=== PATIENT | female | born 1945 | race Caucasian/White ===

== ENCOUNTER 2018-07-10 12:25 | Inpatient (IN) | payer MEDICARE ==
[~2018-07-10] VITALS: Ht 154.9 cm; Wt 54.9 kg
--- NOTE | 2018-07-10 13:00 | EKG ---
[facility] [address] [place] [address] Test Date: 2018-07-10 Test Time: 12:28:48 Pat Name: EDGAR ARANDA Department: Room: Gender: F Irs Agent: : 1945 Requested By: TIMOTHY CERVANTES Order Number: [id number] Reading MD: Thuan Lantigua MD Measurements Intervals [place] Rate: 61 P: 69 [place]: 168 QRS: 56 QRSD: 82 T: 78 QT: 474 QTc: 484 Interpretive Statements SINUS RHYTHM Electronically Signed On 07-14-2018 13:18:08 CDT by Thuan Lantigua MD
--- NOTE | 2018-07-10 13:20 | RAD ---
CHEST AP ONLY Clinical indications: cough and short of air COMPARISON: None available. Findings: Mild bilateral peribronchial thickening is seen. No acute lung infiltrate or pleural effusion or pulmonary edema or lung mass or pneumothorax is seen. The heart size is accentuated due to AP magnification and rotation towards the left side. The pulmonary vasculature, mediastinum and both damian are unremarkable. Impression: Mild bilateral bronchitis which may be acute or chronic in nature. No consolidative pneumonia is seen. Hyperinflation is seen consistent with COPD. Electronically signed by: Franco Wynne MD (07/10/2018 1:17 PM) [place] [id number]
[2018-07-10 13:31] LABS: BASE EXCESS ABG 2 mmol/L (-3-3); HCO3 ABG 22 mmol/L (21-28); PCO2 ABG 24 mmHg (35-46); PO2 ABG 90 mmHg (65-108); SAT O2 ABG 97 % (92-99)
[2018-07-10 13:31] LABS: BASO # 0.1 x10^3/uL (0.0-0.2); BASO % 1 % (0-3); EOS # 0.4 x10^3/uL (0.0-0.7); EOS % 6 % (0-3); HEMATOCRIT 32.8 % (36.0-47.0); HEMOGLOBIN 10.9 g/dL (12.0-15.5); LYMPH # 2.1 x10^3/uL (1.0-4.8); LYMPH % 30 % (24-48); MEAN CORPUSCULAR HEMOGLOBIN 31 pg (25-35); MEAN CORPUSCULAR HGB CONC 33 g/dL (31-37); MEAN CORPUSCULAR VOLUME 94 fL (79-100); MONO # 0.5 x10^3/uL (0.0-1.1); MONO % 7 % (0-9); NEUT # 3.9 x10^3uL (1.8-7.7); NEUT % 56 % (31-73); PLATELET COUNT 286 x10^3/uL (140-400); WHITE BLOOD COUNT 7.1 x10^3/uL (4.0-11.0)
[2018-07-10 13:39] LABS: FIO2 ABG 28
[2018-07-10 13:45] LABS: CALCIUM 8.6 mg/dL (8.5-10.1); CREATININE 0.8 mg/dL (0.6-1.0); GFR 70.3; POTASSIUM 3.5 mmol/L (3.5-5.1)
[2018-07-10 13:46] LABS: PROTHROMBIN TIME PATIENT 15.8 SEC (11.7-14.0)
--- NOTE | 2018-07-10 13:49 | RAD ---
CT HEAD WO CONTRAST Clinical indications: Altered mental status, Comparison: None available. Technique: Noncontrast axial cross sectional scanning of the head was performed. PQRS compliance Statement One or more of the following individualized dose reduction techniques were utilized for this study: 1. Automated exposure control 2. Adjustment of the mA and/or kV according to patient size 3. Use of iterative reconstruction technique Findings: No acute intracranial hemorrhage or midline shift or mass-effect or hydrocephalus or extra-axial fluid collection is seen. There is a small ill-defined area of hypodensity involving the right centrum semiovale. No skull fracture or pneumocephalus is seen. Multiple small round radiolucencies less than 1 cm in size are seen within the calvarium. No opacification of the mastoid sinuses or the paranasal sinuses is seen. The maxillary sinuses are not completely seen in this study. Impression: No acute intracranial hemorrhage is seen. Small ill-defined focus of hypodensity involving the right centrum semiovale. This may represent ischemia and is of indeterminate age. Correlation with clinical history and findings is needed. Small round lucencies of the calvarium are seen measuring less than 1 cm in size. This may be secondary to senile osteoporosis although could also be seen with multiple myeloma if there is a history of such. Electronically signed by: Franco Wynne MD (07/10/2018 1:46 PM) [facility]
[2018-07-10 13:50] LABS: ALBUMIN 3.4 g/dL (3.4-5.0); ALBUMIN/GLOBULIN RATIO 1.3 (1.0-1.7); TOTAL BILIRUBIN 0.5 mg/dL (0.2-1.0); TOTAL PROTEIN 6.1 g/dL (6.4-8.2)
[2018-07-10 14:17] LABS: BILIRUBIN,URINE NEGATIVE (NEG); CLARITY,URINE CLEAR; COLOR,URINE YELLOW; NITRITE,URINE NEGATIVE (NEG); PH,URINE 8.5; PROTEIN,URINE NEGATIVE (NEG-TRACE); UROBILINOGEN,URINE 0.2 mg/dL (0.2 mg/dL)
[2018-07-10 14:27] LABS: HYALINE CASTS, URINE OCCASIONAL /HPF; SQUAMOUS EPITHELIAL CELL,UR FEW /LPF
[2018-07-10 14:28] LABS: BACTERIA,URINE 0 /HPF (0-FEW); RBC,URINE 0 /HPF (0-2); WBC,URINE 0 /HPF (0-4)
[2018-07-10 14:29] LABS: AMORPHOUS SEDIMENT,UR PRESENT /HPF
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
[2018-07-10] MEDS ORDERED: ASPIRIN CHEWABLE 81 MG TABLET. PO ONE (15:45)
[2018-07-10 17:12] VITALS: BP 187/80
[2018-07-10] MEDS ORDERED: CALC600T23 PO (17:58)
[2018-07-10] MEDS ORDERED: ASPI-630 PO (17:58)
[2018-07-10] MEDS ORDERED: ALPR0.5T PO (17:58)
[2018-07-10] MEDS ORDERED: ATOR40TA PO (17:58)
[2018-07-10] MEDS ORDERED: ALEN70TA3 PO (17:58)
[2018-07-10] MEDS ORDERED: ALBU2.5V8 INH ×2 (17:58→18:03)
[2018-07-10] MEDS ORDERED: MEMA10TA PO (17:59)
[2018-07-10] MEDS ORDERED: CHOL2000 PO (17:59)
[2018-07-10] MEDS ORDERED: NITR0.4T22 SL (17:59)
[2018-07-10] MEDS ORDERED: MULT1TAB52 PO (17:59)
[2018-07-10] MEDS ORDERED: ISOS30TA4 PO (17:59)
[2018-07-10] MEDS ORDERED: OMEG100021 PO (17:59)
[2018-07-10] MEDS ORDERED: GUAI400T63 PO (17:59)
[2018-07-10] MEDS ORDERED: UBID10CA7 PO (17:59)
[2018-07-10] MEDS ORDERED: DILT180C2 PO (17:59)
[2018-07-10] MEDS ORDERED: APIX5TAB PO (17:59)
[2018-07-10] MEDS ORDERED: FURO-69 PO (17:59)
[2018-07-10] MEDS ORDERED: LISI10TA2 PO (17:59)
[2018-07-10] MEDS ORDERED: METO-239 PO (17:59)
[2018-07-10] MEDS ORDERED: PYRI200T3 PO (18:03)
[2018-07-10] MEDS ORDERED: LEVO75TA PO (18:03)
[2018-07-10] MEDS ORDERED: UMEC1DIS IH (18:03)
[2018-07-10] MEDS ORDERED: POTA20TA82 PO (18:03)
[2018-07-10] MEDS ORDERED: PANT20TA2 PO (18:03)
[2018-07-10] MEDS ORDERED: TRIA15OI TP (18:03)
[2018-07-10] MEDS ORDERED: NITROGLYCERIN SUBLINGUAL 0.4 MG BOTTLE OF 25. SL PRN (19:00)
[2018-07-10] MEDS ORDERED: TRIAMCINOLONE ACETONIDE 0.1% TOPICAL OINTMENT 15GM TUBE. TP PRN (19:00)
[2018-07-10 19:15] VITALS: BP 158/59
[2018-07-10] MEDS ORDERED: guaiFENesin ORAL 200 MG/10 ML LIQUID. PO PRN (19:15)
[2018-07-10] MEDS: ANORO ELLIPTA INHALATION INH SCH (20:22)
[2018-07-10] MEDS: APIXABAN 5 MG TABLET. PO SCH (20:23)
[2018-07-10] MEDS: ATORVASTATIN CALCIUM 40 MG TABLET. PO SCH (20:23)
--- NOTE | 2018-07-10 21:58 | HP ---
ADMIT DATE: 07/10/2018 CHIEF COMPLAINT: Speech difficulty. HISTORY OF PRESENT ILLNESS: The patient is a pleasant 73-year-old female who normally goes to [facility], but refused to go there. She is somewhat of a poor historian. She is slow to get her words out; I am not sure if this is her baseline or not. Apparently, the ambulance company that transported her here is very familiar with her. She does have a history of COPD as well. Basically, she has been having neuro symptoms rated at 7/10. She states her memory is a little weak at times, she cannot really remember who her doctor is. Symptoms are worse with trying to talk, better with being quiet, describes it as agonizing. I discussed the case with the ER physician. We are going to admit the patient and consult Neurology. PAST MEDICAL HISTORY: COPD and hernia repair. I suspect she may have some underlying dementia. ALLERGIES: None. FAMILY HISTORY: Coronary artery disease. SOCIAL HISTORY: She quit smoking 6 years ago. No drinking or drugs. MEDICATIONS: Reviewed, please refer to the MRAD. REVIEW OF SYSTEMS: Unable to obtain. The patient is borderline poor historian and really cannot seem to get her words out. PHYSICAL EXAMINATION: VITAL SIGNS: Temperature afebrile, pulse 98, respirations 18, blood pressure 132/91. GENERAL: She is awake, alert, talking. We have a 1:1 observer. HEART: Normal S1, S2. LUNGS: Diminished, but clear. ABDOMEN: Soft. EXTREMITIES: Trace edema. SKIN: No rash. ENDOCRINE: No thyromegaly. LYMPHATICS: No cervical nodes. HEMATOLOGIC: No bruising. PSYCHIATRIC: She is anxious. NEUROLOGICAL: She is moving all extremities, but her speech is very slow. She is having a hard time finding her words. LABORATORY DATA: White count 7, hemoglobin 10.9, platelets 286. Electrolytes are normal. ASSESSMENT AND PLAN: Stroke symptoms. The patient is being admitted. We will consult Neurology, suspect she may need an MRI. PT, OT, Speech Therapy. Home meds, frequent labs. DVT prophylaxis. SNU evaluation. PROGNOSIS: Long-term guarded. Suspect she might need nursing home care. LIZ CASTILLO DO DR: RAIZA/yossi JOB#: [id number] / [id number]
[2018-07-10 23:11] VITALS: BP 122/50
[2018-07-11 03:11] VITALS: BP 150/68
[2018-07-11] MEDS: LEVOTHYROXINE 75 MCG TABLET PO SCH (06:36)
[2018-07-11 07:05] VITALS: BP 147/68
[2018-07-11] MEDS ORDERED: ACETAMINOPHEN 650 MG SUPP.RECT. PR PRN (08:45)
[2018-07-11] MEDS ORDERED: ACETAMINOPHEN 325 MG TABLET. PO PRN (08:45)
[2018-07-11] MEDS ORDERED: POTASSIUM CHLORIDE 99 MG PO SCH (09:00)
[2018-07-11] MEDS: MEMANTINE 10 MG TABLET. PO SCH ×3 (09:00→20:48)
[2018-07-11] MEDS ORDERED: UBIDECARENONE 10 MG PO SCH (09:00)
--- NOTE | 2018-07-11 09:13 | PDOC2 ---
NEUROLOGY CONSULT Date of Admission Date of Admission DATE: 07/11/18 TIME: 09:05 Reason for Consult Reason for Consult: Altered mental status Referring Physician Referring Physician: Dr. Gao Source Source: Chart review, Patient History of Present Illness History of Present Illness The patient is a 73-year-old right-handed female who called ambulance [place] because she was not feeling right. Today she's tiny she called because she thinks she has a hernia. Emergency room and history of physical from last night stay for the patient was having trouble getting her words out. She is a very poor historian and has no insight into how long she may have been having any problem. She denies a history of stroke, seizure, or head injury. She usually gets her care at [facility]. Past Medical History Cardiovascular: HTN Pulmonary: COPD CENTRAL NERVOUS SYSTEM: Dementia (listed in nursing history) GI: GERD Psych: Anxiety, Other (paranoid disorder) Endocrine: Osteoporosis Past Surgical History Past Surgical History: No pertinent history Family History Family History: Cancer Social History Social History twice, lives alone, says that she is estranged from her daughter, no tobacco or alcohol Current Medications Current Medications Current Medications Aspirin (Children'S Aspirin) 324 mg 1X ONCE PO Last administered on 07/10/18at 16:36; Start 07/10/18 at 15:45; Stop 07/10/18 at 16:30; Status DC Albuterol Sulfate (Ventolin Neb Soln) 2.5 mg PRN Q6HRS PRN INH SHORTNESS OF BREATH; Start 07/10/18 at 19:00 Alprazolam (Xanax) 0.75 mg PRN DAILY PRN PO ANXIETY / AGITATION; Start 07/10/18 at 19:00 Apixaban (Eliquis) 5 mg BID PO Last administered on 07/10/18at 20:23; Start at 21:00 Aspirin (Children'S Aspirin) 81 mg DAILY PO ; Start 07/11/18 at 09:00 Atorvastatin Calcium (Lipitor) 40 mg QHS PO Last administered on 07/10/18at 20:23 ; Start 07/10/18 at 21:00 Furosemide (Lasix) 10 mg DAILY PO ; Start 07/11/18 at 09:00 Isosorbide Mononitrate (Imdur) 30 mg DAILY PO ; Start 07/11/18 at 09:00 Levothyroxine Sodium (Synthroid) 75 mcg DAILY07 PO Last administered on at 06:36; Start 07/11/18 at 07:00 Lisinopril (Prinivil) 10 mg DAILY PO ; Start 07/11/18 at 09:00 Metoprolol Succinate (Toprol Xl) 25 mg DAILY PO ; Start 07/11/18 at 09:00 Nitroglycerin (Nitrostat) 0.4 mg PRN Q5MIN PRN SL CHEST PAIN; Start 07/10/18 at 19:00 Triamcinolone Acetonide (Kenalog) 1 mayank PRN BID PRN TP RASH; Start 07/10/18 at 19:00 Non-Formulary Medication (Alendronate Sodium (Fosamax)) 1 tab WEEKLY PO ; Start 07/17/18 at 09:00; Status UNV Calcium Carbonate/ Glycine (Oscal) 1,000 mg TIDAFTMEAL PO ; Start 07/11/18 at 09: 00 Vitamin D (Vitamin D3) 2,000 unit DAILY PO ; Start 07/11/18 at 09:00 Diltiazem HCl (Cardizem 24hr Cd) 120 mg DAILY PO ; Start 07/11/18 at 09:00 Guaifenesin (Robitussin) 400 mg PRN BID PRN PO COUGH; Start 07/10/18 at 19:15 Memantine (Namenda) 10 mg DAILY PO ; Start 07/11/18 at 09:00 Multivitamins (Thera M Plus) 1 tab DAILY PO ; Start 07/11/18 at 09:00 Fish Oil (Fish Oil) 1,000 mg DAILY PO ; Start 07/11/18 at 09:00 Pantoprazole Sodium (Protonix) 40 mg DAILYAC PO ; Start 07/11/18 at 07:30 Non-Formulary Medication (Potassium Chloride ) 99 mg DAILY PO ; Start 07/11/18 at 09:00; Status UNV Pyridoxine HCl (Vitamin B-6) 200 mg DAILY PO ; Start 07/11/18 at 09:00 Non-Formulary Medication (Ubidecarenone (Coenzyme Q10)) 10 mg DAILY PO ; Start 07/11/18 at 09:00; Status UNV Non-Formulary Medication 1 ea DAILY INH Last administered on 07/10/18at 20:22; Start 07/11/18 at 09:00 Info (Anti-Coagulation Monitoring By Pharmacy) 1 each PRN DAILY PRN MC SEE COMMENTS; Start 07/11/18 at 07:45 Acetaminophen (Tylenol) 650 mg PRN Q6HRS PRN PO TEMP > 100.4F; Start 07/11/18 at 08:45 Acetaminophen (Tylenol Supp) 650 mg PRN Q4HRS PRN LA TEMP > 100.4F; Start at 08:45 Active Scripts Active Reported Anoro Ellipta 62.5-25 Mcg Inh (Umeclidinium Brm/Vilanterol Tr) 1 Each Disk.w.dev 1 Each IH DAILY Triamcinolone Acetonide 0.1% Oint (Triamcinolone Acetonide) 15 Gm Oint...g. 1 Mayank TP PRN BID MIX WITH EUCERIN DIRECTED BY PHYSICIAN Synthroid (Levothyroxine Sodium) 75 Mcg Tablet 1 Tab PO DAILY B-6 (Pyridoxine HCl (Vitamin B6)) 200 Mg Tablet.er 200 Mg PO DAILY Proair Hfa Inhaler (Albuterol Sulfate) 8.5 Gm Hfa.aer.ad 2 Puff INH PRN Q6HRS PRN Potassium Chloride 20 Meq Tablet.er 99 Mg PO DAILY Protonix (Pantoprazole Sodium) 20 Mg Tablet.dr 40 Mg PO DAILY Fish Oil 1,000 mg Softgel ([place]-3/Dha/Epa/Fish Oil) 1,000 Mg Capsule 1,000 Mg PO DAILY NITROGLYCERIN SubLingual (Nitroglycerin) 0.4 Mg Tab.subl 0.4 Mg SL PRN Q5MIN PRN Multivitamins (Multivitamin) 1 Each Tablet 1 Tab PO DAILY Metoprolol Succinate ( Xl ) (Metoprolol Succinate) 25 Mg Tab.er.24h 25 Mg PO DAILY Namenda (Memantine Hcl) 10 Mg Tablet 10 Mg PO DAILY Lisinopril 10 Mg Tablet 10 Mg PO DAILY Isosorbide Mononitrate Er (Isosorbide Mononitrate) 30 Mg Tab.er.24h 30 Mg PO DAILY Guaifenesin 400 Mg Tablet 400 Mg PO PRN BID Lasix (Furosemide) 20 Mg Tablet 10 Mg PO DAILY Eliquis (Apixaban) 5 Mg Tablet 5 Mg PO BID Cardizem Cd (Diltiazem Hcl) 180 Mg Cap.er.24h 120 Mg PO DAILY Coenzyme Q10 (Ubidecarenone) 10 Mg Capsule 10 Mg PO DAILY Vitamin D (Cholecalciferol (Vitamin D3)) 2,000 Unit Capsule 1 Cap PO DAILY Calcium Carbonate 600 Mg Tablet 1,200 Mg PO TID Lipitor (Atorvastatin Calcium) 40 Mg Tablet 1 Tab PO QHS Aspirin 81 Mg Tab.chew 1 Tab PO DAILY Xanax (Alprazolam) 0.5 Mg Tablet 0.75 Mg PO PRN DAILY PRN Fosamax (Alendronate Sodium) 70 Mg Tablet 1 Tab PO WEEKLY Proair Hfa Inhaler (Albuterol Sulfate) 8.5 Gm Hfa.aer.ad 1 Puff INH PRN Q6HRS PRN Allergies Allergies: Coded Allergies: NSAIDS (Non-Steroidal Anti-Inflamma (Verified Allergy, Unknown, 07/10/18) atropine (Verified Allergy, Unknown, 07/10/18) bacitracin (Verified Allergy, Unknown, 07/10/18) belladonna alkaloids (Verified Allergy, Unknown, 07/10/18) diphenhydramine (Verified Allergy, Unknown, 07/10/18) gramicidin D (Verified Allergy, Unknown, 07/10/18) hyoscyamine (Verified Allergy, Unknown, 07/10/18) ketorolac (Verified Allergy, Unknown, 07/10/18) morphine (Verified Allergy, Unknown, 07/10/18) neomycin (Verified Allergy, Unknown, 07/10/18) penicillin G (Verified Allergy, Unknown, 07/10/18) penicillin V (Verified Allergy, Unknown, 07/10/18) phenobarbital (Verified Allergy, Unknown, 07/10/18) polymyxin B (Verified Allergy, Unknown, 07/10/18) scopolamine (Verified Allergy, Unknown, 07/10/18) ROS Review of System Negative for fever, chills, weight loss, shortness of breath, chest pain, indigestion, hematochezia, melena, and dysuria. Full 14-point review of systems is negative. Physical Exam Physical Examination General: Well-developed, well-nourished white female in no acute distress HEENT: Normocephalic andatraumatic. Temporal arteriespulsatile and nontender. Neck: Supple without bruit, no meningismus Musculoskeletal: Stability:see neurologic. Gait exam:see neurologic. Tone:see neurologic. Strength:see neurologic. Neurological: Mental Status:orientation, memory, attention span/concentration, language, fund of knowledge: she does not know the name of the hospital, she does know the date in the name of the president. Speech is fluent but she hesitates getting her thoughts together. She names, repeats, and comprehends well.. Cranial Nerves:Pupils equal and reactive to light, extraocular movements are intact, visual wright are full to confrontation. Decreased visual acuity right ey (old according to patient). Facial sensation is normal. There is no facial asymmetry. Vestibulo-ocular reflex is intact. Palate elevates and tongue protrudes in midline. All other cranial related problems are negative except as mentioned before.Reflexes:2+ and symmetric with flexor plantar responses. Motor:5/5 strength with normal tone and bulk. Coordination:Finger-nose finger and [id number] testing are normal. Rapid alternating movements and fine finger movements are intact. Gait:Normal, including tandem. Sensory:Normal pinprick, vibration, light touch, proprioception. Vitals VITALS Vital Signs Date Time Temp Pulse Resp B/P (MAP) Pulse Ox O2 Delivery O2 Flow Rate FiO2 07/11/18 08:03 98 Nasal Cannula 2.0 07/11/18 07:05 98.0 51 14 147/68 (94) 98.0 Labs Labs Laboratory Tests Test 07/10/18 12:29 07/10/18 13:20 07/10/18 13:25 07/10/18 14:06 Glucose (Fingerstick) 77 mg/dL (70-99) White Blood Count 7.1 x10^3/uL (4.0-11.0) Red Blood Count 3.50 x10^6/uL (3.50-5.40) Hemoglobin 10.9 g/dL (12.0-15.5) Hematocrit 32.8 % (36.0-47.0) Mean Corpuscular Volume 94 fL (79-100) Mean Corpuscular Hemoglobin 31 pg (25-35) Mean Corpuscular Hemoglobin Concent 33 g/dL (31-37) Red Cell Distribution Width 15.0 % (11.5-14.5) Platelet Count 286 x10^3/uL (140-400) Neutrophils (%) (Auto) 56 % (31-73) Lymphocytes (%) (Auto) 30 % (24-48) Monocytes (%) (Auto) 7 % (0-9) Eosinophils (%) (Auto) 6 % (0-3) Basophils (%) (Auto) 1 % (0-3) Neutrophils # (Auto) 3.9 x10^3uL (1.8-7.7) Lymphocytes # (Auto) 2.1 x10^3/uL (1.0-4.8) Monocytes # (Auto) 0.5 x10^3/uL (0.0-1.1) Eosinophils # (Auto) 0.4 x10^3/uL (0.0-0.7) Basophils # (Auto) 0.1 x10^3/uL (0.0-0.2) Prothrombin Time 15.8 SEC (11.7-14.0) Prothromb Time International Ratio 1.3 (0.8-1.1) Activated Partial Thromboplast Time 44 SEC (24-38) Sodium Level 146 mmol/L (136-145) Potassium Level 3.5 mmol/L (3.5-5.1) Chloride Level 106 mmol/L (98-107) Carbon Dioxide Level 28 mmol/L (21-32) Anion Gap 12 (6-14) Blood Urea Nitrogen 12 mg/dL (7-20) Creatinine 0.8 mg/dL (0.6-1.0) Estimated GFR (Cockcroft-Gault) 70.3 BUN/Creatinine Ratio 15 (6-20) Glucose Level 92 mg/dL (70-99) Calcium Level 8.6 mg/dL (8.5-10.1) Total Bilirubin 0.5 mg/dL (0.2-1.0) Aspartate Amino Transf (AST/SGOT) 27 U/L (15-37) Alanine Aminotransferase (ALT/SGPT) 23 U/L (14-59) Alkaline Phosphatase 81 U/L (46-116) Troponin I Quantitative 0.021 ng/mL (0.000-0.055) DH-Ncc-N-Type Natriuretic Peptide 631 pg/mL (0-124) Total Protein 6.1 g/dL (6.4-8.2) Albumin 3.4 g/dL (3.4-5.0) Albumin/Globulin Ratio 1.3 (1.0-1.7) Lipase 105 U/L (73-393) O2 Saturation 97 % (92-99) Arterial Blood pH 7.59 (7.35-7.45) Arterial Blood pCO2 at Patient Temp 24 mmHg (35-46) Arterial Blood pO2 at Patient Temp 90 mmHg (65-108) Arterial Blood HCO3 22 mmol/L (21-28) Arterial Blood Base Excess 2 mmol/L (-3-3) FiO2 28 Urine Collection Type U cath Urine Color Yellow Urine Clarity Clear Urine pH 8.5 Urine Specific [place] 1.010 Urine Protein Negative mg/dL (NEG-TRACE) Urine Glucose (UA) Negative mg/dL (NEG) Urine Ketones (Stick) Negative mg/dL (NEG) Urine Blood Negative (NEG) Urine Nitrite Negative (NEG) Urine Bilirubin Negative (NEG) Urine Urobilinogen Dipstick 0.2 mg/dL (0.2 mg/dL) Urine Leukocyte Esterase Negative (NEG) Urine RBC 0 /HPF (0-2) Urine WBC 0 /HPF (0-4) Urine Squamous Epithelial Cells Few /LPF Urine Amorphous Sediment Present /HPF Urine Bacteria 0 /HPF (0-FEW) Urine Hyaline Casts Occasional /HPF Urine Mucus Slight /LPF Laboratory Tests Test 07/10/18 12:29 07/10/18 13:20 07/10/18 13:25 07/10/18 14:06 Glucose (Fingerstick) 77 mg/dL (70-99) White Blood Count 7.1 x10^3/uL (4.0-11.0) Red Blood Count 3.50 x10^6/uL (3.50-5.40) Hemoglobin 10.9 g/dL (12.0-15.5) Hematocrit 32.8 % (36.0-47.0) Mean Corpuscular Volume 94 fL (79-100) Mean Corpuscular Hemoglobin 31 pg (25-35) Mean Corpuscular Hemoglobin Concent 33 g/dL (31-37) Red Cell Distribution Width 15.0 % (11.5-14.5) Platelet Count 286 x10^3/uL (140-400) Neutrophils (%) (Auto) 56 % (31-73) Lymphocytes (%) (Auto) 30 % (24-48) Monocytes (%) (Auto) 7 % (0-9) Eosinophils (%) (Auto) 6 % (0-3) Basophils (%) (Auto) 1 % (0-3) Neutrophils # (Auto) 3.9 x10^3uL (1.8-7.7) Lymphocytes # (Auto) 2.1 x10^3/uL (1.0-4.8) Monocytes # (Auto) 0.5 x10^3/uL (0.0-1.1) Eosinophils # (Auto) 0.4 x10^3/uL (0.0-0.7) Basophils # (Auto) 0.1 x10^3/uL (0.0-0.2) Prothrombin Time 15.8 SEC (11.7-14.0) Prothromb Time International Ratio 1.3 (0.8-1.1) Activated Partial Thromboplast Time 44 SEC (24-38) Sodium Level 146 mmol/L (136-145) Potassium Level 3.5 mmol/L (3.5-5.1) Chloride Level 106 mmol/L (98-107) Carbon Dioxide Level 28 mmol/L (21-32) Anion Gap 12 (6-14) Blood Urea Nitrogen 12 mg/dL (7-20) Creatinine 0.8 mg/dL (0.6-1.0) Estimated GFR (Cockcroft-Gault) 70.3 BUN/Creatinine Ratio 15 (6-20) Glucose Level 92 mg/dL (70-99) Calcium Level 8.6 mg/dL (8.5-10.1) Total Bilirubin 0.5 mg/dL (0.2-1.0) Aspartate Amino Transf (AST/SGOT) 27 U/L (15-37) Alanine Aminotransferase (ALT/SGPT) 23 U/L (14-59) Alkaline Phosphatase 81 U/L (46-116) Troponin I Quantitative 0.021 ng/mL (0.000-0.055) GY-Xya-S-Type Natriuretic Peptide 631 pg/mL (0-124) Total Protein 6.1 g/dL (6.4-8.2) Albumin 3.4 g/dL (3.4-5.0) Albumin/Globulin Ratio 1.3 (1.0-1.7) Lipase 105 U/L (73-393) O2 Saturation 97 % (92-99) Arterial Blood pH 7.59 (7.35-7.45) Arterial Blood pCO2 at Patient Temp 24 mmHg (35-46) Arterial Blood pO2 at Patient Temp 90 mmHg (65-108) Arterial Blood HCO3 22 mmol/L (21-28) Arterial Blood Base Excess 2 mmol/L (-3-3) FiO2 28 Urine Collection Type U cath Urine Color Yellow Urine Clarity Clear Urine pH 8.5 Urine Specific [place] 1.010 Urine Protein Negative mg/dL (NEG-TRACE) Urine Glucose (UA) Negative mg/dL (NEG) Urine Ketones (Stick) Negative mg/dL (NEG) Urine Blood Negative (NEG) Urine Nitrite Negative (NEG) Urine Bilirubin Negative (NEG) Urine Urobilinogen Dipstick 0.2 mg/dL (0.2 mg/dL) Urine Leukocyte Esterase Negative (NEG) Urine RBC 0 /HPF (0-2) Urine WBC 0 /HPF (0-4) Urine Squamous Epithelial Cells Few /LPF Urine Amorphous Sediment Present /HPF Urine Bacteria 0 /HPF (0-FEW) Urine Hyaline Casts Occasional /HPF Urine Mucus Slight /LPF Images Images CT head: No acute intracranial hemorrhage or midline shift or mass-effect or hydrocephalus or extra-axial fluid collection is seen. There is a small ill-defined area of hypodensity involving the right centrum semiovale. No skull fracture or pneumocephalus is seen. Multiple small round radiolucencies less than 1 cm in size are seen within the calvarium. No opacification of the mastoid sinuses or the paranasal sinuses is seen. The maxillary sinuses are not completely seen in this study. Impression: No acute intracranial hemorrhage is seen. Small ill-defined focus of hypodensity involving the right centrum semiovale. This may represent ischemia and is of indeterminate age. Correlation with clinical history and findings is needed. Small round lucencies of the calvarium are seen measuring less than 1 cm in size. This may be secondary to senile osteoporosis although could also be seen with multiple myeloma if there is a history of such. Assessment/Plan Assessment/Plan Impression: I really get a flavor of chronic dementia which is also in the nursing history but we don't have any clear-cut past history. I find no focal abnormalities. I was jd Grace had a small left hemispheric stroke affecting language. There may be metabolic abnormalities we have not uncovered. Even ictal dementia is possible. Recommendations: MRI of the brain Echocardiogram Carotid Doppler studies Laboratory studies Rehabilitation modalities. Most likely she needs placement. No family members are listed to talk to and she does not know of anyone I should talk to about her case. Thank you for letting me help of the patient's care. ZENY SZYMANSKI MD Jul 11, 2018 09:13
[2018-07-11] MEDS: OMEGA-3 FATTY ACIDS/FISH OIL 1,000 MG CAPSULE. PO SCH (09:15)
[2018-07-11] MEDS: MULTIVITAMIN with MINERAL TABLET. PO SCH (09:16)
[2018-07-11] MEDS: PANTOPRAZOLE 40 MG TABLET.DR. PO SCH (09:16)
[2018-07-11] MEDS: CALCIUM CARBONATE 500 MG TABLET PO SCH ×3 (09:16→18:10)
[2018-07-11] MEDS: FUROSEMIDE 20 MG TABLET PO SCH (09:16)
[2018-07-11] MEDS: METOPROLOL SUCC 24HR ER 25 MG TAB.ER.24H. PO SCH (09:17)
[2018-07-11] MEDS: ASPIRIN CHEWABLE 81 MG TABLET. PO SCH (09:17)
[2018-07-11] MEDS: CHOLECALCIFEROL (VITAMIN D3) 1,000 UNIT TABLET PO SCH (09:17)
[2018-07-11] MEDS: ISOSORBIDE MONONITRATE ER 30 MG TAB.ER.24H PO SCH (09:17)
[2018-07-11] MEDS: APIXABAN 5 MG TABLET. PO SCH ×2 (09:17→20:48)
[2018-07-11] MEDS: PYRIDOXINE 50 MG TABLET. PO SCH (09:18)
[2018-07-11] MEDS: LISINOPRIL 10 MG TABLET PO SCH (09:18)
[2018-07-11] MEDS: ANTI-COAG MONITOR BY PHARMACY. MC PRN (10:48)
[2018-07-11 11:00] VITALS: BP 141/60
--- NOTE | 2018-07-11 11:29 | PDOC ---
PROGRESS NOTES Chief Complaint Chief Complaint Speech Difficulty Confusion CVA? Memory loss- Dementia? COPD FH of CAD Former smoker History of Present Illness History of Present Illness Ms Jimenez is a 73 yo F who was admitted for confusion/difficulty speaking, PMH COPD and former smoker She was seen and examined in her room this morning, NAD She was resting comfortably, sitting on the side of her bed with 1:1 at bedside She reported feeling confused and spoke at some length about chronic neck pain she experiences Discussed with RN Vitals Vitals Vital Signs Date Time Temp Pulse Resp B/P (MAP) Pulse Ox O2 Delivery O2 Flow Rate FiO2 07/11/18 09:18 51 147/68 07/11/18 08:03 98 Nasal Cannula 2.0 07/11/18 07:05 98.0 14 98.0 Physical Exam General: Alert, Cooperative, No acute distress Heart: No murmurs, Other (bradycardic- 50's) Lungs: Clear Abdomen: Normal bowel sounds, Soft Extremities: No clubbing, No edema Skin: No rashes, No breakdown, No significant lesion Labs LABS Laboratory Tests Test 07/10/18 12:29 07/10/18 13:20 07/10/18 13:25 07/10/18 14:06 Glucose (Fingerstick) 77 mg/dL (70-99) White Blood Count 7.1 x10^3/uL (4.0-11.0) Red Blood Count 3.50 x10^6/uL (3.50-5.40) Hemoglobin 10.9 g/dL (12.0-15.5) Hematocrit 32.8 % (36.0-47.0) Mean Corpuscular Volume 94 fL (79-100) Mean Corpuscular Hemoglobin 31 pg (25-35) Mean Corpuscular Hemoglobin Concent 33 g/dL (31-37) Red Cell Distribution Width 15.0 % (11.5-14.5) Platelet Count 286 x10^3/uL (140-400) Neutrophils (%) (Auto) 56 % (31-73) Lymphocytes (%) (Auto) 30 % (24-48) Monocytes (%) (Auto) 7 % (0-9) Eosinophils (%) (Auto) 6 % (0-3) Basophils (%) (Auto) 1 % (0-3) Neutrophils # (Auto) 3.9 x10^3uL (1.8-7.7) Lymphocytes # (Auto) 2.1 x10^3/uL (1.0-4.8) Monocytes # (Auto) 0.5 x10^3/uL (0.0-1.1) Eosinophils # (Auto) 0.4 x10^3/uL (0.0-0.7) Basophils # (Auto) 0.1 x10^3/uL (0.0-0.2) Prothrombin Time 15.8 SEC (11.7-14.0) Prothromb Time International Ratio 1.3 (0.8-1.1) Activated Partial Thromboplast Time 44 SEC (24-38) Sodium Level 146 mmol/L (136-145) Potassium Level 3.5 mmol/L (3.5-5.1) Chloride Level 106 mmol/L (98-107) Carbon Dioxide Level 28 mmol/L (21-32) Anion Gap 12 (6-14) Blood Urea Nitrogen 12 mg/dL (7-20) Creatinine 0.8 mg/dL (0.6-1.0) Estimated GFR (Cockcroft-Gault) 70.3 BUN/Creatinine Ratio 15 (6-20) Glucose Level 92 mg/dL (70-99) Calcium Level 8.6 mg/dL (8.5-10.1) Total Bilirubin 0.5 mg/dL (0.2-1.0) Aspartate Amino Transf (AST/SGOT) 27 U/L (15-37) Alanine Aminotransferase (ALT/SGPT) 23 U/L (14-59) Alkaline Phosphatase 81 U/L (46-116) Troponin I Quantitative 0.021 ng/mL (0.000-0.055) BK-Gco-E-Type Natriuretic Peptide 631 pg/mL (0-124) Total Protein 6.1 g/dL (6.4-8.2) Albumin 3.4 g/dL (3.4-5.0) Albumin/Globulin Ratio 1.3 (1.0-1.7) Lipase 105 U/L (73-393) O2 Saturation 97 % (92-99) Arterial Blood pH 7.59 (7.35-7.45) Arterial Blood pCO2 at Patient Temp 24 mmHg (35-46) Arterial Blood pO2 at Patient Temp 90 mmHg (65-108) Arterial Blood HCO3 22 mmol/L (21-28) Arterial Blood Base Excess 2 mmol/L (-3-3) FiO2 28 Urine Collection Type U cath Urine Color Yellow Urine Clarity Clear Urine pH 8.5 Urine Specific [place] 1.010 Urine Protein Negative mg/dL (NEG-TRACE) Urine Glucose (UA) Negative mg/dL (NEG) Urine Ketones (Stick) Negative mg/dL (NEG) Urine Blood Negative (NEG) Urine Nitrite Negative (NEG) Urine Bilirubin Negative (NEG) Urine Urobilinogen Dipstick 0.2 mg/dL (0.2 mg/dL) Urine Leukocyte Esterase Negative (NEG) Urine RBC 0 /HPF (0-2) Urine WBC 0 /HPF (0-4) Urine Squamous Epithelial Cells Few /LPF Urine Amorphous Sediment Present /HPF Urine Bacteria 0 /HPF (0-FEW) Urine Hyaline Casts Occasional /HPF Urine Mucus Slight /LPF Review of Systems Review of Systems Pt reports mild generalized weakness, confusion, and neck pain Pt denies CO, SOB, n/v Assessment and Plan Assessmemt and Plan Speech Difficulty Confusion CVA? Memory loss- Dementia? COPD FH of CAD Former smoker Plan Neurology saw her today- recommend MRI, Echocardiogram, Carotid Doppler studies SNU evaluation PT/OT speech therapy home meds routine labs DVT prophylaxis D/C dispo pending- likely SNU will be needed Comment Review of Relevant I have reviewed the following items vidal (where applicable) has been applied. Labs Laboratory Tests Test 07/10/18 12:29 07/10/18 13:20 07/10/18 13:25 07/10/18 14:06 Glucose (Fingerstick) 77 mg/dL (70-99) White Blood Count 7.1 x10^3/uL (4.0-11.0) Red Blood Count 3.50 x10^6/uL (3.50-5.40) Hemoglobin 10.9 g/dL (12.0-15.5) Hematocrit 32.8 % (36.0-47.0) Mean Corpuscular Volume 94 fL (79-100) Mean Corpuscular Hemoglobin 31 pg (25-35) Mean Corpuscular Hemoglobin Concent 33 g/dL (31-37) Red Cell Distribution Width 15.0 % (11.5-14.5) Platelet Count 286 x10^3/uL (140-400) Neutrophils (%) (Auto) 56 % (31-73) Lymphocytes (%) (Auto) 30 % (24-48) Monocytes (%) (Auto) 7 % (0-9) Eosinophils (%) (Auto) 6 % (0-3) Basophils (%) (Auto) 1 % (0-3) Neutrophils # (Auto) 3.9 x10^3uL (1.8-7.7) Lymphocytes # (Auto) 2.1 x10^3/uL (1.0-4.8) Monocytes # (Auto) 0.5 x10^3/uL (0.0-1.1) Eosinophils # (Auto) 0.4 x10^3/uL (0.0-0.7) Basophils # (Auto) 0.1 x10^3/uL (0.0-0.2) Prothrombin Time 15.8 SEC (11.7-14.0) Prothromb Time International Ratio 1.3 (0.8-1.1) Activated Partial Thromboplast Time 44 SEC (24-38) Sodium Level 146 mmol/L (136-145) Potassium Level 3.5 mmol/L (3.5-5.1) Chloride Level 106 mmol/L (98-107) Carbon Dioxide Level 28 mmol/L (21-32) Anion Gap 12 (6-14) Blood Urea Nitrogen 12 mg/dL (7-20) Creatinine 0.8 mg/dL (0.6-1.0) Estimated GFR (Cockcroft-Gault) 70.3 BUN/Creatinine Ratio 15 (6-20) Glucose Level 92 mg/dL (70-99) Calcium Level 8.6 mg/dL (8.5-10.1) Total Bilirubin 0.5 mg/dL (0.2-1.0) Aspartate Amino Transf (AST/SGOT) 27 U/L (15-37) Alanine Aminotransferase (ALT/SGPT) 23 U/L (14-59) Alkaline Phosphatase 81 U/L (46-116) Troponin I Quantitative 0.021 ng/mL (0.000-0.055) OX-Whi-W-Type Natriuretic Peptide 631 pg/mL (0-124) Total Protein 6.1 g/dL (6.4-8.2) Albumin 3.4 g/dL (3.4-5.0) Albumin/Globulin Ratio 1.3 (1.0-1.7) Lipase 105 U/L (73-393) O2 Saturation 97 % (92-99) Arterial Blood pH 7.59 (7.35-7.45) Arterial Blood pCO2 at Patient Temp 24 mmHg (35-46) Arterial Blood pO2 at Patient Temp 90 mmHg (65-108) Arterial Blood HCO3 22 mmol/L (21-28) Arterial Blood Base Excess 2 mmol/L (-3-3) FiO2 28 Urine Collection Type U cath Urine Color Yellow Urine Clarity Clear Urine pH 8.5 Urine Specific [place] 1.010 Urine Protein Negative mg/dL (NEG-TRACE) Urine Glucose (UA) Negative mg/dL (NEG) Urine Ketones (Stick) Negative mg/dL (NEG) Urine Blood Negative (NEG) Urine Nitrite Negative (NEG) Urine Bilirubin Negative (NEG) Urine Urobilinogen Dipstick 0.2 mg/dL (0.2 mg/dL) Urine Leukocyte Esterase Negative (NEG) Urine RBC 0 /HPF (0-2) Urine WBC 0 /HPF (0-4) Urine Squamous Epithelial Cells Few /LPF Urine Amorphous Sediment Present /HPF Urine Bacteria 0 /HPF (0-FEW) Urine Hyaline Casts Occasional /HPF Urine Mucus Slight /LPF Laboratory Tests Test 07/10/18 12:29 07/10/18 13:20 07/10/18 13:25 07/10/18 14:06 Glucose (Fingerstick) 77 mg/dL (70-99) White Blood Count 7.1 x10^3/uL (4.0-11.0) Red Blood Count 3.50 x10^6/uL (3.50-5.40) Hemoglobin 10.9 g/dL (12.0-15.5) Hematocrit 32.8 % (36.0-47.0) Mean Corpuscular Volume 94 fL (79-100) Mean Corpuscular Hemoglobin 31 pg (25-35) Mean Corpuscular Hemoglobin Concent 33 g/dL (31-37) Red Cell Distribution Width 15.0 % (11.5-14.5) Platelet Count 286 x10^3/uL (140-400) Neutrophils (%) (Auto) 56 % (31-73) Lymphocytes (%) (Auto) 30 % (24-48) Monocytes (%) (Auto) 7 % (0-9) Eosinophils (%) (Auto) 6 % (0-3) Basophils (%) (Auto) 1 % (0-3) Neutrophils # (Auto) 3.9 x10^3uL (1.8-7.7) Lymphocytes # (Auto) 2.1 x10^3/uL (1.0-4.8) Monocytes # (Auto) 0.5 x10^3/uL (0.0-1.1) Eosinophils # (Auto) 0.4 x10^3/uL (0.0-0.7) Basophils # (Auto) 0.1 x10^3/uL (0.0-0.2) Prothrombin Time 15.8 SEC (11.7-14.0) Prothromb Time International Ratio 1.3 (0.8-1.1) Activated Partial Thromboplast Time 44 SEC (24-38) Sodium Level 146 mmol/L (136-145) Potassium Level 3.5 mmol/L (3.5-5.1) Chloride Level 106 mmol/L (98-107) Carbon Dioxide Level 28 mmol/L (21-32) Anion Gap 12 (6-14) Blood Urea Nitrogen 12 mg/dL (7-20) Creatinine 0.8 mg/dL (0.6-1.0) Estimated GFR (Cockcroft-Gault) 70.3 BUN/Creatinine Ratio 15 (6-20) Glucose Level 92 mg/dL (70-99) Calcium Level 8.6 mg/dL (8.5-10.1) Total Bilirubin 0.5 mg/dL (0.2-1.0) Aspartate Amino Transf (AST/SGOT) 27 U/L (15-37) Alanine Aminotransferase (ALT/SGPT) 23 U/L (14-59) Alkaline Phosphatase 81 U/L (46-116) Troponin I Quantitative 0.021 ng/mL (0.000-0.055) SW-Lkm-C-Type Natriuretic Peptide 631 pg/mL (0-124) Total Protein 6.1 g/dL (6.4-8.2) Albumin 3.4 g/dL (3.4-5.0) Albumin/Globulin Ratio 1.3 (1.0-1.7) Lipase 105 U/L (73-393) O2 Saturation 97 % (92-99) Arterial Blood pH 7.59 (7.35-7.45) Arterial Blood pCO2 at Patient Temp 24 mmHg (35-46) Arterial Blood pO2 at Patient Temp 90 mmHg (65-108) Arterial Blood HCO3 22 mmol/L (21-28) Arterial Blood Base Excess 2 mmol/L (-3-3) FiO2 28 Urine Collection Type U cath Urine Color Yellow Urine Clarity Clear Urine pH 8.5 Urine Specific [place] 1.010 Urine Protein Negative mg/dL (NEG-TRACE) Urine Glucose (UA) Negative mg/dL (NEG) Urine Ketones (Stick) Negative mg/dL (NEG) Urine Blood Negative (NEG) Urine Nitrite Negative (NEG) Urine Bilirubin Negative (NEG) Urine Urobilinogen Dipstick 0.2 mg/dL (0.2 mg/dL) Urine Leukocyte Esterase Negative (NEG) Urine RBC 0 /HPF (0-2) Urine WBC 0 /HPF (0-4) Urine Squamous Epithelial Cells Few /LPF Urine Amorphous Sediment Present /HPF Urine Bacteria 0 /HPF (0-FEW) Urine Hyaline Casts Occasional /HPF Urine Mucus Slight /LPF Medications Current Medications Aspirin (Children'S Aspirin) 324 mg 1X ONCE PO Last administered on 07/10/18at 16:36; Start 07/10/18 at 15:45; Stop 07/10/18 at 16:30; Status DC Albuterol Sulfate (Ventolin Neb Soln) 2.5 mg PRN Q6HRS PRN INH SHORTNESS OF BREATH; Start 07/10/18 at 19:00 Alprazolam (Xanax) 0.75 mg PRN DAILY PRN PO ANXIETY / AGITATION; Start 07/10/18 at 19:00 Apixaban (Eliquis) 5 mg BID PO Last administered on 07/11/18at 09:17; Start at 21:00 Aspirin (Children'S Aspirin) 81 mg DAILY PO Last administered on 07/11/18at 09:17 ; Start 07/11/18 at 09:00 Atorvastatin Calcium (Lipitor) 40 mg QHS PO Last administered on 07/10/18at 20:23 ; Start 07/10/18 at 21:00 Furosemide (Lasix) 10 mg DAILY PO Last administered on 07/11/18at 09:16; Start at 09:00 Isosorbide Mononitrate (Imdur) 30 mg DAILY PO Last administered on 07/11/18 09: 17; Start 07/11/18 at 09:00 Levothyroxine Sodium (Synthroid) 75 mcg DAILY07 PO Last administered on 06:36; Start 07/11/18 at 07:00 Lisinopril (Prinivil) 10 mg DAILY PO Last administered on 07/11/18 09:18; Start 07/11/18 at 09:00 Metoprolol Succinate (Toprol Xl) 25 mg DAILY PO Last administered on 07/11/18 09:17; Start 07/11/18 at 09:00 Nitroglycerin (Nitrostat) 0.4 mg PRN Q5MIN PRN SL CHEST PAIN; Start 07/10/18 at 19:00 Triamcinolone Acetonide (Kenalog) 1 mayank PRN BID PRN TP RASH; Start 07/10/18 at 19:00 Non-Formulary Medication (Alendronate Sodium (Fosamax)) 1 tab WEEKLY PO ; Start 07/17/18 at 09:00; Status UNV Calcium Carbonate/ Glycine (Oscal) 1,000 mg TIDAFTMEAL PO Last administered on 07/11/18 09:16; Start 07/11/18 at 09:00 Vitamin D (Vitamin D3) 2,000 unit DAILY PO Last administered on 07/11/18 09:17 ; Start 07/11/18 at 09:00 Diltiazem HCl (Cardizem 24hr Cd) 120 mg DAILY PO Last administered on 07/11/18 09:16; Start 07/11/18 at 09:00 Guaifenesin (Robitussin) 400 mg PRN BID PRN PO COUGH; Start 07/10/18 at 19:15 Memantine (Namenda) 10 mg DAILY PO Last administered on 07/11/18 09:16; Start 07/11/18 at 09:00 Multivitamins (Thera M Plus) 1 tab DAILY PO Last administered on 07/11/18 09:16 ; Start 07/11/18 at 09:00 Fish Oil (Fish Oil) 1,000 mg DAILY PO Last administered on 07/11/18 09:15; Start 07/11/18 at 09:00 Pantoprazole Sodium (Protonix) 40 mg DAILYAC PO Last administered on 07/11/18at 09:16; Start 07/11/18 at 07:30 Non-Formulary Medication (Potassium Chloride ) 99 mg DAILY PO ; Start 07/11/18 at 09:00; Status UNV Pyridoxine HCl (Vitamin B-6) 200 mg DAILY PO Last administered on 07/11/18at 09: 18; Start 07/11/18 at 09:00 Non-Formulary Medication (Ubidecarenone (Coenzyme Q10)) 10 mg DAILY PO ; Start 07/11/18 at 09:00; Status UNV Non-Formulary Medication 1 ea DAILY INH Last administered on 07/10/18at 20:22; Start 07/11/18 at 09:00 Info (Anti-Coagulation Monitoring By Pharmacy) 1 each PRN DAILY PRN MC SEE COMMENTS Last administered on 07/11/18at 10:48; Start 07/11/18 at 07:45 Acetaminophen (Tylenol) 650 mg PRN Q6HRS PRN PO TEMP > 100.4F; Start 07/11/18 at 08:45 Acetaminophen (Tylenol Supp) 650 mg PRN Q4HRS PRN OK TEMP > 100.4F; Start at 08:45 Active Scripts Active Reported Anoro Ellipta 62.5-25 Mcg Inh (Umeclidinium Brm/Vilanterol Tr) 1 Each Disk.w.dev 1 Each IH DAILY Triamcinolone Acetonide 0.1% Oint (Triamcinolone Acetonide) 15 Gm Oint...g. 1 Mayank TP PRN BID MIX WITH EUCERIN DIRECTED BY PHYSICIAN Synthroid (Levothyroxine Sodium) 75 Mcg Tablet 1 Tab PO DAILY B-6 (Pyridoxine HCl (Vitamin B6)) 200 Mg Tablet.er 200 Mg PO DAILY Proair Hfa Inhaler (Albuterol Sulfate) 8.5 Gm Hfa.aer.ad 2 Puff INH PRN Q6HRS PRN Potassium Chloride 20 Meq Tablet.er 99 Mg PO DAILY Protonix (Pantoprazole Sodium) 20 Mg Tablet.dr 40 Mg PO DAILY Fish Oil 1,000 mg Softgel ([place]-3/Dha/Epa/Fish Oil) 1,000 Mg Capsule 1,000 Mg PO DAILY NITROGLYCERIN SubLingual (Nitroglycerin) 0.4 Mg Tab.subl 0.4 Mg SL PRN Q5MIN PRN Multivitamins (Multivitamin) 1 Each Tablet 1 Tab PO DAILY Metoprolol Succinate ( Xl ) (Metoprolol Succinate) 25 Mg Tab.er.24h 25 Mg PO DAILY Namenda (Memantine Hcl) 10 Mg Tablet 10 Mg PO DAILY Lisinopril 10 Mg Tablet 10 Mg PO DAILY Isosorbide Mononitrate Er (Isosorbide Mononitrate) 30 Mg Tab.er.24h 30 Mg PO DAILY Guaifenesin 400 Mg Tablet 400 Mg PO PRN BID Lasix (Furosemide) 20 Mg Tablet 10 Mg PO DAILY Eliquis (Apixaban) 5 Mg Tablet 5 Mg PO BID Cardizem Cd (Diltiazem Hcl) 180 Mg Cap.er.24h 120 Mg PO DAILY Coenzyme Q10 (Ubidecarenone) 10 Mg Capsule 10 Mg PO DAILY Vitamin D (Cholecalciferol (Vitamin D3)) 2,000 Unit Capsule 1 Cap PO DAILY Calcium Carbonate 600 Mg Tablet 1,200 Mg PO TID Lipitor (Atorvastatin Calcium) 40 Mg Tablet 1 Tab PO QHS Aspirin 81 Mg Tab.chew 1 Tab PO DAILY Xanax (Alprazolam) 0.5 Mg Tablet 0.75 Mg PO PRN DAILY PRN Fosamax (Alendronate Sodium) 70 Mg Tablet 1 Tab PO WEEKLY Proair Hfa Inhaler (Albuterol Sulfate) 8.5 Gm Hfa.aer.ad 1 Puff INH PRN Q6HRS PRN Vitals/I & O Vital Sign - Last 24 Hours 07/10/18 07/10/18 07/10/18 07/10/18 12:35 12:45 13:00 13:15 Temp 98.9 98.9 Pulse 60 63 58 60 Resp 26 26 26 24 B/P (MAP) 170/70 (103) Pulse Ox 100 98 98 98 O2 Delivery Nasal Cannula O2 Flow Rate 2.0 07/10/18 07/10/18 07/10/18 07/10/18 13:33 13:39 13:59 14:19 Pulse 61 60 60 Resp 22 20 20 Pulse Ox 100 98 100 O2 Delivery Nasal Cannula O2 Flow Rate 2.0 07/10/18 07/10/18 07/10/18 07/10/18 14:34 14:39 14:59 15:19 Pulse 64 60 60 60 Resp 20 20 20 24 Pulse Ox 100 100 100 100 07/10/18 07/10/18 07/10/18 07/10/18 15:39 15:59 16:19 16:39 Pulse 66 56 60 58 Resp 30 32 37 32 Pulse Ox 100 100 100 100 07/10/18 07/10/18 07/10/18 07/10/18 17:12 19:15 20:00 23:11 Temp 98.2 98.0 98.1 98.2 98.0 98.1 Pulse 60 81 63 Resp 16 20 18 B/P (MAP) 187/80 (115) 158/59 (92) 122/50 (74) Pulse Ox 97 97 O2 Delivery Nasal Cannula Nasal Cannula Nasal Cannula Nasal Cannula O2 Flow Rate 2.0 2.0 2.0 2.0 07/11/18 07/11/18 07/11/18 07/11/18 03:11 07:05 08:03 09:16 Temp 97.9 98.0 97.9 98.0 Pulse 60 51 51 Resp 20 14 B/P (MAP) 150/68 (95) 147/68 (94) 147/68 Pulse Ox 93 96 98 O2 Delivery Room Air Nasal Cannula Nasal Cannula O2 Flow Rate 2.0 2.0 07/11/18 07/11/18 07/11/18 09:17 09:17 09:18 Pulse 51 51 51 B/P (MAP) 147/68 147/68 147/68 Intake and Output 07/10/18 07/10/18 07/11/18 14:59 22:59 06:59 Intake Total 480 ml Balance 480 ml LIZ CASTILLO III DO Jul 11, 2018 11:29
--- NOTE | 2018-07-11 12:30 | CARD ---
MR#: [id number] Date of Study: 07/11/2018 Ordering Physician: ZENY SZYMANSKI, Referring Physician: Ольга MATHUR: Daija Chongmichael APPROVED REPORT EXAM: Two-dimensional and M-mode echocardiogram with Doppler and color Doppler. Other Information Quality : GoodHR: 55bpm Rhythm : NSR INDICATION CVA/TIA RISK FACTORS Hypertension Previous smoker 2D DIMENSIONS Left Atrium(2D)4.2 (1.6-4.0cm)IVSd1.2 (0.7-1.1cm) Aortic Root(2D)3.0 (2.0-3.7cm)LVDd6.1 (3.9-5.9cm) LVOT Diameter2.2 (1.8-2.4cm)PWd1.1 (0.7-1.1cm) LVDs4.7 (2.5-4.0cm)FS (%) 22.3 % SV82.3 mlLVEF(%)44.1 (>50%) Aortic Valve AoV Peak Gunner.117.9cm/sAoV VTI28.4cm AO Peak GR.5.6mmHgLVOT Peak Gunner.93.7cm/s LVOT VTI 22.45cmAO Mean GR.3mmHg JACOBO (VMAX)2.22mn8HIZ (VTI)3.06cm2 Mitral Valve MV E Lunvyhrx96.4cm/sMV E Peak Gr.80mmHg MV DECEL NVBY321plSH A Mwpelcni06.8cm/s MV GAU83nlN/A Ratio1.7 MVA (PHT)3.76cm2 TDI E/Lateral E'13.6E/Medial E'12.2 Pulmonary Valve PV Peak Ukbhgmzu696.9cm/sPV Peak Grad.4mmHg Tricuspid Valve TR P. Lmnpfezq740mm/sRAP [id number] TR Peak Gr.91khJsBKGE77elVw Pulmonary Vein S1 Duyijobv67.1cm/sD2 Txqdprxw16.1cm/s PVa fhdyxufc276trmb LEFT VENTRICLE The Left Ventricle is mildly dilated. There is mild concentric left ventricular hypertrophy. The left ventricular systolic function is normal and the ejection fraction is within normal range. The Ejecti on Fraction is 50-55%. There is normal LV segmental wall motion. Transmitral Doppler flow pattern is Grade II-pseudonormal filling dynamics. RIGHT VENTRICLE The right ventricle is normal size. There is normal right ventricular wall thickness. The right ventr icular systolic function is normal. ATRIA The left atrium is mildly dilated. The right atrium size is normal. The interatrial septum is intact with no evidence for an atrial septal defect or patent foramen ovale as noted on 2-D or Doppler imagi ng. AORTIC VALVE The aortic valve is normal in structure and function. Doppler and Color Flow revealed trace aortic re gurgitation. There is no significant aortic valvular stenosis. MITRAL VALVE The mitral valve is thickened but opens well. There is no evidence of mitral valve prolapse. There is no mitral valve stenosis. Doppler and Color Flow revealed no mitral valve regurgitation noted. TRICUSPID VALVE The tricuspid valve is normal in structure and function. Doppler and Color Flow revealed trace tricus pid regurgitation with an estimated PAP of 41 mmHg. There is mild pulmonary hypertension. There is no tricuspid valve stenosis. PULMONIC VALVE The pulmonic valve is not well visualized. Doppler and Color Flow revealed mild pulmonic valvular reg urgitation. GREAT VESSELS The aortic root is normal in size. The IVC is dilated and collapses >50% with inspiration. PERICARDIAL EFFUSION There is no evidence of significant pericardial effusion. Critical Notification Critical Value: No <Conclusion> The left ventricular systolic function is normal and the ejection fraction is within normal range. Th e Ejection Fraction is 50-55%. There is normal LV segmental wall motion. Doppler and Color Flow revealed trace tricuspid regurgitation with an estimated PAP of 41 mmHg. There is mild pulmonary hypertension. Doppler and Color Flow revealed mild pulmonic valvular regurgitation. Signed by : Thuan Lantigua, Electronically Approved : 07/11/2018 12:29:46
--- NOTE | 2018-07-11 13:01 | EEG ---
DATE OF SERVICE: 07/11/2018 ATTENDING PHYSICIAN: Dr. Ary Gao. DESCRIPTION: This is a digital study. Electrodes are placed according to the international 10-20 system. Bipolar and referential montages are available. Activation procedures typically include hyperventilation and intermittent photic stimulation. INTERPRETATION: The waking background consists of 9-10 Hz, 50-100 microvolt activity, symmetrically distributed over parietooccipital regions and reactive to eye opening. Stage 1 sleep is achieved with normal electroencephalogram patterns. Hyperventilation and intermittent photic stimulation are noncontributory. Computer -- identified abnormalities are reviewed and none are clinically relevant. IMPRESSION: This electroencephalogram with the patient awake and asleep is within normal limits. There is no focal, paroxysmal, or epileptiform activity. Thank you for letting us help with the patient's care. ZENY SZYMANSKI MD DR: MICKIE/yossi JOB#: [id number] / [id number]
--- NOTE | 2018-07-11 15:31 | RAD ---
MRI of the brain without contrast 07/11/2018 Clinical History: Confusion. Aphasia. Technique: Unenhanced T1-weighted sagittal and axial, T2-weighted axial and coronal and FLAIR, gradient echo and diffusion-weighted axial images of the brain were obtained. Findings: Comparison is made to patient's CT scan of the head dated 07/10/2018. There is generalized parenchymal atrophy. Patchy, confluent and multiple small focal areas of increased signal intensity are seen within the periventricular and subcortical white matter of both cerebral hemispheres on the FLAIR and T2-weighted images consistent with areas of small vessel ischemic disease. No acute parenchymal abnormality is seen. No extra-axial fluid collection is seen. There is no MRI evidence of acute ischemia/infarction. Mild mucosal thickening in seen scattered throughout the paranasal sinuses. There is a minimal right mastoid effusion. A small left mastoid effusion is seen. 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 Impression: No acute parenchymal abnormality is seen. Electronically signed by: Charanjit Walsh MD (07/11/2018 3:28 PM) [id number]
--- NOTE | 2018-07-11 17:45 | RAD ---
Carotid ultrasound, 07/11/2018: HISTORY: Aphasia, confusion Duplex evaluation of the carotid arteries and neck was performed including grayscale, color-flow and spectral Doppler analysis. There is extensive calcific plaquing in the common carotid arteries and at both carotid bifurcations. The underlying lumen at both carotid bifurcations is poorly defined. On the left, the peak systolic velocity in the internal carotid artery is 270 with an end diastolic velocity of 91 cm/s. The peak systolic velocity measurements suggests greater than 70 percent diameter narrowing at the origin of the internal carotid artery, however, the internal carotid to common carotid artery ratio 1.3 suggests a lesser degree of narrowing. On the right, there is an abnormal weak Doppler waveform arising from the common carotid artery with a peak systolic velocity of 18 cm/s. The bifurcation lumen cannot be visualized. A vessel thought to be the right internal carotid artery demonstrated a peak systolic velocity of 32 cm/s. Antegrade flow is present in both vertebral arteries in the neck. IMPRESSION: 1. Extensive calcific plaquing at the carotid bifurcations obscuring the underlying lumen on both sides. 2. There is a suggestion of moderate to severe stenosis at the origin of the left internal carotid artery. 3. Abnormal low velocities in the right common carotid artery raising the possibility of proximal stenotic disease. 4. Inadequate evaluation of the right carotid bifurcation. 5. CT angiography is suggested for further evaluation, if clinically indicated. PQRS Compliance Statement: One or more of the following individualized dose reduction techniques were utilized for this examination: 1. Automated exposure control 2. Adjustment of the mA and/or kV according to patient size 3. Use of iterative reconstruction technique Electronically signed by: Sachin Bautista MD (07/11/2018 5:42 PM) [facility]
[2018-07-11 19:00] VITALS: BP 137/53
--- NOTE | 2018-07-11 19:25 | NUR ---
Pt in bed assessment completed vss poc explained pt denies pain at this time. Pt call light in reach pt reminded to call for assistance will resume care and continue to monitor pt.
[2018-07-11] MEDS: ATORVASTATIN CALCIUM 40 MG TABLET. PO SCH (20:48)
[2018-07-11 23:01] VITALS: BP 127/54
[2018-07-11] MEDS: ALPRAZolam 0.5 MG TABLET PO PRN (23:05)
[2018-07-11] MEDS: ALBUTEROL SULFATE 2.5 MG/3 ML NEBU. INH PRN (23:12)
[2018-07-12 03:15] VITALS: BP 127/39
[2018-07-12 05:23] LABS: CHOLESTEROL/HDL RATIO 1.9
[2018-07-12] MEDS: LEVOTHYROXINE 75 MCG TABLET PO SCH (06:15)
[2018-07-12] MEDS: PANTOPRAZOLE 40 MG TABLET.DR. PO SCH (06:15)
[2018-07-12 07:20] VITALS: BP 137/60
[2018-07-12] MEDS: ALBUTEROL SULFATE 2.5 MG/3 ML NEBU. INH PRN ×2 (08:04→13:21)
[2018-07-12] MEDS: CHOLECALCIFEROL (VITAMIN D3) 1,000 UNIT TABLET PO SCH (10:09)
[2018-07-12] MEDS: PYRIDOXINE 50 MG TABLET. PO SCH (10:12)
[2018-07-12] MEDS: APIXABAN 5 MG TABLET. PO SCH ×2 (10:12→21:22)
[2018-07-12] MEDS: MULTIVITAMIN with MINERAL TABLET. PO SCH (10:13)
[2018-07-12] MEDS: ISOSORBIDE MONONITRATE ER 30 MG TAB.ER.24H PO SCH (10:13)
[2018-07-12] MEDS: CALCIUM CARBONATE 500 MG TABLET PO SCH ×3 (10:13→18:10)
[2018-07-12] MEDS: ASPIRIN CHEWABLE 81 MG TABLET. PO SCH (10:14)
[2018-07-12] MEDS: OMEGA-3 FATTY ACIDS/FISH OIL 1,000 MG CAPSULE. PO SCH (10:14)
[2018-07-12] MEDS: FUROSEMIDE 20 MG TABLET PO SCH (10:14)
[2018-07-12] MEDS: METOPROLOL SUCC 24HR ER 25 MG TAB.ER.24H. PO SCH (10:15)
[2018-07-12] MEDS: LISINOPRIL 10 MG TABLET PO SCH (10:15)
[2018-07-12] MEDS: ANORO ELLIPTA INHALATION INH SCH (10:18)
[2018-07-12 10:28] VITALS: BP 142/56
--- NOTE | 2018-07-12 11:34 | PDOC ---
PROGRESS NOTES Chief Complaint Chief Complaint Speech Difficulty Confusion CVA? Memory loss- Dementia? COPD FH of CAD Former smoker History of Present Illness History of Present Illness Ms Jimenez is a 73 yo F who was admitted for confusion/difficulty speaking, PMH COPD and former smoker She was seen and examined in her room this morning, NAD She was resting comfortably, sitting on chair at bedside She reported feeling frustration about not being able to form her words well Discussed MRI, echo, carotid doppler and EEG results with pt Discussed with RN Vitals Vitals Vital Signs Date Time Temp Pulse Resp B/P (MAP) Pulse Ox O2 Delivery O2 Flow Rate FiO2 07/12/18 10:28 97.5 61 20 142/56 (84) 97 Nasal Cannula 2.0 97.5 Physical Exam General: Alert, Cooperative, No acute distress Heart: No murmurs, Other (prominent L sided carotid bruit) Lungs: Clear Abdomen: Normal bowel sounds, Soft Extremities: No clubbing, No edema Skin: No rashes, No breakdown, No significant lesion Labs LABS Laboratory Tests Test 07/12/18 03:00 Erythrocyte Sedimentation Rate 12 (0-25) Triglycerides Level 63 mg/dL (0-150) Cholesterol Level 130 mg/dL (0-200) LDL Cholesterol, Calculated 47 mg/dL (0-100) VLDL Cholesterol, Calculated 13 mg/dL (0-40) Non-HDL Cholesterol Calculated 60 mg/dL (0-129) HDL Cholesterol 70 mg/dL (40-60) Cholesterol/HDL Ratio 1.9 Thyroid Stimulating Hormone (TSH) 6.417 uIU/mL (0.358-3.74) Review of Systems Review of Systems Pt reports confusion, aphasia, mild weakness Denies CP, SOB, n/v/d Assessment and Plan Assessmemt and Plan Assessmemt and Plan Speech Difficulty Confusion Evidence of carotid stenosis B/L CVA? Memory loss- Dementia? COPD FH of CAD Former smoker Plan Carotid doppler- moderate-severe Left ICA stenosis, and low velocity in R common carotid (proximal obstruction?) Recommend CTA to further evaluate carotid doppler findings Vascular surgery consulted Appreciate further subspecialty recs MRI, EEG and echo grossly normal PT/OT speech therapy home meds routine labs DVT prophylaxis SNU evaluation D/C dispo pending- likely SNU will be needed Comment Review of Relevant I have reviewed the following items vidal (where applicable) has been applied. Labs Laboratory Tests Test 07/10/18 12:29 07/10/18 13:20 07/10/18 13:25 07/10/18 14:06 Glucose (Fingerstick) 77 mg/dL (70-99) White Blood Count 7.1 x10^3/uL (4.0-11.0) Red Blood Count 3.50 x10^6/uL (3.50-5.40) Hemoglobin 10.9 g/dL (12.0-15.5) Hematocrit 32.8 % (36.0-47.0) Mean Corpuscular Volume 94 fL (79-100) Mean Corpuscular Hemoglobin 31 pg (25-35) Mean Corpuscular Hemoglobin Concent 33 g/dL (31-37) Red Cell Distribution Width 15.0 % (11.5-14.5) Platelet Count 286 x10^3/uL (140-400) Neutrophils (%) (Auto) 56 % (31-73) Lymphocytes (%) (Auto) 30 % (24-48) Monocytes (%) (Auto) 7 % (0-9) Eosinophils (%) (Auto) 6 % (0-3) Basophils (%) (Auto) 1 % (0-3) Neutrophils # (Auto) 3.9 x10^3uL (1.8-7.7) Lymphocytes # (Auto) 2.1 x10^3/uL (1.0-4.8) Monocytes # (Auto) 0.5 x10^3/uL (0.0-1.1) Eosinophils # (Auto) 0.4 x10^3/uL (0.0-0.7) Basophils # (Auto) 0.1 x10^3/uL (0.0-0.2) Prothrombin Time 15.8 SEC (11.7-14.0) Prothromb Time International Ratio 1.3 (0.8-1.1) Activated Partial Thromboplast Time 44 SEC (24-38) Sodium Level 146 mmol/L (136-145) Potassium Level 3.5 mmol/L (3.5-5.1) Chloride Level 106 mmol/L (98-107) Carbon Dioxide Level 28 mmol/L (21-32) Anion Gap 12 (6-14) Blood Urea Nitrogen 12 mg/dL (7-20) Creatinine 0.8 mg/dL (0.6-1.0) Estimated GFR (Cockcroft-Gault) 70.3 BUN/Creatinine Ratio 15 (6-20) Glucose Level 92 mg/dL (70-99) Calcium Level 8.6 mg/dL (8.5-10.1) Total Bilirubin 0.5 mg/dL (0.2-1.0) Aspartate Amino Transf (AST/SGOT) 27 U/L (15-37) Alanine Aminotransferase (ALT/SGPT) 23 U/L (14-59) Alkaline Phosphatase 81 U/L (46-116) Troponin I Quantitative 0.021 ng/mL (0.000-0.055) UJ-Pdl-I-Type Natriuretic Peptide 631 pg/mL (0-124) Total Protein 6.1 g/dL (6.4-8.2) Albumin 3.4 g/dL (3.4-5.0) Albumin/Globulin Ratio 1.3 (1.0-1.7) Lipase 105 U/L (73-393) O2 Saturation 97 % (92-99) Arterial Blood pH 7.59 (7.35-7.45) Arterial Blood pCO2 at Patient Temp 24 mmHg (35-46) Arterial Blood pO2 at Patient Temp 90 mmHg (65-108) Arterial Blood HCO3 22 mmol/L (21-28) Arterial Blood Base Excess 2 mmol/L (-3-3) FiO2 28 Urine Collection Type U cath Urine Color Yellow Urine Clarity Clear Urine pH 8.5 Urine Specific [place] 1.010 Urine Protein Negative mg/dL (NEG-TRACE) Urine Glucose (UA) Negative mg/dL (NEG) Urine Ketones (Stick) Negative mg/dL (NEG) Urine Blood Negative (NEG) Urine Nitrite Negative (NEG) Urine Bilirubin Negative (NEG) Urine Urobilinogen Dipstick 0.2 mg/dL (0.2 mg/dL) Urine Leukocyte Esterase Negative (NEG) Urine RBC 0 /HPF (0-2) Urine WBC 0 /HPF (0-4) Urine Squamous Epithelial Cells Few /LPF Urine Amorphous Sediment Present /HPF Urine Bacteria 0 /HPF (0-FEW) Urine Hyaline Casts Occasional /HPF Urine Mucus Slight /LPF Test 07/10/18 17:13 07/12/18 03:00 Nasal Screen MRSA (PCR) Negative (Negative) Erythrocyte Sedimentation Rate 12 (0-25) Triglycerides Level 63 mg/dL (0-150) Cholesterol Level 130 mg/dL (0-200) LDL Cholesterol, Calculated 47 mg/dL (0-100) VLDL Cholesterol, Calculated 13 mg/dL (0-40) Non-HDL Cholesterol Calculated 60 mg/dL (0-129) HDL Cholesterol 70 mg/dL (40-60) Cholesterol/HDL Ratio 1.9 Thyroid Stimulating Hormone (TSH) 6.417 uIU/mL (0.358-3.74) Laboratory Tests Test 07/12/18 03:00 Erythrocyte Sedimentation Rate 12 (0-25) Triglycerides Level 63 mg/dL (0-150) Cholesterol Level 130 mg/dL (0-200) LDL Cholesterol, Calculated 47 mg/dL (0-100) VLDL Cholesterol, Calculated 13 mg/dL (0-40) Non-HDL Cholesterol Calculated 60 mg/dL (0-129) HDL Cholesterol 70 mg/dL (40-60) Cholesterol/HDL Ratio 1.9 Thyroid Stimulating Hormone (TSH) 6.417 uIU/mL (0.358-3.74) Medications Current Medications Aspirin (Children'S Aspirin) 324 mg 1X ONCE PO Last administered on 07/10/18 16:36; Start 07/10/18 at 15:45; Stop 07/10/18 at 16:30; Status DC Albuterol Sulfate (Ventolin Neb Soln) 2.5 mg PRN Q6HRS PRN INH SHORTNESS OF BREATH Last administered on 07/12/18 08:04; Start 07/10/18 at 19:00 Alprazolam (Xanax) 0.75 mg PRN DAILY PRN PO ANXIETY / AGITATION Last administered on 07/11/18 23:05; Start 07/10/18 at 19:00 Apixaban (Eliquis) 5 mg BID PO Last administered on 07/12/18 10:12; Start at 21:00 Aspirin (Children'S Aspirin) 81 mg DAILY PO Last administered on 07/12/18 10:14 ; Start 07/11/18 at 09:00 Atorvastatin Calcium (Lipitor) 40 mg QHS PO Last administered on 07/11/18 20:48 ; Start 07/10/18 at 21:00 Furosemide (Lasix) 10 mg DAILY PO Last administered on 07/12/18 10:14; Start at 09:00 Isosorbide Mononitrate (Imdur) 30 mg DAILY PO Last administered on 07/12/18 10: 13; Start 07/11/18 at 09:00 Levothyroxine Sodium (Synthroid) 75 mcg DAILY07 PO Last administered on 06:15; Start 07/11/18 at 07:00 Lisinopril (Prinivil) 10 mg DAILY PO Last administered on 07/12/18 10:15; Start 07/11/18 at 09:00 Metoprolol Succinate (Toprol Xl) 25 mg DAILY PO Last administered on 07/12/18 10:15; Start 07/11/18 at 09:00 Nitroglycerin (Nitrostat) 0.4 mg PRN Q5MIN PRN SL CHEST PAIN; Start 07/10/18 at 19:00 Triamcinolone Acetonide (Kenalog) 1 mayank PRN BID PRN TP RASH; Start 07/10/18 at 19:00 Non-Formulary Medication (Alendronate Sodium (Fosamax)) 1 tab WEEKLY PO ; Start 07/17/18 at 09:00; Status UNV Calcium Carbonate/ Glycine (Oscal) 1,000 mg TIDAFTMEAL PO Last administered on 07/12/18 10:13; Start 07/11/18 at 09:00 Vitamin D (Vitamin D3) 2,000 unit DAILY PO Last administered on 07/12/18 10:09 ; Start 07/11/18 at 09:00 Diltiazem HCl (Cardizem 24hr Cd) 120 mg DAILY PO Last administered on 07/12/18 10:14; Start 07/11/18 at 09:00 Guaifenesin (Robitussin) 400 mg PRN BID PRN PO COUGH; Start 07/10/18 at 19:15 Memantine (Namenda) 10 mg DAILY PO ; Start 07/11/18 at 09:00; Stop 07/11/18 at 12: 59; Status DC Multivitamins (Thera M Plus) 1 tab DAILY PO Last administered on 07/12/18 10:13 ; Start 07/11/18 at 09:00 Fish Oil (Fish Oil) 1,000 mg DAILY PO Last administered on 07/12/18 10:14; Start 07/11/18 at 09:00 Pantoprazole Sodium (Protonix) 40 mg DAILYAC PO Last administered on 07/12/18at 06:15; Start 07/11/18 at 07:30 Non-Formulary Medication (Potassium Chloride ) 99 mg DAILY PO ; Start 07/11/18 at 09:00; Status UNV Pyridoxine HCl (Vitamin B-6) 200 mg DAILY PO Last administered on 07/12/18at 10: 12; Start 07/11/18 at 09:00 Non-Formulary Medication (Ubidecarenone (Coenzyme Q10)) 10 mg DAILY PO ; Start 07/11/18 at 09:00; Status UNV Non-Formulary Medication 1 ea DAILY INH Last administered on 07/12/18at 10:18; Start 07/11/18 at 09:00 Info (Anti-Coagulation Monitoring By Pharmacy) 1 each PRN DAILY PRN MC SEE COMMENTS Last administered on 07/11/18at 10:48; Start 07/11/18 at 07:45 Acetaminophen (Tylenol) 650 mg PRN Q6HRS PRN PO TEMP > 100.4F; Start 07/11/18 at 08:45 Acetaminophen (Tylenol Supp) 650 mg PRN Q4HRS PRN WA TEMP > 100.4F; Start at 08:45 Memantine (Namenda) 10 mg QHS PO Last administered on 07/11/18at 20:48; Start 07/11/18 at 21:00 Active Scripts Active Reported Anoro Ellipta 62.5-25 Mcg Inh (Umeclidinium Brm/Vilanterol Tr) 1 Each Disk.w.dev 1 Each IH DAILY Triamcinolone Acetonide 0.1% Oint (Triamcinolone Acetonide) 15 Gm Oint...g. 1 Mayank TP PRN BID MIX WITH EUCERIN DIRECTED BY PHYSICIAN Synthroid (Levothyroxine Sodium) 75 Mcg Tablet 1 Tab PO DAILY B-6 (Pyridoxine HCl (Vitamin B6)) 200 Mg Tablet.er 200 Mg PO DAILY Proair Hfa Inhaler (Albuterol Sulfate) 8.5 Gm Hfa.aer.ad 2 Puff INH PRN Q6HRS PRN Potassium Chloride 20 Meq Tablet.er 99 Mg PO DAILY Protonix (Pantoprazole Sodium) 20 Mg Tablet.dr 40 Mg PO DAILY Fish Oil 1,000 mg Softgel ([place]-3/Dha/Epa/Fish Oil) 1,000 Mg Capsule 1,000 Mg PO DAILY NITROGLYCERIN SubLingual (Nitroglycerin) 0.4 Mg Tab.subl 0.4 Mg SL PRN Q5MIN PRN Multivitamins (Multivitamin) 1 Each Tablet 1 Tab PO DAILY Metoprolol Succinate ( Xl ) (Metoprolol Succinate) 25 Mg Tab.er.24h 25 Mg PO DAILY Namenda (Memantine Hcl) 10 Mg Tablet 10 Mg PO DAILY Lisinopril 10 Mg Tablet 10 Mg PO DAILY Isosorbide Mononitrate Er (Isosorbide Mononitrate) 30 Mg Tab.er.24h 30 Mg PO DAILY Guaifenesin 400 Mg Tablet 400 Mg PO PRN BID Lasix (Furosemide) 20 Mg Tablet 10 Mg PO DAILY Eliquis (Apixaban) 5 Mg Tablet 5 Mg PO BID Cardizem Cd (Diltiazem Hcl) 180 Mg Cap.er.24h 120 Mg PO DAILY Coenzyme Q10 (Ubidecarenone) 10 Mg Capsule 10 Mg PO DAILY Vitamin D (Cholecalciferol (Vitamin D3)) 2,000 Unit Capsule 1 Cap PO DAILY Calcium Carbonate 600 Mg Tablet 1,200 Mg PO TID Lipitor (Atorvastatin Calcium) 40 Mg Tablet 1 Tab PO QHS Aspirin 81 Mg Tab.chew 1 Tab PO DAILY Xanax (Alprazolam) 0.5 Mg Tablet 0.75 Mg PO PRN DAILY PRN Fosamax (Alendronate Sodium) 70 Mg Tablet 1 Tab PO WEEKLY Proair Hfa Inhaler (Albuterol Sulfate) 8.5 Gm Hfa.aer.ad 1 Puff INH PRN Q6HRS PRN Vitals/I & O Vital Sign - Last 24 Hours 07/11/18 07/11/18 07/11/18 07/11/18 19:00 19:25 23:01 23:16 Temp 98.1 97.8 98.1 97.8 Pulse 70 54 Resp 18 16 B/P (MAP) 137/53 (81) 127/54 (78) Pulse Ox 96 97 O2 Delivery Room Air Room Air Nasal Cannula Nasal Cannula O2 Flow Rate 2.0 2.0 07/12/18 07/12/18 07/12/18 07/12/18 03:15 07:20 08:00 08:05 Temp 98.0 97.6 98.0 97.6 Pulse 57 56 Resp 16 20 B/P (MAP) 127/39 (68) 137/60 (85) Pulse Ox 100 99 98 O2 Delivery Nasal Cannula Nasal Cannula Nasal Cannula Room Air O2 Flow Rate 2.0 2.0 2.0 07/12/18 07/12/18 07/12/18 07/12/18 10:13 10:14 10:15 10:15 Pulse 56 56 56 56 B/P (MAP) 137/60 137/60 137/60 137/60 07/12/18 10:28 Temp 97.5 97.5 Pulse 61 Resp 20 B/P (MAP) 142/56 (84) Pulse Ox 97 O2 Delivery Nasal Cannula O2 Flow Rate 2.0 Intake and Output 07/11/18 07/11/18 07/12/18 15:00 23:00 07:00 Intake Total 420 ml 340 ml 435 ml Balance 420 ml 340 ml 435 ml Nutrition Consultation Dietary Evaluation: Recommendations by RD: Protein supplementation Comments: Continue w/regular diet as ordered to promote continued good PO intake Will add Ensure BID (strawberry) Expected Outcomes/Goals: PO intake to meet >75% est needs Malnutrition Findings: Body Fat Depletion (Non Severe: Mild Depletion Weight Status: Appropriate LIZ CASTILLO III DO Jul 12, 2018 11:34
[2018-07-12 15:15] VITALS: BP 104/39
[2018-07-12] MEDS: MAGNESIUM HYDROXIDE 2,400 MG/30 ML ORAL.SUSP. PO PRN (15:31)
--- NOTE | 2018-07-12 17:20 | PDOC ---
PROGRESS NOTES Assessment Chronic dementia, most likely a frontotemporal type given the language difficulties. Note elevated TSH Carotid artery stenosis, bilaterally Pulmonary hypertension and pulmonic valve regurgitation. She is on Eliquis and aspirin already Plan CT angiogram, discussed risks Increase Synthroid dose Cardiac consultation regarding the pulmonary hypertension and pulmonic valve regurgitation She needs placement. Vascular surgery is consulted I doubt that she is a good candidate for surgery given her dementia but it is important to make an informed decision and that is why I ordered a CT angiogram. I reviewed the medicine list from Dr. Gonsalez Subjective No complaints Objective Vital Signs Date Time Temp Pulse Resp B/P (MAP) Pulse Ox O2 Delivery O2 Flow Rate FiO2 07/12/18 15:15 97.8 69 20 104/39 (60) 98 Nasal Cannula 2.0 97.8 Intake and Output 07/12/18 07:00 Intake Total 1195 ml Balance 1195 ml Intake Oral 1195 ml # Voids 5 PHYSICAL EXAM Alert. Speech is very tangential, really not a lot of meaning to her speech, but she names and repeats and she knows that she is in the hospital. PERRL. EOMI. CN: Eyes blind, otherwise no acute focal findings. Muscle tone: normal. Muscle strength: 5/5 DTR: 2+ Plantar reflex: Flexor Gait: not examined in bed. Sensory exam: no abnormal findings. No cerebellar signs elicited. Review of Relevant I have reviewed the following items vidal (where applicable) has been applied. Labs Laboratory Tests Test 07/10/18 17:13 07/12/18 03:00 Nasal Screen MRSA (PCR) Negative (Negative) Erythrocyte Sedimentation Rate 12 (0-25) Triglycerides Level 63 mg/dL (0-150) Cholesterol Level 130 mg/dL (0-200) LDL Cholesterol, Calculated 47 mg/dL (0-100) VLDL Cholesterol, Calculated 13 mg/dL (0-40) Non-HDL Cholesterol Calculated 60 mg/dL (0-129) HDL Cholesterol 70 mg/dL (40-60) Cholesterol/HDL Ratio 1.9 Thyroid Stimulating Hormone (TSH) 6.417 uIU/mL (0.358-3.74) Laboratory Tests Test 07/12/18 03:00 Erythrocyte Sedimentation Rate 12 (0-25) Triglycerides Level 63 mg/dL (0-150) Cholesterol Level 130 mg/dL (0-200) LDL Cholesterol, Calculated 47 mg/dL (0-100) VLDL Cholesterol, Calculated 13 mg/dL (0-40) Non-HDL Cholesterol Calculated 60 mg/dL (0-129) HDL Cholesterol 70 mg/dL (40-60) Cholesterol/HDL Ratio 1.9 Thyroid Stimulating Hormone (TSH) 6.417 uIU/mL (0.358-3.74) Medications Current Medications Aspirin (Children'S Aspirin) 324 mg 1X ONCE PO Last administered on 07/10/18 16:36; Start 07/10/18 at 15:45; Stop 07/10/18 at 16:30; Status DC Albuterol Sulfate (Ventolin Neb Soln) 2.5 mg PRN Q6HRS PRN INH SHORTNESS OF BREATH Last administered on 07/12/18 13:21; Start 07/10/18 at 19:00 Alprazolam (Xanax) 0.75 mg PRN DAILY PRN PO ANXIETY / AGITATION Last administered on 07/11/18 23:05; Start 07/10/18 at 19:00 Apixaban (Eliquis) 5 mg BID PO Last administered on 07/12/18 10:12; Start at 21:00 Aspirin (Children'S Aspirin) 81 mg DAILY PO Last administered on 07/12/18 10:14 ; Start 07/11/18 at 09:00 Atorvastatin Calcium (Lipitor) 40 mg QHS PO Last administered on 07/11/18 20:48 ; Start 07/10/18 at 21:00 Furosemide (Lasix) 10 mg DAILY PO Last administered on 07/12/18 10:14; Start at 09:00 Isosorbide Mononitrate (Imdur) 30 mg DAILY PO Last administered on 07/12/18 10: 13; Start 07/11/18 at 09:00 Levothyroxine Sodium (Synthroid) 75 mcg DAILY07 PO Last administered on 06:15; Start 07/11/18 at 07:00 Lisinopril (Prinivil) 10 mg DAILY PO Last administered on 07/12/18 10:15; Start 07/11/18 at 09:00 Metoprolol Succinate (Toprol Xl) 25 mg DAILY PO Last administered on 07/12/18 10:15; Start 07/11/18 at 09:00 Nitroglycerin (Nitrostat) 0.4 mg PRN Q5MIN PRN SL CHEST PAIN; Start 07/10/18 at 19:00 Triamcinolone Acetonide (Kenalog) 1 mayank PRN BID PRN TP RASH; Start 07/10/18 at 19:00 Non-Formulary Medication (Alendronate Sodium (Fosamax)) 1 tab WEEKLY PO ; Start 07/17/18 at 09:00; Status UNV Calcium Carbonate/ Glycine (Oscal) 1,000 mg TIDAFTMEAL PO Last administered on 07/12/18 14:11; Start 07/11/18 at 09:00 Vitamin D (Vitamin D3) 2,000 unit DAILY PO Last administered on 07/12/18 10:09 ; Start 07/11/18 at 09:00 Diltiazem HCl (Cardizem 24hr Cd) 120 mg DAILY PO Last administered on 07/12/18at 10:14; Start 07/11/18 at 09:00 Guaifenesin (Robitussin) 400 mg PRN BID PRN PO COUGH; Start 07/10/18 at 19:15 Memantine (Namenda) 10 mg DAILY PO ; Start 07/11/18 at 09:00; Stop 07/11/18 at 12: 59; Status DC Multivitamins (Thera M Plus) 1 tab DAILY PO Last administered on 07/12/18at 10:13 ; Start 07/11/18 at 09:00 Fish Oil (Fish Oil) 1,000 mg DAILY PO Last administered on 07/12/18at 10:14; Start 07/11/18 at 09:00 Pantoprazole Sodium (Protonix) 40 mg DAILYAC PO Last administered on 07/12/18at 06:15; Start 07/11/18 at 07:30 Non-Formulary Medication (Potassium Chloride ) 99 mg DAILY PO ; Start 07/11/18 at 09:00; Status UNV Pyridoxine HCl (Vitamin B-6) 200 mg DAILY PO Last administered on 07/12/18at 10: 12; Start 07/11/18 at 09:00 Non-Formulary Medication (Ubidecarenone (Coenzyme Q10)) 10 mg DAILY PO ; Start 07/11/18 at 09:00; Status UNV Non-Formulary Medication 1 ea DAILY INH Last administered on 07/12/18 10:18; Start 07/11/18 at 09:00 Info (Anti-Coagulation Monitoring By Pharmacy) 1 each PRN DAILY PRN MC SEE COMMENTS Last administered on 07/11/18at 10:48; Start 07/11/18 at 07:45 Acetaminophen (Tylenol) 650 mg PRN Q6HRS PRN PO TEMP > 100.4F; Start 07/11/18 at 08:45 Acetaminophen (Tylenol Supp) 650 mg PRN Q4HRS PRN WA TEMP > 100.4F; Start at 08:45 Memantine (Namenda) 10 mg QHS PO Last administered on 07/11/18 20:48; Start 07/11/18 at 21:00 Magnesium Hydroxide (Milk Of Magnesia) 2,400 mg PRN DAILY PRN PO CONSTIPATION Last administered on 07/12/18 15:31; Start 07/12/18 at 14:15 Albuterol Sulfate (Ventolin Neb Soln) 2.5 mg RTQID NEB ; Start 07/12/18 at 20:00 Active Scripts Active Reported Anoro Ellipta 62.5-25 Mcg Inh (Umeclidinium Brm/Vilanterol Tr) 1 Each Disk.w.dev 1 Each IH DAILY Triamcinolone Acetonide 0.1% Oint (Triamcinolone Acetonide) 15 Gm Oint...g. 1 Mayank TP PRN BID MIX WITH EUCERIN DIRECTED BY PHYSICIAN Synthroid (Levothyroxine Sodium) 75 Mcg Tablet 1 Tab PO DAILY B-6 (Pyridoxine HCl (Vitamin B6)) 200 Mg Tablet.er 200 Mg PO DAILY Proair Hfa Inhaler (Albuterol Sulfate) 8.5 Gm Hfa.aer.ad 2 Puff INH PRN Q6HRS PRN Potassium Chloride 20 Meq Tablet.er 99 Mg PO DAILY Protonix (Pantoprazole Sodium) 20 Mg Tablet.dr 40 Mg PO DAILY Fish Oil 1,000 mg Softgel ([place]-3/Dha/Epa/Fish Oil) 1,000 Mg Capsule 1,000 Mg PO DAILY NITROGLYCERIN SubLingual (Nitroglycerin) 0.4 Mg Tab.subl 0.4 Mg SL PRN Q5MIN PRN Multivitamins (Multivitamin) 1 Each Tablet 1 Tab PO DAILY Metoprolol Succinate ( Xl ) (Metoprolol Succinate) 25 Mg Tab.er.24h 25 Mg PO DAILY Namenda (Memantine Hcl) 10 Mg Tablet 10 Mg PO DAILY Lisinopril 10 Mg Tablet 10 Mg PO DAILY Isosorbide Mononitrate Er (Isosorbide Mononitrate) 30 Mg Tab.er.24h 30 Mg PO DAILY Guaifenesin 400 Mg Tablet 400 Mg PO PRN BID Lasix (Furosemide) 20 Mg Tablet 10 Mg PO DAILY Eliquis (Apixaban) 5 Mg Tablet 5 Mg PO BID Cardizem Cd (Diltiazem Hcl) 180 Mg Cap.er.24h 120 Mg PO DAILY Coenzyme Q10 (Ubidecarenone) 10 Mg Capsule 10 Mg PO DAILY Vitamin D (Cholecalciferol (Vitamin D3)) 2,000 Unit Capsule 1 Cap PO DAILY Calcium Carbonate 600 Mg Tablet 1,200 Mg PO TID Lipitor (Atorvastatin Calcium) 40 Mg Tablet 1 Tab PO QHS Aspirin 81 Mg Tab.chew 1 Tab PO DAILY Xanax (Alprazolam) 0.5 Mg Tablet 0.75 Mg PO PRN DAILY PRN Fosamax (Alendronate Sodium) 70 Mg Tablet 1 Tab PO WEEKLY Proair Hfa Inhaler (Albuterol Sulfate) 8.5 Gm Hfa.aer.ad 1 Puff INH PRN Q6HRS PRN Vitals/I & O Vital Sign - Last 24 Hours 07/11/18 07/11/18 07/11/18 07/11/18 19:00 19:25 23:01 23:16 Temp 98.1 97.8 98.1 97.8 Pulse 70 54 Resp 18 16 B/P (MAP) 137/53 (81) 127/54 (78) Pulse Ox 96 97 O2 Delivery Room Air Room Air Nasal Cannula Nasal Cannula O2 Flow Rate 2.0 2.0 07/12/18 07/12/18 07/12/18 07/12/18 03:15 07:20 08:00 08:05 Temp 98.0 97.6 98.0 97.6 Pulse 57 56 Resp 16 20 B/P (MAP) 127/39 (68) 137/60 (85) Pulse Ox 100 99 98 O2 Delivery Nasal Cannula Nasal Cannula Nasal Cannula Room Air O2 Flow Rate 2.0 2.0 2.0 07/12/18 07/12/18 07/12/18 07/12/18 10:13 10:14 10:15 10:15 Pulse 56 56 56 56 B/P (MAP) 137/60 137/60 137/60 137/60 07/12/18 07/12/18 07/12/18 10:28 13:23 15:15 Temp 97.5 97.8 97.5 97.8 Pulse 61 69 Resp 20 20 B/P (MAP) 142/56 (84) 104/39 (60) Pulse Ox 97 98 O2 Delivery Nasal Cannula Room Air Nasal Cannula O2 Flow Rate 2.0 2.0 2.0 Intake and Output 07/11/18 07/11/18 07/12/18 15:00 23:00 07:00 Intake Total 420 ml 340 ml 435 ml Balance 420 ml 340 ml 435 ml Images EEG was normal MRI of the brain without contrast 07/11/2018 There is generalized parenchymal atrophy. Patchy, confluent and multiple small focal areas of increased signal intensity are seen within the periventricular and subcortical white matter of both cerebral hemispheres on the FLAIR and T2-weighted images consistent with areas of small vessel ischemic disease. No acute parenchymal abnormality is seen. No extra-axial fluid collection is seen. There is no MRI evidence of acute ischemia/infarction. Mild mucosal thickening in seen scattered throughout the paranasal sinuses. There is a minimal right mastoid effusion. A small left mastoid effusion is seen. 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 Impression: No acute parenchymal abnormality is seen. Carotids: Duplex evaluation of the carotid arteries and neck was performed including grayscale, color-flow and spectral Doppler analysis. There is extensive calcific plaquing in the common carotid arteries and at both carotid bifurcations. The underlying lumen at both carotid bifurcations is poorly defined. On the left, the peak systolic velocity in the internal carotid artery is 270 with an end diastolic velocity of 91 cm/s. The peak systolic velocity measurements suggests greater than 70 percent diameter narrowing at the origin of the internal carotid artery, however, the internal carotid to common carotid artery ratio 1.3 suggests a lesser degree of narrowing. On the right, there is an abnormal weak Doppler waveform arising from the common carotid artery with a peak systolic velocity of 18 cm/s. The bifurcation lumen cannot be visualized. A vessel thought to be the right internal carotid artery demonstrated a peak systolic velocity of 32 cm/s. Antegrade flow is present in both vertebral arteries in the neck. IMPRESSION: 1. Extensive calcific plaquing at the carotid bifurcations obscuring the underlying lumen on both sides. 2. There is a suggestion of moderate to severe stenosis at the origin of the left internal carotid artery. 3. Abnormal low velocities in the right common carotid artery raising the possibility of proximal stenotic disease. 4. Inadequate evaluation of the right carotid bifurcation. 5. CT angiography is suggested for further evaluation, if clinically indicated. Echocardiogram: LEFT VENTRICLE The Left Ventricle is mildly dilated. There is mild concentric left ventricular hypertrophy. The left ventricular systolic function is normal and the ejection fraction is within normal range. The Ejection Fraction is 50-55%. There is normal LV segmental wall motion. Transmitral Doppler flow pattern is Grade II- pseudonormal filling dynamics. RIGHT VENTRICLE The right ventricle is normal size. There is normal right ventricular wall thickness. The right ventricular systolic function is normal. ATRIA The left atrium is mildly dilated. The right atrium size is normal. The interatrial septum is intact with no evidence for an atrial septal defect or patent foramen ovale as noted on 2-D or Doppler imaging. AORTIC VALVE The aortic valve is normal in structure and function. Doppler and Color Flow revealed trace aortic regurgitation. There is no significant aortic valvular stenosis. MITRAL VALVE The mitral valve is thickened but opens well. There is no evidence of mitral valve prolapse. There is no mitral valve stenosis. Doppler and Color Flow revealed no mitral valve regurgitation noted. TRICUSPID VALVE The tricuspid valve is normal in structure and function. Doppler and Color Flow revealed trace tricuspid regurgitation with an estimated PAP of 41 mmHg. There is mild pulmonary hypertension. There is no tricuspid valve stenosis. PULMONIC VALVE The pulmonic valve is not well visualized. Doppler and Color Flow revealed mild pulmonic valvular regurgitation. GREAT VESSELS The aortic root is normal in size. The IVC is dilated and collapses >50% with inspiration. PERICARDIAL EFFUSION There is no evidence of significant pericardial effusion. Critical Notification Critical Value: No <Conclusion> The left ventricular systolic function is normal and the ejection fraction is within normal range. The Ejection Fraction is 50-55%. There is normal LV segmental wall motion. Doppler and Color Flow revealed trace tricuspid regurgitation with an estimated PAP of 41 mmHg. There is mild pulmonary hypertension. Doppler and Color Flow revealed mild pulmonic valvular regurgitation. ZENY SZYMANSKI MD Jul 12, 2018 17:20
--- NOTE | 2018-07-12 17:45 | PDOC ---
Provider Note Provider Note Vascular consult dictated no clear cut cerebrovascular symptoms Carotid Duplex exam is abnormal, suggesting both proximal right TOBY and disease at the left carotid bifurcation I do not recommend any intervention based on the current studies CTA arch and carotids would be helpful to better delineate vascular anatomy JUMA ASHLEY MD Jul 12, 2018 17:45
[2018-07-12 19:30] VITALS: BP 142/46
[2018-07-12] MEDS: ALBUTEROL SULFATE 2.5 MG/3 ML NEBU. NEB SCH (19:49)
[2018-07-12] MEDS: ALPRAZolam 0.5 MG TABLET PO PRN (21:22)
[2018-07-12] MEDS: MEMANTINE 10 MG TABLET. PO SCH (21:23)
[2018-07-12] MEDS: ATORVASTATIN CALCIUM 40 MG TABLET. PO SCH (21:23)
[2018-07-12 22:59] VITALS: BP 135/51
[2018-07-13] VITALS (8 sets, daily range): BP systolic 122–179; BP diastolic 58–86
[2018-07-13 04:39] LABS: BASO # 0.1 x10^3/uL (0.0-0.2); BASO % 1 % (0-3); EOS # 0.6 x10^3/uL (0.0-0.7); EOS % 10 % (0-3); HEMOGLOBIN 10.3 g/dL (12.0-15.5); LYMPH # 1.8 x10^3/uL (1.0-4.8); LYMPH % 28 % (24-48); MEAN CORPUSCULAR HEMOGLOBIN 30 pg (25-35); MEAN CORPUSCULAR HGB CONC 32 g/dL (31-37); MEAN CORPUSCULAR VOLUME 94 fL (79-100); MONO # 0.6 x10^3/uL (0.0-1.1); MONO % 9 % (0-9); NEUT # 3.3 x10^3uL (1.8-7.7); NEUT % 53 % (31-73); PLATELET COUNT 261 x10^3/uL (140-400); RED CELL DISTRIBUTION WIDTH 14.7 % (11.5-14.5); WHITE BLOOD COUNT 6.4 x10^3/uL (4.0-11.0)
[2018-07-13 05:43] LABS: ALBUMIN 2.9 g/dL (3.4-5.0); ALBUMIN/GLOBULIN RATIO 0.9 (1.0-1.7); CALCIUM 8.6 mg/dL (8.5-10.1); CREATININE 0.8 mg/dL (0.6-1.0); GFR 70.3; TOTAL BILIRUBIN 0.3 mg/dL (0.2-1.0); TOTAL PROTEIN 6.1 g/dL (6.4-8.2)
[2018-07-13 05:50] LABS: POTASSIUM 4.4 mmol/L (3.5-5.1)
[2018-07-13] MEDS: PANTOPRAZOLE 40 MG TABLET.DR. PO SCH (06:23)
[2018-07-13] MEDS: LEVOTHYROXINE 100 MCG TABLET PO SCH (06:23)
[2018-07-13] MEDS ORDERED: CONTRAST GIVEN. MC PRN (07:15)
[2018-07-13] MEDS ORDERED: IOHEXOL 350 MG/ML 100 ML VIAL. IV ONE (07:15)
[2018-07-13] MEDS: ANORO ELLIPTA INHALATION INH SCH (08:33)
[2018-07-13] MEDS: OMEGA-3 FATTY ACIDS/FISH OIL 1,000 MG CAPSULE. PO SCH (08:34)
[2018-07-13] MEDS: APIXABAN 5 MG TABLET. PO SCH ×2 (08:34→21:43)
[2018-07-13] MEDS: ASPIRIN CHEWABLE 81 MG TABLET. PO SCH (08:34)
[2018-07-13] MEDS: MULTIVITAMIN with MINERAL TABLET. PO SCH (08:37)
[2018-07-13] MEDS: LISINOPRIL 10 MG TABLET PO SCH (08:37)
[2018-07-13] MEDS: ISOSORBIDE MONONITRATE ER 30 MG TAB.ER.24H PO SCH (08:37)
[2018-07-13] MEDS: FUROSEMIDE 20 MG TABLET PO SCH (08:37)
[2018-07-13] MEDS: CALCIUM CARBONATE 500 MG TABLET PO SCH ×3 (08:37→17:29)
[2018-07-13] MEDS: METOPROLOL SUCC 24HR ER 25 MG TAB.ER.24H. PO SCH (08:38)
[2018-07-13] MEDS: PYRIDOXINE 50 MG TABLET. PO SCH (08:38)
[2018-07-13] MEDS: CHOLECALCIFEROL (VITAMIN D3) 1,000 UNIT TABLET PO SCH (08:38)
--- NOTE | 2018-07-13 08:41 | RAD ---
CT arteriogram of the carotid arteries, CT arteriogram of the brain. HISTORY: Carotid stenosis on Doppler CT arteriogram the carotid arteries CT arteriogram was done to evaluate the carotid arteries using 75 mL Isovue-370 contrast. Sagittal and coronal MIP images were reconstructed, three-dimensional images were reconstructed. There are emphysematous changes in the upper lobes of the lungs. There is linear atelectasis or infiltrate in the anterior left upper lobe. There is focal infiltrate or 8mm nodule on image #3 CT of the chest could be of benefit for complete evaluation. There is atherosclerotic change at the aortic arch. There is plaque in the innominate artery without severe stenosis. There is hypodense plaque in the right common carotid artery without severe stenosis. There is echogenic plaque in the more distal right common carotid artery with mild narrowing. There is extensive calcified plaque at the carotid bifurcation on the right side. There is occlusion or 99 percent stenosis of the right internal carotid artery with a very small vessel distal to the bifurcation on the right side. Vessels best seen on the MIP reconstructions. There are 2 normal vertebral arteries both of which supply flow to the basilar artery. There is calcified plaque in the left common carotid artery with mild narrowing. There is moderate narrowing of the distal left common carotid artery. There is extensive calcified plaque at the left carotid bifurcation. There is severe stenosis greater than 70 percent at the left internal carotid artery origin. There is degenerative disc disease and facet arthritis in the cervical spine. IMPRESSION: 1. Normal size vertebral arteries. 2. Occlusion or severe 99 percent stenosis of the right internal carotid artery with slow flow. 3. Severe greater than 70 percent stenosis at the left carotid bifurcation. 4. Left upper lobe pulmonary nodule CT chest recommended. PQRS Compliance Statement - Stenosis calculations for CT, MR and conventional angiography are based upon measurement of the distal ICA diameter in accordance with the NASCET methodology. End impression CT arteriogram of the brain CT arteriogram of the brain was done following the CT arteriogram the carotid arteries using the same contrast. Sagittal and coronal MIP images were reconstructed. Three-dimensional images were reconstructed. There are normal distal vertebral arteries supply flow to the basilar artery. Basilar artery has a normal appearance. There are small posterior communicating arteries on each side. Posterior cerebral arteries are supplied by the basilar artery. There is a normal sized left internal carotid artery with mild plaque at the carotid siphon without severe stenosis. Left middle cerebral vessels appear normal. There is a normal left anterior cerebral artery. The internal carotid artery at the carotid siphon is a small vessel with decreased contrast enhancement. There is no major vessel occlusion of the right middle cerebral vessels. Major CVA is not identified. Intracranial veins are patent. IMPRESSION: 1. Normal vertebral and basilar arteries. 2. Mild plaque the carotid siphon on the left. 3. No major vessel occlusion noted intracranially. 4. The right internal carotid artery is a small vessel with decreased contrast enhancement from proximal severe stenosis or occlusion and reconstitution. Electronically signed by: Gerardo Dangelo MD (07/13/2018 8:38 AM) [facility]
[2018-07-13] MEDS: ALBUTEROL SULFATE 2.5 MG/3 ML NEBU. NEB SCH ×4 (09:03→20:50)
[2018-07-13] MEDS ORDERED: MAGNESIUM HYDROXIDE 2,400 MG/30 ML ORAL.SUSP. PO ONE (11:00)
--- NOTE | 2018-07-13 11:12 | PDOC ---
PROGRESS NOTES Chief Complaint Chief Complaint Speech Difficulty Confusion CVA? Memory loss- Dementia? COPD FH of CAD Former smoker History of Present Illness History of Present Illness Ms Jimenez is a 73 yo F who was admitted for confusion/difficulty speaking, PMH COPD and former smoker She was seen and examined in her room this morning, NAD She was resting comfortably, stood up during exam and spoke to us at length Her speech was much improved, with less expressive aphasia, completed thoughts better but still not completely She states that when her anxiety increases, her ability to express her thoughts decreases Discussed her medications, treatments, and her concerns at length She was very concerned about a ventral hernia, we reassured her at length Discussed with RN Vitals Vitals Vital Signs Date Time Temp Pulse Resp B/P (MAP) Pulse Ox O2 Delivery O2 Flow Rate FiO2 07/13/18 09:05 100 Nasal Cannula 2.0 07/13/18 08:38 63 156/61 07/13/18 08:15 97.6 16 97.6 Physical Exam General: Alert, Cooperative, No acute distress Heart: No murmurs, Other (prominent L sided carotid bruit) Lungs: Clear Abdomen: Normal bowel sounds, Soft, Other (supraumbilical ventral hernia) Extremities: No clubbing, No edema Skin: No rashes, No breakdown, No significant lesion Labs LABS Laboratory Tests Test 07/13/18 03:30 White Blood Count 6.4 x10^3/uL (4.0-11.0) Red Blood Count 3.40 x10^6/uL (3.50-5.40) Hemoglobin 10.3 g/dL (12.0-15.5) Hematocrit 32.0 % (36.0-47.0) Mean Corpuscular Volume 94 fL (79-100) Mean Corpuscular Hemoglobin 30 pg (25-35) Mean Corpuscular Hemoglobin Concent 32 g/dL (31-37) Red Cell Distribution Width 14.7 % (11.5-14.5) Platelet Count 261 x10^3/uL (140-400) Neutrophils (%) (Auto) 53 % (31-73) Lymphocytes (%) (Auto) 28 % (24-48) Monocytes (%) (Auto) 9 % (0-9) Eosinophils (%) (Auto) 10 % (0-3) Basophils (%) (Auto) 1 % (0-3) Neutrophils # (Auto) 3.3 x10^3uL (1.8-7.7) Lymphocytes # (Auto) 1.8 x10^3/uL (1.0-4.8) Monocytes # (Auto) 0.6 x10^3/uL (0.0-1.1) Eosinophils # (Auto) 0.6 x10^3/uL (0.0-0.7) Basophils # (Auto) 0.1 x10^3/uL (0.0-0.2) Sodium Level 148 mmol/L (136-145) Potassium Level 4.4 mmol/L (3.5-5.1) Chloride Level 109 mmol/L (98-107) Carbon Dioxide Level 30 mmol/L (21-32) Anion Gap 9 (6-14) Blood Urea Nitrogen 25 mg/dL (7-20) Creatinine 0.8 mg/dL (0.6-1.0) Estimated GFR (Cockcroft-Gault) 70.3 BUN/Creatinine Ratio 31 (6-20) Glucose Level 109 mg/dL (70-99) Calcium Level 8.6 mg/dL (8.5-10.1) Total Bilirubin 0.3 mg/dL (0.2-1.0) Aspartate Amino Transf (AST/SGOT) 39 U/L (15-37) Alanine Aminotransferase (ALT/SGPT) 26 U/L (14-59) Alkaline Phosphatase 67 U/L (46-116) Total Protein 6.1 g/dL (6.4-8.2) Albumin 2.9 g/dL (3.4-5.0) Albumin/Globulin Ratio 0.9 (1.0-1.7) Review of Systems Review of Systems Pt complains of expressive aphasia, mild confusion, ventral hernia, occasional anxiety Pt denies CP, SOB, weakness Assessment and Plan Assessmemt and Plan Assessment Aphasia Confusion Evidence of carotid stenosis B/L CVA? Memory loss- Dementia? COPD FH of CAD Former smoker Plan CTA neck per vascular surgery to better view carotid stenosis B/L carotid stenosis- not a surgical candidate Appreciate further subspecialty recs Hope to discharge to SNU tomorrow if stable and if subspecialists agree MRI, EEG and echo grossly normal Synthroid increased to 100mcg- hypothyroid PT/OT speech therapy home meds routine labs DVT prophylaxis SNU will be needed on discharge Comment Review of Relevant I have reviewed the following items vidal (where applicable) has been applied. Labs Laboratory Tests Test 07/12/18 03:00 07/13/18 03:30 Erythrocyte Sedimentation Rate 12 (0-25) Triglycerides Level 63 mg/dL (0-150) Cholesterol Level 130 mg/dL (0-200) LDL Cholesterol, Calculated 47 mg/dL (0-100) VLDL Cholesterol, Calculated 13 mg/dL (0-40) Non-HDL Cholesterol Calculated 60 mg/dL (0-129) HDL Cholesterol 70 mg/dL (40-60) Cholesterol/HDL Ratio 1.9 Thyroid Stimulating Hormone (TSH) 6.417 uIU/mL (0.358-3.74) White Blood Count 6.4 x10^3/uL (4.0-11.0) Red Blood Count 3.40 x10^6/uL (3.50-5.40) Hemoglobin 10.3 g/dL (12.0-15.5) Hematocrit 32.0 % (36.0-47.0) Mean Corpuscular Volume 94 fL (79-100) Mean Corpuscular Hemoglobin 30 pg (25-35) Mean Corpuscular Hemoglobin Concent 32 g/dL (31-37) Red Cell Distribution Width 14.7 % (11.5-14.5) Platelet Count 261 x10^3/uL (140-400) Neutrophils (%) (Auto) 53 % (31-73) Lymphocytes (%) (Auto) 28 % (24-48) Monocytes (%) (Auto) 9 % (0-9) Eosinophils (%) (Auto) 10 % (0-3) Basophils (%) (Auto) 1 % (0-3) Neutrophils # (Auto) 3.3 x10^3uL (1.8-7.7) Lymphocytes # (Auto) 1.8 x10^3/uL (1.0-4.8) Monocytes # (Auto) 0.6 x10^3/uL (0.0-1.1) Eosinophils # (Auto) 0.6 x10^3/uL (0.0-0.7) Basophils # (Auto) 0.1 x10^3/uL (0.0-0.2) Sodium Level 148 mmol/L (136-145) Potassium Level 4.4 mmol/L (3.5-5.1) Chloride Level 109 mmol/L (98-107) Carbon Dioxide Level 30 mmol/L (21-32) Anion Gap 9 (6-14) Blood Urea Nitrogen 25 mg/dL (7-20) Creatinine 0.8 mg/dL (0.6-1.0) Estimated GFR (Cockcroft-Gault) 70.3 BUN/Creatinine Ratio 31 (6-20) Glucose Level 109 mg/dL (70-99) Calcium Level 8.6 mg/dL (8.5-10.1) Total Bilirubin 0.3 mg/dL (0.2-1.0) Aspartate Amino Transf (AST/SGOT) 39 U/L (15-37) Alanine Aminotransferase (ALT/SGPT) 26 U/L (14-59) Alkaline Phosphatase 67 U/L (46-116) Total Protein 6.1 g/dL (6.4-8.2) Albumin 2.9 g/dL (3.4-5.0) Albumin/Globulin Ratio 0.9 (1.0-1.7) Laboratory Tests Test 07/13/18 03:30 White Blood Count 6.4 x10^3/uL (4.0-11.0) Red Blood Count 3.40 x10^6/uL (3.50-5.40) Hemoglobin 10.3 g/dL (12.0-15.5) Hematocrit 32.0 % (36.0-47.0) Mean Corpuscular Volume 94 fL (79-100) Mean Corpuscular Hemoglobin 30 pg (25-35) Mean Corpuscular Hemoglobin Concent 32 g/dL (31-37) Red Cell Distribution Width 14.7 % (11.5-14.5) Platelet Count 261 x10^3/uL (140-400) Neutrophils (%) (Auto) 53 % (31-73) Lymphocytes (%) (Auto) 28 % (24-48) Monocytes (%) (Auto) 9 % (0-9) Eosinophils (%) (Auto) 10 % (0-3) Basophils (%) (Auto) 1 % (0-3) Neutrophils # (Auto) 3.3 x10^3uL (1.8-7.7) Lymphocytes # (Auto) 1.8 x10^3/uL (1.0-4.8) Monocytes # (Auto) 0.6 x10^3/uL (0.0-1.1) Eosinophils # (Auto) 0.6 x10^3/uL (0.0-0.7) Basophils # (Auto) 0.1 x10^3/uL (0.0-0.2) Sodium Level 148 mmol/L (136-145) Potassium Level 4.4 mmol/L (3.5-5.1) Chloride Level 109 mmol/L (98-107) Carbon Dioxide Level 30 mmol/L (21-32) Anion Gap 9 (6-14) Blood Urea Nitrogen 25 mg/dL (7-20) Creatinine 0.8 mg/dL (0.6-1.0) Estimated GFR (Cockcroft-Gault) 70.3 BUN/Creatinine Ratio 31 (6-20) Glucose Level 109 mg/dL (70-99) Calcium Level 8.6 mg/dL (8.5-10.1) Total Bilirubin 0.3 mg/dL (0.2-1.0) Aspartate Amino Transf (AST/SGOT) 39 U/L (15-37) Alanine Aminotransferase (ALT/SGPT) 26 U/L (14-59) Alkaline Phosphatase 67 U/L (46-116) Total Protein 6.1 g/dL (6.4-8.2) Albumin 2.9 g/dL (3.4-5.0) Albumin/Globulin Ratio 0.9 (1.0-1.7) Medications Current Medications Aspirin (Children'S Aspirin) 324 mg 1X ONCE PO Last administered on 07/10/18at 16:36; Start 07/10/18 at 15:45; Stop 07/10/18 at 16:30; Status DC Albuterol Sulfate (Ventolin Neb Soln) 2.5 mg PRN Q6HRS PRN INH SHORTNESS OF BREATH Last administered on 07/12/18at 13:21; Start 07/10/18 at 19:00 Alprazolam (Xanax) 0.75 mg PRN DAILY PRN PO ANXIETY / AGITATION Last administered on 07/12/18at 21:22; Start 07/10/18 at 19:00 Apixaban (Eliquis) 5 mg BID PO Last administered on 07/13/18 08:34; Start 07/10 at 21:00 Aspirin (Children'S Aspirin) 81 mg DAILY PO Last administered on 07/13/18 08: 34; Start 07/11/18 at 09:00 Atorvastatin Calcium (Lipitor) 40 mg QHS PO Last administered on 07/12/18 21:23 ; Start 07/10/18 at 21:00 Furosemide (Lasix) 10 mg DAILY PO Last administered on 07/13/18 08:37; Start 07/11/18 at 09:00 Isosorbide Mononitrate (Imdur) 30 mg DAILY PO Last administered on 07/13/18 08 :37; Start 07/11/18 at 09:00 Levothyroxine Sodium (Synthroid) 75 mcg DAILY07 PO Last administered on 06:15; Start 07/11/18 at 07:00; Stop 07/12/18 at 17:17; Status DC Lisinopril (Prinivil) 10 mg DAILY PO Last administered on 07/13/18 08:37; Start 07/11/18 at 09:00 Metoprolol Succinate (Toprol Xl) 25 mg DAILY PO Last administered on 07/13/18 08:38; Start 07/11/18 at 09:00 Nitroglycerin (Nitrostat) 0.4 mg PRN Q5MIN PRN SL CHEST PAIN; Start 07/10/18 at 19:00 Triamcinolone Acetonide (Kenalog) 1 mayank PRN BID PRN TP RASH; Start 07/10/18 at 19:00 Non-Formulary Medication (Alendronate Sodium (Fosamax)) 1 tab WEEKLY PO ; Start 07/17/18 at 09:00; Status UNV Calcium Carbonate/ Glycine (Oscal) 1,000 mg TIDAFTMEAL PO Last administered on 07/13/18 08:37; Start 07/11/18 at 09:00 Vitamin D (Vitamin D3) 2,000 unit DAILY PO Last administered on 07/13/18 08:38 ; Start 07/11/18 at 09:00 Diltiazem HCl (Cardizem 24hr Cd) 120 mg DAILY PO Last administered on 08:34; Start 07/11/18 at 09:00 Guaifenesin (Robitussin) 400 mg PRN BID PRN PO COUGH; Start 07/10/18 at 19:15 Memantine (Namenda) 10 mg DAILY PO ; Start 07/11/18 at 09:00; Stop 07/11/18 at 12: 59; Status DC Multivitamins (Thera M Plus) 1 tab DAILY PO Last administered on 07/13/18 08: 37; Start 07/11/18 at 09:00 Fish Oil (Fish Oil) 1,000 mg DAILY PO Last administered on 07/13/18 08:34; Start 07/11/18 at 09:00 Pantoprazole Sodium (Protonix) 40 mg DAILYAC PO Last administered on 07/13/18 06:23; Start 07/11/18 at 07:30 Non-Formulary Medication (Potassium Chloride ) 99 mg DAILY PO ; Start 07/11/18 at 09:00; Status UNV Pyridoxine HCl (Vitamin B-6) 200 mg DAILY PO Last administered on 07/13/18 08: 38; Start 07/11/18 at 09:00 Non-Formulary Medication (Ubidecarenone (Coenzyme Q10)) 10 mg DAILY PO ; Start 07/11/18 at 09:00; Status UNV Non-Formulary Medication 1 ea DAILY INH Last administered on 07/13/18 08:33; Start 07/11/18 at 09:00 Info (Anti-Coagulation Monitoring By Pharmacy) 1 each PRN DAILY PRN MC SEE COMMENTS Last administered on 07/11/18at 10:48; Start 07/11/18 at 07:45 Acetaminophen (Tylenol) 650 mg PRN Q6HRS PRN PO TEMP > 100.4F; Start 07/11/18 at 08:45 Acetaminophen (Tylenol Supp) 650 mg PRN Q4HRS PRN SD TEMP > 100.4F; Start at 08:45 Memantine (Namenda) 10 mg QHS PO Last administered on 07/12/18 21:23; Start 07/11/18 at 21:00 Magnesium Hydroxide (Milk Of Magnesia) 2,400 mg PRN DAILY PRN PO CONSTIPATION Last administered on 07/12/18 15:31; Start 07/12/18 at 14:15 Albuterol Sulfate (Ventolin Neb Soln) 2.5 mg RTQID NEB Last administered on 02/21at 09:03; Start 07/12/18 at 20:00 Levothyroxine Sodium (Synthroid) 100 mcg DAILY07 PO Last administered on at 06:23; Start 07/13/18 at 07:00 Iohexol (Omnipaque 350 Mg/ml) 75 ml 1X ONCE IV Last administered on 07/13/18at 07:39; Start 07/13/18 at 07:15; Stop 07/13/18 at 07:16; Status DC Info (CONTRAST GIVEN -- Rx MONITORING) 1 each PRN DAILY PRN MC SEE COMMENTS; Start 07/13/18 at 07:15; Stop 07/15/18 at 07:14 Magnesium Hydroxide (Milk Of Magnesia) 2,400 mg 1X ONCE PO ; Start 07/13/18 at 11:00; Stop 07/13/18 at 11:01; Status DC Active Scripts Active Reported Anoro Ellipta 62.5-25 Mcg Inh (Umeclidinium Brm/Vilanterol Tr) 1 Each Disk.w.dev 1 Each IH DAILY Triamcinolone Acetonide 0.1% Oint (Triamcinolone Acetonide) 15 Gm Oint...g. 1 Mayank TP PRN BID MIX WITH EUCERIN DIRECTED BY PHYSICIAN Synthroid (Levothyroxine Sodium) 75 Mcg Tablet 1 Tab PO DAILY B-6 (Pyridoxine HCl (Vitamin B6)) 200 Mg Tablet.er 200 Mg PO DAILY Proair Hfa Inhaler (Albuterol Sulfate) 8.5 Gm Hfa.aer.ad 2 Puff INH PRN Q6HRS PRN Potassium Chloride 20 Meq Tablet.er 99 Mg PO DAILY Protonix (Pantoprazole Sodium) 20 Mg Tablet.dr 40 Mg PO DAILY Fish Oil 1,000 mg Softgel ([place]-3/Dha/Epa/Fish Oil) 1,000 Mg Capsule 1,000 Mg PO DAILY NITROGLYCERIN SubLingual (Nitroglycerin) 0.4 Mg Tab.subl 0.4 Mg SL PRN Q5MIN PRN Multivitamins (Multivitamin) 1 Each Tablet 1 Tab PO DAILY Metoprolol Succinate ( Xl ) (Metoprolol Succinate) 25 Mg Tab.er.24h 25 Mg PO DAILY Namenda (Memantine Hcl) 10 Mg Tablet 10 Mg PO DAILY Lisinopril 10 Mg Tablet 10 Mg PO DAILY Isosorbide Mononitrate Er (Isosorbide Mononitrate) 30 Mg Tab.er.24h 30 Mg PO DAILY Guaifenesin 400 Mg Tablet 400 Mg PO PRN BID Lasix (Furosemide) 20 Mg Tablet 10 Mg PO DAILY Eliquis (Apixaban) 5 Mg Tablet 5 Mg PO BID Cardizem Cd (Diltiazem Hcl) 180 Mg Cap.er.24h 120 Mg PO DAILY Coenzyme Q10 (Ubidecarenone) 10 Mg Capsule 10 Mg PO DAILY Vitamin D (Cholecalciferol (Vitamin D3)) 2,000 Unit Capsule 1 Cap PO DAILY Calcium Carbonate 600 Mg Tablet 1,200 Mg PO TID Lipitor (Atorvastatin Calcium) 40 Mg Tablet 1 Tab PO QHS Aspirin 81 Mg Tab.chew 1 Tab PO DAILY Xanax (Alprazolam) 0.5 Mg Tablet 0.75 Mg PO PRN DAILY PRN Fosamax (Alendronate Sodium) 70 Mg Tablet 1 Tab PO WEEKLY Proair Hfa Inhaler (Albuterol Sulfate) 8.5 Gm Hfa.aer.ad 1 Puff INH PRN Q6HRS PRN Vitals/I & O Vital Sign - Last 24 Hours 07/12/18 07/12/18 07/12/18 07/12/18 13:23 15:15 19:30 19:30 Temp 97.8 97.6 97.8 97.6 Pulse 69 71 Resp 20 18 B/P (MAP) 104/39 (60) 142/46 (78) Pulse Ox 98 98 O2 Delivery Room Air Nasal Cannula Room Air Room Air O2 Flow Rate 2.0 2.0 07/12/18 07/12/18 07/13/18 07/13/18 19:50 22:59 03:00 07:00 Temp 98.7 98.0 98.7 98.0 Pulse 70 65 Resp 16 16 B/P (MAP) 135/51 (79) 148/62 (90) Pulse Ox 97 99 98 O2 Delivery Nasal Cannula Nasal Cannula Nasal Cannula Nasal Cannula O2 Flow Rate 2.0 2.0 2.0 2.0 07/13/18 07/13/18 07/13/18 07/13/18 08:00 08:15 08:34 08:37 Temp 97.6 97.6 Pulse 63 63 63 Resp 16 B/P (MAP) 156/61 (92) 156/61 156/61 Pulse Ox 98 O2 Delivery Nasal Cannula Nasal Cannula O2 Flow Rate 2.0 2.0 07/13/18 07/13/18 07/13/18 08:37 08:38 09:05 Pulse 63 63 B/P (MAP) 156/61 156/61 Pulse Ox 100 O2 Delivery Nasal Cannula O2 Flow Rate 2.0 Intake and Output 07/12/18 07/12/18 07/13/18 14:59 22:59 06:59 Intake Total 1300 ml 0 ml Balance 1300 ml 0 ml Nutrition Consultation Dietary Evaluation: Recommendations by RD: Protein supplementation Comments: Continue w/regular diet as ordered to promote continued good PO intake Will add Ensure BID (strawberry) Expected Outcomes/Goals: PO intake to meet >75% est needs Malnutrition Findings: Body Fat Depletion (Non Severe: Mild Depletion Weight Status: Appropriate CASTLEAVIL K III DO Jul 13, 2018 11:12
[2018-07-13] MEDS: ANTI-COAG MONITOR BY PHARMACY. MC PRN (12:38)
--- NOTE | 2018-07-13 12:49 | PDOC ---
Provider Note Provider Note Vascular surgery follow-up consult note CTA is reviewed. I believe the internal carotid artery is occluded. There is some contrast in the distal internal carotid artery and the siphon, it is difficult to tell where this blood flow came from. In addition there is severe calcific stenosis at the carotid bifurcation on the left and this appears to be associated with a significant left internal carotid artery stenosis. The distal left internal carotid artery is widely patent and the right hemisphere spelled by intercerebral collaterals and posterior circulatory collaterals. Discussed this with the patient. She still exhibits minimal understanding of the above problems. She is unable to consent for consideration of left carotid endarterectomy. I believe her left internal carotid artery stenosis is asymptomatic. Given a right internal carotid artery occlusion and a severe to critical stenosis of the left internal carotid artery, the patient remains at significant risk for stroke. Left carotid endarterectomy could reduce his risk of stroke. My recommendation would be for additional discussion with family members to assist in making this decision isn't believe the patient is incompetent to do so. Would consider left carotid endarterectomy if family members and/or DPOAE consents to this surgery JUMA ASHLEY MD Jul 13, 2018 12:49
--- NOTE | 2018-07-13 13:42 | PDOC2 ---
CARDIOLOGY CONSULT NOTE CHEIF COMPLAINT: Speech difficulty and pulmonary valvular disease HPI: Pleasant 73-year-old woman who has been admitted to the hospital in the setting of speech difficulty. She is currently being evaluated by neurology and vascular surgery in the setting of critical carotid disease. Cardiology was asked to comment on her pulmonary regurgitation and pulmonary hypertension noted on a routine echocardiogram. She does have a long-standing history of paroxysmal atrial fibrillation and prior history of CVA as well as hypertension. She currently denies any chest pain. No palpitations. No dyspnea. Due to her expressive aphasia it was difficult to have a conversation with her but grossly she appears to deny any specific cardiac problems at this time. PMHX: CVA Dementia Peripheral arterial disease Proximal atrial fibrillation Diastolic dysfunction. SOCHX: As noted and other consultants evaluation she has limited social support. Her daughter she verbalized to me wasn't aware situation and she was due to chronic comorbidities. FAMHX: Noncontributory CURRENT MEDS: Current Medications Medications (Trade) Dose Ordered Sig/Denise Start Time Stop Time Status Last Admin Dose Admin Acetaminophen (Tylenol Supp) 650 mg PRN Q4HRS PRN 07/11/18 08:45 Acetaminophen (Tylenol) 650 mg PRN Q6HRS PRN 07/11/18 08:45 Albuterol Sulfate (Ventolin Neb Soln) 2.5 mg RTQID 07/12/18 20:00 07/13/18 12:32 2.5 MG Alprazolam (Xanax) 0.75 mg PRN DAILY PRN 07/10/18 19:00 07/12/18 21:22 0.5 MG Apixaban (Eliquis) 5 mg BID 07/10/18 21:00 07/13/18 08:34 5 MG Aspirin (Children'S Aspirin) 81 mg DAILY 07/11/18 09:00 07/13/18 08:34 81 MG Atorvastatin Calcium (Lipitor) 40 mg QHS 07/10/18 21:00 07/12/18 21:23 40 MG Calcium Carbonate/ Glycine (Oscal) 1,000 mg TIDAFTMEAL 07/11/18 09:00 07/13/18 12:36 1,000 MG Diltiazem HCl (Cardizem 24hr Cd) 120 mg DAILY 07/11/18 09:00 07/13/18 08:34 120 MG Fish Oil (Fish Oil) 1,000 mg DAILY 07/11/18 09:00 07/13/18 08:34 1,000 MG Furosemide (Lasix) 10 mg DAILY 07/11/18 09:00 07/13/18 08:37 10 MG Guaifenesin (Robitussin) 400 mg PRN BID PRN 07/10/18 19:15 Info (Anti-Coagulation Monitoring By Pharmacy) 1 each PRN DAILY PRN 07/11/18 07:45 07/13/18 12:38 1 EACH Info (CONTRAST GIVEN -- Rx MONITORING) 1 each PRN DAILY PRN 07/13/18 07:15 07/15/18 07:14 Iohexol (Omnipaque 350 Mg/ml) 75 ml 1X ONCE 07/13/18 07:15 07/13/18 07:16 DC 07/13/18 07:39 75 ML Isosorbide Mononitrate (Imdur) 30 mg DAILY 07/11/18 09:00 07/13/18 08:37 30 MG Levothyroxine Sodium (Synthroid) 100 mcg DAILY07 07/13/18 07:00 07/13/18 06:23 100 MCG Lisinopril (Prinivil) 10 mg DAILY 07/11/18 09:00 07/13/18 08:37 10 MG Magnesium Hydroxide (Milk Of Magnesia) 2,400 mg 1X ONCE 07/13/18 11:00 07/13/18 11:01 DC 07/13/18 12:36 2,400 MG Memantine (Namenda) 10 mg QHS 07/11/18 21:00 07/12/18 21:23 10 MG Metoprolol Succinate (Toprol Xl) 25 mg DAILY 07/11/18 09:00 07/13/18 08:38 25 MG Multivitamins (Thera M Plus) 1 tab DAILY 07/11/18 09:00 07/13/18 08:37 1 TAB Nitroglycerin (Nitrostat) 0.4 mg PRN Q5MIN PRN 07/10/18 19:00 Non-Formulary Medication 1 ea DAILY 07/11/18 09:00 07/13/18 08:33 1 EA Non-Formulary Medication (Alendronate Sodium (Fosamax)) 1 tab WEEKLY 07/17/18 09:00 UNV Non-Formulary Medication (Potassium Chloride ) 99 mg DAILY 07/11/18 09:00 UNV Non-Formulary Medication (Ubidecarenone (Coenzyme Q10)) 10 mg DAILY 07/11/18 09:00 UNV Pantoprazole Sodium (Protonix) 40 mg DAILYAC 07/11/18 07:30 07/13/18 06:23 40 MG Pyridoxine HCl (Vitamin B-6) 200 mg DAILY 07/11/18 09:00 07/13/18 08:38 200 MG Triamcinolone Acetonide (Kenalog) 1 jesu PRN BID PRN 07/10/18 19:00 Vitamin D (Vitamin D3) 2,000 unit DAILY 07/11/18 09:00 07/13/18 08:38 2,000 UNIT ALLERGIES: Allergies Coded Allergies Type Severity Reaction Last Updated Verified NSAIDS (Non-Steroidal Anti-Inflamma Allergy Unknown 07/10/18 Yes atropine Allergy Unknown 07/10/18 Yes bacitracin Allergy Unknown 07/10/18 Yes belladonna alkaloids Allergy Unknown 07/10/18 Yes diphenhydramine Allergy Unknown 07/10/18 Yes gramicidin D Allergy Unknown 07/10/18 Yes hyoscyamine Allergy Unknown 07/10/18 Yes ketorolac Allergy Unknown 07/10/18 Yes morphine Allergy Unknown 07/10/18 Yes neomycin Allergy Unknown 07/10/18 Yes penicillin G Allergy Unknown 07/10/18 Yes penicillin V Allergy Unknown 07/10/18 Yes phenobarbital Allergy Unknown 07/10/18 Yes polymyxin B Allergy Unknown 07/10/18 Yes scopolamine Allergy Unknown 07/10/18 Yes ROS: Unable to be fully performed due to the patient's mental status PHYSICAL EXAM: Vital Signs: Vital Signs Date Time Temp Pulse Resp B/P (MAP) Pulse Ox O2 Delivery O2 Flow Rate FiO2 07/13/18 12:33 97 Nasal Cannula 2.0 07/13/18 12:20 179/74 (109) 07/13/18 11:25 97.4 52 20 97.4 I & O Intake and Output 07/13/18 07:00 Intake Total 1300 ml Balance 1300 ml Intake Oral 1300 ml # Voids 5 # Bowel Movements 1 Physical Exam: On exam she is a frail elderly woman in no acute distress Cardiac exam reveals normal rhythm Lungs are clear to auscultation anteriorly Abdomen is soft nontender extremities do not have any significant edema Diminished pedal and radial pulses Deferred neuro exam. DIAGNOSTIC TESTING: Echocardiogram reveals minimal pulmonary insufficiency with mild pulmonary hypertension which is not unexpected given her other multiple comorbidities Laboratory testing is otherwise unremarkable MRI and CT angiography of the neck and other laboratory evaluation reviewed. ASSESSMENT: 1. PAD 2. CVA and dementia 3. PAF 4. HTN PLAN: 1. Echo reviewed - This is a benign finding at this time. Would not treat any further 2. Continue titration of medical therapy to optimize risks. 3. No clear cardiac reason that would prohibit carotid surgery. Thanks for consultation. Pls call with questions. JONATHON TARIQ MD Jul 13, 2018 13:42
--- NOTE | 2018-07-13 15:03 | PDOC ---
PROGRESS NOTES Assessment Chronic dementia, most likely a frontotemporal type given the language difficulties. Note elevated TSH Carotid artery stenosis, bilaterally, CTA reviewed Pulmonary hypertension and pulmonic valve regurgitation. She is on Eliquis and aspirin already Plan On increased Synthroid dose Cardiac and vascular consultations appreciated She needs placement. This is a tough situation. I actually believe she has the competence to make this limited medical decision regarding the need for carotid endarterectomies. She has been living on her own. As I documented in detail below, she was able to hold an intelligent conversation regarding this possible surgery. She says that her youngest daughter , oldest daughter is apparently debilitated due to cardiac disease, she does not have any friends that she can call, she basically says there is no one to call to help with this decision. 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 Radiologist recommends CT chest based on CTA abnormality Subjective no complaints Objective Vital Signs Date Time Temp Pulse Resp B/P (MAP) Pulse Ox O2 Delivery O2 Flow Rate FiO2 07/13/18 13:40 140/58 (85) 07/13/18 12:33 97 Nasal Cannula 2.0 07/13/18 11:25 97.4 52 20 97.4 Intake and Output 07/13/18 07:00 Intake Total 1300 ml Balance 1300 ml Intake Oral 1300 ml # Voids 5 # Bowel Movements 1 PHYSICAL EXAM Alert. Speech is very tangential, really not a lot of meaning to her speech, but she names and repeats and she knows that she is in the hospital. She is able to discuss possible vascular surgery. She is hoping that we'll save the eyesight in her left eye. She understands there is a risk of stroke and . PERRL. EOMI. CN: Eyes blind, otherwise no acute focal findings. Muscle tone: normal. Muscle strength: 5/5 DTR: 2+ Plantar reflex: Flexor Gait: not examined in bed. Sensory exam: no abnormal findings. No cerebellar signs elicited. Review of Relevant I have reviewed the following items vidal (where applicable) has been applied. Labs Laboratory Tests Test 07/12/18 03:00 07/13/18 03:30 Erythrocyte Sedimentation Rate 12 (0-25) Triglycerides Level 63 mg/dL (0-150) Cholesterol Level 130 mg/dL (0-200) LDL Cholesterol, Calculated 47 mg/dL (0-100) VLDL Cholesterol, Calculated 13 mg/dL (0-40) Non-HDL Cholesterol Calculated 60 mg/dL (0-129) HDL Cholesterol 70 mg/dL (40-60) Cholesterol/HDL Ratio 1.9 Thyroid Stimulating Hormone (TSH) 6.417 uIU/mL (0.358-3.74) White Blood Count 6.4 x10^3/uL (4.0-11.0) Red Blood Count 3.40 x10^6/uL (3.50-5.40) Hemoglobin 10.3 g/dL (12.0-15.5) Hematocrit 32.0 % (36.0-47.0) Mean Corpuscular Volume 94 fL (79-100) Mean Corpuscular Hemoglobin 30 pg (25-35) Mean Corpuscular Hemoglobin Concent 32 g/dL (31-37) Red Cell Distribution Width 14.7 % (11.5-14.5) Platelet Count 261 x10^3/uL (140-400) Neutrophils (%) (Auto) 53 % (31-73) Lymphocytes (%) (Auto) 28 % (24-48) Monocytes (%) (Auto) 9 % (0-9) Eosinophils (%) (Auto) 10 % (0-3) Basophils (%) (Auto) 1 % (0-3) Neutrophils # (Auto) 3.3 x10^3uL (1.8-7.7) Lymphocytes # (Auto) 1.8 x10^3/uL (1.0-4.8) Monocytes # (Auto) 0.6 x10^3/uL (0.0-1.1) Eosinophils # (Auto) 0.6 x10^3/uL (0.0-0.7) Basophils # (Auto) 0.1 x10^3/uL (0.0-0.2) Sodium Level 148 mmol/L (136-145) Potassium Level 4.4 mmol/L (3.5-5.1) Chloride Level 109 mmol/L (98-107) Carbon Dioxide Level 30 mmol/L (21-32) Anion Gap 9 (6-14) Blood Urea Nitrogen 25 mg/dL (7-20) Creatinine 0.8 mg/dL (0.6-1.0) Estimated GFR (Cockcroft-Gault) 70.3 BUN/Creatinine Ratio 31 (6-20) Glucose Level 109 mg/dL (70-99) Calcium Level 8.6 mg/dL (8.5-10.1) Total Bilirubin 0.3 mg/dL (0.2-1.0) Aspartate Amino Transf (AST/SGOT) 39 U/L (15-37) Alanine Aminotransferase (ALT/SGPT) 26 U/L (14-59) Alkaline Phosphatase 67 U/L (46-116) Total Protein 6.1 g/dL (6.4-8.2) Albumin 2.9 g/dL (3.4-5.0) Albumin/Globulin Ratio 0.9 (1.0-1.7) Laboratory Tests Test 07/13/18 03:30 White Blood Count 6.4 x10^3/uL (4.0-11.0) Red Blood Count 3.40 x10^6/uL (3.50-5.40) Hemoglobin 10.3 g/dL (12.0-15.5) Hematocrit 32.0 % (36.0-47.0) Mean Corpuscular Volume 94 fL (79-100) Mean Corpuscular Hemoglobin 30 pg (25-35) Mean Corpuscular Hemoglobin Concent 32 g/dL (31-37) Red Cell Distribution Width 14.7 % (11.5-14.5) Platelet Count 261 x10^3/uL (140-400) Neutrophils (%) (Auto) 53 % (31-73) Lymphocytes (%) (Auto) 28 % (24-48) Monocytes (%) (Auto) 9 % (0-9) Eosinophils (%) (Auto) 10 % (0-3) Basophils (%) (Auto) 1 % (0-3) Neutrophils # (Auto) 3.3 x10^3uL (1.8-7.7) Lymphocytes # (Auto) 1.8 x10^3/uL (1.0-4.8) Monocytes # (Auto) 0.6 x10^3/uL (0.0-1.1) Eosinophils # (Auto) 0.6 x10^3/uL (0.0-0.7) Basophils # (Auto) 0.1 x10^3/uL (0.0-0.2) Sodium Level 148 mmol/L (136-145) Potassium Level 4.4 mmol/L (3.5-5.1) Chloride Level 109 mmol/L (98-107) Carbon Dioxide Level 30 mmol/L (21-32) Anion Gap 9 (6-14) Blood Urea Nitrogen 25 mg/dL (7-20) Creatinine 0.8 mg/dL (0.6-1.0) Estimated GFR (Cockcroft-Gault) 70.3 BUN/Creatinine Ratio 31 (6-20) Glucose Level 109 mg/dL (70-99) Calcium Level 8.6 mg/dL (8.5-10.1) Total Bilirubin 0.3 mg/dL (0.2-1.0) Aspartate Amino Transf (AST/SGOT) 39 U/L (15-37) Alanine Aminotransferase (ALT/SGPT) 26 U/L (14-59) Alkaline Phosphatase 67 U/L (46-116) Total Protein 6.1 g/dL (6.4-8.2) Albumin 2.9 g/dL (3.4-5.0) Albumin/Globulin Ratio 0.9 (1.0-1.7) Medications Current Medications Aspirin (Children'S Aspirin) 324 mg 1X ONCE PO Last administered on 07/10/18 16:36; Start 07/10/18 at 15:45; Stop 07/10/18 at 16:30; Status DC Albuterol Sulfate (Ventolin Neb Soln) 2.5 mg PRN Q6HRS PRN INH SHORTNESS OF BREATH Last administered on 07/12/18 13:21; Start 07/10/18 at 19:00 Alprazolam (Xanax) 0.75 mg PRN DAILY PRN PO ANXIETY / AGITATION Last administered on 07/12/18 21:22; Start 07/10/18 at 19:00 Apixaban (Eliquis) 5 mg BID PO Last administered on 07/13/18 08:34; Start 07/10 at 21:00 Aspirin (Children'S Aspirin) 81 mg DAILY PO Last administered on 07/13/18 08: 34; Start 07/11/18 at 09:00 Atorvastatin Calcium (Lipitor) 40 mg QHS PO Last administered on 07/12/18 21:23 ; Start 07/10/18 at 21:00 Furosemide (Lasix) 10 mg DAILY PO Last administered on 07/13/18 08:37; Start 07/11/18 at 09:00 Isosorbide Mononitrate (Imdur) 30 mg DAILY PO Last administered on 07/13/18 08 :37; Start 07/11/18 at 09:00 Levothyroxine Sodium (Synthroid) 75 mcg DAILY07 PO Last administered on 06:15; Start 07/11/18 at 07:00; Stop 07/12/18 at 17:17; Status DC Lisinopril (Prinivil) 10 mg DAILY PO Last administered on 07/13/18 08:37; Start 07/11/18 at 09:00 Metoprolol Succinate (Toprol Xl) 25 mg DAILY PO Last administered on 07/13/18 08:38; Start 07/11/18 at 09:00 Nitroglycerin (Nitrostat) 0.4 mg PRN Q5MIN PRN SL CHEST PAIN; Start 07/10/18 at 19:00 Triamcinolone Acetonide (Kenalog) 1 mayank PRN BID PRN TP RASH; Start 07/10/18 at 19:00 Non-Formulary Medication (Alendronate Sodium (Fosamax)) 1 tab WEEKLY PO ; Start 07/17/18 at 09:00; Status UNV Calcium Carbonate/ Glycine (Oscal) 1,000 mg TIDAFTMEAL PO Last administered on 07/13/18at 12:36; Start 07/11/18 at 09:00 Vitamin D (Vitamin D3) 2,000 unit DAILY PO Last administered on 07/13/18 08:38 ; Start 07/11/18 at 09:00 Diltiazem HCl (Cardizem 24hr Cd) 120 mg DAILY PO Last administered on 08:34; Start 07/11/18 at 09:00 Guaifenesin (Robitussin) 400 mg PRN BID PRN PO COUGH; Start 07/10/18 at 19:15 Memantine (Namenda) 10 mg DAILY PO ; Start 07/11/18 at 09:00; Stop 07/11/18 at 12: 59; Status DC Multivitamins (Thera M Plus) 1 tab DAILY PO Last administered on 07/13/18 08: 37; Start 07/11/18 at 09:00 Fish Oil (Fish Oil) 1,000 mg DAILY PO Last administered on 07/13/18 08:34; Start 07/11/18 at 09:00 Pantoprazole Sodium (Protonix) 40 mg DAILYAC PO Last administered on 07/13/18 06:23; Start 07/11/18 at 07:30 Non-Formulary Medication (Potassium Chloride ) 99 mg DAILY PO ; Start 07/11/18 at 09:00; Status UNV Pyridoxine HCl (Vitamin B-6) 200 mg DAILY PO Last administered on 07/13/18 08: 38; Start 07/11/18 at 09:00 Non-Formulary Medication (Ubidecarenone (Coenzyme Q10)) 10 mg DAILY PO ; Start 07/11/18 at 09:00; Status UNV Non-Formulary Medication 1 ea DAILY INH Last administered on 07/13/18 08:33; Start 07/11/18 at 09:00 Info (Anti-Coagulation Monitoring By Pharmacy) 1 each PRN DAILY PRN MC SEE COMMENTS Last administered on 07/13/18 12:38; Start 07/11/18 at 07:45 Acetaminophen (Tylenol) 650 mg PRN Q6HRS PRN PO TEMP > 100.4F; Start 07/11/18 at 08:45 Acetaminophen (Tylenol Supp) 650 mg PRN Q4HRS PRN OR TEMP > 100.4F; Start at 08:45 Memantine (Namenda) 10 mg QHS PO Last administered on 07/12/18 21:23; Start 07/11/18 at 21:00 Magnesium Hydroxide (Milk Of Magnesia) 2,400 mg PRN DAILY PRN PO CONSTIPATION Last administered on 07/12/18 15:31; Start 07/12/18 at 14:15 Albuterol Sulfate (Ventolin Neb Soln) 2.5 mg RTQID NEB Last administered on 12:32; Start 07/12/18 at 20:00 Levothyroxine Sodium (Synthroid) 100 mcg DAILY07 PO Last administered on 06:23; Start 07/13/18 at 07:00 Iohexol (Omnipaque 350 Mg/ml) 75 ml 1X ONCE IV Last administered on 07/13/18 07:39; Start 07/13/18 at 07:15; Stop 07/13/18 at 07:16; Status DC Info (CONTRAST GIVEN -- Rx MONITORING) 1 each PRN DAILY PRN MC SEE COMMENTS; Start 07/13/18 at 07:15; Stop 07/15/18 at 07:14 Magnesium Hydroxide (Milk Of Magnesia) 2,400 mg 1X ONCE PO Last administered on 07/13/18at 12:36; Start 07/13/18 at 11:00; Stop 07/13/18 at 11:01; Status DC Active Scripts Active Reported Anoro Ellipta 62.5-25 Mcg Inh (Umeclidinium Brm/Vilanterol Tr) 1 Each Disk.w.dev 1 Each IH DAILY Triamcinolone Acetonide 0.1% Oint (Triamcinolone Acetonide) 15 Gm Oint...g. 1 Mayank TP PRN BID MIX WITH EUCERIN DIRECTED BY PHYSICIAN Synthroid (Levothyroxine Sodium) 75 Mcg Tablet 1 Tab PO DAILY B-6 (Pyridoxine HCl (Vitamin B6)) 200 Mg Tablet.er 200 Mg PO DAILY Proair Hfa Inhaler (Albuterol Sulfate) 8.5 Gm Hfa.aer.ad 2 Puff INH PRN Q6HRS PRN Potassium Chloride 20 Meq Tablet.er 99 Mg PO DAILY Protonix (Pantoprazole Sodium) 20 Mg Tablet.dr 40 Mg PO DAILY Fish Oil 1,000 mg Softgel ([place]-3/Dha/Epa/Fish Oil) 1,000 Mg Capsule 1,000 Mg PO DAILY NITROGLYCERIN SubLingual (Nitroglycerin) 0.4 Mg Tab.subl 0.4 Mg SL PRN Q5MIN PRN Multivitamins (Multivitamin) 1 Each Tablet 1 Tab PO DAILY Metoprolol Succinate ( Xl ) (Metoprolol Succinate) 25 Mg Tab.er.24h 25 Mg PO DAILY Namenda (Memantine Hcl) 10 Mg Tablet 10 Mg PO DAILY Lisinopril 10 Mg Tablet 10 Mg PO DAILY Isosorbide Mononitrate Er (Isosorbide Mononitrate) 30 Mg Tab.er.24h 30 Mg PO DAILY Guaifenesin 400 Mg Tablet 400 Mg PO PRN BID Lasix (Furosemide) 20 Mg Tablet 10 Mg PO DAILY Eliquis (Apixaban) 5 Mg Tablet 5 Mg PO BID Cardizem Cd (Diltiazem Hcl) 180 Mg Cap.er.24h 120 Mg PO DAILY Coenzyme Q10 (Ubidecarenone) 10 Mg Capsule 10 Mg PO DAILY Vitamin D (Cholecalciferol (Vitamin D3)) 2,000 Unit Capsule 1 Cap PO DAILY Calcium Carbonate 600 Mg Tablet 1,200 Mg PO TID Lipitor (Atorvastatin Calcium) 40 Mg Tablet 1 Tab PO QHS Aspirin 81 Mg Tab.chew 1 Tab PO DAILY Xanax (Alprazolam) 0.5 Mg Tablet 0.75 Mg PO PRN DAILY PRN Fosamax (Alendronate Sodium) 70 Mg Tablet 1 Tab PO WEEKLY Proair Hfa Inhaler (Albuterol Sulfate) 8.5 Gm Hfa.aer.ad 1 Puff INH PRN Q6HRS PRN Vitals/I & O Vital Sign - Last 24 Hours 07/12/18 07/12/18 07/12/18 07/12/18 15:15 19:30 19:30 19:50 Temp 97.8 97.6 97.8 97.6 Pulse 69 71 Resp 20 18 B/P (MAP) 104/39 (60) 142/46 (78) Pulse Ox 98 98 97 O2 Delivery Nasal Cannula Room Air Room Air Nasal Cannula O2 Flow Rate 2.0 2.0 07/12/18 07/13/18 07/13/18 07/13/18 22:59 03:00 07:00 08:00 Temp 98.7 98.0 98.7 98.0 Pulse 70 65 Resp 16 16 B/P (MAP) 135/51 (79) 148/62 (90) Pulse Ox 99 98 O2 Delivery Nasal Cannula Nasal Cannula Nasal Cannula Nasal Cannula O2 Flow Rate 2.0 2.0 2.0 2.0 07/13/18 07/13/18 07/13/18 07/13/18 08:15 08:34 08:37 08:37 Temp 97.6 97.6 Pulse 63 63 63 63 Resp 16 B/P (MAP) 156/61 (92) 156/61 156/61 156/61 Pulse Ox 98 O2 Delivery Nasal Cannula O2 Flow Rate 2.0 07/13/18 07/13/18 07/13/18 07/13/18 08:38 09:05 11:25 12:20 Temp 97.4 97.4 Pulse 63 52 Resp 20 B/P (MAP) 156/61 169/86 (113) 179/74 (109) Pulse Ox 100 98 O2 Delivery Nasal Cannula Nasal Cannula O2 Flow Rate 2.0 2.0 07/13/18 07/13/18 12:33 13:40 B/P (MAP) 140/58 (85) Pulse Ox 97 O2 Delivery Nasal Cannula O2 Flow Rate 2.0 Intake and Output 07/12/18 07/12/18 07/13/18 15:00 23:00 07:00 Intake Total 1300 ml 0 ml Balance 1300 ml 0 ml ZENY SZYMANSKI MD Jul 13, 2018 15:03
--- NOTE | 2018-07-13 17:16 | CONS ---
DATE OF CONSULTATION: 07/12/2018 REASON FOR CONSULTATION: Carotid artery stenosis. HISTORY OF PRESENT ILLNESS: This is a 73-year-old female with some underlying memory deficit issues, who is admitted to the hospital because of some concern regarding an abdominal hernia (the patient history). She is little difficult to get history from, is talking about her eyes and then, her hernia and then, the hospital in [place]. She denies any history of unilateral weakness, numbness or speech difficulty. She does state that she has had some vision loss in her right eye, but it is unclear whether that was transient or related to primary eye pathology. She has had multiple previous hernia repairs and she says she has a recurrence of her hernia, which is causing her some abdominal discomfort at times. She has chronic obstructive lung disease. No underlying drug allergies. Remote history of tobacco use, currently not smoking. She thinks she might have an allergy to IODINE, but she is not sure and she referred me to her medical records to clarify that. She does have multiple allergies listed. PHYSICAL EXAMINATION: GENERAL: She is cooperative. She knows where she is. HEAD AND NECK: Unremarkable. Normal carotid upstroke on the left, I think normal carotid upstroke on the right. She does have a soft carotid bruit. No cervical lymphadenopathy. CHEST: Breath sounds are distant. CARDIAC: Regular rhythm. ABDOMEN: Soft, without organomegaly or masses. No palpable aneurysm. EXTREMITIES: Shows palpable radial, femoral and popliteal pulses bilaterally. ADMISSION LABORATORY DATA: White blood cell count 7000, hemoglobin 10.9, platelets 286,000. Electrolytes are unremarkable. She has had imaging studies performed. She has no acute intracranial injury. Ultrasound examination of the carotid arteries are abnormal. On the left side, the carotid peak systolic velocity of 270 cm/sec, end diastolic velocity of 91 cm/sec. Ratios are normal. On the right side, there is flow velocity in the proximal common carotid artery suggesting proximal inflow disease. There is calcification of the carotid bifurcation, which makes additional visualization of the carotid lumen difficult. IMPRESSION: I do not think the patient has had any recent cerebrovascular events. I am not sure whether or not she has had some visual impairment right eye, which may or may not be related to vascular supply. She has an abnormal carotid duplex examination with flow acceleration carotid bifurcation on the left estimated to be nearly 70%. In addition, there may also be some disease at the origin of the common carotid artery or the brachiocephalic artery with a slow flow in the common carotid artery on the right. Based upon the information that we have at this point in time, I do not recommend any surgical intervention. I think better clarification of her vascular disease could be achieved with a CT angiogram looking at her carotid arteries and arch vessels. I tried to describe this to the patient and discussed it with her, I am not sure that she understood. For now, recommendation is for CT scan arch and carotid arteries with contrast to more clearly delineate several vascular anatomy. Additional recommendations would be based upon the results of that study. Thank you for this consult. JUMA ASHLEY MD DR: RONAN/yossi JOB#: [id number] / [id number]
[2018-07-13] MEDS: ATORVASTATIN CALCIUM 40 MG TABLET. PO SCH (21:43)
[2018-07-13] MEDS: MEMANTINE 10 MG TABLET. PO SCH (21:44)
[2018-07-13] MEDS: ALPRAZolam 0.5 MG TABLET PO PRN (21:44)
[2018-07-14 03:27] VITALS: BP 132/51
[2018-07-14 04:16] LABS: BASO # 0.1 x10^3/uL (0.0-0.2); BASO % 1 % (0-3); EOS # 0.6 x10^3/uL (0.0-0.7); EOS % 11 % (0-3); HEMATOCRIT 29.2 % (36.0-47.0); HEMOGLOBIN 9.5 g/dL (12.0-15.5); LYMPH # 1.7 x10^3/uL (1.0-4.8); LYMPH % 31 % (24-48); MEAN CORPUSCULAR HEMOGLOBIN 31 pg (25-35); MEAN CORPUSCULAR HGB CONC 33 g/dL (31-37); MEAN CORPUSCULAR VOLUME 94 fL (79-100); MONO # 0.6 x10^3/uL (0.0-1.1); MONO % 11 % (0-9); NEUT # 2.5 x10^3uL (1.8-7.7); NEUT % 46 % (31-73); PLATELET COUNT 224 x10^3/uL (140-400); RED CELL DISTRIBUTION WIDTH 14.5 % (11.5-14.5); WHITE BLOOD COUNT 5.5 x10^3/uL (4.0-11.0)
[2018-07-14 04:54] LABS: ALBUMIN 2.9 g/dL (3.4-5.0); CALCIUM 8.5 mg/dL (8.5-10.1); CREATININE 0.7 mg/dL (0.6-1.0); POTASSIUM 3.6 mmol/L (3.5-5.1); TOTAL BILIRUBIN 0.2 mg/dL (0.2-1.0); TOTAL PROTEIN 5.8 g/dL (6.4-8.2)
[2018-07-14] MEDS: LEVOTHYROXINE 100 MCG TABLET PO SCH (06:02)
[2018-07-14] MEDS: PANTOPRAZOLE 40 MG TABLET.DR. PO SCH (06:02)
[2018-07-14] MEDS: ALBUTEROL SULFATE 2.5 MG/3 ML NEBU. NEB SCH ×4 (06:28→19:47)
[2018-07-14 07:00] VITALS: BP 126/45
--- NOTE | 2018-07-14 09:09 | RAD ---
CT chest without contrast dated 07/14/2018. Comparison made to CTA dated 07/13/2018. CLINICAL INDICATION: Follow-up pulmonary nodule. TECHNIQUE: Contiguous axial imaging of the chest performed without the administration of intravenous contrast. One or more of the following individualized dose reduction techniques were utilized for this examination: 1. Automated exposure control 2. Adjustment of the mA and/or kV according to patient size 3. Use of iterative reconstruction technique FINDINGS: Central airways are patent. Mild diffuse bronchial wall thickening. Areas of mucous plugging at both lung bases with some patchy and linear opacity in the lower lobes along the bronchovascular bundles. Moderate emphysema. Noncalcified pulmonary nodule in the left upper lobe centrally on image 34 measures 8 mm show somewhat lobular margins. There is also a noncalcified pulmonary nodule medially in the left upper lobe abutting the pleural margin, measuring 6 mm (image 31). There is some patchy groundglass opacity in the left upper lobe anteriorly. Heart size mildly enlarged. No pericardial effusion. Coronary artery calcifications. Borderline enlarged subcarinal lymph node measures 9 mm short axis. Borderline enlarged right paratracheal lymph node measures 7 mm short axis. No apparent hilar or axillary lymphadenopathy. Limited images of the upper abdomen unremarkable. Gallbladder surgically absent. Evidence of prior ventral hernia repair. Bone windows show no acute findings. Mild multilevel spondylosis. IMPRESSION: 1. There are 2 noncalcified pulmonary nodules in the left upper lobe that are indeterminate, largest of which measures 8 mm maximum dimension. Suggest follow-up imaging in 3 months to ensure stability. Alternatively, a PET scan may provide additional information. 2. Emphysema. 3. Diffuse bronchial wall thickening and mucous plugging with patchy and linear opacities along the bronchovascular bundles of the lower lobes. This is nonspecific and could be related to acute or chronic bronchial inflammatory process or chronic aspiration. 4. Coronary artery calcifications. 5. Borderline enlarged mediastinal lymph nodes, nonspecific. Electronically signed by: Jacob Jacobson MD (07/14/2018 9:06 AM) [id number]
[2018-07-14] MEDS: ANORO ELLIPTA INHALATION INH SCH (09:33)
[2018-07-14] MEDS: MAGNESIUM HYDROXIDE 2,400 MG/30 ML ORAL.SUSP. PO PRN (09:33)
[2018-07-14] MEDS: ISOSORBIDE MONONITRATE ER 30 MG TAB.ER.24H PO SCH (09:34)
[2018-07-14] MEDS: MULTIVITAMIN with MINERAL TABLET. PO SCH (09:34)
[2018-07-14] MEDS: FUROSEMIDE 20 MG TABLET PO SCH (09:34)
[2018-07-14] MEDS: CALCIUM CARBONATE 500 MG TABLET PO SCH ×3 (09:34→17:26)
[2018-07-14] MEDS: CHOLECALCIFEROL (VITAMIN D3) 1,000 UNIT TABLET PO SCH (09:34)
[2018-07-14] MEDS: PYRIDOXINE 50 MG TABLET. PO SCH (09:35)
[2018-07-14] MEDS: OMEGA-3 FATTY ACIDS/FISH OIL 1,000 MG CAPSULE. PO SCH (09:35)
[2018-07-14] MEDS: APIXABAN 5 MG TABLET. PO SCH ×2 (09:35→21:00)
[2018-07-14] MEDS: LISINOPRIL 10 MG TABLET PO SCH (09:35)
[2018-07-14] MEDS: METOPROLOL SUCC 24HR ER 25 MG TAB.ER.24H. PO SCH (09:35)
[2018-07-14] MEDS: ASPIRIN CHEWABLE 81 MG TABLET. PO SCH (09:36)
--- NOTE | 2018-07-14 11:02 | PDOC ---
PROGRESS NOTES Chief Complaint Chief Complaint Speech Difficulty Confusion CVA? Memory loss- Dementia? 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 History of Present Illness History of Present Illness Ms Jimenez is a 73 yo F who was admitted for confusion/difficulty speaking, PMH COPD and former smoker She was seen and examined in her room this morning, NAD less expressive aphasia, completed thoughts , not completely She states that when her anxiety increases, her ability to express her thoughts decreases Discussed her medications, treatments, and her concerns at length Discussed with RN 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 This is nonspecific and could be related to acute or chronic bronchial inflammatory process or chronic aspiration. CTA neck was reviewed with , occlusion vs a string sign -- Dx angiogram / if right CEA needed. UNDERSTANDS RISK OF CVA OR WITH HIGH RISK SURGERY complex decision making involved Vitals Vitals Vital Signs Date Time Temp Pulse Resp B/P (MAP) Pulse Ox O2 Delivery O2 Flow Rate FiO2 07/14/18 09:36 89 126/45 07/14/18 07:30 Nasal Cannula 2.0 07/14/18 07:00 98.5 18 99 98.5 Physical Exam General: Alert, Cooperative, No acute distress Heart: No murmurs, Other (prominent L sided carotid bruit) Lungs: Clear Abdomen: Normal bowel sounds, Soft, Other (supraumbilical ventral hernia) Extremities: No clubbing, No edema Skin: No rashes, No breakdown, No significant lesion Labs LABS CT chest without contrast dated 07/14/2018. Comparison made to CTA dated 07/13/2018. CLINICAL INDICATION: Follow-up pulmonary nodule. TECHNIQUE: Contiguous axial imaging of the chest performed without the administration of intravenous contrast. One or more of the following individualized dose reduction techniques were utilized for this examination: 1. Automated exposure control 2. Adjustment of the mA and/or kV according to patient size 3. Use of iterative reconstruction technique FINDINGS: Central airways are patent. Mild diffuse bronchial wall thickening. Areas of mucous plugging at both lung bases with some patchy and linear opacity in the lower lobes along the bronchovascular bundles. Moderate emphysema. Noncalcified pulmonary nodule in the left upper lobe centrally on image 34 measures 8 mm show somewhat lobular margins. There is also a noncalcified pulmonary nodule medially in the left upper lobe abutting the pleural margin, measuring 6 mm (image 31). There is some patchy groundglass opacity in the left upper lobe anteriorly. Heart size mildly enlarged. No pericardial effusion. Coronary artery calcifications. Borderline enlarged subcarinal lymph node measures 9 mm short axis. Borderline enlarged right paratracheal lymph node measures 7 mm short axis. No apparent hilar or axillary lymphadenopathy. Limited images of the upper abdomen unremarkable. Gallbladder surgically absent. Evidence of prior ventral hernia repair. Bone windows show no acute findings. Mild multilevel spondylosis. IMPRESSION: 1. There are 2 noncalcified pulmonary nodules in the left upper lobe that are indeterminate, largest of which measures 8 mm maximum dimension. Suggest follow-up imaging in 3 months to ensure stability. Alternatively, a PET scan may provide additional information. 2. Emphysema. 3. Diffuse bronchial wall thickening and mucous plugging with patchy and linear opacities along the bronchovascular bundles of the lower lobes. This is nonspecific and could be related to acute or chronic bronchial inflammatory process or chronic aspiration. 4. Coronary artery calcifications. 5. Borderline enlarged mediastinal lymph nodes, nonspecific. Electronically signed by: Jacob Jacobson MD (07/14/2018 9:06 AM) DICTATED AND SIGNED BY: PAKO GOOD MD DATE: 07/13/18 1104 CC: ZENY SZYMANSKI MD; LIZ CASTILLO III, DO; MARYANN MUNGUIA MD; DONTAE SÁNCHEZ MD; UNKNOWN PCP NAME ~ CT arteriogram of the carotid arteries, CT arteriogram of the brain. HISTORY: Carotid stenosis on Doppler CT arteriogram the carotid arteries CT arteriogram was done to evaluate the carotid arteries using 75 mL Isovue-370 contrast. Sagittal and coronal MIP images were reconstructed, three-dimensional images were reconstructed. There are emphysematous changes in the upper lobes of the lungs. There is linear atelectasis or infiltrate in the anterior left upper lobe. There is focal infiltrate or 8mm nodule on image #3 CT of the chest could be of benefit for complete evaluation. There is atherosclerotic change at the aortic arch. There is plaque in the innominate artery without severe stenosis. There is hypodense plaque in the right common carotid artery without severe stenosis. There is echogenic plaque in the more distal right common carotid artery with mild narrowing. There is extensive calcified plaque at the carotid bifurcation on the right side. There is occlusion or 99 percent stenosis of the right internal carotid artery with a very small vessel distal to the bifurcation on the right side. Vessels best seen on the MIP reconstructions. There are 2 normal vertebral arteries both of which supply flow to the basilar artery. There is calcified plaque in the left common carotid artery with mild narrowing. There is moderate narrowing of the distal left common carotid artery. There is extensive calcified plaque at the left carotid bifurcation. There is severe stenosis greater than 70 percent at the left internal carotid artery origin. There is degenerative disc disease and facet arthritis in the cervical spine. IMPRESSION: 1. Normal size vertebral arteries. 2. Occlusion or severe 99 percent stenosis of the right internal carotid artery with slow flow. 3. Severe greater than 70 percent stenosis at the left carotid bifurcation. 4. Left upper lobe pulmonary nodule CT chest recommended. Laboratory Tests Test 07/14/18 03:40 White Blood Count 5.5 x10^3/uL (4.0-11.0) Red Blood Count 3.10 x10^6/uL (3.50-5.40) Hemoglobin 9.5 g/dL (12.0-15.5) Hematocrit 29.2 % (36.0-47.0) Mean Corpuscular Volume 94 fL (79-100) Mean Corpuscular Hemoglobin 31 pg (25-35) Mean Corpuscular Hemoglobin Concent 33 g/dL (31-37) Red Cell Distribution Width 14.5 % (11.5-14.5) Platelet Count 224 x10^3/uL (140-400) Neutrophils (%) (Auto) 46 % (31-73) Lymphocytes (%) (Auto) 31 % (24-48) Monocytes (%) (Auto) 11 % (0-9) Eosinophils (%) (Auto) 11 % (0-3) Basophils (%) (Auto) 1 % (0-3) Neutrophils # (Auto) 2.5 x10^3uL (1.8-7.7) Lymphocytes # (Auto) 1.7 x10^3/uL (1.0-4.8) Monocytes # (Auto) 0.6 x10^3/uL (0.0-1.1) Eosinophils # (Auto) 0.6 x10^3/uL (0.0-0.7) Basophils # (Auto) 0.1 x10^3/uL (0.0-0.2) Sodium Level 144 mmol/L (136-145) Potassium Level 3.6 mmol/L (3.5-5.1) Chloride Level 106 mmol/L (98-107) Carbon Dioxide Level 31 mmol/L (21-32) Anion Gap 7 (6-14) Blood Urea Nitrogen 24 mg/dL (7-20) Creatinine 0.7 mg/dL (0.6-1.0) Estimated GFR (Cockcroft-Gault) 82.0 BUN/Creatinine Ratio 34 (6-20) Glucose Level 102 mg/dL (70-99) Calcium Level 8.5 mg/dL (8.5-10.1) Total Bilirubin 0.2 mg/dL (0.2-1.0) Aspartate Amino Transf (AST/SGOT) 23 U/L (15-37) Alanine Aminotransferase (ALT/SGPT) 21 U/L (14-59) Alkaline Phosphatase 65 U/L (46-116) Total Protein 5.8 g/dL (6.4-8.2) Albumin 2.9 g/dL (3.4-5.0) Albumin/Globulin Ratio 1.0 (1.0-1.7) Comment Review of Relevant I have reviewed the following items vidal (where applicable) has been applied. Labs Laboratory Tests Test 07/13/18 03:30 07/14/18 03:40 White Blood Count 6.4 x10^3/uL (4.0-11.0) 5.5 x10^3/uL (4.0-11.0) Red Blood Count 3.40 x10^6/uL (3.50-5.40) 3.10 x10^6/uL (3.50-5.40) Hemoglobin 10.3 g/dL (12.0-15.5) 9.5 g/dL (12.0-15.5) Hematocrit 32.0 % (36.0-47.0) 29.2 % (36.0-47.0) Mean Corpuscular Volume 94 fL (79-100) 94 fL (79-100) Mean Corpuscular Hemoglobin 30 pg (25-35) 31 pg (25-35) Mean Corpuscular Hemoglobin Concent 32 g/dL (31-37) 33 g/dL (31-37) Red Cell Distribution Width 14.7 % (11.5-14.5) 14.5 % (11.5-14.5) Platelet Count 261 x10^3/uL (140-400) 224 x10^3/uL (140-400) Neutrophils (%) (Auto) 53 % (31-73) 46 % (31-73) Lymphocytes (%) (Auto) 28 % (24-48) 31 % (24-48) Monocytes (%) (Auto) 9 % (0-9) 11 % (0-9) Eosinophils (%) (Auto) 10 % (0-3) 11 % (0-3) Basophils (%) (Auto) 1 % (0-3) 1 % (0-3) Neutrophils # (Auto) 3.3 x10^3uL (1.8-7.7) 2.5 x10^3uL (1.8-7.7) Lymphocytes # (Auto) 1.8 x10^3/uL (1.0-4.8) 1.7 x10^3/uL (1.0-4.8) Monocytes # (Auto) 0.6 x10^3/uL (0.0-1.1) 0.6 x10^3/uL (0.0-1.1) Eosinophils # (Auto) 0.6 x10^3/uL (0.0-0.7) 0.6 x10^3/uL (0.0-0.7) Basophils # (Auto) 0.1 x10^3/uL (0.0-0.2) 0.1 x10^3/uL (0.0-0.2) Sodium Level 148 mmol/L (136-145) 144 mmol/L (136-145) Potassium Level 4.4 mmol/L (3.5-5.1) 3.6 mmol/L (3.5-5.1) Chloride Level 109 mmol/L (98-107) 106 mmol/L (98-107) Carbon Dioxide Level 30 mmol/L (21-32) 31 mmol/L (21-32) Anion Gap 9 (6-14) 7 (6-14) Blood Urea Nitrogen 25 mg/dL (7-20) 24 mg/dL (7-20) Creatinine 0.8 mg/dL (0.6-1.0) 0.7 mg/dL (0.6-1.0) Estimated GFR (Cockcroft-Gault) 70.3 82.0 BUN/Creatinine Ratio 31 (6-20) 34 (6-20) Glucose Level 109 mg/dL (70-99) 102 mg/dL (70-99) Calcium Level 8.6 mg/dL (8.5-10.1) 8.5 mg/dL (8.5-10.1) Total Bilirubin 0.3 mg/dL (0.2-1.0) 0.2 mg/dL (0.2-1.0) Aspartate Amino Transf (AST/SGOT) 39 U/L (15-37) 23 U/L (15-37) Alanine Aminotransferase (ALT/SGPT) 26 U/L (14-59) 21 U/L (14-59) Alkaline Phosphatase 67 U/L (46-116) 65 U/L (46-116) Total Protein 6.1 g/dL (6.4-8.2) 5.8 g/dL (6.4-8.2) Albumin 2.9 g/dL (3.4-5.0) 2.9 g/dL (3.4-5.0) Albumin/Globulin Ratio 0.9 (1.0-1.7) 1.0 (1.0-1.7) Laboratory Tests Test 07/14/18 03:40 White Blood Count 5.5 x10^3/uL (4.0-11.0) Red Blood Count 3.10 x10^6/uL (3.50-5.40) Hemoglobin 9.5 g/dL (12.0-15.5) Hematocrit 29.2 % (36.0-47.0) Mean Corpuscular Volume 94 fL (79-100) Mean Corpuscular Hemoglobin 31 pg (25-35) Mean Corpuscular Hemoglobin Concent 33 g/dL (31-37) Red Cell Distribution Width 14.5 % (11.5-14.5) Platelet Count 224 x10^3/uL (140-400) Neutrophils (%) (Auto) 46 % (31-73) Lymphocytes (%) (Auto) 31 % (24-48) Monocytes (%) (Auto) 11 % (0-9) Eosinophils (%) (Auto) 11 % (0-3) Basophils (%) (Auto) 1 % (0-3) Neutrophils # (Auto) 2.5 x10^3uL (1.8-7.7) Lymphocytes # (Auto) 1.7 x10^3/uL (1.0-4.8) Monocytes # (Auto) 0.6 x10^3/uL (0.0-1.1) Eosinophils # (Auto) 0.6 x10^3/uL (0.0-0.7) Basophils # (Auto) 0.1 x10^3/uL (0.0-0.2) Sodium Level 144 mmol/L (136-145) Potassium Level 3.6 mmol/L (3.5-5.1) Chloride Level 106 mmol/L (98-107) Carbon Dioxide Level 31 mmol/L (21-32) Anion Gap 7 (6-14) Blood Urea Nitrogen 24 mg/dL (7-20) Creatinine 0.7 mg/dL (0.6-1.0) Estimated GFR (Cockcroft-Gault) 82.0 BUN/Creatinine Ratio 34 (6-20) Glucose Level 102 mg/dL (70-99) Calcium Level 8.5 mg/dL (8.5-10.1) Total Bilirubin 0.2 mg/dL (0.2-1.0) Aspartate Amino Transf (AST/SGOT) 23 U/L (15-37) Alanine Aminotransferase (ALT/SGPT) 21 U/L (14-59) Alkaline Phosphatase 65 U/L (46-116) Total Protein 5.8 g/dL (6.4-8.2) Albumin 2.9 g/dL (3.4-5.0) Albumin/Globulin Ratio 1.0 (1.0-1.7) Medications Current Medications Aspirin (Children'S Aspirin) 324 mg 1X ONCE PO Last administered on 07/10/18at 16:36; Start 07/10/18 at 15:45; Stop 07/10/18 at 16:30; Status DC Albuterol Sulfate (Ventolin Neb Soln) 2.5 mg PRN Q6HRS PRN INH SHORTNESS OF BREATH Last administered on 07/12/18at 13:21; Start 07/10/18 at 19:00 Alprazolam (Xanax) 0.75 mg PRN DAILY PRN PO ANXIETY / AGITATION Last administered on 07/13/18 21:44; Start 07/10/18 at 19:00 Apixaban (Eliquis) 5 mg BID PO Last administered on 07/14/18 09:35; Start 07/10 at 21:00 Aspirin (Children'S Aspirin) 81 mg DAILY PO Last administered on 07/14/18 09: 36; Start 07/11/18 at 09:00 Atorvastatin Calcium (Lipitor) 40 mg QHS PO Last administered on 07/13/18 21: 43; Start 07/10/18 at 21:00 Furosemide (Lasix) 10 mg DAILY PO Last administered on 07/14/18 09:34; Start 07/11/18 at 09:00 Isosorbide Mononitrate (Imdur) 30 mg DAILY PO Last administered on 07/14/18 09 :34; Start 07/11/18 at 09:00 Levothyroxine Sodium (Synthroid) 75 mcg DAILY07 PO Last administered on 06:15; Start 07/11/18 at 07:00; Stop 07/12/18 at 17:17; Status DC Lisinopril (Prinivil) 10 mg DAILY PO Last administered on 07/14/18 09:35; Start 07/11/18 at 09:00 Metoprolol Succinate (Toprol Xl) 25 mg DAILY PO Last administered on 07/14/18 09:35; Start 07/11/18 at 09:00 Nitroglycerin (Nitrostat) 0.4 mg PRN Q5MIN PRN SL CHEST PAIN; Start 07/10/18 at 19:00 Triamcinolone Acetonide (Kenalog) 1 jesu PRN BID PRN TP RASH; Start 07/10/18 at 19:00 Non-Formulary Medication (Alendronate Sodium (Fosamax)) 1 tab WEEKLY PO ; Start 07/17/18 at 09:00; Status UNV Calcium Carbonate/ Glycine (Oscal) 1,000 mg TIDAFTMEAL PO Last administered on 07/14/18 09:34; Start 07/11/18 at 09:00 Vitamin D (Vitamin D3) 2,000 unit DAILY PO Last administered on 07/14/18 09:34 ; Start 07/11/18 at 09:00 Diltiazem HCl (Cardizem 24hr Cd) 120 mg DAILY PO Last administered on 09:36; Start 07/11/18 at 09:00 Guaifenesin (Robitussin) 400 mg PRN BID PRN PO COUGH; Start 07/10/18 at 19:15 Memantine (Namenda) 10 mg DAILY PO ; Start 07/11/18 at 09:00; Stop 07/11/18 at 12: 59; Status DC Multivitamins (Thera M Plus) 1 tab DAILY PO Last administered on 07/14/18 09: 34; Start 07/11/18 at 09:00 Fish Oil (Fish Oil) 1,000 mg DAILY PO Last administered on 07/14/18 09:35; Start 07/11/18 at 09:00 Pantoprazole Sodium (Protonix) 40 mg DAILYAC PO Last administered on 07/14/18 06:02; Start 07/11/18 at 07:30 Non-Formulary Medication (Potassium Chloride ) 99 mg DAILY PO ; Start 07/11/18 at 09:00; Status UNV Pyridoxine HCl (Vitamin B-6) 200 mg DAILY PO Last administered on 07/14/18 09: 35; Start 07/11/18 at 09:00 Non-Formulary Medication (Ubidecarenone (Coenzyme Q10)) 10 mg DAILY PO ; Start 07/11/18 at 09:00; Status UNV Non-Formulary Medication 1 ea DAILY INH Last administered on 07/14/18 09:33; Start 07/11/18 at 09:00 Info (Anti-Coagulation Monitoring By Pharmacy) 1 each PRN DAILY PRN MC SEE COMMENTS Last administered on 07/13/18 12:38; Start 07/11/18 at 07:45 Acetaminophen (Tylenol) 650 mg PRN Q6HRS PRN PO TEMP > 100.4F; Start 07/11/18 at 08:45 Acetaminophen (Tylenol Supp) 650 mg PRN Q4HRS PRN CA TEMP > 100.4F; Start at 08:45 Memantine (Namenda) 10 mg QHS PO Last administered on 07/13/18 21:44; Start at 21:00 Magnesium Hydroxide (Milk Of Magnesia) 2,400 mg PRN DAILY PRN PO CONSTIPATION Last administered on 07/14/18at 09:33; Start 07/12/18 at 14:15 Albuterol Sulfate (Ventolin Neb Soln) 2.5 mg RTQID NEB Last administered on 03/24at 06:28; Start 07/12/18 at 20:00 Levothyroxine Sodium (Synthroid) 100 mcg DAILY07 PO Last administered on at 06:02; Start 07/13/18 at 07:00 Iohexol (Omnipaque 350 Mg/ml) 75 ml 1X ONCE IV Last administered on 07/13/18at 07:39; Start 07/13/18 at 07:15; Stop 07/13/18 at 07:16; Status DC Info (CONTRAST GIVEN -- Rx MONITORING) 1 each PRN DAILY PRN MC SEE COMMENTS; Start 07/13/18 at 07:15; Stop 07/15/18 at 07:14 Magnesium Hydroxide (Milk Of Magnesia) 2,400 mg 1X ONCE PO Last administered on 07/13/18at 12:36; Start 07/13/18 at 11:00; Stop 07/13/18 at 11:01; Status DC Active Scripts Active Reported Anoro Ellipta 62.5-25 Mcg Inh (Umeclidinium Brm/Vilanterol Tr) 1 Each Disk.w.dev 1 Each IH DAILY Triamcinolone Acetonide 0.1% Oint (Triamcinolone Acetonide) 15 Gm Oint...g. 1 Jesu TP PRN BID MIX WITH EUCERIN DIRECTED BY PHYSICIAN Synthroid (Levothyroxine Sodium) 75 Mcg Tablet 1 Tab PO DAILY B-6 (Pyridoxine HCl (Vitamin B6)) 200 Mg Tablet.er 200 Mg PO DAILY Proair Hfa Inhaler (Albuterol Sulfate) 8.5 Gm Hfa.aer.ad 2 Puff INH PRN Q6HRS PRN Potassium Chloride 20 Meq Tablet.er 99 Mg PO DAILY Protonix (Pantoprazole Sodium) 20 Mg Tablet.dr 40 Mg PO DAILY Fish Oil 1,000 mg Softgel (Spurger-3/Dha/Epa/Fish Oil) 1,000 Mg Capsule 1,000 Mg PO DAILY NITROGLYCERIN SubLingual (Nitroglycerin) 0.4 Mg Tab.subl 0.4 Mg SL PRN Q5MIN PRN Multivitamins (Multivitamin) 1 Each Tablet 1 Tab PO DAILY Metoprolol Succinate ( Xl ) (Metoprolol Succinate) 25 Mg Tab.er.24h 25 Mg PO DAILY Namenda (Memantine Hcl) 10 Mg Tablet 10 Mg PO DAILY Lisinopril 10 Mg Tablet 10 Mg PO DAILY Isosorbide Mononitrate Er (Isosorbide Mononitrate) 30 Mg Tab.er.24h 30 Mg PO DAILY Guaifenesin 400 Mg Tablet 400 Mg PO PRN BID Lasix (Furosemide) 20 Mg Tablet 10 Mg PO DAILY Eliquis (Apixaban) 5 Mg Tablet 5 Mg PO BID Cardizem Cd (Diltiazem Hcl) 180 Mg Cap.er.24h 120 Mg PO DAILY Coenzyme Q10 (Ubidecarenone) 10 Mg Capsule 10 Mg PO DAILY Vitamin D (Cholecalciferol (Vitamin D3)) 2,000 Unit Capsule 1 Cap PO DAILY Calcium Carbonate 600 Mg Tablet 1,200 Mg PO TID Lipitor (Atorvastatin Calcium) 40 Mg Tablet 1 Tab PO QHS Aspirin 81 Mg Tab.chew 1 Tab PO DAILY Xanax (Alprazolam) 0.5 Mg Tablet 0.75 Mg PO PRN DAILY PRN Fosamax (Alendronate Sodium) 70 Mg Tablet 1 Tab PO WEEKLY Proair Hfa Inhaler (Albuterol Sulfate) 8.5 Gm Hfa.aer.ad 1 Puff INH PRN Q6HRS PRN Vitals/I & O Vital Sign - Last 24 Hours 07/13/18 07/13/18 07/13/18 07/13/18 11:25 12:20 12:33 13:40 Temp 97.4 97.4 Pulse 52 Resp 20 B/P (MAP) 169/86 (113) 179/74 (109) 140/58 (85) Pulse Ox 98 97 O2 Delivery Nasal Cannula Nasal Cannula O2 Flow Rate 2.0 2.0 07/13/18 07/13/18 07/13/18 07/13/18 15:00 15:32 19:00 19:50 Temp 97.6 97.6 97.6 97.6 Pulse 58 61 Resp 20 18 B/P (MAP) 134/60 (84) 132/66 (88) Pulse Ox 95 98 98 O2 Delivery Room Air Room Air Nasal Cannula Nasal Cannula O2 Flow Rate 2.0 2.0 07/13/18 07/13/18 07/14/18 07/14/18 20:51 23:06 03:27 06:28 Temp 98.3 98.1 98.3 98.1 Pulse 60 67 Resp 16 16 B/P (MAP) 122/59 (80) 132/51 (78) Pulse Ox 99 98 100 99 O2 Delivery Nasal Cannula Nasal Cannula Nasal Cannula Nasal Cannula O2 Flow Rate 2.0 2.0 2.0 2.0 07/14/18 07/14/18 07/14/18 07/14/18 07:00 07:30 09:34 09:35 Temp 98.5 98.5 Pulse 89 89 89 Resp 18 B/P (MAP) 126/45 (72) 126/45 126/45 Pulse Ox 99 O2 Delivery Nasal Cannula Nasal Cannula O2 Flow Rate 2.0 2.0 07/14/18 07/14/18 09:35 09:36 Pulse 89 89 B/P (MAP) 126/45 126/45 Intake and Output 07/13/18 07/13/18 07/14/18 14:59 22:59 06:59 Intake Total 1360 ml 0 ml Balance 1360 ml 0 ml Nutrition Consultation Dietary Evaluation: Recommendations by RD: Protein supplementation Comments: Continue w/regular diet as ordered to promote continued good PO intake Will add Ensure BID (strawberry) Expected Outcomes/Goals: PO intake to meet >75% est needs Malnutrition Findings: Body Fat Depletion (Non Severe: Mild Depletion Weight Status: Appropriate RUBEN GARCIA MD Jul 14, 2018 11:02
[2018-07-14 11:12] VITALS: BP 157/55
--- NOTE | 2018-07-14 11:35 | PDOC ---
PROGRESS NOTES Subjective Subjective Pt seen and examined today we discussed her carotid stenosis and recent history She apparently had sudden complete vision loss right eye in April (less than 3 months ago) CTA neck was reviewed with IR today --> ? if this is an occlusion vs a string sign -- will need Dx angiogram to figure out if right CEA needed. IR will perform this tomorrow Objective Objective Vital Signs Date Time Temp Pulse Resp B/P (MAP) Pulse Ox O2 Delivery O2 Flow Rate FiO2 07/14/18 11:12 98.4 70 18 157/55 (89) 95 Nasal Cannula 2.0 98.4 Intake and Output 07/14/18 07:00 Intake Total 1360 ml Balance 1360 ml Intake Oral 1360 ml # Voids 4 Comment Review of Relevant I have reviewed the following items vidal (where applicable) has been applied. Labs Laboratory Tests Test 07/13/18 03:30 07/14/18 03:40 White Blood Count 6.4 x10^3/uL (4.0-11.0) 5.5 x10^3/uL (4.0-11.0) Red Blood Count 3.40 x10^6/uL (3.50-5.40) 3.10 x10^6/uL (3.50-5.40) Hemoglobin 10.3 g/dL (12.0-15.5) 9.5 g/dL (12.0-15.5) Hematocrit 32.0 % (36.0-47.0) 29.2 % (36.0-47.0) Mean Corpuscular Volume 94 fL (79-100) 94 fL (79-100) Mean Corpuscular Hemoglobin 30 pg (25-35) 31 pg (25-35) Mean Corpuscular Hemoglobin Concent 32 g/dL (31-37) 33 g/dL (31-37) Red Cell Distribution Width 14.7 % (11.5-14.5) 14.5 % (11.5-14.5) Platelet Count 261 x10^3/uL (140-400) 224 x10^3/uL (140-400) Neutrophils (%) (Auto) 53 % (31-73) 46 % (31-73) Lymphocytes (%) (Auto) 28 % (24-48) 31 % (24-48) Monocytes (%) (Auto) 9 % (0-9) 11 % (0-9) Eosinophils (%) (Auto) 10 % (0-3) 11 % (0-3) Basophils (%) (Auto) 1 % (0-3) 1 % (0-3) Neutrophils # (Auto) 3.3 x10^3uL (1.8-7.7) 2.5 x10^3uL (1.8-7.7) Lymphocytes # (Auto) 1.8 x10^3/uL (1.0-4.8) 1.7 x10^3/uL (1.0-4.8) Monocytes # (Auto) 0.6 x10^3/uL (0.0-1.1) 0.6 x10^3/uL (0.0-1.1) Eosinophils # (Auto) 0.6 x10^3/uL (0.0-0.7) 0.6 x10^3/uL (0.0-0.7) Basophils # (Auto) 0.1 x10^3/uL (0.0-0.2) 0.1 x10^3/uL (0.0-0.2) Sodium Level 148 mmol/L (136-145) 144 mmol/L (136-145) Potassium Level 4.4 mmol/L (3.5-5.1) 3.6 mmol/L (3.5-5.1) Chloride Level 109 mmol/L (98-107) 106 mmol/L (98-107) Carbon Dioxide Level 30 mmol/L (21-32) 31 mmol/L (21-32) Anion Gap 9 (6-14) 7 (6-14) Blood Urea Nitrogen 25 mg/dL (7-20) 24 mg/dL (7-20) Creatinine 0.8 mg/dL (0.6-1.0) 0.7 mg/dL (0.6-1.0) Estimated GFR (Cockcroft-Gault) 70.3 82.0 BUN/Creatinine Ratio 31 (6-20) 34 (6-20) Glucose Level 109 mg/dL (70-99) 102 mg/dL (70-99) Calcium Level 8.6 mg/dL (8.5-10.1) 8.5 mg/dL (8.5-10.1) Total Bilirubin 0.3 mg/dL (0.2-1.0) 0.2 mg/dL (0.2-1.0) Aspartate Amino Transf (AST/SGOT) 39 U/L (15-37) 23 U/L (15-37) Alanine Aminotransferase (ALT/SGPT) 26 U/L (14-59) 21 U/L (14-59) Alkaline Phosphatase 67 U/L (46-116) 65 U/L (46-116) Total Protein 6.1 g/dL (6.4-8.2) 5.8 g/dL (6.4-8.2) Albumin 2.9 g/dL (3.4-5.0) 2.9 g/dL (3.4-5.0) Albumin/Globulin Ratio 0.9 (1.0-1.7) 1.0 (1.0-1.7) Laboratory Tests Test 07/14/18 03:40 White Blood Count 5.5 x10^3/uL (4.0-11.0) Red Blood Count 3.10 x10^6/uL (3.50-5.40) Hemoglobin 9.5 g/dL (12.0-15.5) Hematocrit 29.2 % (36.0-47.0) Mean Corpuscular Volume 94 fL (79-100) Mean Corpuscular Hemoglobin 31 pg (25-35) Mean Corpuscular Hemoglobin Concent 33 g/dL (31-37) Red Cell Distribution Width 14.5 % (11.5-14.5) Platelet Count 224 x10^3/uL (140-400) Neutrophils (%) (Auto) 46 % (31-73) Lymphocytes (%) (Auto) 31 % (24-48) Monocytes (%) (Auto) 11 % (0-9) Eosinophils (%) (Auto) 11 % (0-3) Basophils (%) (Auto) 1 % (0-3) Neutrophils # (Auto) 2.5 x10^3uL (1.8-7.7) Lymphocytes # (Auto) 1.7 x10^3/uL (1.0-4.8) Monocytes # (Auto) 0.6 x10^3/uL (0.0-1.1) Eosinophils # (Auto) 0.6 x10^3/uL (0.0-0.7) Basophils # (Auto) 0.1 x10^3/uL (0.0-0.2) Sodium Level 144 mmol/L (136-145) Potassium Level 3.6 mmol/L (3.5-5.1) Chloride Level 106 mmol/L (98-107) Carbon Dioxide Level 31 mmol/L (21-32) Anion Gap 7 (6-14) Blood Urea Nitrogen 24 mg/dL (7-20) Creatinine 0.7 mg/dL (0.6-1.0) Estimated GFR (Cockcroft-Gault) 82.0 BUN/Creatinine Ratio 34 (6-20) Glucose Level 102 mg/dL (70-99) Calcium Level 8.5 mg/dL (8.5-10.1) Total Bilirubin 0.2 mg/dL (0.2-1.0) Aspartate Amino Transf (AST/SGOT) 23 U/L (15-37) Alanine Aminotransferase (ALT/SGPT) 21 U/L (14-59) Alkaline Phosphatase 65 U/L (46-116) Total Protein 5.8 g/dL (6.4-8.2) Albumin 2.9 g/dL (3.4-5.0) Albumin/Globulin Ratio 1.0 (1.0-1.7) Medications Current Medications Aspirin (Children'S Aspirin) 324 mg 1X ONCE PO Last administered on 07/10/18 16:36; Start 07/10/18 at 15:45; Stop 07/10/18 at 16:30; Status DC Albuterol Sulfate (Ventolin Neb Soln) 2.5 mg PRN Q6HRS PRN INH SHORTNESS OF BREATH Last administered on 07/12/18 13:21; Start 07/10/18 at 19:00 Alprazolam (Xanax) 0.75 mg PRN DAILY PRN PO ANXIETY / AGITATION Last administered on 07/13/18 21:44; Start 07/10/18 at 19:00 Apixaban (Eliquis) 5 mg BID PO Last administered on 07/14/18 09:35; Start 07/10 at 21:00 Aspirin (Children'S Aspirin) 81 mg DAILY PO Last administered on 07/14/18 09: 36; Start 07/11/18 at 09:00 Atorvastatin Calcium (Lipitor) 40 mg QHS PO Last administered on 07/13/18 21: 43; Start 07/10/18 at 21:00 Furosemide (Lasix) 10 mg DAILY PO Last administered on 07/14/18 09:34; Start 07/11/18 at 09:00 Isosorbide Mononitrate (Imdur) 30 mg DAILY PO Last administered on 07/14/18 09 :34; Start 07/11/18 at 09:00 Levothyroxine Sodium (Synthroid) 75 mcg DAILY07 PO Last administered on 06:15; Start 07/11/18 at 07:00; Stop 07/12/18 at 17:17; Status DC Lisinopril (Prinivil) 10 mg DAILY PO Last administered on 07/14/18 09:35; Start 07/11/18 at 09:00 Metoprolol Succinate (Toprol Xl) 25 mg DAILY PO Last administered on 07/14/18 09:35; Start 07/11/18 at 09:00 Nitroglycerin (Nitrostat) 0.4 mg PRN Q5MIN PRN SL CHEST PAIN; Start 07/10/18 at 19:00 Triamcinolone Acetonide (Kenalog) 1 mayank PRN BID PRN TP RASH; Start 07/10/18 at 19:00 Non-Formulary Medication (Alendronate Sodium (Fosamax)) 1 tab WEEKLY PO ; Start 07/17/18 at 09:00; Status UNV Calcium Carbonate/ Glycine (Oscal) 1,000 mg TIDAFTMEAL PO Last administered on 07/14/18 09:34; Start 07/11/18 at 09:00 Vitamin D (Vitamin D3) 2,000 unit DAILY PO Last administered on 07/14/18 09:34 ; Start 07/11/18 at 09:00 Diltiazem HCl (Cardizem 24hr Cd) 120 mg DAILY PO Last administered on 09:36; Start 07/11/18 at 09:00 Guaifenesin (Robitussin) 400 mg PRN BID PRN PO COUGH; Start 07/10/18 at 19:15 Memantine (Namenda) 10 mg DAILY PO ; Start 07/11/18 at 09:00; Stop 07/11/18 at 12: 59; Status DC Multivitamins (Thera M Plus) 1 tab DAILY PO Last administered on 07/14/18 09: 34; Start 07/11/18 at 09:00 Fish Oil (Fish Oil) 1,000 mg DAILY PO Last administered on 07/14/18 09:35; Start 07/11/18 at 09:00 Pantoprazole Sodium (Protonix) 40 mg DAILYAC PO Last administered on 07/14/18 06:02; Start 07/11/18 at 07:30 Non-Formulary Medication (Potassium Chloride ) 99 mg DAILY PO ; Start 07/11/18 at 09:00; Status UNV Pyridoxine HCl (Vitamin B-6) 200 mg DAILY PO Last administered on 07/14/18 09: 35; Start 07/11/18 at 09:00 Non-Formulary Medication (Ubidecarenone (Coenzyme Q10)) 10 mg DAILY PO ; Start 07/11/18 at 09:00; Status UNV Non-Formulary Medication 1 ea DAILY INH Last administered on 07/14/18 09:33; Start 07/11/18 at 09:00 Info (Anti-Coagulation Monitoring By Pharmacy) 1 each PRN DAILY PRN MC SEE COMMENTS Last administered on 07/13/18 12:38; Start 07/11/18 at 07:45 Acetaminophen (Tylenol) 650 mg PRN Q6HRS PRN PO TEMP > 100.4F; Start 07/11/18 at 08:45 Acetaminophen (Tylenol Supp) 650 mg PRN Q4HRS PRN CT TEMP > 100.4F; Start at 08:45 Memantine (Namenda) 10 mg QHS PO Last administered on 07/13/18 21:44; Start at 21:00 Magnesium Hydroxide (Milk Of Magnesia) 2,400 mg PRN DAILY PRN PO CONSTIPATION Last administered on 07/14/18 09:33; Start 07/12/18 at 14:15 Albuterol Sulfate (Ventolin Neb Soln) 2.5 mg RTQID NEB Last administered on 06:28; Start 07/12/18 at 20:00 Levothyroxine Sodium (Synthroid) 100 mcg DAILY07 PO Last administered on 3/11/ 19at 06:02; Start 07/13/18 at 07:00 Iohexol (Omnipaque 350 Mg/ml) 75 ml 1X ONCE IV Last administered on 07/13/18at 07:39; Start 07/13/18 at 07:15; Stop 07/13/18 at 07:16; Status DC Info (CONTRAST GIVEN -- Rx MONITORING) 1 each PRN DAILY PRN MC SEE COMMENTS; Start 07/13/18 at 07:15; Stop 07/15/18 at 07:14 Magnesium Hydroxide (Milk Of Magnesia) 2,400 mg 1X ONCE PO Last administered on 07/13/18at 12:36; Start 07/13/18 at 11:00; Stop 07/13/18 at 11:01; Status DC Active Scripts Active Reported Anoro Ellipta 62.5-25 Mcg Inh (Umeclidinium Brm/Vilanterol Tr) 1 Each Disk.w.dev 1 Each IH DAILY Triamcinolone Acetonide 0.1% Oint (Triamcinolone Acetonide) 15 Gm Oint...g. 1 Mayank TP PRN BID MIX WITH EUCERIN DIRECTED BY PHYSICIAN Synthroid (Levothyroxine Sodium) 75 Mcg Tablet 1 Tab PO DAILY B-6 (Pyridoxine HCl (Vitamin B6)) 200 Mg Tablet.er 200 Mg PO DAILY Proair Hfa Inhaler (Albuterol Sulfate) 8.5 Gm Hfa.aer.ad 2 Puff INH PRN Q6HRS PRN Potassium Chloride 20 Meq Tablet.er 99 Mg PO DAILY Protonix (Pantoprazole Sodium) 20 Mg Tablet.dr 40 Mg PO DAILY Fish Oil 1,000 mg Softgel (Gum Spring-3/Dha/Epa/Fish Oil) 1,000 Mg Capsule 1,000 Mg PO DAILY NITROGLYCERIN SubLingual (Nitroglycerin) 0.4 Mg Tab.subl 0.4 Mg SL PRN Q5MIN PRN Multivitamins (Multivitamin) 1 Each Tablet 1 Tab PO DAILY Metoprolol Succinate ( Xl ) (Metoprolol Succinate) 25 Mg Tab.er.24h 25 Mg PO DAILY Namenda (Memantine Hcl) 10 Mg Tablet 10 Mg PO DAILY Lisinopril 10 Mg Tablet 10 Mg PO DAILY Isosorbide Mononitrate Er (Isosorbide Mononitrate) 30 Mg Tab.er.24h 30 Mg PO DAILY Guaifenesin 400 Mg Tablet 400 Mg PO PRN BID Lasix (Furosemide) 20 Mg Tablet 10 Mg PO DAILY Eliquis (Apixaban) 5 Mg Tablet 5 Mg PO BID Cardizem Cd (Diltiazem Hcl) 180 Mg Cap.er.24h 120 Mg PO DAILY Coenzyme Q10 (Ubidecarenone) 10 Mg Capsule 10 Mg PO DAILY Vitamin D (Cholecalciferol (Vitamin D3)) 2,000 Unit Capsule 1 Cap PO DAILY Calcium Carbonate 600 Mg Tablet 1,200 Mg PO TID Lipitor (Atorvastatin Calcium) 40 Mg Tablet 1 Tab PO QHS Aspirin 81 Mg Tab.chew 1 Tab PO DAILY Xanax (Alprazolam) 0.5 Mg Tablet 0.75 Mg PO PRN DAILY PRN Fosamax (Alendronate Sodium) 70 Mg Tablet 1 Tab PO WEEKLY Proair Hfa Inhaler (Albuterol Sulfate) 8.5 Gm Hfa.aer.ad 1 Puff INH PRN Q6HRS PRN Vitals/I & O Vital Sign - Last 24 Hours 07/13/18 07/13/18 07/13/18 07/13/18 12:20 12:33 13:40 15:00 Temp 97.6 97.6 Pulse 58 Resp 20 B/P (MAP) 179/74 (109) 140/58 (85) 134/60 (84) Pulse Ox 97 95 O2 Delivery Nasal Cannula Room Air O2 Flow Rate 2.0 07/13/18 07/13/18 07/13/18 07/13/18 15:32 19:00 19:50 20:51 Temp 97.6 97.6 Pulse 61 Resp 18 B/P (MAP) 132/66 (88) Pulse Ox 98 98 99 O2 Delivery Room Air Nasal Cannula Nasal Cannula Nasal Cannula O2 Flow Rate 2.0 2.0 2.0 07/13/18 07/14/18 07/14/18 07/14/18 23:06 03:27 06:28 07:00 Temp 98.3 98.1 98.5 98.3 98.1 98.5 Pulse 60 67 89 Resp 16 16 18 B/P (MAP) 122/59 (80) 132/51 (78) 126/45 (72) Pulse Ox 98 100 99 99 O2 Delivery Nasal Cannula Nasal Cannula Nasal Cannula Nasal Cannula O2 Flow Rate 2.0 2.0 2.0 2.0 07/14/18 07/14/18 07/14/18 07/14/18 07:30 09:34 09:35 09:35 Pulse 89 89 89 B/P (MAP) 126/45 126/45 126/45 O2 Delivery Nasal Cannula O2 Flow Rate 2.0 07/14/18 07/14/18 09:36 11:12 Temp 98.4 98.4 Pulse 89 70 Resp 18 B/P (MAP) 126/45 157/55 (89) Pulse Ox 95 O2 Delivery Nasal Cannula O2 Flow Rate 2.0 Intake and Output 07/13/18 07/13/18 07/14/18 15:00 23:00 07:00 Intake Total 1360 ml 0 ml Balance 1360 ml 0 ml DANY NEGRON MD Jul 14, 2018 11:35
--- NOTE | 2018-07-14 12:16 | CONS ---
DATE OF CONSULTATION: ATTENDING PHYSICIAN: Dr. Gao. REASON FOR CONSULTATION: Abnormal CT chest with lung nodule. HISTORY OF PRESENT ILLNESS: The patient is a 73-year-old who has history of chronic dementia, history of bilateral carotid artery stenosis, history of secondary pulmonary hypertension. The patient was hospitalized for symptoms suggesting possible TIA. However, the workup revealed a CTA neck, which showed a possible nodule in the left lung. As a result, noncontrast CT chest was performed, which was reviewed by me. The patient has evidence of parenchymal scarring in the left upper lobe. There is an 8 mm somewhat irregular nodule in the left upper lobe and another 6 mm nodule in the same lobe. There is evidence of COPD. There is some mild mucus plug in the left lower lobe. As a result, I have been asked to see her for further evaluation. The patient states she has no chronic shortness of breath. Denies any cough, fever, chills, no chest pains. She has some subjective weight loss. She is not eating well; however, now, she is on Meals on Wheels and states helping her appetite. She has no hemoptysis, no chest pains. No focal edema. PAST MEDICAL HISTORY: Significant for history of dementia, history of COPD, smoked since age 13 and quit 6 years ago. PAST SURGICAL HISTORY: No recent surgeries. FAMILY HISTORY: Coronary artery disease. ALLERGIES: None. SOCIAL HISTORY: Smoked since age 13 until 6 years ago. REVIEW OF SYSTEMS: A 10-point system obtained. She is not the best historian. Pertinent positives discussed in my history of present illness. MEDICATIONS: All reviewed as listed in the MRAD. PHYSICAL EXAMINATION: VITAL SIGNS: Reviewed. Pulse ox 95% on 2 liters. NECK: Supple. LUNGS: Clear. CARDIOVASCULAR: Regular rate and rhythm. ABDOMEN: Soft, nontender. EXTREMITIES: No pitting edema. LABORATORY DATA: Reviewed. White cell count 5.5, hemoglobin 9.5 and platelets are 224. ABGs with a pH of 7.59, pCO2 of 24 and pO2 of 90. IMPRESSION: 1. Abnormal CT chest with two tiny nodules, 8 mm and 6 mm in the left upper lobe along with parenchymal scarring and less likely nonmalignant. We will need to follow another scan in 4 months due to long history of tobacco use. 2. Oxygen dependent chronic respiratory failure secondary to chronic obstructive pulmonary disease. 3. Secondary pulmonary hypertension. RECOMMENDATIONS: 1. From a pulmonary standpoint, she is okay to discharge on oxygen. 2. Repeat CT chest in 4 months. I have discussed with RN to keep a followup with me in the office. 3. Discussed with RN. AYESHA BURT MD DR: OSCAR/yossi JOB#: [id number] / [id number]
--- NOTE | 2018-07-14 12:26 | NUR ---
SS following for discharge planning. SS met with pt in room to discuss discharge planning. As observed, pt was alert and oriented times four. Pt is from home alone and currently on room air. Pt reported that she has several friends that come aid her daily. She reported that she also has Meals on Wheels at home. Pt reported that she does not want to go to a facility. SS discussed home healthcare with pt. Pt reported having home healthcare in the past and reported that she does not want home healthcare. She reported that she will not abide by the homebound status and reported that she "does not want to be tied down." Pt reported that her friends drive her everywhere and she is very proactive with her [employer] study. Pt reported needing no services at this time.
[2018-07-14 14:22] VITALS: BP 123/54
[2018-07-14] MEDS: ANTI-COAG MONITOR BY PHARMACY. MC PRN (15:29)
[2018-07-14] MEDS ORDERED: ALPR0.5T6 PO (15:55)
[2018-07-14] MEDS: ALPRAZolam 0.25 MG TABLET PO PRN (17:26)
--- NOTE | 2018-07-14 17:59 | PDOC2 ---
NEUROLOGY CONSULT Date of Admission Date of Admission DATE: 07/14/18 TIME: 17:43 Reason for Consult Reason for Consult: IMPRESSION: Chronic dementia, most likely a frontotemporal type given the language difficulties. Elevated TSH Carotid artery stenosis, bilaterally. Right eye vision loss x 3 months. Pulmonary hypertension and pulmonic valve regurgitation. COPD. Pulmonary nodules. Former smoker x 53 years. RECOMMENDATIONS/PLAN: On increased Synthroid dose Cardiac and vascular consultations appreciated She is on Eliquis and aspirin already Consulted Vascular Surgery. Placement. Patient stated wanted to protect her left eye by surgery since already loss vision in right eye. PAST MEDICAL AND SURGICAL HISTORY: COPD and hernia repair, dementia. ALLERGIES: NKDA. FAMILY HISTORY: Coronary artery disease. SOCIAL HISTORY: She stated she lived at home alone for about 23 years. She smoked 1 pack a day from age 14 to 67. She quit smoking 6 years ago. No drinking or drugs. MEDICATIONS: See MAR. MEDICATIONS: Refer to [facility] REVIEW OF SYSTEMS: Constitutional: No malnutrition, weight loss, cachexia. Head: No traumatic brain or head injury. Skin: No edema, or rash. Ear: No infection. Eyes: Right eye vision loss. Nose: No bleeding or purulent discharges. Hearing: Hearing loss. Neck: No injury. Breast: No history of cancer, masses, or discharges. Cardiac: HTN. CAD. Pulmonary: COPD. GI: No GI Ulcer, GI bleeding Urinary/genital: UTI. Endocrine: No cousin face, craniofacial dysmorphism, polydactyly. Skeletomuscular: No muscular atrophy, deformity. Neurological: see HP. Psychiatric: Denies drug use/abuse. Otherwise, not [id number] review of systems. PHYSICAL EXAMINATION: General appearance in subacute distress. HEENT: Normocephalic and nontraumatic. Eyes, nose, ears, and throat are unremarkable. Hearing decrease. Neck is supple. No lymphadenopathy. Bruits are heard over the carotid artery. No Crepitus. Cardiovascular: S1, S2, regular rate and rhythm. Pulmonary: Clear to auscultation bilaterally. Abdomen: Bowel sounds are positive. Abdomen is soft, nontender, and nondistended. Extremities: No rash, lesions, or edema. No restriction of range of motion NEUROLOGICAL EXAMINATION: Awake. Oriented partially to time, place but knew person. PERRL. EOMI. CN: no focal findings. Muscle tone: within normal. Muscle strength: 4+ DTR: 2 Plantar reflex: Neutral response bilaterally Gait: not examined in bed. Sensory exam: no abnormal findings. No cerebellar signs elicited. F-T-N test fine. Current Medications Current Medications Current Medications Aspirin (Children'S Aspirin) 324 mg 1X ONCE PO Last administered on 07/10/18 16:36; Start 07/10/18 at 15:45; Stop 07/10/18 at 16:30; Status DC Albuterol Sulfate (Ventolin Neb Soln) 2.5 mg PRN Q6HRS PRN INH SHORTNESS OF BREATH Last administered on 07/12/18 13:21; Start 07/10/18 at 19:00 Alprazolam (Xanax) 0.75 mg PRN DAILY PRN PO ANXIETY / AGITATION Last administered on 07/13/18 21:44; Start 07/10/18 at 19:00 Apixaban (Eliquis) 5 mg BID PO Last administered on 07/14/18 09:35; Start 07/10 at 21:00 Aspirin (Children'S Aspirin) 81 mg DAILY PO Last administered on 07/14/18 09: 36; Start 07/11/18 at 09:00 Atorvastatin Calcium (Lipitor) 40 mg QHS PO Last administered on 07/13/18 21: 43; Start 07/10/18 at 21:00 Furosemide (Lasix) 10 mg DAILY PO Last administered on 07/14/18 09:34; Start 07/11/18 at 09:00 Isosorbide Mononitrate (Imdur) 30 mg DAILY PO Last administered on 07/14/18 09 :34; Start 07/11/18 at 09:00 Levothyroxine Sodium (Synthroid) 75 mcg DAILY07 PO Last administered on 06:15; Start 07/11/18 at 07:00; Stop 07/12/18 at 17:17; Status DC Lisinopril (Prinivil) 10 mg DAILY PO Last administered on 07/14/18 09:35; Start 07/11/18 at 09:00 Metoprolol Succinate (Toprol Xl) 25 mg DAILY PO Last administered on 07/14/18 09:35; Start 07/11/18 at 09:00 Nitroglycerin (Nitrostat) 0.4 mg PRN Q5MIN PRN SL CHEST PAIN; Start 07/10/18 at 19:00 Triamcinolone Acetonide (Kenalog) 1 mayank PRN BID PRN TP RASH; Start 07/10/18 at 19:00 Non-Formulary Medication (Alendronate Sodium (Fosamax)) 1 tab WEEKLY PO ; Start 07/17/18 at 09:00; Status UNV Calcium Carbonate/ Glycine (Oscal) 1,000 mg TIDAFTMEAL PO Last administered on 07/14/18 17:26; Start 07/11/18 at 09:00 Vitamin D (Vitamin D3) 2,000 unit DAILY PO Last administered on 07/14/18 09:34 ; Start 07/11/18 at 09:00 Diltiazem HCl (Cardizem 24hr Cd) 120 mg DAILY PO Last administered on 09:36; Start 07/11/18 at 09:00 Guaifenesin (Robitussin) 400 mg PRN BID PRN PO COUGH; Start 07/10/18 at 19:15 Memantine (Namenda) 10 mg DAILY PO ; Start 07/11/18 at 09:00; Stop 07/11/18 at 12: 59; Status DC Multivitamins (Thera M Plus) 1 tab DAILY PO Last administered on 07/14/18 09: 34; Start 07/11/18 at 09:00 Fish Oil (Fish Oil) 1,000 mg DAILY PO Last administered on 07/14/18 09:35; Start 07/11/18 at 09:00 Pantoprazole Sodium (Protonix) 40 mg DAILYAC PO Last administered on 07/14/18at 06:02; Start 07/11/18 at 07:30 Non-Formulary Medication (Potassium Chloride ) 99 mg DAILY PO ; Start 07/11/18 at 09:00; Status UNV Pyridoxine HCl (Vitamin B-6) 200 mg DAILY PO Last administered on 07/14/18 09: 35; Start 07/11/18 at 09:00 Non-Formulary Medication (Ubidecarenone (Coenzyme Q10)) 10 mg DAILY PO ; Start 07/11/18 at 09:00; Status UNV Non-Formulary Medication 1 ea DAILY INH Last administered on 07/14/18at 09:33; Start 07/11/18 at 09:00 Info (Anti-Coagulation Monitoring By Pharmacy) 1 each PRN DAILY PRN MC SEE COMMENTS Last administered on 07/14/18at 15:29; Start 07/11/18 at 07:45 Acetaminophen (Tylenol) 650 mg PRN Q6HRS PRN PO TEMP > 100.4F; Start 07/11/18 at 08:45 Acetaminophen (Tylenol Supp) 650 mg PRN Q4HRS PRN VT TEMP > 100.4F; Start at 08:45 Memantine (Namenda) 10 mg QHS PO Last administered on 07/13/18 21:44; Start at 21:00 Magnesium Hydroxide (Milk Of Magnesia) 2,400 mg PRN DAILY PRN PO CONSTIPATION Last administered on 07/14/18at 09:33; Start 07/12/18 at 14:15 Albuterol Sulfate (Ventolin Neb Soln) 2.5 mg RTQID NEB Last administered on 03/24at 17:01; Start 07/12/18 at 20:00 Levothyroxine Sodium (Synthroid) 100 mcg DAILY07 PO Last administered on at 06:02; Start 07/13/18 at 07:00 Iohexol (Omnipaque 350 Mg/ml) 75 ml 1X ONCE IV Last administered on 07/13/18at 07:39; Start 07/13/18 at 07:15; Stop 07/13/18 at 07:16; Status DC Info (CONTRAST GIVEN -- Rx MONITORING) 1 each PRN DAILY PRN MC SEE COMMENTS; Start 07/13/18 at 07:15; Stop 07/15/18 at 07:14 Magnesium Hydroxide (Milk Of Magnesia) 2,400 mg 1X ONCE PO Last administered on 07/13/18at 12:36; Start 07/13/18 at 11:00; Stop 07/13/18 at 11:01; Status DC Alprazolam (Xanax) 0.25 mg PRN Q8HRS PRN PO ANXIETY / AGITATION Last administered on 07/14/18at 17:26; Start 07/14/18 at 17:15 Active Scripts Active Reported Alprazolam 0.5 Mg Tablet 0.5 Mg PO PRN DAILY PRN Anoro Ellipta 62.5-25 Mcg Inh (Umeclidinium Brm/Vilanterol Tr) 1 Each Disk.w.dev 1 Each IH DAILY Triamcinolone Acetonide 0.1% Oint (Triamcinolone Acetonide) 15 Gm Oint...g. 1 Mayank TP PRN BID MIX WITH EUCERIN DIRECTED BY PHYSICIAN Synthroid (Levothyroxine Sodium) 75 Mcg Tablet 1 Tab PO DAILY B-6 (Pyridoxine HCl (Vitamin B6)) 200 Mg Tablet.er 200 Mg PO DAILY Proair Hfa Inhaler (Albuterol Sulfate) 8.5 Gm Hfa.aer.ad 2 Puff INH PRN Q6HRS PRN Potassium Chloride 20 Meq Tablet.er 99 Mg PO DAILY Protonix (Pantoprazole Sodium) 20 Mg Tablet.dr 40 Mg PO DAILY Fish Oil 1,000 mg Softgel ([place]-3/Dha/Epa/Fish Oil) 1,000 Mg Capsule 1,000 Mg PO DAILY NITROGLYCERIN SubLingual (Nitroglycerin) 0.4 Mg Tab.subl 0.4 Mg SL PRN Q5MIN PRN Multivitamins (Multivitamin) 1 Each Tablet 1 Tab PO DAILY Metoprolol Succinate ( Xl ) (Metoprolol Succinate) 25 Mg Tab.er.24h 25 Mg PO DAILY Namenda (Memantine Hcl) 10 Mg Tablet 10 Mg PO DAILY Lisinopril 10 Mg Tablet 10 Mg PO DAILY Isosorbide Mononitrate Er (Isosorbide Mononitrate) 30 Mg Tab.er.24h 30 Mg PO DAILY Guaifenesin 400 Mg Tablet 400 Mg PO PRN BID Lasix (Furosemide) 20 Mg Tablet 10 Mg PO DAILY Eliquis (Apixaban) 5 Mg Tablet 5 Mg PO BID Cardizem Cd (Diltiazem Hcl) 180 Mg Cap.er.24h 120 Mg PO DAILY Coenzyme Q10 (Ubidecarenone) 10 Mg Capsule 10 Mg PO DAILY Vitamin D (Cholecalciferol (Vitamin D3)) 2,000 Unit Capsule 1 Cap PO DAILY Calcium Carbonate 600 Mg Tablet 1,200 Mg PO TID Lipitor (Atorvastatin Calcium) 40 Mg Tablet 1 Tab PO QHS Aspirin 81 Mg Tab.chew 1 Tab PO DAILY Xanax (Alprazolam) 0.5 Mg Tablet 0.75 Mg PO PRN DAILY PRN Fosamax (Alendronate Sodium) 70 Mg Tablet 1 Tab PO WEEKLY Proair Hfa Inhaler (Albuterol Sulfate) 8.5 Gm Hfa.aer.ad 1 Puff INH PRN Q6HRS PRN Allergies Allergies: Allergies Coded Allergies Type Severity Reaction Last Updated Verified NSAIDS (Non-Steroidal Anti-Inflamma Allergy Unknown 07/10/18 Yes atropine Allergy Unknown 07/10/18 Yes bacitracin Allergy Unknown 07/10/18 Yes belladonna alkaloids Allergy Unknown 07/10/18 Yes diphenhydramine Allergy Unknown 07/10/18 Yes gramicidin D Allergy Unknown 07/10/18 Yes hyoscyamine Allergy Unknown 07/10/18 Yes ketorolac Allergy Unknown 07/10/18 Yes morphine Allergy Unknown 07/10/18 Yes neomycin Allergy Unknown 07/10/18 Yes penicillin G Allergy Unknown 07/10/18 Yes penicillin V Allergy Unknown 07/10/18 Yes phenobarbital Allergy Unknown 07/10/18 Yes polymyxin B Allergy Unknown 07/10/18 Yes scopolamine Allergy Unknown 07/10/18 Yes ROS Review of System The patient denies any associated fevers, chills, headache, ear pain, rhinorrhea , sore throat, stiff neck, productive cough, chest pain, shortness of breath, back or flank pain, abdominal pain, nausea, vomiting, diarrhea, constipation, dysuria, rash, numbness, weakness, tingling, incontinence, difficulty ambulating, or diaphoresis. Physical Exam Physical Exam General: Well developed, well nourished, no acute distress, well appearing HEENT: Pupils equally round and reactive to light, EOMI, no discharge, normal conjunctiva Neck: Supple, no nuchal rigidity, no JVD, trachea midline, no tenderness Cardiac: RRR, no murmurs, no gallops, no rubs Chest/Lungs: CTAB, no wheeze, no rhonchi, no crackles Abdomen: soft, non-distended, no guarding, no peritoneal signs, non-tender Back: No tenderness Extremities: no edema, pulses intact, non-tender,capillary refill <3 sec bilateral upper and lower extremities, Neuro: Alert and oriented x 4, no focal deficits, normal speech Vitals Vitals: Vital Signs Date Time Temp Pulse Resp B/P (MAP) Pulse Ox O2 Delivery O2 Flow Rate FiO2 07/14/18 14:22 97.8 75 18 123/54 (77) 97 Nasal Cannula 2.0 97.8 Labs Labs Laboratory Tests Test 07/13/18 03:30 07/14/18 03:40 White Blood Count 6.4 x10^3/uL (4.0-11.0) 5.5 x10^3/uL (4.0-11.0) Red Blood Count 3.40 x10^6/uL (3.50-5.40) 3.10 x10^6/uL (3.50-5.40) Hemoglobin 10.3 g/dL (12.0-15.5) 9.5 g/dL (12.0-15.5) Hematocrit 32.0 % (36.0-47.0) 29.2 % (36.0-47.0) Mean Corpuscular Volume 94 fL (79-100) 94 fL (79-100) Mean Corpuscular Hemoglobin 30 pg (25-35) 31 pg (25-35) Mean Corpuscular Hemoglobin Concent 32 g/dL (31-37) 33 g/dL (31-37) Red Cell Distribution Width 14.7 % (11.5-14.5) 14.5 % (11.5-14.5) Platelet Count 261 x10^3/uL (140-400) 224 x10^3/uL (140-400) Neutrophils (%) (Auto) 53 % (31-73) 46 % (31-73) Lymphocytes (%) (Auto) 28 % (24-48) 31 % (24-48) Monocytes (%) (Auto) 9 % (0-9) 11 % (0-9) Eosinophils (%) (Auto) 10 % (0-3) 11 % (0-3) Basophils (%) (Auto) 1 % (0-3) 1 % (0-3) Neutrophils # (Auto) 3.3 x10^3uL (1.8-7.7) 2.5 x10^3uL (1.8-7.7) Lymphocytes # (Auto) 1.8 x10^3/uL (1.0-4.8) 1.7 x10^3/uL (1.0-4.8) Monocytes # (Auto) 0.6 x10^3/uL (0.0-1.1) 0.6 x10^3/uL (0.0-1.1) Eosinophils # (Auto) 0.6 x10^3/uL (0.0-0.7) 0.6 x10^3/uL (0.0-0.7) Basophils # (Auto) 0.1 x10^3/uL (0.0-0.2) 0.1 x10^3/uL (0.0-0.2) Sodium Level 148 mmol/L (136-145) 144 mmol/L (136-145) Potassium Level 4.4 mmol/L (3.5-5.1) 3.6 mmol/L (3.5-5.1) Chloride Level 109 mmol/L (98-107) 106 mmol/L (98-107) Carbon Dioxide Level 30 mmol/L (21-32) 31 mmol/L (21-32) Anion Gap 9 (6-14) 7 (6-14) Blood Urea Nitrogen 25 mg/dL (7-20) 24 mg/dL (7-20) Creatinine 0.8 mg/dL (0.6-1.0) 0.7 mg/dL (0.6-1.0) Estimated GFR (Cockcroft-Gault) 70.3 82.0 BUN/Creatinine Ratio 31 (6-20) 34 (6-20) Glucose Level 109 mg/dL (70-99) 102 mg/dL (70-99) Calcium Level 8.6 mg/dL (8.5-10.1) 8.5 mg/dL (8.5-10.1) Total Bilirubin 0.3 mg/dL (0.2-1.0) 0.2 mg/dL (0.2-1.0) Aspartate Amino Transf (AST/SGOT) 39 U/L (15-37) 23 U/L (15-37) Alanine Aminotransferase (ALT/SGPT) 26 U/L (14-59) 21 U/L (14-59) Alkaline Phosphatase 67 U/L (46-116) 65 U/L (46-116) Total Protein 6.1 g/dL (6.4-8.2) 5.8 g/dL (6.4-8.2) Albumin 2.9 g/dL (3.4-5.0) 2.9 g/dL (3.4-5.0) Albumin/Globulin Ratio 0.9 (1.0-1.7) 1.0 (1.0-1.7) Laboratory Tests Test 07/14/18 03:40 White Blood Count 5.5 x10^3/uL (4.0-11.0) Red Blood Count 3.10 x10^6/uL (3.50-5.40) Hemoglobin 9.5 g/dL (12.0-15.5) Hematocrit 29.2 % (36.0-47.0) Mean Corpuscular Volume 94 fL (79-100) Mean Corpuscular Hemoglobin 31 pg (25-35) Mean Corpuscular Hemoglobin Concent 33 g/dL (31-37) Red Cell Distribution Width 14.5 % (11.5-14.5) Platelet Count 224 x10^3/uL (140-400) Neutrophils (%) (Auto) 46 % (31-73) Lymphocytes (%) (Auto) 31 % (24-48) Monocytes (%) (Auto) 11 % (0-9) Eosinophils (%) (Auto) 11 % (0-3) Basophils (%) (Auto) 1 % (0-3) Neutrophils # (Auto) 2.5 x10^3uL (1.8-7.7) Lymphocytes # (Auto) 1.7 x10^3/uL (1.0-4.8) Monocytes # (Auto) 0.6 x10^3/uL (0.0-1.1) Eosinophils # (Auto) 0.6 x10^3/uL (0.0-0.7) Basophils # (Auto) 0.1 x10^3/uL (0.0-0.2) Sodium Level 144 mmol/L (136-145) Potassium Level 3.6 mmol/L (3.5-5.1) Chloride Level 106 mmol/L (98-107) Carbon Dioxide Level 31 mmol/L (21-32) Anion Gap 7 (6-14) Blood Urea Nitrogen 24 mg/dL (7-20) Creatinine 0.7 mg/dL (0.6-1.0) Estimated GFR (Cockcroft-Gault) 82.0 BUN/Creatinine Ratio 34 (6-20) Glucose Level 102 mg/dL (70-99) Calcium Level 8.5 mg/dL (8.5-10.1) Total Bilirubin 0.2 mg/dL (0.2-1.0) Aspartate Amino Transf (AST/SGOT) 23 U/L (15-37) Alanine Aminotransferase (ALT/SGPT) 21 U/L (14-59) Alkaline Phosphatase 65 U/L (46-116) Total Protein 5.8 g/dL (6.4-8.2) Albumin 2.9 g/dL (3.4-5.0) Albumin/Globulin Ratio 1.0 (1.0-1.7) JOHN JJ MD Jul 14, 2018 17:59
[2018-07-14 19:00] VITALS: BP 173/68
[2018-07-14] MEDS: ATORVASTATIN CALCIUM 40 MG TABLET. PO SCH (21:37)
[2018-07-14] MEDS: MEMANTINE 10 MG TABLET. PO SCH (21:38)
[2018-07-14 23:00] VITALS: BP 134/47
[2018-07-15 03:25] VITALS: BP 124/44
[2018-07-15 04:22] LABS: BASO # 0.1 x10^3/uL (0.0-0.2); BASO % 1 % (0-3); EOS # 0.6 x10^3/uL (0.0-0.7); EOS % 11 % (0-3); HEMOGLOBIN 9.5 g/dL (12.0-15.5); LYMPH # 1.7 x10^3/uL (1.0-4.8); LYMPH % 32 % (24-48); MEAN CORPUSCULAR HEMOGLOBIN 32 pg (25-35); MEAN CORPUSCULAR HGB CONC 34 g/dL (31-37); MEAN CORPUSCULAR VOLUME 94 fL (79-100); MONO # 0.6 x10^3/uL (0.0-1.1); MONO % 11 % (0-9); NEUT # 2.5 x10^3uL (1.8-7.7); NEUT % 46 % (31-73); PLATELET COUNT 243 x10^3/uL (140-400); RED BLOOD COUNT 2.98 x10^6/uL (3.50-5.40); RED CELL DISTRIBUTION WIDTH 14.6 % (11.5-14.5); WHITE BLOOD COUNT 5.4 x10^3/uL (4.0-11.0)
[2018-07-15 04:43] LABS: ALBUMIN/GLOBULIN RATIO 1.1 (1.0-1.7); CALCIUM 8.5 mg/dL (8.5-10.1); CREATININE 0.8 mg/dL (0.6-1.0); GFR 70.3; POTASSIUM 3.7 mmol/L (3.5-5.1); TOTAL BILIRUBIN 0.2 mg/dL (0.2-1.0); TOTAL PROTEIN 5.7 g/dL (6.4-8.2)
[2018-07-15 07:00] VITALS: BP 125/55
--- NOTE | 2018-07-15 07:21 | NUR ---
Held [address] dose of [address] per Dr. Tam.
[2018-07-15] MEDS: ALBUTEROL SULFATE 2.5 MG/3 ML NEBU. NEB SCH ×4 (07:49→19:51)
[2018-07-15] MEDS: CHOLECALCIFEROL (VITAMIN D3) 1,000 UNIT TABLET PO SCH (08:52)
[2018-07-15] MEDS: ASPIRIN CHEWABLE 81 MG TABLET. PO SCH (08:54)
[2018-07-15] MEDS: METOPROLOL SUCC 24HR ER 25 MG TAB.ER.24H. PO SCH (08:54)
[2018-07-15] MEDS: OMEGA-3 FATTY ACIDS/FISH OIL 1,000 MG CAPSULE. PO SCH (08:54)
[2018-07-15] MEDS: CALCIUM CARBONATE 500 MG TABLET PO SCH ×3 (08:54→17:38)
[2018-07-15] MEDS: ISOSORBIDE MONONITRATE ER 30 MG TAB.ER.24H PO SCH (08:54)
[2018-07-15] MEDS: LISINOPRIL 10 MG TABLET PO SCH (08:54)
[2018-07-15] MEDS: FUROSEMIDE 20 MG TABLET PO SCH (08:54)
[2018-07-15] MEDS: LEVOTHYROXINE 100 MCG TABLET PO SCH (08:55)
[2018-07-15] MEDS: MULTIVITAMIN with MINERAL TABLET. PO SCH (08:55)
[2018-07-15] MEDS: PANTOPRAZOLE 40 MG TABLET.DR. PO SCH (08:55)
[2018-07-15] MEDS: PYRIDOXINE 50 MG TABLET. PO SCH (08:55)
[2018-07-15] MEDS: ANORO ELLIPTA INHALATION INH SCH (08:56)
[2018-07-15] MEDS: MAGNESIUM HYDROXIDE 2,400 MG/30 ML ORAL.SUSP. PO PRN (08:56)
--- NOTE | 2018-07-15 10:41 | PDOC ---
PULMONARY PROGRESS NOTES Subjective no soa Vitals Vital Signs Date Time Temp Pulse Resp B/P (MAP) Pulse Ox O2 Delivery O2 Flow Rate FiO2 07/15/18 08:55 65 125/55 07/15/18 07:50 99 Nasal Cannula 2.0 07/15/18 07:00 98.0 18 98.0 General: Alert, No acute distress Lungs: Clear Cardiovascular: S1 Abdomen: Soft Neuro Exam: Alert Extremities: No Edema Labs Laboratory Tests Test 07/14/18 03:40 07/15/18 03:20 White Blood Count 5.5 x10^3/uL (4.0-11.0) 5.4 x10^3/uL (4.0-11.0) Red Blood Count 3.10 x10^6/uL (3.50-5.40) 2.98 x10^6/uL (3.50-5.40) Hemoglobin 9.5 g/dL (12.0-15.5) 9.5 g/dL (12.0-15.5) Hematocrit 29.2 % (36.0-47.0) 28.0 % (36.0-47.0) Mean Corpuscular Volume 94 fL (79-100) 94 fL (79-100) Mean Corpuscular Hemoglobin 31 pg (25-35) 32 pg (25-35) Mean Corpuscular Hemoglobin Concent 33 g/dL (31-37) 34 g/dL (31-37) Red Cell Distribution Width 14.5 % (11.5-14.5) 14.6 % (11.5-14.5) Platelet Count 224 x10^3/uL (140-400) 243 x10^3/uL (140-400) Neutrophils (%) (Auto) 46 % (31-73) 46 % (31-73) Lymphocytes (%) (Auto) 31 % (24-48) 32 % (24-48) Monocytes (%) (Auto) 11 % (0-9) 11 % (0-9) Eosinophils (%) (Auto) 11 % (0-3) 11 % (0-3) Basophils (%) (Auto) 1 % (0-3) 1 % (0-3) Neutrophils # (Auto) 2.5 x10^3uL (1.8-7.7) 2.5 x10^3uL (1.8-7.7) Lymphocytes # (Auto) 1.7 x10^3/uL (1.0-4.8) 1.7 x10^3/uL (1.0-4.8) Monocytes # (Auto) 0.6 x10^3/uL (0.0-1.1) 0.6 x10^3/uL (0.0-1.1) Eosinophils # (Auto) 0.6 x10^3/uL (0.0-0.7) 0.6 x10^3/uL (0.0-0.7) Basophils # (Auto) 0.1 x10^3/uL (0.0-0.2) 0.1 x10^3/uL (0.0-0.2) Sodium Level 144 mmol/L (136-145) 145 mmol/L (136-145) Potassium Level 3.6 mmol/L (3.5-5.1) 3.7 mmol/L (3.5-5.1) Chloride Level 106 mmol/L (98-107) 105 mmol/L (98-107) Carbon Dioxide Level 31 mmol/L (21-32) 31 mmol/L (21-32) Anion Gap 7 (6-14) 9 (6-14) Blood Urea Nitrogen 24 mg/dL (7-20) 26 mg/dL (7-20) Creatinine 0.7 mg/dL (0.6-1.0) 0.8 mg/dL (0.6-1.0) Estimated GFR (Cockcroft-Gault) 82.0 70.3 BUN/Creatinine Ratio 34 (6-20) 33 (6-20) Glucose Level 102 mg/dL (70-99) 103 mg/dL (70-99) Calcium Level 8.5 mg/dL (8.5-10.1) 8.5 mg/dL (8.5-10.1) Total Bilirubin 0.2 mg/dL (0.2-1.0) 0.2 mg/dL (0.2-1.0) Aspartate Amino Transf (AST/SGOT) 23 U/L (15-37) 23 U/L (15-37) Alanine Aminotransferase (ALT/SGPT) 21 U/L (14-59) 24 U/L (14-59) Alkaline Phosphatase 65 U/L (46-116) 66 U/L (46-116) Total Protein 5.8 g/dL (6.4-8.2) 5.7 g/dL (6.4-8.2) Albumin 2.9 g/dL (3.4-5.0) 3.0 g/dL (3.4-5.0) Albumin/Globulin Ratio 1.0 (1.0-1.7) 1.1 (1.0-1.7) Laboratory Tests Test 07/15/18 03:20 White Blood Count 5.4 x10^3/uL (4.0-11.0) Red Blood Count 2.98 x10^6/uL (3.50-5.40) Hemoglobin 9.5 g/dL (12.0-15.5) Hematocrit 28.0 % (36.0-47.0) Mean Corpuscular Volume 94 fL (79-100) Mean Corpuscular Hemoglobin 32 pg (25-35) Mean Corpuscular Hemoglobin Concent 34 g/dL (31-37) Red Cell Distribution Width 14.6 % (11.5-14.5) Platelet Count 243 x10^3/uL (140-400) Neutrophils (%) (Auto) 46 % (31-73) Lymphocytes (%) (Auto) 32 % (24-48) Monocytes (%) (Auto) 11 % (0-9) Eosinophils (%) (Auto) 11 % (0-3) Basophils (%) (Auto) 1 % (0-3) Neutrophils # (Auto) 2.5 x10^3uL (1.8-7.7) Lymphocytes # (Auto) 1.7 x10^3/uL (1.0-4.8) Monocytes # (Auto) 0.6 x10^3/uL (0.0-1.1) Eosinophils # (Auto) 0.6 x10^3/uL (0.0-0.7) Basophils # (Auto) 0.1 x10^3/uL (0.0-0.2) Sodium Level 145 mmol/L (136-145) Potassium Level 3.7 mmol/L (3.5-5.1) Chloride Level 105 mmol/L (98-107) Carbon Dioxide Level 31 mmol/L (21-32) Anion Gap 9 (6-14) Blood Urea Nitrogen 26 mg/dL (7-20) Creatinine 0.8 mg/dL (0.6-1.0) Estimated GFR (Cockcroft-Gault) 70.3 BUN/Creatinine Ratio 33 (6-20) Glucose Level 103 mg/dL (70-99) Calcium Level 8.5 mg/dL (8.5-10.1) Total Bilirubin 0.2 mg/dL (0.2-1.0) Aspartate Amino Transf (AST/SGOT) 23 U/L (15-37) Alanine Aminotransferase (ALT/SGPT) 24 U/L (14-59) Alkaline Phosphatase 66 U/L (46-116) Total Protein 5.7 g/dL (6.4-8.2) Albumin 3.0 g/dL (3.4-5.0) Albumin/Globulin Ratio 1.1 (1.0-1.7) Medications Active Scripts Medications Dose Route/Sig Max Daily Dose Days Date Category Dose Instructions Alprazolam 0.5 Mg Tablet 0.5 Mg PO PRN DAILY PRN 07/14/18 Reported Anoro Ellipta 62.5-25 Mcg Inh (Umeclidinium Brm/Vilanterol Tr) 1 Each Disk.w.dev 1 Each IH DAILY 07/10/18 Reported Triamcinolone Acetonide 0.1% Oint (Triamcinolone Acetonide) 15 Gm Oint...g. 1 Mayank TP PRN BID 07/10/18 Reported MIX WITH EUCERIN DIRECTED BY PHYSICIAN Synthroid (Levothyroxine Sodium) 75 Mcg Tablet 1 Tab PO DAILY 07/10/18 Reported B-6 (Pyridoxine HCl (Vitamin B6)) 200 Mg Tablet.er 200 Mg PO DAILY 07/10/18 Reported Proair Hfa Inhaler (Albuterol Sulfate) 8.5 Gm Hfa.aer.ad 2 Puff INH PRN Q6HRS PRN 07/10/18 Reported Potassium Chloride 20 Meq Tablet.er 99 Mg PO DAILY 07/10/18 Reported Protonix (Pantoprazole Sodium) 20 Mg Tablet.dr 40 Mg PO DAILY 07/10/18 Reported Fish Oil 1,000 mg Softgel ([place]-3/Dha/Epa/Fish Oil) 1,000 Mg Capsule 1,000 Mg PO DAILY 07/10/18 Reported NITROGLYCERIN SubLingual (Nitroglycerin) 0.4 Mg Tab.subl 0.4 Mg SL PRN Q5MIN PRN 07/10/18 Reported Multivitamins (Multivitamin) 1 Each Tablet 1 Tab PO DAILY 07/10/18 Reported Metoprolol Succinate ( Xl ) (Metoprolol Succinate) 25 Mg Tab.er.24h 25 Mg PO DAILY 07/10/18 Reported Namenda (Memantine Hcl) 10 Mg Tablet 10 Mg PO DAILY 07/10/18 Reported Lisinopril 10 Mg Tablet 10 Mg PO DAILY 07/10/18 Reported Isosorbide Mononitrate Er (Isosorbide Mononitrate) 30 Mg Tab.er.24h 30 Mg PO DAILY 07/10/18 Reported Guaifenesin 400 Mg Tablet 400 Mg PO PRN BID 07/10/18 Reported Lasix (Furosemide) 20 Mg Tablet 10 Mg PO DAILY 07/10/18 Reported Eliquis (Apixaban) 5 Mg Tablet 5 Mg PO BID 07/10/18 Reported Cardizem Cd (Diltiazem Hcl) 180 Mg Cap.er.24h 120 Mg PO DAILY 07/10/18 Reported Coenzyme Q10 (Ubidecarenone) 10 Mg Capsule 10 Mg PO DAILY 07/10/18 Reported Vitamin D (Cholecalciferol (Vitamin D3)) 2,000 Unit Capsule 1 Cap PO DAILY 07/10/18 Reported Calcium Carbonate 600 Mg Tablet 1,200 Mg PO TID 07/10/18 Reported Lipitor (Atorvastatin Calcium) 40 Mg Tablet 1 Tab PO QHS 07/10/18 Reported Aspirin 81 Mg Tab.chew 1 Tab PO DAILY 07/10/18 Reported Xanax (Alprazolam) 0.5 Mg Tablet 0.75 Mg PO PRN DAILY PRN 07/10/18 Reported Fosamax (Alendronate Sodium) 70 Mg Tablet 1 Tab PO WEEKLY 07/10/18 Reported Proair Hfa Inhaler (Albuterol Sulfate) 8.5 Gm Hfa.aer.ad 1 Puff INH PRN Q6HRS PRN 07/10/18 Reported Impression . 1. Abnormal CT chest with two tiny nodules, 8 mm and 6 mm in the left upper lobe along with parenchymal scarring and less likely nonmalignant. We will need to follow another scan in 4 months due to long history of tobacco use. 2. Oxygen dependent chronic respiratory failure secondary to chronic obstructive pulmonary disease. 3. Secondary pulmonary hypertension. Plan . 1. From a pulmonary standpoint, she is okay to discharge on oxygen. 2. Repeat CT chest in 4 months. I have discussed with RN to keep a followup with me in the office. 3. Discussed with RN. AYESHA BURT MD Jul 15, 2018 10:41
[2018-07-15 11:00] VITALS: BP 129/76
--- NOTE | 2018-07-15 11:18 | PDOC ---
PROGRESS NOTES Chief Complaint Chief Complaint Speech Difficulty Confusion CVA? Memory loss- Dementia? 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 07/[address] ANGIOGRAM TODAY, PT WANTS TO GO HOME ALONE, HIGH RISK D/C LIVES ALONE WILL CONSULT PAT History of Present Illness History of Present Illness Ms Jimenez is a 73 yo F who was admitted for confusion/difficulty speaking, PMH COPD and former smoker She was seen and examined in her room this morning, NAD less expressive aphasia, completed thoughts , not completely She states that when her anxiety increases, her ability to express her thoughts decreases Discussed her medications, treatments, and her concerns at length Discussed with RN 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 This is nonspecific and could be related to acute or chronic bronchial inflammatory process or chronic aspiration. CTA neck was reviewed with , occlusion vs a string sign -- Dx angiogram / if right CEA needed. UNDERSTANDS RISK OF CVA OR WITH HIGH RISK SURGERY complex decision making involved Vitals Vitals Vital Signs Date Time Temp Pulse Resp B/P (MAP) Pulse Ox O2 Delivery O2 Flow Rate FiO2 07/15/18 11:00 97.9 69 18 129/76 (93) 99 Nasal Cannula 2.0 97.9 Physical Exam Physical Exam DELAYED,// INCOMPLETE RESPONSE TO QUESTIONS General: Alert, Oriented X3, Cooperative, No acute distress Heart: Regular rate, No murmurs, Other (prominent L sided carotid bruit) Lungs: Clear Abdomen: Normal bowel sounds, Soft, Other (supraumbilical ventral hernia) Extremities: No clubbing, No edema Skin: No rashes, No breakdown, No significant lesion Labs LABS Laboratory Tests Test 07/15/18 03:20 White Blood Count 5.4 x10^3/uL (4.0-11.0) Red Blood Count 2.98 x10^6/uL (3.50-5.40) Hemoglobin 9.5 g/dL (12.0-15.5) Hematocrit 28.0 % (36.0-47.0) Mean Corpuscular Volume 94 fL (79-100) Mean Corpuscular Hemoglobin 32 pg (25-35) Mean Corpuscular Hemoglobin Concent 34 g/dL (31-37) Red Cell Distribution Width 14.6 % (11.5-14.5) Platelet Count 243 x10^3/uL (140-400) Neutrophils (%) (Auto) 46 % (31-73) Lymphocytes (%) (Auto) 32 % (24-48) Monocytes (%) (Auto) 11 % (0-9) Eosinophils (%) (Auto) 11 % (0-3) Basophils (%) (Auto) 1 % (0-3) Neutrophils # (Auto) 2.5 x10^3uL (1.8-7.7) Lymphocytes # (Auto) 1.7 x10^3/uL (1.0-4.8) Monocytes # (Auto) 0.6 x10^3/uL (0.0-1.1) Eosinophils # (Auto) 0.6 x10^3/uL (0.0-0.7) Basophils # (Auto) 0.1 x10^3/uL (0.0-0.2) Sodium Level 145 mmol/L (136-145) Potassium Level 3.7 mmol/L (3.5-5.1) Chloride Level 105 mmol/L (98-107) Carbon Dioxide Level 31 mmol/L (21-32) Anion Gap 9 (6-14) Blood Urea Nitrogen 26 mg/dL (7-20) Creatinine 0.8 mg/dL (0.6-1.0) Estimated GFR (Cockcroft-Gault) 70.3 BUN/Creatinine Ratio 33 (6-20) Glucose Level 103 mg/dL (70-99) Calcium Level 8.5 mg/dL (8.5-10.1) Total Bilirubin 0.2 mg/dL (0.2-1.0) Aspartate Amino Transf (AST/SGOT) 23 U/L (15-37) Alanine Aminotransferase (ALT/SGPT) 24 U/L (14-59) Alkaline Phosphatase 66 U/L (46-116) Total Protein 5.7 g/dL (6.4-8.2) Albumin 3.0 g/dL (3.4-5.0) Albumin/Globulin Ratio 1.1 (1.0-1.7) Review of Systems Review of Systems Goal 3 Assessment * Discontinue Frequency of Treatment Expected * 6 visits/week No Further Skilled P.T. Intervention Required * Instruction Completed Discharge Recommendations * Home independent * Home with Home Health Discharge Recommendation Comments * Home with HH; consider AL in future * * PT REFUSING HOME HEALTH AMA, HIGH RISK DISCHARGE Comment Review of Relevant I have reviewed the following items vidal (where applicable) has been applied. Labs Laboratory Tests Test 07/14/18 03:40 07/15/18 03:20 White Blood Count 5.5 x10^3/uL (4.0-11.0) 5.4 x10^3/uL (4.0-11.0) Red Blood Count 3.10 x10^6/uL (3.50-5.40) 2.98 x10^6/uL (3.50-5.40) Hemoglobin 9.5 g/dL (12.0-15.5) 9.5 g/dL (12.0-15.5) Hematocrit 29.2 % (36.0-47.0) 28.0 % (36.0-47.0) Mean Corpuscular Volume 94 fL (79-100) 94 fL (79-100) Mean Corpuscular Hemoglobin 31 pg (25-35) 32 pg (25-35) Mean Corpuscular Hemoglobin Concent 33 g/dL (31-37) 34 g/dL (31-37) Red Cell Distribution Width 14.5 % (11.5-14.5) 14.6 % (11.5-14.5) Platelet Count 224 x10^3/uL (140-400) 243 x10^3/uL (140-400) Neutrophils (%) (Auto) 46 % (31-73) 46 % (31-73) Lymphocytes (%) (Auto) 31 % (24-48) 32 % (24-48) Monocytes (%) (Auto) 11 % (0-9) 11 % (0-9) Eosinophils (%) (Auto) 11 % (0-3) 11 % (0-3) Basophils (%) (Auto) 1 % (0-3) 1 % (0-3) Neutrophils # (Auto) 2.5 x10^3uL (1.8-7.7) 2.5 x10^3uL (1.8-7.7) Lymphocytes # (Auto) 1.7 x10^3/uL (1.0-4.8) 1.7 x10^3/uL (1.0-4.8) Monocytes # (Auto) 0.6 x10^3/uL (0.0-1.1) 0.6 x10^3/uL (0.0-1.1) Eosinophils # (Auto) 0.6 x10^3/uL (0.0-0.7) 0.6 x10^3/uL (0.0-0.7) Basophils # (Auto) 0.1 x10^3/uL (0.0-0.2) 0.1 x10^3/uL (0.0-0.2) Sodium Level 144 mmol/L (136-145) 145 mmol/L (136-145) Potassium Level 3.6 mmol/L (3.5-5.1) 3.7 mmol/L (3.5-5.1) Chloride Level 106 mmol/L (98-107) 105 mmol/L (98-107) Carbon Dioxide Level 31 mmol/L (21-32) 31 mmol/L (21-32) Anion Gap 7 (6-14) 9 (6-14) Blood Urea Nitrogen 24 mg/dL (7-20) 26 mg/dL (7-20) Creatinine 0.7 mg/dL (0.6-1.0) 0.8 mg/dL (0.6-1.0) Estimated GFR (Cockcroft-Gault) 82.0 70.3 BUN/Creatinine Ratio 34 (6-20) 33 (6-20) Glucose Level 102 mg/dL (70-99) 103 mg/dL (70-99) Calcium Level 8.5 mg/dL (8.5-10.1) 8.5 mg/dL (8.5-10.1) Total Bilirubin 0.2 mg/dL (0.2-1.0) 0.2 mg/dL (0.2-1.0) Aspartate Amino Transf (AST/SGOT) 23 U/L (15-37) 23 U/L (15-37) Alanine Aminotransferase (ALT/SGPT) 21 U/L (14-59) 24 U/L (14-59) Alkaline Phosphatase 65 U/L (46-116) 66 U/L (46-116) Total Protein 5.8 g/dL (6.4-8.2) 5.7 g/dL (6.4-8.2) Albumin 2.9 g/dL (3.4-5.0) 3.0 g/dL (3.4-5.0) Albumin/Globulin Ratio 1.0 (1.0-1.7) 1.1 (1.0-1.7) Laboratory Tests Test 07/15/18 03:20 White Blood Count 5.4 x10^3/uL (4.0-11.0) Red Blood Count 2.98 x10^6/uL (3.50-5.40) Hemoglobin 9.5 g/dL (12.0-15.5) Hematocrit 28.0 % (36.0-47.0) Mean Corpuscular Volume 94 fL (79-100) Mean Corpuscular Hemoglobin 32 pg (25-35) Mean Corpuscular Hemoglobin Concent 34 g/dL (31-37) Red Cell Distribution Width 14.6 % (11.5-14.5) Platelet Count 243 x10^3/uL (140-400) Neutrophils (%) (Auto) 46 % (31-73) Lymphocytes (%) (Auto) 32 % (24-48) Monocytes (%) (Auto) 11 % (0-9) Eosinophils (%) (Auto) 11 % (0-3) Basophils (%) (Auto) 1 % (0-3) Neutrophils # (Auto) 2.5 x10^3uL (1.8-7.7) Lymphocytes # (Auto) 1.7 x10^3/uL (1.0-4.8) Monocytes # (Auto) 0.6 x10^3/uL (0.0-1.1) Eosinophils # (Auto) 0.6 x10^3/uL (0.0-0.7) Basophils # (Auto) 0.1 x10^3/uL (0.0-0.2) Sodium Level 145 mmol/L (136-145) Potassium Level 3.7 mmol/L (3.5-5.1) Chloride Level 105 mmol/L (98-107) Carbon Dioxide Level 31 mmol/L (21-32) Anion Gap 9 (6-14) Blood Urea Nitrogen 26 mg/dL (7-20) Creatinine 0.8 mg/dL (0.6-1.0) Estimated GFR (Cockcroft-Gault) 70.3 BUN/Creatinine Ratio 33 (6-20) Glucose Level 103 mg/dL (70-99) Calcium Level 8.5 mg/dL (8.5-10.1) Total Bilirubin 0.2 mg/dL (0.2-1.0) Aspartate Amino Transf (AST/SGOT) 23 U/L (15-37) Alanine Aminotransferase (ALT/SGPT) 24 U/L (14-59) Alkaline Phosphatase 66 U/L (46-116) Total Protein 5.7 g/dL (6.4-8.2) Albumin 3.0 g/dL (3.4-5.0) Albumin/Globulin Ratio 1.1 (1.0-1.7) Medications Current Medications Aspirin (Children'S Aspirin) 324 mg 1X ONCE PO Last administered on 07/10/18 16:36; Start 07/10/18 at 15:45; Stop 07/10/18 at 16:30; Status DC Albuterol Sulfate (Ventolin Neb Soln) 2.5 mg PRN Q6HRS PRN INH SHORTNESS OF BREATH Last administered on 07/12/18 13:21; Start 07/10/18 at 19:00 Alprazolam (Xanax) 0.75 mg PRN DAILY PRN PO ANXIETY / AGITATION Last administered on 07/13/18 21:44; Start 07/10/18 at 19:00 Apixaban (Eliquis) 5 mg BID PO Last administered on 07/14/18 09:35; Start 07/10 at 21:00 Aspirin (Children'S Aspirin) 81 mg DAILY PO Last administered on 07/15/18 08: 54; Start 07/11/18 at 09:00 Atorvastatin Calcium (Lipitor) 40 mg QHS PO Last administered on 07/14/18 21: 37; Start 07/10/18 at 21:00 Furosemide (Lasix) 10 mg DAILY PO Last administered on 07/15/18 08:54; Start 07/11/18 at 09:00 Isosorbide Mononitrate (Imdur) 30 mg DAILY PO Last administered on 07/15/18 08 :54; Start 07/11/18 at 09:00 Levothyroxine Sodium (Synthroid) 75 mcg DAILY07 PO Last administered on 06:15; Start 07/11/18 at 07:00; Stop 07/12/18 at 17:17; Status DC Lisinopril (Prinivil) 10 mg DAILY PO Last administered on 07/15/18 08:54; Start 07/11/18 at 09:00 Metoprolol Succinate (Toprol Xl) 25 mg DAILY PO Last administered on 07/15/18 08:54; Start 07/11/18 at 09:00 Nitroglycerin (Nitrostat) 0.4 mg PRN Q5MIN PRN SL CHEST PAIN; Start 07/10/18 at 19:00 Triamcinolone Acetonide (Kenalog) 1 mayank PRN BID PRN TP RASH; Start 07/10/18 at 19:00 Non-Formulary Medication (Alendronate Sodium (Fosamax)) 1 tab WEEKLY PO ; Start 07/17/18 at 09:00; Status UNV Calcium Carbonate/ Glycine (Oscal) 1,000 mg TIDAFTMEAL PO Last administered on 07/15/18 08:54; Start 07/11/18 at 09:00 Vitamin D (Vitamin D3) 2,000 unit DAILY PO Last administered on 07/15/18 08:52 ; Start 07/11/18 at 09:00 Diltiazem HCl (Cardizem 24hr Cd) 120 mg DAILY PO Last administered on 08:55; Start 07/11/18 at 09:00 Guaifenesin (Robitussin) 400 mg PRN BID PRN PO COUGH; Start 07/10/18 at 19:15 Memantine (Namenda) 10 mg DAILY PO ; Start 07/11/18 at 09:00; Stop 07/11/18 at 12: 59; Status DC Multivitamins (Thera M Plus) 1 tab DAILY PO Last administered on 07/15/18 08: 55; Start 07/11/18 at 09:00 Fish Oil (Fish Oil) 1,000 mg DAILY PO Last administered on 07/15/18 08:54; Start 07/11/18 at 09:00 Pantoprazole Sodium (Protonix) 40 mg DAILYAC PO Last administered on 07/15/18 08:55; Start 07/11/18 at 07:30 Non-Formulary Medication (Potassium Chloride ) 99 mg DAILY PO ; Start 07/11/18 at 09:00; Status UNV Pyridoxine HCl (Vitamin B-6) 200 mg DAILY PO Last administered on 07/15/18 08: 55; Start 07/11/18 at 09:00 Non-Formulary Medication (Ubidecarenone (Coenzyme Q10)) 10 mg DAILY PO ; Start 07/11/18 at 09:00; Status UNV Non-Formulary Medication 1 ea DAILY INH Last administered on 07/15/18 08:56; Start 07/11/18 at 09:00 Info (Anti-Coagulation Monitoring By Pharmacy) 1 each PRN DAILY PRN MC SEE COMMENTS Last administered on 07/14/18 15:29; Start 07/11/18 at 07:45 Acetaminophen (Tylenol) 650 mg PRN Q6HRS PRN PO TEMP > 100.4F; Start 07/11/18 at 08:45 Acetaminophen (Tylenol Supp) 650 mg PRN Q4HRS PRN OK TEMP > 100.4F; Start at 08:45 Memantine (Namenda) 10 mg QHS PO Last administered on 07/14/18 21:38; Start at 21:00 Magnesium Hydroxide (Milk Of Magnesia) 2,400 mg PRN DAILY PRN PO CONSTIPATION Last administered on 07/15/18 08:56; Start 07/12/18 at 14:15 Albuterol Sulfate (Ventolin Neb Soln) 2.5 mg RTQID NEB Last administered on 07:49; Start 07/12/18 at 20:00 Levothyroxine Sodium (Synthroid) 100 mcg DAILY07 PO Last administered on 08:55; Start 07/13/18 at 07:00 Iohexol (Omnipaque 350 Mg/ml) 75 ml 1X ONCE IV Last administered on 07/13/18 07:39; Start 07/13/18 at 07:15; Stop 07/13/18 at 07:16; Status DC Info (CONTRAST GIVEN -- Rx MONITORING) 1 each PRN DAILY PRN MC SEE COMMENTS; Start 07/13/18 at 07:15; Stop 07/15/18 at 07:14; Status DC Magnesium Hydroxide (Milk Of Magnesia) 2,400 mg 1X ONCE PO Last administered on 07/13/18at 12:36; Start 07/13/18 at 11:00; Stop 07/13/18 at 11:01; Status DC Alprazolam (Xanax) 0.25 mg PRN Q8HRS PRN PO ANXIETY / AGITATION Last administered on 07/14/18at 17:26; Start 07/14/18 at 17:15 Active Scripts Active Reported Alprazolam 0.5 Mg Tablet 0.5 Mg PO PRN DAILY PRN Anoro Ellipta 62.5-25 Mcg Inh (Umeclidinium Brm/Vilanterol Tr) 1 Each Disk.w.dev 1 Each IH DAILY Triamcinolone Acetonide 0.1% Oint (Triamcinolone Acetonide) 15 Gm Oint...g. 1 Mayank TP PRN BID MIX WITH EUCERIN DIRECTED BY PHYSICIAN Synthroid (Levothyroxine Sodium) 75 Mcg Tablet 1 Tab PO DAILY B-6 (Pyridoxine HCl (Vitamin B6)) 200 Mg Tablet.er 200 Mg PO DAILY Proair Hfa Inhaler (Albuterol Sulfate) 8.5 Gm Hfa.aer.ad 2 Puff INH PRN Q6HRS PRN Potassium Chloride 20 Meq Tablet.er 99 Mg PO DAILY Protonix (Pantoprazole Sodium) 20 Mg Tablet.dr 40 Mg PO DAILY Fish Oil 1,000 mg Softgel ([place]-3/Dha/Epa/Fish Oil) 1,000 Mg Capsule 1,000 Mg PO DAILY NITROGLYCERIN SubLingual (Nitroglycerin) 0.4 Mg Tab.subl 0.4 Mg SL PRN Q5MIN PRN Multivitamins (Multivitamin) 1 Each Tablet 1 Tab PO DAILY Metoprolol Succinate ( Xl ) (Metoprolol Succinate) 25 Mg Tab.er.24h 25 Mg PO DAILY Namenda (Memantine Hcl) 10 Mg Tablet 10 Mg PO DAILY Lisinopril 10 Mg Tablet 10 Mg PO DAILY Isosorbide Mononitrate Er (Isosorbide Mononitrate) 30 Mg Tab.er.24h 30 Mg PO DAILY Guaifenesin 400 Mg Tablet 400 Mg PO PRN BID Lasix (Furosemide) 20 Mg Tablet 10 Mg PO DAILY Eliquis (Apixaban) 5 Mg Tablet 5 Mg PO BID Cardizem Cd (Diltiazem Hcl) 180 Mg Cap.er.24h 120 Mg PO DAILY Coenzyme Q10 (Ubidecarenone) 10 Mg Capsule 10 Mg PO DAILY Vitamin D (Cholecalciferol (Vitamin D3)) 2,000 Unit Capsule 1 Cap PO DAILY Calcium Carbonate 600 Mg Tablet 1,200 Mg PO TID Lipitor (Atorvastatin Calcium) 40 Mg Tablet 1 Tab PO QHS Aspirin 81 Mg Tab.chew 1 Tab PO DAILY Xanax (Alprazolam) 0.5 Mg Tablet 0.75 Mg PO PRN DAILY PRN Fosamax (Alendronate Sodium) 70 Mg Tablet 1 Tab PO WEEKLY Proair Hfa Inhaler (Albuterol Sulfate) 8.5 Gm Hfa.aer.ad 1 Puff INH PRN Q6HRS PRN Vitals/I & O Vital Sign - Last 24 Hours 07/14/18 07/14/18 07/14/18 07/14/18 14:22 19:00 19:47 20:00 Temp 97.8 98.0 97.8 98.0 Pulse 75 64 Resp 18 18 B/P (MAP) 123/54 (77) 173/68 (103) Pulse Ox 97 98 99 O2 Delivery Nasal Cannula Room Air Nasal Cannula Nasal Cannula O2 Flow Rate 2.0 2.0 2.0 07/14/18 07/15/18 07/15/18 07/15/18 23:00 03:25 07:00 07:30 Temp 97.7 97.9 98.0 97.7 97.9 98.0 Pulse 63 65 65 Resp 18 18 18 B/P (MAP) 134/47 (76) 124/44 (70) 125/55 (78) Pulse Ox 98 96 99 O2 Delivery Room Air Nasal Cannula Nasal Cannula Nasal Cannula O2 Flow Rate 2.0 2.0 2.0 07/15/18 07/15/18 07/15/18 07/15/18 07:50 08:54 08:54 08:54 Pulse 65 65 65 B/P (MAP) 125/55 125/55 125/55 Pulse Ox 99 O2 Delivery Nasal Cannula O2 Flow Rate 2.0 07/15/18 07/15/18 08:55 11:00 Temp 97.9 97.9 Pulse 65 69 Resp 18 B/P (MAP) 125/55 129/76 (93) Pulse Ox 99 O2 Delivery Nasal Cannula O2 Flow Rate 2.0 Intake and Output 3/11/19 3/11/19 3/12/19 14:59 22:59 06:59 Intake Total 60 ml 300 ml 240 ml Balance 60 ml 300 ml 240 ml Nutrition Consultation Dietary Evaluation: Recommendations by RD: Protein supplementation Comments: Continue w/regular diet as ordered to promote continued good PO intake Will add Ensure BID (strawberry) Expected Outcomes/Goals: PO intake to meet >75% est needs Malnutrition Findings: Body Fat Depletion (Non Severe: Mild Depletion Weight Status: Appropriate RUBEN GARCIA MD Jul 15, 2018 11:18
[2018-07-15] MEDS: APIXABAN 5 MG TABLET. PO SCH ×2 (12:46→20:49)
[2018-07-15] MEDS ORDERED: IOHEXOL 300 MG/ML 100ML VIAL. ONE (13:13)
[2018-07-15] MEDS ORDERED: LIDOCAINE WITH 8.4% SOD BICARB 3 ML DISP.SYRIN. ONE (13:13)
--- NOTE | 2018-07-15 13:40 | PDOC ---
PROGRESS NOTES Assessment Assessment Chronic dementia, most likely a frontotemporal type given the language difficulties. Elevated TSH Carotid artery stenosis, bilaterally. Right eye vision loss x 3 months. Pulmonary hypertension and pulmonic valve regurgitation. COPD. Pulmonary nodules. Former smoker x 53 years. RECOMMENDATIONS/PLAN: On increased Synthroid dose Cardiac and vascular consultations appreciated She is on Eliquis and aspirin already Consulted Vascular Surgery. Placement. Patient stated wanted to protect her left eye by surgery since already loss vision in right eye. PAST MEDICAL AND SURGICAL HISTORY: COPD and hernia repair, dementia. ALLERGIES: NKDA. FAMILY HISTORY: Coronary artery disease. SOCIAL HISTORY: She stated she lived at home alone for about 23 years. She smoked 1 pack a day from age 14 to 67. She quit smoking 6 years ago. No drinking or drugs. MEDICATIONS: See MAR. MEDICATIONS: Refer to MAR REVIEW OF SYSTEMS: Constitutional: No malnutrition, weight loss, cachexia. Head: No traumatic brain or head injury. Skin: No edema, or rash. Ear: No infection. Eyes: Right eye vision loss. Nose: No bleeding or purulent discharges. Hearing: Hearing loss. Neck: No injury. Breast: No history of cancer, masses, or discharges. Cardiac: HTN. CAD. Pulmonary: COPD. GI: No GI Ulcer, GI bleeding Urinary/genital: UTI. Endocrine: No cousin face, craniofacial dysmorphism, polydactyly. Skeletomuscular: No muscular atrophy, deformity. Neurological: see HP. Psychiatric: Denies drug use/abuse. Otherwise, not [id number] review of systems. PHYSICAL EXAMINATION: General appearance in subacute distress. HEENT: Normocephalic and nontraumatic. Eyes, nose, ears, and throat are unremarkable. Hearing decrease. Neck is supple. No lymphadenopathy. Bruits are heard over the carotid artery. No Crepitus. Cardiovascular: S1, S2, regular rate and rhythm. Pulmonary: Clear to auscultation bilaterally. Abdomen: Bowel sounds are positive. Abdomen is soft, nontender, and nondistended. Extremities: No rash, lesions, or edema. No restriction of range of motion NEUROLOGICAL EXAMINATION: Awake. Oriented partially to time, place but knew person. PERRL. EOMI. CN: no focal findings. Muscle tone: within normal. Muscle strength: 4+ DTR: 2 Plantar reflex: Neutral response bilaterally Gait: able to walk from bed to chair. Sensory exam: no abnormal findings. No cerebellar signs elicited. F-T-N test fine. Objective Objective Vital Signs Date Time Temp Pulse Resp B/P (MAP) Pulse Ox O2 Delivery O2 Flow Rate FiO2 07/15/18 11:40 Nasal Cannula 2.0 07/15/18 11:00 97.9 69 18 129/76 (93) 99 97.9 Intake and Output 07/15/18 07:00 Intake Total 600 ml Balance 600 ml Intake Oral 600 ml # Voids 5 Vitals Signs Vitals VS - Last 72 Hours, by Label Date Time Temp Pulse Resp B/P (MAP) Pulse Ox O2 Delivery O2 Flow Rate FiO2 07/15/18 11:40 Nasal Cannula 2.0 07/15/18 11:00 97.9 69 18 129/76 (93) 99 Nasal Cannula 2.0 97.9 07/15/18 08:55 65 125/55 07/15/18 08:54 65 125/55 07/15/18 08:54 65 125/55 07/15/18 08:54 65 125/55 07/15/18 07:50 99 Nasal Cannula 2.0 07/15/18 07:30 Nasal Cannula 2.0 07/15/18 07:00 98.0 65 18 125/55 (78) 99 Nasal Cannula 2.0 98.0 07/15/18 03:25 97.9 65 18 124/44 (70) 96 Nasal Cannula 2.0 97.9 07/14/18 23:00 97.7 63 18 134/47 (76) 98 Room Air 97.7 07/14/18 20:00 Nasal Cannula 2.0 07/14/18 19:47 99 Nasal Cannula 2.0 07/14/18 19:00 98.0 64 18 173/68 (103) 98 Room Air 98.0 07/14/18 14:22 97.8 75 18 123/54 (77) 97 Nasal Cannula 2.0 97.8 07/14/18 11:12 98.4 70 18 157/55 (89) 95 Nasal Cannula 2.0 98.4 07/14/18 09:36 89 126/45 07/14/18 09:35 89 126/45 07/14/18 09:35 89 126/45 07/14/18 09:34 89 126/45 07/14/18 07:30 Nasal Cannula 2.0 07/14/18 07:00 98.5 89 18 126/45 (72) 99 Nasal Cannula 2.0 98.5 Laboratory Laboratory Laboratory Tests Test 07/15/18 03:20 White Blood Count 5.4 x10^3/uL (4.0-11.0) Red Blood Count 2.98 x10^6/uL (3.50-5.40) Hemoglobin 9.5 g/dL (12.0-15.5) Hematocrit 28.0 % (36.0-47.0) Mean Corpuscular Volume 94 fL (79-100) Mean Corpuscular Hemoglobin 32 pg (25-35) Mean Corpuscular Hemoglobin Concent 34 g/dL (31-37) Red Cell Distribution Width 14.6 % (11.5-14.5) Platelet Count 243 x10^3/uL (140-400) Neutrophils (%) (Auto) 46 % (31-73) Lymphocytes (%) (Auto) 32 % (24-48) Monocytes (%) (Auto) 11 % (0-9) Eosinophils (%) (Auto) 11 % (0-3) Basophils (%) (Auto) 1 % (0-3) Neutrophils # (Auto) 2.5 x10^3uL (1.8-7.7) Lymphocytes # (Auto) 1.7 x10^3/uL (1.0-4.8) Monocytes # (Auto) 0.6 x10^3/uL (0.0-1.1) Eosinophils # (Auto) 0.6 x10^3/uL (0.0-0.7) Basophils # (Auto) 0.1 x10^3/uL (0.0-0.2) Sodium Level 145 mmol/L (136-145) Potassium Level 3.7 mmol/L (3.5-5.1) Chloride Level 105 mmol/L (98-107) Carbon Dioxide Level 31 mmol/L (21-32) Anion Gap 9 (6-14) Blood Urea Nitrogen 26 mg/dL (7-20) Creatinine 0.8 mg/dL (0.6-1.0) Estimated GFR (Cockcroft-Gault) 70.3 BUN/Creatinine Ratio 33 (6-20) Glucose Level 103 mg/dL (70-99) Calcium Level 8.5 mg/dL (8.5-10.1) Total Bilirubin 0.2 mg/dL (0.2-1.0) Aspartate Amino Transf (AST/SGOT) 23 U/L (15-37) Alanine Aminotransferase (ALT/SGPT) 24 U/L (14-59) Alkaline Phosphatase 66 U/L (46-116) Total Protein 5.7 g/dL (6.4-8.2) Albumin 3.0 g/dL (3.4-5.0) Albumin/Globulin Ratio 1.1 (1.0-1.7) Medication Medications Current Medications Alprazolam (Xanax) 0.25 mg PRN Q8HRS PRN PO ANXIETY / AGITATION Last administered on 07/14/18at 17:26; Start 07/14/18 at 17:15 Heparin Sodium/ Sodium Chloride 1,000 ml @ As Directed STK-MED ONCE .ROUTE ; Start 07/15/18 at 13:14; Stop 07/15/18 at 13:15; Status DC Iohexol (Omnipaque 300 Mg/ml) 100 ml STK-MED ONCE .ROUTE ; Start 07/15/18 at 13: 13; Stop 07/15/18 at 13:14; Status DC Lidocaine/Sodium Bicarbonate (Buffered Lidocaine 1%) 3 ml STK-MED ONCE .ROUTE ; Start 07/15/18 at 13:13; Stop 07/15/18 at 13:14; Status DC Non-Formulary Medication (Alendronate Sodium (Fosamax)) 1 tab WEEKLY PO ; Start 07/17/18 at 09:00; Status UNV Comment Review of Relevant I have reviewed the following items vidal (where applicable) has been applied. JOHN JJ MD Jul 15, 2018 13:40
[2018-07-15] MEDS: ANTI-COAG MONITOR BY PHARMACY. MC PRN (13:48)
[2018-07-15 15:00] VITALS: BP 116/68
[2018-07-15] MEDS: ALPRAZolam 0.25 MG TABLET PO PRN (15:33)
--- NOTE | 2018-07-15 15:45 | PDOC ---
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 I arranged for her to have a diagnostic cervical angiogram by interventional radiology but today she refused. Today I sat down with her and spent quite some time discussing again the reason risks the indications the benefits and why would like this diagnostic angiogram. After a long discussion she expressed understanding and wishes to proceed We'll hold Pritesh today, plan on diagnostic carotid angiograms by interventional radiology tomorrow. I spent over 30 minutes today again discussing all of this with the patient exclusive of any proceduresthis time was spent on counseling and coordination of care. Objective Objective Vital Signs Date Time Temp Pulse Resp B/P (MAP) Pulse Ox O2 Delivery O2 Flow Rate FiO2 07/15/18 11:40 Nasal Cannula 2.0 07/15/18 11:00 97.9 69 18 129/76 (93) 99 97.9 Intake and Output 07/15/18 07:00 Intake Total 600 ml Balance 600 ml Intake Oral 600 ml # Voids 5 Comment Review of Relevant I have reviewed the following items vidal (where applicable) has been applied. Labs Laboratory Tests Test 07/14/18 03:40 07/15/18 03:20 White Blood Count 5.5 x10^3/uL (4.0-11.0) 5.4 x10^3/uL (4.0-11.0) Red Blood Count 3.10 x10^6/uL (3.50-5.40) 2.98 x10^6/uL (3.50-5.40) Hemoglobin 9.5 g/dL (12.0-15.5) 9.5 g/dL (12.0-15.5) Hematocrit 29.2 % (36.0-47.0) 28.0 % (36.0-47.0) Mean Corpuscular Volume 94 fL (79-100) 94 fL (79-100) Mean Corpuscular Hemoglobin 31 pg (25-35) 32 pg (25-35) Mean Corpuscular Hemoglobin Concent 33 g/dL (31-37) 34 g/dL (31-37) Red Cell Distribution Width 14.5 % (11.5-14.5) 14.6 % (11.5-14.5) Platelet Count 224 x10^3/uL (140-400) 243 x10^3/uL (140-400) Neutrophils (%) (Auto) 46 % (31-73) 46 % (31-73) Lymphocytes (%) (Auto) 31 % (24-48) 32 % (24-48) Monocytes (%) (Auto) 11 % (0-9) 11 % (0-9) Eosinophils (%) (Auto) 11 % (0-3) 11 % (0-3) Basophils (%) (Auto) 1 % (0-3) 1 % (0-3) Neutrophils # (Auto) 2.5 x10^3uL (1.8-7.7) 2.5 x10^3uL (1.8-7.7) Lymphocytes # (Auto) 1.7 x10^3/uL (1.0-4.8) 1.7 x10^3/uL (1.0-4.8) Monocytes # (Auto) 0.6 x10^3/uL (0.0-1.1) 0.6 x10^3/uL (0.0-1.1) Eosinophils # (Auto) 0.6 x10^3/uL (0.0-0.7) 0.6 x10^3/uL (0.0-0.7) Basophils # (Auto) 0.1 x10^3/uL (0.0-0.2) 0.1 x10^3/uL (0.0-0.2) Sodium Level 144 mmol/L (136-145) 145 mmol/L (136-145) Potassium Level 3.6 mmol/L (3.5-5.1) 3.7 mmol/L (3.5-5.1) Chloride Level 106 mmol/L (98-107) 105 mmol/L (98-107) Carbon Dioxide Level 31 mmol/L (21-32) 31 mmol/L (21-32) Anion Gap 7 (6-14) 9 (6-14) Blood Urea Nitrogen 24 mg/dL (7-20) 26 mg/dL (7-20) Creatinine 0.7 mg/dL (0.6-1.0) 0.8 mg/dL (0.6-1.0) Estimated GFR (Cockcroft-Gault) 82.0 70.3 BUN/Creatinine Ratio 34 (6-20) 33 (6-20) Glucose Level 102 mg/dL (70-99) 103 mg/dL (70-99) Calcium Level 8.5 mg/dL (8.5-10.1) 8.5 mg/dL (8.5-10.1) Total Bilirubin 0.2 mg/dL (0.2-1.0) 0.2 mg/dL (0.2-1.0) Aspartate Amino Transf (AST/SGOT) 23 U/L (15-37) 23 U/L (15-37) Alanine Aminotransferase (ALT/SGPT) 21 U/L (14-59) 24 U/L (14-59) Alkaline Phosphatase 65 U/L (46-116) 66 U/L (46-116) Total Protein 5.8 g/dL (6.4-8.2) 5.7 g/dL (6.4-8.2) Albumin 2.9 g/dL (3.4-5.0) 3.0 g/dL (3.4-5.0) Albumin/Globulin Ratio 1.0 (1.0-1.7) 1.1 (1.0-1.7) Laboratory Tests Test 07/15/18 03:20 White Blood Count 5.4 x10^3/uL (4.0-11.0) Red Blood Count 2.98 x10^6/uL (3.50-5.40) Hemoglobin 9.5 g/dL (12.0-15.5) Hematocrit 28.0 % (36.0-47.0) Mean Corpuscular Volume 94 fL (79-100) Mean Corpuscular Hemoglobin 32 pg (25-35) Mean Corpuscular Hemoglobin Concent 34 g/dL (31-37) Red Cell Distribution Width 14.6 % (11.5-14.5) Platelet Count 243 x10^3/uL (140-400) Neutrophils (%) (Auto) 46 % (31-73) Lymphocytes (%) (Auto) 32 % (24-48) Monocytes (%) (Auto) 11 % (0-9) Eosinophils (%) (Auto) 11 % (0-3) Basophils (%) (Auto) 1 % (0-3) Neutrophils # (Auto) 2.5 x10^3uL (1.8-7.7) Lymphocytes # (Auto) 1.7 x10^3/uL (1.0-4.8) Monocytes # (Auto) 0.6 x10^3/uL (0.0-1.1) Eosinophils # (Auto) 0.6 x10^3/uL (0.0-0.7) Basophils # (Auto) 0.1 x10^3/uL (0.0-0.2) Sodium Level 145 mmol/L (136-145) Potassium Level 3.7 mmol/L (3.5-5.1) Chloride Level 105 mmol/L (98-107) Carbon Dioxide Level 31 mmol/L (21-32) Anion Gap 9 (6-14) Blood Urea Nitrogen 26 mg/dL (7-20) Creatinine 0.8 mg/dL (0.6-1.0) Estimated GFR (Cockcroft-Gault) 70.3 BUN/Creatinine Ratio 33 (6-20) Glucose Level 103 mg/dL (70-99) Calcium Level 8.5 mg/dL (8.5-10.1) Total Bilirubin 0.2 mg/dL (0.2-1.0) Aspartate Amino Transf (AST/SGOT) 23 U/L (15-37) Alanine Aminotransferase (ALT/SGPT) 24 U/L (14-59) Alkaline Phosphatase 66 U/L (46-116) Total Protein 5.7 g/dL (6.4-8.2) Albumin 3.0 g/dL (3.4-5.0) Albumin/Globulin Ratio 1.1 (1.0-1.7) Medications Current Medications Aspirin (Children'S Aspirin) 324 mg 1X ONCE PO Last administered on 07/10/18at 16:36; Start 07/10/18 at 15:45; Stop 07/10/18 at 16:30; Status DC Albuterol Sulfate (Ventolin Neb Soln) 2.5 mg PRN Q6HRS PRN INH SHORTNESS OF BREATH Last administered on 07/12/18at 13:21; Start 07/10/18 at 19:00 Alprazolam (Xanax) 0.75 mg PRN DAILY PRN PO ANXIETY / AGITATION Last administered on 07/13/18 21:44; Start 07/10/18 at 19:00 Apixaban (Eliquis) 5 mg BID PO Last administered on 07/15/18 12:46; Start 07/10 at 21:00 Aspirin (Children'S Aspirin) 81 mg DAILY PO Last administered on 07/15/18 08: 54; Start 07/11/18 at 09:00 Atorvastatin Calcium (Lipitor) 40 mg QHS PO Last administered on 07/14/18 21: 37; Start 07/10/18 at 21:00 Furosemide (Lasix) 10 mg DAILY PO Last administered on 07/15/18 08:54; Start 07/11/18 at 09:00 Isosorbide Mononitrate (Imdur) 30 mg DAILY PO Last administered on 07/15/18 08 :54; Start 07/11/18 at 09:00 Levothyroxine Sodium (Synthroid) 75 mcg DAILY07 PO Last administered on 06:15; Start 07/11/18 at 07:00; Stop 07/12/18 at 17:17; Status DC Lisinopril (Prinivil) 10 mg DAILY PO Last administered on 07/15/18 08:54; Start 07/11/18 at 09:00 Metoprolol Succinate (Toprol Xl) 25 mg DAILY PO Last administered on 07/15/18 08:54; Start 07/11/18 at 09:00 Nitroglycerin (Nitrostat) 0.4 mg PRN Q5MIN PRN SL CHEST PAIN; Start 07/10/18 at 19:00 Triamcinolone Acetonide (Kenalog) 1 mayank PRN BID PRN TP RASH; Start 07/10/18 at 19:00 Non-Formulary Medication (Alendronate Sodium (Fosamax)) 1 tab WEEKLY PO ; Start 07/17/18 at 09:00; Status UNV Calcium Carbonate/ Glycine (Oscal) 1,000 mg TIDAFTMEAL PO Last administered on 07/15/18 12:46; Start 07/11/18 at 09:00 Vitamin D (Vitamin D3) 2,000 unit DAILY PO Last administered on 07/15/18 08:52 ; Start 07/11/18 at 09:00 Diltiazem HCl (Cardizem 24hr Cd) 120 mg DAILY PO Last administered on 08:55; Start 07/11/18 at 09:00 Guaifenesin (Robitussin) 400 mg PRN BID PRN PO COUGH; Start 07/10/18 at 19:15 Memantine (Namenda) 10 mg DAILY PO ; Start 07/11/18 at 09:00; Stop 07/11/18 at 12: 59; Status DC Multivitamins (Thera M Plus) 1 tab DAILY PO Last administered on 07/15/18 08: 55; Start 07/11/18 at 09:00 Fish Oil (Fish Oil) 1,000 mg DAILY PO Last administered on 07/15/18 08:54; Start 07/11/18 at 09:00 Pantoprazole Sodium (Protonix) 40 mg DAILYAC PO Last administered on 07/15/18 08:55; Start 07/11/18 at 07:30 Non-Formulary Medication (Potassium Chloride ) 99 mg DAILY PO ; Start 07/11/18 at 09:00; Status UNV Pyridoxine HCl (Vitamin B-6) 200 mg DAILY PO Last administered on 07/15/18 08: 55; Start 07/11/18 at 09:00 Non-Formulary Medication (Ubidecarenone (Coenzyme Q10)) 10 mg DAILY PO ; Start 07/11/18 at 09:00; Status UNV Non-Formulary Medication 1 ea DAILY INH Last administered on 07/15/18 08:56; Start 07/11/18 at 09:00 Info (Anti-Coagulation Monitoring By Pharmacy) 1 each PRN DAILY PRN MC SEE COMMENTS Last administered on 07/15/18 13:48; Start 07/11/18 at 07:45 Acetaminophen (Tylenol) 650 mg PRN Q6HRS PRN PO TEMP > 100.4F; Start 07/11/18 at 08:45 Acetaminophen (Tylenol Supp) 650 mg PRN Q4HRS PRN GA TEMP > 100.4F; Start at 08:45 Memantine (Namenda) 10 mg QHS PO Last administered on 07/14/18 21:38; Start at 21:00 Magnesium Hydroxide (Milk Of Magnesia) 2,400 mg PRN DAILY PRN PO CONSTIPATION Last administered on 07/15/18at 08:56; Start 07/12/18 at 14:15 Albuterol Sulfate (Ventolin Neb Soln) 2.5 mg RTQID NEB Last administered on 04/23at 11:39; Start 07/12/18 at 20:00 Levothyroxine Sodium (Synthroid) 100 mcg DAILY07 PO Last administered on at 08:55; Start 07/13/18 at 07:00 Iohexol (Omnipaque 350 Mg/ml) 75 ml 1X ONCE IV Last administered on 07/13/18at 07:39; Start 07/13/18 at 07:15; Stop 07/13/18 at 07:16; Status DC Info (CONTRAST GIVEN -- Rx MONITORING) 1 each PRN DAILY PRN MC SEE COMMENTS; Start 07/13/18 at 07:15; Stop 07/15/18 at 07:14; Status DC Magnesium Hydroxide (Milk Of Magnesia) 2,400 mg 1X ONCE PO Last administered on 07/13/18at 12:36; Start 07/13/18 at 11:00; Stop 07/13/18 at 11:01; Status DC Alprazolam (Xanax) 0.25 mg PRN Q8HRS PRN PO ANXIETY / AGITATION Last administered on 07/15/18at 15:33; Start 07/14/18 at 17:15 Lidocaine/Sodium Bicarbonate (Buffered Lidocaine 1%) 3 ml STK-MED ONCE .ROUTE ; Start 07/15/18 at 13:13; Stop 07/15/18 at 13:14; Status DC Iohexol (Omnipaque 300 Mg/ml) 100 ml STK-MED ONCE .ROUTE ; Start 07/15/18 at 13: 13; Stop 07/15/18 at 13:14; Status DC Heparin Sodium/ Sodium Chloride 1,000 ml @ As Directed STK-MED ONCE .ROUTE ; Start 07/15/18 at 13:14; Stop 07/15/18 at 13:15; Status DC Active Scripts Active Reported Alprazolam 0.5 Mg Tablet 0.5 Mg PO PRN DAILY PRN Anoro Ellipta 62.5-25 Mcg Inh (Umeclidinium Brm/Vilanterol Tr) 1 Each Disk.w.dev 1 Each IH DAILY Triamcinolone Acetonide 0.1% Oint (Triamcinolone Acetonide) 15 Gm Oint...g. 1 Mayank TP PRN BID MIX WITH EUCERIN DIRECTED BY PHYSICIAN Synthroid (Levothyroxine Sodium) 75 Mcg Tablet 1 Tab PO DAILY B-6 (Pyridoxine HCl (Vitamin B6)) 200 Mg Tablet.er 200 Mg PO DAILY Proair Hfa Inhaler (Albuterol Sulfate) 8.5 Gm Hfa.aer.ad 2 Puff INH PRN Q6HRS PRN Potassium Chloride 20 Meq Tablet.er 99 Mg PO DAILY Protonix (Pantoprazole Sodium) 20 Mg Tablet.dr 40 Mg PO DAILY Fish Oil 1,000 mg Softgel ([place]-3/Dha/Epa/Fish Oil) 1,000 Mg Capsule 1,000 Mg PO DAILY NITROGLYCERIN SubLingual (Nitroglycerin) 0.4 Mg Tab.subl 0.4 Mg SL PRN Q5MIN PRN Multivitamins (Multivitamin) 1 Each Tablet 1 Tab PO DAILY Metoprolol Succinate ( Xl ) (Metoprolol Succinate) 25 Mg Tab.er.24h 25 Mg PO DAILY Namenda (Memantine Hcl) 10 Mg Tablet 10 Mg PO DAILY Lisinopril 10 Mg Tablet 10 Mg PO DAILY Isosorbide Mononitrate Er (Isosorbide Mononitrate) 30 Mg Tab.er.24h 30 Mg PO DAILY Guaifenesin 400 Mg Tablet 400 Mg PO PRN BID Lasix (Furosemide) 20 Mg Tablet 10 Mg PO DAILY Eliquis (Apixaban) 5 Mg Tablet 5 Mg PO BID Cardizem Cd (Diltiazem Hcl) 180 Mg Cap.er.24h 120 Mg PO DAILY Coenzyme Q10 (Ubidecarenone) 10 Mg Capsule 10 Mg PO DAILY Vitamin D (Cholecalciferol (Vitamin D3)) 2,000 Unit Capsule 1 Cap PO DAILY Calcium Carbonate 600 Mg Tablet 1,200 Mg PO TID Lipitor (Atorvastatin Calcium) 40 Mg Tablet 1 Tab PO QHS Aspirin 81 Mg Tab.chew 1 Tab PO DAILY Xanax (Alprazolam) 0.5 Mg Tablet 0.75 Mg PO PRN DAILY PRN Fosamax (Alendronate Sodium) 70 Mg Tablet 1 Tab PO WEEKLY Proair Hfa Inhaler (Albuterol Sulfate) 8.5 Gm Hfa.aer.ad 1 Puff INH PRN Q6HRS PRN Vitals/I & O Vital Sign - Last 24 Hours 07/14/18 07/14/18 07/14/18 07/14/18 19:00 19:47 20:00 23:00 Temp 98.0 97.7 98.0 97.7 Pulse 64 63 Resp 18 18 B/P (MAP) 173/68 (103) 134/47 (76) Pulse Ox 98 99 98 O2 Delivery Room Air Nasal Cannula Nasal Cannula Room Air O2 Flow Rate 2.0 2.0 07/15/18 07/15/18 07/15/18 07/15/18 03:25 07:00 07:30 07:50 Temp 97.9 98.0 97.9 98.0 Pulse 65 65 Resp 18 18 B/P (MAP) 124/44 (70) 125/55 (78) Pulse Ox 96 99 99 O2 Delivery Nasal Cannula Nasal Cannula Nasal Cannula Nasal Cannula O2 Flow Rate 2.0 2.0 2.0 2.0 07/15/18 07/15/18 07/15/18 07/15/18 08:54 08:54 08:54 08:55 Pulse 65 65 65 65 B/P (MAP) 125/55 125/55 125/55 125/55 07/15/18 07/15/18 11:00 11:40 Temp 97.9 97.9 Pulse 69 Resp 18 B/P (MAP) 129/76 (93) Pulse Ox 99 O2 Delivery Nasal Cannula Nasal Cannula O2 Flow Rate 2.0 2.0 Intake and Output 07/14/18 07/14/18 07/15/18 15:00 23:00 07:00 Intake Total 60 ml 300 ml 240 ml Balance 60 ml 300 ml 240 ml DANY NEGRON MD Jul 15, 2018 15:45
[2018-07-15 19:00] VITALS: BP 121/47
--- NOTE | 2018-07-15 20:44 | PDOC ---
PROGRESS NOTES Assessment Assessment Chronic dementia, most likely a frontotemporal type given the language difficulties. Elevated TSH Carotid artery high grade stenosis, bilaterally. Right eye vision loss x 3 months. Pulmonary hypertension and pulmonic valve regurgitation. COPD. Pulmonary nodules. Former smoker x 53 years. No evidence of acute CVA this time. RECOMMENDATIONS/PLAN: On increased Synthroid dose Cardiac and vascular consultations appreciated She is on Eliquis and aspirin already Consulted Vascular Surgery. Placement. Patient stated wanted to protect her left eye by surgery since already loss vision in right eye. PAST MEDICAL AND SURGICAL HISTORY: COPD and hernia repair, dementia. ALLERGIES: NKDA. FAMILY HISTORY: Coronary artery disease. SOCIAL HISTORY: She stated she lived at home alone for about 23 years. She smoked 1 pack a day from age 14 to 67. She quit smoking 6 years ago. No drinking or drugs. MEDICATIONS: See MAR. MEDICATIONS: Refer to MAR REVIEW OF SYSTEMS: Constitutional: No malnutrition, weight loss, cachexia. Head: No traumatic brain or head injury. Skin: No edema, or rash. Ear: No infection. Eyes: Right eye vision loss. Nose: No bleeding or purulent discharges. Hearing: Hearing loss. Neck: No injury. Breast: No history of cancer, masses, or discharges. Cardiac: HTN. CAD. Pulmonary: COPD. GI: No GI Ulcer, GI bleeding Urinary/genital: UTI. Endocrine: No cousin face, craniofacial dysmorphism, polydactyly. Skeletomuscular: No muscular atrophy, deformity. Neurological: see HP. Psychiatric: Denies drug use/abuse. Otherwise, not [id number] review of systems. PHYSICAL EXAMINATION: General appearance in subacute distress. HEENT: Normocephalic and nontraumatic. Eyes, nose, ears, and throat are unremarkable. Hearing decrease. Neck is supple. No lymphadenopathy. Bruits are heard over the carotid artery. No Crepitus. Cardiovascular: S1, S2, regular rate and rhythm. Pulmonary: Clear to auscultation bilaterally. Abdomen: Bowel sounds are positive. Abdomen is soft, nontender, and nondistended. Extremities: No rash, lesions, or edema. No restriction of range of motion NEUROLOGICAL EXAMINATION: Awake. Oriented partially to time, place but knew person. PERRL. EOMI. CN: no focal findings. Muscle tone: within normal. Muscle strength: 4+ DTR: 2 Plantar reflex: Neutral response bilaterally Gait: able to walk from bed to chair. Sensory exam: no abnormal findings. No cerebellar signs elicited. F-T-N test fine. Objective Objective Vital Signs Date Time Temp Pulse Resp B/P (MAP) Pulse Ox O2 Delivery O2 Flow Rate FiO2 07/15/18 20:07 Room Air 07/15/18 19:52 97 2.0 07/15/18 19:00 98.3 94 18 121/47 (71) 98.3 Intake and Output 07/15/18 07:00 Intake Total 600 ml Balance 600 ml Intake Oral 600 ml # Voids 5 Vitals Signs Vitals VS - Last 72 Hours, by Label Date Time Temp Pulse Resp B/P (MAP) Pulse Ox O2 Delivery O2 Flow Rate FiO2 07/15/18 20:07 Room Air 07/15/18 19:52 97 Nasal Cannula 2.0 07/15/18 19:00 98.3 94 18 121/47 (71) 97 98.3 07/15/18 16:05 Nasal Cannula 2.0 07/15/18 15:00 97.7 97 18 116/68 (84) 100 97.7 07/15/18 11:40 Nasal Cannula 2.0 07/15/18 11:00 97.9 69 18 129/76 (93) 99 Nasal Cannula 2.0 97.9 07/15/18 08:55 65 125/55 07/15/18 08:54 65 125/55 07/15/18 08:54 65 125/55 07/15/18 08:54 65 125/55 07/15/18 07:50 99 Nasal Cannula 2.0 07/15/18 07:30 Nasal Cannula 2.0 07/15/18 07:00 98.0 65 18 125/55 (78) 99 Nasal Cannula 2.0 98.0 07/15/18 03:25 97.9 65 18 124/44 (70) 96 Nasal Cannula 2.0 97.9 07/14/18 23:00 97.7 63 18 134/47 (76) 98 Room Air 97.7 07/14/18 20:00 Nasal Cannula 2.0 07/14/18 19:47 99 Nasal Cannula 2.0 07/14/18 19:00 98.0 64 18 173/68 (103) 98 Room Air 98.0 07/14/18 14:22 97.8 75 18 123/54 (77) 97 Nasal Cannula 2.0 97.8 07/14/18 11:12 98.4 70 18 157/55 (89) 95 Nasal Cannula 2.0 98.4 07/14/18 09:36 89 126/45 07/14/18 09:35 89 126/45 07/14/18 09:35 89 126/45 07/14/18 09:34 89 126/45 07/14/18 07:30 Nasal Cannula 2.0 07/14/18 07:00 98.5 89 18 126/45 (72) 99 Nasal Cannula 2.0 98.5 Laboratory Laboratory Laboratory Tests Test 07/15/18 03:20 White Blood Count 5.4 x10^3/uL (4.0-11.0) Red Blood Count 2.98 x10^6/uL (3.50-5.40) Hemoglobin 9.5 g/dL (12.0-15.5) Hematocrit 28.0 % (36.0-47.0) Mean Corpuscular Volume 94 fL (79-100) Mean Corpuscular Hemoglobin 32 pg (25-35) Mean Corpuscular Hemoglobin Concent 34 g/dL (31-37) Red Cell Distribution Width 14.6 % (11.5-14.5) Platelet Count 243 x10^3/uL (140-400) Neutrophils (%) (Auto) 46 % (31-73) Lymphocytes (%) (Auto) 32 % (24-48) Monocytes (%) (Auto) 11 % (0-9) Eosinophils (%) (Auto) 11 % (0-3) Basophils (%) (Auto) 1 % (0-3) Neutrophils # (Auto) 2.5 x10^3uL (1.8-7.7) Lymphocytes # (Auto) 1.7 x10^3/uL (1.0-4.8) Monocytes # (Auto) 0.6 x10^3/uL (0.0-1.1) Eosinophils # (Auto) 0.6 x10^3/uL (0.0-0.7) Basophils # (Auto) 0.1 x10^3/uL (0.0-0.2) Sodium Level 145 mmol/L (136-145) Potassium Level 3.7 mmol/L (3.5-5.1) Chloride Level 105 mmol/L (98-107) Carbon Dioxide Level 31 mmol/L (21-32) Anion Gap 9 (6-14) Blood Urea Nitrogen 26 mg/dL (7-20) Creatinine 0.8 mg/dL (0.6-1.0) Estimated GFR (Cockcroft-Gault) 70.3 BUN/Creatinine Ratio 33 (6-20) Glucose Level 103 mg/dL (70-99) Calcium Level 8.5 mg/dL (8.5-10.1) Total Bilirubin 0.2 mg/dL (0.2-1.0) Aspartate Amino Transf (AST/SGOT) 23 U/L (15-37) Alanine Aminotransferase (ALT/SGPT) 24 U/L (14-59) Alkaline Phosphatase 66 U/L (46-116) Total Protein 5.7 g/dL (6.4-8.2) Albumin 3.0 g/dL (3.4-5.0) Albumin/Globulin Ratio 1.1 (1.0-1.7) Medication Medications Current Medications Heparin Sodium/ Sodium Chloride 1,000 ml @ As Directed STK-MED ONCE .ROUTE ; Start 07/15/18 at 13:14; Stop 07/15/18 at 13:15; Status DC Iohexol (Omnipaque 300 Mg/ml) 100 ml STK-MED ONCE .ROUTE ; Start 07/15/18 at 13: 13; Stop 07/15/18 at 13:14; Status DC Lidocaine/Sodium Bicarbonate (Buffered Lidocaine 1%) 3 ml STK-MED ONCE .ROUTE ; Start 07/15/18 at 13:13; Stop 07/15/18 at 13:14; Status DC Non-Formulary Medication (Alendronate Sodium (Fosamax)) 1 tab WEEKLY PO ; Start 07/17/18 at 09:00; Status UNV Comment Review of Relevant I have reviewed the following items vidal (where applicable) has been applied. JOHN JJ MD Jul 15, 2018 20:44
[2018-07-15] MEDS: MEMANTINE 10 MG TABLET. PO SCH (20:50)
[2018-07-15] MEDS: ATORVASTATIN CALCIUM 40 MG TABLET. PO SCH (20:50)
[2018-07-15 22:22] VITALS: BP 114/46
[2018-07-16] VITALS (7 sets, daily range): BP systolic 105–177; BP diastolic 39–76
[2018-07-16 05:27] LABS: BASO # 0.1 x10^3/uL (0.0-0.2); BASO % 1 % (0-3); EOS # 0.6 x10^3/uL (0.0-0.7); EOS % 10 % (0-3); HEMATOCRIT 30.7 % (36.0-47.0); LYMPH # 1.9 x10^3/uL (1.0-4.8); LYMPH % 32 % (24-48); MEAN CORPUSCULAR HEMOGLOBIN 31 pg (25-35); MEAN CORPUSCULAR HGB CONC 33 g/dL (31-37); MEAN CORPUSCULAR VOLUME 95 fL (79-100); MONO # 0.7 x10^3/uL (0.0-1.1); MONO % 11 % (0-9); NEUT # 2.7 x10^3uL (1.8-7.7); NEUT % 46 % (31-73); PLATELET COUNT 249 x10^3/uL (140-400); RED BLOOD COUNT 3.23 x10^6/uL (3.50-5.40); RED CELL DISTRIBUTION WIDTH 14.9 % (11.5-14.5)
[2018-07-16 05:50] LABS: ALBUMIN/GLOBULIN RATIO 1.1 (1.0-1.7); CALCIUM 8.6 mg/dL (8.5-10.1); CREATININE 0.9 mg/dL (0.6-1.0); GFR 61.4; POTASSIUM 4.4 mmol/L (3.5-5.1); TOTAL BILIRUBIN 0.2 mg/dL (0.2-1.0); TOTAL PROTEIN 5.8 g/dL (6.4-8.2)
[2018-07-16] MEDS: LEVOTHYROXINE 100 MCG TABLET PO SCH (06:38)
[2018-07-16] MEDS: APIXABAN 5 MG TABLET. PO SCH ×2 (07:34→20:01)
[2018-07-16] MEDS: ALBUTEROL SULFATE 2.5 MG/3 ML NEBU. NEB SCH ×4 (08:00→19:41)
[2018-07-16] MEDS: PANTOPRAZOLE 40 MG TABLET.DR. PO SCH (08:06)
[2018-07-16] MEDS: CHOLECALCIFEROL (VITAMIN D3) 1,000 UNIT TABLET PO SCH (08:54)
[2018-07-16] MEDS: ANORO ELLIPTA INHALATION INH SCH (08:54)
[2018-07-16] MEDS: ISOSORBIDE MONONITRATE ER 30 MG TAB.ER.24H PO SCH (08:55)
[2018-07-16] MEDS: MULTIVITAMIN with MINERAL TABLET. PO SCH (08:56)
[2018-07-16] MEDS: ASPIRIN CHEWABLE 81 MG TABLET. PO SCH (08:56)
[2018-07-16] MEDS: FUROSEMIDE 20 MG TABLET PO SCH (08:56)
[2018-07-16] MEDS: PYRIDOXINE 50 MG TABLET. PO SCH (08:58)
[2018-07-16] MEDS: OMEGA-3 FATTY ACIDS/FISH OIL 1,000 MG CAPSULE. PO SCH (08:58)
[2018-07-16] MEDS: CALCIUM CARBONATE 500 MG TABLET PO SCH ×3 (08:59→17:52)
[2018-07-16] MEDS: LISINOPRIL 10 MG TABLET PO SCH (08:59)
[2018-07-16] MEDS: MAGNESIUM HYDROXIDE 2,400 MG/30 ML ORAL.SUSP. PO PRN (08:59)
[2018-07-16] MEDS: METOPROLOL SUCC 24HR ER 25 MG TAB.ER.24H. PO SCH (09:01)
--- NOTE | 2018-07-16 12:14 | PDOC ---
PROGRESS NOTES Chief Complaint Chief Complaint Speech Difficulty Confusion CVA? Memory loss- Dementia? 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 07/[address] ANGIOGRAM TODAY, PT WANTS TO GO HOME ALONE, HIGH RISK D/C LIVES ALONE WILL CONSULT PAT History of Present Illness History of Present Illness Ms Jimenez is a 73 yo F who was admitted for confusion/difficulty speaking, PMH COPD and former smoker She was seen and examined in her room this morning, NAD less expressive aphasia, completed thoughts , not completely She states that when her anxiety increases, her ability to express her thoughts decreases Discussed her medications, treatments, and her concerns at length Discussed with RN 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 This is nonspecific and could be related to acute or chronic bronchial inflammatory process or chronic aspiration. CTA neck was reviewed with , occlusion vs a string sign -- Dx angiogram / if right CEA needed. UNDERSTANDS RISK OF CVA OR WITH HIGH RISK SURGERY complex decision making involved Vitals Vitals Vital Signs Date Time Temp Pulse Resp B/P (MAP) Pulse Ox O2 Delivery O2 Flow Rate FiO2 07/16/18 11:17 96 Nasal Cannula 2.0 07/16/18 11:00 97.7 67 20 173/76 (108) 97.7 Physical Exam Physical Exam DELAYED,// INCOMPLETE RESPONSE TO QUESTIONS General: Alert, Oriented X3, Cooperative, No acute distress Heart: Regular rate, No murmurs, Other (prominent L sided carotid bruit) Lungs: Clear Abdomen: Normal bowel sounds, Soft, Other (supraumbilical ventral hernia) Extremities: No clubbing, No edema Skin: No rashes, No breakdown, No significant lesion Labs LABS Laboratory Tests Test 07/16/18 04:35 White Blood Count 6.0 x10^3/uL (4.0-11.0) Red Blood Count 3.23 x10^6/uL (3.50-5.40) Hemoglobin 10.0 g/dL (12.0-15.5) Hematocrit 30.7 % (36.0-47.0) Mean Corpuscular Volume 95 fL (79-100) Mean Corpuscular Hemoglobin 31 pg (25-35) Mean Corpuscular Hemoglobin Concent 33 g/dL (31-37) Red Cell Distribution Width 14.9 % (11.5-14.5) Platelet Count 249 x10^3/uL (140-400) Neutrophils (%) (Auto) 46 % (31-73) Lymphocytes (%) (Auto) 32 % (24-48) Monocytes (%) (Auto) 11 % (0-9) Eosinophils (%) (Auto) 10 % (0-3) Basophils (%) (Auto) 1 % (0-3) Neutrophils # (Auto) 2.7 x10^3uL (1.8-7.7) Lymphocytes # (Auto) 1.9 x10^3/uL (1.0-4.8) Monocytes # (Auto) 0.7 x10^3/uL (0.0-1.1) Eosinophils # (Auto) 0.6 x10^3/uL (0.0-0.7) Basophils # (Auto) 0.1 x10^3/uL (0.0-0.2) Sodium Level 145 mmol/L (136-145) Potassium Level 4.4 mmol/L (3.5-5.1) Chloride Level 107 mmol/L (98-107) Carbon Dioxide Level 32 mmol/L (21-32) Anion Gap 6 (6-14) Blood Urea Nitrogen 25 mg/dL (7-20) Creatinine 0.9 mg/dL (0.6-1.0) Estimated GFR (Cockcroft-Gault) 61.4 BUN/Creatinine Ratio 28 (6-20) Glucose Level 102 mg/dL (70-99) Calcium Level 8.6 mg/dL (8.5-10.1) Total Bilirubin 0.2 mg/dL (0.2-1.0) Aspartate Amino Transf (AST/SGOT) 24 U/L (15-37) Alanine Aminotransferase (ALT/SGPT) 24 U/L (14-59) Alkaline Phosphatase 64 U/L (46-116) Total Protein 5.8 g/dL (6.4-8.2) Albumin 3.0 g/dL (3.4-5.0) Albumin/Globulin Ratio 1.1 (1.0-1.7) Comment Review of Relevant I have reviewed the following items vidal (where applicable) has been applied. Labs Laboratory Tests Test 07/15/18 03:20 07/16/18 04:35 White Blood Count 5.4 x10^3/uL (4.0-11.0) 6.0 x10^3/uL (4.0-11.0) Red Blood Count 2.98 x10^6/uL (3.50-5.40) 3.23 x10^6/uL (3.50-5.40) Hemoglobin 9.5 g/dL (12.0-15.5) 10.0 g/dL (12.0-15.5) Hematocrit 28.0 % (36.0-47.0) 30.7 % (36.0-47.0) Mean Corpuscular Volume 94 fL (79-100) 95 fL (79-100) Mean Corpuscular Hemoglobin 32 pg (25-35) 31 pg (25-35) Mean Corpuscular Hemoglobin Concent 34 g/dL (31-37) 33 g/dL (31-37) Red Cell Distribution Width 14.6 % (11.5-14.5) 14.9 % (11.5-14.5) Platelet Count 243 x10^3/uL (140-400) 249 x10^3/uL (140-400) Neutrophils (%) (Auto) 46 % (31-73) 46 % (31-73) Lymphocytes (%) (Auto) 32 % (24-48) 32 % (24-48) Monocytes (%) (Auto) 11 % (0-9) 11 % (0-9) Eosinophils (%) (Auto) 11 % (0-3) 10 % (0-3) Basophils (%) (Auto) 1 % (0-3) 1 % (0-3) Neutrophils # (Auto) 2.5 x10^3uL (1.8-7.7) 2.7 x10^3uL (1.8-7.7) Lymphocytes # (Auto) 1.7 x10^3/uL (1.0-4.8) 1.9 x10^3/uL (1.0-4.8) Monocytes # (Auto) 0.6 x10^3/uL (0.0-1.1) 0.7 x10^3/uL (0.0-1.1) Eosinophils # (Auto) 0.6 x10^3/uL (0.0-0.7) 0.6 x10^3/uL (0.0-0.7) Basophils # (Auto) 0.1 x10^3/uL (0.0-0.2) 0.1 x10^3/uL (0.0-0.2) Sodium Level 145 mmol/L (136-145) 145 mmol/L (136-145) Potassium Level 3.7 mmol/L (3.5-5.1) 4.4 mmol/L (3.5-5.1) Chloride Level 105 mmol/L (98-107) 107 mmol/L (98-107) Carbon Dioxide Level 31 mmol/L (21-32) 32 mmol/L (21-32) Anion Gap 9 (6-14) 6 (6-14) Blood Urea Nitrogen 26 mg/dL (7-20) 25 mg/dL (7-20) Creatinine 0.8 mg/dL (0.6-1.0) 0.9 mg/dL (0.6-1.0) Estimated GFR (Cockcroft-Gault) 70.3 61.4 BUN/Creatinine Ratio 33 (6-20) 28 (6-20) Glucose Level 103 mg/dL (70-99) 102 mg/dL (70-99) Calcium Level 8.5 mg/dL (8.5-10.1) 8.6 mg/dL (8.5-10.1) Total Bilirubin 0.2 mg/dL (0.2-1.0) 0.2 mg/dL (0.2-1.0) Aspartate Amino Transf (AST/SGOT) 23 U/L (15-37) 24 U/L (15-37) Alanine Aminotransferase (ALT/SGPT) 24 U/L (14-59) 24 U/L (14-59) Alkaline Phosphatase 66 U/L (46-116) 64 U/L (46-116) Total Protein 5.7 g/dL (6.4-8.2) 5.8 g/dL (6.4-8.2) Albumin 3.0 g/dL (3.4-5.0) 3.0 g/dL (3.4-5.0) Albumin/Globulin Ratio 1.1 (1.0-1.7) 1.1 (1.0-1.7) Laboratory Tests Test 07/16/18 04:35 White Blood Count 6.0 x10^3/uL (4.0-11.0) Red Blood Count 3.23 x10^6/uL (3.50-5.40) Hemoglobin 10.0 g/dL (12.0-15.5) Hematocrit 30.7 % (36.0-47.0) Mean Corpuscular Volume 95 fL (79-100) Mean Corpuscular Hemoglobin 31 pg (25-35) Mean Corpuscular Hemoglobin Concent 33 g/dL (31-37) Red Cell Distribution Width 14.9 % (11.5-14.5) Platelet Count 249 x10^3/uL (140-400) Neutrophils (%) (Auto) 46 % (31-73) Lymphocytes (%) (Auto) 32 % (24-48) Monocytes (%) (Auto) 11 % (0-9) Eosinophils (%) (Auto) 10 % (0-3) Basophils (%) (Auto) 1 % (0-3) Neutrophils # (Auto) 2.7 x10^3uL (1.8-7.7) Lymphocytes # (Auto) 1.9 x10^3/uL (1.0-4.8) Monocytes # (Auto) 0.7 x10^3/uL (0.0-1.1) Eosinophils # (Auto) 0.6 x10^3/uL (0.0-0.7) Basophils # (Auto) 0.1 x10^3/uL (0.0-0.2) Sodium Level 145 mmol/L (136-145) Potassium Level 4.4 mmol/L (3.5-5.1) Chloride Level 107 mmol/L (98-107) Carbon Dioxide Level 32 mmol/L (21-32) Anion Gap 6 (6-14) Blood Urea Nitrogen 25 mg/dL (7-20) Creatinine 0.9 mg/dL (0.6-1.0) Estimated GFR (Cockcroft-Gault) 61.4 BUN/Creatinine Ratio 28 (6-20) Glucose Level 102 mg/dL (70-99) Calcium Level 8.6 mg/dL (8.5-10.1) Total Bilirubin 0.2 mg/dL (0.2-1.0) Aspartate Amino Transf (AST/SGOT) 24 U/L (15-37) Alanine Aminotransferase (ALT/SGPT) 24 U/L (14-59) Alkaline Phosphatase 64 U/L (46-116) Total Protein 5.8 g/dL (6.4-8.2) Albumin 3.0 g/dL (3.4-5.0) Albumin/Globulin Ratio 1.1 (1.0-1.7) Medications Current Medications Aspirin (Children'S Aspirin) 324 mg 1X ONCE PO Last administered on 07/10/18 16:36; Start 07/10/18 at 15:45; Stop 07/10/18 at 16:30; Status DC Albuterol Sulfate (Ventolin Neb Soln) 2.5 mg PRN Q6HRS PRN INH SHORTNESS OF BREATH Last administered on 07/12/18 13:21; Start 07/10/18 at 19:00 Alprazolam (Xanax) 0.75 mg PRN DAILY PRN PO ANXIETY / AGITATION Last administered on 07/13/18at 21:44; Start 07/10/18 at 19:00; Stop 07/15/18 at 16:17 ; Status DC Apixaban (Eliquis) 5 mg BID PO Last administered on 07/15/18 12:46; Start 07/10 at 21:00 Aspirin (Children'S Aspirin) 81 mg DAILY PO Last administered on 07/16/18 08: 56; Start 07/11/18 at 09:00 Atorvastatin Calcium (Lipitor) 40 mg QHS PO Last administered on 07/15/18 20: 50; Start 07/10/18 at 21:00 Furosemide (Lasix) 10 mg DAILY PO Last administered on 07/16/18 08:56; Start 07/11/18 at 09:00 Isosorbide Mononitrate (Imdur) 30 mg DAILY PO Last administered on 07/16/18 08 :55; Start 07/11/18 at 09:00 Levothyroxine Sodium (Synthroid) 75 mcg DAILY07 PO Last administered on 06:15; Start 07/11/18 at 07:00; Stop 07/12/18 at 17:17; Status DC Lisinopril (Prinivil) 10 mg DAILY PO Last administered on 07/16/18 08:59; Start 07/11/18 at 09:00 Metoprolol Succinate (Toprol Xl) 25 mg DAILY PO Last administered on 07/16/18 09:01; Start 07/11/18 at 09:00 Nitroglycerin (Nitrostat) 0.4 mg PRN Q5MIN PRN SL CHEST PAIN; Start 07/10/18 at 19:00 Triamcinolone Acetonide (Kenalog) 1 mayank PRN BID PRN TP RASH; Start 07/10/18 at 19:00 Non-Formulary Medication (Alendronate Sodium (Fosamax)) 1 tab WEEKLY PO ; Start 07/17/18 at 09:00; Status UNV Calcium Carbonate/ Glycine (Oscal) 1,000 mg TIDAFTMEAL PO Last administered on 07/16/18 08:59; Start 07/11/18 at 09:00 Vitamin D (Vitamin D3) 2,000 unit DAILY PO Last administered on 07/16/18 08:54 ; Start 07/11/18 at 09:00 Diltiazem HCl (Cardizem 24hr Cd) 120 mg DAILY PO Last administered on 08:57; Start 07/11/18 at 09:00 Guaifenesin (Robitussin) 400 mg PRN BID PRN PO COUGH; Start 07/10/18 at 19:15 Memantine (Namenda) 10 mg DAILY PO ; Start 07/11/18 at 09:00; Stop 07/11/18 at 12: 59; Status DC Multivitamins (Thera M Plus) 1 tab DAILY PO Last administered on 07/16/18 08: 56; Start 07/11/18 at 09:00 Fish Oil (Fish Oil) 1,000 mg DAILY PO Last administered on 07/16/18 08:58; Start 07/11/18 at 09:00 Pantoprazole Sodium (Protonix) 40 mg DAILYAC PO Last administered on 07/16/18 08:06; Start 07/11/18 at 07:30 Non-Formulary Medication (Potassium Chloride ) 99 mg DAILY PO ; Start 07/11/18 at 09:00; Status UNV Pyridoxine HCl (Vitamin B-6) 200 mg DAILY PO Last administered on 07/16/18 08: 58; Start 07/11/18 at 09:00 Non-Formulary Medication (Ubidecarenone (Coenzyme Q10)) 10 mg DAILY PO ; Start 07/11/18 at 09:00; Status UNV Non-Formulary Medication 1 ea DAILY INH Last administered on 07/16/18 08:54; Start 07/11/18 at 09:00 Info (Anti-Coagulation Monitoring By Pharmacy) 1 each PRN DAILY PRN MC SEE COMMENTS Last administered on 07/15/18 13:48; Start 07/11/18 at 07:45 Acetaminophen (Tylenol) 650 mg PRN Q6HRS PRN PO TEMP > 100.4F; Start 07/11/18 at 08:45 Acetaminophen (Tylenol Supp) 650 mg PRN Q4HRS PRN NM TEMP > 100.4F; Start at 08:45 Memantine (Namenda) 10 mg QHS PO Last administered on 07/15/18 20:50; Start at 21:00 Magnesium Hydroxide (Milk Of Magnesia) 2,400 mg PRN DAILY PRN PO CONSTIPATION Last administered on 07/16/18 08:59; Start 07/12/18 at 14:15 Albuterol Sulfate (Ventolin Neb Soln) 2.5 mg RTQID NEB Last administered on 11:17; Start 07/12/18 at 20:00 Levothyroxine Sodium (Synthroid) 100 mcg DAILY07 PO Last administered on 06:38; Start 07/13/18 at 07:00 Iohexol (Omnipaque 350 Mg/ml) 75 ml 1X ONCE IV Last administered on 07/13/18at 07:39; Start 07/13/18 at 07:15; Stop 07/13/18 at 07:16; Status DC Info (CONTRAST GIVEN -- Rx MONITORING) 1 each PRN DAILY PRN MC SEE COMMENTS; Start 07/13/18 at 07:15; Stop 07/15/18 at 07:14; Status DC Magnesium Hydroxide (Milk Of Magnesia) 2,400 mg 1X ONCE PO Last administered on 07/13/18 12:36; Start 07/13/18 at 11:00; Stop 07/13/18 at 11:01; Status DC Alprazolam (Xanax) 0.25 mg PRN Q8HRS PRN PO ANXIETY / AGITATION Last administered on 07/15/18at 15:33; Start 07/14/18 at 17:15 Lidocaine/Sodium Bicarbonate (Buffered Lidocaine 1%) 3 ml STK-MED ONCE .ROUTE ; Start 07/15/18 at 13:13; Stop 07/15/18 at 13:14; Status DC Iohexol (Omnipaque 300 Mg/ml) 100 ml STK-MED ONCE .ROUTE ; Start 07/15/18 at 13: 13; Stop 07/15/18 at 13:14; Status DC Heparin Sodium/ Sodium Chloride 1,000 ml @ As Directed STK-MED ONCE .ROUTE ; Start 07/15/18 at 13:14; Stop 07/15/18 at 13:15; Status DC Active Scripts Active Reported Alprazolam 0.5 Mg Tablet 0.5 Mg PO PRN DAILY PRN Anoro Ellipta 62.5-25 Mcg Inh (Umeclidinium Brm/Vilanterol Tr) 1 Each Disk.w.dev 1 Each IH DAILY Triamcinolone Acetonide 0.1% Oint (Triamcinolone Acetonide) 15 Gm Oint...g. 1 Mayank TP PRN BID MIX WITH EUCERIN DIRECTED BY PHYSICIAN Synthroid (Levothyroxine Sodium) 75 Mcg Tablet 1 Tab PO DAILY B-6 (Pyridoxine HCl (Vitamin B6)) 200 Mg Tablet.er 200 Mg PO DAILY Proair Hfa Inhaler (Albuterol Sulfate) 8.5 Gm Hfa.aer.ad 2 Puff INH PRN Q6HRS PRN Potassium Chloride 20 Meq Tablet.er 99 Mg PO DAILY Protonix (Pantoprazole Sodium) 20 Mg Tablet.dr 40 Mg PO DAILY Fish Oil 1,000 mg Softgel ([place]-3/Dha/Epa/Fish Oil) 1,000 Mg Capsule 1,000 Mg PO DAILY NITROGLYCERIN SubLingual (Nitroglycerin) 0.4 Mg Tab.subl 0.4 Mg SL PRN Q5MIN PRN Multivitamins (Multivitamin) 1 Each Tablet 1 Tab PO DAILY Metoprolol Succinate ( Xl ) (Metoprolol Succinate) 25 Mg Tab.er.24h 25 Mg PO DAILY Namenda (Memantine Hcl) 10 Mg Tablet 10 Mg PO DAILY Lisinopril 10 Mg Tablet 10 Mg PO DAILY Isosorbide Mononitrate Er (Isosorbide Mononitrate) 30 Mg Tab.er.24h 30 Mg PO DAILY Guaifenesin 400 Mg Tablet 400 Mg PO PRN BID Lasix (Furosemide) 20 Mg Tablet 10 Mg PO DAILY Eliquis (Apixaban) 5 Mg Tablet 5 Mg PO BID Cardizem Cd (Diltiazem Hcl) 180 Mg Cap.er.24h 120 Mg PO DAILY Coenzyme Q10 (Ubidecarenone) 10 Mg Capsule 10 Mg PO DAILY Vitamin D (Cholecalciferol (Vitamin D3)) 2,000 Unit Capsule 1 Cap PO DAILY Calcium Carbonate 600 Mg Tablet 1,200 Mg PO TID Lipitor (Atorvastatin Calcium) 40 Mg Tablet 1 Tab PO QHS Aspirin 81 Mg Tab.chew 1 Tab PO DAILY Xanax (Alprazolam) 0.5 Mg Tablet 0.75 Mg PO PRN DAILY PRN Fosamax (Alendronate Sodium) 70 Mg Tablet 1 Tab PO WEEKLY Proair Hfa Inhaler (Albuterol Sulfate) 8.5 Gm Hfa.aer.ad 1 Puff INH PRN Q6HRS PRN Vitals/I & O Vital Sign - Last 24 Hours 07/15/18 07/15/18 07/15/18 07/15/18 15:00 16:05 19:00 19:52 Temp 97.7 98.3 97.7 98.3 Pulse 97 94 Resp 18 18 B/P (MAP) 116/68 (84) 121/47 (71) Pulse Ox 100 97 97 O2 Delivery Nasal Cannula Nasal Cannula O2 Flow Rate 2.0 2.0 07/15/18 07/15/18 07/16/18 07/16/18 20:07 22:22 02:33 07:00 Temp 98.0 98.1 97.7 98.0 98.1 97.7 Pulse 76 66 69 Resp 18 16 20 B/P (MAP) 114/46 (68) 138/57 (84) 177/72 (107) Pulse Ox 98 98 90 O2 Delivery Room Air Nasal Cannula Nasal Cannula Room Air O2 Flow Rate 2.0 2.0 2.0 07/16/18 07/16/18 07/16/18 07/16/18 07:40 08:55 08:57 08:59 Pulse 69 69 69 B/P (MAP) 177/72 177/72 177/72 O2 Delivery Nasal Cannula O2 Flow Rate 2.0 07/16/18 07/16/18 07/16/18 09:01 11:00 11:17 Temp 97.7 97.7 Pulse 69 67 Resp 20 B/P (MAP) 177/72 173/76 (108) Pulse Ox 96 96 O2 Delivery Nasal Cannula Nasal Cannula O2 Flow Rate 2.0 2.0 Intake and Output 07/15/18 07/15/18 07/16/18 15:00 23:00 07:00 Intake Total 50 ml 300 ml Balance 50 ml 300 ml Nutrition Consultation Dietary Evaluation: Recommendations by RD: Protein supplementation Comments: Continue w/regular diet as ordered to promote continued good PO intake Will add Ensure BID (strawberry) Expected Outcomes/Goals: PO intake to meet >75% est needs Malnutrition Findings: Body Fat Depletion (Non Severe: Mild Depletion Weight Status: Appropriate RUBEN GARCIA MD Jul 16, 2018 12:14
[2018-07-16] MEDS: ALPRAZolam 0.25 MG TABLET PO PRN ×2 (12:32→21:16)
--- NOTE | 2018-07-16 13:45 | NUR ---
SS following up with discharge planning. Palliative Care consulted on case. Pt continues to decline home healthcare services. SS will await palliative care consult and will continue to follow for discharge planning.
[2018-07-16] MEDS: ANTI-COAG MONITOR BY PHARMACY. MC PRN (16:03)
--- NOTE | 2018-07-16 16:41 | PDOC ---
PROGRESS NOTES Assessment Assessment Chronic dementia, most likely a frontotemporal type given the language difficulties. Elevated TSH Carotid artery high grade stenosis, bilaterally. Right eye vision loss x 3 months. Pulmonary hypertension and pulmonic valve regurgitation. COPD. Pulmonary nodules. Former smoker x 53 years. No evidence of acute CVA this time. RECOMMENDATIONS/PLAN: On increased Synthroid dose Cardiac and vascular consultations appreciated She is on Eliquis and aspirin already Consulted Vascular Surgery. Placement. Patient stated on 07/14/18 wanted to protect her left eye by surgery since already loss vision in right eye. PAST MEDICAL AND SURGICAL HISTORY: COPD and hernia repair, dementia. ALLERGIES: NKDA. FAMILY HISTORY: Coronary artery disease. SOCIAL HISTORY: She stated she lived at home alone for about 23 years. She smoked 1 pack a day from age 14 to 67. She quit smoking 6 years ago. No drinking or drugs. MEDICATIONS: See MAR. MEDICATIONS: Refer to MAR REVIEW OF SYSTEMS: Constitutional: No malnutrition, weight loss, cachexia. Head: No traumatic brain or head injury. Skin: No edema, or rash. Ear: No infection. Eyes: Right eye vision loss. Nose: No bleeding or purulent discharges. Hearing: Hearing loss. Neck: No injury. Breast: No history of cancer, masses, or discharges. Cardiac: HTN. CAD. Pulmonary: COPD. GI: No GI Ulcer, GI bleeding Urinary/genital: UTI. Endocrine: No cousin face, craniofacial dysmorphism, polydactyly. Skeletomuscular: No muscular atrophy, deformity. Neurological: see HP. Psychiatric: Denies drug use/abuse. Otherwise, not [id number] review of systems. PHYSICAL EXAMINATION: General appearance in subacute distress. HEENT: Normocephalic and nontraumatic. Eyes, nose, ears, and throat are unremarkable. Hearing decrease. Neck is supple. No lymphadenopathy. Bruits are heard over the carotid artery. No Crepitus. Cardiovascular: S1, S2, regular rate and rhythm. Pulmonary: Clear to auscultation bilaterally. Abdomen: Bowel sounds are positive. Abdomen is soft, nontender, and nondistended. Extremities: No rash, lesions, or edema. No restriction of range of motion NEUROLOGICAL EXAMINATION: Awake. Oriented partially to time, place but knew person. PERRL. EOMI. CN: no focal findings. Muscle tone: within normal. Muscle strength: 4+ DTR: 2 Plantar reflex: Neutral response bilaterally Gait: able to walk from bed to chair. Sensory exam: no abnormal findings. No cerebellar signs elicited. F-T-N test fine. Objective Objective Vital Signs Date Time Temp Pulse Resp B/P (MAP) Pulse Ox O2 Delivery O2 Flow Rate FiO2 07/16/18 16:20 Nasal Cannula 2.0 07/16/18 15:00 97.7 61 20 105/39 (61) 99 97.7 Intake and Output 07/16/18 07:00 Intake Total 350 ml Balance 350 ml Intake Oral 350 ml # Voids 1 Vitals Signs Vitals VS - Last 72 Hours, by Label Date Time Temp Pulse Resp B/P (MAP) Pulse Ox O2 Delivery O2 Flow Rate FiO2 07/16/18 16:20 Nasal Cannula 2.0 07/16/18 15:00 97.7 61 20 105/39 (61) 99 Nasal Cannula 2.0 97.7 07/16/18 12:45 139/54 (82) 07/16/18 11:17 96 Nasal Cannula 2.0 07/16/18 11:00 97.7 67 20 173/76 (108) 96 Nasal Cannula 2.0 97.7 07/16/18 09:01 69 177/72 07/16/18 08:59 69 177/72 07/16/18 08:57 69 177/72 07/16/18 08:55 69 177/72 07/16/18 07:40 Nasal Cannula 2.0 07/16/18 07:00 97.7 69 20 177/72 (107) 90 Room Air 2.0 97.7 07/16/18 02:33 98.1 66 16 138/57 (84) 98 Nasal Cannula 2.0 98.1 07/15/18 22:22 98.0 76 18 114/46 (68) 98 Nasal Cannula 2.0 98.0 07/15/18 20:07 Room Air 07/15/18 19:52 97 Nasal Cannula 2.0 07/15/18 19:00 98.3 94 18 121/47 (71) 97 98.3 07/15/18 16:05 Nasal Cannula 2.0 07/15/18 15:00 97.7 97 18 116/68 (84) 100 97.7 07/15/18 11:40 Nasal Cannula 2.0 07/15/18 11:00 97.9 69 18 129/76 (93) 99 Nasal Cannula 2.0 97.9 07/15/18 08:55 65 125/55 07/15/18 08:54 65 125/55 07/15/18 08:54 65 125/55 07/15/18 08:54 65 125/55 07/15/18 07:50 99 Nasal Cannula 2.0 07/15/18 07:30 Nasal Cannula 2.0 07/15/18 07:00 98.0 65 18 125/55 (78) 99 Nasal Cannula 2.0 98.0 Laboratory Laboratory Laboratory Tests Test 07/16/18 04:35 White Blood Count 6.0 x10^3/uL (4.0-11.0) Red Blood Count 3.23 x10^6/uL (3.50-5.40) Hemoglobin 10.0 g/dL (12.0-15.5) Hematocrit 30.7 % (36.0-47.0) Mean Corpuscular Volume 95 fL (79-100) Mean Corpuscular Hemoglobin 31 pg (25-35) Mean Corpuscular Hemoglobin Concent 33 g/dL (31-37) Red Cell Distribution Width 14.9 % (11.5-14.5) Platelet Count 249 x10^3/uL (140-400) Neutrophils (%) (Auto) 46 % (31-73) Lymphocytes (%) (Auto) 32 % (24-48) Monocytes (%) (Auto) 11 % (0-9) Eosinophils (%) (Auto) 10 % (0-3) Basophils (%) (Auto) 1 % (0-3) Neutrophils # (Auto) 2.7 x10^3uL (1.8-7.7) Lymphocytes # (Auto) 1.9 x10^3/uL (1.0-4.8) Monocytes # (Auto) 0.7 x10^3/uL (0.0-1.1) Eosinophils # (Auto) 0.6 x10^3/uL (0.0-0.7) Basophils # (Auto) 0.1 x10^3/uL (0.0-0.2) Sodium Level 145 mmol/L (136-145) Potassium Level 4.4 mmol/L (3.5-5.1) Chloride Level 107 mmol/L (98-107) Carbon Dioxide Level 32 mmol/L (21-32) Anion Gap 6 (6-14) Blood Urea Nitrogen 25 mg/dL (7-20) Creatinine 0.9 mg/dL (0.6-1.0) Estimated GFR (Cockcroft-Gault) 61.4 BUN/Creatinine Ratio 28 (6-20) Glucose Level 102 mg/dL (70-99) Calcium Level 8.6 mg/dL (8.5-10.1) Total Bilirubin 0.2 mg/dL (0.2-1.0) Aspartate Amino Transf (AST/SGOT) 24 U/L (15-37) Alanine Aminotransferase (ALT/SGPT) 24 U/L (14-59) Alkaline Phosphatase 64 U/L (46-116) Total Protein 5.8 g/dL (6.4-8.2) Albumin 3.0 g/dL (3.4-5.0) Albumin/Globulin Ratio 1.1 (1.0-1.7) Medication Medications Current Medications Non-Formulary Medication (Alendronate Sodium (Fosamax)) 1 tab WEEKLY PO ; Start 07/17/18 at 09:00; Status UNV Comment Review of Relevant I have reviewed the following items vidal (where applicable) has been applied. JOHN JJ MD Jul 16, 2018 16:41
--- NOTE | 2018-07-16 17:54 | PDOC2 ---
PALLIATIVE CARE Palliative Care Note Palliative Care Consult requested by Dr. Vinson to address goals of care. Reviewed medical condition. Speech Difficulty Confusion CVA? Memory loss- Dementia? 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 Patient alert.Difficulty in word finding and flow of speech. Productive cough. Discussed importance of having someone who knows her wishes about care when when she is seriously ill. She declines to provide a name of complete and AD. She wants to return home when discharged. Discussed Code Status; She would not want to live on machines but declined to sign any document ( DNI/DNR). Asked to keep the paper. Offered to come back in afternoon for more discussion. Per Meenakshi KYLE Patient does not want to talk anymore. PAMELA REBOLLEDO Jul 16, 2018 17:54
[2018-07-16] MEDS ORDERED: PANTOPRAZOLE 40 MG TABLET.DR. PO ONE (19:30)
[2018-07-16] MEDS: ATORVASTATIN CALCIUM 40 MG TABLET. PO SCH (21:16)
[2018-07-16] MEDS: MEMANTINE 10 MG TABLET. PO SCH (21:16)
[2018-07-16] MEDS: ALBUTEROL SULFATE 2.5 MG/3 ML NEBU. INH PRN (22:46)
[2018-07-17] VITALS (18 sets, daily range): BP systolic 107–187; BP diastolic 43–87
[2018-07-17 04:50] LABS: BASO # 0.1 x10^3/uL (0.0-0.2); BASO % 1 % (0-3); EOS # 0.6 x10^3/uL (0.0-0.7); EOS % 10 % (0-3); HEMATOCRIT 34.3 % (36.0-47.0); HEMOGLOBIN 11.1 g/dL (12.0-15.5); LYMPH # 1.6 x10^3/uL (1.0-4.8); LYMPH % 28 % (24-48); MEAN CORPUSCULAR HEMOGLOBIN 31 pg (25-35); MEAN CORPUSCULAR HGB CONC 32 g/dL (31-37); MEAN CORPUSCULAR VOLUME 95 fL (79-100); MONO # 0.5 x10^3/uL (0.0-1.1); MONO % 9 % (0-9); NEUT # 2.8 x10^3uL (1.8-7.7); NEUT % 51 % (31-73); PLATELET COUNT 264 x10^3/uL (140-400); RED BLOOD COUNT 3.63 x10^6/uL (3.50-5.40); RED CELL DISTRIBUTION WIDTH 14.7 % (11.5-14.5); WHITE BLOOD COUNT 5.5 x10^3/uL (4.0-11.0)
[2018-07-17 05:08] LABS: ALBUMIN 3.4 g/dL (3.4-5.0); ALBUMIN/GLOBULIN RATIO 1.1 (1.0-1.7); CREATININE 0.8 mg/dL (0.6-1.0); GFR 70.3; POTASSIUM 3.9 mmol/L (3.5-5.1); TOTAL BILIRUBIN 0.3 mg/dL (0.2-1.0); TOTAL PROTEIN 6.6 g/dL (6.4-8.2)
[2018-07-17] MEDS: ALPRAZolam 0.25 MG TABLET PO PRN ×2 (05:09→20:37)
[2018-07-17] MEDS: ALBUTEROL SULFATE 2.5 MG/3 ML NEBU. NEB SCH ×4 (07:31→19:54)
[2018-07-17] MEDS: CALCIUM CARBONATE 500 MG TABLET PO SCH ×3 (09:00→18:00)
[2018-07-17] MEDS ORDERED: NON FORMULARY ITEM (Alendronate Sodium (Fosamax) 1 TAB) PO SCH (09:00)
[2018-07-17] MEDS: APIXABAN 5 MG TABLET. PO SCH ×2 (09:00→20:29)
[2018-07-17] MEDS ORDERED: IOHEXOL 240 MG/ML 100 ML VIAL. ONE ×2 (09:43→10:51)
[2018-07-17] MEDS ORDERED: LIDOCAINE WITH 8.4% SOD BICARB 3 ML DISP.SYRIN. ONE (09:44)
--- NOTE | 2018-07-17 10:40 | PDOC ---
PROGRESS NOTES Chief Complaint Chief Complaint Speech Difficulty Confusion CVA? Memory loss- Dementia? 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 07/[address] ANGIOGRAM TODAY, PT WANTS TO GO HOME ALONE, HIGH RISK D/C LIVES ALONE WILL CONSULT PAT 07/[address] ANGIOGRAPHY OF NECK AND BRAIN TODAY PLANNED History of Present Illness History of Present Illness Ms Jimenez is a 73 yo F who was admitted for confusion/difficulty speaking, PMH COPD and former smoker She was seen and examined in her room this morning, NAD less expressive aphasia, completed thoughts , not completely She states that when her anxiety increases, her ability to express her thoughts decreases Discussed her medications, treatments, and her concerns at length Discussed with RN 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 This is nonspecific and could be related to acute or chronic bronchial inflammatory process or chronic aspiration. CTA neck was reviewed with , occlusion vs a string sign -- Dx angiogram / if right CEA needed. UNDERSTANDS RISK OF CVA OR WITH HIGH RISK SURGERY 07/17 complex decision making involved D/W PATIENT 46 MIN PT CARE/ COORDINATION > 50 % PT TIME IN EXAM AND PATIENT CARE COORDINATION Vitals Vitals Vital Signs Date Time Temp Pulse Resp B/P (MAP) Pulse Ox O2 Delivery O2 Flow Rate FiO2 07/17/18 08:00 Room Air 07/17/18 07:32 97 2.0 07/17/18 07:00 97.4 60 18 122/43 (69) 97.4 Physical Exam Physical Exam DELAYED,// INCOMPLETE RESPONSE TO QUESTIONS General: Alert, Oriented X3, Cooperative, No acute distress, mild distress Heart: Regular rate, Normal S1, No murmurs, Other (prominent L sided carotid bruit) Lungs: Clear Abdomen: Normal bowel sounds, Soft, Other (supraumbilical ventral hernia) Extremities: No clubbing, No edema Skin: No rashes, No breakdown, No significant lesion Labs LABS Laboratory Tests Test 07/17/18 03:40 White Blood Count 5.5 x10^3/uL (4.0-11.0) Red Blood Count 3.63 x10^6/uL (3.50-5.40) Hemoglobin 11.1 g/dL (12.0-15.5) Hematocrit 34.3 % (36.0-47.0) Mean Corpuscular Volume 95 fL (79-100) Mean Corpuscular Hemoglobin 31 pg (25-35) Mean Corpuscular Hemoglobin Concent 32 g/dL (31-37) Red Cell Distribution Width 14.7 % (11.5-14.5) Platelet Count 264 x10^3/uL (140-400) Neutrophils (%) (Auto) 51 % (31-73) Lymphocytes (%) (Auto) 28 % (24-48) Monocytes (%) (Auto) 9 % (0-9) Eosinophils (%) (Auto) 10 % (0-3) Basophils (%) (Auto) 1 % (0-3) Neutrophils # (Auto) 2.8 x10^3uL (1.8-7.7) Lymphocytes # (Auto) 1.6 x10^3/uL (1.0-4.8) Monocytes # (Auto) 0.5 x10^3/uL (0.0-1.1) Eosinophils # (Auto) 0.6 x10^3/uL (0.0-0.7) Basophils # (Auto) 0.1 x10^3/uL (0.0-0.2) Sodium Level 144 mmol/L (136-145) Potassium Level 3.9 mmol/L (3.5-5.1) Chloride Level 104 mmol/L (98-107) Carbon Dioxide Level 32 mmol/L (21-32) Anion Gap 8 (6-14) Blood Urea Nitrogen 27 mg/dL (7-20) Creatinine 0.8 mg/dL (0.6-1.0) Estimated GFR (Cockcroft-Gault) 70.3 BUN/Creatinine Ratio 34 (6-20) Glucose Level 108 mg/dL (70-99) Calcium Level 9.0 mg/dL (8.5-10.1) Total Bilirubin 0.3 mg/dL (0.2-1.0) Aspartate Amino Transf (AST/SGOT) 32 U/L (15-37) Alanine Aminotransferase (ALT/SGPT) 33 U/L (14-59) Alkaline Phosphatase 73 U/L (46-116) Total Protein 6.6 g/dL (6.4-8.2) Albumin 3.4 g/dL (3.4-5.0) Albumin/Globulin Ratio 1.1 (1.0-1.7) Comment Review of Relevant I have reviewed the following items vidal (where applicable) has been applied. Labs Laboratory Tests Test 07/16/18 04:35 07/17/18 03:40 White Blood Count 6.0 x10^3/uL (4.0-11.0) 5.5 x10^3/uL (4.0-11.0) Red Blood Count 3.23 x10^6/uL (3.50-5.40) 3.63 x10^6/uL (3.50-5.40) Hemoglobin 10.0 g/dL (12.0-15.5) 11.1 g/dL (12.0-15.5) Hematocrit 30.7 % (36.0-47.0) 34.3 % (36.0-47.0) Mean Corpuscular Volume 95 fL (79-100) 95 fL (79-100) Mean Corpuscular Hemoglobin 31 pg (25-35) 31 pg (25-35) Mean Corpuscular Hemoglobin Concent 33 g/dL (31-37) 32 g/dL (31-37) Red Cell Distribution Width 14.9 % (11.5-14.5) 14.7 % (11.5-14.5) Platelet Count 249 x10^3/uL (140-400) 264 x10^3/uL (140-400) Neutrophils (%) (Auto) 46 % (31-73) 51 % (31-73) Lymphocytes (%) (Auto) 32 % (24-48) 28 % (24-48) Monocytes (%) (Auto) 11 % (0-9) 9 % (0-9) Eosinophils (%) (Auto) 10 % (0-3) 10 % (0-3) Basophils (%) (Auto) 1 % (0-3) 1 % (0-3) Neutrophils # (Auto) 2.7 x10^3uL (1.8-7.7) 2.8 x10^3uL (1.8-7.7) Lymphocytes # (Auto) 1.9 x10^3/uL (1.0-4.8) 1.6 x10^3/uL (1.0-4.8) Monocytes # (Auto) 0.7 x10^3/uL (0.0-1.1) 0.5 x10^3/uL (0.0-1.1) Eosinophils # (Auto) 0.6 x10^3/uL (0.0-0.7) 0.6 x10^3/uL (0.0-0.7) Basophils # (Auto) 0.1 x10^3/uL (0.0-0.2) 0.1 x10^3/uL (0.0-0.2) Sodium Level 145 mmol/L (136-145) 144 mmol/L (136-145) Potassium Level 4.4 mmol/L (3.5-5.1) 3.9 mmol/L (3.5-5.1) Chloride Level 107 mmol/L (98-107) 104 mmol/L (98-107) Carbon Dioxide Level 32 mmol/L (21-32) 32 mmol/L (21-32) Anion Gap 6 (6-14) 8 (6-14) Blood Urea Nitrogen 25 mg/dL (7-20) 27 mg/dL (7-20) Creatinine 0.9 mg/dL (0.6-1.0) 0.8 mg/dL (0.6-1.0) Estimated GFR (Cockcroft-Gault) 61.4 70.3 BUN/Creatinine Ratio 28 (6-20) 34 (6-20) Glucose Level 102 mg/dL (70-99) 108 mg/dL (70-99) Calcium Level 8.6 mg/dL (8.5-10.1) 9.0 mg/dL (8.5-10.1) Total Bilirubin 0.2 mg/dL (0.2-1.0) 0.3 mg/dL (0.2-1.0) Aspartate Amino Transf (AST/SGOT) 24 U/L (15-37) 32 U/L (15-37) Alanine Aminotransferase (ALT/SGPT) 24 U/L (14-59) 33 U/L (14-59) Alkaline Phosphatase 64 U/L (46-116) 73 U/L (46-116) Total Protein 5.8 g/dL (6.4-8.2) 6.6 g/dL (6.4-8.2) Albumin 3.0 g/dL (3.4-5.0) 3.4 g/dL (3.4-5.0) Albumin/Globulin Ratio 1.1 (1.0-1.7) 1.1 (1.0-1.7) Laboratory Tests Test 07/17/18 03:40 White Blood Count 5.5 x10^3/uL (4.0-11.0) Red Blood Count 3.63 x10^6/uL (3.50-5.40) Hemoglobin 11.1 g/dL (12.0-15.5) Hematocrit 34.3 % (36.0-47.0) Mean Corpuscular Volume 95 fL (79-100) Mean Corpuscular Hemoglobin 31 pg (25-35) Mean Corpuscular Hemoglobin Concent 32 g/dL (31-37) Red Cell Distribution Width 14.7 % (11.5-14.5) Platelet Count 264 x10^3/uL (140-400) Neutrophils (%) (Auto) 51 % (31-73) Lymphocytes (%) (Auto) 28 % (24-48) Monocytes (%) (Auto) 9 % (0-9) Eosinophils (%) (Auto) 10 % (0-3) Basophils (%) (Auto) 1 % (0-3) Neutrophils # (Auto) 2.8 x10^3uL (1.8-7.7) Lymphocytes # (Auto) 1.6 x10^3/uL (1.0-4.8) Monocytes # (Auto) 0.5 x10^3/uL (0.0-1.1) Eosinophils # (Auto) 0.6 x10^3/uL (0.0-0.7) Basophils # (Auto) 0.1 x10^3/uL (0.0-0.2) Sodium Level 144 mmol/L (136-145) Potassium Level 3.9 mmol/L (3.5-5.1) Chloride Level 104 mmol/L (98-107) Carbon Dioxide Level 32 mmol/L (21-32) Anion Gap 8 (6-14) Blood Urea Nitrogen 27 mg/dL (7-20) Creatinine 0.8 mg/dL (0.6-1.0) Estimated GFR (Cockcroft-Gault) 70.3 BUN/Creatinine Ratio 34 (6-20) Glucose Level 108 mg/dL (70-99) Calcium Level 9.0 mg/dL (8.5-10.1) Total Bilirubin 0.3 mg/dL (0.2-1.0) Aspartate Amino Transf (AST/SGOT) 32 U/L (15-37) Alanine Aminotransferase (ALT/SGPT) 33 U/L (14-59) Alkaline Phosphatase 73 U/L (46-116) Total Protein 6.6 g/dL (6.4-8.2) Albumin 3.4 g/dL (3.4-5.0) Albumin/Globulin Ratio 1.1 (1.0-1.7) Medications Current Medications Aspirin (Children'S Aspirin) 324 mg 1X ONCE PO Last administered on 07/10/18 16:36; Start 07/10/18 at 15:45; Stop 07/10/18 at 16:30; Status DC Albuterol Sulfate (Ventolin Neb Soln) 2.5 mg PRN Q6HRS PRN INH SHORTNESS OF BREATH Last administered on 07/16/18 22:46; Start 07/10/18 at 19:00 Alprazolam (Xanax) 0.75 mg PRN DAILY PRN PO ANXIETY / AGITATION Last administered on 07/13/18 21:44; Start 07/10/18 at 19:00; Stop 07/15/18 at 16:17 ; Status DC Apixaban (Eliquis) 5 mg BID PO Last administered on 07/15/18 12:46; Start 07/10 at 21:00 Aspirin (Children'S Aspirin) 81 mg DAILY PO Last administered on 07/16/18 08: 56; Start 07/11/18 at 09:00 Atorvastatin Calcium (Lipitor) 40 mg QHS PO Last administered on 07/16/18 21: 16; Start 07/10/18 at 21:00 Furosemide (Lasix) 10 mg DAILY PO Last administered on 07/16/18 08:56; Start 07/11/18 at 09:00 Isosorbide Mononitrate (Imdur) 30 mg DAILY PO Last administered on 07/16/18 08 :55; Start 07/11/18 at 09:00 Levothyroxine Sodium (Synthroid) 75 mcg DAILY07 PO Last administered on 06:15; Start 07/11/18 at 07:00; Stop 07/12/18 at 17:17; Status DC Lisinopril (Prinivil) 10 mg DAILY PO Last administered on 07/16/18 08:59; Start 07/11/18 at 09:00 Metoprolol Succinate (Toprol Xl) 25 mg DAILY PO Last administered on 07/16/18 09:01; Start 07/11/18 at 09:00 Nitroglycerin (Nitrostat) 0.4 mg PRN Q5MIN PRN SL CHEST PAIN; Start 07/10/18 at 19:00 Triamcinolone Acetonide (Kenalog) 1 mayank PRN BID PRN TP RASH; Start 07/10/18 at 19:00 Non-Formulary Medication (Alendronate Sodium (Fosamax)) 1 tab WEEKLY PO ; Start 07/17/18 at 09:00; Status UNV Calcium Carbonate/ Glycine (Oscal) 1,000 mg TIDAFTMEAL PO Last administered on 07/16/18 17:52; Start 07/11/18 at 09:00 Vitamin D (Vitamin D3) 2,000 unit DAILY PO Last administered on 07/16/18 08:54 ; Start 07/11/18 at 09:00 Diltiazem HCl (Cardizem 24hr Cd) 120 mg DAILY PO Last administered on 08:57; Start 07/11/18 at 09:00 Guaifenesin (Robitussin) 400 mg PRN BID PRN PO COUGH; Start 07/10/18 at 19:15 Memantine (Namenda) 10 mg DAILY PO ; Start 07/11/18 at 09:00; Stop 07/11/18 at 12: 59; Status DC Multivitamins (Thera M Plus) 1 tab DAILY PO Last administered on 07/16/18 08: 56; Start 07/11/18 at 09:00 Fish Oil (Fish Oil) 1,000 mg DAILY PO Last administered on 07/16/18 08:58; Start 07/11/18 at 09:00 Pantoprazole Sodium (Protonix) 40 mg DAILYAC PO Last administered on 07/16/18 08:06; Start 07/11/18 at 07:30 Non-Formulary Medication (Potassium Chloride ) 99 mg DAILY PO ; Start 07/11/18 at 09:00; Status UNV Pyridoxine HCl (Vitamin B-6) 200 mg DAILY PO Last administered on 07/16/18 08: 58; Start 07/11/18 at 09:00 Non-Formulary Medication (Ubidecarenone (Coenzyme Q10)) 10 mg DAILY PO ; Start 07/11/18 at 09:00; Status UNV Non-Formulary Medication 1 ea DAILY INH Last administered on 07/16/18at 08:54; Start 07/11/18 at 09:00 Info (Anti-Coagulation Monitoring By Pharmacy) 1 each PRN DAILY PRN MC SEE COMMENTS Last administered on 07/16/18at 16:03; Start 07/11/18 at 07:45 Acetaminophen (Tylenol) 650 mg PRN Q6HRS PRN PO TEMP > 100.4F; Start 07/11/18 at 08:45 Acetaminophen (Tylenol Supp) 650 mg PRN Q4HRS PRN SC TEMP > 100.4F; Start at 08:45 Memantine (Namenda) 10 mg QHS PO Last administered on 07/16/18at 21:16; Start at 21:00 Magnesium Hydroxide (Milk Of Magnesia) 2,400 mg PRN DAILY PRN PO CONSTIPATION Last administered on 07/16/18at 08:59; Start 07/12/18 at 14:15 Albuterol Sulfate (Ventolin Neb Soln) 2.5 mg RTQID NEB Last administered on at 07:31; Start 07/12/18 at 20:00 Levothyroxine Sodium (Synthroid) 100 mcg DAILY07 PO Last administered on 06:38; Start 07/13/18 at 07:00 Iohexol (Omnipaque 350 Mg/ml) 75 ml 1X ONCE IV Last administered on 07/13/18at 07:39; Start 07/13/18 at 07:15; Stop 07/13/18 at 07:16; Status DC Info (CONTRAST GIVEN -- Rx MONITORING) 1 each PRN DAILY PRN MC SEE COMMENTS; Start 07/13/18 at 07:15; Stop 07/15/18 at 07:14; Status DC Magnesium Hydroxide (Milk Of Magnesia) 2,400 mg 1X ONCE PO Last administered on 07/13/18at 12:36; Start 07/13/18 at 11:00; Stop 07/13/18 at 11:01; Status DC Alprazolam (Xanax) 0.25 mg PRN Q8HRS PRN PO ANXIETY / AGITATION Last administered on 07/17/18at 05:09; Start 07/14/18 at 17:15 Lidocaine/Sodium Bicarbonate (Buffered Lidocaine 1%) 3 ml STK-MED ONCE .ROUTE ; Start 07/15/18 at 13:13; Stop 07/15/18 at 13:14; Status DC Iohexol (Omnipaque 300 Mg/ml) 100 ml STK-MED ONCE .ROUTE ; Start 07/15/18 at 13: 13; Stop 07/15/18 at 13:14; Status DC Heparin Sodium/ Sodium Chloride 1,000 ml @ As Directed STK-MED ONCE .ROUTE ; Start 07/15/18 at 13:14; Stop 07/15/18 at 13:15; Status DC Pantoprazole Sodium (Protonix) 40 mg 1X ONCE PO Last administered on at 19:51; Start 07/16/18 at 19:30; Stop 07/16/18 at 19:31; Status DC Iohexol (Omnipaque 240 Mg/ml) 100 ml STK-MED ONCE .ROUTE ; Start 07/17/18 at 09: 43; Stop 07/17/18 at 09:44; Status DC Lidocaine/Sodium Bicarbonate (Buffered Lidocaine 1%) 3 ml STK-MED ONCE .ROUTE ; Start 07/17/18 at 09:44; Stop 07/17/18 at 09:45; Status DC Heparin Sodium/ Sodium Chloride 500 ml @ As Directed STK-MED ONCE .ROUTE ; Start 07/17/18 at 09:44; Stop 07/17/18 at 09:45; Status DC Active Scripts Active Reported Alprazolam 0.5 Mg Tablet 0.5 Mg PO PRN DAILY PRN Anoro Ellipta 62.5-25 Mcg Inh (Umeclidinium Brm/Vilanterol Tr) 1 Each Disk.w.dev 1 Each IH DAILY Triamcinolone Acetonide 0.1% Oint (Triamcinolone Acetonide) 15 Gm Oint...g. 1 Mayank TP PRN BID MIX WITH EUCERIN DIRECTED BY PHYSICIAN Synthroid (Levothyroxine Sodium) 75 Mcg Tablet 1 Tab PO DAILY B-6 (Pyridoxine HCl (Vitamin B6)) 200 Mg Tablet.er 200 Mg PO DAILY Proair Hfa Inhaler (Albuterol Sulfate) 8.5 Gm Hfa.aer.ad 2 Puff INH PRN Q6HRS PRN Potassium Chloride 20 Meq Tablet.er 99 Mg PO DAILY Protonix (Pantoprazole Sodium) 20 Mg Tablet.dr 40 Mg PO DAILY Fish Oil 1,000 mg Softgel ([place]-3/Dha/Epa/Fish Oil) 1,000 Mg Capsule 1,000 Mg PO DAILY NITROGLYCERIN SubLingual (Nitroglycerin) 0.4 Mg Tab.subl 0.4 Mg SL PRN Q5MIN PRN Multivitamins (Multivitamin) 1 Each Tablet 1 Tab PO DAILY Metoprolol Succinate ( Xl ) (Metoprolol Succinate) 25 Mg Tab.er.24h 25 Mg PO DAILY Namenda (Memantine Hcl) 10 Mg Tablet 10 Mg PO DAILY Lisinopril 10 Mg Tablet 10 Mg PO DAILY Isosorbide Mononitrate Er (Isosorbide Mononitrate) 30 Mg Tab.er.24h 30 Mg PO DAILY Guaifenesin 400 Mg Tablet 400 Mg PO PRN BID Lasix (Furosemide) 20 Mg Tablet 10 Mg PO DAILY Eliquis (Apixaban) 5 Mg Tablet 5 Mg PO BID Cardizem Cd (Diltiazem Hcl) 180 Mg Cap.er.24h 120 Mg PO DAILY Coenzyme Q10 (Ubidecarenone) 10 Mg Capsule 10 Mg PO DAILY Vitamin D (Cholecalciferol (Vitamin D3)) 2,000 Unit Capsule 1 Cap PO DAILY Calcium Carbonate 600 Mg Tablet 1,200 Mg PO TID Lipitor (Atorvastatin Calcium) 40 Mg Tablet 1 Tab PO QHS Aspirin 81 Mg Tab.chew 1 Tab PO DAILY Xanax (Alprazolam) 0.5 Mg Tablet 0.75 Mg PO PRN DAILY PRN Fosamax (Alendronate Sodium) 70 Mg Tablet 1 Tab PO WEEKLY Proair Hfa Inhaler (Albuterol Sulfate) 8.5 Gm Hfa.aer.ad 1 Puff INH PRN Q6HRS PRN Vitals/I & O Vital Sign - Last 24 Hours 3/1307/16/18 07/16/18 07/16/18 11:00 11:17 12:45 15:00 Temp 97.7 97.7 97.7 97.7 Pulse 67 61 Resp 20 20 B/P (MAP) 173/76 (108) 139/54 (82) 105/39 (61) Pulse Ox 96 96 99 O2 Delivery Nasal Cannula Nasal Cannula Nasal Cannula O2 Flow Rate 2.0 2.0 2.0 07/16/18 07/16/18 07/16/18 07/16/18 16:20 19:15 19:41 20:04 Temp 98.2 98.2 Pulse 68 Resp 16 B/P (MAP) 142/53 (82) Pulse Ox 99 O2 Delivery Nasal Cannula Nasal Cannula Nasal Cannula Nasal Cannula O2 Flow Rate 2.0 2.0 2.0 2.0 07/16/18 07/16/18 07/17/18 07/17/18 22:47 23:27 03:00 04:33 Temp 98.2 97.9 98.2 97.9 Pulse 64 56 Resp 16 20 B/P (MAP) 119/41 (67) 143/58 (86) Pulse Ox 98 99 97 O2 Delivery Nasal Cannula Nasal Cannula Nasal Cannula Nasal Cannula O2 Flow Rate 2.0 2.0 2.0 07/17/18 07/17/18 07/17/18 07/17/18 04:55 07:00 07:32 08:00 Temp 97.4 97.4 Pulse 60 Resp 18 B/P (MAP) 122/43 (69) Pulse Ox 96 97 O2 Delivery Nasal Cannula Room Air Nasal Cannula Room Air O2 Flow Rate 2.0 2.0 Intake and Output 07/16/18 07/16/18 07/17/18 14:59 22:59 06:59 Intake Total 200 ml 400 ml 400 ml Balance 200 ml 400 ml 400 ml Nutrition Consultation Dietary Evaluation: Recommendations by RD: Protein supplementation Comments: REC resume regular diet when able REC Ensure BID (strawberry) breakfast and dinner Expected Outcomes/Goals: PO intake to meet >75% est needs- goal ongoing Malnutrition Findings: Body Fat Depletion (Non Severe: Mild Depletion Weight Status: Appropriate RUBEN GARCIA MD Jul 17, 2018 10:39
[2018-07-17] MEDS ORDERED: fentaNYL PF VIAL 100 MCG/2 ML VIAL ONE (10:47)
[2018-07-17] MEDS ORDERED: MIDAZOLAM HCL/PF 2 MG/2 ML VIAL. ONE (10:47)
[2018-07-17] MEDS ORDERED: LIDOCAINE WITH 8.4% SOD BICARB 3 ML DISP.SYRIN. IJ ONE (11:45)
[2018-07-17] MEDS ORDERED: MIDAZOLAM HCL/PF 2 MG/2 ML VIAL. IV ONE (11:45)
[2018-07-17] MEDS ORDERED: IOHEXOL 240 MG/ML 100 ML VIAL. INT ART ONE (11:45)
[2018-07-17] MEDS ORDERED: fentaNYL PF VIAL 100 MCG/2 ML VIAL IV ONE (11:45)
[2018-07-17] MEDS: ANORO ELLIPTA INHALATION INH SCH (12:37)
[2018-07-17] MEDS: ASPIRIN CHEWABLE 81 MG TABLET. PO SCH (12:38)
[2018-07-17] MEDS: LEVOTHYROXINE 100 MCG TABLET PO SCH (12:38)
[2018-07-17] MEDS: MULTIVITAMIN with MINERAL TABLET. PO SCH (12:38)
[2018-07-17] MEDS: OMEGA-3 FATTY ACIDS/FISH OIL 1,000 MG CAPSULE. PO SCH (12:38)
[2018-07-17] MEDS: PYRIDOXINE 50 MG TABLET. PO SCH (12:38)
[2018-07-17] MEDS: CHOLECALCIFEROL (VITAMIN D3) 1,000 UNIT TABLET PO SCH (12:38)
[2018-07-17] MEDS: PANTOPRAZOLE 40 MG TABLET.DR. PO SCH (12:38)
[2018-07-17] MEDS: ISOSORBIDE MONONITRATE ER 30 MG TAB.ER.24H PO SCH (12:39)
[2018-07-17] MEDS: LISINOPRIL 10 MG TABLET PO SCH (12:39)
[2018-07-17] MEDS: METOPROLOL SUCC 24HR ER 25 MG TAB.ER.24H. PO SCH (12:40)
[2018-07-17] MEDS: FUROSEMIDE 20 MG TABLET PO SCH (12:40)
--- NOTE | 2018-07-17 12:42 | PDOC ---
MODERATE SEDATION ASSESSMENT RISKS/ALTERNATIVES Risks/Alternatives Risks and alternatives of this type of sedation and procedure discussed with: RISK/ALTERNATIVES: Patient H & P ON CHART H & P H & P on chart and reviewed for co-morbid conditions and appropriate labs. H&P ON CHART: Yes STATUS PREG STATUS ASSESSED: Yes MEDS/ALLERGIES REVIEWED Meds/Allergies Reviewed Medications and Allergies including time and route of recently administered narcotics and sedatives. MEDS/ALLERGIES REVIEWED: Yes ASA RATING ASA RATING: III AIRWAY ASSESSMENT Airway Assessment Airway patency, oral function limitations, presence of caps, crowns, dentures, partials, and ability to extend neck assessed. AIRWAY ASSESSMENT: Yes MALLAMPATI SCORE MALLAMPATI SCORE: II PRE-SEDATION ASSESSMENT PRE-SEDATION ASSESSMENT: Yes ED GILBERT MD Jul 17, 2018 12:42
--- NOTE | 2018-07-17 12:45 | PDOC ---
BRIEF OPERATIVE NOTE Pre-Op Diagnosis CVA, TIA Post-Op Diagnosis same Procedure Performed Cervicocephalic arteriogram Surgeon Kathleen Anesthesia Type: Conscious Sedation Findings Bovine arch. 99% stenosis of right internal carotid artery, with severe calcified stenosis of the distal right CCA and focal 40% stenosis of the proximal right CCA. 50% stenosis left ICA with 60% stenosis of the left distal CCA. Patent verts. Patent ACOM and right PCOM with retrograde perfusion to the right anterior circulation. Complications No immediate ED GILBERT MD Jul 17, 2018 12:45
--- NOTE | 2018-07-17 15:15 | RAD ---
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 Sedation: Conscious sedation was administered with a total intraprocedural [id number] time of 58 minutes. The patient was monitored by a qualified independent observer throughout the time of sedation. Please refer to the medical record for exact doses of medications utilized to achieve moderate sedation. Antibiotics: None Exposure: Kerma-Area Product: 412 mGy Sterility: All elements of maximal sterile barrier technique including the use of a cap, mask, sterile gown, sterile gloves, large sterile sheet, appropriate hand hygiene, and 2% chlorhexidine for cutaneous antisepsis (or acceptable alternative antiseptic per current guidelines) were followed for this procedure. If ultrasound guidance was utilized, sterile ultrasound techniques were followed including use of a sterile probe cover. Consent: The procedure was explained in its entirety to the patient or the patients designated clearance representative by a member of the treatment team, including a discussion of the risks, benefits and commonly accepted alternatives to the procedure, as well as the expected consequences of no therapy whatsoever. Discussion of the risks included, but was not limited to, those that are most frequent and those that are rare but possibly severe or life-threatening, as well as the possibility of unforeseen complications. Technique and Findings: Following informed consent, the patient was prepped and draped in usual sterile fashion. Ultrasound interrogation of the right groin revealed patency of the right common femoral artery. A hardcopy ultrasound image was recorded as a 21-gauge micropuncture needle was used to gain access to this vessel. The needle was exchanged over a wire for 5 [place]og[place]ese sheath. Aortic arch: A flush catheter was then advanced into the ascending aorta and contrast aortography was performed. There is a bovine arch. There is en face calcified atherosclerosis at the origin of both the left common carotid and subclavian arteries. Moderate multifocal atherosclerosis of the innominate artery is seen. Right subclavian artery and right vertebral artery are widely patent at their origins. Right common carotid artery demonstrates no significant flow. Right vertebral artery: The flush catheter was then exchanged for an angled catheter which was used to select the right vertebral artery, and contrast angiography of both the cervical and intracranial distribution of this vessel was performed. This vessel is widely patent throughout, with minimal atherosclerosis. There is in-line flow to a patent basilar artery, which provides flow to paired superior cerebellar and posterior cerebral arteries which are widely patent as well. Bilateral anterior inferior cerebellar arteries as well as a right posterior inferior cerebellar artery are all patent. The right posterior communicating artery is patent, with reversed flow resulting in perfusion to the right middle cerebral artery. There is also a large collateral branch arising from the cervical portion of the vertebral artery, providing perfusion to the external carotid arterial distribution. Right common carotid artery: The catheter was then used to select the right common carotid artery and selective angiography of both the cervical and intracranial distributions was performed. There is a subtotal occlusion of the internal carotid artery with a string sign a vestigial flow identified. Distal to this short segment subtotal occlusion the remainder of the high cervical and intracranial internal carotid artery is very diminutive, likely due to lack of perfusion. No flow to the external carotid artery is identified consistent with complete occlusion. There is minimal flow to the intracranial circulation on the right, likely due to impediment from retrograde flow through the posterior communicating and anterior communicating arteries. Within the proximal portion of the common carotid artery, there is mild multifocal calcified atherosclerosis. Left vertebral artery: The angled catheter was then advanced into the proximal portion of the left vertebral artery. Angiography of the cervical and intracranial distribution is performed. This artery is dominant and widely patent throughout its distribution. There is an en face calcified atherosclerotic plaque seen within the high intracranial segment, approximately 1 cm proximal to its confluence with the basilar artery. The left posterior inferior cerebellar artery is noted to be patent. Left common carotid artery: The angled catheter was then exchanged for a reverse curve catheter which was used to engage the ostium of the left common carotid artery at the bovine arch. Angiography of the cervical and intracranial distribution of this vessel was performed in multiple obliquities to best characterize the internal carotid artery stenosis. The common carotid artery is notable for bulky eccentric calcified atherosclerotic plaque resulting in 60% stenosis of the high left common carotid artery. At the proximal aspect of the left common carotid artery, there is a 40% focal soft atherosclerotic stenosis. There is irregular stenosis of the proximal left internal carotid artery as well, with measurements indicative of 50% stenosis. Intracranially, the anterior cerebral artery is seen to be widely patent, and there is brisk contralateral flow to the right hemisphere via the middle cerebral artery. No left posterior communicating artery is identified. No abnormalities of intracranial circulation are seen. Venous phase images are normal as well. The catheter was then removed and contrast angiography of the right groin was performed to assess for suitability of a closure device. A minx device was then utilized to obtain hemostasis without difficulty. Complications: No immediate Impression: 1. 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 The right anterior cerebral circulation is perfused predominantly by retrograde flow through the right posterior communicating and anterior communicating arteries. 2. Complete occlusion of right external carotid artery, with collateral flow via a branch of the vertebral artery. 3. Irregular short segment stenosis of the left internal carotid artery calculated at 50%. This is accompanied by a 60% stenosis of the high left common carotid artery. 4. Widely patent bilateral vertebral arteries, with normal-appearing posterior cerebral circulation. The left vertebral artery is slightly dominant, though the right vertebral artery is robust. No left posterior communicating artery is identified. Stenosis calculations for CT, MR and conventional angiography are based upon measurements of the distal ICA diameter in accordance with NASCET methodology. Stenosis calculations for carotid ultrasound studies are derived from validated velocity criteria which are known to correlate with the NASCET methodology.
--- NOTE | 2018-07-17 15:51 | PDOC ---
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 Patient reports no new symptoms. Dr. Maradiaga present for examination. 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 Cerebral angiogram results: Bovine arch. 99% stenosis of right internal carotid artery, with severe calcified stenosis of the distal right CCA and focal 40% stenosis of the proximal right CCA. 50% stenosis left ICA with 60% stenosis of the left distal CCA. Patent verts. Patent ACOM and right PCOM with retrograde perfusion to the right anterior circulation. Recommend Right CEA, discussed planned operative procedure, risks, complications , and alternative therapies with patient at length, she agrees to proceed. Tentatively planned for tomorrow 07/18/2018. NPO after MN. Consent for procedure. Continue to hold Eliquis until after procedure. Comment Review of Relevant I have reviewed the following items vidal (where applicable) has been applied. Labs Laboratory Tests Test 07/16/18 04:35 07/17/18 03:40 White Blood Count 6.0 x10^3/uL (4.0-11.0) 5.5 x10^3/uL (4.0-11.0) Red Blood Count 3.23 x10^6/uL (3.50-5.40) 3.63 x10^6/uL (3.50-5.40) Hemoglobin 10.0 g/dL (12.0-15.5) 11.1 g/dL (12.0-15.5) Hematocrit 30.7 % (36.0-47.0) 34.3 % (36.0-47.0) Mean Corpuscular Volume 95 fL (79-100) 95 fL (79-100) Mean Corpuscular Hemoglobin 31 pg (25-35) 31 pg (25-35) Mean Corpuscular Hemoglobin Concent 33 g/dL (31-37) 32 g/dL (31-37) Red Cell Distribution Width 14.9 % (11.5-14.5) 14.7 % (11.5-14.5) Platelet Count 249 x10^3/uL (140-400) 264 x10^3/uL (140-400) Neutrophils (%) (Auto) 46 % (31-73) 51 % (31-73) Lymphocytes (%) (Auto) 32 % (24-48) 28 % (24-48) Monocytes (%) (Auto) 11 % (0-9) 9 % (0-9) Eosinophils (%) (Auto) 10 % (0-3) 10 % (0-3) Basophils (%) (Auto) 1 % (0-3) 1 % (0-3) Neutrophils # (Auto) 2.7 x10^3uL (1.8-7.7) 2.8 x10^3uL (1.8-7.7) Lymphocytes # (Auto) 1.9 x10^3/uL (1.0-4.8) 1.6 x10^3/uL (1.0-4.8) Monocytes # (Auto) 0.7 x10^3/uL (0.0-1.1) 0.5 x10^3/uL (0.0-1.1) Eosinophils # (Auto) 0.6 x10^3/uL (0.0-0.7) 0.6 x10^3/uL (0.0-0.7) Basophils # (Auto) 0.1 x10^3/uL (0.0-0.2) 0.1 x10^3/uL (0.0-0.2) Sodium Level 145 mmol/L (136-145) 144 mmol/L (136-145) Potassium Level 4.4 mmol/L (3.5-5.1) 3.9 mmol/L (3.5-5.1) Chloride Level 107 mmol/L (98-107) 104 mmol/L (98-107) Carbon Dioxide Level 32 mmol/L (21-32) 32 mmol/L (21-32) Anion Gap 6 (6-14) 8 (6-14) Blood Urea Nitrogen 25 mg/dL (7-20) 27 mg/dL (7-20) Creatinine 0.9 mg/dL (0.6-1.0) 0.8 mg/dL (0.6-1.0) Estimated GFR (Cockcroft-Gault) 61.4 70.3 BUN/Creatinine Ratio 28 (6-20) 34 (6-20) Glucose Level 102 mg/dL (70-99) 108 mg/dL (70-99) Calcium Level 8.6 mg/dL (8.5-10.1) 9.0 mg/dL (8.5-10.1) Total Bilirubin 0.2 mg/dL (0.2-1.0) 0.3 mg/dL (0.2-1.0) Aspartate Amino Transf (AST/SGOT) 24 U/L (15-37) 32 U/L (15-37) Alanine Aminotransferase (ALT/SGPT) 24 U/L (14-59) 33 U/L (14-59) Alkaline Phosphatase 64 U/L (46-116) 73 U/L (46-116) Total Protein 5.8 g/dL (6.4-8.2) 6.6 g/dL (6.4-8.2) Albumin 3.0 g/dL (3.4-5.0) 3.4 g/dL (3.4-5.0) Albumin/Globulin Ratio 1.1 (1.0-1.7) 1.1 (1.0-1.7) Laboratory Tests Test 07/17/18 03:40 White Blood Count 5.5 x10^3/uL (4.0-11.0) Red Blood Count 3.63 x10^6/uL (3.50-5.40) Hemoglobin 11.1 g/dL (12.0-15.5) Hematocrit 34.3 % (36.0-47.0) Mean Corpuscular Volume 95 fL (79-100) Mean Corpuscular Hemoglobin 31 pg (25-35) Mean Corpuscular Hemoglobin Concent 32 g/dL (31-37) Red Cell Distribution Width 14.7 % (11.5-14.5) Platelet Count 264 x10^3/uL (140-400) Neutrophils (%) (Auto) 51 % (31-73) Lymphocytes (%) (Auto) 28 % (24-48) Monocytes (%) (Auto) 9 % (0-9) Eosinophils (%) (Auto) 10 % (0-3) Basophils (%) (Auto) 1 % (0-3) Neutrophils # (Auto) 2.8 x10^3uL (1.8-7.7) Lymphocytes # (Auto) 1.6 x10^3/uL (1.0-4.8) Monocytes # (Auto) 0.5 x10^3/uL (0.0-1.1) Eosinophils # (Auto) 0.6 x10^3/uL (0.0-0.7) Basophils # (Auto) 0.1 x10^3/uL (0.0-0.2) Sodium Level 144 mmol/L (136-145) Potassium Level 3.9 mmol/L (3.5-5.1) Chloride Level 104 mmol/L (98-107) Carbon Dioxide Level 32 mmol/L (21-32) Anion Gap 8 (6-14) Blood Urea Nitrogen 27 mg/dL (7-20) Creatinine 0.8 mg/dL (0.6-1.0) Estimated GFR (Cockcroft-Gault) 70.3 BUN/Creatinine Ratio 34 (6-20) Glucose Level 108 mg/dL (70-99) Calcium Level 9.0 mg/dL (8.5-10.1) Total Bilirubin 0.3 mg/dL (0.2-1.0) Aspartate Amino Transf (AST/SGOT) 32 U/L (15-37) Alanine Aminotransferase (ALT/SGPT) 33 U/L (14-59) Alkaline Phosphatase 73 U/L (46-116) Total Protein 6.6 g/dL (6.4-8.2) Albumin 3.4 g/dL (3.4-5.0) Albumin/Globulin Ratio 1.1 (1.0-1.7) Medications Current Medications Aspirin (Children'S Aspirin) 324 mg 1X ONCE PO Last administered on 07/10/18at 16:36; Start 07/10/18 at 15:45; Stop 07/10/18 at 16:30; Status DC Albuterol Sulfate (Ventolin Neb Soln) 2.5 mg PRN Q6HRS PRN INH SHORTNESS OF BREATH Last administered on 07/16/18 22:46; Start 07/10/18 at 19:00 Alprazolam (Xanax) 0.75 mg PRN DAILY PRN PO ANXIETY / AGITATION Last administered on 07/13/18 21:44; Start 07/10/18 at 19:00; Stop 07/15/18 at 16:17 ; Status DC Apixaban (Eliquis) 5 mg BID PO Last administered on 07/15/18 12:46; Start 07/10 at 21:00 Aspirin (Children'S Aspirin) 81 mg DAILY PO Last administered on 07/17/18 12: 38; Start 07/11/18 at 09:00 Atorvastatin Calcium (Lipitor) 40 mg QHS PO Last administered on 07/16/18 21: 16; Start 07/10/18 at 21:00 Furosemide (Lasix) 10 mg DAILY PO Last administered on 07/17/18 12:40; Start 07/11/18 at 09:00 Isosorbide Mononitrate (Imdur) 30 mg DAILY PO Last administered on 07/17/18 12 :39; Start 07/11/18 at 09:00 Levothyroxine Sodium (Synthroid) 75 mcg DAILY07 PO Last administered on 06:15; Start 07/11/18 at 07:00; Stop 07/12/18 at 17:17; Status DC Lisinopril (Prinivil) 10 mg DAILY PO Last administered on 07/17/18 12:39; Start 07/11/18 at 09:00 Metoprolol Succinate (Toprol Xl) 25 mg DAILY PO Last administered on 07/17/18 12:40; Start 07/11/18 at 09:00 Nitroglycerin (Nitrostat) 0.4 mg PRN Q5MIN PRN SL CHEST PAIN; Start 07/10/18 at 19:00 Triamcinolone Acetonide (Kenalog) 1 mayank PRN BID PRN TP RASH; Start 07/10/18 at 19:00 Non-Formulary Medication (Alendronate Sodium (Fosamax)) 1 tab WEEKLY PO ; Start 07/17/18 at 09:00; Status UNV Calcium Carbonate/ Glycine (Oscal) 1,000 mg TIDAFTMEAL PO Last administered on 07/17/18 12:39; Start 07/11/18 at 09:00 Vitamin D (Vitamin D3) 2,000 unit DAILY PO Last administered on 07/17/18 12:38 ; Start 07/11/18 at 09:00 Diltiazem HCl (Cardizem 24hr Cd) 120 mg DAILY PO Last administered on 12:40; Start 07/11/18 at 09:00 Guaifenesin (Robitussin) 400 mg PRN BID PRN PO COUGH; Start 07/10/18 at 19:15 Memantine (Namenda) 10 mg DAILY PO ; Start 07/11/18 at 09:00; Stop 07/11/18 at 12: 59; Status DC Multivitamins (Thera M Plus) 1 tab DAILY PO Last administered on 07/17/18 12: 38; Start 07/11/18 at 09:00 Fish Oil (Fish Oil) 1,000 mg DAILY PO Last administered on 07/17/18 12:38; Start 07/11/18 at 09:00 Pantoprazole Sodium (Protonix) 40 mg DAILYAC PO Last administered on 07/17/18 12:38; Start 07/11/18 at 07:30 Non-Formulary Medication (Potassium Chloride ) 99 mg DAILY PO ; Start 07/11/18 at 09:00; Status UNV Pyridoxine HCl (Vitamin B-6) 200 mg DAILY PO Last administered on 07/17/18 12: 38; Start 07/11/18 at 09:00 Non-Formulary Medication (Ubidecarenone (Coenzyme Q10)) 10 mg DAILY PO ; Start 07/11/18 at 09:00; Status UNV Non-Formulary Medication 1 ea DAILY INH Last administered on 07/17/18 12:37; Start 07/11/18 at 09:00 Info (Anti-Coagulation Monitoring By Pharmacy) 1 each PRN DAILY PRN MC SEE COMMENTS Last administered on 07/16/18 16:03; Start 07/11/18 at 07:45 Acetaminophen (Tylenol) 650 mg PRN Q6HRS PRN PO TEMP > 100.4F; Start 07/11/18 at 08:45 Acetaminophen (Tylenol Supp) 650 mg PRN Q4HRS PRN VT TEMP > 100.4F; Start at 08:45 Memantine (Namenda) 10 mg QHS PO Last administered on 07/16/18at 21:16; Start at 21:00 Magnesium Hydroxide (Milk Of Magnesia) 2,400 mg PRN DAILY PRN PO CONSTIPATION Last administered on 07/16/18at 08:59; Start 07/12/18 at 14:15 Albuterol Sulfate (Ventolin Neb Soln) 2.5 mg RTQID NEB Last administered on at 15:34; Start 07/12/18 at 20:00 Levothyroxine Sodium (Synthroid) 100 mcg DAILY07 PO Last administered on at 12:38; Start 07/13/18 at 07:00 Iohexol (Omnipaque 350 Mg/ml) 75 ml 1X ONCE IV Last administered on 07/13/18at 07:39; Start 07/13/18 at 07:15; Stop 07/13/18 at 07:16; Status DC Info (CONTRAST GIVEN -- Rx MONITORING) 1 each PRN DAILY PRN MC SEE COMMENTS; Start 07/13/18 at 07:15; Stop 07/15/18 at 07:14; Status DC Magnesium Hydroxide (Milk Of Magnesia) 2,400 mg 1X ONCE PO Last administered on 07/13/18at 12:36; Start 07/13/18 at 11:00; Stop 07/13/18 at 11:01; Status DC Alprazolam (Xanax) 0.25 mg PRN Q8HRS PRN PO ANXIETY / AGITATION Last administered on 07/17/18at 05:09; Start 07/14/18 at 17:15 Lidocaine/Sodium Bicarbonate (Buffered Lidocaine 1%) 3 ml STK-MED ONCE .ROUTE ; Start 07/15/18 at 13:13; Stop 07/15/18 at 13:14; Status DC Iohexol (Omnipaque 300 Mg/ml) 100 ml STK-MED ONCE .ROUTE ; Start 07/15/18 at 13: 13; Stop 07/15/18 at 13:14; Status DC Heparin Sodium/ Sodium Chloride 1,000 ml @ As Directed STK-MED ONCE .ROUTE ; Start 07/15/18 at 13:14; Stop 07/15/18 at 13:15; Status DC Pantoprazole Sodium (Protonix) 40 mg 1X ONCE PO Last administered on at 19:51; Start 07/16/18 at 19:30; Stop 07/16/18 at 19:31; Status DC Iohexol (Omnipaque 240 Mg/ml) 100 ml STK-MED ONCE .ROUTE ; Start 07/17/18 at 09: 43; Stop 07/17/18 at 09:44; Status DC Lidocaine/Sodium Bicarbonate (Buffered Lidocaine 1%) 3 ml STK-MED ONCE .ROUTE ; Start 07/17/18 at 09:44; Stop 07/17/18 at 09:45; Status DC Heparin Sodium/ Sodium Chloride 500 ml @ As Directed STK-MED ONCE .ROUTE ; Start 07/17/18 at 09:44; Stop 07/17/18 at 09:45; Status DC Midazolam HCl (Versed) 2 mg STK-MED ONCE .ROUTE ; Start 07/17/18 at 10:47; Stop 07/17/18 at 10:48; Status DC Fentanyl Citrate (Fentanyl 2ml Vial) 100 mcg STK-MED ONCE .ROUTE ; Start at 10:47; Stop 07/17/18 at 10:48; Status DC Iohexol (Omnipaque 240 Mg/ml) 100 ml STK-MED ONCE .ROUTE ; Start 07/17/18 at 10: 51; Stop 07/17/18 at 10:52; Status DC Heparin Sodium/ Sodium Chloride (HEPARIN for ARTERIAL LINE FLUSH) 1,000 unit 1X ONCE IART Last administered on 07/17/18at 11:45; Start 07/17/18 at 11:45; Stop 07/17/18 at 11:46; Status DC Lidocaine/Sodium Bicarbonate (Buffered Lidocaine 1%) 3 ml 1X ONCE IJ Last administered on 07/17/18at 11:58; Start 07/17/18 at 11:45; Stop 07/17/18 at 11:46 ; Status DC Midazolam HCl (Versed) 2 mg 1X ONCE IV Last administered on 07/17/18at 11:59; Start 07/17/18 at 11:45; Stop 3/14/19 at 11:46; Status DC Fentanyl Citrate (Fentanyl 2ml Vial) 100 mcg 1X ONCE IV Last administered on at 11:59; Start 07/17/18 at 11:45; Stop 07/17/18 at 11:46; Status DC Iohexol (Omnipaque 240 Mg/ml) 100 ml 1X ONCE INT ART Last administered on 07/17at 11:58; Start 07/17/18 at 11:45; Stop 07/17/18 at 11:46; Status DC Active Scripts Active Reported Alprazolam 0.5 Mg Tablet 0.5 Mg PO PRN DAILY PRN Anoro Ellipta 62.5-25 Mcg Inh (Umeclidinium Brm/Vilanterol Tr) 1 Each Disk.w.dev 1 Each IH DAILY Triamcinolone Acetonide 0.1% Oint (Triamcinolone Acetonide) 15 Gm Oint...g. 1 Mayank TP PRN BID MIX WITH EUCERIN DIRECTED BY PHYSICIAN Synthroid (Levothyroxine Sodium) 75 Mcg Tablet 1 Tab PO DAILY B-6 (Pyridoxine HCl (Vitamin B6)) 200 Mg Tablet.er 200 Mg PO DAILY Proair Hfa Inhaler (Albuterol Sulfate) 8.5 Gm Hfa.aer.ad 2 Puff INH PRN Q6HRS PRN Potassium Chloride 20 Meq Tablet.er 99 Mg PO DAILY Protonix (Pantoprazole Sodium) 20 Mg Tablet.dr 40 Mg PO DAILY Fish Oil 1,000 mg Softgel ([place]-3/Dha/Epa/Fish Oil) 1,000 Mg Capsule 1,000 Mg PO DAILY NITROGLYCERIN SubLingual (Nitroglycerin) 0.4 Mg Tab.subl 0.4 Mg SL PRN Q5MIN PRN Multivitamins (Multivitamin) 1 Each Tablet 1 Tab PO DAILY Metoprolol Succinate ( Xl ) (Metoprolol Succinate) 25 Mg Tab.er.24h 25 Mg PO DAILY Namenda (Memantine Hcl) 10 Mg Tablet 10 Mg PO DAILY Lisinopril 10 Mg Tablet 10 Mg PO DAILY Isosorbide Mononitrate Er (Isosorbide Mononitrate) 30 Mg Tab.er.24h 30 Mg PO DAILY Guaifenesin 400 Mg Tablet 400 Mg PO PRN BID Lasix (Furosemide) 20 Mg Tablet 10 Mg PO DAILY Eliquis (Apixaban) 5 Mg Tablet 5 Mg PO BID Cardizem Cd (Diltiazem Hcl) 180 Mg Cap.er.24h 120 Mg PO DAILY Coenzyme Q10 (Ubidecarenone) 10 Mg Capsule 10 Mg PO DAILY Vitamin D (Cholecalciferol (Vitamin D3)) 2,000 Unit Capsule 1 Cap PO DAILY Calcium Carbonate 600 Mg Tablet 1,200 Mg PO TID Lipitor (Atorvastatin Calcium) 40 Mg Tablet 1 Tab PO QHS Aspirin 81 Mg Tab.chew 1 Tab PO DAILY Xanax (Alprazolam) 0.5 Mg Tablet 0.75 Mg PO PRN DAILY PRN Fosamax (Alendronate Sodium) 70 Mg Tablet 1 Tab PO WEEKLY Proair Hfa Inhaler (Albuterol Sulfate) 8.5 Gm Hfa.aer.ad 1 Puff INH PRN Q6HRS PRN Vitals/I & O Vital Sign - Last 24 Hours 07/16/18 07/16/18 07/16/18 07/16/18 16:20 19:15 19:41 20:04 Temp 98.2 98.2 Pulse 68 Resp 16 B/P (MAP) 142/53 (82) Pulse Ox 99 O2 Delivery Nasal Cannula Nasal Cannula Nasal Cannula Nasal Cannula O2 Flow Rate 2.0 2.0 2.0 2.0 07/16/18 07/16/18 07/17/18 07/17/18 22:47 23:27 03:00 04:33 Temp 98.2 97.9 98.2 97.9 Pulse 64 56 Resp 16 20 B/P (MAP) 119/41 (67) 143/58 (86) Pulse Ox 98 99 97 O2 Delivery Nasal Cannula Nasal Cannula Nasal Cannula Nasal Cannula O2 Flow Rate 2.0 2.0 2.0 07/17/18 07/17/18 07/17/18 07/17/18 04:55 07:00 07:32 08:00 Temp 97.4 97.4 Pulse 60 Resp 18 B/P (MAP) 122/43 (69) Pulse Ox 96 97 O2 Delivery Nasal Cannula Room Air Nasal Cannula Room Air O2 Flow Rate 2.0 2.0 07/17/18 07/17/18 07/17/18 07/17/18 11:59 12:00 12:15 12:39 Pulse 68 68 Resp 16 16 B/P (MAP) 178/87 Pulse Ox 100 100 94 O2 Delivery Nasal Cannula Nasal Cannula Room Air O2 Flow Rate 2.0 2.0 07/17/18 07/17/18 07/17/18 07/17/18 12:39 12:40 12:40 13:09 Pulse 68 68 68 B/P (MAP) 178/87 178/87 178/87 Pulse Ox 94 O2 Delivery Room Air 07/17/18 15:35 Pulse Ox 94 O2 Delivery Room Air Intake and Output 07/16/18 07/16/18 07/17/18 15:00 23:00 07:00 Intake Total 200 ml 400 ml 400 ml Balance 200 ml 400 ml 400 ml EDINSON MARADIAGA II, MD 07/17/18 1559: PROGRESS NOTES Comment Images pt seen and examined. Angios reviewed. Has critical stenosis of the right ICA approx 2 cm distal to bifurcation. Discussed right CEA with patient, risks and benefits. Plan for 07:30, Dr Perkins. ROLANDO OROZCO APRN Jul 17, 2018 15:51 EDINSON MARADIAGA II, MD Jul 17, 2018 15:59
--- NOTE | 2018-07-17 17:21 | NUR ---
Patient able to give information regarding person of her choice to call if anything should happen and she could no longer speak for herself. Pt has given staff the name and number of Jeanne Peoples at or . PT could not recall which number is the correct number. Pt states she is not to be contacted unless it is an emergency. This contact is from [facility]. Pt would not disclose any other information regarding this contact.
[2018-07-17] MEDS: ATORVASTATIN CALCIUM 40 MG TABLET. PO SCH (20:35)
[2018-07-17] MEDS: MEMANTINE 10 MG TABLET. PO SCH (20:35)
[2018-07-18] VITALS (10 sets, daily range): BP systolic 93–158; BP diastolic 35–76
[2018-07-18] MEDS: ALBUTEROL SULFATE 2.5 MG/3 ML NEBU. INH PRN ×2 (02:42→12:34)
[2018-07-18 03:56] LABS: BASO # 0.1 x10^3/uL (0.0-0.2); BASO % 1 % (0-3); EOS # 0.6 x10^3/uL (0.0-0.7); EOS % 11 % (0-3); HEMATOCRIT 28.7 % (36.0-47.0); HEMOGLOBIN 9.3 g/dL (12.0-15.5); LYMPH # 1.6 x10^3/uL (1.0-4.8); LYMPH % 27 % (24-48); MEAN CORPUSCULAR HEMOGLOBIN 31 pg (25-35); MEAN CORPUSCULAR HGB CONC 32 g/dL (31-37); MEAN CORPUSCULAR VOLUME 95 fL (79-100); MONO # 0.5 x10^3/uL (0.0-1.1); MONO % 9 % (0-9); NEUT % 52 % (31-73); PLATELET COUNT 249 x10^3/uL (140-400); RED BLOOD COUNT 3.03 x10^6/uL (3.50-5.40); RED CELL DISTRIBUTION WIDTH 14.6 % (11.5-14.5); WHITE BLOOD COUNT 5.8 x10^3/uL (4.0-11.0)
[2018-07-18 04:30] LABS: ALBUMIN 2.8 g/dL (3.4-5.0); CALCIUM 8.4 mg/dL (8.5-10.1); CREATININE 0.8 mg/dL (0.6-1.0); GFR 70.3; TOTAL BILIRUBIN 0.3 mg/dL (0.2-1.0); TOTAL PROTEIN 5.7 g/dL (6.4-8.2)
[2018-07-18] MEDS ORDERED: VANCOMYCIN 1GM IVPB FOR OMNI 250 ML IV PRN (06:00)
[2018-07-18] MEDS ORDERED: IV RINGERS,LACTATED 1000ML 1,000 ML IV SCH (06:31)
[2018-07-18] MEDS ORDERED: ONDANSETRON PF 4 MG/2 ML VIAL. IV PRN ×2 (06:45→12:30)
[2018-07-18] MEDS ORDERED: PROCHLORPERAZINE 10 MG/2 ML VIAL. IV PRN (06:45)
[2018-07-18] MEDS ORDERED: LIDOCAINE 1% PF 2 ML VIAL. ID PRN (06:45)
[2018-07-18] MEDS ORDERED: fentaNYL PF VIAL 100 MCG/2 ML VIAL IV PRN ×3 (06:45→18:30)
[2018-07-18] MEDS: ALBUTEROL SULFATE 2.5 MG/3 ML NEBU. NEB SCH ×4 (07:16→21:33)
[2018-07-18] MEDS ORDERED: HEPARIN SODIUM 5,000 UNIT in IV NORMAL SALINE 500ML BAG 500 ML IRR ONE (07:25)
[2018-07-18] MEDS ORDERED: BUPIVACAINE-EPI 0.25%-1:200000 MPF 30 ML VIAL. ONE (08:37)
[2018-07-18] MEDS ORDERED: ROPIVacaine 0.5% PF 20 ML VIAL. ONE (08:54)
[2018-07-18] MEDS: ALPRAZolam 0.25 MG TABLET PO PRN (08:59)
[2018-07-18] MEDS: LEVOTHYROXINE 100 MCG TABLET PO SCH (08:59)
[2018-07-18] MEDS: ISOSORBIDE MONONITRATE ER 30 MG TAB.ER.24H PO SCH (08:59)
[2018-07-18] MEDS: PANTOPRAZOLE 40 MG TABLET.DR. PO SCH (08:59)
[2018-07-18] MEDS: LISINOPRIL 10 MG TABLET PO SCH (08:59)
[2018-07-18] MEDS: FUROSEMIDE 20 MG TABLET PO SCH (09:00)
[2018-07-18] MEDS: METOPROLOL SUCC 24HR ER 25 MG TAB.ER.24H. PO SCH (09:00)
[2018-07-18] MEDS: ANORO ELLIPTA INHALATION INH SCH (09:00)
[2018-07-18] MEDS: APIXABAN 5 MG TABLET. PO SCH ×2 (09:00→21:23)
[2018-07-18] MEDS: CHOLECALCIFEROL (VITAMIN D3) 1,000 UNIT TABLET PO SCH (09:00)
[2018-07-18] MEDS: ASPIRIN CHEWABLE 81 MG TABLET. PO SCH (09:00)
[2018-07-18] MEDS: PYRIDOXINE 50 MG TABLET. PO SCH (09:00)
[2018-07-18] MEDS: MULTIVITAMIN with MINERAL TABLET. PO SCH (09:00)
[2018-07-18] MEDS: OMEGA-3 FATTY ACIDS/FISH OIL 1,000 MG CAPSULE. PO SCH (09:00)
[2018-07-18] MEDS: CALCIUM CARBONATE 500 MG TABLET PO SCH ×3 (09:00→18:00)
[2018-07-18] MEDS: ANTI-COAG MONITOR BY PHARMACY. MC PRN (09:12)
[2018-07-18] MEDS ORDERED: MIDAZOLAM HCL/PF 2 MG/2 ML VIAL. ONE (09:17)
[2018-07-18] MEDS ORDERED: PHENYLEPHRINE 10 MG/ML VIAL. ONE (09:17)
[2018-07-18] MEDS ORDERED: IPRATRPIUM/ALBUTEROL 0.5/2.5MG 3 ML NEBU. ONE (09:31)
[2018-07-18] MEDS ORDERED: ONDANSETRON PF 4 MG/2 ML VIAL. ONE (09:44)
[2018-07-18] MEDS ORDERED: DEXAMETHASONE SOD PHOS 20 MG/5 ML VIAL. ONE (09:44)
[2018-07-18] MEDS ORDERED: PROPOFOL 20 ML IV ONE (09:44)
[2018-07-18] MEDS ORDERED: LIDOCAINE 2% PF 5 ML VIAL. ONE ×2 (09:44→12:34)
[2018-07-18] MEDS ORDERED: ROCURONIUM 50 MG/5 ML VIAL. ONE (09:44)
[2018-07-18] MEDS ORDERED: IPRATRPIUM/ALBUTEROL 0.5/2.5MG 3 ML NEBU. NEB ONE (09:45)
[2018-07-18] MEDS ORDERED: NITROGLYCERIN PREMIX 0 ML IV ONE (09:52)
--- NOTE | 2018-07-18 10:18 | PDOC ---
PROGRESS NOTES Chief Complaint Chief Complaint Speech Difficulty Confusion CVA? 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 07/[address] ANGIOGRAM TODAY, PT WANTS TO GO HOME ALONE, HIGH RISK D/C LIVES ALONE WILL CONSULT PAT 07/[address] ANGIOGRAPHY OF NECK AND BRAIN TODAY PLANNED 07/17 SURGERY LATER TODAY, HIGH RIS OF COMPLICATIONS per my chart review History of Present Illness History of Present Illness Ms Jimenez is a 73 yo F who was admitted for confusion/difficulty speaking, PMH COPD and former smoker She was seen and examined in her room this morning, NAD less expressive aphasia, completed thoughts , not completely She states that when her anxiety increases, her ability to express her thoughts decreases Discussed her medications, treatments, and her concerns at length Discussed with RN 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 This is nonspecific and could be related to acute or chronic bronchial inflammatory process or chronic aspiration. CTA neck was reviewed with , occlusion vs a string sign -- Dx angiogram / icritical stenosis of the right ICA approx 2 cm distal to bifurcation. CEA Dr Perkins. 07/18 UNDERSTANDS RISK OF CVA OR WITH HIGH RISK SURGERY 07/17 complex decision making involved Vitals Vitals Vital Signs Date Time Temp Pulse Resp B/P (MAP) Pulse Ox O2 Delivery O2 Flow Rate FiO2 07/18/18 09:29 97.9 60 20 145/60 100 Nasal Cannula 2.0 97.9 Physical Exam Physical Exam DELAYED,// INCOMPLETE RESPONSE TO QUESTIONS General: Alert, Oriented X3, Cooperative, No acute distress, mild distress Heart: Regular rate, Normal S1, No murmurs, Other (prominent L sided carotid bruit) Lungs: Clear Abdomen: Normal bowel sounds, Soft, Other (supraumbilical ventral hernia) Extremities: No clubbing, No cyanosis, No edema Skin: No rashes, No breakdown, No significant lesion Labs LABS Laboratory Tests Test 07/18/18 03:00 White Blood Count 5.8 x10^3/uL (4.0-11.0) Red Blood Count 3.03 x10^6/uL (3.50-5.40) Hemoglobin 9.3 g/dL (12.0-15.5) Hematocrit 28.7 % (36.0-47.0) Mean Corpuscular Volume 95 fL (79-100) Mean Corpuscular Hemoglobin 31 pg (25-35) Mean Corpuscular Hemoglobin Concent 32 g/dL (31-37) Red Cell Distribution Width 14.6 % (11.5-14.5) Platelet Count 249 x10^3/uL (140-400) Neutrophils (%) (Auto) 52 % (31-73) Lymphocytes (%) (Auto) 27 % (24-48) Monocytes (%) (Auto) 9 % (0-9) Eosinophils (%) (Auto) 11 % (0-3) Basophils (%) (Auto) 1 % (0-3) Neutrophils # (Auto) 3.0 x10^3uL (1.8-7.7) Lymphocytes # (Auto) 1.6 x10^3/uL (1.0-4.8) Monocytes # (Auto) 0.5 x10^3/uL (0.0-1.1) Eosinophils # (Auto) 0.6 x10^3/uL (0.0-0.7) Basophils # (Auto) 0.1 x10^3/uL (0.0-0.2) Sodium Level 146 mmol/L (136-145) Potassium Level 4.0 mmol/L (3.5-5.1) Chloride Level 106 mmol/L (98-107) Carbon Dioxide Level 32 mmol/L (21-32) Anion Gap 8 (6-14) Blood Urea Nitrogen 26 mg/dL (7-20) Creatinine 0.8 mg/dL (0.6-1.0) Estimated GFR (Cockcroft-Gault) 70.3 BUN/Creatinine Ratio 33 (6-20) Glucose Level 97 mg/dL (70-99) Calcium Level 8.4 mg/dL (8.5-10.1) Total Bilirubin 0.3 mg/dL (0.2-1.0) Aspartate Amino Transf (AST/SGOT) 27 U/L (15-37) Alanine Aminotransferase (ALT/SGPT) 26 U/L (14-59) Alkaline Phosphatase 60 U/L (46-116) Total Protein 5.7 g/dL (6.4-8.2) Albumin 2.8 g/dL (3.4-5.0) Albumin/Globulin Ratio 1.0 (1.0-1.7) Comment Review of Relevant I have reviewed the following items vidal (where applicable) has been applied. Labs Laboratory Tests Test 07/17/18 03:40 07/18/18 03:00 White Blood Count 5.5 x10^3/uL (4.0-11.0) 5.8 x10^3/uL (4.0-11.0) Red Blood Count 3.63 x10^6/uL (3.50-5.40) 3.03 x10^6/uL (3.50-5.40) Hemoglobin 11.1 g/dL (12.0-15.5) 9.3 g/dL (12.0-15.5) Hematocrit 34.3 % (36.0-47.0) 28.7 % (36.0-47.0) Mean Corpuscular Volume 95 fL (79-100) 95 fL (79-100) Mean Corpuscular Hemoglobin 31 pg (25-35) 31 pg (25-35) Mean Corpuscular Hemoglobin Concent 32 g/dL (31-37) 32 g/dL (31-37) Red Cell Distribution Width 14.7 % (11.5-14.5) 14.6 % (11.5-14.5) Platelet Count 264 x10^3/uL (140-400) 249 x10^3/uL (140-400) Neutrophils (%) (Auto) 51 % (31-73) 52 % (31-73) Lymphocytes (%) (Auto) 28 % (24-48) 27 % (24-48) Monocytes (%) (Auto) 9 % (0-9) 9 % (0-9) Eosinophils (%) (Auto) 10 % (0-3) 11 % (0-3) Basophils (%) (Auto) 1 % (0-3) 1 % (0-3) Neutrophils # (Auto) 2.8 x10^3uL (1.8-7.7) 3.0 x10^3uL (1.8-7.7) Lymphocytes # (Auto) 1.6 x10^3/uL (1.0-4.8) 1.6 x10^3/uL (1.0-4.8) Monocytes # (Auto) 0.5 x10^3/uL (0.0-1.1) 0.5 x10^3/uL (0.0-1.1) Eosinophils # (Auto) 0.6 x10^3/uL (0.0-0.7) 0.6 x10^3/uL (0.0-0.7) Basophils # (Auto) 0.1 x10^3/uL (0.0-0.2) 0.1 x10^3/uL (0.0-0.2) Sodium Level 144 mmol/L (136-145) 146 mmol/L (136-145) Potassium Level 3.9 mmol/L (3.5-5.1) 4.0 mmol/L (3.5-5.1) Chloride Level 104 mmol/L (98-107) 106 mmol/L (98-107) Carbon Dioxide Level 32 mmol/L (21-32) 32 mmol/L (21-32) Anion Gap 8 (6-14) 8 (6-14) Blood Urea Nitrogen 27 mg/dL (7-20) 26 mg/dL (7-20) Creatinine 0.8 mg/dL (0.6-1.0) 0.8 mg/dL (0.6-1.0) Estimated GFR (Cockcroft-Gault) 70.3 70.3 BUN/Creatinine Ratio 34 (6-20) 33 (6-20) Glucose Level 108 mg/dL (70-99) 97 mg/dL (70-99) Calcium Level 9.0 mg/dL (8.5-10.1) 8.4 mg/dL (8.5-10.1) Total Bilirubin 0.3 mg/dL (0.2-1.0) 0.3 mg/dL (0.2-1.0) Aspartate Amino Transf (AST/SGOT) 32 U/L (15-37) 27 U/L (15-37) Alanine Aminotransferase (ALT/SGPT) 33 U/L (14-59) 26 U/L (14-59) Alkaline Phosphatase 73 U/L (46-116) 60 U/L (46-116) Total Protein 6.6 g/dL (6.4-8.2) 5.7 g/dL (6.4-8.2) Albumin 3.4 g/dL (3.4-5.0) 2.8 g/dL (3.4-5.0) Albumin/Globulin Ratio 1.1 (1.0-1.7) 1.0 (1.0-1.7) Laboratory Tests Test 07/18/18 03:00 White Blood Count 5.8 x10^3/uL (4.0-11.0) Red Blood Count 3.03 x10^6/uL (3.50-5.40) Hemoglobin 9.3 g/dL (12.0-15.5) Hematocrit 28.7 % (36.0-47.0) Mean Corpuscular Volume 95 fL (79-100) Mean Corpuscular Hemoglobin 31 pg (25-35) Mean Corpuscular Hemoglobin Concent 32 g/dL (31-37) Red Cell Distribution Width 14.6 % (11.5-14.5) Platelet Count 249 x10^3/uL (140-400) Neutrophils (%) (Auto) 52 % (31-73) Lymphocytes (%) (Auto) 27 % (24-48) Monocytes (%) (Auto) 9 % (0-9) Eosinophils (%) (Auto) 11 % (0-3) Basophils (%) (Auto) 1 % (0-3) Neutrophils # (Auto) 3.0 x10^3uL (1.8-7.7) Lymphocytes # (Auto) 1.6 x10^3/uL (1.0-4.8) Monocytes # (Auto) 0.5 x10^3/uL (0.0-1.1) Eosinophils # (Auto) 0.6 x10^3/uL (0.0-0.7) Basophils # (Auto) 0.1 x10^3/uL (0.0-0.2) Sodium Level 146 mmol/L (136-145) Potassium Level 4.0 mmol/L (3.5-5.1) Chloride Level 106 mmol/L (98-107) Carbon Dioxide Level 32 mmol/L (21-32) Anion Gap 8 (6-14) Blood Urea Nitrogen 26 mg/dL (7-20) Creatinine 0.8 mg/dL (0.6-1.0) Estimated GFR (Cockcroft-Gault) 70.3 BUN/Creatinine Ratio 33 (6-20) Glucose Level 97 mg/dL (70-99) Calcium Level 8.4 mg/dL (8.5-10.1) Total Bilirubin 0.3 mg/dL (0.2-1.0) Aspartate Amino Transf (AST/SGOT) 27 U/L (15-37) Alanine Aminotransferase (ALT/SGPT) 26 U/L (14-59) Alkaline Phosphatase 60 U/L (46-116) Total Protein 5.7 g/dL (6.4-8.2) Albumin 2.8 g/dL (3.4-5.0) Albumin/Globulin Ratio 1.0 (1.0-1.7) Medications Current Medications Aspirin (Children'S Aspirin) 324 mg 1X ONCE PO Last administered on 07/10/18 16:36; Start 07/10/18 at 15:45; Stop 07/10/18 at 16:30; Status DC Albuterol Sulfate (Ventolin Neb Soln) 2.5 mg PRN Q6HRS PRN INH SHORTNESS OF BREATH Last administered on 07/18/18 02:42; Start 07/10/18 at 19:00 Alprazolam (Xanax) 0.75 mg PRN DAILY PRN PO ANXIETY / AGITATION Last administered on 07/13/18 21:44; Start 07/10/18 at 19:00; Stop 07/15/18 at 16:17 ; Status DC Apixaban (Eliquis) 5 mg BID PO Last administered on 07/15/18 12:46; Start 07/10 at 21:00 Aspirin (Children'S Aspirin) 81 mg DAILY PO Last administered on 07/17/18 12: 38; Start 07/11/18 at 09:00 Atorvastatin Calcium (Lipitor) 40 mg QHS PO Last administered on 07/17/18 20: 35; Start 07/10/18 at 21:00 Furosemide (Lasix) 10 mg DAILY PO Last administered on 07/17/18 12:40; Start 07/11/18 at 09:00 Isosorbide Mononitrate (Imdur) 30 mg DAILY PO Last administered on 07/18/18 08 :59; Start 07/11/18 at 09:00 Levothyroxine Sodium (Synthroid) 75 mcg DAILY07 PO Last administered on 06:15; Start 07/11/18 at 07:00; Stop 07/12/18 at 17:17; Status DC Lisinopril (Prinivil) 10 mg DAILY PO Last administered on 07/18/18 08:59; Start 07/11/18 at 09:00 Metoprolol Succinate (Toprol Xl) 25 mg DAILY PO Last administered on 07/17/18at 12:40; Start 07/11/18 at 09:00 Nitroglycerin (Nitrostat) 0.4 mg PRN Q5MIN PRN SL CHEST PAIN; Start 07/10/18 at 19:00 Triamcinolone Acetonide (Kenalog) 1 mayank PRN BID PRN TP RASH; Start 07/10/18 at 19:00 Non-Formulary Medication (Alendronate Sodium (Fosamax)) 1 tab WEEKLY PO ; Start 07/17/18 at 09:00; Status UNV Calcium Carbonate/ Glycine (Oscal) 1,000 mg TIDAFTMEAL PO Last administered on 07/17/18at 12:39; Start 07/11/18 at 09:00 Vitamin D (Vitamin D3) 2,000 unit DAILY PO Last administered on 07/17/18 12:38 ; Start 07/11/18 at 09:00 Diltiazem HCl (Cardizem 24hr Cd) 120 mg DAILY PO Last administered on 08:59; Start 07/11/18 at 09:00 Guaifenesin (Robitussin) 400 mg PRN BID PRN PO COUGH; Start 07/10/18 at 19:15 Memantine (Namenda) 10 mg DAILY PO ; Start 07/11/18 at 09:00; Stop 07/11/18 at 12: 59; Status DC Multivitamins (Thera M Plus) 1 tab DAILY PO Last administered on 07/17/18 12: 38; Start 07/11/18 at 09:00 Fish Oil (Fish Oil) 1,000 mg DAILY PO Last administered on 07/17/18 12:38; Start 07/11/18 at 09:00 Pantoprazole Sodium (Protonix) 40 mg DAILYAC PO Last administered on 07/18/18 08:59; Start 07/11/18 at 07:30 Non-Formulary Medication (Potassium Chloride ) 99 mg DAILY PO ; Start 07/11/18 at 09:00; Status UNV Pyridoxine HCl (Vitamin B-6) 200 mg DAILY PO Last administered on 07/17/18 12: 38; Start 07/11/18 at 09:00 Non-Formulary Medication (Ubidecarenone (Coenzyme Q10)) 10 mg DAILY PO ; Start 07/11/18 at 09:00; Status UNV Non-Formulary Medication 1 ea DAILY INH Last administered on 07/17/18 12:37; Start 07/11/18 at 09:00 Info (Anti-Coagulation Monitoring By Pharmacy) 1 each PRN DAILY PRN MC SEE COMMENTS Last administered on 07/18/18 09:12; Start 07/11/18 at 07:45 Acetaminophen (Tylenol) 650 mg PRN Q6HRS PRN PO TEMP > 100.4F; Start 07/11/18 at 08:45 Acetaminophen (Tylenol Supp) 650 mg PRN Q4HRS PRN NE TEMP > 100.4F; Start at 08:45 Memantine (Namenda) 10 mg QHS PO Last administered on 07/17/18 20:35; Start at 21:00 Magnesium Hydroxide (Milk Of Magnesia) 2,400 mg PRN DAILY PRN PO CONSTIPATION Last administered on 07/16/18 08:59; Start 07/12/18 at 14:15 Albuterol Sulfate (Ventolin Neb Soln) 2.5 mg RTQID NEB Last administered on 07:16; Start 07/12/18 at 20:00 Levothyroxine Sodium (Synthroid) 100 mcg DAILY07 PO Last administered on 08:59; Start 07/13/18 at 07:00 Iohexol (Omnipaque 350 Mg/ml) 75 ml 1X ONCE IV Last administered on 07/13/18 07:39; Start 07/13/18 at 07:15; Stop 07/13/18 at 07:16; Status DC Info (CONTRAST GIVEN -- Rx MONITORING) 1 each PRN DAILY PRN MC SEE COMMENTS; Start 07/13/18 at 07:15; Stop 07/15/18 at 07:14; Status DC Magnesium Hydroxide (Milk Of Magnesia) 2,400 mg 1X ONCE PO Last administered on 07/13/18at 12:36; Start 07/13/18 at 11:00; Stop 07/13/18 at 11:01; Status DC Alprazolam (Xanax) 0.25 mg PRN Q8HRS PRN PO ANXIETY / AGITATION Last administered on 07/18/18at 08:59; Start 07/14/18 at 17:15 Lidocaine/Sodium Bicarbonate (Buffered Lidocaine 1%) 3 ml STK-MED ONCE .ROUTE ; Start 07/15/18 at 13:13; Stop 07/15/18 at 13:14; Status DC Iohexol (Omnipaque 300 Mg/ml) 100 ml STK-MED ONCE .ROUTE ; Start 07/15/18 at 13: 13; Stop 07/15/18 at 13:14; Status DC Heparin Sodium/ Sodium Chloride 1,000 ml @ As Directed STK-MED ONCE .ROUTE ; Start 07/15/18 at 13:14; Stop 07/15/18 at 13:15; Status DC Pantoprazole Sodium (Protonix) 40 mg 1X ONCE PO Last administered on at 19:51; Start 07/16/18 at 19:30; Stop 07/16/18 at 19:31; Status DC Iohexol (Omnipaque 240 Mg/ml) 100 ml STK-MED ONCE .ROUTE ; Start 07/17/18 at 09: 43; Stop 07/17/18 at 09:44; Status DC Lidocaine/Sodium Bicarbonate (Buffered Lidocaine 1%) 3 ml STK-MED ONCE .ROUTE ; Start 07/17/18 at 09:44; Stop 07/17/18 at 09:45; Status DC Heparin Sodium/ Sodium Chloride 500 ml @ As Directed STK-MED ONCE .ROUTE ; Start 07/17/18 at 09:44; Stop 07/17/18 at 09:45; Status DC Midazolam HCl (Versed) 2 mg STK-MED ONCE .ROUTE ; Start 07/17/18 at 10:47; Stop 07/17/18 at 10:48; Status DC Fentanyl Citrate (Fentanyl 2ml Vial) 100 mcg STK-MED ONCE .ROUTE ; Start at 10:47; Stop 07/17/18 at 10:48; Status DC Iohexol (Omnipaque 240 Mg/ml) 100 ml STK-MED ONCE .ROUTE ; Start 07/17/18 at 10: 51; Stop 07/17/18 at 10:52; Status DC Heparin Sodium/ Sodium Chloride (HEPARIN for ARTERIAL LINE FLUSH) 1,000 unit 1X ONCE IART Last administered on 07/17/18at 11:45; Start 07/17/18 at 11:45; Stop 07/17/18 at 11:46; Status DC Lidocaine/Sodium Bicarbonate (Buffered Lidocaine 1%) 3 ml 1X ONCE IJ Last administered on 07/17/18at 11:58; Start 07/17/18 at 11:45; Stop 07/17/18 at 11:46 ; Status DC Midazolam HCl (Versed) 2 mg 1X ONCE IV Last administered on 07/17/18at 11:59; Start 07/17/18 at 11:45; Stop 07/17/18 at 11:46; Status DC Fentanyl Citrate (Fentanyl 2ml Vial) 100 mcg 1X ONCE IV Last administered on at 11:59; Start 07/17/18 at 11:45; Stop 07/17/18 at 11:46; Status DC Iohexol (Omnipaque 240 Mg/ml) 100 ml 1X ONCE INT ART Last administered on 07/17at 11:58; Start 07/17/18 at 11:45; Stop 07/17/18 at 11:46; Status DC Vancomycin HCl 250 ml @ 250 mls/hr 1X PREOP PRN IV PRIOR TO PROCEDURE Last administered on 07/18/18at 09:30; Start 07/18/18 at 06:00; Stop 07/18/18 at 18:00 Ondansetron HCl (Zofran) 4 mg PRN Q6HRS PRN IV NAUSEA/VOMITING; Start 07/18/18 at 06:45; Stop 07/19/18 at 06:44 Fentanyl Citrate (Fentanyl 2ml Vial) 25 mcg PRN Q5MIN PRN IV MILD PAIN; Start 07/18/18 at 06:45; Stop 07/19/18 at 06:44 Fentanyl Citrate (Fentanyl 2ml Vial) 50 mcg PRN Q5MIN PRN IV MODERATE TO SEVERE PAIN; Start 07/18/18 at 06:45; Stop 07/19/18 at 06:44 Ringer's Solution 1,000 ml @ 30 mls/hr Q24H IV Last administered on 07/18/18at 09:39; Start 07/18/18 at 06:31; Stop 07/18/18 at 18:30 Lidocaine HCl (Xylocaine-Mpf 1% 2ml Vial) 2 ml PRN 1X PRN ID PRIOR TO IV START Last administered on 07/18/18at 09:40; Start 07/18/18 at 06:45; Stop 07/19/18 at 06:44 Prochlorperazine Edisylate (Compazine) 5 mg PACU PRN PRN IV NAUSEA, MRX1; Start 07/18/18 at 06:45; Stop 07/19/18 at 06:44 Heparin Sodium (Porcine) 5000 unit/Sodium Chloride 505 ml @ 505 mls/hr 1X ONCE IRR ; Start 07/18/18 at 07:25; Stop 07/18/18 at 08:24; Status DC Ropivacaine (Naropin 0.5%) 20 ml STK-MED ONCE .ROUTE ; Start 07/18/18 at 08:54; Stop 07/18/18 at 08:55; Status DC Nicardipine HCl (Cardene) 25 mg STK-MED ONCE IV ; Start 07/18/18 at 09:16; Stop 07/18/18 at 09:17; Status DC Midazolam HCl (Versed) 2 mg STK-MED ONCE .ROUTE ; Start 07/18/18 at 09:17; Stop 07/18/18 at 09:18; Status DC Phenylephrine HCl (Rito-Synephrine Inj) 10 mg STK-MED ONCE .ROUTE ; Start at 09:17; Stop 07/18/18 at 09:18; Status DC Albuterol/ Ipratropium (Duoneb) 3 ml STK-MED ONCE .ROUTE ; Start 07/18/18 at 09: 31; Stop 07/18/18 at 09:32; Status DC Albuterol/ Ipratropium (Duoneb) 3 ml 1X ONCE NEB Last administered on at 09:38; Start 07/18/18 at 09:45; Stop 07/18/18 at 09:46; Status DC Bupivacaine HCl/ Epinephrine Bitart (Sensorcaine-Epi 0.25%-1:203929 Mpf) 30 ml STK-MED ONCE .ROUTE ; Start 07/18/18 at 08:37; Stop 07/18/18 at 09:37; Status DC Dexamethasone Sodium Phosphate (Decadron) 20 mg STK-MED ONCE .ROUTE ; Start at 09:44; Stop 07/18/18 at 09:45; Status DC Ondansetron HCl (Zofran) 4 mg STK-MED ONCE .ROUTE ; Start 07/18/18 at 09:44; Stop 07/18/18 at 09:45; Status DC Propofol 20 ml @ As Directed STK-MED ONCE IV ; Start 07/18/18 at 09:44; Stop at 09:45; Status DC Lidocaine HCl (Lidocaine Pf 2% Vial) 5 ml STK-MED ONCE .ROUTE ; Start 07/18/18 at 09:44; Stop 07/18/18 at 09:45; Status DC Rocuronium [place] (Zemuron) 50 mg STK-MED ONCE .ROUTE ; Start 07/18/18 at 09:44 ; Stop 07/18/18 at 09:45; Status DC Nitroglycerin/ Dextrose 250 ml @ As Directed STK-MED ONCE IV ; Start 07/18/18 at 09:52; Stop 07/18/18 at 09:53; Status DC Active Scripts Active Reported Alprazolam 0.5 Mg Tablet 0.5 Mg PO PRN DAILY PRN Anoro Ellipta 62.5-25 Mcg Inh (Umeclidinium Brm/Vilanterol Tr) 1 Each Disk.w.dev 1 Each IH DAILY Triamcinolone Acetonide 0.1% Oint (Triamcinolone Acetonide) 15 Gm Oint...g. 1 Mayank TP PRN BID MIX WITH EUCERIN DIRECTED BY PHYSICIAN Synthroid (Levothyroxine Sodium) 75 Mcg Tablet 1 Tab PO DAILY B-6 (Pyridoxine HCl (Vitamin B6)) 200 Mg Tablet.er 200 Mg PO DAILY Proair Hfa Inhaler (Albuterol Sulfate) 8.5 Gm Hfa.aer.ad 2 Puff INH PRN Q6HRS PRN Potassium Chloride 20 Meq Tablet.er 99 Mg PO DAILY Protonix (Pantoprazole Sodium) 20 Mg Tablet.dr 40 Mg PO DAILY Fish Oil 1,000 mg Softgel ([place]-3/Dha/Epa/Fish Oil) 1,000 Mg Capsule 1,000 Mg PO DAILY NITROGLYCERIN SubLingual (Nitroglycerin) 0.4 Mg Tab.subl 0.4 Mg SL PRN Q5MIN PRN Multivitamins (Multivitamin) 1 Each Tablet 1 Tab PO DAILY Metoprolol Succinate ( Xl ) (Metoprolol Succinate) 25 Mg Tab.er.24h 25 Mg PO DAILY Namenda (Memantine Hcl) 10 Mg Tablet 10 Mg PO DAILY Lisinopril 10 Mg Tablet 10 Mg PO DAILY Isosorbide Mononitrate Er (Isosorbide Mononitrate) 30 Mg Tab.er.24h 30 Mg PO DAILY Guaifenesin 400 Mg Tablet 400 Mg PO PRN BID Lasix (Furosemide) 20 Mg Tablet 10 Mg PO DAILY Eliquis (Apixaban) 5 Mg Tablet 5 Mg PO BID Cardizem Cd (Diltiazem Hcl) 180 Mg Cap.er.24h 120 Mg PO DAILY Coenzyme Q10 (Ubidecarenone) 10 Mg Capsule 10 Mg PO DAILY Vitamin D (Cholecalciferol (Vitamin D3)) 2,000 Unit Capsule 1 Cap PO DAILY Calcium Carbonate 600 Mg Tablet 1,200 Mg PO TID Lipitor (Atorvastatin Calcium) 40 Mg Tablet 1 Tab PO QHS Aspirin 81 Mg Tab.chew 1 Tab PO DAILY Xanax (Alprazolam) 0.5 Mg Tablet 0.75 Mg PO PRN DAILY PRN Fosamax (Alendronate Sodium) 70 Mg Tablet 1 Tab PO WEEKLY Proair Hfa Inhaler (Albuterol Sulfate) 8.5 Gm Hfa.aer.ad 1 Puff INH PRN Q6HRS PRN Vitals/I & O Vital Sign - Last 24 Hours 07/17/18 07/17/18 07/17/18 07/17/18 11:59 12:00 12:15 12:15 Pulse 68 69 Resp 16 16 B/P (MAP) 187/74 (111) Pulse Ox 100 100 94 O2 Delivery Nasal Cannula Nasal Cannula Room Air O2 Flow Rate 2.0 2.0 07/17/18 07/17/18 07/17/18 07/17/18 12:30 12:39 12:39 12:40 Pulse 66 68 68 68 B/P (MAP) 152/70 (97) 178/87 178/87 178/87 07/17/18 07/17/18 07/17/18 07/17/18 12:40 12:45 13:00 13:09 Pulse 68 75 71 B/P (MAP) 178/87 160/77 (104) 170/84 (112) Pulse Ox 94 O2 Delivery Room Air 07/17/18 07/17/18 07/17/18 07/17/18 13:15 13:30 13:45 14:00 Pulse 72 72 71 67 B/P (MAP) 176/79 (111) 173/74 (107) 159/69 (99) 160/75 (103) 07/17/18 07/17/18 07/17/18 07/17/18 14:30 14:45 15:00 15:00 Temp 98.5 98.5 Pulse 66 62 62 64 B/P (MAP) 146/82 (103) 159/69 (99) 143/64 (90) 140/86 (104) Pulse Ox 97 O2 Delivery Nasal Cannula O2 Flow Rate 2.0 07/17/18 07/17/18 07/17/18 07/17/18 15:30 15:35 16:45 19:28 Temp 98.4 98.4 Pulse 69 67 69 Resp 18 B/P (MAP) 173/81 (111) 140/86 (104) 144/82 (102) Pulse Ox 94 97 O2 Delivery Room Air Nasal Cannula O2 Flow Rate 2.0 07/17/18 07/17/18 07/17/18 07/18/18 19:54 20:24 22:38 02:31 Temp 98.5 98.0 98.5 98.0 Pulse 68 67 Resp 18 22 B/P (MAP) 107/49 (68) 153/76 (101) Pulse Ox 96 98 97 O2 Delivery Nasal Cannula Nasal Cannula Nasal Cannula Nasal Cannula O2 Flow Rate 2.0 2.0 2.0 2.0 07/18/18 07/18/18 07/18/18 07/18/18 02:42 06:49 07:17 08:00 Temp 97.9 97.9 Pulse 68 Resp 21 B/P (MAP) 158/64 (95) Pulse Ox 96 98 96 O2 Delivery Nasal Cannula Nasal Cannula Nasal Cannula Nasal Cannula O2 Flow Rate 2.0 2.0 2.0 2.0 07/18/18 07/18/18 07/18/18 07/18/18 08:59 08:59 08:59 09:29 Temp 97.9 97.9 Pulse 68 68 68 60 Resp 20 B/P (MAP) 158/64 158/64 158/64 145/60 Pulse Ox 100 O2 Delivery Nasal Cannula O2 Flow Rate 2.0 Intake and Output 07/17/18 07/17/18 07/18/18 15:00 23:00 07:00 Intake Total 320 ml 0 ml Balance 320 ml 0 ml Nutrition Consultation Dietary Evaluation: Recommendations by RD: Protein supplementation Comments: REC resume regular diet when able REC Ensure BID (strawberry) breakfast and dinner Expected Outcomes/Goals: PO intake to meet >75% est needs- goal ongoing Malnutrition Findings: Body Fat Depletion (Non Severe: Mild Depletion Weight Status: Appropriate RUBEN GARCIA MD Jul 18, 2018 10:18
[2018-07-18] MEDS ORDERED: GLYCOPYRROLATE 1 MG/5 ML VIAL. ONE (10:24)
[2018-07-18] MEDS ORDERED: SURGICEL HEMOSTAT 4X8 EACH. ONE (10:41)
[2018-07-18] MEDS ORDERED: 0.9 % SODIUM CHLORIDE 20 ML VIAL. IJ ONE (10:58)
[2018-07-18] MEDS ORDERED: HEPARIN for IV BOLUS 10,000 UNIT/10 ML VIAL. ONE (10:58)
[2018-07-18] MEDS ORDERED: NEOSTIGMINE 10 MG/10 ML VIAL. ONE (11:17)
[2018-07-18] MEDS ORDERED: FLUMAZENIL 0.5 MG/5 ML VIAL. IV ONE (12:16)
[2018-07-18] MEDS ORDERED: SEVOFLURANE > 120 MINUTES. IH ONE (12:22)
[2018-07-18] MEDS ORDERED: PROTAMINE 50 MG/5 ML VIAL. IV ONE (12:22)
[2018-07-18] MEDS: IV NORMAL SALINE 1000ML BAG 1,000 ML IV SCH ×2 (12:24→22:24)
[2018-07-18] MEDS ORDERED: 0.9 % SODIUM CHLORIDE 10 ML DISP.SYRIN. IV PRN (12:30)
[2018-07-18] MEDS ORDERED: HYDROcodone/APAP 5/325MG 1 TAB TABLET PO PRN (12:30)
[2018-07-18] MEDS ORDERED: HYDROmorphone 2 MG/ML VIAL IV PRN (12:30)
--- NOTE | 2018-07-18 12:33 | PDOC4 ---
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 Performing this procedure without account assistant would have prolonged the procedure, made the procedure more difficult/complicated and expose the patient to increased risk. In general carotid endarterectomy is not a procedure that is well suited to single surgeon single surgical physician assistant performance. Anesthesia Type: Gen. Blood Loss: 50 mL Specimans Obtained: None Findings: High-grade critical right carotid stenosis with soft hemorrhagic plaque/ thrombus present in the lumen consistent with recent plaque rupture and embolic event consistent with the patient's history Intraoperatively a shunt was used due to general anesthesia Patch angioplasty closure using a bovine pericardial patch due to longitudinal endarterectomy Complications: None Operative Note: The patient was escorted to the operating room and placed supine on the table. After placement of appropriate lines and monitoring devices general endotracheal anesthesia was induced without difficulty. The right neck was prepped and draped in usual sterile fashion. An appropriate timeout was performed. Attention was directed to the right neck where local anesthetic was injected and a small longitudinal incision was made along the anterior border the sternocleidomastoid muscle centered over the carotid bifurcation. This was carried down with Bovie cautery through the platysma and the platysma was divided. Below this we identified the sternal cleidomastoid muscle and dissection was carried out in the avascular plane anterior to this. Identified the carotid sheath and within this identified the common carotid artery, the vagus nerve, and the jugular vein. The patient was given intravenous heparin as the common carotid artery was carefully dissected free from the other structures and controlled with an umbilical tape. Dissection was then carried out along the anterior border the artery/medial border of the vein until the facial vein was identified. This was completely isolated from surrounding structures and ligated proximally and distally with ties and clips and divided between these. Under this we identified the carotid bifurcation and we initially left this alone. Careful dissection was carried out along the internal carotid artery and a soft spot amenable to clamping above the area of disease was identified, palpated used right angle clamp, and controlled with a loosely placed vessel loop. At this point the heparin been given adequate time for circulation. A therapeutic ACT was confirmed and the distal ICA above the area of disease was occluded with a small Ar bulldog clamp. The external carotid artery was quickly dissected free from surrounding structures and controlled with a vessel loop and then this and the common carotid artery were occluded. An anterior arteriotomy was created on the common carotid artery using a #11 scalpel and this was extended longitudinally with Gtz angled scissors across the bifurcation onto the internal carotid artery and out past the area of disease. The lumen was all irrigated with heparinized saline and then a shunt was placed in the internal carotid artery, aggressively backbled, and then placed into the common carotid artery and normal forward flow was returned to the brain. With the shunt in place, a standard endarterectomy was performed using a Clarence endarterectomy spatula. The plaque was cut flush at the common carotid artery, everted from the external carotid artery with a good endpoint, and feathered down to a nice endpoint at the internal carotid without any shelf or flap distally. The entire lumen was cleared of all debris and irrigated aggressively with heparinized saline. The arteriotomy was then closed. This was done with a bovine pericardial patch in the standard running patch angioplasty fashion with a 6-0 Prolene suture and 5-0 Prolene suture. Just prior to completion of the repair the shunt was removed and all 3 branches were aggressively backbled/4 flushed and irrigated with heparinized saline. The repair was completed and normal for flow was returned to the external carotid artery and then after several heartbeats to the internal carotid artery. Excellent hemostasis was ensured along the suture line and a hand-held continuous wave confirmed an excellent biphasic signal in the ICA and a triphasic signal in the ECA. Protamine was used to reverse the heparin and excellent hemostasis was ensured throughout the entire operative field. A small amount of Surgicel was packed around the artery and then the wound was closed. The platysma was reapproximated with a running 2-0 Vicryl and the skin was closed with a running subdermal 3-0 Vicryl followed by subcuticular 4-0 Vicryl after injection of more local anesthetic. The neck was cleaned and dried, sterile dressing was placed over the incision, and the patient was awakened and extubated in the operating room. She was found to be moving extremities with purposeful movement of the left upper extremity and was escorted to recovery in stable condition. There were no complications. The patient tolerated the procedure well throughout, and at the end of the case all sponge, needle, and instrument counts were reported to me as correct 2. DANY NEGRON MD Jul 18, 2018 12:33
[2018-07-18] MEDS ORDERED: fentaNYL PF VIAL 100 MCG/2 ML VIAL ONE (13:13)
[2018-07-18] MEDS: fentaNYL PF VIAL 100 MCG/2 ML VIAL IV PRN ×3 (13:18→14:42)
[2018-07-18] MEDS: ACETAMINOPHEN 325 MG TABLET. PO SCH ×2 (14:00→21:24)
--- NOTE | 2018-07-18 14:41 | PDOC ---
PROGRESS NOTES Subjective Subjective Patient was seen in recovery status post right CEA She has no new complaints other than some mild right neck incision pain which is well-controlled She denies any headache, chest pain, shortness of breath etc. 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 Labs Laboratory Tests Test 07/17/18 03:40 07/18/18 03:00 07/18/18 10:52 White Blood Count 5.5 x10^3/uL (4.0-11.0) 5.8 x10^3/uL (4.0-11.0) Red Blood Count 3.63 x10^6/uL (3.50-5.40) 3.03 x10^6/uL (3.50-5.40) Hemoglobin 11.1 g/dL (12.0-15.5) 9.3 g/dL (12.0-15.5) Hematocrit 34.3 % (36.0-47.0) 28.7 % (36.0-47.0) Mean Corpuscular Volume 95 fL (79-100) 95 fL (79-100) Mean Corpuscular Hemoglobin 31 pg (25-35) 31 pg (25-35) Mean Corpuscular Hemoglobin Concent 32 g/dL (31-37) 32 g/dL (31-37) Red Cell Distribution Width 14.7 % (11.5-14.5) 14.6 % (11.5-14.5) Platelet Count 264 x10^3/uL (140-400) 249 x10^3/uL (140-400) Neutrophils (%) (Auto) 51 % (31-73) 52 % (31-73) Lymphocytes (%) (Auto) 28 % (24-48) 27 % (24-48) Monocytes (%) (Auto) 9 % (0-9) 9 % (0-9) Eosinophils (%) (Auto) 10 % (0-3) 11 % (0-3) Basophils (%) (Auto) 1 % (0-3) 1 % (0-3) Neutrophils # (Auto) 2.8 x10^3uL (1.8-7.7) 3.0 x10^3uL (1.8-7.7) Lymphocytes # (Auto) 1.6 x10^3/uL (1.0-4.8) 1.6 x10^3/uL (1.0-4.8) Monocytes # (Auto) 0.5 x10^3/uL (0.0-1.1) 0.5 x10^3/uL (0.0-1.1) Eosinophils # (Auto) 0.6 x10^3/uL (0.0-0.7) 0.6 x10^3/uL (0.0-0.7) Basophils # (Auto) 0.1 x10^3/uL (0.0-0.2) 0.1 x10^3/uL (0.0-0.2) Sodium Level 144 mmol/L (136-145) 146 mmol/L (136-145) Potassium Level 3.9 mmol/L (3.5-5.1) 4.0 mmol/L (3.5-5.1) Chloride Level 104 mmol/L (98-107) 106 mmol/L (98-107) Carbon Dioxide Level 32 mmol/L (21-32) 32 mmol/L (21-32) Anion Gap 8 (6-14) 8 (6-14) Blood Urea Nitrogen 27 mg/dL (7-20) 26 mg/dL (7-20) Creatinine 0.8 mg/dL (0.6-1.0) 0.8 mg/dL (0.6-1.0) Estimated GFR (Cockcroft-Gault) 70.3 70.3 BUN/Creatinine Ratio 34 (6-20) 33 (6-20) Glucose Level 108 mg/dL (70-99) 97 mg/dL (70-99) Calcium Level 9.0 mg/dL (8.5-10.1) 8.4 mg/dL (8.5-10.1) Total Bilirubin 0.3 mg/dL (0.2-1.0) 0.3 mg/dL (0.2-1.0) Aspartate Amino Transf (AST/SGOT) 32 U/L (15-37) 27 U/L (15-37) Alanine Aminotransferase (ALT/SGPT) 33 U/L (14-59) 26 U/L (14-59) Alkaline Phosphatase 73 U/L (46-116) 60 U/L (46-116) Total Protein 6.6 g/dL (6.4-8.2) 5.7 g/dL (6.4-8.2) Albumin 3.4 g/dL (3.4-5.0) 2.8 g/dL (3.4-5.0) Albumin/Globulin Ratio 1.1 (1.0-1.7) 1.0 (1.0-1.7) Activated Clotting Time 225 sec (92-181) Laboratory Tests Test 07/18/18 03:00 07/18/18 10:52 White Blood Count 5.8 x10^3/uL (4.0-11.0) Red Blood Count 3.03 x10^6/uL (3.50-5.40) Hemoglobin 9.3 g/dL (12.0-15.5) Hematocrit 28.7 % (36.0-47.0) Mean Corpuscular Volume 95 fL (79-100) Mean Corpuscular Hemoglobin 31 pg (25-35) Mean Corpuscular Hemoglobin Concent 32 g/dL (31-37) Red Cell Distribution Width 14.6 % (11.5-14.5) Platelet Count 249 x10^3/uL (140-400) Neutrophils (%) (Auto) 52 % (31-73) Lymphocytes (%) (Auto) 27 % (24-48) Monocytes (%) (Auto) 9 % (0-9) Eosinophils (%) (Auto) 11 % (0-3) Basophils (%) (Auto) 1 % (0-3) Neutrophils # (Auto) 3.0 x10^3uL (1.8-7.7) Lymphocytes # (Auto) 1.6 x10^3/uL (1.0-4.8) Monocytes # (Auto) 0.5 x10^3/uL (0.0-1.1) Eosinophils # (Auto) 0.6 x10^3/uL (0.0-0.7) Basophils # (Auto) 0.1 x10^3/uL (0.0-0.2) Sodium Level 146 mmol/L (136-145) Potassium Level 4.0 mmol/L (3.5-5.1) Chloride Level 106 mmol/L (98-107) Carbon Dioxide Level 32 mmol/L (21-32) Anion Gap 8 (6-14) Blood Urea Nitrogen 26 mg/dL (7-20) Creatinine 0.8 mg/dL (0.6-1.0) Estimated GFR (Cockcroft-Gault) 70.3 BUN/Creatinine Ratio 33 (6-20) Glucose Level 97 mg/dL (70-99) Calcium Level 8.4 mg/dL (8.5-10.1) Total Bilirubin 0.3 mg/dL (0.2-1.0) Aspartate Amino Transf (AST/SGOT) 27 U/L (15-37) Alanine Aminotransferase (ALT/SGPT) 26 U/L (14-59) Alkaline Phosphatase 60 U/L (46-116) Total Protein 5.7 g/dL (6.4-8.2) Albumin 2.8 g/dL (3.4-5.0) Albumin/Globulin Ratio 1.0 (1.0-1.7) Activated Clotting Time 225 sec (92-181) Medications Current Medications Aspirin (Children'S Aspirin) 324 mg 1X ONCE PO Last administered on 07/10/18at 16:36; Start 07/10/18 at 15:45; Stop 07/10/18 at 16:30; Status DC Albuterol Sulfate (Ventolin Neb Soln) 2.5 mg PRN Q6HRS PRN INH SHORTNESS OF BREATH Last administered on 07/18/18at 12:34; Start 07/10/18 at 19:00 Alprazolam (Xanax) 0.75 mg PRN DAILY PRN PO ANXIETY / AGITATION Last administered on 07/13/18 21:44; Start 07/10/18 at 19:00; Stop 07/15/18 at 16:17 ; Status DC Apixaban (Eliquis) 5 mg BID PO Last administered on 07/15/18 12:46; Start 07/10 at 21:00 Aspirin (Children'S Aspirin) 81 mg DAILY PO Last administered on 07/17/18 12: 38; Start 07/11/18 at 09:00 Atorvastatin Calcium (Lipitor) 40 mg QHS PO Last administered on 07/17/18 20: 35; Start 07/10/18 at 21:00 Furosemide (Lasix) 10 mg DAILY PO Last administered on 07/17/18 12:40; Start 07/11/18 at 09:00 Isosorbide Mononitrate (Imdur) 30 mg DAILY PO Last administered on 07/18/18 08 :59; Start 07/11/18 at 09:00 Levothyroxine Sodium (Synthroid) 75 mcg DAILY07 PO Last administered on 06:15; Start 07/11/18 at 07:00; Stop 07/12/18 at 17:17; Status DC Lisinopril (Prinivil) 10 mg DAILY PO Last administered on 07/18/18 08:59; Start 07/11/18 at 09:00 Metoprolol Succinate (Toprol Xl) 25 mg DAILY PO Last administered on 07/17/18 12:40; Start 07/11/18 at 09:00 Nitroglycerin (Nitrostat) 0.4 mg PRN Q5MIN PRN SL CHEST PAIN; Start 07/10/18 at 19:00 Triamcinolone Acetonide (Kenalog) 1 mayank PRN BID PRN TP RASH; Start 07/10/18 at 19:00 Non-Formulary Medication (Alendronate Sodium (Fosamax)) 1 tab WEEKLY PO ; Start 07/17/18 at 09:00; Status UNV Calcium Carbonate/ Glycine (Oscal) 1,000 mg TIDAFTMEAL PO Last administered on 07/17/18 12:39; Start 07/11/18 at 09:00 Vitamin D (Vitamin D3) 2,000 unit DAILY PO Last administered on 07/17/18 12:38 ; Start 07/11/18 at 09:00 Diltiazem HCl (Cardizem 24hr Cd) 120 mg DAILY PO Last administered on 08:59; Start 07/11/18 at 09:00 Guaifenesin (Robitussin) 400 mg PRN BID PRN PO COUGH; Start 07/10/18 at 19:15 Memantine (Namenda) 10 mg DAILY PO ; Start 07/11/18 at 09:00; Stop 07/11/18 at 12: 59; Status DC Multivitamins (Thera M Plus) 1 tab DAILY PO Last administered on 07/17/18 12: 38; Start 07/11/18 at 09:00 Fish Oil (Fish Oil) 1,000 mg DAILY PO Last administered on 07/17/18 12:38; Start 07/11/18 at 09:00 Pantoprazole Sodium (Protonix) 40 mg DAILYAC PO Last administered on 07/18/18 08:59; Start 07/11/18 at 07:30 Non-Formulary Medication (Potassium Chloride ) 99 mg DAILY PO ; Start 07/11/18 at 09:00; Status UNV Pyridoxine HCl (Vitamin B-6) 200 mg DAILY PO Last administered on 07/17/18 12: 38; Start 07/11/18 at 09:00 Non-Formulary Medication (Ubidecarenone (Coenzyme Q10)) 10 mg DAILY PO ; Start 07/11/18 at 09:00; Status UNV Non-Formulary Medication 1 ea DAILY INH Last administered on 07/17/18 12:37; Start 07/11/18 at 09:00 Info (Anti-Coagulation Monitoring By Pharmacy) 1 each PRN DAILY PRN MC SEE COMMENTS Last administered on 07/18/18 09:12; Start 07/11/18 at 07:45 Acetaminophen (Tylenol) 650 mg PRN Q6HRS PRN PO TEMP > 100.4F; Start 07/11/18 at 08:45 Acetaminophen (Tylenol Supp) 650 mg PRN Q4HRS PRN NM TEMP > 100.4F; Start at 08:45 Memantine (Namenda) 10 mg QHS PO Last administered on 07/17/18 20:35; Start at 21:00 Magnesium Hydroxide (Milk Of Magnesia) 2,400 mg PRN DAILY PRN PO CONSTIPATION Last administered on 07/16/18at 08:59; Start 07/12/18 at 14:15 Albuterol Sulfate (Ventolin Neb Soln) 2.5 mg RTQID NEB Last administered on at 07:16; Start 07/12/18 at 20:00 Levothyroxine Sodium (Synthroid) 100 mcg DAILY07 PO Last administered on at 08:59; Start 07/13/18 at 07:00 Iohexol (Omnipaque 350 Mg/ml) 75 ml 1X ONCE IV Last administered on 07/13/18at 07:39; Start 07/13/18 at 07:15; Stop 07/13/18 at 07:16; Status DC Info (CONTRAST GIVEN -- Rx MONITORING) 1 each PRN DAILY PRN MC SEE COMMENTS; Start 07/13/18 at 07:15; Stop 07/15/18 at 07:14; Status DC Magnesium Hydroxide (Milk Of Magnesia) 2,400 mg 1X ONCE PO Last administered on 07/13/18at 12:36; Start 07/13/18 at 11:00; Stop 07/13/18 at 11:01; Status DC Alprazolam (Xanax) 0.25 mg PRN Q8HRS PRN PO ANXIETY / AGITATION Last administered on 07/18/18at 08:59; Start 07/14/18 at 17:15 Lidocaine/Sodium Bicarbonate (Buffered Lidocaine 1%) 3 ml STK-MED ONCE .ROUTE ; Start 07/15/18 at 13:13; Stop 07/15/18 at 13:14; Status DC Iohexol (Omnipaque 300 Mg/ml) 100 ml STK-MED ONCE .ROUTE ; Start 07/15/18 at 13: 13; Stop 07/15/18 at 13:14; Status DC Heparin Sodium/ Sodium Chloride 1,000 ml @ As Directed STK-MED ONCE .ROUTE ; Start 07/15/18 at 13:14; Stop 07/15/18 at 13:15; Status DC Pantoprazole Sodium (Protonix) 40 mg 1X ONCE PO Last administered on at 19:51; Start 07/16/18 at 19:30; Stop 07/16/18 at 19:31; Status DC Iohexol (Omnipaque 240 Mg/ml) 100 ml STK-MED ONCE .ROUTE ; Start 07/17/18 at 09: 43; Stop 07/17/18 at 09:44; Status DC Lidocaine/Sodium Bicarbonate (Buffered Lidocaine 1%) 3 ml STK-MED ONCE .ROUTE ; Start 07/17/18 at 09:44; Stop 07/17/18 at 09:45; Status DC Heparin Sodium/ Sodium Chloride 500 ml @ As Directed STK-MED ONCE .ROUTE ; Start 07/17/18 at 09:44; Stop 07/17/18 at 09:45; Status DC Midazolam HCl (Versed) 2 mg STK-MED ONCE .ROUTE ; Start 07/17/18 at 10:47; Stop 07/17/18 at 10:48; Status DC Fentanyl Citrate (Fentanyl 2ml Vial) 100 mcg STK-MED ONCE .ROUTE ; Start at 10:47; Stop 07/17/18 at 10:48; Status DC Iohexol (Omnipaque 240 Mg/ml) 100 ml STK-MED ONCE .ROUTE ; Start 07/17/18 at 10: 51; Stop 07/17/18 at 10:52; Status DC Heparin Sodium/ Sodium Chloride (HEPARIN for ARTERIAL LINE FLUSH) 1,000 unit 1X ONCE IART Last administered on 07/17/18at 11:45; Start 07/17/18 at 11:45; Stop 07/17/18 at 11:46; Status DC Lidocaine/Sodium Bicarbonate (Buffered Lidocaine 1%) 3 ml 1X ONCE IJ Last administered on 07/17/18at 11:58; Start 07/17/18 at 11:45; Stop 07/17/18 at 11:46 ; Status DC Midazolam HCl (Versed) 2 mg 1X ONCE IV Last administered on 07/17/18at 11:59; Start 07/17/18 at 11:45; Stop 07/17/18 at 11:46; Status DC Fentanyl Citrate (Fentanyl 2ml Vial) 100 mcg 1X ONCE IV Last administered on at 11:59; Start 07/17/18 at 11:45; Stop 07/17/18 at 11:46; Status DC Iohexol (Omnipaque 240 Mg/ml) 100 ml 1X ONCE INT ART Last administered on 07/17at 11:58; Start 07/17/18 at 11:45; Stop 07/17/18 at 11:46; Status DC Vancomycin HCl 250 ml @ 250 mls/hr 1X PREOP PRN IV PRIOR TO PROCEDURE Last administered on 07/18/18 09:30; Start 07/18/18 at 06:00; Stop 07/18/18 at 18:00 Ondansetron HCl (Zofran) 4 mg PRN Q6HRS PRN IV NAUSEA/VOMITING; Start 07/18/18 at 06:45; Stop 07/19/18 at 06:44 Fentanyl Citrate (Fentanyl 2ml Vial) 25 mcg PRN Q5MIN PRN IV MILD PAIN Last administered on 07/18/18 13:31; Start 07/18/18 at 06:45; Stop 07/19/18 at 06:44 Fentanyl Citrate (Fentanyl 2ml Vial) 50 mcg PRN Q5MIN PRN IV MODERATE TO SEVERE PAIN; Start 07/18/18 at 06:45; Stop 07/19/18 at 06:44 Ringer's Solution 1,000 ml @ 30 mls/hr Q24H IV Last administered on 07/18/18 09:39; Start 07/18/18 at 06:31; Stop 07/18/18 at 18:30 Lidocaine HCl (Xylocaine-Mpf 1% 2ml Vial) 2 ml PRN 1X PRN ID PRIOR TO IV START Last administered on 07/18/18at 09:40; Start 07/18/18 at 06:45; Stop 07/19/18 at 06:44 Prochlorperazine Edisylate (Compazine) 5 mg PACU PRN PRN IV NAUSEA, MRX1; Start 07/18/18 at 06:45; Stop 07/19/18 at 06:44 Heparin Sodium (Porcine) 5000 unit/Sodium Chloride 505 ml @ 505 mls/hr 1X ONCE IRR Last administered on 07/18/18at 11:05; Start 07/18/18 at 07:25; Stop at 08:24; Status DC Ropivacaine (Naropin 0.5%) 20 ml STK-MED ONCE .ROUTE ; Start 07/18/18 at 08:54; Stop 07/18/18 at 08:55; Status DC Nicardipine HCl (Cardene) 25 mg STK-MED ONCE IV ; Start 07/18/18 at 09:16; Stop 07/18/18 at 09:17; Status DC Midazolam HCl (Versed) 2 mg STK-MED ONCE .ROUTE ; Start 07/18/18 at 09:17; Stop 07/18/18 at 09:18; Status DC Phenylephrine HCl (Rito-Synephrine Inj) 10 mg STK-MED ONCE .ROUTE ; Start at 09:17; Stop 07/18/18 at 09:18; Status DC Albuterol/ Ipratropium (Duoneb) 3 ml STK-MED ONCE .ROUTE ; Start 07/18/18 at 09: 31; Stop 07/18/18 at 09:32; Status DC Albuterol/ Ipratropium (Duoneb) 3 ml 1X ONCE NEB Last administered on at 09:38; Start 07/18/18 at 09:45; Stop 07/18/18 at 09:46; Status DC Bupivacaine HCl/ Epinephrine Bitart (Sensorcaine-Epi 0.25%-1:728455 Mpf) 30 ml STK-MED ONCE .ROUTE Last administered on 07/18/18at 10:32; Start 07/18/18 at 08: 37; Stop 07/18/18 at 09:37; Status DC Dexamethasone Sodium Phosphate (Decadron) 20 mg STK-MED ONCE .ROUTE ; Start at 09:44; Stop 07/18/18 at 09:45; Status DC Ondansetron HCl (Zofran) 4 mg STK-MED ONCE .ROUTE ; Start 07/18/18 at 09:44; Stop 07/18/18 at 09:45; Status DC Propofol 20 ml @ As Directed STK-MED ONCE IV ; Start 07/18/18 at 09:44; Stop at 09:45; Status DC Lidocaine HCl (Lidocaine Pf 2% Vial) 5 ml STK-MED ONCE .ROUTE ; Start 07/18/18 at 09:44; Stop 07/18/18 at 09:45; Status DC Rocuronium [place] (Zemuron) 50 mg STK-MED ONCE .ROUTE ; Start 07/18/18 at 09:44 ; Stop 07/18/18 at 09:45; Status DC Nitroglycerin/ Dextrose 0 ml @ As Directed STK-MED ONCE IV ; Start 07/18/18 at 09:52; Stop 07/18/18 at 09:53; Status DC Glycopyrrolate (Robinul) 1 mg STK-MED ONCE .ROUTE ; Start 07/18/18 at 10:24; Stop 07/18/18 at 10:25; Status DC Heparin Sodium (Porcine) (Heparin Sodium) 10,000 unit STK-MED ONCE .ROUTE ; Start 07/18/18 at 10:58; Stop 07/18/18 at 10:59; Status DC Sodium Chloride (SODIUM CHLORIDE 20ml) 20 ml STK-MED ONCE IJ ; Start 07/18/18 at 10:58; Stop 07/18/18 at 10:59; Status DC Neostigmine Methylsulfate (Bloxiverz) 10 mg STK-MED ONCE .ROUTE ; Start at 11:17; Stop 07/18/18 at 11:18; Status DC Cellulose (Surgicel Hemostat 4x8) 1 each STK-MED ONCE .ROUTE Last administered on 07/18/18at 11:42; Start 07/18/18 at 10:41; Stop 07/18/18 at 11:41; Status DC Flumazenil (Romazicon) 0.5 mg STK-MED ONCE IV ; Start 07/18/18 at 12:16; Stop at 12:17; Status DC Sevoflurane (Ultane) 90 ml STK-MED ONCE IH ; Start 07/18/18 at 12:22; Stop 07/18 at 12:23; Status DC Protamine Sulfate (Protamine) 50 mg STK-MED ONCE IV ; Start 07/18/18 at 12:22; Stop 07/18/18 at 12:23; Status DC Sodium Chloride (Normal Saline Flush) 3 ml QSHIFT PRN IV AFTER MEDS AND BLOOD DRAWS; Start 07/18/18 at 12:30 Sodium Chloride 1,000 ml @ 100 mls/hr Q10H IV ; Start 07/18/18 at 12:24 Hydromorphone HCl (Dilaudid) 0.2 mg PRN Q1HR PRN IV PAIN; Start 07/18/18 at 12: 30; Status UNV Acetaminophen/ Hydrocodone Bitart (Lortab 5/325) 1 tab PRN Q4HRS PRN PO MILD PAIN; Start 07/18/18 at 12:30; Status UNV Acetaminophen (Tylenol) 650 mg Q8HRS PO ; Start 07/18/18 at 14:00 Ondansetron HCl (Zofran) 4 mg PRN Q6HRS PRN IV NAUESA, 1ST CHOICE; Start at 12:30 Lidocaine HCl (Lidocaine Pf 2% Vial) 5 ml STK-MED ONCE .ROUTE ; Start 07/18/18 at 12:34; Stop 07/18/18 at 12:35; Status DC Fentanyl Citrate (Fentanyl 2ml Vial) 100 mcg STK-MED ONCE .ROUTE ; Start at 13:13; Stop 07/18/18 at 13:14; Status DC Active Scripts Active Reported Alprazolam 0.5 Mg Tablet 0.5 Mg PO PRN DAILY PRN Anoro Ellipta 62.5-25 Mcg Inh (Umeclidinium Brm/Vilanterol Tr) 1 Each Disk.w.dev 1 Each IH DAILY Triamcinolone Acetonide 0.1% Oint (Triamcinolone Acetonide) 15 Gm Oint...g. 1 Mayank TP PRN BID MIX WITH EUCERIN DIRECTED BY PHYSICIAN Synthroid (Levothyroxine Sodium) 75 Mcg Tablet 1 Tab PO DAILY B-6 (Pyridoxine HCl (Vitamin B6)) 200 Mg Tablet.er 200 Mg PO DAILY Proair Hfa Inhaler (Albuterol Sulfate) 8.5 Gm Hfa.aer.ad 2 Puff INH PRN Q6HRS PRN Potassium Chloride 20 Meq Tablet.er 99 Mg PO DAILY Protonix (Pantoprazole Sodium) 20 Mg Tablet.dr 40 Mg PO DAILY Fish Oil 1,000 mg Softgel (Blanket-3/Dha/Epa/Fish Oil) 1,000 Mg Capsule 1,000 Mg PO DAILY NITROGLYCERIN SubLingual (Nitroglycerin) 0.4 Mg Tab.subl 0.4 Mg SL PRN Q5MIN PRN Multivitamins (Multivitamin) 1 Each Tablet 1 Tab PO DAILY Metoprolol Succinate ( Xl ) (Metoprolol Succinate) 25 Mg Tab.er.24h 25 Mg PO DAILY Namenda (Memantine Hcl) 10 Mg Tablet 10 Mg PO DAILY Lisinopril 10 Mg Tablet 10 Mg PO DAILY Isosorbide Mononitrate Er (Isosorbide Mononitrate) 30 Mg Tab.er.24h 30 Mg PO DAILY Guaifenesin 400 Mg Tablet 400 Mg PO PRN BID Lasix (Furosemide) 20 Mg Tablet 10 Mg PO DAILY Eliquis (Apixaban) 5 Mg Tablet 5 Mg PO BID Cardizem Cd (Diltiazem Hcl) 180 Mg Cap.er.24h 120 Mg PO DAILY Coenzyme Q10 (Ubidecarenone) 10 Mg Capsule 10 Mg PO DAILY Vitamin D (Cholecalciferol (Vitamin D3)) 2,000 Unit Capsule 1 Cap PO DAILY Calcium Carbonate 600 Mg Tablet 1,200 Mg PO TID Lipitor (Atorvastatin Calcium) 40 Mg Tablet 1 Tab PO QHS Aspirin 81 Mg Tab.chew 1 Tab PO DAILY Xanax (Alprazolam) 0.5 Mg Tablet 0.75 Mg PO PRN DAILY PRN Fosamax (Alendronate Sodium) 70 Mg Tablet 1 Tab PO WEEKLY Proair Hfa Inhaler (Albuterol Sulfate) 8.5 Gm Hfa.aer.ad 1 Puff INH PRN Q6HRS PRN Vitals/I & O Vital Sign - Last 24 Hours 07/17/18 07/17/18 07/17/18 07/17/18 14:45 15:00 15:00 15:30 Temp 98.5 98.5 Pulse 62 62 64 69 B/P (MAP) 159/69 (99) 143/64 (90) 140/86 (104) 173/81 (111) Pulse Ox 97 O2 Delivery Nasal Cannula O2 Flow Rate 2.0 07/17/18 07/17/18 07/17/18 07/17/18 15:35 16:45 19:28 19:54 Temp 98.4 98.4 Pulse 67 69 Resp 18 B/P (MAP) 140/86 (104) 144/82 (102) Pulse Ox 94 97 96 O2 Delivery Room Air Nasal Cannula Nasal Cannula O2 Flow Rate 2.0 2.0 07/17/18 07/17/18 07/18/18 07/18/18 20:24 22:38 02:31 02:42 Temp 98.5 98.0 98.5 98.0 Pulse 68 67 Resp 18 22 B/P (MAP) 107/49 (68) 153/76 (101) Pulse Ox 98 97 96 O2 Delivery Nasal Cannula Nasal Cannula Nasal Cannula Nasal Cannula O2 Flow Rate 2.0 2.0 2.0 2.0 07/18/18 07/18/18 07/18/18 07/18/18 06:49 07:17 08:00 08:59 Temp 97.9 97.9 Pulse 68 68 Resp 21 B/P (MAP) 158/64 (95) 158/64 Pulse Ox 98 96 O2 Delivery Nasal Cannula Nasal Cannula Nasal Cannula O2 Flow Rate 2.0 2.0 2.0 07/18/18 07/18/18 07/18/18 07/18/18 08:59 08:59 09:29 12:25 Temp 97.9 99.1 97.9 99.1 Pulse 68 68 60 78 Resp 20 28 B/P (MAP) 158/64 158/64 145/60 134/59 Pulse Ox 100 97 O2 Delivery Nasal Cannula Simple Mask O2 Flow Rate 2.0 6 07/18/18 07/18/18 07/18/18 07/18/18 12:40 12:40 12:55 13:10 Temp 99.1 99.1 99.1 99.1 99.1 99.1 Pulse 76 75 72 Resp 26 24 25 B/P (MAP) 125/57 125/57 114/50 Pulse Ox 97 92 92 O2 Delivery Simple Mask Mask Nasal Cannula Nasal Cannula O2 Flow Rate 8 6 2 2 07/18/18 07/18/18 07/18/18 07/18/18 13:18 13:25 13:31 13:40 Temp 99.1 99.1 99.1 99.1 Pulse 72 70 Resp 24 24 24 18 B/P (MAP) 111/50 104/48 Pulse Ox 92 94 95 95 O2 Delivery Nasal Cannula Nasal Cannula Nasal Cannula Nasal Cannula O2 Flow Rate 2.0 4 4.0 4.0 07/18/18 07/18/18 13:55 14:10 Temp 99.4 99.4 99.4 99.4 Pulse 65 64 Resp 18 20 B/P (MAP) 96/47 102/44 Pulse Ox 95 96 O2 Delivery Nasal Cannula Nasal Cannula O2 Flow Rate 4.0 4.0 Intake and Output 07/17/18 07/17/18 07/18/18 15:00 23:00 07:00 Intake Total 320 ml 0 ml Balance 320 ml 0 ml DANY NEGRON MD Jul 18, 2018 14:41
--- NOTE | 2018-07-18 15:18 | PDOC ---
Provider Note Provider Note PT NOT SEEN. WAS IN OR AYESHA BURT MD Jul 18, 2018 15:18
--- NOTE | 2018-07-18 15:57 | NUR ---
SS following up with discharge planning. Pt currently requiring oxygen. Having procedure today. Pt continuing to decline services in the home.
--- NOTE | 2018-07-18 16:20 | PDOC ---
PROGRESS NOTES Assessment Assessment Neurology Progress Note 07-17-18 Chronic dementia, most likely a frontotemporal type given the language difficulties. Elevated TSH Carotid artery high grade stenosis, bilaterally. Right eye vision loss x 3 months. Pulmonary hypertension and pulmonic valve regurgitation. COPD. Pulmonary nodules. Former smoker x 53 years. No evidence of acute CVA this time. RECOMMENDATIONS/PLAN: On Synthroid dose Cardiac and Vascular consultations appreciated She has been on Eliquis and aspirin. Carotid A angiogram per Vascular Surgery. Patient stated on 07/14/18 wanted to protect her left eye by surgery since already loss vision in right eye. PAST MEDICAL AND SURGICAL HISTORY: COPD and hernia repair, dementia. ALLERGIES: NKDA. FAMILY HISTORY: Coronary artery disease. SOCIAL HISTORY: She stated she lived at home alone for about 23 years. She smoked 1 pack a day from age 14 to 67. She quit smoking 6 years ago. No drinking or drugs. MEDICATIONS: See MAR. MEDICATIONS: Refer to MAR REVIEW OF SYSTEMS: Constitutional: No malnutrition, weight loss, cachexia. Head: No traumatic brain or head injury. Skin: No edema, or rash. Ear: No infection. Eyes: Right eye vision loss. Nose: No bleeding or purulent discharges. Hearing: Hearing loss. Neck: No injury. Breast: No history of cancer, masses, or discharges. Cardiac: HTN. CAD. Pulmonary: COPD. GI: No GI Ulcer, GI bleeding Urinary/genital: UTI. Endocrine: No cousin face, craniofacial dysmorphism, polydactyly. Skeletomuscular: No muscular atrophy, deformity. Neurological: see HP. Psychiatric: Denies drug use/abuse. Otherwise, not [id number] review of systems. PHYSICAL EXAMINATION: General appearance in subacute distress. HEENT: Normocephalic and nontraumatic. Eyes, nose, ears, and throat are unremarkable. Hearing decrease. Neck is supple. No lymphadenopathy. Bruits are heard over the carotid artery. No Crepitus. Cardiovascular: S1, S2, regular rate and rhythm. Pulmonary: Clear to auscultation bilaterally. Abdomen: Bowel sounds are positive. Abdomen is soft, nontender, and nondistended. Extremities: No rash, lesions, or edema. No restriction of range of motion NEUROLOGICAL EXAMINATION: Awake. Oriented partially to time, place but knew person. PERRL. EOMI. CN: no focal findings. Muscle tone: within normal. Muscle strength: 4+ DTR: 2 Plantar reflex: Neutral response bilaterally Gait: able to walk from bed to chair. Sensory exam: no abnormal findings. No cerebellar signs elicited. F-T-N test fine. Objective Objective Vital Signs Date Time Temp Pulse Resp B/P (MAP) Pulse Ox O2 Delivery O2 Flow Rate FiO2 07/18/18 15:36 96 Nasal Cannula 2.0 07/18/18 15:15 98.0 63 22 106/46 (66) 98.0 Intake and Output 07/18/18 07:00 Intake Total 320 ml Balance 320 ml Intake Oral 320 ml # Voids 2 Vitals Signs Vitals VS - Last 72 Hours, by Label Date Time Temp Pulse Resp B/P (MAP) Pulse Ox O2 Delivery O2 Flow Rate FiO2 07/18/18 15:36 96 Nasal Cannula 2.0 07/18/18 15:15 98.0 63 22 106/46 (66) 97 Nasal Cannula 2.0 98.0 07/18/18 15:12 96 Nasal Cannula 4.0 07/18/18 14:42 20 96 Nasal Cannula 4.0 07/18/18 14:40 99.4 70 20 119/52 97 Nasal Cannula 4.0 99.4 07/18/18 14:25 99.4 70 20 108/48 97 Nasal Cannula 4.0 99.4 07/18/18 14:10 99.4 64 20 102/44 96 Nasal Cannula 4.0 99.4 07/18/18 13:55 99.4 65 18 96/47 95 Nasal Cannula 4.0 99.4 07/18/18 13:40 99.1 70 18 104/48 95 Nasal Cannula 4.0 99.1 07/18/18 13:31 24 95 Nasal Cannula 4.0 07/18/18 13:25 99.1 72 24 111/50 94 Nasal Cannula 4 99.1 07/18/18 13:18 24 92 Nasal Cannula 2.0 07/18/18 13:10 99.1 72 25 114/50 92 Nasal Cannula 2 99.1 07/18/18 12:55 99.1 75 24 125/57 92 Nasal Cannula 2 99.1 07/18/18 12:40 Mask 6 07/18/18 12:40 99.1 76 26 125/57 97 Simple Mask 8 99.1 07/18/18 12:25 99.1 78 28 134/59 97 Simple Mask 6 99.1 07/18/18 09:29 97.9 60 20 145/60 100 Nasal Cannula 2.0 97.9 07/18/18 08:59 68 158/64 07/18/18 08:59 68 158/64 07/18/18 08:59 68 158/64 07/18/18 08:00 Nasal Cannula 2.0 07/18/18 07:17 96 Nasal Cannula 2.0 07/18/18 06:49 97.9 68 21 158/64 (95) 98 Nasal Cannula 2.0 97.9 07/18/18 02:42 96 Nasal Cannula 2.0 07/18/18 02:31 98.0 67 22 153/76 (101) 97 Nasal Cannula 2.0 98.0 07/17/18 22:38 98.5 68 18 107/49 (68) 98 Nasal Cannula 2.0 98.5 07/17/18 20:24 Nasal Cannula 2.0 07/17/18 19:54 96 Nasal Cannula 2.0 07/17/18 19:28 98.4 69 18 144/82 (102) 97 Nasal Cannula 2.0 98.4 07/17/18 16:45 67 140/86 (104) 07/17/18 15:35 94 Room Air 07/17/18 15:30 69 173/81 (111) 07/17/18 15:00 98.5 64 140/86 (104) 97 Nasal Cannula 2.0 98.5 07/17/18 15:00 62 143/64 (90) 07/17/18 14:45 62 159/69 (99) 07/17/18 14:30 66 146/82 (103) 07/17/18 14:00 67 160/75 (103) 07/17/18 13:45 71 159/69 (99) 07/17/18 13:30 72 173/74 (107) 07/17/18 13:15 72 176/79 (111) 07/17/18 13:09 94 Room Air 07/17/18 13:00 71 170/84 (112) 07/17/18 12:45 75 160/77 (104) 07/17/18 12:40 68 178/87 07/17/18 12:40 68 178/87 07/17/18 12:39 68 178/87 07/17/18 12:39 68 178/87 07/17/18 12:30 66 152/70 (97) 07/17/18 12:15 69 187/74 (111) 07/17/18 12:15 94 Room Air 07/17/18 12:00 68 16 100 Nasal Cannula 2.0 07/17/18 11:59 16 100 Nasal Cannula 2.0 07/17/18 08:00 Nasal Cannula 2.0 07/17/18 07:32 97 Nasal Cannula 2.0 07/17/18 07:00 97.4 60 18 122/43 (69) 96 Room Air 97.4 Laboratory Laboratory Laboratory Tests Test 07/18/18 03:00 07/18/18 10:52 White Blood Count 5.8 x10^3/uL (4.0-11.0) Red Blood Count 3.03 x10^6/uL (3.50-5.40) Hemoglobin 9.3 g/dL (12.0-15.5) Hematocrit 28.7 % (36.0-47.0) Mean Corpuscular Volume 95 fL (79-100) Mean Corpuscular Hemoglobin 31 pg (25-35) Mean Corpuscular Hemoglobin Concent 32 g/dL (31-37) Red Cell Distribution Width 14.6 % (11.5-14.5) Platelet Count 249 x10^3/uL (140-400) Neutrophils (%) (Auto) 52 % (31-73) Lymphocytes (%) (Auto) 27 % (24-48) Monocytes (%) (Auto) 9 % (0-9) Eosinophils (%) (Auto) 11 % (0-3) Basophils (%) (Auto) 1 % (0-3) Neutrophils # (Auto) 3.0 x10^3uL (1.8-7.7) Lymphocytes # (Auto) 1.6 x10^3/uL (1.0-4.8) Monocytes # (Auto) 0.5 x10^3/uL (0.0-1.1) Eosinophils # (Auto) 0.6 x10^3/uL (0.0-0.7) Basophils # (Auto) 0.1 x10^3/uL (0.0-0.2) Sodium Level 146 mmol/L (136-145) Potassium Level 4.0 mmol/L (3.5-5.1) Chloride Level 106 mmol/L (98-107) Carbon Dioxide Level 32 mmol/L (21-32) Anion Gap 8 (6-14) Blood Urea Nitrogen 26 mg/dL (7-20) Creatinine 0.8 mg/dL (0.6-1.0) Estimated GFR (Cockcroft-Gault) 70.3 BUN/Creatinine Ratio 33 (6-20) Glucose Level 97 mg/dL (70-99) Calcium Level 8.4 mg/dL (8.5-10.1) Total Bilirubin 0.3 mg/dL (0.2-1.0) Aspartate Amino Transf (AST/SGOT) 27 U/L (15-37) Alanine Aminotransferase (ALT/SGPT) 26 U/L (14-59) Alkaline Phosphatase 60 U/L (46-116) Total Protein 5.7 g/dL (6.4-8.2) Albumin 2.8 g/dL (3.4-5.0) Albumin/Globulin Ratio 1.0 (1.0-1.7) Activated Clotting Time 225 sec (92-181) Medication Medications Current Medications Acetaminophen (Tylenol) 650 mg Q8HRS PO ; Start 07/18/18 at 14:00 Acetaminophen/ Hydrocodone Bitart (Lortab 5/325) 1 tab PRN Q4HRS PRN PO MILD PAIN; Start 07/18/18 at 12:30; Status UNV Albuterol/ Ipratropium (Duoneb) 3 ml 1X ONCE NEB Last administered on at 09:38; Start 07/18/18 at 09:45; Stop 07/18/18 at 09:46; Status DC Albuterol/ Ipratropium (Duoneb) 3 ml STK-MED ONCE .ROUTE ; Start 07/18/18 at 09: 31; Stop 07/18/18 at 09:32; Status DC Bupivacaine HCl/ Epinephrine Bitart (Sensorcaine-Epi 0.25%-1:100971 Mpf) 30 ml STK-MED ONCE .ROUTE Last administered on 07/18/18at 10:32; Start 07/18/18 at 08: 37; Stop 07/18/18 at 09:37; Status DC Cellulose (Surgicel Hemostat 4x8) 1 each STK-MED ONCE .ROUTE Last administered on 07/18/18at 11:42; Start 07/18/18 at 10:41; Stop 07/18/18 at 11:41; Status DC Dexamethasone Sodium Phosphate (Decadron) 20 mg STK-MED ONCE .ROUTE ; Start at 09:44; Stop 07/18/18 at 09:45; Status DC Fentanyl Citrate (Fentanyl 2ml Vial) 25 mcg PRN Q5MIN PRN IV MILD PAIN Last administered on 07/18/18at 14:42; Start 07/18/18 at 06:45; Stop 07/19/18 at 06:44 Fentanyl Citrate (Fentanyl 2ml Vial) 50 mcg PRN Q5MIN PRN IV MODERATE TO SEVERE PAIN; Start 07/18/18 at 06:45; Stop 07/19/18 at 06:44 Fentanyl Citrate (Fentanyl 2ml Vial) 100 mcg STK-MED ONCE .ROUTE ; Start at 13:13; Stop 07/18/18 at 13:14; Status DC Flumazenil (Romazicon) 0.5 mg STK-MED ONCE IV ; Start 07/18/18 at 12:16; Stop at 12:17; Status DC Glycopyrrolate (Robinul) 1 mg STK-MED ONCE .ROUTE ; Start 07/18/18 at 10:24; Stop 07/18/18 at 10:25; Status DC Heparin Sodium (Porcine) (Heparin Sodium) 10,000 unit STK-MED ONCE .ROUTE ; Start 07/18/18 at 10:58; Stop 07/18/18 at 10:59; Status DC Heparin Sodium (Porcine) 5000 unit/Sodium Chloride 505 ml @ 505 mls/hr 1X ONCE IRR Last administered on 07/18/18at 11:05; Start 07/18/18 at 07:25; Stop at 08:24; Status DC Hydromorphone HCl (Dilaudid) 0.2 mg PRN Q1HR PRN IV PAIN; Start 07/18/18 at 12: 30; Status UNV Lidocaine HCl (Lidocaine Pf 2% Vial) 5 ml STK-MED ONCE .ROUTE ; Start 07/18/18 at 09:44; Stop 07/18/18 at 09:45; Status DC Lidocaine HCl (Lidocaine Pf 2% Vial) 5 ml STK-MED ONCE .ROUTE ; Start 07/18/18 at 12:34; Stop 07/18/18 at 12:35; Status DC Lidocaine HCl (Xylocaine-Mpf 1% 2ml Vial) 2 ml PRN 1X PRN ID PRIOR TO IV START Last administered on 07/18/18at 09:40; Start 07/18/18 at 06:45; Stop 07/19/18 at 06:44 Midazolam HCl (Versed) 2 mg STK-MED ONCE .ROUTE ; Start 07/18/18 at 09:17; Stop 07/18/18 at 09:18; Status DC Neostigmine Methylsulfate (Bloxiverz) 10 mg STK-MED ONCE .ROUTE ; Start at 11:17; Stop 07/18/18 at 11:18; Status DC Nicardipine HCl (Cardene) 25 mg STK-MED ONCE IV ; Start 07/18/18 at 09:16; Stop 07/18/18 at 09:17; Status DC Nitroglycerin/ Dextrose 0 ml @ As Directed STK-MED ONCE IV ; Start 07/18/18 at 09:52; Stop 07/18/18 at 09:53; Status DC Ondansetron HCl (Zofran) 4 mg PRN Q6HRS PRN IV NAUSEA/VOMITING; Start 07/18/18 at 06:45; Stop 07/19/18 at 06:44 Ondansetron HCl (Zofran) 4 mg PRN Q6HRS PRN IV NAUESA, 1ST CHOICE; Start at 12:30 Ondansetron HCl (Zofran) 4 mg STK-MED ONCE .ROUTE ; Start 07/18/18 at 09:44; Stop 07/18/18 at 09:45; Status DC Phenylephrine HCl (Rito-Synephrine Inj) 10 mg STK-MED ONCE .ROUTE ; Start at 09:17; Stop 07/18/18 at 09:18; Status DC Prochlorperazine Edisylate (Compazine) 5 mg PACU PRN PRN IV NAUSEA, MRX1; Start 07/18/18 at 06:45; Stop 07/19/18 at 06:44 Propofol 20 ml @ As Directed STK-MED ONCE IV ; Start 07/18/18 at 09:44; Stop at 09:45; Status DC Protamine Sulfate (Protamine) 50 mg STK-MED ONCE IV ; Start 07/18/18 at 12:22; Stop 07/18/18 at 12:23; Status DC Ringer's Solution 1,000 ml @ 30 mls/hr Q24H IV Last administered on 07/18/18at 09:39; Start 07/18/18 at 06:31; Stop 07/18/18 at 18:30 Rocuronium Heiskell (Zemuron) 50 mg STK-MED ONCE .ROUTE ; Start 07/18/18 at 09:44 ; Stop 07/18/18 at 09:45; Status DC Ropivacaine (Naropin 0.5%) 20 ml STK-MED ONCE .ROUTE ; Start 07/18/18 at 08:54; Stop 07/18/18 at 08:55; Status DC Sevoflurane (Ultane) 90 ml STK-MED ONCE IH ; Start 07/18/18 at 12:22; Stop 07/18 at 12:23; Status DC Sodium Chloride 1,000 ml @ 100 mls/hr Q10H IV ; Start 07/18/18 at 12:24 Sodium Chloride (Normal Saline Flush) 3 ml QSHIFT PRN IV AFTER MEDS AND BLOOD DRAWS; Start 07/18/18 at 12:30 Sodium Chloride (SODIUM CHLORIDE 20ml) 20 ml STK-MED ONCE IJ ; Start 07/18/18 at 10:58; Stop 07/18/18 at 10:59; Status DC Vancomycin HCl 250 ml @ 250 mls/hr 1X PREOP PRN IV PRIOR TO PROCEDURE Last administered on 07/18/18at 09:30; Start 07/18/18 at 06:00; Stop 07/18/18 at 18:00 Comment Review of Relevant I have reviewed the following items vidal (where applicable) has been applied. JOHN JJ MD Jul 18, 2018 16:20
--- NOTE | 2018-07-18 16:23 | PDOC ---
PROGRESS NOTES Assessment Assessment Chronic dementia? Mild type, most likely a frontotemporal type given the language difficulties. Elevated TSH Carotid artery high grade stenosis, bilaterally. Right eye vision loss x 3 months. Pulmonary hypertension and pulmonic valve regurgitation. COPD. Pulmonary nodules. Former smoker x 53 years. No evidence of acute CVA this time. RECOMMENDATIONS/PLAN: Received right carotid A endarterectomy on 07/18/18. On Synthroid dose She was on Eliquis and aspirin already Consulted Vascular Surgery. Patient stated on 07/14/18 wanted to protect her left eye by surgery since already loss vision in right eye. PAST MEDICAL AND SURGICAL HISTORY: COPD and hernia repair, dementia. ALLERGIES: NKDA. FAMILY HISTORY: Coronary artery disease. SOCIAL HISTORY: She stated she lived at home alone for about 23 years. She smoked 1 pack a day from age 14 to 67. She quit smoking 6 years ago. No drinking or drugs. MEDICATIONS: See MAR. MEDICATIONS: Refer to MAR REVIEW OF SYSTEMS: Constitutional: No malnutrition, weight loss, cachexia. Head: No traumatic brain or head injury. Skin: No edema, or rash. Ear: No infection. Eyes: Right eye vision loss. Nose: No bleeding or purulent discharges. Hearing: Hearing loss. Neck: No injury. Breast: No history of cancer, masses, or discharges. Cardiac: HTN. CAD. Pulmonary: COPD. GI: No GI Ulcer, GI bleeding Urinary/genital: UTI. Endocrine: No cousin face, craniofacial dysmorphism, polydactyly. Skeletomuscular: No muscular atrophy, deformity. Neurological: see HP. Psychiatric: Denies drug use/abuse. Otherwise, not [id number] review of systems. PHYSICAL EXAMINATION: General appearance in subacute distress. HEENT: Normocephalic and nontraumatic. Eyes, nose, ears, and throat are unremarkable. Hearing decrease. Neck is supple. No lymphadenopathy. Bruits are heard over the carotid artery. No Crepitus. Cardiovascular: S1, S2, regular rate and rhythm. Pulmonary: Clear to auscultation bilaterally. Abdomen: Bowel sounds are positive. Abdomen is soft, nontender, and nondistended. Extremities: No rash, lesions, or edema. No restriction of range of motion NEUROLOGICAL EXAMINATION: Awake. Able to talk. Oriented partially to time, place but knew person. PERRL. EOMI. CN: no focal findings. Muscle tone: within normal. Muscle strength: 4+ DTR: 2 Plantar reflex: Neutral response bilaterally Gait: Not examined. Sensory exam: no abnormal findings. No cerebellar signs elicited. F-T-N test fine. Objective Objective Vital Signs Date Time Temp Pulse Resp B/P (MAP) Pulse Ox O2 Delivery O2 Flow Rate FiO2 07/18/18 15:36 96 Nasal Cannula 2.0 07/18/18 15:15 98.0 63 22 106/46 (66) 98.0 Intake and Output 07/18/18 07:00 Intake Total 320 ml Balance 320 ml Intake Oral 320 ml # Voids 2 Vitals Signs Vitals VS - Last 72 Hours, by Label Date Time Temp Pulse Resp B/P (MAP) Pulse Ox O2 Delivery O2 Flow Rate FiO2 07/18/18 15:36 96 Nasal Cannula 2.0 07/18/18 15:15 98.0 63 22 106/46 (66) 97 Nasal Cannula 2.0 98.0 07/18/18 15:12 96 Nasal Cannula 4.0 07/18/18 14:42 20 96 Nasal Cannula 4.0 07/18/18 14:40 99.4 70 20 119/52 97 Nasal Cannula 4.0 99.4 07/18/18 14:25 99.4 70 20 108/48 97 Nasal Cannula 4.0 99.4 07/18/18 14:10 99.4 64 20 102/44 96 Nasal Cannula 4.0 99.4 07/18/18 13:55 99.4 65 18 96/47 95 Nasal Cannula 4.0 99.4 07/18/18 13:40 99.1 70 18 104/48 95 Nasal Cannula 4.0 99.1 07/18/18 13:31 24 95 Nasal Cannula 4.0 07/18/18 13:25 99.1 72 24 111/50 94 Nasal Cannula 4 99.1 07/18/18 13:18 24 92 Nasal Cannula 2.0 07/18/18 13:10 99.1 72 25 114/50 92 Nasal Cannula 2 99.1 07/18/18 12:55 99.1 75 24 125/57 92 Nasal Cannula 2 99.1 07/18/18 12:40 Mask 6 07/18/18 12:40 99.1 76 26 125/57 97 Simple Mask 8 99.1 07/18/18 12:25 99.1 78 28 134/59 97 Simple Mask 6 99.1 07/18/18 09:29 97.9 60 20 145/60 100 Nasal Cannula 2.0 97.9 07/18/18 08:59 68 158/64 07/18/18 08:59 68 158/64 07/18/18 08:59 68 158/64 07/18/18 08:00 Nasal Cannula 2.0 07/18/18 07:17 96 Nasal Cannula 2.0 07/18/18 06:49 97.9 68 21 158/64 (95) 98 Nasal Cannula 2.0 97.9 07/18/18 02:42 96 Nasal Cannula 2.0 07/18/18 02:31 98.0 67 22 153/76 (101) 97 Nasal Cannula 2.0 98.0 07/17/18 22:38 98.5 68 18 107/49 (68) 98 Nasal Cannula 2.0 98.5 07/17/18 20:24 Nasal Cannula 2.0 07/17/18 19:54 96 Nasal Cannula 2.0 07/17/18 19:28 98.4 69 18 144/82 (102) 97 Nasal Cannula 2.0 98.4 07/17/18 16:45 67 140/86 (104) 07/17/18 15:35 94 Room Air 07/17/18 15:30 69 173/81 (111) 07/17/18 15:00 98.5 64 140/86 (104) 97 Nasal Cannula 2.0 98.5 07/17/18 15:00 62 143/64 (90) 07/17/18 14:45 62 159/69 (99) 07/17/18 14:30 66 146/82 (103) 07/17/18 14:00 67 160/75 (103) 07/17/18 13:45 71 159/69 (99) 07/17/18 13:30 72 173/74 (107) 07/17/18 13:15 72 176/79 (111) 07/17/18 13:09 94 Room Air 07/17/18 13:00 71 170/84 (112) 07/17/18 12:45 75 160/77 (104) 07/17/18 12:40 68 178/87 07/17/18 12:40 68 178/87 3/14/19 12:39 68 178/87 07/17/18 12:39 68 178/87 07/17/18 12:30 66 152/70 (97) 07/17/18 12:15 69 187/74 (111) 07/17/18 12:15 94 Room Air 07/17/18 12:00 68 16 100 Nasal Cannula 2.0 07/17/18 11:59 16 100 Nasal Cannula 2.0 07/17/18 08:00 Nasal Cannula 2.0 07/17/18 07:32 97 Nasal Cannula 2.0 07/17/18 07:00 97.4 60 18 122/43 (69) 96 Room Air 97.4 Laboratory Laboratory Laboratory Tests Test 07/18/18 03:00 07/18/18 10:52 White Blood Count 5.8 x10^3/uL (4.0-11.0) Red Blood Count 3.03 x10^6/uL (3.50-5.40) Hemoglobin 9.3 g/dL (12.0-15.5) Hematocrit 28.7 % (36.0-47.0) Mean Corpuscular Volume 95 fL (79-100) Mean Corpuscular Hemoglobin 31 pg (25-35) Mean Corpuscular Hemoglobin Concent 32 g/dL (31-37) Red Cell Distribution Width 14.6 % (11.5-14.5) Platelet Count 249 x10^3/uL (140-400) Neutrophils (%) (Auto) 52 % (31-73) Lymphocytes (%) (Auto) 27 % (24-48) Monocytes (%) (Auto) 9 % (0-9) Eosinophils (%) (Auto) 11 % (0-3) Basophils (%) (Auto) 1 % (0-3) Neutrophils # (Auto) 3.0 x10^3uL (1.8-7.7) Lymphocytes # (Auto) 1.6 x10^3/uL (1.0-4.8) Monocytes # (Auto) 0.5 x10^3/uL (0.0-1.1) Eosinophils # (Auto) 0.6 x10^3/uL (0.0-0.7) Basophils # (Auto) 0.1 x10^3/uL (0.0-0.2) Sodium Level 146 mmol/L (136-145) Potassium Level 4.0 mmol/L (3.5-5.1) Chloride Level 106 mmol/L (98-107) Carbon Dioxide Level 32 mmol/L (21-32) Anion Gap 8 (6-14) Blood Urea Nitrogen 26 mg/dL (7-20) Creatinine 0.8 mg/dL (0.6-1.0) Estimated GFR (Cockcroft-Gault) 70.3 BUN/Creatinine Ratio 33 (6-20) Glucose Level 97 mg/dL (70-99) Calcium Level 8.4 mg/dL (8.5-10.1) Total Bilirubin 0.3 mg/dL (0.2-1.0) Aspartate Amino Transf (AST/SGOT) 27 U/L (15-37) Alanine Aminotransferase (ALT/SGPT) 26 U/L (14-59) Alkaline Phosphatase 60 U/L (46-116) Total Protein 5.7 g/dL (6.4-8.2) Albumin 2.8 g/dL (3.4-5.0) Albumin/Globulin Ratio 1.0 (1.0-1.7) Activated Clotting Time 225 sec (92-181) Medication Medications Current Medications Acetaminophen (Tylenol) 650 mg Q8HRS PO ; Start 07/18/18 at 14:00 Acetaminophen/ Hydrocodone Bitart (Lortab 5/325) 1 tab PRN Q4HRS PRN PO MILD PAIN; Start 07/18/18 at 12:30; Status UNV Albuterol/ Ipratropium (Duoneb) 3 ml 1X ONCE NEB Last administered on at 09:38; Start 07/18/18 at 09:45; Stop 07/18/18 at 09:46; Status DC Albuterol/ Ipratropium (Duoneb) 3 ml STK-MED ONCE .ROUTE ; Start 07/18/18 at 09: 31; Stop 07/18/18 at 09:32; Status DC Bupivacaine HCl/ Epinephrine Bitart (Sensorcaine-Epi 0.25%-1:536698 Mpf) 30 ml STK-MED ONCE .ROUTE Last administered on 07/18/18at 10:32; Start 07/18/18 at 08: 37; Stop 07/18/18 at 09:37; Status DC Cellulose (Surgicel Hemostat 4x8) 1 each STK-MED ONCE .ROUTE Last administered on 07/18/18at 11:42; Start 07/18/18 at 10:41; Stop 07/18/18 at 11:41; Status DC Dexamethasone Sodium Phosphate (Decadron) 20 mg STK-MED ONCE .ROUTE ; Start at 09:44; Stop 07/18/18 at 09:45; Status DC Fentanyl Citrate (Fentanyl 2ml Vial) 25 mcg PRN Q5MIN PRN IV MILD PAIN Last administered on 07/18/18at 14:42; Start 07/18/18 at 06:45; Stop 07/19/18 at 06:44 Fentanyl Citrate (Fentanyl 2ml Vial) 50 mcg PRN Q5MIN PRN IV MODERATE TO SEVERE PAIN; Start 07/18/18 at 06:45; Stop 07/19/18 at 06:44 Fentanyl Citrate (Fentanyl 2ml Vial) 100 mcg STK-MED ONCE .ROUTE ; Start at 13:13; Stop 07/18/18 at 13:14; Status DC Flumazenil (Romazicon) 0.5 mg STK-MED ONCE IV ; Start 07/18/18 at 12:16; Stop at 12:17; Status DC Glycopyrrolate (Robinul) 1 mg STK-MED ONCE .ROUTE ; Start 07/18/18 at 10:24; Stop 07/18/18 at 10:25; Status DC Heparin Sodium (Porcine) (Heparin Sodium) 10,000 unit STK-MED ONCE .ROUTE ; Start 07/18/18 at 10:58; Stop 07/18/18 at 10:59; Status DC Heparin Sodium (Porcine) 5000 unit/Sodium Chloride 505 ml @ 505 mls/hr 1X ONCE IRR Last administered on 07/18/18at 11:05; Start 07/18/18 at 07:25; Stop at 08:24; Status DC Hydromorphone HCl (Dilaudid) 0.2 mg PRN Q1HR PRN IV PAIN; Start 07/18/18 at 12: 30; Status UNV Lidocaine HCl (Lidocaine Pf 2% Vial) 5 ml STK-MED ONCE .ROUTE ; Start 07/18/18 at 09:44; Stop 07/18/18 at 09:45; Status DC Lidocaine HCl (Lidocaine Pf 2% Vial) 5 ml STK-MED ONCE .ROUTE ; Start 07/18/18 at 12:34; Stop 07/18/18 at 12:35; Status DC Lidocaine HCl (Xylocaine-Mpf 1% 2ml Vial) 2 ml PRN 1X PRN ID PRIOR TO IV START Last administered on 07/18/18at 09:40; Start 07/18/18 at 06:45; Stop 07/19/18 at 06:44 Midazolam HCl (Versed) 2 mg STK-MED ONCE .ROUTE ; Start 07/18/18 at 09:17; Stop 07/18/18 at 09:18; Status DC Neostigmine Methylsulfate (Bloxiverz) 10 mg STK-MED ONCE .ROUTE ; Start at 11:17; Stop 07/18/18 at 11:18; Status DC Nicardipine HCl (Cardene) 25 mg STK-MED ONCE IV ; Start 07/18/18 at 09:16; Stop 07/18/18 at 09:17; Status DC Nitroglycerin/ Dextrose 0 ml @ As Directed STK-MED ONCE IV ; Start 07/18/18 at 09:52; Stop 07/18/18 at 09:53; Status DC Ondansetron HCl (Zofran) 4 mg PRN Q6HRS PRN IV NAUSEA/VOMITING; Start 07/18/18 at 06:45; Stop 07/19/18 at 06:44 Ondansetron HCl (Zofran) 4 mg PRN Q6HRS PRN IV NAUESA, 1ST CHOICE; Start at 12:30 Ondansetron HCl (Zofran) 4 mg STK-MED ONCE .ROUTE ; Start 07/18/18 at 09:44; Stop 07/18/18 at 09:45; Status DC Phenylephrine HCl (Rito-Synephrine Inj) 10 mg STK-MED ONCE .ROUTE ; Start at 09:17; Stop 07/18/18 at 09:18; Status DC Prochlorperazine Edisylate (Compazine) 5 mg PACU PRN PRN IV NAUSEA, MRX1; Start 07/18/18 at 06:45; Stop 07/19/18 at 06:44 Propofol 20 ml @ As Directed STK-MED ONCE IV ; Start 07/18/18 at 09:44; Stop at 09:45; Status DC Protamine Sulfate (Protamine) 50 mg STK-MED ONCE IV ; Start 07/18/18 at 12:22; Stop 07/18/18 at 12:23; Status DC Ringer's Solution 1,000 ml @ 30 mls/hr Q24H IV Last administered on 07/18/18at 09:39; Start 07/18/18 at 06:31; Stop 07/18/18 at 18:30 Rocuronium [place] (Zemuron) 50 mg STK-MED ONCE .ROUTE ; Start 07/18/18 at 09:44 ; Stop 07/18/18 at 09:45; Status DC Ropivacaine (Naropin 0.5%) 20 ml STK-MED ONCE .ROUTE ; Start 07/18/18 at 08:54; Stop 07/18/18 at 08:55; Status DC Sevoflurane (Ultane) 90 ml STK-MED ONCE IH ; Start 07/18/18 at 12:22; Stop 07/18 at 12:23; Status DC Sodium Chloride 1,000 ml @ 100 mls/hr Q10H IV ; Start 07/18/18 at 12:24 Sodium Chloride (Normal Saline Flush) 3 ml QSHIFT PRN IV AFTER MEDS AND BLOOD DRAWS; Start 07/18/18 at 12:30 Sodium Chloride (SODIUM CHLORIDE 20ml) 20 ml STK-MED ONCE IJ ; Start 07/18/18 at 10:58; Stop 07/18/18 at 10:59; Status DC Vancomycin HCl 250 ml @ 250 mls/hr 1X PREOP PRN IV PRIOR TO PROCEDURE Last administered on 07/18/18at 09:30; Start 07/18/18 at 06:00; Stop 07/18/18 at 18:00 Comment Review of Relevant I have reviewed the following items vidal (where applicable) has been applied. JOHN JJ MD Jul 18, 2018 16:23
[2018-07-18] MEDS ORDERED: IV NORMAL SALINE 1000ML BAG 750 ML IV ONE (19:15)
[2018-07-18] MEDS: ATORVASTATIN CALCIUM 40 MG TABLET. PO SCH (21:23)
[2018-07-18] MEDS: MEMANTINE 10 MG TABLET. PO SCH (21:23)
[2018-07-18] MEDS: PANTOPRAZOLE 40 MG TABLET.DR. PO ONE (23:00)
[2018-07-19] MEDS: ALPRAZolam 0.25 MG TABLET PO PRN ×2 (00:28→21:45)
[2018-07-19 03:05] VITALS: BP 113/53
[2018-07-19] MEDS: MAGNESIUM HYDROXIDE 2,400 MG/30 ML ORAL.SUSP. PO PRN ×2 (04:00→07:45)
[2018-07-19 04:04] LABS: BASO % 0 % (0-3); EOS % 0 % (0-3); HEMATOCRIT 26.4 % (36.0-47.0); HEMOGLOBIN 8.6 g/dL (12.0-15.5); LYMPH % 10 % (24-48); MEAN CORPUSCULAR HEMOGLOBIN 31 pg (25-35); MEAN CORPUSCULAR HGB CONC 33 g/dL (31-37); MEAN CORPUSCULAR VOLUME 94 fL (79-100); MONO # 1.1 x10^3/uL (0.0-1.1); MONO % 11 % (0-9); NEUT % 79 % (31-73); PLATELET COUNT 270 x10^3/uL (140-400); RED BLOOD COUNT 2.79 x10^6/uL (3.50-5.40); RED CELL DISTRIBUTION WIDTH 14.7 % (11.5-14.5); WHITE BLOOD COUNT 10.2 x10^3/uL (4.0-11.0)
[2018-07-19 04:23] LABS: ALBUMIN/GLOBULIN RATIO 1.1 (1.0-1.7); CALCIUM 8.2 mg/dL (8.5-10.1); CREATININE 1.2 mg/dL (0.6-1.0); POTASSIUM 4.1 mmol/L (3.5-5.1); TOTAL BILIRUBIN 0.4 mg/dL (0.2-1.0); TOTAL PROTEIN 5.8 g/dL (6.4-8.2)
--- NOTE | 2018-07-19 06:49 | PDOC ---
PULMONARY PROGRESS NOTES Subjective s/p r cea 07/18, on 02 has cough, no pain Vitals Vital Signs Date Time Temp Pulse Resp B/P (MAP) Pulse Ox O2 Delivery O2 Flow Rate FiO2 07/19/18 03:05 98.1 66 20 113/53 (73) 94 Nasal Cannula 2.0 98.1 General: Alert, No acute distress HEENT: Other (nc at perrl ) Lungs: Clear Cardiovascular: S1, S2 Abdomen: Soft, Non-tender Neuro Exam: Alert Extremities: No Edema Skin: Warm Labs Laboratory Tests Test 07/18/18 03:00 07/18/18 10:52 07/19/18 03:30 White Blood Count 5.8 x10^3/uL (4.0-11.0) 10.2 x10^3/uL (4.0-11.0) Red Blood Count 3.03 x10^6/uL (3.50-5.40) 2.79 x10^6/uL (3.50-5.40) Hemoglobin 9.3 g/dL (12.0-15.5) 8.6 g/dL (12.0-15.5) Hematocrit 28.7 % (36.0-47.0) 26.4 % (36.0-47.0) Mean Corpuscular Volume 95 fL (79-100) 94 fL (79-100) Mean Corpuscular Hemoglobin 31 pg (25-35) 31 pg (25-35) Mean Corpuscular Hemoglobin Concent 32 g/dL (31-37) 33 g/dL (31-37) Red Cell Distribution Width 14.6 % (11.5-14.5) 14.7 % (11.5-14.5) Platelet Count 249 x10^3/uL (140-400) 270 x10^3/uL (140-400) Neutrophils (%) (Auto) 52 % (31-73) 79 % (31-73) Lymphocytes (%) (Auto) 27 % (24-48) 10 % (24-48) Monocytes (%) (Auto) 9 % (0-9) 11 % (0-9) Eosinophils (%) (Auto) 11 % (0-3) 0 % (0-3) Basophils (%) (Auto) 1 % (0-3) 0 % (0-3) Neutrophils # (Auto) 3.0 x10^3uL (1.8-7.7) 8.0 x10^3uL (1.8-7.7) Lymphocytes # (Auto) 1.6 x10^3/uL (1.0-4.8) 1.0 x10^3/uL (1.0-4.8) Monocytes # (Auto) 0.5 x10^3/uL (0.0-1.1) 1.1 x10^3/uL (0.0-1.1) Eosinophils # (Auto) 0.6 x10^3/uL (0.0-0.7) 0.0 x10^3/uL (0.0-0.7) Basophils # (Auto) 0.1 x10^3/uL (0.0-0.2) 0.0 x10^3/uL (0.0-0.2) Sodium Level 146 mmol/L (136-145) 142 mmol/L (136-145) Potassium Level 4.0 mmol/L (3.5-5.1) 4.1 mmol/L (3.5-5.1) Chloride Level 106 mmol/L (98-107) 104 mmol/L (98-107) Carbon Dioxide Level 32 mmol/L (21-32) 26 mmol/L (21-32) Anion Gap 8 (6-14) 12 (6-14) Blood Urea Nitrogen 26 mg/dL (7-20) 31 mg/dL (7-20) Creatinine 0.8 mg/dL (0.6-1.0) 1.2 mg/dL (0.6-1.0) Estimated GFR (Cockcroft-Gault) 70.3 44.0 BUN/Creatinine Ratio 33 (6-20) 26 (6-20) Glucose Level 97 mg/dL (70-99) 157 mg/dL (70-99) Calcium Level 8.4 mg/dL (8.5-10.1) 8.2 mg/dL (8.5-10.1) Total Bilirubin 0.3 mg/dL (0.2-1.0) 0.4 mg/dL (0.2-1.0) Aspartate Amino Transf (AST/SGOT) 27 U/L (15-37) 29 U/L (15-37) Alanine Aminotransferase (ALT/SGPT) 26 U/L (14-59) 30 U/L (14-59) Alkaline Phosphatase 60 U/L (46-116) 63 U/L (46-116) Total Protein 5.7 g/dL (6.4-8.2) 5.8 g/dL (6.4-8.2) Albumin 2.8 g/dL (3.4-5.0) 3.0 g/dL (3.4-5.0) Albumin/Globulin Ratio 1.0 (1.0-1.7) 1.1 (1.0-1.7) Activated Clotting Time 225 sec (92-181) Laboratory Tests Test 07/18/18 10:52 07/19/18 03:30 Activated Clotting Time 225 sec (92-181) White Blood Count 10.2 x10^3/uL (4.0-11.0) Red Blood Count 2.79 x10^6/uL (3.50-5.40) Hemoglobin 8.6 g/dL (12.0-15.5) Hematocrit 26.4 % (36.0-47.0) Mean Corpuscular Volume 94 fL (79-100) Mean Corpuscular Hemoglobin 31 pg (25-35) Mean Corpuscular Hemoglobin Concent 33 g/dL (31-37) Red Cell Distribution Width 14.7 % (11.5-14.5) Platelet Count 270 x10^3/uL (140-400) Neutrophils (%) (Auto) 79 % (31-73) Lymphocytes (%) (Auto) 10 % (24-48) Monocytes (%) (Auto) 11 % (0-9) Eosinophils (%) (Auto) 0 % (0-3) Basophils (%) (Auto) 0 % (0-3) Neutrophils # (Auto) 8.0 x10^3uL (1.8-7.7) Lymphocytes # (Auto) 1.0 x10^3/uL (1.0-4.8) Monocytes # (Auto) 1.1 x10^3/uL (0.0-1.1) Eosinophils # (Auto) 0.0 x10^3/uL (0.0-0.7) Basophils # (Auto) 0.0 x10^3/uL (0.0-0.2) Sodium Level 142 mmol/L (136-145) Potassium Level 4.1 mmol/L (3.5-5.1) Chloride Level 104 mmol/L (98-107) Carbon Dioxide Level 26 mmol/L (21-32) Anion Gap 12 (6-14) Blood Urea Nitrogen 31 mg/dL (7-20) Creatinine 1.2 mg/dL (0.6-1.0) Estimated GFR (Cockcroft-Gault) 44.0 BUN/Creatinine Ratio 26 (6-20) Glucose Level 157 mg/dL (70-99) Calcium Level 8.2 mg/dL (8.5-10.1) Total Bilirubin 0.4 mg/dL (0.2-1.0) Aspartate Amino Transf (AST/SGOT) 29 U/L (15-37) Alanine Aminotransferase (ALT/SGPT) 30 U/L (14-59) Alkaline Phosphatase 63 U/L (46-116) Total Protein 5.8 g/dL (6.4-8.2) Albumin 3.0 g/dL (3.4-5.0) Albumin/Globulin Ratio 1.1 (1.0-1.7) Medications Active Scripts Medications Dose Route/Sig Max Daily Dose Days Date Category Dose Instructions Alprazolam 0.5 Mg Tablet 0.5 Mg PO PRN DAILY PRN 07/14/18 Reported Anoro Ellipta 62.5-25 Mcg Inh (Umeclidinium Brm/Vilanterol Tr) 1 Each Disk.w.dev 1 Each IH DAILY 07/10/18 Reported Triamcinolone Acetonide 0.1% Oint (Triamcinolone Acetonide) 15 Gm Oint...g. 1 [place] TP PRN BID 07/10/18 Reported MIX WITH EUCERIN DIRECTED BY PHYSICIAN Synthroid (Levothyroxine Sodium) 75 Mcg Tablet 1 Tab PO DAILY 07/10/18 Reported B-6 (Pyridoxine HCl (Vitamin B6)) 200 Mg Tablet.er 200 Mg PO DAILY 07/10/18 Reported Proair Hfa Inhaler (Albuterol Sulfate) 8.5 Gm Hfa.aer.ad 2 Puff INH PRN Q6HRS PRN 07/10/18 Reported Potassium Chloride 20 Meq Tablet.er 99 Mg PO DAILY 07/10/18 Reported Protonix (Pantoprazole Sodium) 20 Mg Tablet.dr 40 Mg PO DAILY 07/10/18 Reported Fish Oil 1,000 mg Softgel ([place]-3/Dha/Epa/Fish Oil) 1,000 Mg Capsule 1,000 Mg PO DAILY 07/10/18 Reported NITROGLYCERIN SubLingual (Nitroglycerin) 0.4 Mg Tab.subl 0.4 Mg SL PRN Q5MIN PRN 07/10/18 Reported Multivitamins (Multivitamin) 1 Each Tablet 1 Tab PO DAILY 07/10/18 Reported Metoprolol Succinate ( Xl ) (Metoprolol Succinate) 25 Mg Tab.er.24h 25 Mg PO DAILY 07/10/18 Reported Namenda (Memantine Hcl) 10 Mg Tablet 10 Mg PO DAILY 07/10/18 Reported Lisinopril 10 Mg Tablet 10 Mg PO DAILY 07/10/18 Reported Isosorbide Mononitrate Er (Isosorbide Mononitrate) 30 Mg Tab.er.24h 30 Mg PO DAILY 07/10/18 Reported Guaifenesin 400 Mg Tablet 400 Mg PO PRN BID 07/10/18 Reported Lasix (Furosemide) 20 Mg Tablet 10 Mg PO DAILY 07/10/18 Reported Eliquis (Apixaban) 5 Mg Tablet 5 Mg PO BID 07/10/18 Reported Cardizem Cd (Diltiazem Hcl) 180 Mg Cap.er.24h 120 Mg PO DAILY 07/10/18 Reported Coenzyme Q10 (Ubidecarenone) 10 Mg Capsule 10 Mg PO DAILY 07/10/18 Reported Vitamin D (Cholecalciferol (Vitamin D3)) 2,000 Unit Capsule 1 Cap PO DAILY 07/10/18 Reported Calcium Carbonate 600 Mg Tablet 1,200 Mg PO TID 07/10/18 Reported Lipitor (Atorvastatin Calcium) 40 Mg Tablet 1 Tab PO QHS 07/10/18 Reported Aspirin 81 Mg Tab.chew 1 Tab PO DAILY 07/10/18 Reported Xanax (Alprazolam) 0.5 Mg Tablet 0.75 Mg PO PRN DAILY PRN 07/10/18 Reported Fosamax (Alendronate Sodium) 70 Mg Tablet 1 Tab PO WEEKLY 07/10/18 Reported Proair Hfa Inhaler (Albuterol Sulfate) 8.5 Gm Hfa.aer.ad 1 Puff INH PRN Q6HRS PRN 07/10/18 Reported Impression . 1. Abnormal CT chest with two tiny nodules, 8 mm and 6 mm in the left upper lobe along with parenchymal scarring and less likely nonmalignant. We will need to follow another scan in 4 months due to long history of tobacco use. 2. Oxygen dependent chronic respiratory failure secondary to chronic obstructive pulmonary disease. 3. Secondary pulmonary hypertension. 4. s/p r CEA Plan . 1. 02 titration, BD 2. Repeat CT chest in [address] carr in the office. 3. increase activity Discussed with RN, pt. HUA MURRAY MD Jul 19, 2018 06:49
[2018-07-19 07:25] VITALS: BP 113/49
[2018-07-19] MEDS: ALBUTEROL SULFATE 2.5 MG/3 ML NEBU. NEB SCH ×4 (07:39→20:02)
[2018-07-19] MEDS: PANTOPRAZOLE 40 MG TABLET.DR. PO SCH (07:45)
[2018-07-19] MEDS: LEVOTHYROXINE 100 MCG TABLET PO SCH (07:45)
[2018-07-19] MEDS: PYRIDOXINE 50 MG TABLET. PO SCH (07:46)
[2018-07-19] MEDS: FUROSEMIDE 20 MG TABLET PO SCH (07:46)
[2018-07-19] MEDS: CHOLECALCIFEROL (VITAMIN D3) 1,000 UNIT TABLET PO SCH (07:47)
[2018-07-19] MEDS: CALCIUM CARBONATE 500 MG TABLET PO SCH ×3 (07:47→18:34)
[2018-07-19] MEDS: MULTIVITAMIN with MINERAL TABLET. PO SCH (07:47)
[2018-07-19] MEDS: OMEGA-3 FATTY ACIDS/FISH OIL 1,000 MG CAPSULE. PO SCH (07:47)
[2018-07-19] MEDS: ASPIRIN CHEWABLE 81 MG TABLET. PO SCH (07:48)
[2018-07-19] MEDS: ISOSORBIDE MONONITRATE ER 30 MG TAB.ER.24H PO SCH (07:48)
[2018-07-19] MEDS: METOPROLOL SUCC 24HR ER 25 MG TAB.ER.24H. PO SCH (07:48)
[2018-07-19] MEDS: LISINOPRIL 10 MG TABLET PO SCH (07:49)
[2018-07-19] MEDS: ANORO ELLIPTA INHALATION INH SCH (09:00)
--- NOTE | 2018-07-19 09:15 | PDOC ---
PROGRESS NOTES Chief Complaint Chief Complaint IMPRESSION Speech Difficulty Confusion TO DETAILS MAY BE SEC TO carotid disease, multifactorial Small round lucencies of the calvarium are seen measuring less than 1 cm in size. This may be secondary to senile osteoporosis although could also be seen with multiple myeloma if there is a history of such. CVA? Memory loss- Dementia MOD, MORE CONFUSION ON VISIT 07/19 COPD FH of CAD Former smoker Occlusion or severe 99 percent stenosis of the right internal carotid artery with slow flow. 07/[address] ANGIOGRAM TODAY, PT WANTS TO GO HOME ALONE, HIGH RISK D/C LIVES ALONE WILL CONSULT PAT 07/[address] ANGIOGRAPHY OF NECK AND BRAIN TODAY PLANNED 07/17 SURGERY LATER TODAY, HIGH RIS OF COMPLICATIONS per my chart review 07/19 MORE CONFUSED ABOVE BASELINE, PLAN SNF BED PLACEMENT History of Present Illness History of Present Illness Ms Jimenez is a 73 yo F who was admitted for confusion/difficulty speaking, PMH COPD and former smoker She was seen and examined in her room this morning, NAD less expressive aphasia, completed thoughts , not completely She states that when her anxiety increases, her ability to express her thoughts decreases Discussed her medications, treatments, and her concerns at length Discussed with RN 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 This is nonspecific and could be related to acute or chronic bronchial inflammatory process or chronic aspiration. CTA neck was reviewed with , occlusion vs a string sign -- Dx angiogram / icritical stenosis of the right ICA approx 2 cm distal to bifurcation. CEA Dr Perkins. 07/18 UNDERSTANDS RISK OF CVA OR WITH HIGH RISK SURGERY 07/17 plan serum protein immuno - electrophoresis complex decision making involved, care coordination 48 min > 50% in pt care and record review, pt exam, face to face care Vitals Vitals Vital Signs Date Time Temp Pulse Resp B/P (MAP) Pulse Ox O2 Delivery O2 Flow Rate FiO2 07/19/18 08:00 Room Air 07/19/18 07:50 64 113/49 07/19/18 07:39 99 2.0 07/19/18 07:25 97.3 20 97.3 Physical Exam Physical Exam DELAYED,// INCOMPLETE RESPONSE TO QUESTIONS General: Alert, Oriented X3, Cooperative, mild distress Heart: Regular rate, Normal S1, No murmurs, Other (prominent L sided carotid bruit) Lungs: Clear Abdomen: Normal bowel sounds, Soft, Other (supraumbilical ventral hernia) Extremities: No clubbing, No cyanosis, No edema Skin: No rashes, No breakdown, No significant lesion Labs LABS Laboratory Tests Test 07/18/18 10:52 07/19/18 03:30 Activated Clotting Time 225 sec (92-181) White Blood Count 10.2 x10^3/uL (4.0-11.0) Red Blood Count 2.79 x10^6/uL (3.50-5.40) Hemoglobin 8.6 g/dL (12.0-15.5) Hematocrit 26.4 % (36.0-47.0) Mean Corpuscular Volume 94 fL (79-100) Mean Corpuscular Hemoglobin 31 pg (25-35) Mean Corpuscular Hemoglobin Concent 33 g/dL (31-37) Red Cell Distribution Width 14.7 % (11.5-14.5) Platelet Count 270 x10^3/uL (140-400) Neutrophils (%) (Auto) 79 % (31-73) Lymphocytes (%) (Auto) 10 % (24-48) Monocytes (%) (Auto) 11 % (0-9) Eosinophils (%) (Auto) 0 % (0-3) Basophils (%) (Auto) 0 % (0-3) Neutrophils # (Auto) 8.0 x10^3uL (1.8-7.7) Lymphocytes # (Auto) 1.0 x10^3/uL (1.0-4.8) Monocytes # (Auto) 1.1 x10^3/uL (0.0-1.1) Eosinophils # (Auto) 0.0 x10^3/uL (0.0-0.7) Basophils # (Auto) 0.0 x10^3/uL (0.0-0.2) Sodium Level 142 mmol/L (136-145) Potassium Level 4.1 mmol/L (3.5-5.1) Chloride Level 104 mmol/L (98-107) Carbon Dioxide Level 26 mmol/L (21-32) Anion Gap 12 (6-14) Blood Urea Nitrogen 31 mg/dL (7-20) Creatinine 1.2 mg/dL (0.6-1.0) Estimated GFR (Cockcroft-Gault) 44.0 BUN/Creatinine Ratio 26 (6-20) Glucose Level 157 mg/dL (70-99) Calcium Level 8.2 mg/dL (8.5-10.1) Total Bilirubin 0.4 mg/dL (0.2-1.0) Aspartate Amino Transf (AST/SGOT) 29 U/L (15-37) Alanine Aminotransferase (ALT/SGPT) 30 U/L (14-59) Alkaline Phosphatase 63 U/L (46-116) Total Protein 5.8 g/dL (6.4-8.2) Albumin 3.0 g/dL (3.4-5.0) Albumin/Globulin Ratio 1.1 (1.0-1.7) Comment Review of Relevant I have reviewed the following items vidal (where applicable) has been applied. Labs Laboratory Tests Test 07/18/18 03:00 07/18/18 10:52 07/19/18 03:30 White Blood Count 5.8 x10^3/uL (4.0-11.0) 10.2 x10^3/uL (4.0-11.0) Red Blood Count 3.03 x10^6/uL (3.50-5.40) 2.79 x10^6/uL (3.50-5.40) Hemoglobin 9.3 g/dL (12.0-15.5) 8.6 g/dL (12.0-15.5) Hematocrit 28.7 % (36.0-47.0) 26.4 % (36.0-47.0) Mean Corpuscular Volume 95 fL (79-100) 94 fL (79-100) Mean Corpuscular Hemoglobin 31 pg (25-35) 31 pg (25-35) Mean Corpuscular Hemoglobin Concent 32 g/dL (31-37) 33 g/dL (31-37) Red Cell Distribution Width 14.6 % (11.5-14.5) 14.7 % (11.5-14.5) Platelet Count 249 x10^3/uL (140-400) 270 x10^3/uL (140-400) Neutrophils (%) (Auto) 52 % (31-73) 79 % (31-73) Lymphocytes (%) (Auto) 27 % (24-48) 10 % (24-48) Monocytes (%) (Auto) 9 % (0-9) 11 % (0-9) Eosinophils (%) (Auto) 11 % (0-3) 0 % (0-3) Basophils (%) (Auto) 1 % (0-3) 0 % (0-3) Neutrophils # (Auto) 3.0 x10^3uL (1.8-7.7) 8.0 x10^3uL (1.8-7.7) Lymphocytes # (Auto) 1.6 x10^3/uL (1.0-4.8) 1.0 x10^3/uL (1.0-4.8) Monocytes # (Auto) 0.5 x10^3/uL (0.0-1.1) 1.1 x10^3/uL (0.0-1.1) Eosinophils # (Auto) 0.6 x10^3/uL (0.0-0.7) 0.0 x10^3/uL (0.0-0.7) Basophils # (Auto) 0.1 x10^3/uL (0.0-0.2) 0.0 x10^3/uL (0.0-0.2) Sodium Level 146 mmol/L (136-145) 142 mmol/L (136-145) Potassium Level 4.0 mmol/L (3.5-5.1) 4.1 mmol/L (3.5-5.1) Chloride Level 106 mmol/L (98-107) 104 mmol/L (98-107) Carbon Dioxide Level 32 mmol/L (21-32) 26 mmol/L (21-32) Anion Gap 8 (6-14) 12 (6-14) Blood Urea Nitrogen 26 mg/dL (7-20) 31 mg/dL (7-20) Creatinine 0.8 mg/dL (0.6-1.0) 1.2 mg/dL (0.6-1.0) Estimated GFR (Cockcroft-Gault) 70.3 44.0 BUN/Creatinine Ratio 33 (6-20) 26 (6-20) Glucose Level 97 mg/dL (70-99) 157 mg/dL (70-99) Calcium Level 8.4 mg/dL (8.5-10.1) 8.2 mg/dL (8.5-10.1) Total Bilirubin 0.3 mg/dL (0.2-1.0) 0.4 mg/dL (0.2-1.0) Aspartate Amino Transf (AST/SGOT) 27 U/L (15-37) 29 U/L (15-37) Alanine Aminotransferase (ALT/SGPT) 26 U/L (14-59) 30 U/L (14-59) Alkaline Phosphatase 60 U/L (46-116) 63 U/L (46-116) Total Protein 5.7 g/dL (6.4-8.2) 5.8 g/dL (6.4-8.2) Albumin 2.8 g/dL (3.4-5.0) 3.0 g/dL (3.4-5.0) Albumin/Globulin Ratio 1.0 (1.0-1.7) 1.1 (1.0-1.7) Activated Clotting Time 225 sec (92-181) Laboratory Tests Test 07/18/18 10:52 07/19/18 03:30 Activated Clotting Time 225 sec (92-181) White Blood Count 10.2 x10^3/uL (4.0-11.0) Red Blood Count 2.79 x10^6/uL (3.50-5.40) Hemoglobin 8.6 g/dL (12.0-15.5) Hematocrit 26.4 % (36.0-47.0) Mean Corpuscular Volume 94 fL (79-100) Mean Corpuscular Hemoglobin 31 pg (25-35) Mean Corpuscular Hemoglobin Concent 33 g/dL (31-37) Red Cell Distribution Width 14.7 % (11.5-14.5) Platelet Count 270 x10^3/uL (140-400) Neutrophils (%) (Auto) 79 % (31-73) Lymphocytes (%) (Auto) 10 % (24-48) Monocytes (%) (Auto) 11 % (0-9) Eosinophils (%) (Auto) 0 % (0-3) Basophils (%) (Auto) 0 % (0-3) Neutrophils # (Auto) 8.0 x10^3uL (1.8-7.7) Lymphocytes # (Auto) 1.0 x10^3/uL (1.0-4.8) Monocytes # (Auto) 1.1 x10^3/uL (0.0-1.1) Eosinophils # (Auto) 0.0 x10^3/uL (0.0-0.7) Basophils # (Auto) 0.0 x10^3/uL (0.0-0.2) Sodium Level 142 mmol/L (136-145) Potassium Level 4.1 mmol/L (3.5-5.1) Chloride Level 104 mmol/L (98-107) Carbon Dioxide Level 26 mmol/L (21-32) Anion Gap 12 (6-14) Blood Urea Nitrogen 31 mg/dL (7-20) Creatinine 1.2 mg/dL (0.6-1.0) Estimated GFR (Cockcroft-Gault) 44.0 BUN/Creatinine Ratio 26 (6-20) Glucose Level 157 mg/dL (70-99) Calcium Level 8.2 mg/dL (8.5-10.1) Total Bilirubin 0.4 mg/dL (0.2-1.0) Aspartate Amino Transf (AST/SGOT) 29 U/L (15-37) Alanine Aminotransferase (ALT/SGPT) 30 U/L (14-59) Alkaline Phosphatase 63 U/L (46-116) Total Protein 5.8 g/dL (6.4-8.2) Albumin 3.0 g/dL (3.4-5.0) Albumin/Globulin Ratio 1.1 (1.0-1.7) Medications Current Medications Aspirin (Children'S Aspirin) 324 mg 1X ONCE PO Last administered on 07/10/18at 16:36; Start 07/10/18 at 15:45; Stop 07/10/18 at 16:30; Status DC Albuterol Sulfate (Ventolin Neb Soln) 2.5 mg PRN Q6HRS PRN INH SHORTNESS OF BREATH Last administered on 07/18/18at 12:34; Start 07/10/18 at 19:00 Alprazolam (Xanax) 0.75 mg PRN DAILY PRN PO ANXIETY / AGITATION Last administered on 07/13/18at 21:44; Start 07/10/18 at 19:00; Stop 07/15/18 at 16:17 ; Status DC Apixaban (Eliquis) 5 mg BID PO Last administered on 07/18/18 21:23; Start 07/10 at 21:00; Stop 07/19/18 at 03:44; Status DC Aspirin (Children'S Aspirin) 81 mg DAILY PO Last administered on 07/19/18 07: 48; Start 07/11/18 at 09:00 Atorvastatin Calcium (Lipitor) 40 mg QHS PO Last administered on 07/18/18 21: 23; Start 07/10/18 at 21:00 Furosemide (Lasix) 10 mg DAILY PO Last administered on 07/19/18 07:46; Start 07/11/18 at 09:00 Isosorbide Mononitrate (Imdur) 30 mg DAILY PO Last administered on 07/19/18 07 :48; Start 07/11/18 at 09:00 Levothyroxine Sodium (Synthroid) 75 mcg DAILY07 PO Last administered on 06:15; Start 07/11/18 at 07:00; Stop 07/12/18 at 17:17; Status DC Lisinopril (Prinivil) 10 mg DAILY PO Last administered on 07/19/18 07:49; Start 07/11/18 at 09:00 Metoprolol Succinate (Toprol Xl) 25 mg DAILY PO Last administered on 07/19/18 07:48; Start 07/11/18 at 09:00 Nitroglycerin (Nitrostat) 0.4 mg PRN Q5MIN PRN SL CHEST PAIN; Start 07/10/18 at 19:00 Triamcinolone Acetonide (Kenalog) 1 mayank PRN BID PRN TP RASH; Start 07/10/18 at 19:00 Non-Formulary Medication (Alendronate Sodium (Fosamax)) 1 tab WEEKLY PO ; Start 07/17/18 at 09:00; Status UNV Calcium Carbonate/ Glycine (Oscal) 1,000 mg TIDAFTMEAL PO Last administered on 07/19/18 07:47; Start 07/11/18 at 09:00 Vitamin D (Vitamin D3) 2,000 unit DAILY PO Last administered on 07/19/18 07:47 ; Start 07/11/18 at 09:00 Diltiazem HCl (Cardizem 24hr Cd) 120 mg DAILY PO Last administered on 07:50; Start 07/11/18 at 09:00 Guaifenesin (Robitussin) 400 mg PRN BID PRN PO COUGH; Start 07/10/18 at 19:15 Memantine (Namenda) 10 mg DAILY PO ; Start 07/11/18 at 09:00; Stop 07/11/18 at 12: 59; Status DC Multivitamins (Thera M Plus) 1 tab DAILY PO Last administered on 07/19/18 07: 47; Start 07/11/18 at 09:00 Fish Oil (Fish Oil) 1,000 mg DAILY PO Last administered on 07/19/18 07:47; Start 07/11/18 at 09:00 Pantoprazole Sodium (Protonix) 40 mg DAILYAC PO Last administered on 07/19/18 07:45; Start 07/11/18 at 07:30 Non-Formulary Medication (Potassium Chloride ) 99 mg DAILY PO ; Start 07/11/18 at 09:00; Status UNV Pyridoxine HCl (Vitamin B-6) 200 mg DAILY PO Last administered on 07/19/18 07: 46; Start 07/11/18 at 09:00 Non-Formulary Medication (Ubidecarenone (Coenzyme Q10)) 10 mg DAILY PO ; Start 07/11/18 at 09:00; Status UNV Non-Formulary Medication 1 ea DAILY INH Last administered on 07/17/18at 12:37; Start 07/11/18 at 09:00 Info (Anti-Coagulation Monitoring By Pharmacy) 1 each PRN DAILY PRN MC SEE COMMENTS Last administered on 07/18/18 09:12; Start 07/11/18 at 07:45 Acetaminophen (Tylenol) 650 mg PRN Q6HRS PRN PO TEMP > 100.4F; Start 07/11/18 at 08:45 Acetaminophen (Tylenol Supp) 650 mg PRN Q4HRS PRN [place] TEMP > 100.4F; Start at 08:45 Memantine (Namenda) 10 mg QHS PO Last administered on 07/18/18 21:23; Start at 21:00 Magnesium Hydroxide (Milk Of Magnesia) 2,400 mg PRN DAILY PRN PO CONSTIPATION Last administered on 07/19/18 07:45; Start 07/12/18 at 14:15 Albuterol Sulfate (Ventolin Neb Soln) 2.5 mg RTQID NEB Last administered on at 07:39; Start 07/12/18 at 20:00 Levothyroxine Sodium (Synthroid) 100 mcg DAILY07 PO Last administered on at 07:45; Start 07/13/18 at 07:00 Iohexol (Omnipaque 350 Mg/ml) 75 ml 1X ONCE IV Last administered on 07/13/18at 07:39; Start 07/13/18 at 07:15; Stop 07/13/18 at 07:16; Status DC Info (CONTRAST GIVEN -- Rx MONITORING) 1 each PRN DAILY PRN MC SEE COMMENTS; Start 07/13/18 at 07:15; Stop 07/15/18 at 07:14; Status DC Magnesium Hydroxide (Milk Of Magnesia) 2,400 mg 1X ONCE PO Last administered on 07/13/18at 12:36; Start 07/13/18 at 11:00; Stop 07/13/18 at 11:01; Status DC Alprazolam (Xanax) 0.25 mg PRN Q8HRS PRN PO ANXIETY / AGITATION Last administered on 07/19/18at 00:28; Start 07/14/18 at 17:15 Lidocaine/Sodium Bicarbonate (Buffered Lidocaine 1%) 3 ml STK-MED ONCE .ROUTE ; Start 07/15/18 at 13:13; Stop 07/15/18 at 13:14; Status DC Iohexol (Omnipaque 300 Mg/ml) 100 ml STK-MED ONCE .ROUTE ; Start 07/15/18 at 13: 13; Stop 07/15/18 at 13:14; Status DC Heparin Sodium/ Sodium Chloride 1,000 ml @ As Directed STK-MED ONCE .ROUTE ; Start 07/15/18 at 13:14; Stop 07/15/18 at 13:15; Status DC Pantoprazole Sodium (Protonix) 40 mg 1X ONCE PO Last administered on at 19:51; Start 07/16/18 at 19:30; Stop 07/16/18 at 19:31; Status DC Iohexol (Omnipaque 240 Mg/ml) 100 ml STK-MED ONCE .ROUTE ; Start 07/17/18 at 09: 43; Stop 07/17/18 at 09:44; Status DC Lidocaine/Sodium Bicarbonate (Buffered Lidocaine 1%) 3 ml STK-MED ONCE .ROUTE ; Start 07/17/18 at 09:44; Stop 07/17/18 at 09:45; Status DC Heparin Sodium/ Sodium Chloride 500 ml @ As Directed STK-MED ONCE .ROUTE ; Start 07/17/18 at 09:44; Stop 07/17/18 at 09:45; Status DC Midazolam HCl (Versed) 2 mg STK-MED ONCE .ROUTE ; Start 07/17/18 at 10:47; Stop 07/17/18 at 10:48; Status DC Fentanyl Citrate (Fentanyl 2ml Vial) 100 mcg STK-MED ONCE .ROUTE ; Start at 10:47; Stop 07/17/18 at 10:48; Status DC Iohexol (Omnipaque 240 Mg/ml) 100 ml STK-MED ONCE .ROUTE ; Start 07/17/18 at 10: 51; Stop 07/17/18 at 10:52; Status DC Heparin Sodium/ Sodium Chloride (HEPARIN for ARTERIAL LINE FLUSH) 1,000 unit 1X ONCE IART Last administered on 07/17/18at 11:45; Start 07/17/18 at 11:45; Stop 07/17/18 at 11:46; Status DC Lidocaine/Sodium Bicarbonate (Buffered Lidocaine 1%) 3 ml 1X ONCE IJ Last administered on 07/17/18at 11:58; Start 07/17/18 at 11:45; Stop 07/17/18 at 11:46 ; Status DC Midazolam HCl (Versed) 2 mg 1X ONCE IV Last administered on 07/17/18at 11:59; Start 07/17/18 at 11:45; Stop 07/17/18 at 11:46; Status DC Fentanyl Citrate (Fentanyl 2ml Vial) 100 mcg 1X ONCE IV Last administered on at 11:59; Start 07/17/18 at 11:45; Stop 07/17/18 at 11:46; Status DC Iohexol (Omnipaque 240 Mg/ml) 100 ml 1X ONCE INT ART Last administered on 07/17at 11:58; Start 07/17/18 at 11:45; Stop 07/17/18 at 11:46; Status DC Vancomycin HCl 250 ml @ 250 mls/hr 1X PREOP PRN IV PRIOR TO PROCEDURE Last administered on 07/18/18at 09:30; Start 07/18/18 at 06:00; Stop 07/18/18 at 18:00 ; Status DC Ondansetron HCl (Zofran) 4 mg PRN Q6HRS PRN IV NAUSEA/VOMITING; Start 07/18/18 at 06:45; Stop 07/19/18 at 06:44; Status DC Fentanyl Citrate (Fentanyl 2ml Vial) 25 mcg PRN Q5MIN PRN IV MILD PAIN Last administered on 07/18/18at 14:42; Start 07/18/18 at 06:45; Stop 07/19/18 at 06:44 ; Status DC Fentanyl Citrate (Fentanyl 2ml Vial) 50 mcg PRN Q5MIN PRN IV MODERATE TO SEVERE PAIN; Start 07/18/18 at 06:45; Stop 07/19/18 at 06:44; Status DC Ringer's Solution 1,000 ml @ 30 mls/hr Q24H IV Last administered on 07/18/18at 09:39; Start 07/18/18 at 06:31; Stop 07/18/18 at 18:30; Status DC Lidocaine HCl (Xylocaine-Mpf 1% 2ml Vial) 2 ml PRN 1X PRN ID PRIOR TO IV START Last administered on 07/18/18at 09:40; Start 07/18/18 at 06:45; Stop 07/19/18 at 06:44; Status DC Prochlorperazine Edisylate (Compazine) 5 mg PACU PRN PRN IV NAUSEA, MRX1; Start 07/18/18 at 06:45; Stop 07/19/18 at 06:44; Status DC Heparin Sodium (Porcine) 5000 unit/Sodium Chloride 505 ml @ 505 mls/hr 1X ONCE IRR Last administered on 07/18/18at 11:05; Start 07/18/18 at 07:25; Stop at 08:24; Status DC Ropivacaine (Naropin 0.5%) 20 ml STK-MED ONCE .ROUTE ; Start 07/18/18 at 08:54; Stop 07/18/18 at 08:55; Status DC Nicardipine HCl (Cardene) 25 mg STK-MED ONCE IV ; Start 07/18/18 at 09:16; Stop 07/18/18 at 09:17; Status DC Midazolam HCl (Versed) 2 mg STK-MED ONCE .ROUTE ; Start 07/18/18 at 09:17; Stop 07/18/18 at 09:18; Status DC Phenylephrine HCl (Rito-Synephrine Inj) 10 mg STK-MED ONCE .ROUTE ; Start at 09:17; Stop 07/18/18 at 09:18; Status DC Albuterol/ Ipratropium (Duoneb) 3 ml STK-MED ONCE .ROUTE ; Start 07/18/18 at 09: 31; Stop 07/18/18 at 09:32; Status DC Albuterol/ Ipratropium (Duoneb) 3 ml 1X ONCE NEB Last administered on at 09:38; Start 07/18/18 at 09:45; Stop 07/18/18 at 09:46; Status DC Bupivacaine HCl/ Epinephrine Bitart (Sensorcaine-Epi 0.25%-1:[id number] Mpf) 30 ml STK-MED ONCE .ROUTE Last administered on 07/18/18at 10:32; Start 07/18/18 at 08: 37; Stop 07/18/18 at 09:37; Status DC Dexamethasone Sodium Phosphate (Decadron) 20 mg STK-MED ONCE .ROUTE ; Start at 09:44; Stop 07/18/18 at 09:45; Status DC Ondansetron HCl (Zofran) 4 mg STK-MED ONCE .ROUTE ; Start 07/18/18 at 09:44; Stop 07/18/18 at 09:45; Status DC Propofol 20 ml @ As Directed STK-MED ONCE IV ; Start 07/18/18 at 09:44; Stop at 09:45; Status DC Lidocaine HCl (Lidocaine Pf 2% Vial) 5 ml STK-MED ONCE .ROUTE ; Start 07/18/18 at 09:44; Stop 07/18/18 at 09:45; Status DC Rocuronium [place] (Zemuron) 50 mg STK-MED ONCE .ROUTE ; Start 07/18/18 at 09:44 ; Stop 07/18/18 at 09:45; Status DC Nitroglycerin/ Dextrose 0 ml @ As Directed STK-MED ONCE IV ; Start 07/18/18 at 09:52; Stop 07/18/18 at 09:53; Status DC Glycopyrrolate (Robinul) 1 mg STK-MED ONCE .ROUTE ; Start 07/18/18 at 10:24; Stop 07/18/18 at 10:25; Status DC Heparin Sodium (Porcine) (Heparin Sodium) 10,000 unit STK-MED ONCE .ROUTE ; Start 07/18/18 at 10:58; Stop 07/18/18 at 10:59; Status DC Sodium Chloride (SODIUM CHLORIDE 20ml) 20 ml STK-MED ONCE IJ ; Start 07/18/18 at 10:58; Stop 07/18/18 at 10:59; Status DC Neostigmine Methylsulfate (Bloxiverz) 10 mg STK-MED ONCE .ROUTE ; Start at 11:17; Stop 07/18/18 at 11:18; Status DC Cellulose (Surgicel Hemostat 4x8) 1 each STK-MED ONCE .ROUTE Last administered on 07/18/18at 11:42; Start 07/18/18 at 10:41; Stop 07/18/18 at 11:41; Status DC Flumazenil (Romazicon) 0.5 mg STK-MED ONCE IV ; Start 07/18/18 at 12:16; Stop at 12:17; Status DC Sevoflurane (Ultane) 90 ml STK-MED ONCE IH ; Start 07/18/18 at 12:22; Stop 07/18 at 12:23; Status DC Protamine Sulfate (Protamine) 50 mg STK-MED ONCE IV ; Start 07/18/18 at 12:22; Stop 07/18/18 at 12:23; Status DC Sodium Chloride (Normal Saline Flush) 3 ml QSHIFT PRN IV AFTER MEDS AND BLOOD DRAWS; Start 07/18/18 at 12:30 Sodium Chloride 1,000 ml @ 100 mls/hr Q10H IV ; Start 07/18/18 at 12:24 Hydromorphone HCl (Dilaudid) 0.2 mg PRN Q1HR PRN IV PAIN; Start 07/18/18 at 12: 30; Status UNV Acetaminophen/ Hydrocodone Bitart (Lortab 5/325) 1 tab PRN Q4HRS PRN PO MILD PAIN; Start 07/18/18 at 12:30; Status UNV Acetaminophen (Tylenol) 650 mg Q8HRS PO Last administered on 07/18/18at 21:24; Start 07/18/18 at 14:00; Stop 07/19/18 at 04:04; Status DC Ondansetron HCl (Zofran) 4 mg PRN Q6HRS PRN IV NAUESA, 1ST CHOICE; Start at 12:30 Lidocaine HCl (Lidocaine Pf 2% Vial) 5 ml STK-MED ONCE .ROUTE ; Start 07/18/18 at 12:34; Stop 07/18/18 at 12:35; Status DC Fentanyl Citrate (Fentanyl 2ml Vial) 100 mcg STK-MED ONCE .ROUTE ; Start at 13:13; Stop 07/18/18 at 13:14; Status DC Fentanyl Citrate (Fentanyl 2ml Vial) 50 mcg PRN Q3HRS PRN IV MODERATE PAIN; Start 07/18/18 at 18:30 Fentanyl Citrate (Fentanyl 2ml Vial) 75 mcg PRN Q3HRS PRN IV SEVERE PAIN; Start 07/18/18 at 18:30 Sodium Chloride 750 ml @ 375 mls/hr 1X ONCE IV Last administered on at 19:15; Start 07/18/18 at 19:15; Stop 07/18/18 at 21:14; Status DC Pantoprazole Sodium (Protonix) 40 mg 1X ONCE PO Last administered on at 23:00; Start 07/18/18 at 23:00; Stop 07/18/18 at 23:01; Status DC Active Scripts Active Reported Alprazolam 0.5 Mg Tablet 0.5 Mg PO PRN DAILY PRN Anoro Ellipta 62.5-25 Mcg Inh (Umeclidinium Brm/Vilanterol Tr) 1 Each Disk.w.dev 1 Each IH DAILY Triamcinolone Acetonide 0.1% Oint (Triamcinolone Acetonide) 15 Gm Oint...g. 1 Mayank TP PRN BID MIX WITH EUCERIN DIRECTED BY PHYSICIAN Synthroid (Levothyroxine Sodium) 75 Mcg Tablet 1 Tab PO DAILY B-6 (Pyridoxine HCl (Vitamin B6)) 200 Mg Tablet.er 200 Mg PO DAILY Proair Hfa Inhaler (Albuterol Sulfate) 8.5 Gm Hfa.aer.ad 2 Puff INH PRN Q6HRS PRN Potassium Chloride 20 Meq Tablet.er 99 Mg PO DAILY Protonix (Pantoprazole Sodium) 20 Mg Tablet.dr 40 Mg PO DAILY Fish Oil 1,000 mg Softgel ([place]-3/Dha/Epa/Fish Oil) 1,000 Mg Capsule 1,000 Mg PO DAILY NITROGLYCERIN SubLingual (Nitroglycerin) 0.4 Mg Tab.subl 0.4 Mg SL PRN Q5MIN PRN Multivitamins (Multivitamin) 1 Each Tablet 1 Tab PO DAILY Metoprolol Succinate ( Xl ) (Metoprolol Succinate) 25 Mg Tab.er.24h 25 Mg PO DAILY Namenda (Memantine Hcl) 10 Mg Tablet 10 Mg PO DAILY Lisinopril 10 Mg Tablet 10 Mg PO DAILY Isosorbide Mononitrate Er (Isosorbide Mononitrate) 30 Mg Tab.er.24h 30 Mg PO DAILY Guaifenesin 400 Mg Tablet 400 Mg PO PRN BID Lasix (Furosemide) 20 Mg Tablet 10 Mg PO DAILY Eliquis (Apixaban) 5 Mg Tablet 5 Mg PO BID Cardizem Cd (Diltiazem Hcl) 180 Mg Cap.er.24h 120 Mg PO DAILY Coenzyme Q10 (Ubidecarenone) 10 Mg Capsule 10 Mg PO DAILY Vitamin D (Cholecalciferol (Vitamin D3)) 2,000 Unit Capsule 1 Cap PO DAILY Calcium Carbonate 600 Mg Tablet 1,200 Mg PO TID Lipitor (Atorvastatin Calcium) 40 Mg Tablet 1 Tab PO QHS Aspirin 81 Mg Tab.chew 1 Tab PO DAILY Xanax (Alprazolam) 0.5 Mg Tablet 0.75 Mg PO PRN DAILY PRN Fosamax (Alendronate Sodium) 70 Mg Tablet 1 Tab PO WEEKLY Proair Hfa Inhaler (Albuterol Sulfate) 8.5 Gm Hfa.aer.ad 1 Puff INH PRN Q6HRS PRN Vitals/I & O Vital Sign - Last 24 Hours 07/18/18 07/18/18 07/18/18 07/18/18 09:29 12:25 12:40 12:40 Temp 97.9 99.1 99.1 97.9 99.1 99.1 Pulse 60 78 76 Resp 20 28 26 B/P (MAP) 145/60 134/59 125/57 Pulse Ox 100 97 97 O2 Delivery Nasal Cannula Simple Mask Simple Mask Mask O2 Flow Rate 2.0 6 8 6 07/18/18 07/18/18 07/18/18 07/18/18 12:55 13:10 13:18 13:25 Temp 99.1 99.1 99.1 99.1 99.1 99.1 Pulse 75 72 72 Resp 24 25 24 24 B/P (MAP) 125/57 114/50 111/50 Pulse Ox 92 92 92 94 O2 Delivery Nasal Cannula Nasal Cannula Nasal Cannula Nasal Cannula O2 Flow Rate 2 2 2.0 4 07/18/18 07/18/18 07/18/18 07/18/18 13:31 13:40 13:55 14:10 Temp 99.1 99.4 99.4 99.1 99.4 99.4 Pulse 70 65 64 Resp 24 18 18 20 B/P (MAP) 104/48 96/47 102/44 Pulse Ox 95 95 95 96 O2 Delivery Nasal Cannula Nasal Cannula Nasal Cannula Nasal Cannula O2 Flow Rate 4.0 4.0 4.0 4.0 07/18/18 07/18/18 07/18/18 07/18/18 14:25 14:40 14:42 15:00 Temp 99.4 99.4 99.4 99.4 Pulse 70 70 68 Resp 20 20 20 B/P (MAP) 108/48 119/52 108/49 (68) Pulse Ox 97 97 96 O2 Delivery Nasal Cannula Nasal Cannula Nasal Cannula O2 Flow Rate 4.0 4.0 4.0 07/18/18 07/18/18 07/18/18 07/18/18 15:12 15:15 15:15 15:30 Temp 98.0 98.0 Pulse 63 63 62 Resp 22 B/P (MAP) 106/46 (66) 106/46 (66) 107/45 (65) Pulse Ox 96 97 O2 Delivery Nasal Cannula Nasal Cannula O2 Flow Rate 4.0 2.0 07/18/18 07/18/18 07/18/18 07/18/18 15:36 15:45 16:45 18:00 Pulse 65 66 70 B/P (MAP) 112/43 (66) 94/35 (54) 93/35 (54) Pulse Ox 96 O2 Delivery Nasal Cannula O2 Flow Rate 2.0 307/18/18 07/18/18 07/18/18 19:30 20:23 21:34 23:29 Temp 99.3 98.9 99.3 98.9 Pulse 75 76 Resp 22 20 B/P (MAP) 100/43 (62) 102/42 (62) Pulse Ox 97 98 96 O2 Delivery Nasal Cannula Mask Nasal Cannula O2 Flow Rate 3.5 3.5 3.5 2.0 07/19/18 07/19/18 07/19/18 07/19/18 03:05 07:25 07:39 07:48 Temp 98.1 97.3 98.1 97.3 Pulse 66 64 64 Resp 20 20 B/P (MAP) 113/53 (73) 113/49 (70) 113/49 Pulse Ox 94 99 99 O2 Delivery Nasal Cannula Nasal Cannula Nasal Cannula O2 Flow Rate 2.0 2.0 2.0 07/19/18 07/19/18 07/19/18 07/19/18 07:48 07:49 07:50 08:00 Pulse 64 64 64 B/P (MAP) 113/49 113/49 113/49 O2 Delivery Room Air Intake and Output 07/18/18 07/18/18 07/19/18 14:59 22:59 06:59 Intake Total 1600 ml 700 ml 440 ml Output Total 150 ml 0 ml Balance 1450 ml 700 ml 440 ml Nutrition Consultation Dietary Evaluation: Recommendations by RD: Protein supplementation Comments: REC resume regular diet when able REC Ensure BID (strawberry) breakfast and dinner Expected Outcomes/Goals: PO intake to meet >75% est needs- goal ongoing Malnutrition Findings: Body Fat Depletion (Non Severe: Mild Depletion Weight Status: Appropriate RUBEN GARCIA MD Jul 19, 2018 09:15
--- NOTE | 2018-07-19 09:49 | PDOC ---
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 tomorrow would be OK to re-start her Eliquis (for paroxismal a-fib in the past) continue aspirin with eliquis for at least one month after CEA, 3 months better She may need occup therapist placement - ? her ability to take care of herself at home Objective Objective Vital Signs Date Time Temp Pulse Resp B/P (MAP) Pulse Ox O2 Delivery O2 Flow Rate FiO2 07/19/18 08:00 Room Air 07/19/18 07:50 64 113/49 07/19/18 07:39 99 2.0 07/19/18 07:25 97.3 20 97.3 Intake and Output 07/19/18 07:00 Intake Total 2740 ml Output Total 150 ml Balance 2590 ml Intake Oral 440 ml IV Total 2300 ml Output Urine Total 0 ml Estimated Blood Loss 150 ml # Voids 1 Comment Review of Relevant I have reviewed the following items vidal (where applicable) has been applied. Labs Laboratory Tests Test 07/18/18 03:00 07/18/18 10:52 07/19/18 03:30 White Blood Count 5.8 x10^3/uL (4.0-11.0) 10.2 x10^3/uL (4.0-11.0) Red Blood Count 3.03 x10^6/uL (3.50-5.40) 2.79 x10^6/uL (3.50-5.40) Hemoglobin 9.3 g/dL (12.0-15.5) 8.6 g/dL (12.0-15.5) Hematocrit 28.7 % (36.0-47.0) 26.4 % (36.0-47.0) Mean Corpuscular Volume 95 fL (79-100) 94 fL (79-100) Mean Corpuscular Hemoglobin 31 pg (25-35) 31 pg (25-35) Mean Corpuscular Hemoglobin Concent 32 g/dL (31-37) 33 g/dL (31-37) Red Cell Distribution Width 14.6 % (11.5-14.5) 14.7 % (11.5-14.5) Platelet Count 249 x10^3/uL (140-400) 270 x10^3/uL (140-400) Neutrophils (%) (Auto) 52 % (31-73) 79 % (31-73) Lymphocytes (%) (Auto) 27 % (24-48) 10 % (24-48) Monocytes (%) (Auto) 9 % (0-9) 11 % (0-9) Eosinophils (%) (Auto) 11 % (0-3) 0 % (0-3) Basophils (%) (Auto) 1 % (0-3) 0 % (0-3) Neutrophils # (Auto) 3.0 x10^3uL (1.8-7.7) 8.0 x10^3uL (1.8-7.7) Lymphocytes # (Auto) 1.6 x10^3/uL (1.0-4.8) 1.0 x10^3/uL (1.0-4.8) Monocytes # (Auto) 0.5 x10^3/uL (0.0-1.1) 1.1 x10^3/uL (0.0-1.1) Eosinophils # (Auto) 0.6 x10^3/uL (0.0-0.7) 0.0 x10^3/uL (0.0-0.7) Basophils # (Auto) 0.1 x10^3/uL (0.0-0.2) 0.0 x10^3/uL (0.0-0.2) Sodium Level 146 mmol/L (136-145) 142 mmol/L (136-145) Potassium Level 4.0 mmol/L (3.5-5.1) 4.1 mmol/L (3.5-5.1) Chloride Level 106 mmol/L (98-107) 104 mmol/L (98-107) Carbon Dioxide Level 32 mmol/L (21-32) 26 mmol/L (21-32) Anion Gap 8 (6-14) 12 (6-14) Blood Urea Nitrogen 26 mg/dL (7-20) 31 mg/dL (7-20) Creatinine 0.8 mg/dL (0.6-1.0) 1.2 mg/dL (0.6-1.0) Estimated GFR (Cockcroft-Gault) 70.3 44.0 BUN/Creatinine Ratio 33 (6-20) 26 (6-20) Glucose Level 97 mg/dL (70-99) 157 mg/dL (70-99) Calcium Level 8.4 mg/dL (8.5-10.1) 8.2 mg/dL (8.5-10.1) Total Bilirubin 0.3 mg/dL (0.2-1.0) 0.4 mg/dL (0.2-1.0) Aspartate Amino Transf (AST/SGOT) 27 U/L (15-37) 29 U/L (15-37) Alanine Aminotransferase (ALT/SGPT) 26 U/L (14-59) 30 U/L (14-59) Alkaline Phosphatase 60 U/L (46-116) 63 U/L (46-116) Total Protein 5.7 g/dL (6.4-8.2) 5.8 g/dL (6.4-8.2) Albumin 2.8 g/dL (3.4-5.0) 3.0 g/dL (3.4-5.0) Albumin/Globulin Ratio 1.0 (1.0-1.7) 1.1 (1.0-1.7) Activated Clotting Time 225 sec (92-181) Laboratory Tests Test 07/18/18 10:52 07/19/18 03:30 Activated Clotting Time 225 sec (92-181) White Blood Count 10.2 x10^3/uL (4.0-11.0) Red Blood Count 2.79 x10^6/uL (3.50-5.40) Hemoglobin 8.6 g/dL (12.0-15.5) Hematocrit 26.4 % (36.0-47.0) Mean Corpuscular Volume 94 fL (79-100) Mean Corpuscular Hemoglobin 31 pg (25-35) Mean Corpuscular Hemoglobin Concent 33 g/dL (31-37) Red Cell Distribution Width 14.7 % (11.5-14.5) Platelet Count 270 x10^3/uL (140-400) Neutrophils (%) (Auto) 79 % (31-73) Lymphocytes (%) (Auto) 10 % (24-48) Monocytes (%) (Auto) 11 % (0-9) Eosinophils (%) (Auto) 0 % (0-3) Basophils (%) (Auto) 0 % (0-3) Neutrophils # (Auto) 8.0 x10^3uL (1.8-7.7) Lymphocytes # (Auto) 1.0 x10^3/uL (1.0-4.8) Monocytes # (Auto) 1.1 x10^3/uL (0.0-1.1) Eosinophils # (Auto) 0.0 x10^3/uL (0.0-0.7) Basophils # (Auto) 0.0 x10^3/uL (0.0-0.2) Sodium Level 142 mmol/L (136-145) Potassium Level 4.1 mmol/L (3.5-5.1) Chloride Level 104 mmol/L (98-107) Carbon Dioxide Level 26 mmol/L (21-32) Anion Gap 12 (6-14) Blood Urea Nitrogen 31 mg/dL (7-20) Creatinine 1.2 mg/dL (0.6-1.0) Estimated GFR (Cockcroft-Gault) 44.0 BUN/Creatinine Ratio 26 (6-20) Glucose Level 157 mg/dL (70-99) Calcium Level 8.2 mg/dL (8.5-10.1) Total Bilirubin 0.4 mg/dL (0.2-1.0) Aspartate Amino Transf (AST/SGOT) 29 U/L (15-37) Alanine Aminotransferase (ALT/SGPT) 30 U/L (14-59) Alkaline Phosphatase 63 U/L (46-116) Total Protein 5.8 g/dL (6.4-8.2) Albumin 3.0 g/dL (3.4-5.0) Albumin/Globulin Ratio 1.1 (1.0-1.7) Medications Current Medications Aspirin (Children'S Aspirin) 324 mg 1X ONCE PO Last administered on 07/10/18at 16:36; Start 07/10/18 at 15:45; Stop 07/10/18 at 16:30; Status DC Albuterol Sulfate (Ventolin Neb Soln) 2.5 mg PRN Q6HRS PRN INH SHORTNESS OF BREATH Last administered on 07/18/18at 12:34; Start 07/10/18 at 19:00 Alprazolam (Xanax) 0.75 mg PRN DAILY PRN PO ANXIETY / AGITATION Last administered on 07/13/18 21:44; Start 07/10/18 at 19:00; Stop 07/15/18 at 16:17 ; Status DC Apixaban (Eliquis) 5 mg BID PO Last administered on 07/18/18 21:23; Start 07/10 at 21:00; Stop 07/19/18 at 03:44; Status DC Aspirin (Children'S Aspirin) 81 mg DAILY PO Last administered on 07/19/18 07: 48; Start 07/11/18 at 09:00 Atorvastatin Calcium (Lipitor) 40 mg QHS PO Last administered on 07/18/18 21: 23; Start 07/10/18 at 21:00 Furosemide (Lasix) 10 mg DAILY PO Last administered on 07/19/18 07:46; Start 07/11/18 at 09:00 Isosorbide Mononitrate (Imdur) 30 mg DAILY PO Last administered on 07/19/18 07 :48; Start 07/11/18 at 09:00 Levothyroxine Sodium (Synthroid) 75 mcg DAILY07 PO Last administered on 06:15; Start 07/11/18 at 07:00; Stop 07/12/18 at 17:17; Status DC Lisinopril (Prinivil) 10 mg DAILY PO Last administered on 07/19/18 07:49; Start 07/11/18 at 09:00 Metoprolol Succinate (Toprol Xl) 25 mg DAILY PO Last administered on 07/19/18 07:48; Start 07/11/18 at 09:00 Nitroglycerin (Nitrostat) 0.4 mg PRN Q5MIN PRN SL CHEST PAIN; Start 07/10/18 at 19:00 Triamcinolone Acetonide (Kenalog) 1 mayank PRN BID PRN TP RASH; Start 07/10/18 at 19:00 Non-Formulary Medication (Alendronate Sodium (Fosamax)) 1 tab WEEKLY PO ; Start 07/17/18 at 09:00; Status UNV Calcium Carbonate/ Glycine (Oscal) 1,000 mg TIDAFTMEAL PO Last administered on 07/19/18 07:47; Start 07/11/18 at 09:00 Vitamin D (Vitamin D3) 2,000 unit DAILY PO Last administered on 07/19/18 07:47 ; Start 07/11/18 at 09:00 Diltiazem HCl (Cardizem 24hr Cd) 120 mg DAILY PO Last administered on 07:50; Start 07/11/18 at 09:00 Guaifenesin (Robitussin) 400 mg PRN BID PRN PO COUGH; Start 07/10/18 at 19:15 Memantine (Namenda) 10 mg DAILY PO ; Start 07/11/18 at 09:00; Stop 07/11/18 at 12: 59; Status DC Multivitamins (Thera M Plus) 1 tab DAILY PO Last administered on 07/19/18 07: 47; Start 07/11/18 at 09:00 Fish Oil (Fish Oil) 1,000 mg DAILY PO Last administered on 07/19/18 07:47; Start 07/11/18 at 09:00 Pantoprazole Sodium (Protonix) 40 mg DAILYAC PO Last administered on 07/19/18 07:45; Start 07/11/18 at 07:30 Non-Formulary Medication (Potassium Chloride ) 99 mg DAILY PO ; Start 07/11/18 at 09:00; Status UNV Pyridoxine HCl (Vitamin B-6) 200 mg DAILY PO Last administered on 07/19/18 07: 46; Start 07/11/18 at 09:00 Non-Formulary Medication (Ubidecarenone (Coenzyme Q10)) 10 mg DAILY PO ; Start 07/11/18 at 09:00; Status UNV Non-Formulary Medication 1 ea DAILY INH Last administered on 07/17/18 12:37; Start 07/11/18 at 09:00 Info (Anti-Coagulation Monitoring By Pharmacy) 1 each PRN DAILY PRN MC SEE COMMENTS Last administered on 07/18/18 09:12; Start 07/11/18 at 07:45 Acetaminophen (Tylenol) 650 mg PRN Q6HRS PRN PO TEMP > 100.4F; Start 07/11/18 at 08:45 Acetaminophen (Tylenol Supp) 650 mg PRN Q4HRS PRN AK TEMP > 100.4F; Start at 08:45 Memantine (Namenda) 10 mg QHS PO Last administered on 07/18/18at 21:23; Start at 21:00 Magnesium Hydroxide (Milk Of Magnesia) 2,400 mg PRN DAILY PRN PO CONSTIPATION Last administered on 07/19/18at 07:45; Start 07/12/18 at 14:15 Albuterol Sulfate (Ventolin Neb Soln) 2.5 mg RTQID NEB Last administered on at 07:39; Start 07/12/18 at 20:00 Levothyroxine Sodium (Synthroid) 100 mcg DAILY07 PO Last administered on 07:45; Start 07/13/18 at 07:00 Iohexol (Omnipaque 350 Mg/ml) 75 ml 1X ONCE IV Last administered on 07/13/18at 07:39; Start 07/13/18 at 07:15; Stop 07/13/18 at 07:16; Status DC Info (CONTRAST GIVEN -- Rx MONITORING) 1 each PRN DAILY PRN MC SEE COMMENTS; Start 07/13/18 at 07:15; Stop 07/15/18 at 07:14; Status DC Magnesium Hydroxide (Milk Of Magnesia) 2,400 mg 1X ONCE PO Last administered on 07/13/18at 12:36; Start 07/13/18 at 11:00; Stop 07/13/18 at 11:01; Status DC Alprazolam (Xanax) 0.25 mg PRN Q8HRS PRN PO ANXIETY / AGITATION Last administered on 07/19/18at 00:28; Start 07/14/18 at 17:15 Lidocaine/Sodium Bicarbonate (Buffered Lidocaine 1%) 3 ml STK-MED ONCE .ROUTE ; Start 07/15/18 at 13:13; Stop 07/15/18 at 13:14; Status DC Iohexol (Omnipaque 300 Mg/ml) 100 ml STK-MED ONCE .ROUTE ; Start 07/15/18 at 13: 13; Stop 07/15/18 at 13:14; Status DC Heparin Sodium/ Sodium Chloride 1,000 ml @ As Directed STK-MED ONCE .ROUTE ; Start 07/15/18 at 13:14; Stop 07/15/18 at 13:15; Status DC Pantoprazole Sodium (Protonix) 40 mg 1X ONCE PO Last administered on at 19:51; Start 07/16/18 at 19:30; Stop 07/16/18 at 19:31; Status DC Iohexol (Omnipaque 240 Mg/ml) 100 ml STK-MED ONCE .ROUTE ; Start 07/17/18 at 09: 43; Stop 07/17/18 at 09:44; Status DC Lidocaine/Sodium Bicarbonate (Buffered Lidocaine 1%) 3 ml STK-MED ONCE .ROUTE ; Start 07/17/18 at 09:44; Stop 07/17/18 at 09:45; Status DC Heparin Sodium/ Sodium Chloride 500 ml @ As Directed STK-MED ONCE .ROUTE ; Start 07/17/18 at 09:44; Stop 07/17/18 at 09:45; Status DC Midazolam HCl (Versed) 2 mg STK-MED ONCE .ROUTE ; Start 07/17/18 at 10:47; Stop 07/17/18 at 10:48; Status DC Fentanyl Citrate (Fentanyl 2ml Vial) 100 mcg STK-MED ONCE .ROUTE ; Start at 10:47; Stop 07/17/18 at 10:48; Status DC Iohexol (Omnipaque 240 Mg/ml) 100 ml STK-MED ONCE .ROUTE ; Start 07/17/18 at 10: 51; Stop 07/17/18 at 10:52; Status DC Heparin Sodium/ Sodium Chloride (HEPARIN for ARTERIAL LINE FLUSH) 1,000 unit 1X ONCE IART Last administered on 07/17/18at 11:45; Start 07/17/18 at 11:45; Stop 07/17/18 at 11:46; Status DC Lidocaine/Sodium Bicarbonate (Buffered Lidocaine 1%) 3 ml 1X ONCE IJ Last administered on 07/17/18at 11:58; Start 07/17/18 at 11:45; Stop 07/17/18 at 11:46 ; Status DC Midazolam HCl (Versed) 2 mg 1X ONCE IV Last administered on 07/17/18at 11:59; Start 07/17/18 at 11:45; Stop 07/17/18 at 11:46; Status DC Fentanyl Citrate (Fentanyl 2ml Vial) 100 mcg 1X ONCE IV Last administered on 11:59; Start 07/17/18 at 11:45; Stop 07/17/18 at 11:46; Status DC Iohexol (Omnipaque 240 Mg/ml) 100 ml 1X ONCE INT ART Last administered on 07/17 11:58; Start 07/17/18 at 11:45; Stop 07/17/18 at 11:46; Status DC Vancomycin HCl 250 ml @ 250 mls/hr 1X PREOP PRN IV PRIOR TO PROCEDURE Last administered on 07/18/18at 09:30; Start 07/18/18 at 06:00; Stop 07/18/18 at 18:00 ; Status DC Ondansetron HCl (Zofran) 4 mg PRN Q6HRS PRN IV NAUSEA/VOMITING; Start 07/18/18 at 06:45; Stop 07/19/18 at 06:44; Status DC Fentanyl Citrate (Fentanyl 2ml Vial) 25 mcg PRN Q5MIN PRN IV MILD PAIN Last administered on 07/18/18at 14:42; Start 07/18/18 at 06:45; Stop 07/19/18 at 06:44 ; Status DC Fentanyl Citrate (Fentanyl 2ml Vial) 50 mcg PRN Q5MIN PRN IV MODERATE TO SEVERE PAIN; Start 07/18/18 at 06:45; Stop 07/19/18 at 06:44; Status DC Ringer's Solution 1,000 ml @ 30 mls/hr Q24H IV Last administered on 07/18/18at 09:39; Start 07/18/18 at 06:31; Stop 07/18/18 at 18:30; Status DC Lidocaine HCl (Xylocaine-Mpf 1% 2ml Vial) 2 ml PRN 1X PRN ID PRIOR TO IV START Last administered on 07/18/18at 09:40; Start 07/18/18 at 06:45; Stop 07/19/18 at 06:44; Status DC Prochlorperazine Edisylate (Compazine) 5 mg PACU PRN PRN IV NAUSEA, MRX1; Start 07/18/18 at 06:45; Stop 07/19/18 at 06:44; Status DC Heparin Sodium (Porcine) 5000 unit/Sodium Chloride 505 ml @ 505 mls/hr 1X ONCE IRR Last administered on 07/18/18at 11:05; Start 07/18/18 at 07:25; Stop at 08:24; Status DC Ropivacaine (Naropin 0.5%) 20 ml STK-MED ONCE .ROUTE ; Start 07/18/18 at 08:54; Stop 07/18/18 at 08:55; Status DC Nicardipine HCl (Cardene) 25 mg STK-MED ONCE IV ; Start 07/18/18 at 09:16; Stop 07/18/18 at 09:17; Status DC Midazolam HCl (Versed) 2 mg STK-MED ONCE .ROUTE ; Start 07/18/18 at 09:17; Stop 07/18/18 at 09:18; Status DC Phenylephrine HCl (Rito-Synephrine Inj) 10 mg STK-MED ONCE .ROUTE ; Start at 09:17; Stop 07/18/18 at 09:18; Status DC Albuterol/ Ipratropium (Duoneb) 3 ml STK-MED ONCE .ROUTE ; Start 07/18/18 at 09: 31; Stop 07/18/18 at 09:32; Status DC Albuterol/ Ipratropium (Duoneb) 3 ml 1X ONCE NEB Last administered on at 09:38; Start 07/18/18 at 09:45; Stop 07/18/18 at 09:46; Status DC Bupivacaine HCl/ Epinephrine Bitart (Sensorcaine-Epi 0.25%-1:[id number] Mpf) 30 ml STK-MED ONCE .ROUTE Last administered on 07/18/18at 10:32; Start 07/18/18 at 08: 37; Stop 07/18/18 at 09:37; Status DC Dexamethasone Sodium Phosphate (Decadron) 20 mg STK-MED ONCE .ROUTE ; Start at 09:44; Stop 07/18/18 at 09:45; Status DC Ondansetron HCl (Zofran) 4 mg STK-MED ONCE .ROUTE ; Start 07/18/18 at 09:44; Stop 07/18/18 at 09:45; Status DC Propofol 20 ml @ As Directed STK-MED ONCE IV ; Start 07/18/18 at 09:44; Stop at 09:45; Status DC Lidocaine HCl (Lidocaine Pf 2% Vial) 5 ml STK-MED ONCE .ROUTE ; Start 07/18/18 at 09:44; Stop 07/18/18 at 09:45; Status DC Rocuronium Piercy (Zemuron) 50 mg STK-MED ONCE .ROUTE ; Start 07/18/18 at 09:44 ; Stop 07/18/18 at 09:45; Status DC Nitroglycerin/ Dextrose 0 ml @ As Directed STK-MED ONCE IV ; Start 07/18/18 at 09:52; Stop 07/18/18 at 09:53; Status DC Glycopyrrolate (Robinul) 1 mg STK-MED ONCE .ROUTE ; Start 07/18/18 at 10:24; Stop 07/18/18 at 10:25; Status DC Heparin Sodium (Porcine) (Heparin Sodium) 10,000 unit STK-MED ONCE .ROUTE ; Start 07/18/18 at 10:58; Stop 07/18/18 at 10:59; Status DC Sodium Chloride (SODIUM CHLORIDE 20ml) 20 ml STK-MED ONCE IJ ; Start 07/18/18 at 10:58; Stop 07/18/18 at 10:59; Status DC Neostigmine Methylsulfate (Bloxiverz) 10 mg STK-MED ONCE .ROUTE ; Start at 11:17; Stop 07/18/18 at 11:18; Status DC Cellulose (Surgicel Hemostat 4x8) 1 each STK-MED ONCE .ROUTE Last administered on 07/18/18at 11:42; Start 07/18/18 at 10:41; Stop 07/18/18 at 11:41; Status DC Flumazenil (Romazicon) 0.5 mg STK-MED ONCE IV ; Start 07/18/18 at 12:16; Stop at 12:17; Status DC Sevoflurane (Ultane) 90 ml STK-MED ONCE IH ; Start 07/18/18 at 12:22; Stop 07/18 at 12:23; Status DC Protamine Sulfate (Protamine) 50 mg STK-MED ONCE IV ; Start 07/18/18 at 12:22; Stop 07/18/18 at 12:23; Status DC Sodium Chloride (Normal Saline Flush) 3 ml QSHIFT PRN IV AFTER MEDS AND BLOOD DRAWS; Start 07/18/18 at 12:30 Sodium Chloride 1,000 ml @ 100 mls/hr Q10H IV ; Start 07/18/18 at 12:24 Hydromorphone HCl (Dilaudid) 0.2 mg PRN Q1HR PRN IV PAIN; Start 07/18/18 at 12: 30; Status UNV Acetaminophen/ Hydrocodone Bitart (Lortab 5/325) 1 tab PRN Q4HRS PRN PO MILD PAIN; Start 07/18/18 at 12:30; Status UNV Acetaminophen (Tylenol) 650 mg Q8HRS PO Last administered on 07/18/18at 21:24; Start 07/18/18 at 14:00; Stop 07/19/18 at 04:04; Status DC Ondansetron HCl (Zofran) 4 mg PRN Q6HRS PRN IV NAUESA, 1ST CHOICE; Start at 12:30 Lidocaine HCl (Lidocaine Pf 2% Vial) 5 ml STK-MED ONCE .ROUTE ; Start 07/18/18 at 12:34; Stop 07/18/18 at 12:35; Status DC Fentanyl Citrate (Fentanyl 2ml Vial) 100 mcg STK-MED ONCE .ROUTE ; Start at 13:13; Stop 07/18/18 at 13:14; Status DC Fentanyl Citrate (Fentanyl 2ml Vial) 50 mcg PRN Q3HRS PRN IV MODERATE PAIN; Start 07/18/18 at 18:30 Fentanyl Citrate (Fentanyl 2ml Vial) 75 mcg PRN Q3HRS PRN IV SEVERE PAIN; Start 07/18/18 at 18:30 Sodium Chloride 750 ml @ 375 mls/hr 1X ONCE IV Last administered on at 19:15; Start 07/18/18 at 19:15; Stop 07/18/18 at 21:14; Status DC Pantoprazole Sodium (Protonix) 40 mg 1X ONCE PO Last administered on at 23:00; Start 07/18/18 at 23:00; Stop 07/18/18 at 23:01; Status DC Active Scripts Active Reported Alprazolam 0.5 Mg Tablet 0.5 Mg PO PRN DAILY PRN Anoro Ellipta 62.5-25 Mcg Inh (Umeclidinium Brm/Vilanterol Tr) 1 Each Disk.w.dev 1 Each IH DAILY Triamcinolone Acetonide 0.1% Oint (Triamcinolone Acetonide) 15 Gm Oint...g. 1 Mayank TP PRN BID MIX WITH EUCERIN DIRECTED BY PHYSICIAN Synthroid (Levothyroxine Sodium) 75 Mcg Tablet 1 Tab PO DAILY B-6 (Pyridoxine HCl (Vitamin B6)) 200 Mg Tablet.er 200 Mg PO DAILY Proair Hfa Inhaler (Albuterol Sulfate) 8.5 Gm Hfa.aer.ad 2 Puff INH PRN Q6HRS PRN Potassium Chloride 20 Meq Tablet.er 99 Mg PO DAILY Protonix (Pantoprazole Sodium) 20 Mg Tablet.dr 40 Mg PO DAILY Fish Oil 1,000 mg Softgel ([place]-3/Dha/Epa/Fish Oil) 1,000 Mg Capsule 1,000 Mg PO DAILY NITROGLYCERIN SubLingual (Nitroglycerin) 0.4 Mg Tab.subl 0.4 Mg SL PRN Q5MIN PRN Multivitamins (Multivitamin) 1 Each Tablet 1 Tab PO DAILY Metoprolol Succinate ( Xl ) (Metoprolol Succinate) 25 Mg Tab.er.24h 25 Mg PO DAILY Namenda (Memantine Hcl) 10 Mg Tablet 10 Mg PO DAILY Lisinopril 10 Mg Tablet 10 Mg PO DAILY Isosorbide Mononitrate Er (Isosorbide Mononitrate) 30 Mg Tab.er.24h 30 Mg PO DAILY Guaifenesin 400 Mg Tablet 400 Mg PO PRN BID Lasix (Furosemide) 20 Mg Tablet 10 Mg PO DAILY Eliquis (Apixaban) 5 Mg Tablet 5 Mg PO BID Cardizem Cd (Diltiazem Hcl) 180 Mg Cap.er.24h 120 Mg PO DAILY Coenzyme Q10 (Ubidecarenone) 10 Mg Capsule 10 Mg PO DAILY Vitamin D (Cholecalciferol (Vitamin D3)) 2,000 Unit Capsule 1 Cap PO DAILY Calcium Carbonate 600 Mg Tablet 1,200 Mg PO TID Lipitor (Atorvastatin Calcium) 40 Mg Tablet 1 Tab PO QHS Aspirin 81 Mg Tab.chew 1 Tab PO DAILY Xanax (Alprazolam) 0.5 Mg Tablet 0.75 Mg PO PRN DAILY PRN Fosamax (Alendronate Sodium) 70 Mg Tablet 1 Tab PO WEEKLY Proair Hfa Inhaler (Albuterol Sulfate) 8.5 Gm Hfa.aer.ad 1 Puff INH PRN Q6HRS PRN Vitals/I & O Vital Sign - Last 24 Hours 07/18/18 07/18/18 07/18/18 07/18/18 12:25 12:40 12:40 12:55 Temp 99.1 99.1 99.1 99.1 99.1 99.1 Pulse 78 76 75 Resp 28 26 24 B/P (MAP) 134/59 125/57 125/57 Pulse Ox 97 97 92 O2 Delivery Simple Mask Simple Mask Mask Nasal Cannula O2 Flow Rate 6 8 6 2 07/18/18 07/18/18 07/18/18 07/18/18 13:10 13:18 13:25 13:31 Temp 99.1 99.1 99.1 99.1 Pulse 72 72 Resp 25 24 24 24 B/P (MAP) 114/50 111/50 Pulse Ox 92 92 94 95 O2 Delivery Nasal Cannula Nasal Cannula Nasal Cannula Nasal Cannula O2 Flow Rate 2 2.0 4 4.0 07/18/18 07/18/18 07/18/18 07/18/18 13:40 13:55 14:10 14:25 Temp 99.1 99.4 99.4 99.4 99.1 99.4 99.4 99.4 Pulse 70 65 64 70 Resp 18 18 20 20 B/P (MAP) 104/48 96/47 102/44 108/48 Pulse Ox 95 95 96 97 O2 Delivery Nasal Cannula Nasal Cannula Nasal Cannula Nasal Cannula O2 Flow Rate 4.0 4.0 4.0 4.0 07/18/18 07/18/18 07/18/18 07/18/18 14:40 14:42 15:00 15:12 Temp 99.4 99.4 Pulse 70 68 Resp 20 20 B/P (MAP) 119/52 108/49 (68) Pulse Ox 97 96 96 O2 Delivery Nasal Cannula Nasal Cannula Nasal Cannula O2 Flow Rate 4.0 4.0 4.0 07/18/18 07/18/18 07/18/18 07/18/18 15:15 15:15 15:30 15:36 Temp 98.0 98.0 Pulse 63 63 62 Resp 22 B/P (MAP) 106/46 (66) 106/46 (66) 107/45 (65) Pulse Ox 97 96 O2 Delivery Nasal Cannula Nasal Cannula O2 Flow Rate 2.0 2.0 07/18/18 07/18/18 07/18/18 07/18/18 15:45 16:45 18:00 19:30 Temp 99.3 99.3 Pulse 65 66 70 75 Resp 22 B/P (MAP) 112/43 (66) 94/35 (54) 93/35 (54) 100/43 (62) Pulse Ox 97 O2 Delivery Nasal Cannula O2 Flow Rate 3.5 07/18/18 07/18/18 07/18/18 07/19/18 20:23 21:34 23:29 03:05 Temp 98.9 98.1 98.9 98.1 Pulse 76 66 Resp 20 20 B/P (MAP) 102/42 (62) 113/53 (73) Pulse Ox 98 96 94 O2 Delivery Mask Nasal Cannula Nasal Cannula O2 Flow Rate 3.5 3.5 2.0 2.0 07/19/18 07/19/18 07/19/18 07/19/18 07:25 07:39 07:48 07:48 Temp 97.3 97.3 Pulse 64 64 64 Resp 20 B/P (MAP) 113/49 (70) 113/49 113/49 Pulse Ox 99 99 O2 Delivery Nasal Cannula Nasal Cannula O2 Flow Rate 2.0 2.0 07/19/18 07/19/18 07/19/18 07:49 07:50 08:00 Pulse 64 64 B/P (MAP) 113/49 113/49 O2 Delivery Room Air Intake and Output 07/18/18 07/18/18 07/19/18 15:00 23:00 07:00 Intake Total 1600 ml 700 ml 440 ml Output Total 150 ml 0 ml Balance 1450 ml 700 ml 440 ml DANY NEGRON MD Jul 19, 2018 09:49
[2018-07-19 11:15] VITALS: BP 113/47
[2018-07-19 15:00] VITALS: BP 111/48
[2018-07-19 19:20] VITALS: BP 127/50
[2018-07-19] MEDS: ATORVASTATIN CALCIUM 40 MG TABLET. PO SCH (21:43)
[2018-07-19] MEDS: MEMANTINE 10 MG TABLET. PO SCH (21:45)
[2018-07-19 23:41] VITALS: BP 114/42
[2018-07-20 03:00] VITALS: BP 120/49
[2018-07-20] MEDS: ALBUTEROL SULFATE 2.5 MG/3 ML NEBU. INH PRN (04:35)
[2018-07-20 04:47] LABS: BASO % 1 % (0-3); EOS # 0.4 x10^3/uL (0.0-0.7); EOS % 5 % (0-3); HEMATOCRIT 26.6 % (36.0-47.0); HEMOGLOBIN 8.7 g/dL (12.0-15.5); LYMPH # 1.7 x10^3/uL (1.0-4.8); LYMPH % 22 % (24-48); MEAN CORPUSCULAR HEMOGLOBIN 31 pg (25-35); MEAN CORPUSCULAR HGB CONC 33 g/dL (31-37); MEAN CORPUSCULAR VOLUME 94 fL (79-100); MONO # 0.8 x10^3/uL (0.0-1.1); MONO % 11 % (0-9); NEUT # 4.5 x10^3uL (1.8-7.7); NEUT % 61 % (31-73); PLATELET COUNT 240 x10^3/uL (140-400); RED BLOOD COUNT 2.82 x10^6/uL (3.50-5.40); RED CELL DISTRIBUTION WIDTH 14.5 % (11.5-14.5); WHITE BLOOD COUNT 7.4 x10^3/uL (4.0-11.0)
[2018-07-20 05:07] LABS: CALCIUM 8.2 mg/dL (8.5-10.1); CREATININE 0.9 mg/dL (0.6-1.0); GFR 61.4; POTASSIUM 4.3 mmol/L (3.5-5.1); TOTAL BILIRUBIN 0.3 mg/dL (0.2-1.0); TOTAL PROTEIN 5.9 g/dL (6.4-8.2)
--- NOTE | 2018-07-20 06:46 | PDOC ---
PULMONARY PROGRESS NOTES Subjective s/p r cea 07/18, on 02, has cough, no pain, no sob Vitals Vital Signs Date Time Temp Pulse Resp B/P (MAP) Pulse Ox O2 Delivery O2 Flow Rate FiO2 07/20/18 05:07 Room Air 07/20/18 04:40 2.0 07/20/18 03:00 98.4 61 18 120/49 (72) 98 98.4 General: Alert, No acute distress HEENT: Other (nc at perrl ) Lungs: Clear Cardiovascular: S1, S2 Abdomen: Soft, Non-tender Neuro Exam: Alert Extremities: No Edema Skin: Warm Labs Laboratory Tests Test 07/18/18 10:52 07/19/18 03:30 07/20/18 04:30 Activated Clotting Time 225 sec (92-181) White Blood Count 10.2 x10^3/uL (4.0-11.0) 7.4 x10^3/uL (4.0-11.0) Red Blood Count 2.79 x10^6/uL (3.50-5.40) 2.82 x10^6/uL (3.50-5.40) Hemoglobin 8.6 g/dL (12.0-15.5) 8.7 g/dL (12.0-15.5) Hematocrit 26.4 % (36.0-47.0) 26.6 % (36.0-47.0) Mean Corpuscular Volume 94 fL (79-100) 94 fL (79-100) Mean Corpuscular Hemoglobin 31 pg (25-35) 31 pg (25-35) Mean Corpuscular Hemoglobin Concent 33 g/dL (31-37) 33 g/dL (31-37) Red Cell Distribution Width 14.7 % (11.5-14.5) 14.5 % (11.5-14.5) Platelet Count 270 x10^3/uL (140-400) 240 x10^3/uL (140-400) Neutrophils (%) (Auto) 79 % (31-73) 61 % (31-73) Lymphocytes (%) (Auto) 10 % (24-48) 22 % (24-48) Monocytes (%) (Auto) 11 % (0-9) 11 % (0-9) Eosinophils (%) (Auto) 0 % (0-3) 5 % (0-3) Basophils (%) (Auto) 0 % (0-3) 1 % (0-3) Neutrophils # (Auto) 8.0 x10^3uL (1.8-7.7) 4.5 x10^3uL (1.8-7.7) Lymphocytes # (Auto) 1.0 x10^3/uL (1.0-4.8) 1.7 x10^3/uL (1.0-4.8) Monocytes # (Auto) 1.1 x10^3/uL (0.0-1.1) 0.8 x10^3/uL (0.0-1.1) Eosinophils # (Auto) 0.0 x10^3/uL (0.0-0.7) 0.4 x10^3/uL (0.0-0.7) Basophils # (Auto) 0.0 x10^3/uL (0.0-0.2) 0.0 x10^3/uL (0.0-0.2) Sodium Level 142 mmol/L (136-145) 143 mmol/L (136-145) Potassium Level 4.1 mmol/L (3.5-5.1) 4.3 mmol/L (3.5-5.1) Chloride Level 104 mmol/L (98-107) 105 mmol/L (98-107) Carbon Dioxide Level 26 mmol/L (21-32) 32 mmol/L (21-32) Anion Gap 12 (6-14) 6 (6-14) Blood Urea Nitrogen 31 mg/dL (7-20) 32 mg/dL (7-20) Creatinine 1.2 mg/dL (0.6-1.0) 0.9 mg/dL (0.6-1.0) Estimated GFR (Cockcroft-Gault) 44.0 61.4 BUN/Creatinine Ratio 26 (6-20) 36 (6-20) Glucose Level 157 mg/dL (70-99) 101 mg/dL (70-99) Calcium Level 8.2 mg/dL (8.5-10.1) 8.2 mg/dL (8.5-10.1) Total Bilirubin 0.4 mg/dL (0.2-1.0) 0.3 mg/dL (0.2-1.0) Aspartate Amino Transf (AST/SGOT) 29 U/L (15-37) 23 U/L (15-37) Alanine Aminotransferase (ALT/SGPT) 30 U/L (14-59) 27 U/L (14-59) Alkaline Phosphatase 63 U/L (46-116) 61 U/L (46-116) Total Protein 5.8 g/dL (6.4-8.2) 5.9 g/dL (6.4-8.2) Albumin 3.0 g/dL (3.4-5.0) 3.0 g/dL (3.4-5.0) Albumin/Globulin Ratio 1.1 (1.0-1.7) 1.0 (1.0-1.7) Laboratory Tests Test 07/20/18 04:30 White Blood Count 7.4 x10^3/uL (4.0-11.0) Red Blood Count 2.82 x10^6/uL (3.50-5.40) Hemoglobin 8.7 g/dL (12.0-15.5) Hematocrit 26.6 % (36.0-47.0) Mean Corpuscular Volume 94 fL (79-100) Mean Corpuscular Hemoglobin 31 pg (25-35) Mean Corpuscular Hemoglobin Concent 33 g/dL (31-37) Red Cell Distribution Width 14.5 % (11.5-14.5) Platelet Count 240 x10^3/uL (140-400) Neutrophils (%) (Auto) 61 % (31-73) Lymphocytes (%) (Auto) 22 % (24-48) Monocytes (%) (Auto) 11 % (0-9) Eosinophils (%) (Auto) 5 % (0-3) Basophils (%) (Auto) 1 % (0-3) Neutrophils # (Auto) 4.5 x10^3uL (1.8-7.7) Lymphocytes # (Auto) 1.7 x10^3/uL (1.0-4.8) Monocytes # (Auto) 0.8 x10^3/uL (0.0-1.1) Eosinophils # (Auto) 0.4 x10^3/uL (0.0-0.7) Basophils # (Auto) 0.0 x10^3/uL (0.0-0.2) Sodium Level 143 mmol/L (136-145) Potassium Level 4.3 mmol/L (3.5-5.1) Chloride Level 105 mmol/L (98-107) Carbon Dioxide Level 32 mmol/L (21-32) Anion Gap 6 (6-14) Blood Urea Nitrogen 32 mg/dL (7-20) Creatinine 0.9 mg/dL (0.6-1.0) Estimated GFR (Cockcroft-Gault) 61.4 BUN/Creatinine Ratio 36 (6-20) Glucose Level 101 mg/dL (70-99) Calcium Level 8.2 mg/dL (8.5-10.1) Total Bilirubin 0.3 mg/dL (0.2-1.0) Aspartate Amino Transf (AST/SGOT) 23 U/L (15-37) Alanine Aminotransferase (ALT/SGPT) 27 U/L (14-59) Alkaline Phosphatase 61 U/L (46-116) Total Protein 5.9 g/dL (6.4-8.2) Albumin 3.0 g/dL (3.4-5.0) Albumin/Globulin Ratio 1.0 (1.0-1.7) Medications Active Scripts Medications Dose Route/Sig Max Daily Dose Days Date Category Dose Instructions Alprazolam 0.5 Mg Tablet 0.5 Mg PO PRN DAILY PRN 07/14/18 Reported Anoro Ellipta 62.5-25 Mcg Inh (Umeclidinium Brm/Vilanterol Tr) 1 Each Disk.w.dev 1 Each IH DAILY 07/10/18 Reported Triamcinolone Acetonide 0.1% Oint (Triamcinolone Acetonide) 15 Gm Oint...g. 1 Mayank TP PRN BID 07/10/18 Reported MIX WITH EUCERIN DIRECTED BY PHYSICIAN Synthroid (Levothyroxine Sodium) 75 Mcg Tablet 1 Tab PO DAILY 07/10/18 Reported B-6 (Pyridoxine HCl (Vitamin B6)) 200 Mg Tablet.er 200 Mg PO DAILY 07/10/18 Reported Proair Hfa Inhaler (Albuterol Sulfate) 8.5 Gm Hfa.aer.ad 2 Puff INH PRN Q6HRS PRN 07/10/18 Reported Potassium Chloride 20 Meq Tablet.er 99 Mg PO DAILY 07/10/18 Reported Protonix (Pantoprazole Sodium) 20 Mg Tablet.dr 40 Mg PO DAILY 07/10/18 Reported Fish Oil 1,000 mg Softgel (Junction-3/Dha/Epa/Fish Oil) 1,000 Mg Capsule 1,000 Mg PO DAILY 07/10/18 Reported NITROGLYCERIN SubLingual (Nitroglycerin) 0.4 Mg Tab.subl 0.4 Mg SL PRN Q5MIN PRN 07/10/18 Reported Multivitamins (Multivitamin) 1 Each Tablet 1 Tab PO DAILY 07/10/18 Reported Metoprolol Succinate ( Xl ) (Metoprolol Succinate) 25 Mg Tab.er.24h 25 Mg PO DAILY 07/10/18 Reported Namenda (Memantine Hcl) 10 Mg Tablet 10 Mg PO DAILY 07/10/18 Reported Lisinopril 10 Mg Tablet 10 Mg PO DAILY 07/10/18 Reported Isosorbide Mononitrate Er (Isosorbide Mononitrate) 30 Mg Tab.er.24h 30 Mg PO DAILY 07/10/18 Reported Guaifenesin 400 Mg Tablet 400 Mg PO PRN BID 07/10/18 Reported Lasix (Furosemide) 20 Mg Tablet 10 Mg PO DAILY 07/10/18 Reported Eliquis (Apixaban) 5 Mg Tablet 5 Mg PO BID 07/10/18 Reported Cardizem Cd (Diltiazem Hcl) 180 Mg Cap.er.24h 120 Mg PO DAILY 07/10/18 Reported Coenzyme Q10 (Ubidecarenone) 10 Mg Capsule 10 Mg PO DAILY 07/10/18 Reported Vitamin D (Cholecalciferol (Vitamin D3)) 2,000 Unit Capsule 1 Cap PO DAILY 07/10/18 Reported Calcium Carbonate 600 Mg Tablet 1,200 Mg PO TID 07/10/18 Reported Lipitor (Atorvastatin Calcium) 40 Mg Tablet 1 Tab PO QHS 07/10/18 Reported Aspirin 81 Mg Tab.chew 1 Tab PO DAILY 07/10/18 Reported Xanax (Alprazolam) 0.5 Mg Tablet 0.75 Mg PO PRN DAILY PRN 07/10/18 Reported Fosamax (Alendronate Sodium) 70 Mg Tablet 1 Tab PO WEEKLY 07/10/18 Reported Proair Hfa Inhaler (Albuterol Sulfate) 8.5 Gm Hfa.aer.ad 1 Puff INH PRN Q6HRS PRN 07/10/18 Reported Impression . 1. Abnormal CT chest with two tiny nodules, 8 mm and 6 mm in the left upper lobe along with parenchymal scarring and less likely nonmalignant. We will need to follow another scan in 4 months due to long history of tobacco use. 2. Oxygen dependent chronic respiratory failure secondary to chronic obstructive pulmonary disease. 3. Secondary pulmonary hypertension. 4. s/p r CEA Plan . 1. 02 titration, BD 2. Repeat CT chest in [address] carr in the office. 3. increase activity Discussed with RN, pt. HUA MURRAY MD Jul 20, 2018 06:46
[2018-07-20] MEDS: PANTOPRAZOLE 40 MG TABLET.DR. PO SCH (07:23)
[2018-07-20] MEDS: LEVOTHYROXINE 100 MCG TABLET PO SCH (07:23)
[2018-07-20 07:30] VITALS: BP 147/55
[2018-07-20] MEDS: ALBUTEROL SULFATE 2.5 MG/3 ML NEBU. NEB SCH ×2 (07:50→11:04)
[2018-07-20] MEDS: METOPROLOL SUCC 24HR ER 25 MG TAB.ER.24H. PO SCH (09:00)
[2018-07-20] MEDS: CALCIUM CARBONATE 500 MG TABLET PO SCH ×2 (09:00→13:18)
[2018-07-20] MEDS: OMEGA-3 FATTY ACIDS/FISH OIL 1,000 MG CAPSULE. PO SCH (09:18)
[2018-07-20] MEDS: LISINOPRIL 10 MG TABLET PO SCH (09:18)
[2018-07-20] MEDS: ANORO ELLIPTA INHALATION INH SCH (09:18)
[2018-07-20] MEDS: FUROSEMIDE 20 MG TABLET PO SCH (09:19)
[2018-07-20] MEDS: CHOLECALCIFEROL (VITAMIN D3) 1,000 UNIT TABLET PO SCH (09:20)
[2018-07-20] MEDS: PYRIDOXINE 50 MG TABLET. PO SCH (09:20)
[2018-07-20] MEDS: ASPIRIN CHEWABLE 81 MG TABLET. PO SCH (09:20)
[2018-07-20] MEDS: MULTIVITAMIN with MINERAL TABLET. PO SCH (09:20)
[2018-07-20] MEDS: ISOSORBIDE MONONITRATE ER 30 MG TAB.ER.24H PO SCH (09:20)
[2018-07-20 10:28] VITALS: BP 133/51
--- NOTE | 2018-07-20 11:04 | PDOC ---
PROGRESS NOTES Subjective Subjective Patient seen and examined in her hospital room today postop day #2 status post right CEA for high-grade symptomatic lesion She has no new complaints, denies any headache, shortness of breath, chest pain. No new localizing neurologic symptoms since the procedure. Today her speech and conversation her back to her baseline Right neck incision is clean dry and intact without hematoma Asymmetric Tongue midline Strong rn ccu bilateral hands Normal ambulation Okay to restart her oral anticoagulation (I believe she is on this for paroxysmal A. fib) per primary team Okay to discharge from a vascular surgery standpointshe'll need follow-up with me in our office in 3-4 weeks with a right carotid duplex Objective Objective Vital Signs Date Time Temp Pulse Resp B/P (MAP) Pulse Ox O2 Delivery O2 Flow Rate FiO2 07/20/18 10:28 98.2 77 18 133/51 (78) 96 Nasal Cannula 2.0 98.2 Intake and Output 07/20/18 07:00 Intake Total 1100 ml Balance 1100 ml Intake Oral 1100 ml # Voids 4 # Bowel Movements 4 Comment Review of Relevant I have reviewed the following items vidal (where applicable) has been applied. Labs Laboratory Tests Test 07/19/18 03:30 07/20/18 04:30 White Blood Count 10.2 x10^3/uL (4.0-11.0) 7.4 x10^3/uL (4.0-11.0) Red Blood Count 2.79 x10^6/uL (3.50-5.40) 2.82 x10^6/uL (3.50-5.40) Hemoglobin 8.6 g/dL (12.0-15.5) 8.7 g/dL (12.0-15.5) Hematocrit 26.4 % (36.0-47.0) 26.6 % (36.0-47.0) Mean Corpuscular Volume 94 fL (79-100) 94 fL (79-100) Mean Corpuscular Hemoglobin 31 pg (25-35) 31 pg (25-35) Mean Corpuscular Hemoglobin Concent 33 g/dL (31-37) 33 g/dL (31-37) Red Cell Distribution Width 14.7 % (11.5-14.5) 14.5 % (11.5-14.5) Platelet Count 270 x10^3/uL (140-400) 240 x10^3/uL (140-400) Neutrophils (%) (Auto) 79 % (31-73) 61 % (31-73) Lymphocytes (%) (Auto) 10 % (24-48) 22 % (24-48) Monocytes (%) (Auto) 11 % (0-9) 11 % (0-9) Eosinophils (%) (Auto) 0 % (0-3) 5 % (0-3) Basophils (%) (Auto) 0 % (0-3) 1 % (0-3) Neutrophils # (Auto) 8.0 x10^3uL (1.8-7.7) 4.5 x10^3uL (1.8-7.7) Lymphocytes # (Auto) 1.0 x10^3/uL (1.0-4.8) 1.7 x10^3/uL (1.0-4.8) Monocytes # (Auto) 1.1 x10^3/uL (0.0-1.1) 0.8 x10^3/uL (0.0-1.1) Eosinophils # (Auto) 0.0 x10^3/uL (0.0-0.7) 0.4 x10^3/uL (0.0-0.7) Basophils # (Auto) 0.0 x10^3/uL (0.0-0.2) 0.0 x10^3/uL (0.0-0.2) Sodium Level 142 mmol/L (136-145) 143 mmol/L (136-145) Potassium Level 4.1 mmol/L (3.5-5.1) 4.3 mmol/L (3.5-5.1) Chloride Level 104 mmol/L (98-107) 105 mmol/L (98-107) Carbon Dioxide Level 26 mmol/L (21-32) 32 mmol/L (21-32) Anion Gap 12 (6-14) 6 (6-14) Blood Urea Nitrogen 31 mg/dL (7-20) 32 mg/dL (7-20) Creatinine 1.2 mg/dL (0.6-1.0) 0.9 mg/dL (0.6-1.0) Estimated GFR (Cockcroft-Gault) 44.0 61.4 BUN/Creatinine Ratio 26 (6-20) 36 (6-20) Glucose Level 157 mg/dL (70-99) 101 mg/dL (70-99) Calcium Level 8.2 mg/dL (8.5-10.1) 8.2 mg/dL (8.5-10.1) Total Bilirubin 0.4 mg/dL (0.2-1.0) 0.3 mg/dL (0.2-1.0) Aspartate Amino Transf (AST/SGOT) 29 U/L (15-37) 23 U/L (15-37) Alanine Aminotransferase (ALT/SGPT) 30 U/L (14-59) 27 U/L (14-59) Alkaline Phosphatase 63 U/L (46-116) 61 U/L (46-116) Total Protein 5.8 g/dL (6.4-8.2) 5.9 g/dL (6.4-8.2) Albumin 3.0 g/dL (3.4-5.0) 3.0 g/dL (3.4-5.0) Albumin/Globulin Ratio 1.1 (1.0-1.7) 1.0 (1.0-1.7) Laboratory Tests Test 07/20/18 04:30 White Blood Count 7.4 x10^3/uL (4.0-11.0) Red Blood Count 2.82 x10^6/uL (3.50-5.40) Hemoglobin 8.7 g/dL (12.0-15.5) Hematocrit 26.6 % (36.0-47.0) Mean Corpuscular Volume 94 fL (79-100) Mean Corpuscular Hemoglobin 31 pg (25-35) Mean Corpuscular Hemoglobin Concent 33 g/dL (31-37) Red Cell Distribution Width 14.5 % (11.5-14.5) Platelet Count 240 x10^3/uL (140-400) Neutrophils (%) (Auto) 61 % (31-73) Lymphocytes (%) (Auto) 22 % (24-48) Monocytes (%) (Auto) 11 % (0-9) Eosinophils (%) (Auto) 5 % (0-3) Basophils (%) (Auto) 1 % (0-3) Neutrophils # (Auto) 4.5 x10^3uL (1.8-7.7) Lymphocytes # (Auto) 1.7 x10^3/uL (1.0-4.8) Monocytes # (Auto) 0.8 x10^3/uL (0.0-1.1) Eosinophils # (Auto) 0.4 x10^3/uL (0.0-0.7) Basophils # (Auto) 0.0 x10^3/uL (0.0-0.2) Sodium Level 143 mmol/L (136-145) Potassium Level 4.3 mmol/L (3.5-5.1) Chloride Level 105 mmol/L (98-107) Carbon Dioxide Level 32 mmol/L (21-32) Anion Gap 6 (6-14) Blood Urea Nitrogen 32 mg/dL (7-20) Creatinine 0.9 mg/dL (0.6-1.0) Estimated GFR (Cockcroft-Gault) 61.4 BUN/Creatinine Ratio 36 (6-20) Glucose Level 101 mg/dL (70-99) Calcium Level 8.2 mg/dL (8.5-10.1) Total Bilirubin 0.3 mg/dL (0.2-1.0) Aspartate Amino Transf (AST/SGOT) 23 U/L (15-37) Alanine Aminotransferase (ALT/SGPT) 27 U/L (14-59) Alkaline Phosphatase 61 U/L (46-116) Total Protein 5.9 g/dL (6.4-8.2) Albumin 3.0 g/dL (3.4-5.0) Albumin/Globulin Ratio 1.0 (1.0-1.7) Medications Current Medications Aspirin (Children'S Aspirin) 324 mg 1X ONCE PO Last administered on 07/10/18at 16:36; Start 07/10/18 at 15:45; Stop 07/10/18 at 16:30; Status DC Albuterol Sulfate (Ventolin Neb Soln) 2.5 mg PRN Q6HRS PRN INH SHORTNESS OF BREATH Last administered on 07/20/18at 04:35; Start 07/10/18 at 19:00 Alprazolam (Xanax) 0.75 mg PRN DAILY PRN PO ANXIETY / AGITATION Last administered on 07/13/18at 21:44; Start 07/10/18 at 19:00; Stop 07/15/18 at 16:17 ; Status DC Apixaban (Eliquis) 5 mg BID PO Last administered on 07/18/18 21:23; Start 07/10 at 21:00; Stop 07/19/18 at 03:44; Status DC Aspirin (Children'S Aspirin) 81 mg DAILY PO Last administered on 07/20/18 09: 20; Start 07/11/18 at 09:00 Atorvastatin Calcium (Lipitor) 40 mg QHS PO Last administered on 07/19/18at 21: 43; Start 07/10/18 at 21:00 Furosemide (Lasix) 10 mg DAILY PO Last administered on 07/20/18 09:19; Start 07/11/18 at 09:00 Isosorbide Mononitrate (Imdur) 30 mg DAILY PO Last administered on 07/20/18 09 :20; Start 07/11/18 at 09:00 Levothyroxine Sodium (Synthroid) 75 mcg DAILY07 PO Last administered on at 06:15; Start 07/11/18 at 07:00; Stop 07/12/18 at 17:17; Status DC Lisinopril (Prinivil) 10 mg DAILY PO Last administered on 07/20/18 09:18; Start 07/11/18 at 09:00 Metoprolol Succinate (Toprol Xl) 25 mg DAILY PO Last administered on 07/19/18at 07:48; Start 07/11/18 at 09:00 Nitroglycerin (Nitrostat) 0.4 mg PRN Q5MIN PRN SL CHEST PAIN; Start 07/10/18 at 19:00 Triamcinolone Acetonide (Kenalog) 1 mayank PRN BID PRN TP RASH; Start 07/10/18 at 19:00 Non-Formulary Medication (Alendronate Sodium (Fosamax)) 1 tab WEEKLY PO ; Start 07/17/18 at 09:00; Status UNV Calcium Carbonate/ Glycine (Oscal) 1,000 mg TIDAFTMEAL PO Last administered on 07/19/18at 18:34; Start 07/11/18 at 09:00 Vitamin D (Vitamin D3) 2,000 unit DAILY PO Last administered on 07/20/18at 09:20 ; Start 07/11/18 at 09:00 Diltiazem HCl (Cardizem 24hr Cd) 120 mg DAILY PO Last administered on 09:21; Start 07/11/18 at 09:00 Guaifenesin (Robitussin) 400 mg PRN BID PRN PO COUGH; Start 07/10/18 at 19:15 Memantine (Namenda) 10 mg DAILY PO ; Start 07/11/18 at 09:00; Stop 07/11/18 at 12: 59; Status DC Multivitamins (Thera M Plus) 1 tab DAILY PO Last administered on 07/20/18 09: 20; Start 07/11/18 at 09:00 Fish Oil (Fish Oil) 1,000 mg DAILY PO Last administered on 07/20/18 09:18; Start 07/11/18 at 09:00 Pantoprazole Sodium (Protonix) 40 mg DAILYAC PO Last administered on 07/20/18 07:23; Start 07/11/18 at 07:30 Non-Formulary Medication (Potassium Chloride ) 99 mg DAILY PO ; Start 07/11/18 at 09:00; Status UNV Pyridoxine HCl (Vitamin B-6) 200 mg DAILY PO Last administered on 07/20/18 09: 20; Start 07/11/18 at 09:00 Non-Formulary Medication (Ubidecarenone (Coenzyme Q10)) 10 mg DAILY PO ; Start 07/11/18 at 09:00; Status UNV Non-Formulary Medication 1 ea DAILY INH Last administered on 07/20/18at 09:18; Start 07/11/18 at 09:00 Info (Anti-Coagulation Monitoring By Pharmacy) 1 each PRN DAILY PRN MC SEE COMMENTS Last administered on 07/18/18at 09:12; Start 07/11/18 at 07:45 Acetaminophen (Tylenol) 650 mg PRN Q6HRS PRN PO TEMP > 100.4F; Start 07/11/18 at 08:45 Acetaminophen (Tylenol Supp) 650 mg PRN Q4HRS PRN RI TEMP > 100.4F; Start at 08:45 Memantine (Namenda) 10 mg QHS PO Last administered on 07/19/18at 21:45; Start at 21:00 Magnesium Hydroxide (Milk Of Magnesia) 2,400 mg PRN DAILY PRN PO CONSTIPATION Last administered on 07/19/18at 07:45; Start 07/12/18 at 14:15 Albuterol Sulfate (Ventolin Neb Soln) 2.5 mg RTQID NEB Last administered on at 07:50; Start 07/12/18 at 20:00 Levothyroxine Sodium (Synthroid) 100 mcg DAILY07 PO Last administered on at 07:23; Start 07/13/18 at 07:00 Iohexol (Omnipaque 350 Mg/ml) 75 ml 1X ONCE IV Last administered on 07/13/18at 07:39; Start 07/13/18 at 07:15; Stop 07/13/18 at 07:16; Status DC Info (CONTRAST GIVEN -- Rx MONITORING) 1 each PRN DAILY PRN MC SEE COMMENTS; Start 07/13/18 at 07:15; Stop 07/15/18 at 07:14; Status DC Magnesium Hydroxide (Milk Of Magnesia) 2,400 mg 1X ONCE PO Last administered on 07/13/18at 12:36; Start 07/13/18 at 11:00; Stop 07/13/18 at 11:01; Status DC Alprazolam (Xanax) 0.25 mg PRN Q8HRS PRN PO ANXIETY / AGITATION Last administered on 07/19/18at 21:45; Start 07/14/18 at 17:15 Lidocaine/Sodium Bicarbonate (Buffered Lidocaine 1%) 3 ml STK-MED ONCE .ROUTE ; Start 07/15/18 at 13:13; Stop 07/15/18 at 13:14; Status DC Iohexol (Omnipaque 300 Mg/ml) 100 ml STK-MED ONCE .ROUTE ; Start 07/15/18 at 13: 13; Stop 07/15/18 at 13:14; Status DC Heparin Sodium/ Sodium Chloride 1,000 ml @ As Directed STK-MED ONCE .ROUTE ; Start 07/15/18 at 13:14; Stop 07/15/18 at 13:15; Status DC Pantoprazole Sodium (Protonix) 40 mg 1X ONCE PO Last administered on at 19:51; Start 07/16/18 at 19:30; Stop 07/16/18 at 19:31; Status DC Iohexol (Omnipaque 240 Mg/ml) 100 ml STK-MED ONCE .ROUTE ; Start 07/17/18 at 09: 43; Stop 07/17/18 at 09:44; Status DC Lidocaine/Sodium Bicarbonate (Buffered Lidocaine 1%) 3 ml STK-MED ONCE .ROUTE ; Start 07/17/18 at 09:44; Stop 07/17/18 at 09:45; Status DC Heparin Sodium/ Sodium Chloride 500 ml @ As Directed STK-MED ONCE .ROUTE ; Start 07/17/18 at 09:44; Stop 07/17/18 at 09:45; Status DC Midazolam HCl (Versed) 2 mg STK-MED ONCE .ROUTE ; Start 07/17/18 at 10:47; Stop 07/17/18 at 10:48; Status DC Fentanyl Citrate (Fentanyl 2ml Vial) 100 mcg STK-MED ONCE .ROUTE ; Start at 10:47; Stop 07/17/18 at 10:48; Status DC Iohexol (Omnipaque 240 Mg/ml) 100 ml STK-MED ONCE .ROUTE ; Start 07/17/18 at 10: 51; Stop 07/17/18 at 10:52; Status DC Heparin Sodium/ Sodium Chloride (HEPARIN for ARTERIAL LINE FLUSH) 1,000 unit 1X ONCE IART Last administered on 07/17/18at 11:45; Start 07/17/18 at 11:45; Stop 07/17/18 at 11:46; Status DC Lidocaine/Sodium Bicarbonate (Buffered Lidocaine 1%) 3 ml 1X ONCE IJ Last administered on 07/17/18at 11:58; Start 07/17/18 at 11:45; Stop 07/17/18 at 11:46 ; Status DC Midazolam HCl (Versed) 2 mg 1X ONCE IV Last administered on 07/17/18at 11:59; Start 07/17/18 at 11:45; Stop 07/17/18 at 11:46; Status DC Fentanyl Citrate (Fentanyl 2ml Vial) 100 mcg 1X ONCE IV Last administered on at 11:59; Start 07/17/18 at 11:45; Stop 07/17/18 at 11:46; Status DC Iohexol (Omnipaque 240 Mg/ml) 100 ml 1X ONCE INT ART Last administered on 07/17at 11:58; Start 07/17/18 at 11:45; Stop 07/17/18 at 11:46; Status DC Vancomycin HCl 250 ml @ 250 mls/hr 1X PREOP PRN IV PRIOR TO PROCEDURE Last administered on 07/18/18at 09:30; Start 07/18/18 at 06:00; Stop 07/18/18 at 18:00 ; Status DC Ondansetron HCl (Zofran) 4 mg PRN Q6HRS PRN IV NAUSEA/VOMITING; Start 07/18/18 at 06:45; Stop 07/19/18 at 06:44; Status DC Fentanyl Citrate (Fentanyl 2ml Vial) 25 mcg PRN Q5MIN PRN IV MILD PAIN Last administered on 07/18/18at 14:42; Start 07/18/18 at 06:45; Stop 07/19/18 at 06:44 ; Status DC Fentanyl Citrate (Fentanyl 2ml Vial) 50 mcg PRN Q5MIN PRN IV MODERATE TO SEVERE PAIN; Start 07/18/18 at 06:45; Stop 07/19/18 at 06:44; Status DC Ringer's Solution 1,000 ml @ 30 mls/hr Q24H IV Last administered on 07/18/18at 09:39; Start 07/18/18 at 06:31; Stop 07/18/18 at 18:30; Status DC Lidocaine HCl (Xylocaine-Mpf 1% 2ml Vial) 2 ml PRN 1X PRN ID PRIOR TO IV START Last administered on 07/18/18at 09:40; Start 07/18/18 at 06:45; Stop 07/19/18 at 06:44; Status DC Prochlorperazine Edisylate (Compazine) 5 mg PACU PRN PRN IV NAUSEA, MRX1; Start 07/18/18 at 06:45; Stop 07/19/18 at 06:44; Status DC Heparin Sodium (Porcine) 5000 unit/Sodium Chloride 505 ml @ 505 mls/hr 1X ONCE IRR Last administered on 07/18/18at 11:05; Start 07/18/18 at 07:25; Stop at 08:24; Status DC Ropivacaine (Naropin 0.5%) 20 ml STK-MED ONCE .ROUTE ; Start 07/18/18 at 08:54; Stop 07/18/18 at 08:55; Status DC Nicardipine HCl (Cardene) 25 mg STK-MED ONCE IV ; Start 07/18/18 at 09:16; Stop 07/18/18 at 09:17; Status DC Midazolam HCl (Versed) 2 mg STK-MED ONCE .ROUTE ; Start 07/18/18 at 09:17; Stop 07/18/18 at 09:18; Status DC Phenylephrine HCl (Rito-Synephrine Inj) 10 mg STK-MED ONCE .ROUTE ; Start at 09:17; Stop 07/18/18 at 09:18; Status DC Albuterol/ Ipratropium (Duoneb) 3 ml STK-MED ONCE .ROUTE ; Start 07/18/18 at 09: 31; Stop 07/18/18 at 09:32; Status DC Albuterol/ Ipratropium (Duoneb) 3 ml 1X ONCE NEB Last administered on at 09:38; Start 07/18/18 at 09:45; Stop 07/18/18 at 09:46; Status DC Bupivacaine HCl/ Epinephrine Bitart (Sensorcaine-Epi 0.25%-1:[id number] Mpf) 30 ml STK-MED ONCE .ROUTE Last administered on 07/18/18at 10:32; Start 07/18/18 at 08: 37; Stop 07/18/18 at 09:37; Status DC Dexamethasone Sodium Phosphate (Decadron) 20 mg STK-MED ONCE .ROUTE ; Start at 09:44; Stop 07/18/18 at 09:45; Status DC Ondansetron HCl (Zofran) 4 mg STK-MED ONCE .ROUTE ; Start 07/18/18 at 09:44; Stop 07/18/18 at 09:45; Status DC Propofol 20 ml @ As Directed STK-MED ONCE IV ; Start 07/18/18 at 09:44; Stop at 09:45; Status DC Lidocaine HCl (Lidocaine Pf 2% Vial) 5 ml STK-MED ONCE .ROUTE ; Start 07/18/18 at 09:44; Stop 07/18/18 at 09:45; Status DC Rocuronium [place] (Zemuron) 50 mg STK-MED ONCE .ROUTE ; Start 07/18/18 at 09:44 ; Stop 07/18/18 at 09:45; Status DC Nitroglycerin/ Dextrose 0 ml @ As Directed STK-MED ONCE IV ; Start 07/18/18 at 09:52; Stop 07/18/18 at 09:53; Status DC Glycopyrrolate (Robinul) 1 mg STK-MED ONCE .ROUTE ; Start 07/18/18 at 10:24; Stop 07/18/18 at 10:25; Status DC Heparin Sodium (Porcine) (Heparin Sodium) 10,000 unit STK-MED ONCE .ROUTE ; Start 07/18/18 at 10:58; Stop 07/18/18 at 10:59; Status DC Sodium Chloride (SODIUM CHLORIDE 20ml) 20 ml STK-MED ONCE IJ ; Start 07/18/18 at 10:58; Stop 07/18/18 at 10:59; Status DC Neostigmine Methylsulfate (Bloxiverz) 10 mg STK-MED ONCE .ROUTE ; Start at 11:17; Stop 07/18/18 at 11:18; Status DC Cellulose (Surgicel Hemostat 4x8) 1 each STK-MED ONCE .ROUTE Last administered on 07/18/18at 11:42; Start 07/18/18 at 10:41; Stop 07/18/18 at 11:41; Status DC Flumazenil (Romazicon) 0.5 mg STK-MED ONCE IV ; Start 07/18/18 at 12:16; Stop at 12:17; Status DC Sevoflurane (Ultane) 90 ml STK-MED ONCE IH ; Start 07/18/18 at 12:22; Stop 07/18 at 12:23; Status DC Protamine Sulfate (Protamine) 50 mg STK-MED ONCE IV ; Start 07/18/18 at 12:22; Stop 07/18/18 at 12:23; Status DC Sodium Chloride (Normal Saline Flush) 3 ml QSHIFT PRN IV AFTER MEDS AND BLOOD DRAWS; Start 07/18/18 at 12:30 Sodium Chloride 1,000 ml @ 100 mls/hr Q10H IV ; Start 07/18/18 at 12:24; Stop 07/19/18 at 15:40; Status DC Hydromorphone HCl (Dilaudid) 0.2 mg PRN Q1HR PRN IV PAIN; Start 07/18/18 at 12: 30; Status UNV Acetaminophen/ Hydrocodone Bitart (Lortab 5/325) 1 tab PRN Q4HRS PRN PO MILD PAIN; Start 07/18/18 at 12:30; Status UNV Acetaminophen (Tylenol) 650 mg Q8HRS PO Last administered on 07/18/18at 21:24; Start 07/18/18 at 14:00; Stop 07/19/18 at 04:04; Status DC Ondansetron HCl (Zofran) 4 mg PRN Q6HRS PRN IV NAUESA, 1ST CHOICE; Start at 12:30 Lidocaine HCl (Lidocaine Pf 2% Vial) 5 ml STK-MED ONCE .ROUTE ; Start 07/18/18 at 12:34; Stop 07/18/18 at 12:35; Status DC Fentanyl Citrate (Fentanyl 2ml Vial) 100 mcg STK-MED ONCE .ROUTE ; Start at 13:13; Stop 07/18/18 at 13:14; Status DC Fentanyl Citrate (Fentanyl 2ml Vial) 50 mcg PRN Q3HRS PRN IV MODERATE PAIN; Start 07/18/18 at 18:30 Fentanyl Citrate (Fentanyl 2ml Vial) 75 mcg PRN Q3HRS PRN IV SEVERE PAIN; Start 07/18/18 at 18:30 Sodium Chloride 750 ml @ 375 mls/hr 1X ONCE IV Last administered on at 19:15; Start 07/18/18 at 19:15; Stop 07/18/18 at 21:14; Status DC Pantoprazole Sodium (Protonix) 40 mg 1X ONCE PO Last administered on at 23:00; Start 07/18/18 at 23:00; Stop 07/18/18 at 23:01; Status DC Active Scripts Active Reported Alprazolam 0.5 Mg Tablet 0.5 Mg PO PRN DAILY PRN Anoro Ellipta 62.5-25 Mcg Inh (Umeclidinium Brm/Vilanterol Tr) 1 Each Disk.w.dev 1 Each IH DAILY Triamcinolone Acetonide 0.1% Oint (Triamcinolone Acetonide) 15 Gm Oint...g. 1 Mayank TP PRN BID MIX WITH EUCERIN DIRECTED BY PHYSICIAN Synthroid (Levothyroxine Sodium) 75 Mcg Tablet 1 Tab PO DAILY B-6 (Pyridoxine HCl (Vitamin B6)) 200 Mg Tablet.er 200 Mg PO DAILY Proair Hfa Inhaler (Albuterol Sulfate) 8.5 Gm Hfa.aer.ad 2 Puff INH PRN Q6HRS PRN Potassium Chloride 20 Meq Tablet.er 99 Mg PO DAILY Protonix (Pantoprazole Sodium) 20 Mg Tablet.dr 40 Mg PO DAILY Fish Oil 1,000 mg Softgel (Sultana-3/Dha/Epa/Fish Oil) 1,000 Mg Capsule 1,000 Mg PO DAILY NITROGLYCERIN SubLingual (Nitroglycerin) 0.4 Mg Tab.subl 0.4 Mg SL PRN Q5MIN PRN Multivitamins (Multivitamin) 1 Each Tablet 1 Tab PO DAILY Metoprolol Succinate ( Xl ) (Metoprolol Succinate) 25 Mg Tab.er.24h 25 Mg PO DAILY Namenda (Memantine Hcl) 10 Mg Tablet 10 Mg PO DAILY Lisinopril 10 Mg Tablet 10 Mg PO DAILY Isosorbide Mononitrate Er (Isosorbide Mononitrate) 30 Mg Tab.er.24h 30 Mg PO DAILY Guaifenesin 400 Mg Tablet 400 Mg PO PRN BID Lasix (Furosemide) 20 Mg Tablet 10 Mg PO DAILY Eliquis (Apixaban) 5 Mg Tablet 5 Mg PO BID Cardizem Cd (Diltiazem Hcl) 180 Mg Cap.er.24h 120 Mg PO DAILY Coenzyme Q10 (Ubidecarenone) 10 Mg Capsule 10 Mg PO DAILY Vitamin D (Cholecalciferol (Vitamin D3)) 2,000 Unit Capsule 1 Cap PO DAILY Calcium Carbonate 600 Mg Tablet 1,200 Mg PO TID Lipitor (Atorvastatin Calcium) 40 Mg Tablet 1 Tab PO QHS Aspirin 81 Mg Tab.chew 1 Tab PO DAILY Xanax (Alprazolam) 0.5 Mg Tablet 0.75 Mg PO PRN DAILY PRN Fosamax (Alendronate Sodium) 70 Mg Tablet 1 Tab PO WEEKLY Proair Hfa Inhaler (Albuterol Sulfate) 8.5 Gm Hfa.aer.ad 1 Puff INH PRN Q6HRS PRN Vitals/I & O Vital Sign - Last 24 Hours 07/19/18 07/19/18 07/19/18 07/19/18 11:15 11:46 15:00 15:46 Temp 98.6 98.0 98.6 98.0 Pulse 76 66 Resp 16 18 B/P (MAP) 113/47 (69) 111/48 (69) Pulse Ox 94 100 O2 Delivery Room Air Nasal Cannula Nasal Cannula Nasal Cannula O2 Flow Rate 2.0 2.0 2.0 07/19/18 07/19/18 07/19/18 07/19/18 19:20 20:00 20:02 23:41 Temp 98.1 98.4 98.1 98.4 Pulse 64 59 Resp 17 20 B/P (MAP) 127/50 (75) 114/42 (66) Pulse Ox 98 96 98 O2 Delivery Nasal Cannula Room Air Nasal Cannula Nasal Cannula O2 Flow Rate 2.0 2.0 2.0 07/20/18 07/20/18 07/20/18 07/20/18 03:00 04:40 05:07 07:30 Temp 98.4 98.0 98.4 98.0 Pulse 61 64 Resp 18 18 B/P (MAP) 120/49 (72) 147/55 (85) Pulse Ox 98 97 O2 Delivery Nasal Cannula Nasal Cannula Room Air Nasal Cannula O2 Flow Rate 2.0 2.0 2.0 07/20/18 07/20/18 07/20/18 07/20/18 07:50 08:00 09:18 09:20 Pulse 64 64 B/P (MAP) 147/55 147/55 Pulse Ox 97 O2 Delivery Nasal Cannula Room Air O2 Flow Rate 2.0 2.0 07/20/18 07/20/18 09:21 10:28 Temp 98.2 98.2 Pulse 64 77 Resp 18 B/P (MAP) 147/55 133/51 (78) Pulse Ox 96 O2 Delivery Nasal Cannula O2 Flow Rate 2.0 Intake and Output 07/19/18 07/19/18 07/20/18 15:00 23:00 07:00 Intake Total 840 ml 260 ml Balance 840 ml 260 ml DANY NEGRON MD Jul 20, 2018 11:04
--- NOTE | 2018-07-20 11:13 | PDOC ---
PROGRESS NOTES Chief Complaint Chief Complaint IMPRESSION Speech Difficulty Confusion TO DETAILS MAY BE SEC TO carotid disease, multifactorial Small round lucencies of the calvarium are seen measuring less than 1 cm in size. This may be secondary to senile osteoporosis although could also be seen with multiple myeloma if there is a history of such. CVA? Memory loss- Dementia MOD, MORE CONFUSION ON VISIT 07/19 COPD FH of CAD Former smoker Occlusion or severe 99 percent stenosis of the right internal carotid artery with slow flow. 07/[address] ANGIOGRAM TODAY, PT WANTS TO GO HOME ALONE, HIGH RISK D/C LIVES ALONE WILL CONSULT PAT 07/[address] ANGIOGRAPHY OF NECK AND BRAIN TODAY PLANNED 07/17 SURGERY LATER TODAY, HIGH RIS OF COMPLICATIONS per my chart review 07/19 MORE CONFUSED ABOVE BASELINE, PLAN SNF BED PLACEMENT History of Present Illness History of Present Illness Ms Jimenez is a 73 yo F who was admitted for confusion/difficulty speaking, PMH COPD and former smoker She was seen and examined in her room this morning, NAD less expressive aphasia, completed thoughts , not completely She states that when her anxiety increases, her ability to express her thoughts decreases Discussed her medications, treatments, and her concerns at length Discussed with RN 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 This is nonspecific and could be related to acute or chronic bronchial inflammatory process or chronic aspiration. CTA neck was reviewed with , occlusion vs a string sign -- Dx angiogram / icritical stenosis of the right ICA approx 2 cm distal to bifurcation. CEA Dr Perkins. 07/18 UNDERSTANDS RISK OF CVA OR WITH HIGH RISK SURGERY 07/17 plan serum protein immuno - electrophoresis complex decision making involved, care coordination 48 min > 50% in pt care and record review, pt exam, face to face care Vitals Vitals Vital Signs Date Time Temp Pulse Resp B/P (MAP) Pulse Ox O2 Delivery O2 Flow Rate FiO2 07/20/18 11:05 97 Nasal Cannula 2.0 07/20/18 10:28 98.2 77 18 133/51 (78) 98.2 Physical Exam Physical Exam DELAYED,// INCOMPLETE RESPONSE TO QUESTIONS General: Alert, Oriented X3, Cooperative, No acute distress, mild distress Heart: Regular rate, Normal S1, No murmurs, Other (prominent L sided carotid bruit) Lungs: Clear Abdomen: Normal bowel sounds, Soft, Other (supraumbilical ventral hernia) Extremities: No clubbing, No cyanosis, No edema Skin: No rashes, No breakdown, No significant lesion, Other (INCISION LOOKS GOOD, DRY) Labs LABS Laboratory Tests Test 07/20/18 04:30 White Blood Count 7.4 x10^3/uL (4.0-11.0) Red Blood Count 2.82 x10^6/uL (3.50-5.40) Hemoglobin 8.7 g/dL (12.0-15.5) Hematocrit 26.6 % (36.0-47.0) Mean Corpuscular Volume 94 fL (79-100) Mean Corpuscular Hemoglobin 31 pg (25-35) Mean Corpuscular Hemoglobin Concent 33 g/dL (31-37) Red Cell Distribution Width 14.5 % (11.5-14.5) Platelet Count 240 x10^3/uL (140-400) Neutrophils (%) (Auto) 61 % (31-73) Lymphocytes (%) (Auto) 22 % (24-48) Monocytes (%) (Auto) 11 % (0-9) Eosinophils (%) (Auto) 5 % (0-3) Basophils (%) (Auto) 1 % (0-3) Neutrophils # (Auto) 4.5 x10^3uL (1.8-7.7) Lymphocytes # (Auto) 1.7 x10^3/uL (1.0-4.8) Monocytes # (Auto) 0.8 x10^3/uL (0.0-1.1) Eosinophils # (Auto) 0.4 x10^3/uL (0.0-0.7) Basophils # (Auto) 0.0 x10^3/uL (0.0-0.2) Sodium Level 143 mmol/L (136-145) Potassium Level 4.3 mmol/L (3.5-5.1) Chloride Level 105 mmol/L (98-107) Carbon Dioxide Level 32 mmol/L (21-32) Anion Gap 6 (6-14) Blood Urea Nitrogen 32 mg/dL (7-20) Creatinine 0.9 mg/dL (0.6-1.0) Estimated GFR (Cockcroft-Gault) 61.4 BUN/Creatinine Ratio 36 (6-20) Glucose Level 101 mg/dL (70-99) Calcium Level 8.2 mg/dL (8.5-10.1) Total Bilirubin 0.3 mg/dL (0.2-1.0) Aspartate Amino Transf (AST/SGOT) 23 U/L (15-37) Alanine Aminotransferase (ALT/SGPT) 27 U/L (14-59) Alkaline Phosphatase 61 U/L (46-116) Total Protein 5.9 g/dL (6.4-8.2) Albumin 3.0 g/dL (3.4-5.0) Albumin/Globulin Ratio 1.0 (1.0-1.7) Review of Systems Review of Systems Ambulation Comments * no loss of balance noted Other Information * Pt amb indep on unit with no loss of balance observed. No further PT is indicated. No followup planned. Communicated Patient Care With (Name, Title) * Meenakshi KYLE Goal 1 - Bed Mobility Assistance Required * Independent Goal 1 Assessment * Goal Met Goal 2 - Transfers Assistance Required * Independent Goal 2 - Transfer Type * Sit to Stand Goal 2 Assessment * Goal Met Goal 3 - Ambulation Assistance Required * Independent Goal 3 - Ambulation Distance * 250' Goal 3 - Ambulation Device * No Device Goal 3 Assessment * Discontinue Frequency of Treatment Expected * 6 visits/week No Further Skilled P.T. Intervention Required * Instruction Completed Discharge Recommendations * Home independent * Home with Home Health Discharge Recommendation Comments * Home with ; consider AL in future Comment Review of Relevant I have reviewed the following items vidal (where applicable) has been applied. Labs Laboratory Tests Test 07/19/18 03:30 07/20/18 04:30 White Blood Count 10.2 x10^3/uL (4.0-11.0) 7.4 x10^3/uL (4.0-11.0) Red Blood Count 2.79 x10^6/uL (3.50-5.40) 2.82 x10^6/uL (3.50-5.40) Hemoglobin 8.6 g/dL (12.0-15.5) 8.7 g/dL (12.0-15.5) Hematocrit 26.4 % (36.0-47.0) 26.6 % (36.0-47.0) Mean Corpuscular Volume 94 fL (79-100) 94 fL (79-100) Mean Corpuscular Hemoglobin 31 pg (25-35) 31 pg (25-35) Mean Corpuscular Hemoglobin Concent 33 g/dL (31-37) 33 g/dL (31-37) Red Cell Distribution Width 14.7 % (11.5-14.5) 14.5 % (11.5-14.5) Platelet Count 270 x10^3/uL (140-400) 240 x10^3/uL (140-400) Neutrophils (%) (Auto) 79 % (31-73) 61 % (31-73) Lymphocytes (%) (Auto) 10 % (24-48) 22 % (24-48) Monocytes (%) (Auto) 11 % (0-9) 11 % (0-9) Eosinophils (%) (Auto) 0 % (0-3) 5 % (0-3) Basophils (%) (Auto) 0 % (0-3) 1 % (0-3) Neutrophils # (Auto) 8.0 x10^3uL (1.8-7.7) 4.5 x10^3uL (1.8-7.7) Lymphocytes # (Auto) 1.0 x10^3/uL (1.0-4.8) 1.7 x10^3/uL (1.0-4.8) Monocytes # (Auto) 1.1 x10^3/uL (0.0-1.1) 0.8 x10^3/uL (0.0-1.1) Eosinophils # (Auto) 0.0 x10^3/uL (0.0-0.7) 0.4 x10^3/uL (0.0-0.7) Basophils # (Auto) 0.0 x10^3/uL (0.0-0.2) 0.0 x10^3/uL (0.0-0.2) Sodium Level 142 mmol/L (136-145) 143 mmol/L (136-145) Potassium Level 4.1 mmol/L (3.5-5.1) 4.3 mmol/L (3.5-5.1) Chloride Level 104 mmol/L (98-107) 105 mmol/L (98-107) Carbon Dioxide Level 26 mmol/L (21-32) 32 mmol/L (21-32) Anion Gap 12 (6-14) 6 (6-14) Blood Urea Nitrogen 31 mg/dL (7-20) 32 mg/dL (7-20) Creatinine 1.2 mg/dL (0.6-1.0) 0.9 mg/dL (0.6-1.0) Estimated GFR (Cockcroft-Gault) 44.0 61.4 BUN/Creatinine Ratio 26 (6-20) 36 (6-20) Glucose Level 157 mg/dL (70-99) 101 mg/dL (70-99) Calcium Level 8.2 mg/dL (8.5-10.1) 8.2 mg/dL (8.5-10.1) Total Bilirubin 0.4 mg/dL (0.2-1.0) 0.3 mg/dL (0.2-1.0) Aspartate Amino Transf (AST/SGOT) 29 U/L (15-37) 23 U/L (15-37) Alanine Aminotransferase (ALT/SGPT) 30 U/L (14-59) 27 U/L (14-59) Alkaline Phosphatase 63 U/L (46-116) 61 U/L (46-116) Total Protein 5.8 g/dL (6.4-8.2) 5.9 g/dL (6.4-8.2) Albumin 3.0 g/dL (3.4-5.0) 3.0 g/dL (3.4-5.0) Albumin/Globulin Ratio 1.1 (1.0-1.7) 1.0 (1.0-1.7) Laboratory Tests Test 07/20/18 04:30 White Blood Count 7.4 x10^3/uL (4.0-11.0) Red Blood Count 2.82 x10^6/uL (3.50-5.40) Hemoglobin 8.7 g/dL (12.0-15.5) Hematocrit 26.6 % (36.0-47.0) Mean Corpuscular Volume 94 fL (79-100) Mean Corpuscular Hemoglobin 31 pg (25-35) Mean Corpuscular Hemoglobin Concent 33 g/dL (31-37) Red Cell Distribution Width 14.5 % (11.5-14.5) Platelet Count 240 x10^3/uL (140-400) Neutrophils (%) (Auto) 61 % (31-73) Lymphocytes (%) (Auto) 22 % (24-48) Monocytes (%) (Auto) 11 % (0-9) Eosinophils (%) (Auto) 5 % (0-3) Basophils (%) (Auto) 1 % (0-3) Neutrophils # (Auto) 4.5 x10^3uL (1.8-7.7) Lymphocytes # (Auto) 1.7 x10^3/uL (1.0-4.8) Monocytes # (Auto) 0.8 x10^3/uL (0.0-1.1) Eosinophils # (Auto) 0.4 x10^3/uL (0.0-0.7) Basophils # (Auto) 0.0 x10^3/uL (0.0-0.2) Sodium Level 143 mmol/L (136-145) Potassium Level 4.3 mmol/L (3.5-5.1) Chloride Level 105 mmol/L (98-107) Carbon Dioxide Level 32 mmol/L (21-32) Anion Gap 6 (6-14) Blood Urea Nitrogen 32 mg/dL (7-20) Creatinine 0.9 mg/dL (0.6-1.0) Estimated GFR (Cockcroft-Gault) 61.4 BUN/Creatinine Ratio 36 (6-20) Glucose Level 101 mg/dL (70-99) Calcium Level 8.2 mg/dL (8.5-10.1) Total Bilirubin 0.3 mg/dL (0.2-1.0) Aspartate Amino Transf (AST/SGOT) 23 U/L (15-37) Alanine Aminotransferase (ALT/SGPT) 27 U/L (14-59) Alkaline Phosphatase 61 U/L (46-116) Total Protein 5.9 g/dL (6.4-8.2) Albumin 3.0 g/dL (3.4-5.0) Albumin/Globulin Ratio 1.0 (1.0-1.7) Medications Current Medications Aspirin (Children'S Aspirin) 324 mg 1X ONCE PO Last administered on 07/10/18at 16:36; Start 07/10/18 at 15:45; Stop 07/10/18 at 16:30; Status DC Albuterol Sulfate (Ventolin Neb Soln) 2.5 mg PRN Q6HRS PRN INH SHORTNESS OF BREATH Last administered on 07/20/18at 04:35; Start 07/10/18 at 19:00 Alprazolam (Xanax) 0.75 mg PRN DAILY PRN PO ANXIETY / AGITATION Last administered on 07/13/18at 21:44; Start 07/10/18 at 19:00; Stop 07/15/18 at 16:17 ; Status DC Apixaban (Eliquis) 5 mg BID PO Last administered on 07/18/18 21:23; Start 07/10 at 21:00; Stop 07/19/18 at 03:44; Status DC Aspirin (Children'S Aspirin) 81 mg DAILY PO Last administered on 07/20/18 09: 20; Start 07/11/18 at 09:00 Atorvastatin Calcium (Lipitor) 40 mg QHS PO Last administered on 07/19/18at 21: 43; Start 07/10/18 at 21:00 Furosemide (Lasix) 10 mg DAILY PO Last administered on 07/20/18at 09:19; Start 07/11/18 at 09:00 Isosorbide Mononitrate (Imdur) 30 mg DAILY PO Last administered on 07/20/18 09 :20; Start 07/11/18 at 09:00 Levothyroxine Sodium (Synthroid) 75 mcg DAILY07 PO Last administered on 06:15; Start 07/11/18 at 07:00; Stop 07/12/18 at 17:17; Status DC Lisinopril (Prinivil) 10 mg DAILY PO Last administered on 07/20/18at 09:18; Start 07/11/18 at 09:00 Metoprolol Succinate (Toprol Xl) 25 mg DAILY PO Last administered on 07/19/18at 07:48; Start 07/11/18 at 09:00 Nitroglycerin (Nitrostat) 0.4 mg PRN Q5MIN PRN SL CHEST PAIN; Start 07/10/18 at 19:00 Triamcinolone Acetonide (Kenalog) 1 mayank PRN BID PRN TP RASH; Start 07/10/18 at 19:00 Non-Formulary Medication (Alendronate Sodium (Fosamax)) 1 tab WEEKLY PO ; Start 07/17/18 at 09:00; Status UNV Calcium Carbonate/ Glycine (Oscal) 1,000 mg TIDAFTMEAL PO Last administered on 07/19/18 18:34; Start 07/11/18 at 09:00 Vitamin D (Vitamin D3) 2,000 unit DAILY PO Last administered on 07/20/18 09:20 ; Start 07/11/18 at 09:00 Diltiazem HCl (Cardizem 24hr Cd) 120 mg DAILY PO Last administered on 09:21; Start 07/11/18 at 09:00 Guaifenesin (Robitussin) 400 mg PRN BID PRN PO COUGH; Start 07/10/18 at 19:15 Memantine (Namenda) 10 mg DAILY PO ; Start 07/11/18 at 09:00; Stop 07/11/18 at 12: 59; Status DC Multivitamins (Thera M Plus) 1 tab DAILY PO Last administered on 07/20/18 09: 20; Start 07/11/18 at 09:00 Fish Oil (Fish Oil) 1,000 mg DAILY PO Last administered on 07/20/18 09:18; Start 07/11/18 at 09:00 Pantoprazole Sodium (Protonix) 40 mg DAILYAC PO Last administered on 07/20/18 07:23; Start 07/11/18 at 07:30 Non-Formulary Medication (Potassium Chloride ) 99 mg DAILY PO ; Start 07/11/18 at 09:00; Status UNV Pyridoxine HCl (Vitamin B-6) 200 mg DAILY PO Last administered on 07/20/18 09: 20; Start 07/11/18 at 09:00 Non-Formulary Medication (Ubidecarenone (Coenzyme Q10)) 10 mg DAILY PO ; Start 07/11/18 at 09:00; Status UNV Non-Formulary Medication 1 ea DAILY INH Last administered on 07/20/18 09:18; Start 07/11/18 at 09:00 Info (Anti-Coagulation Monitoring By Pharmacy) 1 each PRN DAILY PRN MC SEE COMMENTS Last administered on 07/18/18 09:12; Start 07/11/18 at 07:45 Acetaminophen (Tylenol) 650 mg PRN Q6HRS PRN PO TEMP > 100.4F; Start 07/11/18 at 08:45 Acetaminophen (Tylenol Supp) 650 mg PRN Q4HRS PRN MI TEMP > 100.4F; Start at 08:45 Memantine (Namenda) 10 mg QHS PO Last administered on 07/19/18at 21:45; Start at 21:00 Magnesium Hydroxide (Milk Of Magnesia) 2,400 mg PRN DAILY PRN PO CONSTIPATION Last administered on 07/19/18at 07:45; Start 07/12/18 at 14:15 Albuterol Sulfate (Ventolin Neb Soln) 2.5 mg RTQID NEB Last administered on at 11:04; Start 07/12/18 at 20:00 Levothyroxine Sodium (Synthroid) 100 mcg DAILY07 PO Last administered on at 07:23; Start 07/13/18 at 07:00 Iohexol (Omnipaque 350 Mg/ml) 75 ml 1X ONCE IV Last administered on 07/13/18at 07:39; Start 07/13/18 at 07:15; Stop 07/13/18 at 07:16; Status DC Info (CONTRAST GIVEN -- Rx MONITORING) 1 each PRN DAILY PRN MC SEE COMMENTS; Start 07/13/18 at 07:15; Stop 07/15/18 at 07:14; Status DC Magnesium Hydroxide (Milk Of Magnesia) 2,400 mg 1X ONCE PO Last administered on 07/13/18at 12:36; Start 07/13/18 at 11:00; Stop 07/13/18 at 11:01; Status DC Alprazolam (Xanax) 0.25 mg PRN Q8HRS PRN PO ANXIETY / AGITATION Last administered on 07/19/18at 21:45; Start 07/14/18 at 17:15 Lidocaine/Sodium Bicarbonate (Buffered Lidocaine 1%) 3 ml STK-MED ONCE .ROUTE ; Start 07/15/18 at 13:13; Stop 07/15/18 at 13:14; Status DC Iohexol (Omnipaque 300 Mg/ml) 100 ml STK-MED ONCE .ROUTE ; Start 07/15/18 at 13: 13; Stop 07/15/18 at 13:14; Status DC Heparin Sodium/ Sodium Chloride 1,000 ml @ As Directed STK-MED ONCE .ROUTE ; Start 07/15/18 at 13:14; Stop 07/15/18 at 13:15; Status DC Pantoprazole Sodium (Protonix) 40 mg 1X ONCE PO Last administered on at 19:51; Start 07/16/18 at 19:30; Stop 07/16/18 at 19:31; Status DC Iohexol (Omnipaque 240 Mg/ml) 100 ml STK-MED ONCE .ROUTE ; Start 07/17/18 at 09: 43; Stop 07/17/18 at 09:44; Status DC Lidocaine/Sodium Bicarbonate (Buffered Lidocaine 1%) 3 ml STK-MED ONCE .ROUTE ; Start 07/17/18 at 09:44; Stop 07/17/18 at 09:45; Status DC Heparin Sodium/ Sodium Chloride 500 ml @ As Directed STK-MED ONCE .ROUTE ; Start 07/17/18 at 09:44; Stop 07/17/18 at 09:45; Status DC Midazolam HCl (Versed) 2 mg STK-MED ONCE .ROUTE ; Start 07/17/18 at 10:47; Stop 07/17/18 at 10:48; Status DC Fentanyl Citrate (Fentanyl 2ml Vial) 100 mcg STK-MED ONCE .ROUTE ; Start at 10:47; Stop 07/17/18 at 10:48; Status DC Iohexol (Omnipaque 240 Mg/ml) 100 ml STK-MED ONCE .ROUTE ; Start 07/17/18 at 10: 51; Stop 07/17/18 at 10:52; Status DC Heparin Sodium/ Sodium Chloride (HEPARIN for ARTERIAL LINE FLUSH) 1,000 unit 1X ONCE IART Last administered on 07/17/18at 11:45; Start 07/17/18 at 11:45; Stop 07/17/18 at 11:46; Status DC Lidocaine/Sodium Bicarbonate (Buffered Lidocaine 1%) 3 ml 1X ONCE IJ Last administered on 07/17/18at 11:58; Start 07/17/18 at 11:45; Stop 07/17/18 at 11:46 ; Status DC Midazolam HCl (Versed) 2 mg 1X ONCE IV Last administered on 07/17/18at 11:59; Start 07/17/18 at 11:45; Stop 07/17/18 at 11:46; Status DC Fentanyl Citrate (Fentanyl 2ml Vial) 100 mcg 1X ONCE IV Last administered on at 11:59; Start 07/17/18 at 11:45; Stop 07/17/18 at 11:46; Status DC Iohexol (Omnipaque 240 Mg/ml) 100 ml 1X ONCE INT ART Last administered on 07/17at 11:58; Start 07/17/18 at 11:45; Stop 07/17/18 at 11:46; Status DC Vancomycin HCl 250 ml @ 250 mls/hr 1X PREOP PRN IV PRIOR TO PROCEDURE Last administered on 07/18/18at 09:30; Start 07/18/18 at 06:00; Stop 07/18/18 at 18:00 ; Status DC Ondansetron HCl (Zofran) 4 mg PRN Q6HRS PRN IV NAUSEA/VOMITING; Start 07/18/18 at 06:45; Stop 07/19/18 at 06:44; Status DC Fentanyl Citrate (Fentanyl 2ml Vial) 25 mcg PRN Q5MIN PRN IV MILD PAIN Last administered on 07/18/18at 14:42; Start 07/18/18 at 06:45; Stop 07/19/18 at 06:44 ; Status DC Fentanyl Citrate (Fentanyl 2ml Vial) 50 mcg PRN Q5MIN PRN IV MODERATE TO SEVERE PAIN; Start 07/18/18 at 06:45; Stop 07/19/18 at 06:44; Status DC Ringer's Solution 1,000 ml @ 30 mls/hr Q24H IV Last administered on 07/18/18at 09:39; Start 07/18/18 at 06:31; Stop 07/18/18 at 18:30; Status DC Lidocaine HCl (Xylocaine-Mpf 1% 2ml Vial) 2 ml PRN 1X PRN ID PRIOR TO IV START Last administered on 07/18/18at 09:40; Start 07/18/18 at 06:45; Stop 07/19/18 at 06:44; Status DC Prochlorperazine Edisylate (Compazine) 5 mg PACU PRN PRN IV NAUSEA, MRX1; Start 07/18/18 at 06:45; Stop 07/19/18 at 06:44; Status DC Heparin Sodium (Porcine) 5000 unit/Sodium Chloride 505 ml @ 505 mls/hr 1X ONCE IRR Last administered on 07/18/18at 11:05; Start 07/18/18 at 07:25; Stop at 08:24; Status DC Ropivacaine (Naropin 0.5%) 20 ml STK-MED ONCE .ROUTE ; Start 07/18/18 at 08:54; Stop 07/18/18 at 08:55; Status DC Nicardipine HCl (Cardene) 25 mg STK-MED ONCE IV ; Start 07/18/18 at 09:16; Stop 07/18/18 at 09:17; Status DC Midazolam HCl (Versed) 2 mg STK-MED ONCE .ROUTE ; Start 07/18/18 at 09:17; Stop 07/18/18 at 09:18; Status DC Phenylephrine HCl (Rito-Synephrine Inj) 10 mg STK-MED ONCE .ROUTE ; Start at 09:17; Stop 07/18/18 at 09:18; Status DC Albuterol/ Ipratropium (Duoneb) 3 ml STK-MED ONCE .ROUTE ; Start 07/18/18 at 09: 31; Stop 07/18/18 at 09:32; Status DC Albuterol/ Ipratropium (Duoneb) 3 ml 1X ONCE NEB Last administered on at 09:38; Start 07/18/18 at 09:45; Stop 07/18/18 at 09:46; Status DC Bupivacaine HCl/ Epinephrine Bitart (Sensorcaine-Epi 0.25%-1:[id number] Mpf) 30 ml STK-MED ONCE .ROUTE Last administered on 07/18/18at 10:32; Start 07/18/18 at 08: 37; Stop 07/18/18 at 09:37; Status DC Dexamethasone Sodium Phosphate (Decadron) 20 mg STK-MED ONCE .ROUTE ; Start at 09:44; Stop 07/18/18 at 09:45; Status DC Ondansetron HCl (Zofran) 4 mg STK-MED ONCE .ROUTE ; Start 07/18/18 at 09:44; Stop 07/18/18 at 09:45; Status DC Propofol 20 ml @ As Directed STK-MED ONCE IV ; Start 07/18/18 at 09:44; Stop at 09:45; Status DC Lidocaine HCl (Lidocaine Pf 2% Vial) 5 ml STK-MED ONCE .ROUTE ; Start 07/18/18 at 09:44; Stop 07/18/18 at 09:45; Status DC Rocuronium [place]ushing (Zemuron) 50 mg STK-MED ONCE .ROUTE ; Start 07/18/18 at 09:44 ; Stop 07/18/18 at 09:45; Status DC Nitroglycerin/ Dextrose 0 ml @ As Directed STK-MED ONCE IV ; Start 07/18/18 at 09:52; Stop 07/18/18 at 09:53; Status DC Glycopyrrolate (Robinul) 1 mg STK-MED ONCE .ROUTE ; Start 07/18/18 at 10:24; Stop 07/18/18 at 10:25; Status DC Heparin Sodium (Porcine) (Heparin Sodium) 10,000 unit STK-MED ONCE .ROUTE ; Start 07/18/18 at 10:58; Stop 07/18/18 at 10:59; Status DC Sodium Chloride (SODIUM CHLORIDE 20ml) 20 ml STK-MED ONCE IJ ; Start 07/18/18 at 10:58; Stop 07/18/18 at 10:59; Status DC Neostigmine Methylsulfate (Bloxiverz) 10 mg STK-MED ONCE .ROUTE ; Start at 11:17; Stop 07/18/18 at 11:18; Status DC Cellulose (Surgicel Hemostat 4x8) 1 each STK-MED ONCE .ROUTE Last administered on 07/18/18at 11:42; Start 07/18/18 at 10:41; Stop 07/18/18 at 11:41; Status DC Flumazenil (Romazicon) 0.5 mg STK-MED ONCE IV ; Start 07/18/18 at 12:16; Stop at 12:17; Status DC Sevoflurane (Ultane) 90 ml STK-MED ONCE IH ; Start 07/18/18 at 12:22; Stop 07/18 at 12:23; Status DC Protamine Sulfate (Protamine) 50 mg STK-MED ONCE IV ; Start 07/18/18 at 12:22; Stop 07/18/18 at 12:23; Status DC Sodium Chloride (Normal Saline Flush) 3 ml QSHIFT PRN IV AFTER MEDS AND BLOOD DRAWS; Start 07/18/18 at 12:30 Sodium Chloride 1,000 ml @ 100 mls/hr Q10H IV ; Start 07/18/18 at 12:24; Stop 07/19/18 at 15:40; Status DC Hydromorphone HCl (Dilaudid) 0.2 mg PRN Q1HR PRN IV PAIN; Start 07/18/18 at 12: 30; Status UNV Acetaminophen/ Hydrocodone Bitart (Lortab 5/325) 1 tab PRN Q4HRS PRN PO MILD PAIN; Start 07/18/18 at 12:30; Status UNV Acetaminophen (Tylenol) 650 mg Q8HRS PO Last administered on 07/18/18at 21:24; Start 07/18/18 at 14:00; Stop 07/19/18 at 04:04; Status DC Ondansetron HCl (Zofran) 4 mg PRN Q6HRS PRN IV NAUESA, 1ST CHOICE; Start at 12:30 Lidocaine HCl (Lidocaine Pf 2% Vial) 5 ml STK-MED ONCE .ROUTE ; Start 07/18/18 at 12:34; Stop 07/18/18 at 12:35; Status DC Fentanyl Citrate (Fentanyl 2ml Vial) 100 mcg STK-MED ONCE .ROUTE ; Start at 13:13; Stop 07/18/18 at 13:14; Status DC Fentanyl Citrate (Fentanyl 2ml Vial) 50 mcg PRN Q3HRS PRN IV MODERATE PAIN; Start 07/18/18 at 18:30 Fentanyl Citrate (Fentanyl 2ml Vial) 75 mcg PRN Q3HRS PRN IV SEVERE PAIN; Start 07/18/18 at 18:30 Sodium Chloride 750 ml @ 375 mls/hr 1X ONCE IV Last administered on at 19:15; Start 07/18/18 at 19:15; Stop 07/18/18 at 21:14; Status DC Pantoprazole Sodium (Protonix) 40 mg 1X ONCE PO Last administered on at 23:00; Start 07/18/18 at 23:00; Stop 07/18/18 at 23:01; Status DC Active Scripts Active Reported Alprazolam 0.5 Mg Tablet 0.5 Mg PO PRN DAILY PRN Anoro Ellipta 62.5-25 Mcg Inh (Umeclidinium Brm/Vilanterol Tr) 1 Each Disk.w.dev 1 Each IH DAILY Triamcinolone Acetonide 0.1% Oint (Triamcinolone Acetonide) 15 Gm Oint...g. 1 Mayank TP PRN BID MIX WITH EUCERIN DIRECTED BY PHYSICIAN Synthroid (Levothyroxine Sodium) 75 Mcg Tablet 1 Tab PO DAILY B-6 (Pyridoxine HCl (Vitamin B6)) 200 Mg Tablet.er 200 Mg PO DAILY Proair Hfa Inhaler (Albuterol Sulfate) 8.5 Gm Hfa.aer.ad 2 Puff INH PRN Q6HRS PRN Potassium Chloride 20 Meq Tablet.er 99 Mg PO DAILY Protonix (Pantoprazole Sodium) 20 Mg Tablet.dr 40 Mg PO DAILY Fish Oil 1,000 mg Softgel ([place]-3/Dha/Epa/Fish Oil) 1,000 Mg Capsule 1,000 Mg PO DAILY NITROGLYCERIN SubLingual (Nitroglycerin) 0.4 Mg Tab.subl 0.4 Mg SL PRN Q5MIN PRN Multivitamins (Multivitamin) 1 Each Tablet 1 Tab PO DAILY Metoprolol Succinate ( Xl ) (Metoprolol Succinate) 25 Mg Tab.er.24h 25 Mg PO DAILY Namenda (Memantine Hcl) 10 Mg Tablet 10 Mg PO DAILY Lisinopril 10 Mg Tablet 10 Mg PO DAILY Isosorbide Mononitrate Er (Isosorbide Mononitrate) 30 Mg Tab.er.24h 30 Mg PO DAILY Guaifenesin 400 Mg Tablet 400 Mg PO PRN BID Lasix (Furosemide) 20 Mg Tablet 10 Mg PO DAILY Eliquis (Apixaban) 5 Mg Tablet 5 Mg PO BID Cardizem Cd (Diltiazem Hcl) 180 Mg Cap.er.24h 120 Mg PO DAILY Coenzyme Q10 (Ubidecarenone) 10 Mg Capsule 10 Mg PO DAILY Vitamin D (Cholecalciferol (Vitamin D3)) 2,000 Unit Capsule 1 Cap PO DAILY Calcium Carbonate 600 Mg Tablet 1,200 Mg PO TID Lipitor (Atorvastatin Calcium) 40 Mg Tablet 1 Tab PO QHS Aspirin 81 Mg Tab.chew 1 Tab PO DAILY Xanax (Alprazolam) 0.5 Mg Tablet 0.75 Mg PO PRN DAILY PRN Fosamax (Alendronate Sodium) 70 Mg Tablet 1 Tab PO WEEKLY Proair Hfa Inhaler (Albuterol Sulfate) 8.5 Gm Hfa.aer.ad 1 Puff INH PRN Q6HRS PRN Vitals/I & O Vital Sign - Last 24 Hours 07/19/18 07/19/18 07/19/18 07/19/18 11:15 11:46 15:00 15:46 Temp 98.6 98.0 98.6 98.0 Pulse 76 66 Resp 16 18 B/P (MAP) 113/47 (69) 111/48 (69) Pulse Ox 94 100 O2 Delivery Room Air Nasal Cannula Nasal Cannula Nasal Cannula O2 Flow Rate 2.0 2.0 2.0 07/19/18 07/19/18 07/19/18 07/19/18 19:20 20:00 20:02 23:41 Temp 98.1 98.4 98.1 98.4 Pulse 64 59 Resp 17 20 B/P (MAP) 127/50 (75) 114/42 (66) Pulse Ox 98 96 98 O2 Delivery Nasal Cannula Room Air Nasal Cannula Nasal Cannula O2 Flow Rate 2.0 2.0 2.0 07/20/18 07/20/18 07/20/18 07/20/18 03:00 04:40 05:07 07:30 Temp 98.4 98.0 98.4 98.0 Pulse 61 64 Resp 18 18 B/P (MAP) 120/49 (72) 147/55 (85) Pulse Ox 98 97 O2 Delivery Nasal Cannula Nasal Cannula Room Air Nasal Cannula O2 Flow Rate 2.0 2.0 2.0 07/20/18 07/20/18 07/20/18 07/20/18 07:50 08:00 09:18 09:20 Pulse 64 64 B/P (MAP) 147/55 147/55 Pulse Ox 97 O2 Delivery Nasal Cannula Room Air O2 Flow Rate 2.0 2.0 07/20/18 07/20/18 07/20/18 09:21 10:28 11:05 Temp 98.2 98.2 Pulse 64 77 Resp 18 B/P (MAP) 147/55 133/51 (78) Pulse Ox 96 97 O2 Delivery Nasal Cannula Nasal Cannula O2 Flow Rate 2.0 2.0 Intake and Output 07/19/18 07/19/18 07/20/18 14:59 22:59 06:59 Intake Total 840 ml 260 ml Balance 840 ml 260 ml Nutrition Consultation Dietary Evaluation: Recommendations by RD: Protein supplementation Comments: REC resume regular diet when able REC Ensure BID (strawberry) breakfast and dinner Expected Outcomes/Goals: PO intake to meet >75% est needs- goal ongoing Malnutrition Findings: Body Fat Depletion (Non Severe: Mild Depletion Weight Status: Appropriate RUBEN GARCIA MD Jul 20, 2018 11:13
[2018-07-20] MEDS: ANTI-COAG MONITOR BY PHARMACY. MC PRN (11:47)
--- NOTE | 2018-07-20 12:08 | PDOC3 ---
Discharge Summary Date of Admission: Jul 10, 2018 Date of Discharge: Jul 20, 2018 Follow-Up: 3-5 days Admitting Diagnosis comment: DISCHARGE DX Speech Difficulty Confusion TO DETAILS MAY BE SEC TO carotid disease, multifactorial Small round lucencies of the calvarium are seen measuring less than 1 cm in size. This may be secondary to senile osteoporosis although could also be seen with multiple myeloma if there is a history of such. tia Memory loss- Dementia MOD, MORE CONFUSION ON VISIT 07/19 COPD FH of CAD Former smoker Occlusion or severe 99 percent stenosis of the right internal carotid artery with slow flow. POD # 2 07/[address] ANGIOGRAM TODAY, PT WANTS TO GO HOME ALONE, HIGH RISK D/C LIVES ALONE WILL CONSULT PAT 07/[address] ANGIOGRAPHY OF NECK AND BRAIN TODAY PLANNED 07/17 SURGERY LATER TODAY, HIGH RIS OF COMPLICATIONS per my chart review 07/19 MORE CONFUSED ABOVE BASELINE, PLAN SNF BED PLACEMENT 07/20 REFUSED SNF BED AMA, INSISTS TO GO HOME MORE ALERT, CLEAR THOUGHTS, RESTART ELIQUIS WILL NEED HOME HEALTH History of Present Illness History of Present Illness Ms Jimenez is a 73 yo F who was admitted for confusion/difficulty speaking, PMH COPD and former smoker She was seen and examined in her room this morning, NAD less expressive aphasia, completed thoughts , not completely She states that when her anxiety increases, her ability to express her thoughts decreases Discussed her medications, treatments, and her concerns at length Discussed with RN 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 This is nonspecific and could be related to acute or chronic bronchial inflammatory process or chronic aspiration. CTA neck was reviewed with , occlusion vs a string sign -- Dx angiogram / icritical stenosis of the right ICA approx 2 cm distal to bifurcation. CEA Dr Perkins. 07/18 UNDERSTANDS RISK OF CVA OR WITH HIGH RISK SURGERY 07/17 plan serum protein immuno - electrophoresis complex decision making involved, care coordination 48 min > 50% in pt care and record review, pt exam, face to face care Brief Hospital Course Ms. Jimenez is a 73 old [sex] who presented with [ ] CONDITION AT DISCHARGE: Improved Discharge Medications Current Medications Aspirin (Children'S Aspirin) 324 mg 1X ONCE PO Last administered on 07/10/18 16:36; Start 07/10/18 at 15:45; Stop 07/10/18 at 16:30; Status DC Albuterol Sulfate (Ventolin Neb Soln) 2.5 mg PRN Q6HRS PRN INH SHORTNESS OF BREATH Last administered on 07/20/18at 04:35; Start 07/10/18 at 19:00 Alprazolam (Xanax) 0.75 mg PRN DAILY PRN PO ANXIETY / AGITATION Last administered on 07/13/18at 21:44; Start 07/10/18 at 19:00; Stop 07/15/18 at 16:17 ; Status DC Apixaban (Eliquis) 5 mg BID PO Last administered on 07/18/18 21:23; Start 07/10 at 21:00; Stop 07/19/18 at 03:44; Status DC Aspirin (Children'S Aspirin) 81 mg DAILY PO Last administered on 07/20/18 09: 20; Start 07/11/18 at 09:00 Atorvastatin Calcium (Lipitor) 40 mg QHS PO Last administered on 07/19/18at 21: 43; Start 07/10/18 at 21:00 Furosemide (Lasix) 10 mg DAILY PO Last administered on 07/20/18 09:19; Start 07/11/18 at 09:00 Isosorbide Mononitrate (Imdur) 30 mg DAILY PO Last administered on 07/20/18 09 :20; Start 07/11/18 at 09:00 Levothyroxine Sodium (Synthroid) 75 mcg DAILY07 PO Last administered on 06:15; Start 07/11/18 at 07:00; Stop 07/12/18 at 17:17; Status DC Lisinopril (Prinivil) 10 mg DAILY PO Last administered on 07/20/18 09:18; Start 07/11/18 at 09:00 Metoprolol Succinate (Toprol Xl) 25 mg DAILY PO Last administered on 07/19/18at 07:48; Start 07/11/18 at 09:00 Nitroglycerin (Nitrostat) 0.4 mg PRN Q5MIN PRN SL CHEST PAIN; Start 07/10/18 at 19:00 Triamcinolone Acetonide (Kenalog) 1 mayank PRN BID PRN TP RASH; Start 07/10/18 at 19:00 Non-Formulary Medication (Alendronate Sodium (Fosamax)) 1 tab WEEKLY PO ; Start 07/17/18 at 09:00; Status UNV Calcium Carbonate/ Glycine (Oscal) 1,000 mg TIDAFTMEAL PO Last administered on 07/19/18 18:34; Start 07/11/18 at 09:00 Vitamin D (Vitamin D3) 2,000 unit DAILY PO Last administered on 07/20/18at 09:20 ; Start 07/11/18 at 09:00 Diltiazem HCl (Cardizem 24hr Cd) 120 mg DAILY PO Last administered on 09:21; Start 07/11/18 at 09:00 Guaifenesin (Robitussin) 400 mg PRN BID PRN PO COUGH; Start 07/10/18 at 19:15 Memantine (Namenda) 10 mg DAILY PO ; Start 07/11/18 at 09:00; Stop 07/11/18 at 12: 59; Status DC Multivitamins (Thera M Plus) 1 tab DAILY PO Last administered on 07/20/18at 09: 20; Start 07/11/18 at 09:00 Fish Oil (Fish Oil) 1,000 mg DAILY PO Last administered on 07/20/18 09:18; Start 07/11/18 at 09:00 Pantoprazole Sodium (Protonix) 40 mg DAILYAC PO Last administered on 07/20/18at 07:23; Start 07/11/18 at 07:30 Non-Formulary Medication (Potassium Chloride ) 99 mg DAILY PO ; Start 07/11/18 at 09:00; Status UNV Pyridoxine HCl (Vitamin B-6) 200 mg DAILY PO Last administered on 07/20/18at 09: 20; Start 07/11/18 at 09:00 Non-Formulary Medication (Ubidecarenone (Coenzyme Q10)) 10 mg DAILY PO ; Start 07/11/18 at 09:00; Status UNV Non-Formulary Medication 1 ea DAILY INH Last administered on 07/20/18at 09:18; Start 07/11/18 at 09:00 Info (Anti-Coagulation Monitoring By Pharmacy) 1 each PRN DAILY PRN MC SEE COMMENTS Last administered on 3/17/19at 11:47; Start 07/11/18 at 07:45 Acetaminophen (Tylenol) 650 mg PRN Q6HRS PRN PO TEMP > 100.4F; Start 07/11/18 at 08:45 Acetaminophen (Tylenol Supp) 650 mg PRN Q4HRS PRN CT TEMP > 100.4F; Start at 08:45 Memantine (Namenda) 10 mg QHS PO Last administered on 07/19/18at 21:45; Start at 21:00 Magnesium Hydroxide (Milk Of Magnesia) 2,400 mg PRN DAILY PRN PO CONSTIPATION Last administered on 07/19/18 07:45; Start 07/12/18 at 14:15 Albuterol Sulfate (Ventolin Neb Soln) 2.5 mg RTQID NEB Last administered on 11:04; Start 07/12/18 at 20:00 Levothyroxine Sodium (Synthroid) 100 mcg DAILY07 PO Last administered on at 07:23; Start 07/13/18 at 07:00 Iohexol (Omnipaque 350 Mg/ml) 75 ml 1X ONCE IV Last administered on 07/13/18at 07:39; Start 07/13/18 at 07:15; Stop 07/13/18 at 07:16; Status DC Info (CONTRAST GIVEN -- Rx MONITORING) 1 each PRN DAILY PRN MC SEE COMMENTS; Start 07/13/18 at 07:15; Stop 07/15/18 at 07:14; Status DC Magnesium Hydroxide (Milk Of Magnesia) 2,400 mg 1X ONCE PO Last administered on 07/13/18at 12:36; Start 07/13/18 at 11:00; Stop 07/13/18 at 11:01; Status DC Alprazolam (Xanax) 0.25 mg PRN Q8HRS PRN PO ANXIETY / AGITATION Last administered on 07/19/18 21:45; Start 07/14/18 at 17:15 Lidocaine/Sodium Bicarbonate (Buffered Lidocaine 1%) 3 ml STK-MED ONCE .ROUTE ; Start 07/15/18 at 13:13; Stop 07/15/18 at 13:14; Status DC Iohexol (Omnipaque 300 Mg/ml) 100 ml STK-MED ONCE .ROUTE ; Start 07/15/18 at 13: 13; Stop 07/15/18 at 13:14; Status DC Heparin Sodium/ Sodium Chloride 1,000 ml @ As Directed STK-MED ONCE .ROUTE ; Start 07/15/18 at 13:14; Stop 07/15/18 at 13:15; Status DC Pantoprazole Sodium (Protonix) 40 mg 1X ONCE PO Last administered on at 19:51; Start 07/16/18 at 19:30; Stop 07/16/18 at 19:31; Status DC Iohexol (Omnipaque 240 Mg/ml) 100 ml STK-MED ONCE .ROUTE ; Start 07/17/18 at 09: 43; Stop 07/17/18 at 09:44; Status DC Lidocaine/Sodium Bicarbonate (Buffered Lidocaine 1%) 3 ml STK-MED ONCE .ROUTE ; Start 07/17/18 at 09:44; Stop 07/17/18 at 09:45; Status DC Heparin Sodium/ Sodium Chloride 500 ml @ As Directed STK-MED ONCE .ROUTE ; Start 07/17/18 at 09:44; Stop 07/17/18 at 09:45; Status DC Midazolam HCl (Versed) 2 mg STK-MED ONCE .ROUTE ; Start 07/17/18 at 10:47; Stop 07/17/18 at 10:48; Status DC Fentanyl Citrate (Fentanyl 2ml Vial) 100 mcg STK-MED ONCE .ROUTE ; Start at 10:47; Stop 07/17/18 at 10:48; Status DC Iohexol (Omnipaque 240 Mg/ml) 100 ml STK-MED ONCE .ROUTE ; Start 07/17/18 at 10: 51; Stop 07/17/18 at 10:52; Status DC Heparin Sodium/ Sodium Chloride (HEPARIN for ARTERIAL LINE FLUSH) 1,000 unit 1X ONCE IART Last administered on 07/17/18at 11:45; Start 07/17/18 at 11:45; Stop 07/17/18 at 11:46; Status DC Lidocaine/Sodium Bicarbonate (Buffered Lidocaine 1%) 3 ml 1X ONCE IJ Last administered on 07/17/18at 11:58; Start 07/17/18 at 11:45; Stop 07/17/18 at 11:46 ; Status DC Midazolam HCl (Versed) 2 mg 1X ONCE IV Last administered on 07/17/18 11:59; Start 07/17/18 at 11:45; Stop 07/17/18 at 11:46; Status DC Fentanyl Citrate (Fentanyl 2ml Vial) 100 mcg 1X ONCE IV Last administered on 11:59; Start 07/17/18 at 11:45; Stop 07/17/18 at 11:46; Status DC Iohexol (Omnipaque 240 Mg/ml) 100 ml 1X ONCE INT ART Last administered on 07/17 11:58; Start 07/17/18 at 11:45; Stop 07/17/18 at 11:46; Status DC Vancomycin HCl 250 ml @ 250 mls/hr 1X PREOP PRN IV PRIOR TO PROCEDURE Last administered on 07/18/18 09:30; Start 07/18/18 at 06:00; Stop 07/18/18 at 18:00 ; Status DC Ondansetron HCl (Zofran) 4 mg PRN Q6HRS PRN IV NAUSEA/VOMITING; Start 07/18/18 at 06:45; Stop 07/19/18 at 06:44; Status DC Fentanyl Citrate (Fentanyl 2ml Vial) 25 mcg PRN Q5MIN PRN IV MILD PAIN Last administered on 07/18/18 14:42; Start 07/18/18 at 06:45; Stop 07/19/18 at 06:44 ; Status DC Fentanyl Citrate (Fentanyl 2ml Vial) 50 mcg PRN Q5MIN PRN IV MODERATE TO SEVERE PAIN; Start 07/18/18 at 06:45; Stop 07/19/18 at 06:44; Status DC Ringer's Solution 1,000 ml @ 30 mls/hr Q24H IV Last administered on 07/18/18 09:39; Start 07/18/18 at 06:31; Stop 07/18/18 at 18:30; Status DC Lidocaine HCl (Xylocaine-Mpf 1% 2ml Vial) 2 ml PRN 1X PRN ID PRIOR TO IV START Last administered on 07/18/18at 09:40; Start 07/18/18 at 06:45; Stop 07/19/18 at 06:44; Status DC Prochlorperazine Edisylate (Compazine) 5 mg PACU PRN PRN IV NAUSEA, MRX1; Start 07/18/18 at 06:45; Stop 07/19/18 at 06:44; Status DC Heparin Sodium (Porcine) 5000 unit/Sodium Chloride 505 ml @ 505 mls/hr 1X ONCE IRR Last administered on 07/18/18at 11:05; Start 07/18/18 at 07:25; Stop at 08:24; Status DC Ropivacaine (Naropin 0.5%) 20 ml STK-MED ONCE .ROUTE ; Start 07/18/18 at 08:54; Stop 07/18/18 at 08:55; Status DC Nicardipine HCl (Cardene) 25 mg STK-MED ONCE IV ; Start 07/18/18 at 09:16; Stop 07/18/18 at 09:17; Status DC Midazolam HCl (Versed) 2 mg STK-MED ONCE .ROUTE ; Start 07/18/18 at 09:17; Stop 07/18/18 at 09:18; Status DC Phenylephrine HCl (Rito-Synephrine Inj) 10 mg STK-MED ONCE .ROUTE ; Start at 09:17; Stop 07/18/18 at 09:18; Status DC Albuterol/ Ipratropium (Duoneb) 3 ml STK-MED ONCE .ROUTE ; Start 07/18/18 at 09: 31; Stop 07/18/18 at 09:32; Status DC Albuterol/ Ipratropium (Duoneb) 3 ml 1X ONCE NEB Last administered on at 09:38; Start 07/18/18 at 09:45; Stop 07/18/18 at 09:46; Status DC Bupivacaine HCl/ Epinephrine Bitart (Sensorcaine-Epi 0.25%-1:[id number] Mpf) 30 ml STK-MED ONCE .ROUTE Last administered on 07/18/18at 10:32; Start 07/18/18 at 08: 37; Stop 07/18/18 at 09:37; Status DC Dexamethasone Sodium Phosphate (Decadron) 20 mg STK-MED ONCE .ROUTE ; Start at 09:44; Stop 07/18/18 at 09:45; Status DC Ondansetron HCl (Zofran) 4 mg STK-MED ONCE .ROUTE ; Start 07/18/18 at 09:44; Stop 07/18/18 at 09:45; Status DC Propofol 20 ml @ As Directed STK-MED ONCE IV ; Start 07/18/18 at 09:44; Stop at 09:45; Status DC Lidocaine HCl (Lidocaine Pf 2% Vial) 5 ml STK-MED ONCE .ROUTE ; Start 07/18/18 at 09:44; Stop 07/18/18 at 09:45; Status DC Rocuronium [place] (Zemuron) 50 mg STK-MED ONCE .ROUTE ; Start 07/18/18 at 09:44 ; Stop 07/18/18 at 09:45; Status DC Nitroglycerin/ Dextrose 0 ml @ As Directed STK-MED ONCE IV ; Start 07/18/18 at 09:52; Stop 07/18/18 at 09:53; Status DC Glycopyrrolate (Robinul) 1 mg STK-MED ONCE .ROUTE ; Start 07/18/18 at 10:24; Stop 07/18/18 at 10:25; Status DC Heparin Sodium (Porcine) (Heparin Sodium) 10,000 unit STK-MED ONCE .ROUTE ; Start 07/18/18 at 10:58; Stop 07/18/18 at 10:59; Status DC Sodium Chloride (SODIUM CHLORIDE 20ml) 20 ml STK-MED ONCE IJ ; Start 07/18/18 at 10:58; Stop 07/18/18 at 10:59; Status DC Neostigmine Methylsulfate (Bloxiverz) 10 mg STK-MED ONCE .ROUTE ; Start at 11:17; Stop 07/18/18 at 11:18; Status DC Cellulose (Surgicel Hemostat 4x8) 1 each STK-MED ONCE .ROUTE Last administered on 07/18/18at 11:42; Start 07/18/18 at 10:41; Stop 07/18/18 at 11:41; Status DC Flumazenil (Romazicon) 0.5 mg STK-MED ONCE IV ; Start 07/18/18 at 12:16; Stop at 12:17; Status DC Sevoflurane (Ultane) 90 ml STK-MED ONCE IH ; Start 07/18/18 at 12:22; Stop 07/18 at 12:23; Status DC Protamine Sulfate (Protamine) 50 mg STK-MED ONCE IV ; Start 07/18/18 at 12:22; Stop 07/18/18 at 12:23; Status DC Sodium Chloride (Normal Saline Flush) 3 ml QSHIFT PRN IV AFTER MEDS AND BLOOD DRAWS; Start 07/18/18 at 12:30 Sodium Chloride 1,000 ml @ 100 mls/hr Q10H IV ; Start 07/18/18 at 12:24; Stop 07/19/18 at 15:40; Status DC Hydromorphone HCl (Dilaudid) 0.2 mg PRN Q1HR PRN IV PAIN; Start 07/18/18 at 12: 30; Status UNV Acetaminophen/ Hydrocodone Bitart (Lortab 5/325) 1 tab PRN Q4HRS PRN PO MILD PAIN; Start 07/18/18 at 12:30; Status UNV Acetaminophen (Tylenol) 650 mg Q8HRS PO Last administered on 07/18/18at 21:24; Start 07/18/18 at 14:00; Stop 07/19/18 at 04:04; Status DC Ondansetron HCl (Zofran) 4 mg PRN Q6HRS PRN IV NAUESA, 1ST CHOICE; Start at 12:30 Lidocaine HCl (Lidocaine Pf 2% Vial) 5 ml STK-MED ONCE .ROUTE ; Start 07/18/18 at 12:34; Stop 07/18/18 at 12:35; Status DC Fentanyl Citrate (Fentanyl 2ml Vial) 100 mcg STK-MED ONCE .ROUTE ; Start at 13:13; Stop 07/18/18 at 13:14; Status DC Fentanyl Citrate (Fentanyl 2ml Vial) 50 mcg PRN Q3HRS PRN IV MODERATE PAIN; Start 07/18/18 at 18:30 Fentanyl Citrate (Fentanyl 2ml Vial) 75 mcg PRN Q3HRS PRN IV SEVERE PAIN; Start 07/18/18 at 18:30 Sodium Chloride 750 ml @ 375 mls/hr 1X ONCE IV Last administered on at 19:15; Start 07/18/18 at 19:15; Stop 07/18/18 at 21:14; Status DC Pantoprazole Sodium (Protonix) 40 mg 1X ONCE PO Last administered on at 23:00; Start 07/18/18 at 23:00; Stop 07/18/18 at 23:01; Status DC Apixaban (Eliquis) 5 mg BID PO ; Start 07/20/18 at 21:00 Active Scripts Active Reported Alprazolam 0.5 Mg Tablet 0.5 Mg PO PRN DAILY PRN Anoro Ellipta 62.5-25 Mcg Inh (Umeclidinium Brm/Vilanterol Tr) 1 Each Disk.w.dev 1 Each IH DAILY Triamcinolone Acetonide 0.1% Oint (Triamcinolone Acetonide) 15 Gm Oint...g. 1 Mayank TP PRN BID MIX WITH EUCERIN DIRECTED BY PHYSICIAN Synthroid (Levothyroxine Sodium) 75 Mcg Tablet 1 Tab PO DAILY B-6 (Pyridoxine HCl (Vitamin B6)) 200 Mg Tablet.er 200 Mg PO DAILY Proair Hfa Inhaler (Albuterol Sulfate) 8.5 Gm Hfa.aer.ad 2 Puff INH PRN Q6HRS PRN Potassium Chloride 20 Meq Tablet.er 99 Mg PO DAILY Protonix (Pantoprazole Sodium) 20 Mg Tablet.dr 40 Mg PO DAILY Fish Oil 1,000 mg Softgel ([place]-3/Dha/Epa/Fish Oil) 1,000 Mg Capsule 1,000 Mg PO DAILY NITROGLYCERIN SubLingual (Nitroglycerin) 0.4 Mg Tab.subl 0.4 Mg SL PRN Q5MIN PRN Multivitamins (Multivitamin) 1 Each Tablet 1 Tab PO DAILY Metoprolol Succinate ( Xl ) (Metoprolol Succinate) 25 Mg Tab.er.24h 25 Mg PO DAILY Namenda (Memantine Hcl) 10 Mg Tablet 10 Mg PO DAILY Lisinopril 10 Mg Tablet 10 Mg PO DAILY Isosorbide Mononitrate Er (Isosorbide Mononitrate) 30 Mg Tab.er.24h 30 Mg PO DAILY Guaifenesin 400 Mg Tablet 400 Mg PO PRN BID Lasix (Furosemide) 20 Mg Tablet 10 Mg PO DAILY Eliquis (Apixaban) 5 Mg Tablet 5 Mg PO BID Cardizem Cd (Diltiazem Hcl) 180 Mg Cap.er.24h 120 Mg PO DAILY Coenzyme Q10 (Ubidecarenone) 10 Mg Capsule 10 Mg PO DAILY Vitamin D (Cholecalciferol (Vitamin D3)) 2,000 Unit Capsule 1 Cap PO DAILY Calcium Carbonate 600 Mg Tablet 1,200 Mg PO TID Lipitor (Atorvastatin Calcium) 40 Mg Tablet 1 Tab PO QHS Aspirin 81 Mg Tab.chew 1 Tab PO DAILY Xanax (Alprazolam) 0.5 Mg Tablet 0.75 Mg PO PRN DAILY PRN Fosamax (Alendronate Sodium) 70 Mg Tablet 1 Tab PO WEEKLY Proair Hfa Inhaler (Albuterol Sulfate) 8.5 Gm Hfa.aer.ad 1 Puff INH PRN Q6HRS PRN Vital Signs Vital Signs Date Time Temp Pulse Resp B/P (MAP) Pulse Ox O2 Delivery O2 Flow Rate FiO2 07/20/18 11:05 97 Nasal Cannula 2.0 07/20/18 10:28 98.2 77 18 133/51 (78) 98.2 Labs Laboratory Tests Test 07/19/18 03:30 07/20/18 04:30 White Blood Count 10.2 x10^3/uL (4.0-11.0) 7.4 x10^3/uL (4.0-11.0) Red Blood Count 2.79 x10^6/uL (3.50-5.40) 2.82 x10^6/uL (3.50-5.40) Hemoglobin 8.6 g/dL (12.0-15.5) 8.7 g/dL (12.0-15.5) Hematocrit 26.4 % (36.0-47.0) 26.6 % (36.0-47.0) Mean Corpuscular Volume 94 fL (79-100) 94 fL (79-100) Mean Corpuscular Hemoglobin 31 pg (25-35) 31 pg (25-35) Mean Corpuscular Hemoglobin Concent 33 g/dL (31-37) 33 g/dL (31-37) Red Cell Distribution Width 14.7 % (11.5-14.5) 14.5 % (11.5-14.5) Platelet Count 270 x10^3/uL (140-400) 240 x10^3/uL (140-400) Neutrophils (%) (Auto) 79 % (31-73) 61 % (31-73) Lymphocytes (%) (Auto) 10 % (24-48) 22 % (24-48) Monocytes (%) (Auto) 11 % (0-9) 11 % (0-9) Eosinophils (%) (Auto) 0 % (0-3) 5 % (0-3) Basophils (%) (Auto) 0 % (0-3) 1 % (0-3) Neutrophils # (Auto) 8.0 x10^3uL (1.8-7.7) 4.5 x10^3uL (1.8-7.7) Lymphocytes # (Auto) 1.0 x10^3/uL (1.0-4.8) 1.7 x10^3/uL (1.0-4.8) Monocytes # (Auto) 1.1 x10^3/uL (0.0-1.1) 0.8 x10^3/uL (0.0-1.1) Eosinophils # (Auto) 0.0 x10^3/uL (0.0-0.7) 0.4 x10^3/uL (0.0-0.7) Basophils # (Auto) 0.0 x10^3/uL (0.0-0.2) 0.0 x10^3/uL (0.0-0.2) Sodium Level 142 mmol/L (136-145) 143 mmol/L (136-145) Potassium Level 4.1 mmol/L (3.5-5.1) 4.3 mmol/L (3.5-5.1) Chloride Level 104 mmol/L (98-107) 105 mmol/L (98-107) Carbon Dioxide Level 26 mmol/L (21-32) 32 mmol/L (21-32) Anion Gap 12 (6-14) 6 (6-14) Blood Urea Nitrogen 31 mg/dL (7-20) 32 mg/dL (7-20) Creatinine 1.2 mg/dL (0.6-1.0) 0.9 mg/dL (0.6-1.0) Estimated GFR (Cockcroft-Gault) 44.0 61.4 BUN/Creatinine Ratio 26 (6-20) 36 (6-20) Glucose Level 157 mg/dL (70-99) 101 mg/dL (70-99) Calcium Level 8.2 mg/dL (8.5-10.1) 8.2 mg/dL (8.5-10.1) Total Bilirubin 0.4 mg/dL (0.2-1.0) 0.3 mg/dL (0.2-1.0) Aspartate Amino Transf (AST/SGOT) 29 U/L (15-37) 23 U/L (15-37) Alanine Aminotransferase (ALT/SGPT) 30 U/L (14-59) 27 U/L (14-59) Alkaline Phosphatase 63 U/L (46-116) 61 U/L (46-116) Total Protein 5.8 g/dL (6.4-8.2) 5.9 g/dL (6.4-8.2) Albumin 3.0 g/dL (3.4-5.0) 3.0 g/dL (3.4-5.0) Albumin/Globulin Ratio 1.1 (1.0-1.7) 1.0 (1.0-1.7) Laboratory Tests Test 07/20/18 04:30 White Blood Count 7.4 x10^3/uL (4.0-11.0) Red Blood Count 2.82 x10^6/uL (3.50-5.40) Hemoglobin 8.7 g/dL (12.0-15.5) Hematocrit 26.6 % (36.0-47.0) Mean Corpuscular Volume 94 fL (79-100) Mean Corpuscular Hemoglobin 31 pg (25-35) Mean Corpuscular Hemoglobin Concent 33 g/dL (31-37) Red Cell Distribution Width 14.5 % (11.5-14.5) Platelet Count 240 x10^3/uL (140-400) Neutrophils (%) (Auto) 61 % (31-73) Lymphocytes (%) (Auto) 22 % (24-48) Monocytes (%) (Auto) 11 % (0-9) Eosinophils (%) (Auto) 5 % (0-3) Basophils (%) (Auto) 1 % (0-3) Neutrophils # (Auto) 4.5 x10^3uL (1.8-7.7) Lymphocytes # (Auto) 1.7 x10^3/uL (1.0-4.8) Monocytes # (Auto) 0.8 x10^3/uL (0.0-1.1) Eosinophils # (Auto) 0.4 x10^3/uL (0.0-0.7) Basophils # (Auto) 0.0 x10^3/uL (0.0-0.2) Sodium Level 143 mmol/L (136-145) Potassium Level 4.3 mmol/L (3.5-5.1) Chloride Level 105 mmol/L (98-107) Carbon Dioxide Level 32 mmol/L (21-32) Anion Gap 6 (6-14) Blood Urea Nitrogen 32 mg/dL (7-20) Creatinine 0.9 mg/dL (0.6-1.0) Estimated GFR (Cockcroft-Gault) 61.4 BUN/Creatinine Ratio 36 (6-20) Glucose Level 101 mg/dL (70-99) Calcium Level 8.2 mg/dL (8.5-10.1) Total Bilirubin 0.3 mg/dL (0.2-1.0) Aspartate Amino Transf (AST/SGOT) 23 U/L (15-37) Alanine Aminotransferase (ALT/SGPT) 27 U/L (14-59) Alkaline Phosphatase 61 U/L (46-116) Total Protein 5.9 g/dL (6.4-8.2) Albumin 3.0 g/dL (3.4-5.0) Albumin/Globulin Ratio 1.0 (1.0-1.7) Allergies Allergies Coded Allergies Type Severity Reaction Last Updated Verified morphine Allergy Severe facial swelling 07/18/18 Yes NSAIDS (Non-Steroidal Anti-Inflamma Allergy Intermediate 07/17/18 Yes atropine Allergy Intermediate 07/17/18 Yes bacitracin Allergy Intermediate 07/17/18 Yes belladonna alkaloids Allergy Intermediate 07/17/18 Yes diphenhydramine Allergy Intermediate 07/17/18 Yes gramicidin D Allergy Intermediate 07/17/18 Yes hyoscyamine Allergy Intermediate 07/17/18 Yes ketorolac Allergy Intermediate 07/17/18 Yes neomycin Allergy Intermediate 07/17/18 Yes penicillin G Allergy Intermediate 07/17/18 Yes penicillin V Allergy Intermediate 07/17/18 Yes phenobarbital Allergy Intermediate 07/17/18 Yes polymyxin B Allergy Intermediate 07/17/18 Yes scopolamine Allergy Intermediate 07/17/18 Yes nickel Allergy Mild severe itching 07/17/18 Yes silver Allergy Mild severe itching 07/17/18 Yes Disposition/Orders: D/C to Home w/ HH Patient Instructions D/C PLANNING 40 MIN RUBEN GARCIA MD Jul 20, 2018 12:08
[2018-07-20] MEDS ORDERED: MAGN400O7 PO (12:12)
--- NOTE | 2018-07-20 12:13 | SNU/HH DC ---
DISCHARGE WITH HOME HEALTH DISCHARGE INFORMATION: Condition on Discharge: Stable CODE STATUS: Code Status: Full HOME HEALTH: Face to Face: I certify this patient is under my care and that I, or a nurse practitioner or physician's hair or beauty salon assistant working with me, had a face to face encounter that meets the physician face to face encounter requirements with this patient on []. Medical Complications: Dementia, Other (TIA, CAROTID STENOSIS) Physical Therapy For: Evalulation/Treatment Occupational Therapy For: Evaluation/Treatment Speech Language Pathology For: Evaluation/Treatment Home Health Aide For: Self-care PROJECT ENG For: Community Resources Pt Meets Homebound Status: Limited distance walking, Poor cognition POST DISCHARGE ORDERS: DIET AFTER DISCHARGE: Cardiac CHECKS AFTER DISCHARGE: Checks after discharge: Check blood press - daily TREATMENT/EQUIPMENT ORDERS: Discharge Respiratory Equipmen: Oxygen CERTIFICATION STATEMENT: Certification Statement: Certification Statement: Based on the above finding, I certify that this patient is confined to the home and needs intermittent detention care, physical therapy and/or speech therapy, or continues to need occupational therapy.~ This patient is under my care, and I have initiated the establishment of the plan of care.~ This patient will be followed by myself or a community physician who will periodically review the plan of care. Home Meds Active Scripts Magnesium Hydroxide (MILK OF MAGNESIA) 400 Mg/5 Ml Oral.susp, 2400 MG PO PRN DAILY PRN for CONSTIPATION for 14 Days, #120 MISC Prov:RUBEN GARCIA MD 07/20/18 Reported Medications Umeclidinium Brm/Vilanterol Tr (ANORO ELLIPTA 62.5-25 MCG INH) 1 Each Disk.w.dev , 1 EACH IH DAILY for copd, INH 07/10/18 Triamcinolone Acetonide (TRIAMCINOLONE ACETONIDE 0.1% OINT) 15 Gm Oint...g., 1 ARCELIA TP PRN BID for rash, #1 TUBE MIX WITH EUCERIN DIRECTED BY PHYSICIAN 07/10/18 Levothyroxine Sodium (SYNTHROID) 75 Mcg Tablet, 1 TAB PO DAILY for thyroid, #30 TAB 5 Refills 07/10/18 Pyridoxine HCl (Vitamin B6) (B-6) 200 Mg Tablet.er, 200 MG PO DAILY for supplement, TAB.SR 07/10/18 Albuterol Sulfate (PROAIR HFA INHALER) 8.5 Gm Hfa.aer.ad, 2 PUFF INH PRN Q6HRS PRN for SHORTNESS OF BREATH, INHALER 0 Refills 07/10/18 Potassium Chloride (POTASSIUM CHLORIDE) 20 Meq Tablet.er, 99 MG PO DAILY for supplement, TAB.SR 07/10/18 Pantoprazole Sodium (PROTONIX) 20 Mg Tablet.dr, 40 MG PO DAILY for gerd, TAB 07/10/18 [place]-3/Dha/Epa/Fish Oil (Fish Oil 1,000 mg Softgel) 1,000 Mg Capsule, 1000 MG PO DAILY for supplement, CAP 07/10/18 Nitroglycerin (NITROGLYCERIN SubLingual) 0.4 Mg Tab.subl, 0.4 MG SL PRN Q5MIN PRN for CHEST PAIN, BOTTLE 07/10/18 Multivitamin (MULTIVITAMINS) 1 Each Tablet, 1 TAB PO DAILY for supplement, #90 TAB 3 Refills 07/10/18 Metoprolol Succinate (METOPROLOL SUCCINATE ( XL )) 25 Mg Tab.er.24h, 25 MG PO DAILY for FOR HYPERTENSION, #30 TAB 0 Refills 07/10/18 Memantine Hcl (NAMENDA) 10 Mg Tablet, 10 MG PO DAILY for dementia, TAB 07/10/18 Lisinopril (LISINOPRIL) 10 Mg Tablet, 10 MG PO DAILY for FOR HYPERTENSION, #30 TAB 0 Refills 07/10/18 Isosorbide Mononitrate (ISOSORBIDE MONONITRATE ER) 30 Mg Tab.er.24h, 30 MG PO DAILY for htn, TAB.SR 07/10/18 Guaifenesin (GUAIFENESIN) 400 Mg Tablet, 400 MG PO PRN BID for congestion, TAB 07/10/18 Furosemide (LASIX) 20 Mg Tablet, 10 MG PO DAILY for dfiuretic, TAB 07/10/18 Apixaban (ELIQUIS) 5 Mg Tablet, 5 MG PO BID for blood thinner, TAB 07/10/18 Diltiazem Hcl (CARDIZEM CD) 180 Mg Cap.er.24h, 120 MG PO DAILY for FOR HYPERTENSION, #30 CAP 0 Refills 07/10/18 Ubidecarenone (COENZYME Q10) 10 Mg Capsule, 10 MG PO DAILY for supplement, CAP 07/10/18 Cholecalciferol (Vitamin D3) (VITAMIN D) 2,000 Unit Capsule, 1 CAP PO DAILY for supplement, #30 CAP 3 Refills 07/10/18 Calcium Carbonate (CALCIUM CARBONATE) 600 Mg Tablet, 1200 MG PO TID for gerd, TAB 07/10/18 Atorvastatin Calcium (LIPITOR) 40 Mg Tablet, 1 TAB PO QHS for high cholesterol, #90 TAB 1 Refill 07/10/18 Aspirin (ASPIRIN) 81 Mg Tab.chew, 1 TAB PO DAILY for heart health, #30 TAB 3 Refills 07/10/18 Alendronate Sodium (FOSAMAX) 70 Mg Tablet, 1 TAB PO WEEKLY for osteoporosis, #4 TAB 11 Refills 07/10/18 Albuterol Sulfate (PROAIR HFA INHALER) 8.5 Gm Hfa.aer.ad, 1 PUFF INH PRN Q6HRS PRN for SHORTNESS OF BREATH, INHALER 0 Refills 07/10/18 Discontinued Reported Medications Alprazolam (ALPRAZOLAM) 0.5 Mg Tablet, 0.5 MG PO PRN DAILY PRN for ANXIETY / AGITATION, TAB 0 Refills 07/14/18 Alprazolam (XANAX) 0.5 Mg Tablet, 0.75 MG PO PRN DAILY PRN for ANXIETY / AGITATION, TAB 0 Refills 07/10/18 RUBEN GARCIA MD Jul 20, 2018 12:13
[2018-07-20] MEDS: ALPRAZolam 0.25 MG TABLET PO PRN (13:23)
--- NOTE | 2018-07-20 14:47 | NUR ---
Discharge Note: EDGAR ARANDA Discharge instructions and discharge home medications reviewed with Patient and a copy given. All questions have been answered and understanding verbalized. The following instructions and handouts were given: PO care, Mag diet Discontinued lines and drains: peripheral IVs Patient discharged to Home w/services with Friend via Wheelchair
[2018-07-20] MEDS ORDERED: APIXABAN 5 MG TABLET. PO SCH (21:00)
[2018-07-21 16:15] LABS: IMMUNOGLOBULIN A 88 mg/dL (64-422); IMMUNOGLOBULIN G 362 mg/dL (700-1600); IMMUNOGLOBULIN M 41 mg/dL (26-217)
== END 2018-07-20 14:37 | disposition home health service (06) | DRG 25 ==
LOC: EEVIPCON 12:25 → ER 12:25 → 2 NORTH 15:12
PROVIDERS: ADMIT Internal Medicine; ATTEND Internal Medicine
PROC: B3111ZZ Fluoroscopy of Right Brachiocephalic-Subclavian Artery using Low Osmolar Contrast (ICD-10-PCS; 2018-07-17)
PROC: B31N1ZZ Fluoroscopy of Other Upper Arteries using Low Osmolar Contrast (ICD-10-PCS; 2018-07-17)
PROC: B31G1ZZ Fluoroscopy of Bilateral Vertebral Arteries using Low Osmolar Contrast (ICD-10-PCS; 2018-07-17)
PROC: B3101ZZ Fluoroscopy of Thoracic Aorta using Low Osmolar Contrast (ICD-10-PCS; 2018-07-17)
PROC: B3121ZZ Fluoroscopy of Left Subclavian Artery using Low Osmolar Contrast (ICD-10-PCS; 2018-07-17)
PROC: B31R1ZZ Fluoroscopy of Intracranial Arteries using Low Osmolar Contrast (ICD-10-PCS; 2018-07-17)
PROC: B3181ZZ Fluoroscopy of Bilateral Internal Carotid Arteries using Low Osmolar Contrast (ICD-10-PCS; 2018-07-17)
PROC: B31C1ZZ Fluoroscopy of Bilateral External Carotid Arteries using Low Osmolar Contrast (ICD-10-PCS; 2018-07-17)
PROC: B3151ZZ Fluoroscopy of Bilateral Common Carotid Arteries using Low Osmolar Contrast (ICD-10-PCS; 2018-07-17)
PROC: 03CH3ZZ Extirpation of Matter from Right Common Carotid Artery, Percutaneous Approach (ICD-10-PCS; 2018-07-18)
PROC: 03CM3ZZ Extirpation of Matter from Right External Carotid Artery, Percutaneous Approach (ICD-10-PCS; 2018-07-18)
PROC: 03UH3KZ Supplement Right Common Carotid Artery with Nonautologous Tissue Substitute, Percutaneous Approach (ICD-10-PCS; 2018-07-18)
PROC: 03CK3ZZ Extirpation of Matter from Right Internal Carotid Artery, Percutaneous Approach (ICD-10-PCS; principal; 2018-07-18 09:00)
DX: I65.23 Occlusion and stenosis of bilateral carotid arteries (principal); G93.41 Metabolic encephalopathy; J96.10 Chronic respiratory failure, unspecified whether with hypoxia or hypercapnia; T17.890A Other foreign object in other parts of respiratory tract causing asphyxiation, initial encounter; J44.9 Chronic obstructive pulmonary disease, unspecified; F03.90 Unspecified dementia, unspecified severity, without behavioral disturbance, psychotic disturbance, mood disturbance, and anxiety; I48.0 Paroxysmal atrial fibrillation; I27.29 Other secondary pulmonary hypertension; I37.1 Nonrheumatic pulmonary valve insufficiency; Z99.81 Dependence on supplemental oxygen; R47.01 Aphasia; I10 Essential (primary) hypertension; K21.9 Gastro-esophageal reflux disease without esophagitis; F41.9 Anxiety disorder, unspecified; M81.0 Age-related osteoporosis without current pathological fracture; I73.9 Peripheral vascular disease, unspecified; H54.61 Unqualified visual loss, right eye, normal vision left eye; Z51.5 Encounter for palliative care; G89.29 Other chronic pain; Z88.6 Allergy status to analgesic agent; Z88.1 Allergy status to other antibiotic agents; Z88.5 Allergy status to narcotic agent; Z88.0 Allergy status to penicillin; Z88.8 Allergy status to other drugs, medicaments and biological substances; Z82.49 Family history of ischemic heart disease and other diseases of the circulatory system; Z87.891 Personal history of nicotine dependence; Z79.01 Long term (current) use of anticoagulants; Z86.73 Personal history of transient ischemic attack (TIA), and cerebral infarction without residual deficits
CPT/HCPCS: 36223; 36226; 36415; 36600; 70450; 70496; 70498; 70551; 71045; 71250; 75605; 76937; 80053; 80061; 81001; 82607; 82805; 82962; 83690; 83880; 84443; 84484; 85025; 85347; 85610; 85651; 85730; 86334; 87641; 93005; 93306; 93880; 94640; 94760; 95816; 99152; 99153; A7015; C1760; C1769; C1892; C1894; G0269; J1100; J1644; J2001; J2250; J2405; J2704; J2710; J2795; J3010; J3370; J3490; J7030; J7040; J7120; J7613; J7620; P9612; Q9966; Q9967; 92523; 97112; 97116; 97535; 99285-25

== ENCOUNTER 2018-09-19 15:23 | Inpatient (IN) | payer MEDICARE ==
[~2018-09-19] VITALS: Ht 160 cm; Wt 43.1 kg
[~2018-09-19 15:23] MED LIST: ALBU2.5V8 INH; ALEN70TA3 PO; ALPR0.5T PO; ALPR0.5T6 PO; APIX5TAB PO; ASPI-630 PO; ATOR40TA PO; CALC600T23 PO; CHOL2000 PO; DILT180C2 PO; FURO-69 PO; GUAI400T63 PO; ISOS30TA4 PO; LEVO75TA PO; LISI10TA2 PO; MAGN400O7 PO; MEMA10TA PO; METO-239 PO; MULT1TAB52 PO; NITR0.4T22 SL; OMEG100021 PO; PANT20TA2 PO; POTA20TA82 PO; PYRI200T3 PO; TRIA15OI TP; UBID10CA7 PO; UMEC1DIS IH
--- NOTE | 2018-09-19 15:47 | PHYS DOC ---
Past Medical History Past Medical History: COPD Additional Past Medical Histor: Hernia Alcohol Use: None Drug Use: None Adult General Chief Complaint Chief Complaint: ALTERED MENTAL STATUS HPI HPI Patient is a 73 year old female who brought in by EMS because of confusion. Patient called 911 and complaining of eye pain and then complaining of hernia pain and had different complaints. Patient also had multiple complaining to [facility] regarding invading her home. Patient lives at home with several cats and had meal on the wheels. Patient is alert and oriented 3 but unable to give history or the reason of calling 911. Review of Systems Review of Systems Unable to obtain because of confusion Allergies Allergies Allergies Coded Allergies Type Severity Reaction Last Updated Verified morphine Allergy Severe facial swelling 07/18/18 Yes NSAIDS (Non-Steroidal Anti-Inflamma Allergy Intermediate 07/17/18 Yes atropine Allergy Intermediate 07/17/18 Yes bacitracin Allergy Intermediate 07/17/18 Yes belladonna alkaloids Allergy Intermediate 07/17/18 Yes diphenhydramine Allergy Intermediate 07/17/18 Yes gramicidin D Allergy Intermediate 07/17/18 Yes hyoscyamine Allergy Intermediate 07/17/18 Yes ketorolac Allergy Intermediate 07/17/18 Yes neomycin Allergy Intermediate 07/17/18 Yes penicillin G Allergy Intermediate 07/17/18 Yes penicillin V Allergy Intermediate 07/17/18 Yes phenobarbital Allergy Intermediate 07/17/18 Yes polymyxin B Allergy Intermediate 07/17/18 Yes scopolamine Allergy Intermediate 07/17/18 Yes nickel Allergy Mild severe itching 07/17/18 Yes silver Allergy Mild severe itching 07/17/18 Yes Physical Exam Physical Exam Constitutional: Well nourished, mild distress, non-toxic appearance. [] HENT: Normocephalic, atraumatic, oropharynx moist. Eyes: PERRLA, EOMI, conjunctiva normal, no discharge. [] Neck: Normal range of motion, no tenderness, supple, no stridor. [] Cardiovascular:Heart rate regular rhythm, no murmur [] Lungs & Thorax: Bilateral breath sounds clear to auscultation [] Abdomen: Bowel sounds normal, soft, no tenderness, no masses, no pulsatile masses. [] Skin: Warm, dry, no erythema, no rash. [] Back: No tenderness, no CVA tenderness. [] Extremities: No tenderness, no cyanosis, no clubbing, ROM intact, no edema. [] Neurologic: Alert and oriented X 3, normal motor function, normal sensory function, no focal deficits noted. [] Psychologic: Affect anxious,, judgement abnormal, mood normal. [] Current Patient Data Vital Signs Vital Signs Date Time Temp Pulse Resp B/P (MAP) Pulse Ox O2 Delivery O2 Flow Rate FiO2 09/19/18 15:23 98.9 77 20 143/61 (88) 99 Room Air 98.9 Lab Values Laboratory Tests Test 09/19/18 16:00 White Blood Count 5.9 x10^3/uL (4.0-11.0) Red Blood Count 3.92 x10^6/uL (3.50-5.40) Hemoglobin 11.2 g/dL (12.0-15.5) L Hematocrit 34.3 % (36.0-47.0) L Mean Corpuscular Volume 87 fL (79-100) Mean Corpuscular Hemoglobin 29 pg (25-35) Mean Corpuscular Hemoglobin Concent 33 g/dL (31-37) Red Cell Distribution Width 14.9 % (11.5-14.5) H Platelet Count 269 x10^3/uL (140-400) Neutrophils (%) (Auto) 47 % (31-73) Lymphocytes (%) (Auto) 33 % (24-48) Monocytes (%) (Auto) 11 % (0-9) H Eosinophils (%) (Auto) 9 % (0-3) H Basophils (%) (Auto) 1 % (0-3) Neutrophils # (Auto) 2.8 x10^3uL (1.8-7.7) Lymphocytes # (Auto) 1.9 x10^3/uL (1.0-4.8) Monocytes # (Auto) 0.6 x10^3/uL (0.0-1.1) Eosinophils # (Auto) 0.5 x10^3/uL (0.0-0.7) Basophils # (Auto) 0.1 x10^3/uL (0.0-0.2) Prothrombin Time 15.0 SEC (11.7-14.0) H Prothrombin Time INR 1.2 (0.8-1.1) H Sodium Level 144 mmol/L (136-145) Potassium Level 3.9 mmol/L (3.5-5.1) Chloride Level 105 mmol/L (98-107) Carbon Dioxide Level 31 mmol/L (21-32) Anion Gap 8 (6-14) Blood Urea Nitrogen 23 mg/dL (7-20) H Creatinine 0.9 mg/dL (0.6-1.0) Estimated GFR (Cockcroft-Gault) 61.4 BUN/Creatinine Ratio 26 (6-20) H Glucose Level 114 mg/dL (70-99) H Lactic Acid Level 1.0 mmol/L (0.4-2.0) Calcium Level 8.6 mg/dL (8.5-10.1) Magnesium Level 1.8 mg/dL (1.8-2.4) Total Bilirubin 0.2 mg/dL (0.2-1.0) Aspartate Amino Transferase (AST) 22 U/L (15-37) Alanine Aminotransferase (ALT) 22 U/L (14-59) Alkaline Phosphatase 83 U/L (46-116) Troponin I Quantitative < 0.017 ng/mL (0.000-0.055) MG-Ljp-Y-Type Natriuretic Peptide 903 pg/mL (0-124) H Total Protein 6.2 g/dL (6.4-8.2) L Albumin 3.5 g/dL (3.4-5.0) Albumin/Globulin Ratio 1.3 (1.0-1.7) Laboratory Tests 09/19/18 16:00 Laboratory Tests 09/19/18 16:00 EKG EKG EKG interpreted by me. EKG at 1650 showed sinus bradycardia at rate of 57, no acute ST and T-wave abnormalities. Radiology/Procedures Radiology/Procedures [facility] [address] [place] [address] IMAGING REPORT Signed PATIENT: EDGAR ARANDA ACCOUNT: [id number] : 1945 LOCATION: ER AGE: 73 SEX: F EXAM STATUS: PRE ER ORD. PHYSICIAN: REGI SAUCEDO MD REASON: ALOC PROCEDURE: PORTABLE CHEST 1V PORTABLE CHEST 1V History: Altered level of consciousness Comparison: July 10, 2018 Findings: Single view of the chest is submitted. Heart size is stable. There is atherosclerotic calcification aortic arch. There is no new infiltrate, pleural fluid, pneumothorax. There is again suspected emphysema. Impression: 1. There is again suspected emphysema. Electronically signed by: Chapin Gomes MD (09/19/2018 4:19 PM) [id number] DICTATED and SIGNED BY: CHAPIN GOMES MD DATE: 09/19/[address] [facility] [address] [place] [address] IMAGING REPORT Signed PATIENT: EDGAR ARANDA ACCOUNT: [id number] : 1945 LOCATION: ER AGE: 73 SEX: F EXAM STATUS: PRE ER ORD. PHYSICIAN: REGI SAUCEDO MD REASON: ALOC PROCEDURE: CT HEAD WO CONTRAST CT HEAD WO CONTRAST History: Altered level of consciousness Comparison: July 10, 2018 Technique: Noncontrast CT imaging was performed of the head. Exposure: One or more of the following individualized dose reduction techniques were utilized for this examination: 1. Automated exposure control 2. Adjustment of the mA and/or kV according to patient size 3. Use of iterative reconstruction technique. Findings: No acute extra-axial or parenchymal hemorrhage is identified. There is no significant intra-axial mass effect, midline shift, or extra-axial fluid collection. The lloyd-white differentiation of the major vascular territories is preserved. Ventricular size is stable, within normal limits. There is atherosclerotic calcification carotid siphons bilaterally, also left intradural vertebral artery. The mastoid air cells and the visualized paranasal sinuses are aerated. No acute calvarial abnormality is identified. Impression: 1. No acute intracranial abnormality is identified by CT. Electronically signed by: Chapin Gomes MD (09/19/2018 4:21 PM) [id number] DICTATED and SIGNED BY: CHAPIN GOMES MD DATE: 09/19/18 1621 Course & Med Decision Making Course & Med Decision Making Pertinent Labs and Imaging studies reviewed. (See chart for details) Evaluation of patient in ER showed 73-year-old female patient brought in by EMS because of confusion and complaining of different problems. Patient was alert and oriented 3 but talking nonsense about her problems. Plan to admit patient for more evaluation and possible group home placement.Patient requiring admission for further evaluation and treatment. Discussed with Dr. Dalton who is in agreement with admission. Discussed findings and plan with patient and family, who acknowledge understanding and agreement. Dragon Disclaimer Dragon Disclaimer This electronic medical record was generated, in whole or in part, using a voice recognition dictation system. Departure Departure Impression: Primary Impression: Confusion Additional Impressions: Anemia CHF (congestive heart failure) Disposition: 09 ADMITTED INPATIENT (at 1615) Admitting Physician: Other (Dr. Dalton accepted admission at 1614) Condition: STABLE Referrals: UNKNOWN PCP NAME (PCP) Problem Qualifiers Additional Impressions: Anemia Anemia type: unspecified type Qualified Codes: D64.9 - Anemia, unspecified CHF (congestive heart failure) Heart failure type: unspecified Heart failure chronicity: unspecified Qualified Codes: I50.9 - Heart failure, unspecified REGI SAUCEDO MD September 19, 2018 15:47
[2018-09-19 16:15] LABS: BASO # 0.1 x10^3/uL (0.0-0.2); BASO % 1 % (0-3); EOS # 0.5 x10^3/uL (0.0-0.7); EOS % 9 % (0-3); HEMATOCRIT 34.3 % (36.0-47.0); HEMOGLOBIN 11.2 g/dL (12.0-15.5); LYMPH # 1.9 x10^3/uL (1.0-4.8); LYMPH % 33 % (24-48); MEAN CORPUSCULAR HEMOGLOBIN 29 pg (25-35); MEAN CORPUSCULAR HGB CONC 33 g/dL (31-37); MEAN CORPUSCULAR VOLUME 87 fL (79-100); MONO # 0.6 x10^3/uL (0.0-1.1); MONO % 11 % (0-9); NEUT # 2.8 x10^3uL (1.8-7.7); NEUT % 47 % (31-73); PLATELET COUNT 269 x10^3/uL (140-400); RED BLOOD COUNT 3.92 x10^6/uL (3.50-5.40); RED CELL DISTRIBUTION WIDTH 14.9 % (11.5-14.5); WHITE BLOOD COUNT 5.9 x10^3/uL (4.0-11.0)
--- NOTE | 2018-09-19 16:22 | RAD ---
PORTABLE CHEST 1V History: Altered level of consciousness Comparison: July 10, 2018 Findings: Single view of the chest is submitted. Heart size is stable. There is atherosclerotic calcification aortic arch. There is no new infiltrate, pleural fluid, pneumothorax. There is again suspected emphysema. Impression: 1. There is again suspected emphysema. Electronically signed by: Jermaine Gomes MD (09/19/2018 4:19 PM) [id number]
--- NOTE | 2018-09-19 16:24 | RAD ---
CT HEAD WO CONTRAST History: Altered level of consciousness Comparison: July 10, 2018 Technique: Noncontrast CT imaging was performed of the head. Exposure: One or more of the following individualized dose reduction techniques were utilized for this examination: 1. Automated exposure control 2. Adjustment of the mA and/or kV according to patient size 3. Use of iterative reconstruction technique. Findings: No acute extra-axial or parenchymal hemorrhage is identified. There is no significant intra-axial mass effect, midline shift, or extra-axial fluid collection. The lloyd-white differentiation of the major vascular territories is preserved. Ventricular size is stable, within normal limits. There is atherosclerotic calcification carotid siphons bilaterally, also left intradural vertebral artery. The mastoid air cells and the visualized paranasal sinuses are aerated. No acute calvarial abnormality is identified. Impression: 1. No acute intracranial abnormality is identified by CT. Electronically signed by: Jermaine Gomes MD (09/19/2018 4:21 PM) [id number]
[2018-09-19 16:26] LABS: CALCIUM 8.6 mg/dL (8.5-10.1); CREATININE 0.9 mg/dL (0.6-1.0); GFR 61.4; POTASSIUM 3.9 mmol/L (3.5-5.1)
[2018-09-19 16:31] LABS: ALBUMIN 3.5 g/dL (3.4-5.0); ALBUMIN/GLOBULIN RATIO 1.3 (1.0-1.7); MAGNESIUM 1.8 mg/dL (1.8-2.4); TOTAL BILIRUBIN 0.2 mg/dL (0.2-1.0); TOTAL PROTEIN 6.2 g/dL (6.4-8.2)
[2018-09-19] MEDS ORDERED: MAGNESIUM HYDROXIDE 2,400 MG/30 ML ORAL.SUSP. PO PRN (17:00)
[2018-09-19] MEDS ORDERED: ALBUTEROL SULFATE 2.5 MG/3 ML NEBU. INH PRN ×2 (17:00)
[2018-09-19] MEDS ORDERED: DOCUSATE SODIUM 100 MG CAPSULE. PO PRN (17:00)
[2018-09-19] MEDS ORDERED: guaiFENesin ORAL 200 MG/10 ML LIQUID. PO PRN ×2 (17:00→17:30)
[2018-09-19] MEDS ORDERED: ONDANSETRON PF 4 MG/2 ML VIAL. IV PRN (17:00)
[2018-09-19] MEDS ORDERED: TRIAMCINOLONE ACETONIDE 0.1% TOPICAL OINTMENT 15GM TUBE. TP PRN (17:00)
[2018-09-19] MEDS ORDERED: NITROGLYCERIN SUBLINGUAL 0.4 MG BOTTLE OF 25. SL PRN (17:00)
[2018-09-19 18:28] LABS: CHOLESTEROL/HDL RATIO 1.9
[2018-09-19] MEDS: CALCIUM CARBONATE 500 MG TABLET PO SCH (19:45)
[2018-09-19] MEDS: BUDESONIDE 0.5 MG/2 ML NEBU. NEB SCH (20:16)
[2018-09-19] MEDS: ALBUTEROL SULFATE 2.5 MG/3 ML NEBU. NEB SCH (20:16)
[2018-09-19 20:58] VITALS: BP 171/51
[2018-09-19] MEDS: APIXABAN 5 MG TABLET. PO SCH (21:04)
[2018-09-19] MEDS: ATORVASTATIN CALCIUM 40 MG TABLET. PO SCH (21:04)
[2018-09-19] MEDS ORDERED: MEMANTINE 10 MG TABLET. PO SCH (22:00)
[2018-09-19 23:00] VITALS: BP 119/62
--- NOTE | 2018-09-19 23:43 | PDOC1 ---
History and Physical Date of Admission Date of Admission 09/19/2018 Identification/Chief Complaint Chief Complaint I was afraid my vein was getting full again Problems: (1) Right-sided carotid artery disease Source Source: Chart review, Patient History of Present Illness History of Present Illness Patient is a 73-year-old female will multiple comorbidities including severe carotid disease who underwent right carotid endarterectomy on 07/18/2018, patient is by herself and receives [employer] Whe[employer] nurse today was checking on her and she had apparently a recurrence of symptoms and sensation that brought her into the hospital last admission. She got very concerned and asked nurse regarding her symptoms and decided to be brought to the emergency department for evaluation. The patient had a myriad of complaints regarding to the ER physician but it seems to me that most of her worries are regarding her underlying critical stenosis which she was told by her visiting nurse to could lead to a stroke. Noticed that the patient has a history of dementia and she takes memantine on a regular basis. We will check B12 levels given that the patient lives by herself and most likely has poor nutritional state which could augment her cognitive impairment. We will also explore underlying depression which could mimic dementia. Patient has a history also of COPD and is a former smoker has not smoked again since her procedure. She denies headaches denies dysphagia odynophagia and no slurred speech or facial droop was reported He denies chest pain palpitations no shortness of breath was reported no paroxysmal nocturnal dyspnea no abdominal pain nondistended. No other symptoms were reported by the patient reassurances been provided to the patient and she will be admitted for further evaluation and treatment Past Medical History Cardiovascular: HTN Pulmonary: COPD CENTRAL NERVOUS SYSTEM: Dementia GI: GERD Psych: Anxiety, Other Endocrine: Osteoporosis Past Surgical History Past Surgical History: No pertinent history Current Problem List Problem List Problems Medical Problems: (1) Anemia Status: Acute (2) CHF (congestive heart failure) Status: Acute Current Medications Current Medications Current Medications Medications (Trade) Dose Ordered Sig/Denise Start Time Stop Time Status Last Admin Dose Admin Albuterol Sulfate (Ventolin Neb Soln) 2.5 mg RTQID 09/19/18 20:00 09/19/18 20:16 2.5 MG Apixaban (Eliquis) 5 mg BID 09/19/18 21:00 09/19/18 21:04 5 MG Aspirin (Children'S Aspirin) 81 mg DAILY 09/20/18 09:00 Atorvastatin Calcium (Lipitor) 40 mg QHS 09/19/18 21:00 09/19/18 21:04 40 MG Budesonide (Pulmicort) 0.5 mg RTBID 09/19/18 20:00 09/19/18 20:16 0.5 MG Calcium Carbonate/ Glycine (Oscal) 1,000 mg TIDAFTMEAL 09/19/18 18:00 09/19/18 19:45 1,000 MG Diltiazem HCl (Cardizem 24hr Cd) 120 mg DAILY 09/20/18 09:00 Docusate Sodium (Colace) 100 mg PRN BID PRN 09/19/18 17:00 Fish Oil (Fish Oil) 1,000 mg DAILY 09/20/18 09:00 Furosemide (Lasix) 10 mg DAILY 09/20/18 09:00 Guaifenesin (Robitussin) 400 mg PRN BID PRN 09/19/18 17:30 Isosorbide Mononitrate (Imdur) 30 mg DAILY 09/20/18 09:00 Levothyroxine Sodium (Synthroid) 75 mcg DAILY06 09/20/18 06:00 Lisinopril (Prinivil) 10 mg DAILY 09/20/18 09:00 Magnesium Hydroxide (Milk Of Magnesia) 2,400 mg PRN DAILY PRN 09/19/18 17:00 Memantine (Namenda) 10 mg HS 09/20/18 21:00 Metoprolol Succinate (Toprol Xl) 25 mg DAILY 09/20/18 09:00 Multivitamins (Thera M Plus) 1 tab DAILY 09/20/18 09:00 Nitroglycerin (Nitrostat) 0.4 mg PRN Q5MIN PRN 09/19/18 17:00 Non-Formulary Medication 1 ea DAILYWSUP 09/20/18 17:00 Non-Formulary Medication (Alendronate Sodium (Fosamax)) 1 tab WEEKLY 09/26/18 09:00 UNV Non-Formulary Medication (Ubidecarenone (Coenzyme Q10)) 10 mg DAILY 09/20/18 09:00 UNV Ondansetron HCl (Zofran) 4 mg PRN Q4HRS PRN 09/19/18 17:00 Pantoprazole Sodium (Protonix) 40 mg DAILYAC 09/20/18 07:30 Potassium Chloride (Klor-Con) 10 meq [id number] 09/20/18 08:00 Pyridoxine HCl (Vitamin B-6) 200 mg DAILY 09/20/18 09:00 Triamcinolone Acetonide (Kenalog) 1 jesu PRN BID PRN 09/19/18 17:00 Vitamin D (Vitamin D3) 2,000 unit DAILY 09/20/18 09:00 Allergies Allergies Allergies Coded Allergies Type Severity Reaction Last Updated Verified morphine Allergy Severe facial swelling 07/18/18 Yes NSAIDS (Non-Steroidal Anti-Inflamma Allergy Intermediate 07/17/18 Yes atropine Allergy Intermediate 07/17/18 Yes bacitracin Allergy Intermediate 07/17/18 Yes belladonna alkaloids Allergy Intermediate 07/17/18 Yes diphenhydramine Allergy Intermediate 07/17/18 Yes gramicidin D Allergy Intermediate 07/17/18 Yes hyoscyamine Allergy Intermediate 07/17/18 Yes ketorolac Allergy Intermediate 07/17/18 Yes neomycin Allergy Intermediate 07/17/18 Yes penicillin G Allergy Intermediate 07/17/18 Yes penicillin V Allergy Intermediate 07/17/18 Yes phenobarbital Allergy Intermediate 07/17/18 Yes polymyxin B Allergy Intermediate 07/17/18 Yes scopolamine Allergy Intermediate 07/17/18 Yes nickel Allergy Mild severe itching 07/17/18 Yes silver Allergy Mild severe itching 07/17/18 Yes ROS Review of System CONSTITUTIONAL: No fever or chills EYES: No recent changes SKIN: No rash or itching CARDIOVASCULAR: No chest pain, syncope, palpitations, or edema RESPIRATORY: No SOB or cough GASTROINTESTINAL: No nausea, vomiting or abdominal pain NEUROLOGICAL: No headaches or weakness ENDOCRINE: No cold or heat intolerance GENITOURINARY: No urgency or frequency of urination MUSCULOSKELETAL: No back pain or joint pain LYMPHATICS: No enlarged lymph nodes PSYCHIATRIC: No anxiety or depression Physical Exam Physical Exam GEN.: No apparent distress. Alert and oriented. HEENT: Head is normocephalic, atraumatic NECK: Supple. LUNGS: Clear to auscultation. HEART: RRR, S1, S2 present. Peripheral pulses intact ABDOMEN: Soft, nontender. Positive bowel sounds. EXTREMITIES: Without any cyanosis. NEUROLOGIC: Normal speech, normal tone PSYCHIATRIC: Normal affect, normal mood. SKIN: No ulcerations Vitals Vitals Vital Signs Date Time Temp Pulse Resp B/P (MAP) Pulse Ox O2 Delivery O2 Flow Rate FiO2 09/19/18 20:58 97.7 68 18 171/51 (91) 94 Nasal Cannula 2.0 97.7 Labs Labs Laboratory Tests Test 09/19/18 16:00 White Blood Count 5.9 x10^3/uL (4.0-11.0) Red Blood Count 3.92 x10^6/uL (3.50-5.40) Hemoglobin 11.2 g/dL (12.0-15.5) Hematocrit 34.3 % (36.0-47.0) Mean Corpuscular Volume 87 fL (79-100) Mean Corpuscular Hemoglobin 29 pg (25-35) Mean Corpuscular Hemoglobin Concent 33 g/dL (31-37) Red Cell Distribution Width 14.9 % (11.5-14.5) Platelet Count 269 x10^3/uL (140-400) Neutrophils (%) (Auto) 47 % (31-73) Lymphocytes (%) (Auto) 33 % (24-48) Monocytes (%) (Auto) 11 % (0-9) Eosinophils (%) (Auto) 9 % (0-3) Basophils (%) (Auto) 1 % (0-3) Neutrophils # (Auto) 2.8 x10^3uL (1.8-7.7) Lymphocytes # (Auto) 1.9 x10^3/uL (1.0-4.8) Monocytes # (Auto) 0.6 x10^3/uL (0.0-1.1) Eosinophils # (Auto) 0.5 x10^3/uL (0.0-0.7) Basophils # (Auto) 0.1 x10^3/uL (0.0-0.2) Prothrombin Time 15.0 SEC (11.7-14.0) Prothromb Time International Ratio 1.2 (0.8-1.1) Sodium Level 144 mmol/L (136-145) Potassium Level 3.9 mmol/L (3.5-5.1) Chloride Level 105 mmol/L (98-107) Carbon Dioxide Level 31 mmol/L (21-32) Anion Gap 8 (6-14) Blood Urea Nitrogen 23 mg/dL (7-20) Creatinine 0.9 mg/dL (0.6-1.0) Estimated GFR (Cockcroft-Gault) 61.4 BUN/Creatinine Ratio 26 (6-20) Glucose Level 114 mg/dL (70-99) Lactic Acid Level 1.0 mmol/L (0.4-2.0) Calcium Level 8.6 mg/dL (8.5-10.1) Magnesium Level 1.8 mg/dL (1.8-2.4) Total Bilirubin 0.2 mg/dL (0.2-1.0) Aspartate Amino Transf (AST/SGOT) 22 U/L (15-37) Alanine Aminotransferase (ALT/SGPT) 22 U/L (14-59) Alkaline Phosphatase 83 U/L (46-116) Troponin I Quantitative < 0.017 ng/mL (0.000-0.055) DL-Bgc-Z-Type Natriuretic Peptide 903 pg/mL (0-124) Total Protein 6.2 g/dL (6.4-8.2) Albumin 3.5 g/dL (3.4-5.0) Albumin/Globulin Ratio 1.3 (1.0-1.7) Triglycerides Level 78 mg/dL (0-150) Cholesterol Level 137 mg/dL (0-200) LDL Cholesterol, Calculated 48 mg/dL (0-100) VLDL Cholesterol, Calculated 16 mg/dL (0-40) Non-HDL Cholesterol Calculated 64 mg/dL (0-129) HDL Cholesterol 73 mg/dL (40-60) Cholesterol/HDL Ratio 1.9 Laboratory Tests Test 09/19/18 16:00 White Blood Count 5.9 x10^3/uL (4.0-11.0) Red Blood Count 3.92 x10^6/uL (3.50-5.40) Hemoglobin 11.2 g/dL (12.0-15.5) Hematocrit 34.3 % (36.0-47.0) Mean Corpuscular Volume 87 fL (79-100) Mean Corpuscular Hemoglobin 29 pg (25-35) Mean Corpuscular Hemoglobin Concent 33 g/dL (31-37) Red Cell Distribution Width 14.9 % (11.5-14.5) Platelet Count 269 x10^3/uL (140-400) Neutrophils (%) (Auto) 47 % (31-73) Lymphocytes (%) (Auto) 33 % (24-48) Monocytes (%) (Auto) 11 % (0-9) Eosinophils (%) (Auto) 9 % (0-3) Basophils (%) (Auto) 1 % (0-3) Neutrophils # (Auto) 2.8 x10^3uL (1.8-7.7) Lymphocytes # (Auto) 1.9 x10^3/uL (1.0-4.8) Monocytes # (Auto) 0.6 x10^3/uL (0.0-1.1) Eosinophils # (Auto) 0.5 x10^3/uL (0.0-0.7) Basophils # (Auto) 0.1 x10^3/uL (0.0-0.2) Prothrombin Time 15.0 SEC (11.7-14.0) Prothromb Time International Ratio 1.2 (0.8-1.1) Sodium Level 144 mmol/L (136-145) Potassium Level 3.9 mmol/L (3.5-5.1) Chloride Level 105 mmol/L (98-107) Carbon Dioxide Level 31 mmol/L (21-32) Anion Gap 8 (6-14) Blood Urea Nitrogen 23 mg/dL (7-20) Creatinine 0.9 mg/dL (0.6-1.0) Estimated GFR (Cockcroft-Gault) 61.4 BUN/Creatinine Ratio 26 (6-20) Glucose Level 114 mg/dL (70-99) Lactic Acid Level 1.0 mmol/L (0.4-2.0) Calcium Level 8.6 mg/dL (8.5-10.1) Magnesium Level 1.8 mg/dL (1.8-2.4) Total Bilirubin 0.2 mg/dL (0.2-1.0) Aspartate Amino Transf (AST/SGOT) 22 U/L (15-37) Alanine Aminotransferase (ALT/SGPT) 22 U/L (14-59) Alkaline Phosphatase 83 U/L (46-116) Troponin I Quantitative < 0.017 ng/mL (0.000-0.055) AU-Feb-M-Type Natriuretic Peptide 903 pg/mL (0-124) Total Protein 6.2 g/dL (6.4-8.2) Albumin 3.5 g/dL (3.4-5.0) Albumin/Globulin Ratio 1.3 (1.0-1.7) Triglycerides Level 78 mg/dL (0-150) Cholesterol Level 137 mg/dL (0-200) LDL Cholesterol, Calculated 48 mg/dL (0-100) VLDL Cholesterol, Calculated 16 mg/dL (0-40) Non-HDL Cholesterol Calculated 64 mg/dL (0-129) HDL Cholesterol 73 mg/dL (40-60) Cholesterol/HDL Ratio 1.9 VTE Prophylaxis Ordered VTE Prophylaxis Devices: Yes VTE Pharmacological Prophylaxi: Yes Assessment/Plan Assessment/Plan Severe carotid disease with near occlusion status post right carotid endarterectomy in July 2018 History of mild cognitive impairment Center of dyslipidemia Chronic anticoagulation with a pixie upon History of essential hypertension History of hypothyroidism on replacement therapy Normocytic anemia of chronic disease most likely Depression? Plan: We'll try to consult with Dr. Estrella in the a.m. Resume home medications Further imaging studies pending discussion with vascular surgeon Supportive measures Follow neurological exams Follow hemodynamics Further recommendations based on the clinical course DVT prophylaxis patient on full anticoagulation with YELITZA Mccabe MD September 19, 2018 23:42
--- NOTE | 2018-09-20 00:38 | NUR ---
patient admission Pt arrived to the unit on day shift before this RN got on shift. Patient information guide packet was explained and given to pt. All questions and concerns regarding pt's POC was addressed and answered. Lisa from Dr. Dalton for pt to use home inhaler, inhaler sent down to pharmacy, labeled, and put in pt's medication bin. Pt also have a bottle of nitro that was sent down to pharmacy to keep at this time. Pt verbalized understanding. Pt made comfortable in bed. Will continue to monitor pt closely.
[2018-09-20 03:00] VITALS: BP 143/47
[2018-09-20 03:11] LABS: BILIRUBIN,URINE NEGATIVE (NEG); CLARITY,URINE CLOUDY; COLOR,URINE YELLOW; NITRITE,URINE NEGATIVE (NEG); PH,URINE 7.5; PROTEIN,URINE NEGATIVE (NEG-TRACE); UROBILINOGEN,URINE 0.2 mg/dL (0.2 mg/dL)
[2018-09-20 03:16] LABS: SQUAMOUS EPITHELIAL CELL,UR FEW /LPF
[2018-09-20 03:17] LABS: AMORPHOUS SEDIMENT,UR PRESENT /HPF; BACTERIA,URINE FEW /HPF (0-FEW); RBC,URINE OCC /HPF (0-2)
[2018-09-20 03:27] LABS: AMPHETAMINE/METHAMPHETAMINE NEG (NEG); BARBITURATES NEG (NEG); BENZODIAZEPINES NEG (NEG); CANNABINOIDS NEG (NEG); COCAINE NEG (NEG); METHADONE NEG (NEG); OPIATES NEG (NEG); PHENCYCLIDINE NEG (NEG)
[2018-09-20] MEDS ORDERED: LEVO88TA4 PO (05:37)
[2018-09-20] MEDS ORDERED: LEVOTHYROXINE 75 MCG TABLET PO SCH (06:00)
[2018-09-20] MEDS: LEVOTHYROXINE 88 MCG TABLET PO SCH (06:20)
[2018-09-20 07:00] VITALS: BP 168/57
[2018-09-20] MEDS: ALBUTEROL SULFATE 2.5 MG/3 ML NEBU. NEB SCH ×4 (07:38→19:42)
[2018-09-20] MEDS: BUDESONIDE 0.5 MG/2 ML NEBU. NEB SCH ×2 (07:38→19:42)
[2018-09-20] MEDS: PANTOPRAZOLE 40 MG TABLET.DR. PO SCH (07:44)
[2018-09-20] MEDS ORDERED: MEMANTINE 10 MG TABLET. PO SCH (09:00)
[2018-09-20] MEDS ORDERED: UBIDECARENONE 10 MG PO SCH (09:00)
[2018-09-20] MEDS: LISINOPRIL 10 MG TABLET PO SCH (09:01)
[2018-09-20] MEDS: FUROSEMIDE 20 MG TABLET PO SCH (09:01)
[2018-09-20] MEDS: PYRIDOXINE 50 MG TABLET. PO SCH (09:01)
[2018-09-20] MEDS: OMEGA-3 FATTY ACIDS/FISH OIL 1,000 MG CAPSULE. PO SCH (09:02)
[2018-09-20] MEDS: CHOLECALCIFEROL (VITAMIN D3) 1,000 UNIT TABLET PO SCH (09:02)
[2018-09-20] MEDS: CALCIUM CARBONATE 500 MG TABLET PO SCH ×3 (09:02→18:24)
[2018-09-20] MEDS: ISOSORBIDE MONONITRATE ER 30 MG TAB.ER.24H PO SCH (09:02)
[2018-09-20] MEDS: APIXABAN 5 MG TABLET. PO SCH ×2 (09:02→21:47)
[2018-09-20] MEDS: METOPROLOL SUCC 24HR ER 25 MG TAB.ER.24H. PO SCH (09:02)
[2018-09-20] MEDS: MULTIVITAMIN with MINERAL TABLET. PO SCH (09:03)
[2018-09-20] MEDS: ASPIRIN CHEWABLE 81 MG TABLET. PO SCH (09:03)
[2018-09-20] MEDS: POTASSIUM CHLORIDE 10 MEQ TABLET.ER. PO SCH (09:03)
[2018-09-20 11:00] VITALS: BP 156/52
[2018-09-20 15:00] VITALS: BP 130/40
[2018-09-20] MEDS ORDERED: ANORO INH SCH (17:00)
--- NOTE | 2018-09-20 18:08 | PDOC ---
PROGRESS NOTES Chief Complaint Chief Complaint Severe carotid disease with near occlusion status post right carotid endarterectomy in July 2018 History of mild cognitive impairment Center of dyslipidemia Chronic anticoagulation with a pixie upon History of essential hypertension History of hypothyroidism on replacement therapy Normocytic anemia of chronic disease most likely Depression? Ventral hernia currently asymptomatic Plan: Discussed with vascular surgery over the phone. She will need to follow up with Dr Estrella in the outpatient setting will request telephonic case manager evalutio for possible placement Resume home medications Supportive measures Follow neurological exams Follow hemodynamics Further recommendations based on the clinical course DVT prophylaxis patient on full anticoagulation with Eliquis History of Present Illness History of Present Illness Feeling better compared to yesterday, discussed with Dr Lemus partner, recomm endations based on clinical course. Vitals Vitals Vital Signs Date Time Temp Pulse Resp B/P (MAP) Pulse Ox O2 Delivery O2 Flow Rate FiO2 09/20/18 15:21 96 Room Air 09/20/18 15:00 97.7 49 18 130/40 (70) 2.0 97.7 Physical Exam General: Alert, Oriented X3, Cooperative Heart: Regular rate, Normal S1, Normal S2 Lungs: Clear Abdomen: Normal bowel sounds, Soft Extremities: No clubbing, No cyanosis Skin: No rashes, No breakdown Labs LABS Laboratory Tests Test 09/20/18 03:00 Urine Collection Type Unknown Urine Color Yellow Urine Clarity Cloudy Urine pH 7.5 Urine Specific [place] 1.015 Urine Protein Negative mg/dL (NEG-TRACE) Urine Glucose (UA) Negative mg/dL (NEG) Urine Ketones (Stick) Negative mg/dL (NEG) Urine Blood Negative (NEG) Urine Nitrite Negative (NEG) Urine Bilirubin Negative (NEG) Urine Urobilinogen Dipstick 0.2 mg/dL (0.2 mg/dL) Urine Leukocyte Esterase Trace (NEG) Urine RBC Occ /HPF (0-2) Urine WBC 1-4 /HPF (0-4) Urine Squamous Epithelial Cells Few /LPF Urine Amorphous Sediment Present /HPF Urine Bacteria Few /HPF (0-FEW) Urine Mucus Slight /LPF Urine Opiates Screen Neg (NEG) Urine Methadone Screen Neg (NEG) Urine Barbiturates Neg (NEG) Urine Phencyclidine Screen Neg (NEG) Urine Amphetamine/Methamphetamine Neg (NEG) Urine Benzodiazepines Screen Neg (NEG) Urine Cocaine Screen Neg (NEG) Urine Cannabinoids Screen Neg (NEG) Urine Ethyl Alcohol Neg (NEG) Review of Systems Review of Systems as per hpi otherwise 10 point review of system negative. Assessment and Plan Assessmemt and Plan Problems Medical Problems: (1) Anemia Status: Acute (2) CHF (congestive heart failure) Status: Acute Comment Review of Relevant I have reviewed the following items vidal (where applicable) has been applied. Labs Laboratory Tests Test 09/19/18 16:00 09/20/18 03:00 White Blood Count 5.9 x10^3/uL (4.0-11.0) Red Blood Count 3.92 x10^6/uL (3.50-5.40) Hemoglobin 11.2 g/dL (12.0-15.5) Hematocrit 34.3 % (36.0-47.0) Mean Corpuscular Volume 87 fL (79-100) Mean Corpuscular Hemoglobin 29 pg (25-35) Mean Corpuscular Hemoglobin Concent 33 g/dL (31-37) Red Cell Distribution Width 14.9 % (11.5-14.5) Platelet Count 269 x10^3/uL (140-400) Neutrophils (%) (Auto) 47 % (31-73) Lymphocytes (%) (Auto) 33 % (24-48) Monocytes (%) (Auto) 11 % (0-9) Eosinophils (%) (Auto) 9 % (0-3) Basophils (%) (Auto) 1 % (0-3) Neutrophils # (Auto) 2.8 x10^3uL (1.8-7.7) Lymphocytes # (Auto) 1.9 x10^3/uL (1.0-4.8) Monocytes # (Auto) 0.6 x10^3/uL (0.0-1.1) Eosinophils # (Auto) 0.5 x10^3/uL (0.0-0.7) Basophils # (Auto) 0.1 x10^3/uL (0.0-0.2) Prothrombin Time 15.0 SEC (11.7-14.0) Prothromb Time International Ratio 1.2 (0.8-1.1) Sodium Level 144 mmol/L (136-145) Potassium Level 3.9 mmol/L (3.5-5.1) Chloride Level 105 mmol/L (98-107) Carbon Dioxide Level 31 mmol/L (21-32) Anion Gap 8 (6-14) Blood Urea Nitrogen 23 mg/dL (7-20) Creatinine 0.9 mg/dL (0.6-1.0) Estimated GFR (Cockcroft-Gault) 61.4 BUN/Creatinine Ratio 26 (6-20) Glucose Level 114 mg/dL (70-99) Lactic Acid Level 1.0 mmol/L (0.4-2.0) Calcium Level 8.6 mg/dL (8.5-10.1) Magnesium Level 1.8 mg/dL (1.8-2.4) Total Bilirubin 0.2 mg/dL (0.2-1.0) Aspartate Amino Transf (AST/SGOT) 22 U/L (15-37) Alanine Aminotransferase (ALT/SGPT) 22 U/L (14-59) Alkaline Phosphatase 83 U/L (46-116) Troponin I Quantitative < 0.017 ng/mL (0.000-0.055) DW-Mst-T-Type Natriuretic Peptide 903 pg/mL (0-124) Total Protein 6.2 g/dL (6.4-8.2) Albumin 3.5 g/dL (3.4-5.0) Albumin/Globulin Ratio 1.3 (1.0-1.7) Triglycerides Level 78 mg/dL (0-150) Cholesterol Level 137 mg/dL (0-200) LDL Cholesterol, Calculated 48 mg/dL (0-100) VLDL Cholesterol, Calculated 16 mg/dL (0-40) Non-HDL Cholesterol Calculated 64 mg/dL (0-129) HDL Cholesterol 73 mg/dL (40-60) Cholesterol/HDL Ratio 1.9 Urine Collection Type Unknown Urine Color Yellow Urine Clarity Cloudy Urine pH 7.5 Urine Specific [place] 1.015 Urine Protein Negative mg/dL (NEG-TRACE) Urine Glucose (UA) Negative mg/dL (NEG) Urine Ketones (Stick) Negative mg/dL (NEG) Urine Blood Negative (NEG) Urine Nitrite Negative (NEG) Urine Bilirubin Negative (NEG) Urine Urobilinogen Dipstick 0.2 mg/dL (0.2 mg/dL) Urine Leukocyte Esterase Trace (NEG) Urine RBC Occ /HPF (0-2) Urine WBC 1-4 /HPF (0-4) Urine Squamous Epithelial Cells Few /LPF Urine Amorphous Sediment Present /HPF Urine Bacteria Few /HPF (0-FEW) Urine Mucus Slight /LPF Urine Opiates Screen Neg (NEG) Urine Methadone Screen Neg (NEG) Urine Barbiturates Neg (NEG) Urine Phencyclidine Screen Neg (NEG) Urine Amphetamine/Methamphetamine Neg (NEG) Urine Benzodiazepines Screen Neg (NEG) Urine Cocaine Screen Neg (NEG) Urine Cannabinoids Screen Neg (NEG) Urine Ethyl Alcohol Neg (NEG) Laboratory Tests Test 09/20/18 03:00 Urine Collection Type Unknown Urine Color Yellow Urine Clarity Cloudy Urine pH 7.5 Urine Specific [place] 1.015 Urine Protein Negative mg/dL (NEG-TRACE) Urine Glucose (UA) Negative mg/dL (NEG) Urine Ketones (Stick) Negative mg/dL (NEG) Urine Blood Negative (NEG) Urine Nitrite Negative (NEG) Urine Bilirubin Negative (NEG) Urine Urobilinogen Dipstick 0.2 mg/dL (0.2 mg/dL) Urine Leukocyte Esterase Trace (NEG) Urine RBC Occ /HPF (0-2) Urine WBC 1-4 /HPF (0-4) Urine Squamous Epithelial Cells Few /LPF Urine Amorphous Sediment Present /HPF Urine Bacteria Few /HPF (0-FEW) Urine Mucus Slight /LPF Urine Opiates Screen Neg (NEG) Urine Methadone Screen Neg (NEG) Urine Barbiturates Neg (NEG) Urine Phencyclidine Screen Neg (NEG) Urine Amphetamine/Methamphetamine Neg (NEG) Urine Benzodiazepines Screen Neg (NEG) Urine Cocaine Screen Neg (NEG) Urine Cannabinoids Screen Neg (NEG) Urine Ethyl Alcohol Neg (NEG) Microbiology 09/19/18 Blood Culture - Preliminary, Resulted NO GROWTH AFTER 1 DAY Medications Current Medications Ondansetron HCl (Zofran) 4 mg PRN Q4HRS PRN IV NAUSEA/VOMITING; Start 09/19/18 at 17:00 Docusate Sodium (Colace) 100 mg PRN BID PRN PO CONSTIPATION; Start 09/19/18 at 17:00 Albuterol Sulfate (Ventolin Neb Soln) 2.5 mg PRN Q4HRS PRN NEB SHORTNESS OF BREATH; Start 09/19/18 at 17:00 Guaifenesin (Robitussin) 200 mg PRN Q4HRS PRN PO COUGH; Start 09/19/18 at 17:00 Albuterol Sulfate (Ventolin Neb Soln) 8.5 mg PRN Q6HRS PRN INH SHORTNESS OF BREATH; Start 09/19/18 at 17:00; Status UNV Albuterol Sulfate (Ventolin Neb Soln) 8.5 mg PRN Q6HRS PRN INH SHORTNESS OF BREATH; Start 09/19/18 at 17:00; Status UNV Apixaban (Eliquis) 5 mg BID PO Last administered on 09/20/18at 09:02; Start 09/19/18 at 21:00 Aspirin (Children'S Aspirin) 81 mg DAILY PO Last administered on 09/20/18at 09:03; Start 09/20/18 at 09:00 Atorvastatin Calcium (Lipitor) 40 mg QHS PO Last administered on 09/19/18at 21:04; Start 09/19/18 at 21:00 Furosemide (Lasix) 10 mg DAILY PO Last administered on 09/20/18at 09:01; Start 09/20/18 at 09:00 Isosorbide Mononitrate (Imdur) 30 mg DAILY PO Last administered on 09/20/18at 09:02; Start 09/20/18 at 09:00 Levothyroxine Sodium (Synthroid) 75 mcg DAILY06 PO ; Start 09/20/18 at 06:00; Stop 09/20/18 at 06:00; Status DC Lisinopril (Prinivil) 10 mg DAILY PO Last administered on 09/20/18at 09:01; Start 09/20/18 at 09:00 Magnesium Hydroxide (Milk Of Magnesia) 2,400 mg PRN DAILY PRN PO CONSTIPATION; Start 09/19/18 at 17:00 Metoprolol Succinate (Toprol Xl) 25 mg DAILY PO Last administered on 09/20/18at 09:02; Start 09/20/18 at 09:00 Nitroglycerin (Nitrostat) 0.4 mg PRN Q5MIN PRN SL CHEST PAIN; Start 09/19/18 at 17:00 Triamcinolone Acetonide (Kenalog) 1 mayank PRN BID PRN TP AFFECTED AREA; Start 09/19/18 at 17:00 Non-Formulary Medication (Alendronate Sodium (Fosamax)) 1 tab WEEKLY PO ; Start 09/26/18 at 09:00; Status UNV Calcium Carbonate/ Glycine (Oscal) 1,000 mg TIDAFTMEAL PO Last administered on 09/20/18at 13:26; Start 09/19/18 at 18:00 Vitamin D (Vitamin D3) 2,000 unit DAILY PO Last administered on 09/20/18 09:02; Start 09/20/18 at 09:00 Diltiazem HCl (Cardizem 24hr Cd) 120 mg DAILY PO Last administered on 09/20/18 09:02; Start 09/20/18 at 09:00 Guaifenesin (Robitussin) 400 mg PRN BID PRN PO COUGH; Start 09/19/18 at 17:30 Memantine (Namenda) 10 mg DAILY PO ; Start 09/20/18 at 09:00; Stop 09/20/18 at 09:00; Status DC Multivitamins (Thera M Plus) 1 tab DAILY PO Last administered on 09/20/18 09:03; Start 09/20/18 at 09:00 Fish Oil (Fish Oil) 1,000 mg DAILY PO Last administered on 09/20/18at 09:02; Start 09/20/18 at 09:00 Pantoprazole Sodium (Protonix) 40 mg DAILYAC PO Last administered on 09/20/18 07:44; Start 09/20/18 at 07:30 Potassium Chloride (Klor-Con) 10 meq DAILYWBKFT PO Last administered on 09/20/18 09:03; Start 09/20/18 at 08:00 Pyridoxine HCl (Vitamin B-6) 200 mg DAILY PO Last administered on 09/20/18at 09:01; Start 09/20/18 at 09:00 Non-Formulary Medication (Ubidecarenone (Coenzyme Q10)) 10 mg DAILY PO ; Start 09/20/18 at 09:00; Status UNV Budesonide (Pulmicort) 0.5 mg RTBID NEB Last administered on 09/20/18at 07:38; Start 09/19/18 at 20:00 Albuterol Sulfate (Ventolin Neb Soln) 2.5 mg RTQID NEB Last administered on 09/20/18at 15:21; Start 09/19/18 at 20:00 Memantine (Namenda) 10 mg DAILY PO Last administered on 09/19/18at 22:08; Start 09/19/18 at 22:00; Stop 09/19/18 at 22:20; Status DC Non-Formulary Medication 1 ea DAILYWSUP INH ; Start 09/20/18 at 17:00; Stop 09/20/18 at 17:00; Status DC Memantine (Namenda) 10 mg HS PO ; Start 09/20/18 at 21:00 Levothyroxine Sodium (Synthroid) 88 mcg DAILY06 PO Last administered on 09/20/18at 06:20; Start 09/20/18 at 06:00 Non-Formulary Medication 1 ea DAILY@1200 INH ; Start 09/21/18 at 12:00 Magnesium Hydroxide (Milk Of Magnesia) 2,400 mg DAILY PO ; Start 09/21/18 at 09:00 Active Scripts Active Milk Of Magnesia (Magnesium Hydroxide) 400 Mg/5 Ml Oral.susp 2,400 Mg PO PRN DAILY PRN 14 Days Reported Levothyroxine Sodium 88 Mcg Tablet 1 Tab PO DAILY Anoro Ellipta 62.5-25 Mcg Inh (Umeclidinium Brm/Vilanterol Tr) 1 Each Disk.w.dev 1 Each IH DAILY Triamcinolone Acetonide 0.1% Oint (Triamcinolone Acetonide) 15 Gm Oint...g. 1 Mayank TP PRN BID MIX WITH EUCERIN DIRECTED BY PHYSICIAN B-6 (Pyridoxine HCl (Vitamin B6)) 200 Mg Tablet.er 200 Mg PO DAILY Proair Hfa Inhaler (Albuterol Sulfate) 8.5 Gm Hfa.aer.ad 2 Puff INH PRN Q6HRS PRN Potassium Chloride 20 Meq Tablet.er 99 Mg PO DAILY Protonix (Pantoprazole Sodium) 20 Mg Tablet.dr 40 Mg PO DAILY Fish Oil 1,000 mg Softgel (Golden-3/Dha/Epa/Fish Oil) 1,000 Mg Capsule 1,000 Mg PO DAILY NITROGLYCERIN SubLingual (Nitroglycerin) 0.4 Mg Tab.subl 0.4 Mg SL PRN Q5MIN PRN Multivitamins (Multivitamin) 1 Each Tablet 1 Tab PO DAILY Metoprolol Succinate ( Xl ) (Metoprolol Succinate) 25 Mg Tab.er.24h 25 Mg PO DAILY Namenda (Memantine Hcl) 10 Mg Tablet 10 Mg PO DAILY Lisinopril 10 Mg Tablet 10 Mg PO DAILY Isosorbide Mononitrate Er (Isosorbide Mononitrate) 30 Mg Tab.er.24h 30 Mg PO DAILY Guaifenesin 400 Mg Tablet 400 Mg PO PRN BID Lasix (Furosemide) 20 Mg Tablet 10 Mg PO DAILY Eliquis (Apixaban) 5 Mg Tablet 5 Mg PO BID Cardizem Cd (Diltiazem Hcl) 180 Mg Cap.er.24h 120 Mg PO DAILY Coenzyme Q10 (Ubidecarenone) 10 Mg Capsule 10 Mg PO DAILY Vitamin D (Cholecalciferol (Vitamin D3)) 2,000 Unit Capsule 1 Cap PO DAILY Calcium Carbonate 600 Mg Tablet 1,200 Mg PO TID Lipitor (Atorvastatin Calcium) 40 Mg Tablet 1 Tab PO QHS Aspirin 81 Mg Tab.chew 1 Tab PO DAILY Fosamax (Alendronate Sodium) 70 Mg Tablet 1 Tab PO WEEKLY Proair Hfa Inhaler (Albuterol Sulfate) 8.5 Gm Hfa.aer.ad 1 Puff INH PRN Q6HRS PRN Vitals/I & O Vital Sign - Last 24 Hours 09/19/18 09/19/18 09/19/18 09/19/18 19:47 20:18 20:58 23:00 Temp 97.7 97.9 97.7 97.9 Pulse 68 59 Resp 18 18 B/P (MAP) 171/51 (91) 119/62 (81) Pulse Ox 100 94 99 O2 Delivery Nasal Cannula Nasal Cannula Nasal Cannula Nasal Cannula O2 Flow Rate 2.0 2.0 2.0 2.0 09/20/18 09/20/18 09/20/18 09/20/18 03:00 07:00 07:39 09:01 Temp 98.1 98.1 98.1 98.1 Pulse 56 55 55 Resp 18 B/P (MAP) 143/47 (79) 168/57 (94) 168/57 Pulse Ox 98 96 96 O2 Delivery Nasal Cannula Nasal Cannula Room Air O2 Flow Rate 2.0 2.0 09/20/18 09/20/18 09/20/18 09/20/18 09:02 09:02 09:02 11:00 Temp 98.3 98.3 Pulse 55 55 55 49 Resp 20 B/P (MAP) 168/57 168/57 168/57 156/52 (86) Pulse Ox 96 O2 Delivery Nasal Cannula O2 Flow Rate 2.0 09/20/18 09/20/18 09/20/18 11:30 15:00 15:21 Temp 97.7 97.7 Pulse 49 Resp 18 B/P (MAP) 130/40 (70) Pulse Ox 98 96 O2 Delivery Room Air Nasal Cannula Room Air O2 Flow Rate 2.0 Intake and Output 09/19/18 09/19/18 09/20/18 14:59 22:59 06:59 Intake Total 360 ml Output Total 0 ml 400 ml Balance 0 ml -40 ml YELITZA EDDY MD September 20, 2018 18:08
[2018-09-20 19:00] VITALS: BP 141/55
[2018-09-20] MEDS: MEMANTINE 10 MG TABLET. PO SCH (21:47)
[2018-09-20] MEDS: ATORVASTATIN CALCIUM 40 MG TABLET. PO SCH (21:47)
[2018-09-20 23:00] VITALS: BP 125/57
[2018-09-21 03:00] VITALS: BP 141/69
[2018-09-21] MEDS: ALBUTEROL SULFATE 2.5 MG/3 ML NEBU. NEB PRN (04:00)
[2018-09-21] MEDS: LEVOTHYROXINE 88 MCG TABLET PO SCH (06:00)
[2018-09-21 07:00] VITALS: BP 174/59
[2018-09-21] MEDS: PANTOPRAZOLE 40 MG TABLET.DR. PO SCH (07:25)
[2018-09-21] MEDS: FUROSEMIDE 20 MG TABLET PO SCH (08:39)
[2018-09-21] MEDS: CHOLECALCIFEROL (VITAMIN D3) 1,000 UNIT TABLET PO SCH (08:39)
[2018-09-21] MEDS: METOPROLOL SUCC 24HR ER 25 MG TAB.ER.24H. PO SCH (08:40)
[2018-09-21] MEDS: MULTIVITAMIN with MINERAL TABLET. PO SCH (08:40)
[2018-09-21] MEDS: ISOSORBIDE MONONITRATE ER 30 MG TAB.ER.24H PO SCH (08:40)
[2018-09-21] MEDS: LISINOPRIL 10 MG TABLET PO SCH (08:40)
[2018-09-21] MEDS: OMEGA-3 FATTY ACIDS/FISH OIL 1,000 MG CAPSULE. PO SCH (08:40)
[2018-09-21] MEDS: CALCIUM CARBONATE 500 MG TABLET PO SCH ×3 (08:41→17:25)
[2018-09-21] MEDS: PYRIDOXINE 50 MG TABLET. PO SCH (08:41)
[2018-09-21] MEDS: ASPIRIN CHEWABLE 81 MG TABLET. PO SCH (08:41)
[2018-09-21] MEDS: POTASSIUM CHLORIDE 10 MEQ TABLET.ER. PO SCH (08:41)
[2018-09-21] MEDS: APIXABAN 5 MG TABLET. PO SCH ×2 (08:41→20:48)
[2018-09-21] MEDS: MAGNESIUM HYDROXIDE 2,400 MG/30 ML ORAL.SUSP. PO SCH (08:41)
[2018-09-21 11:00] VITALS: BP 133/50
--- NOTE | 2018-09-21 11:25 | EKG ---
[facility] [address] [place] [id number] Test Date: 2018-09-19 Test Time: 16:50:10 Pat Name: EDGAR ARANDA Department: Room: 526 1 Gender: F Recovery Specialist: : [id number] Requested By: REGI SAUCEDO Order Number: [id number] Reading MD: Luisito Samson Measurements Intervals [place] Rate: 56 P: 62 NV: 194 QRS: 40 QRSD: 92 T: 60 QT: 460 QTc: 450 Interpretive Statements SINUS RHYTHM NORMAL ECG Electronically Signed On 10-10-2018 12:31:45 CDT by Luisito Samson
[2018-09-21] MEDS: ANORO ELLIPTA INH SCH (11:47)
--- NOTE | 2018-09-21 12:03 | PDOC ---
PROGRESS NOTES Chief Complaint Chief Complaint Severe carotid disease with near occlusion status post right carotid endarterectomy in July 2018 History of mild cognitive impairment Center of dyslipidemia Chronic anticoagulation with a pixie upon History of essential hypertension History of hypothyroidism on replacement therapy Normocytic anemia of chronic disease most likely Depression? Ventral hernia currently asymptomatic, patient quite concerned. I have discussed at length that unless this becomes a strangulate it hernia patient currently is on a anticoagulant that would make her a very high risk cardiac and surgical candidate Plan: Discussed with vascular surgery over the phone. She will need to follow up with Dr Estrella in the outpatient setting, we'll request for a follow-up appointment with Dr. Estrella. This will be done in the a.m. since the office is currently closed will request cyanide case hardener evalution in the a.m. for possible placement Resume home medications Supportive measures Patient medically and neurologically stable Follow hemodynamics Further recommendations based on the clinical course DVT prophylaxis patient on full anticoagulation with Eliquis History of Present Illness History of Present Illness Feeling better compared to yesterday, patient has not had neurological deficits no headache no chest pain no palpitations and the myriad of symptoms that she came complaining off very much result. Still her main concern is making sure that from her endarterectomy standpoint of view she is doing well order has been placed to call Dr. rosas this to arrange for follow-up and case management will be also consulted in the a.m. for possible placement Vitals Vitals Vital Signs Date Time Temp Pulse Resp B/P (MAP) Pulse Ox O2 Delivery O2 Flow Rate FiO2 09/21/18 11:00 97.9 49 18 133/50 (77) 97 Room Air 97.9 09/21/18 07:50 2.0 Physical Exam General: Alert, Oriented X3, Cooperative Heart: Regular rate, Normal S1, Normal S2 Lungs: Clear Abdomen: Normal bowel sounds, Soft Extremities: No clubbing, No cyanosis Skin: No rashes, No breakdown Review of Systems Review of Systems Pertinent as per history of present illness otherwise 14 point review of system is negative Assessment and Plan Assessmemt and Plan Problems Medical Problems: (1) Anemia Status: Acute (2) CHF (congestive heart failure) Status: Acute Comment Review of Relevant I have reviewed the following items vidal (where applicable) has been applied. Labs Laboratory Tests Test 09/19/18 16:00 09/20/18 03:00 White Blood Count 5.9 x10^3/uL (4.0-11.0) Red Blood Count 3.92 x10^6/uL (3.50-5.40) Hemoglobin 11.2 g/dL (12.0-15.5) Hematocrit 34.3 % (36.0-47.0) Mean Corpuscular Volume 87 fL (79-100) Mean Corpuscular Hemoglobin 29 pg (25-35) Mean Corpuscular Hemoglobin Concent 33 g/dL (31-37) Red Cell Distribution Width 14.9 % (11.5-14.5) Platelet Count 269 x10^3/uL (140-400) Neutrophils (%) (Auto) 47 % (31-73) Lymphocytes (%) (Auto) 33 % (24-48) Monocytes (%) (Auto) 11 % (0-9) Eosinophils (%) (Auto) 9 % (0-3) Basophils (%) (Auto) 1 % (0-3) Neutrophils # (Auto) 2.8 x10^3uL (1.8-7.7) Lymphocytes # (Auto) 1.9 x10^3/uL (1.0-4.8) Monocytes # (Auto) 0.6 x10^3/uL (0.0-1.1) Eosinophils # (Auto) 0.5 x10^3/uL (0.0-0.7) Basophils # (Auto) 0.1 x10^3/uL (0.0-0.2) Prothrombin Time 15.0 SEC (11.7-14.0) Prothromb Time International Ratio 1.2 (0.8-1.1) Sodium Level 144 mmol/L (136-145) Potassium Level 3.9 mmol/L (3.5-5.1) Chloride Level 105 mmol/L (98-107) Carbon Dioxide Level 31 mmol/L (21-32) Anion Gap 8 (6-14) Blood Urea Nitrogen 23 mg/dL (7-20) Creatinine 0.9 mg/dL (0.6-1.0) Estimated GFR (Cockcroft-Gault) 61.4 BUN/Creatinine Ratio 26 (6-20) Glucose Level 114 mg/dL (70-99) Lactic Acid Level 1.0 mmol/L (0.4-2.0) Calcium Level 8.6 mg/dL (8.5-10.1) Magnesium Level 1.8 mg/dL (1.8-2.4) Total Bilirubin 0.2 mg/dL (0.2-1.0) Aspartate Amino Transf (AST/SGOT) 22 U/L (15-37) Alanine Aminotransferase (ALT/SGPT) 22 U/L (14-59) Alkaline Phosphatase 83 U/L (46-116) Troponin I Quantitative < 0.017 ng/mL (0.000-0.055) TU-Wzp-X-Type Natriuretic Peptide 903 pg/mL (0-124) Total Protein 6.2 g/dL (6.4-8.2) Albumin 3.5 g/dL (3.4-5.0) Albumin/Globulin Ratio 1.3 (1.0-1.7) Triglycerides Level 78 mg/dL (0-150) Cholesterol Level 137 mg/dL (0-200) LDL Cholesterol, Calculated 48 mg/dL (0-100) VLDL Cholesterol, Calculated 16 mg/dL (0-40) Non-HDL Cholesterol Calculated 64 mg/dL (0-129) HDL Cholesterol 73 mg/dL (40-60) Cholesterol/HDL Ratio 1.9 Urine Collection Type Unknown Urine Color Yellow Urine Clarity Cloudy Urine pH 7.5 Urine Specific [place] 1.015 Urine Protein Negative mg/dL (NEG-TRACE) Urine Glucose (UA) Negative mg/dL (NEG) Urine Ketones (Stick) Negative mg/dL (NEG) Urine Blood Negative (NEG) Urine Nitrite Negative (NEG) Urine Bilirubin Negative (NEG) Urine Urobilinogen Dipstick 0.2 mg/dL (0.2 mg/dL) Urine Leukocyte Esterase Trace (NEG) Urine RBC Occ /HPF (0-2) Urine WBC 1-4 /HPF (0-4) Urine Squamous Epithelial Cells Few /LPF Urine Amorphous Sediment Present /HPF Urine Bacteria Few /HPF (0-FEW) Urine Mucus Slight /LPF Urine Opiates Screen Neg (NEG) Urine Methadone Screen Neg (NEG) Urine Barbiturates Neg (NEG) Urine Phencyclidine Screen Neg (NEG) Urine Amphetamine/Methamphetamine Neg (NEG) Urine Benzodiazepines Screen Neg (NEG) Urine Cocaine Screen Neg (NEG) Urine Cannabinoids Screen Neg (NEG) Urine Ethyl Alcohol Neg (NEG) Microbiology 09/19/18 Blood Culture - Preliminary, Resulted NO GROWTH AFTER 1 DAY Medications Current Medications Ondansetron HCl (Zofran) 4 mg PRN Q4HRS PRN IV NAUSEA/VOMITING; Start 09/19/18 at 17:00 Docusate Sodium (Colace) 100 mg PRN BID PRN PO CONSTIPATION; Start 09/19/18 at 17:00 Albuterol Sulfate (Ventolin Neb Soln) 2.5 mg PRN Q4HRS PRN NEB SHORTNESS OF BREATH Last administered on 09/21/18at 04:00; Start 09/19/18 at 17:00 Guaifenesin (Robitussin) 200 mg PRN Q4HRS PRN PO COUGH; Start 09/19/18 at 17:00 Albuterol Sulfate (Ventolin Neb Soln) 8.5 mg PRN Q6HRS PRN INH SHORTNESS OF BREATH; Start 09/19/18 at 17:00; Status UNV Albuterol Sulfate (Ventolin Neb Soln) 8.5 mg PRN Q6HRS PRN INH SHORTNESS OF BREATH; Start 09/19/18 at 17:00; Status UNV Apixaban (Eliquis) 5 mg BID PO Last administered on 09/21/18at 08:41; Start 09/19/18 at 21:00 Aspirin (Children'S Aspirin) 81 mg DAILY PO Last administered on 09/21/18at 08:41; Start 09/20/18 at 09:00 Atorvastatin Calcium (Lipitor) 40 mg QHS PO Last administered on 09/20/18at 21:47; Start 09/19/18 at 21:00 Furosemide (Lasix) 10 mg DAILY PO Last administered on 09/21/18at 08:39; Start 09/20/18 at 09:00 Isosorbide Mononitrate (Imdur) 30 mg DAILY PO Last administered on 09/21/18at 08:40; Start 09/20/18 at 09:00 Levothyroxine Sodium (Synthroid) 75 mcg DAILY06 PO ; Start 09/20/18 at 06:00; Stop 09/20/18 at 06:00; Status DC Lisinopril (Prinivil) 10 mg DAILY PO Last administered on 09/21/18at 08:40; Start 09/20/18 at 09:00 Magnesium Hydroxide (Milk Of Magnesia) 2,400 mg PRN DAILY PRN PO CONSTIPATION; Start 09/19/18 at 17:00 Metoprolol Succinate (Toprol Xl) 25 mg DAILY PO Last administered on 09/21/18at 08:40; Start 09/20/18 at 09:00 Nitroglycerin (Nitrostat) 0.4 mg PRN Q5MIN PRN SL CHEST PAIN; Start 09/19/18 at 17:00 Triamcinolone Acetonide (Kenalog) 1 mayank PRN BID PRN TP AFFECTED AREA; Start 09/19/18 at 17:00 Non-Formulary Medication (Alendronate Sodium (Fosamax)) 1 tab WEEKLY PO ; Start 09/26/18 at 09:00; Status UNV Calcium Carbonate/ Glycine (Oscal) 1,000 mg TIDAFTMEAL PO Last administered on 09/21/18 08:41; Start 09/19/18 at 18:00 Vitamin D (Vitamin D3) 2,000 unit DAILY PO Last administered on 09/21/18 08:39; Start 09/20/18 at 09:00 Diltiazem HCl (Cardizem 24hr Cd) 120 mg DAILY PO Last administered on 09/21/18 08:40; Start 09/20/18 at 09:00 Guaifenesin (Robitussin) 400 mg PRN BID PRN PO COUGH; Start 09/19/18 at 17:30 Memantine (Namenda) 10 mg DAILY PO ; Start 09/20/18 at 09:00; Stop 09/20/18 at 09:00; Status DC Multivitamins (Thera M Plus) 1 tab DAILY PO Last administered on 09/21/18 08:40; Start 09/20/18 at 09:00 Fish Oil (Fish Oil) 1,000 mg DAILY PO Last administered on 09/21/18 08:40; Start 09/20/18 at 09:00 Pantoprazole Sodium (Protonix) 40 mg DAILYAC PO Last administered on 09/21/18 07:25; Start 09/20/18 at 07:30 Potassium Chloride (Klor-Con) 10 meq DAILYWBKFT PO Last administered on 09/21/18 08:41; Start 09/20/18 at 08:00 Pyridoxine HCl (Vitamin B-6) 200 mg DAILY PO Last administered on 09/21/18at 08:41; Start 09/20/18 at 09:00 Non-Formulary Medication (Ubidecarenone (Coenzyme Q10)) 10 mg DAILY PO ; Start 09/20/18 at 09:00; Status UNV Budesonide (Pulmicort) 0.5 mg RTBID NEB Last administered on 09/20/18at 19:42; Start 09/19/18 at 20:00; Stop 09/20/18 at 21:12; Status DC Albuterol Sulfate (Ventolin Neb Soln) 2.5 mg RTQID NEB Last administered on 09/20/18at 19:42; Start 09/19/18 at 20:00; Stop 09/20/18 at 21:12; Status DC Memantine (Namenda) 10 mg DAILY PO Last administered on 09/19/18at 22:08; Start 09/19/18 at 22:00; Stop 09/19/18 at 22:20; Status DC Non-Formulary Medication 1 ea DAILYWSUP INH ; Start 09/20/18 at 17:00; Stop 09/20/18 at 17:00; Status DC Memantine (Namenda) 10 mg HS PO Last administered on 09/20/18at 21:47; Start 09/20/18 at 21:00 Levothyroxine Sodium (Synthroid) 88 mcg DAILY06 PO Last administered on 09/21/18at 06:00; Start 09/20/18 at 06:00 Non-Formulary Medication 1 ea DAILY@1200 INH Last administered on 09/21/18at 11:47; Start 09/21/18 at 12:00 Magnesium Hydroxide (Milk Of Magnesia) 2,400 mg DAILY PO Last administered on 09/21/18at 08:41; Start 09/21/18 at 09:00 Active Scripts Active Milk Of Magnesia (Magnesium Hydroxide) 400 Mg/5 Ml Oral.susp 2,400 Mg PO PRN DAILY PRN 14 Days Reported Levothyroxine Sodium 88 Mcg Tablet 1 Tab PO DAILY Anoro Ellipta 62.5-25 Mcg Inh (Umeclidinium Brm/Vilanterol Tr) 1 Each Disk.w.dev 1 Each IH DAILY Triamcinolone Acetonide 0.1% Oint (Triamcinolone Acetonide) 15 Gm Oint...g. 1 Mayank TP PRN BID MIX WITH EUCERIN DIRECTED BY PHYSICIAN B-6 (Pyridoxine HCl (Vitamin B6)) 200 Mg Tablet.er 200 Mg PO DAILY Proair Hfa Inhaler (Albuterol Sulfate) 8.5 Gm Hfa.aer.ad 2 Puff INH PRN Q6HRS PRN Potassium Chloride 20 Meq Tablet.er 99 Mg PO DAILY Protonix (Pantoprazole Sodium) 20 Mg Tablet.dr 40 Mg PO DAILY Fish Oil 1,000 mg Softgel ([place]-3/Dha/Epa/Fish Oil) 1,000 Mg Capsule 1,000 Mg PO DAILY NITROGLYCERIN SubLingual (Nitroglycerin) 0.4 Mg Tab.subl 0.4 Mg SL PRN Q5MIN PRN Multivitamins (Multivitamin) 1 Each Tablet 1 Tab PO DAILY Metoprolol Succinate ( Xl ) (Metoprolol Succinate) 25 Mg Tab.er.24h 25 Mg PO DAILY Namenda (Memantine Hcl) 10 Mg Tablet 10 Mg PO DAILY Lisinopril 10 Mg Tablet 10 Mg PO DAILY Isosorbide Mononitrate Er (Isosorbide Mononitrate) 30 Mg Tab.er.24h 30 Mg PO DAILY Guaifenesin 400 Mg Tablet 400 Mg PO PRN BID Lasix (Furosemide) 20 Mg Tablet 10 Mg PO DAILY Eliquis (Apixaban) 5 Mg Tablet 5 Mg PO BID Cardizem Cd (Diltiazem Hcl) 180 Mg Cap.er.24h 120 Mg PO DAILY Coenzyme Q10 (Ubidecarenone) 10 Mg Capsule 10 Mg PO DAILY Vitamin D (Cholecalciferol (Vitamin D3)) 2,000 Unit Capsule 1 Cap PO DAILY Calcium Carbonate 600 Mg Tablet 1,200 Mg PO TID Lipitor (Atorvastatin Calcium) 40 Mg Tablet 1 Tab PO QHS Aspirin 81 Mg Tab.chew 1 Tab PO DAILY Fosamax (Alendronate Sodium) 70 Mg Tablet 1 Tab PO WEEKLY Proair Hfa Inhaler (Albuterol Sulfate) 8.5 Gm Hfa.aer.ad 1 Puff INH PRN Q6HRS PRN Vitals/I & O Vital Sign - Last 24 Hours 09/20/18 09/20/18 09/20/18 09/20/18 15:00 15:21 19:00 20:00 Temp 97.7 98.0 97.7 98.0 Pulse 49 55 Resp 18 B/P (MAP) 130/40 (70) 141/55 (83) Pulse Ox 98 96 99 O2 Delivery Nasal Cannula Room Air Nasal Cannula Nasal Cannula O2 Flow Rate 2.0 2.0 2.0 09/20/18 09/21/18 09/21/18 09/21/18 23:00 03:00 04:01 07:00 Temp 97.9 98.1 98.0 97.9 98.1 98.0 Pulse 53 62 53 Resp 18 18 18 B/P (MAP) 125/57 (79) 141/69 (93) 174/59 (97) Pulse Ox 100 99 93 95 O2 Delivery Nasal Cannula Room Air Room Air Room Air O2 Flow Rate 2.0 09/21/18 09/21/18 09/21/18 09/21/18 07:50 08:40 08:40 08:40 Pulse 53 53 53 B/P (MAP) 174/59 174/59 174/59 O2 Delivery Nasal Cannula O2 Flow Rate 2.0 09/21/18 09/21/18 08:40 11:00 Temp 97.9 97.9 Pulse 53 49 Resp 18 B/P (MAP) 174/59 133/50 (77) Pulse Ox 97 O2 Delivery Room Air Intake and Output 09/20/18 09/20/18 09/21/18 14:59 22:59 06:59 Intake Total 380 ml 210 ml Output Total 1100 ml Balance -1100 ml 380 ml 210 ml YELITZA EDDY MD September 21, 2018 12:03
[2018-09-21 15:00] VITALS: BP 165/55
[2018-09-21 19:00] VITALS: BP 147/39
[2018-09-21] MEDS: MEMANTINE 10 MG TABLET. PO SCH (20:48)
[2018-09-21] MEDS: ATORVASTATIN CALCIUM 40 MG TABLET. PO SCH (20:48)
[2018-09-21 23:00] VITALS: BP 126/45
[2018-09-22] MEDS: ALBUTEROL SULFATE 2.5 MG/3 ML NEBU. NEB PRN (01:19)
[2018-09-22 03:00] VITALS: BP 142/43
[2018-09-22] MEDS: LEVOTHYROXINE 88 MCG TABLET PO SCH (05:27)
[2018-09-22 07:00] VITALS: BP 113/37
[2018-09-22] MEDS: PANTOPRAZOLE 40 MG TABLET.DR. PO SCH (07:28)
--- NOTE | 2018-09-22 07:43 | SNU/HH DC ---
DISCHARGE ORDERS DISCHARGE INFORMATION: DISCHARGE DATE: September 22, 2018 FINAL DIAGNOSIS Problems Medical Problems: (1) Anemia Status: Acute (2) CHF (congestive heart failure) Status: Acute CONDITION ON DISCHARGE: Stable CODE STATUS: Code Status: Full CUSTODIAL: SNF STAY <30 DAYS: Yes HOSPICE: HOSPICE: No HOSPICE EVAL & TREAT: No LTAC: ADMIT TO LTAC: No POST DISCHARGE ORDERS: ACTIVITY ORDERS: Activity as tolerated WEIGHT BEARING STATUS: As tolerated DIET AFTER DISCHARGE: Cardiac WOUND/INCISION CARE: No wound care needed CHECKS AFTER DISCHARGE: CHECKS AFTER DISCHARGE: Check blood press - daily FOLLOW-UP: PHYSICIAN FOLLOW-UP: pcp upn snu dc TREATMENT/EQUIPMENT ORDERS: ADAPTIVE EQUIPMENT NEEDED: None RESPIRATORY EQUIPMENT NEEDED: Oxygen Physical Therapy For: Evalulation/Treatment Occupational Therapy For: Evaluation/Treatment Speech Language Pathology For: Evaluation/Treatment DISCHARGE MEDICATIONS: Home Meds Active Scripts Magnesium Hydroxide (MILK OF MAGNESIA) 400 Mg/5 Ml Oral.susp, 2400 MG PO PRN DAILY PRN for CONSTIPATION for 14 Days, #120 MISC Prov:RUBEN GARCIA MD 07/20/18 Reported Medications Levothyroxine Sodium (LEVOTHYROXINE SODIUM) 88 Mcg Tablet, 1 TAB PO DAILY for thyroid, #30 TAB 5 Refills 09/20/18 Umeclidinium Brm/Vilanterol Tr (ANORO ELLIPTA 62.5-25 MCG INH) 1 Each Disk.w.dev, 1 EACH IH DAILY for copd, INH 07/10/18 Triamcinolone Acetonide (TRIAMCINOLONE ACETONIDE 0.1% OINT) 15 Gm Oint...g., 1 ARCELIA TP PRN BID for rash, #1 TUBE MIX WITH EUCERIN DIRECTED BY PHYSICIAN 07/10/18 Pyridoxine HCl (Vitamin B6) (B-6) 200 Mg Tablet.er, 200 MG PO DAILY for supplement, TAB.SR 07/10/18 Albuterol Sulfate (PROAIR HFA INHALER) 8.5 Gm Hfa.aer.ad, 2 PUFF INH PRN Q6HRS PRN for SHORTNESS OF BREATH, INHALER 0 Refills 07/10/18 Potassium Chloride (POTASSIUM CHLORIDE) 20 Meq Tablet.er, 99 MG PO DAILY for supplement, TAB.SR 07/10/18 Pantoprazole Sodium (PROTONIX) 20 Mg Tablet.dr, 40 MG PO DAILY for gerd, TAB 07/10/18 [place]-3/Dha/Epa/Fish Oil (Fish Oil 1,000 mg Softgel) 1,000 Mg Capsule, 1000 MG PO DAILY for supplement, CAP 07/10/18 Nitroglycerin (NITROGLYCERIN SubLingual) 0.4 Mg Tab.subl, 0.4 MG SL PRN Q5MIN PRN for CHEST PAIN, BOTTLE 07/10/18 Multivitamin (MULTIVITAMINS) 1 Each Tablet, 1 TAB PO DAILY for supplement, #90 TAB 3 Refills 07/10/18 Metoprolol Succinate (METOPROLOL SUCCINATE ( XL )) 25 Mg Tab.er.24h, 25 MG PO DAILY for FOR HYPERTENSION, #30 TAB 0 Refills 07/10/18 Memantine Hcl (NAMENDA) 10 Mg Tablet, 10 MG PO DAILY for dementia, TAB 07/10/18 Lisinopril (LISINOPRIL) 10 Mg Tablet, 10 MG PO DAILY for FOR HYPERTENSION, #30 TAB 0 Refills 07/10/18 Isosorbide Mononitrate (ISOSORBIDE MONONITRATE ER) 30 Mg Tab.er.24h, 30 MG PO DAILY for htn, TAB.SR 07/10/18 Guaifenesin (GUAIFENESIN) 400 Mg Tablet, 400 MG PO PRN BID for congestion, TAB 07/10/18 Furosemide (LASIX) 20 Mg Tablet, 10 MG PO DAILY for dfiuretic, TAB 07/10/18 Apixaban (ELIQUIS) 5 Mg Tablet, 5 MG PO BID for blood thinner, TAB 07/10/18 Diltiazem Hcl (CARDIZEM CD) 180 Mg Cap.er.24h, 120 MG PO DAILY for FOR HYPERTENSION, #30 CAP 0 Refills 07/10/18 Ubidecarenone (COENZYME Q10) 10 Mg Capsule, 10 MG PO DAILY for supplement, CAP 07/10/18 Cholecalciferol (Vitamin D3) (VITAMIN D) 2,000 Unit Capsule, 1 CAP PO DAILY for supplement, #30 CAP 3 Refills 07/10/18 Calcium Carbonate (CALCIUM CARBONATE) 600 Mg Tablet, 1200 MG PO TID for gerd, TAB 07/10/18 Atorvastatin Calcium (LIPITOR) 40 Mg Tablet, 1 TAB PO QHS for high cholesterol, #90 TAB 1 Refill 07/10/18 Aspirin (ASPIRIN) 81 Mg Tab.chew, 1 TAB PO DAILY for heart health, #30 TAB 3 Refills 07/10/18 Alendronate Sodium (FOSAMAX) 70 Mg Tablet, 1 TAB PO WEEKLY for osteoporosis, #4 TAB 11 Refills 07/10/18 Albuterol Sulfate (PROAIR HFA INHALER) 8.5 Gm Hfa.aer.ad, 1 PUFF INH PRN Q6HRS PRN for SHORTNESS OF BREATH, INHALER 0 Refills 07/10/18 Discontinued Reported Medications Levothyroxine Sodium (SYNTHROID) 75 Mcg Tablet, 1 TAB PO DAILY for thyroid, #30 TAB 5 Refills 07/10/18 MAULIK CATES MD September 22, 2018 07:43
[2018-09-22] MEDS: POTASSIUM CHLORIDE 10 MEQ TABLET.ER. PO SCH (08:35)
[2018-09-22] MEDS: ISOSORBIDE MONONITRATE ER 30 MG TAB.ER.24H PO SCH (08:35)
[2018-09-22] MEDS: PYRIDOXINE 50 MG TABLET. PO SCH (08:35)
[2018-09-22] MEDS: METOPROLOL SUCC 24HR ER 25 MG TAB.ER.24H. PO SCH (08:36)
[2018-09-22] MEDS: FUROSEMIDE 20 MG TABLET PO SCH (08:37)
[2018-09-22] MEDS: ASPIRIN CHEWABLE 81 MG TABLET. PO SCH (08:37)
[2018-09-22] MEDS: CHOLECALCIFEROL (VITAMIN D3) 1,000 UNIT TABLET PO SCH (08:37)
[2018-09-22] MEDS: LISINOPRIL 10 MG TABLET PO SCH (08:37)
[2018-09-22] MEDS: APIXABAN 5 MG TABLET. PO SCH (08:37)
[2018-09-22] MEDS: MULTIVITAMIN with MINERAL TABLET. PO SCH (08:38)
[2018-09-22] MEDS: OMEGA-3 FATTY ACIDS/FISH OIL 1,000 MG CAPSULE. PO SCH (08:38)
[2018-09-22] MEDS: CALCIUM CARBONATE 500 MG TABLET PO SCH ×2 (08:38→12:10)
[2018-09-22] MEDS: MAGNESIUM HYDROXIDE 2,400 MG/30 ML ORAL.SUSP. PO SCH (08:41)
[2018-09-22 08:42] VITALS: BP 140/61
--- NOTE | 2018-09-22 09:21 | PDOC3 ---
Discharge Summary Visit Information Date of Admission: September 19, 2018 Date of Discharge: September 22, 2018 Admitting Diagnosis Comment: Severe carotid disease with near occlusion status post right carotid endarterectomy in July 2018 History of mild cognitive impairment Center of dyslipidemia Chronic anticoagulation with a pixie upon History of essential hypertension History of hypothyroidism on replacement therapy Normocytic anemia of chronic disease most likely Depression? Ventral hernia currently asymptomatic, patient quite concerned. I have discussed at length that unless this becomes a strangulate it hernia patient currently is on a anticoagulant that would make her a very high risk cardiac and surgical candidate Final Diagnosis Problems Medical Problems: (1) Anemia Status: Acute (2) CHF (congestive heart failure) Status: Acute Brief Hospital Course Allergies Allergies Coded Allergies Type Severity Reaction Last Updated Verified morphine Allergy Severe facial swelling 07/18/18 Yes NSAIDS (Non-Steroidal Anti-Inflamma Allergy Intermediate 07/17/18 Yes atropine Allergy Intermediate 07/17/18 Yes bacitracin Allergy Intermediate 07/17/18 Yes belladonna alkaloids Allergy Intermediate 07/17/18 Yes diphenhydramine Allergy Intermediate 07/17/18 Yes gramicidin D Allergy Intermediate 07/17/18 Yes hyoscyamine Allergy Intermediate 07/17/18 Yes ketorolac Allergy Intermediate 07/17/18 Yes neomycin Allergy Intermediate 07/17/18 Yes penicillin G Allergy Intermediate 07/17/18 Yes penicillin V Allergy Intermediate 07/17/18 Yes phenobarbital Allergy Intermediate 07/17/18 Yes polymyxin B Allergy Intermediate 07/17/18 Yes scopolamine Allergy Intermediate 07/17/18 Yes nickel Allergy Mild severe itching 07/17/18 Yes silver Allergy Mild severe itching 07/17/18 Yes Vital Signs Vital Signs Date Time Temp Pulse Resp B/P (MAP) Pulse Ox O2 Delivery O2 Flow Rate FiO2 09/22/18 08:42 50 140/61 (87) 09/22/18 07:00 98.2 18 98 Nasal Cannula 2.0 98.2 Brief Hospital Course Ms. Jimenez is a 73 old white female who came in because of multiple complaints.BUt most Notably she has history of severe right carotid stenosis underwent endarterectomy by vascular surgery service July 2018. [facility] surgery has said that it is okay to follow-up as outpatient. She is neurologically intact. PT OT recommended SNU. She did not want her previous experience with home health. I tried to reach the son-in-law show [phone] but to no avail with no voicemail set up. No new meds, to continue all home meds. She claims she was not confused when she came in. A friend will pick her up. I am just concerned making sure that she will follow-up with Dr. vivas and her safety being home alone. Pt known to SW and always would refuse SNU She claims she does not drive anymore, maybe the friend brings her to doctor's visits - she could not answer me straight very long time in the room, as I was trying to assess safety for discharge alone per her request Will reattempt Alejandra's number again Consults performed vascular surgery-not seen-advised outpatient follow-up dc 42 Discharge Information Condition at Discharge: Improved, Stable Follow Up: Weeks (sangeetha *(vasc sx 2- 4 weeks)) Disposition/Orders: D/C to Home Scheduled Alendronate Sodium (Fosamax) 70 Mg Tablet, 1 TAB PO WEEKLY for osteoporosis, #4 Ref 11 (Reported) Entered as Reported by: ANA PUTNAM on 07/10/181757 Last Action: Converted on 09/19/181657 by YELITZA EDDY MD Apixaban (Eliquis) 5 Mg Tablet, 5 MG PO BID for blood thinner, (Reported) Entered as Reported by: ANA PUTNAM on 07/10/181758 Last Action: Continued on 09/19/181656 by YELITZA EDDY MD Aspirin (Aspirin) 81 Mg Tab.chew, 1 TAB PO DAILY for heart health, #30 Ref 3 (Reported) Entered as Reported by: ANA PUTNAM on 07/10/181757 Last Action: Continued on 09/19/181657 by YELITZA EDDY MD Atorvastatin Calcium (Lipitor) 40 Mg Tablet, 1 TAB PO QHS for high cholesterol, #90 Ref 1 (Reported) Entered as Reported by: ANA PUTNAM on 07/10/181757 Last Action: Continued on 09/19/181657 by YELITZA EDDY MD Calcium Carbonate (Calcium Carbonate) 600 Mg Tablet, 1,200 MG PO TID for gerd, (Reported) Entered as Reported by: ANA PUTNAM on 07/10/181757 Last Action: Converted on 09/19/181657 by YELITZA EDDY MD Cholecalciferol (Vitamin D3) (Vitamin D) 2,000 Unit Capsule, 1 CAP PO DAILY for supplement, #30 Ref 3 (Reported) Entered as Reported by: ANA PUTNAM on 07/10/181758 Last Action: Converted on 09/19/181657 by YELITZA EDDY MD Diltiazem Hcl (Cardizem Cd) 180 Mg Cap.er.24h, 120 MG PO DAILY for FOR HYPERTENSION, #30 Ref 0 (Reported) Entered as Reported by: ANA PUTNAM on 07/10/181758 Last Action: Converted on 09/19/181657 by YELITZA EDDY MD Furosemide (Lasix) 20 Mg Tablet, 10 MG PO DAILY for dfiuretic, (Reported) Entered as Reported by: ANA PUTNAM on 07/10/181758 Last Action: Continued on 09/19/181657 by YELITZA EDDY MD Guaifenesin (Guaifenesin) 400 Mg Tablet, 400 MG PO PRN BID for congestion, (Reported) Entered as Reported by: ANA PUTNAM on 07/10/181758 Last Action: Converted on 09/19/181657 by YELITZA EDDY MD Isosorbide Mononitrate (Isosorbide Mononitrate Er) 30 Mg Tab.er.24h, 30 MG PO DAILY for htn, (Reported) Entered as Reported by: ANA PUTNAM on 07/10/181758 Last Action: Continued on 09/19/181657 by YELITZA EDDY MD Levothyroxine Sodium (Levothyroxine Sodium) 88 Mcg Tablet, 1 TAB PO DAILY for thyroid, #30 Ref 5 (Reported) Entered as Reported by: SEN SILVERMAN on 09/20/18536 Last Action: Continued on 09/20/18537 by SEN SILVERMAN Lisinopril (Lisinopril) 10 Mg Tablet, 10 MG PO DAILY for FOR HYPERTENSION, #30 Ref 0 (Reported) Entered as Reported by: ANA PUTNAM on 07/10/181758 Last Action: Continued on 09/19/181657 by YELITZA EDDY MD Memantine Hcl (Namenda) 10 Mg Tablet, 10 MG PO DAILY for dementia, (Reported) Entered as Reported by: ANA PUTNAM on 07/10/181758 Last Action: Converted on 09/19/181657 by YELITZA EDDY MD Metoprolol Succinate (Metoprolol Succinate ( Xl )) 25 Mg Tab.er.24h, 25 MG PO DAILY for FOR HYPERTENSION, #30 Ref 0 (Reported) Entered as Reported by: ANA PUTNAM on 07/10/181758 Last Action: Continued on 09/19/181657 by YELITZA EDDY MD Multivitamin (Multivitamins) 1 Each Tablet, 1 TAB PO DAILY for supplement, #90 Ref 3 (Reported) Entered as Reported by: ANA PUTNAM on 07/10/181758 Last Action: Converted on 09/19/181657 by YELITZA EDDY MD Jermyn-3/Dha/Epa/Fish Oil (Fish Oil 1,000 mg Softgel) 1,000 Mg Capsule, 1,000 MG PO DAILY for supplement, (Reported) Entered as Reported by: ANA PUTNAM on 07/10/181758 Last Action: Converted on 09/19/181657 by YELITZA EDDY MD Pantoprazole Sodium (Protonix) 20 Mg Tablet.dr, 40 MG PO DAILY for gerd, (Reported) Entered as Reported by: ANA PUTNAM on 07/10/181802 Last Action: Converted on 09/19/181657 by YELITZA EDDY MD Potassium Chloride (Potassium Chloride) 20 Meq Tablet.er, 99 MG PO DAILY for supplement, (Reported) Entered as Reported by: ANA PUTNAM on 07/10/181802 Last Action: Converted on 09/19/181657 by YELITZA EDDY MD Pyridoxine HCl (Vitamin B6) (B-6) 200 Mg Tablet.er, 200 MG PO DAILY for supplement, (Reported) Entered as Reported by: ANA PUTNAM on 07/10/181802 Last Action: Converted on 09/19/181657 by YELITZA EDDY MD Triamcinolone Acetonide (Triamcinolone Acetonide 0.1% Oint) 15 Gm Oint...g., 1 ARCELIA TP PRN BID for rash, #1 (Reported) MIX WITH EUCERIN DIRECTED BY PHYSICIAN Entered as Reported by: ANA PUTNAM on 07/10/181802 Last Action: Continued on 09/19/181657 by YELITZA EDDY MD Ubidecarenone (Coenzyme Q10) 10 Mg Capsule, 10 MG PO DAILY for supplement, (Reported) Entered as Reported by: ANA PUTNAM on 07/10/181758 Last Action: Converted on 09/19/181657 by YELITZA EDDY MD Umeclidinium Brm/Vilanterol Tr (Anoro Ellipta 62.5-25 Mcg Inh) 1 Each Disk.w.dev, 1 EACH IH DAILY for copd, (Reported) Entered as Reported by: ANA PUTNAM on 07/10/181802 Last Action: Converted on 09/19/181657 by YELITZA EDDY MD Scheduled PRN Albuterol Sulfate (Proair Hfa Inhaler) 8.5 Gm Hfa.aer.ad, 1 PUFF INH PRN Q6HRS PRN for SHORTNESS OF BREATH, Ref 0 (Reported) Entered as Reported by: ANA PUTNAM on 07/10/181757 Last Action: Continued on 09/19/181656 by YELITZA EDDY MD Albuterol Sulfate (Proair Hfa Inhaler) 8.5 Gm Hfa.aer.ad, 2 PUFF INH PRN Q6HRS PRN for SHORTNESS OF BREATH, Ref 0 (Reported) Entered as Reported by: ANA PUTNAM on 07/10/181802 Last Action: Continued on 09/19/181656 by YELITZA EDDY MD Magnesium Hydroxide (Milk Of Magnesia) 400 Mg/5 Ml Oral.susp, 2,400 MG PO PRN DAILY PRN for CONSTIPATION for 14 Days, #120 Prescribed by: RUBEN GARCIA MD on 07/20/18 1212 Last Action: Continued on 09/19/181657 by YELITZA EDDY MD Nitroglycerin (NITROGLYCERIN SubLingual) 0.4 Mg Tab.subl, 0.4 MG SL PRN Q5MIN PRN for CHEST PAIN, (Reported) Entered as Reported by: ANA PUTNAM on 07/10/181758 Last Action: Continued on 09/19/181657 by YELITZA EDDY MD Discontinued Medications Levothyroxine Sodium (Synthroid) 75 Mcg Tablet, 1 TAB PO DAILY for thyroid, #30 Ref 5 (Reported) Entered as Reported by: ANA PUTNAM on 07/10/181802 Last Action: Discontinued on 09/20/18537 by MAULIK SULTANA MD September 22, 2018 09:21
--- NOTE | 2018-09-22 09:23 | NUR ---
SW consulted for dc needs. Chart reviewed and IRAIDA RN. PT recommends SNU or HH but Pt is declining all services at this time. Physician aware.
--- NOTE | 2018-09-22 10:35 | NUR ---
Wound care: Patient seen per wound care consult. See wound assessment. Dressing removed and wound cleansed, assessed, measured, and pictured. Patient to discharge today. Patient has stage II pressure ulcer to coccyx. Recommendations for calazime cream to be applied BID and wheelchair cushion. Calazime cream applied. Wheelchair cushion ordered for patient. Dressing change instructions left in room. Spoke with RN regarding POC. Patient back in chair at this time. Call light in reach.
[2018-09-22 10:53] VITALS: BP 160/55
--- NOTE | 2018-09-22 11:30 | NUR ---
Patient home medications that were sent to pharmacy returned to her in anticipation of discharge. Patient has friend coming to take her home, to bring her home oxygen. Dr. Carrillo aware patient has refused HH or SNC.
[2018-09-22] MEDS: ANORO ELLIPTA INH SCH (12:00)
--- NOTE | 2018-09-22 12:01 | NUR ---
Discharge instructions reviewed with patient, patient received calazime ointment and Albert SofCushion, patient took own breathing medication as had been returned to her with home medications. Patient verb. understanding all instructions and denies questions. Patient has requested to talk to Dr. Carrillo, Dr. Carrillo notified and to page her when her friend arrives as she also would like to talk to her friend. Patient verb. understanding POC. Patient has received all instructions and has all belongings.
[2018-09-22] MEDS ORDERED: ANTI-COAG MONITOR BY PHARMACY. MC PRN (12:15)
--- NOTE | 2018-09-22 12:52 | NUR ---
Dr. Carrillo talked with patient's friend Blanca on phone, OK for patient discharge. Patient discharge with all belongings, supplies, her home medications and discharge instructions to home with friend. See previous notes, nursing communication and orders.
[2018-09-26] MEDS ORDERED: NON FORMULARY ITEM (Alendronate Sodium (Fosamax) 1 TAB) PO SCH (09:00)
== END 2018-09-22 12:54 | DRG 71 ==
LOC: ER 15:23 → 5 NORTH 16:40
PROVIDERS: ADMIT Internal Medicine; ATTEND Internal Medicine
DX: G93.41 Metabolic encephalopathy (principal); I50.42 Chronic combined systolic (congestive) and diastolic (congestive) heart failure; I11.0 Hypertensive heart disease with heart failure; F03.90 Unspecified dementia, unspecified severity, without behavioral disturbance, psychotic disturbance, mood disturbance, and anxiety; D63.8 Anemia in other chronic diseases classified elsewhere; J44.9 Chronic obstructive pulmonary disease, unspecified; F32.9 Major depressive disorder, single episode, unspecified; K21.9 Gastro-esophageal reflux disease without esophagitis; F41.9 Anxiety disorder, unspecified; M81.0 Age-related osteoporosis without current pathological fracture; E78.5 Hyperlipidemia, unspecified; E03.9 Hypothyroidism, unspecified; K43.9 Ventral hernia without obstruction or gangrene; Z88.6 Allergy status to analgesic agent; Z88.3 Allergy status to other anti-infective agents; Z88.5 Allergy status to narcotic agent; Z88.0 Allergy status to penicillin; Z88.8 Allergy status to other drugs, medicaments and biological substances; Z87.891 Personal history of nicotine dependence; Z79.01 Long term (current) use of anticoagulants
CPT/HCPCS: 36415; 70450; 71045; 80053; 80061; 80307; 81001; 83605; 83735; 83880; 84484; 85025; 85610; 87040; 87086; 93005; 94640; J7613; J7626; 97535; 99285-25

== ENCOUNTER 2018-10-28 09:09 | Emergency (ER) | payer MEDICARE ==
[~2018-10-28] VITALS: Ht 157.5 cm; Wt 54.9 kg
[~2018-10-28 09:09] MED LIST changes: +LEVO88TA4 PO; +TRAM50TA PO
--- NOTE | 2018-10-28 09:42 | PHYS DOC ---
Past Medical History Past Medical History: COPD Additional Past Medical Histor: Hernia Alcohol Use: None Drug Use: None Adult General Chief Complaint Chief Complaint: SHORTNESS OF BREATH [facility] HPI Patient is a 73 year old female with a history of stroke, [place], COPD on 2 L of oxygen at home presents to ED complaining of shortness of breath x 3 days. On October 22, patient had an endarterectomy for carotid stenosis to her left side. Patient states she improved since the procedure but developed a cough that started out clear but since then she has been coughing up yellow stuff. States she feels worsening shortness of breath this morning. She was using her oxygen as she normally does. Associated symptoms include congestion. Denies fever, chest pain, nausea/vomiting, lower leg swelling, recent travel, weakness, dizziness, vision changes or headache. Review of Systems Review of Systems Constitutional: Denies fever or chills [] Eyes: Denies change in visual acuity, redness, or eye pain [] HENT: Complains of congestion. Denies sore throat [] Respiratory: Complains of cough and shortness of breath [] Cardiovascular: No additional information not addressed in HPI [] GI: Denies abdominal pain, nausea, vomiting, bloody stools or diarrhea [] : Denies dysuria or hematuria [] Musculoskeletal: Denies back pain or joint pain [] Integument: Denies rash or skin lesions [] Neurologic: Denies headache, focal weakness or sensory changes [] All other systems were reviewed and found to be within normal limits, except as documented in this note. Current Medications Current Medications Current Medications Medications (Trade) Dose Ordered Sig/Denise Start Time Stop Time Status Last Admin Dose Admin Info (CONTRAST GIVEN -- Rx MONITORING) 1 each PRN DAILY PRN 10/28/18 10:45 10/28/18 12:08 DC Iohexol (Omnipaque 350 Mg/ml) 100 ml 1X ONCE 10/28/18 10:30 10/28/18 10:32 DC 10/28/18 10:30 100 ML Allergies Allergies Allergies Coded Allergies Type Severity Reaction Last Updated Verified morphine Allergy Severe facial swelling 10/22/18 Yes NSAIDS (Non-Steroidal Anti-Inflamma Allergy Intermediate 10/22/18 Yes atropine Allergy Intermediate 10/22/18 Yes bacitracin Allergy Intermediate 10/22/18 Yes belladonna alkaloids Allergy Intermediate 10/22/18 Yes diphenhydramine Allergy Intermediate 10/22/18 Yes gramicidin D Allergy Intermediate 10/22/18 Yes hyoscyamine Allergy Intermediate 10/22/18 Yes ketorolac Allergy Intermediate 10/22/18 Yes neomycin Allergy Intermediate 10/22/18 Yes penicillin G Allergy Intermediate 10/22/18 Yes penicillin V Allergy Intermediate 10/22/18 Yes phenobarbital Allergy Intermediate 10/22/18 Yes polymyxin B Allergy Intermediate 10/22/18 Yes scopolamine Allergy Intermediate 10/22/18 Yes nickel Allergy Mild severe itching 10/22/18 Yes silver Allergy Mild severe itching 10/22/18 Yes Physical Exam Physical Exam Constitutional: Well developed, well nourished, no acute distress, non-toxic appearance. [] HENT: Normocephalic, atraumatic, bilateral external ears normal, oropharynx moist, no oral exudates, nose normal. [] Eyes: PERRLA, EOMI, conjunctiva normal, no discharge. [] Neck: Normal range of motion, no tenderness, supple, no stridor. [] Cardiovascular:Heart rate regular rhythm, no murmur [] Lungs & Thorax: Bilateral breath sounds clear to auscultation. Productive c ough. [] Abdomen: Bowel sounds normal, soft, no tenderness, no masses, no pulsatile masses. [] Skin: Warm, dry, no erythema, no rash. [] Back: No tenderness, no CVA tenderness. [] Extremities: No tenderness, no cyanosis, no clubbing, ROM intact, no edema. [] Neurologic: Alert and oriented X 3, normal motor function, normal sensory function, no focal deficits noted. [] Psychologic: Affect normal, judgement normal, mood normal. [] Current Patient Data Vital Signs Vital Signs Date Time Temp Pulse Resp B/P (MAP) Pulse Ox O2 Delivery O2 Flow Rate FiO2 10/28/18 11:25 70 18 153/106 (122) 92 Nasal Cannula 2.0 10/28/18 09:13 98.1 98.1 Lab Values Laboratory Tests Test 10/28/18 09:40 10/28/18 10:00 White Blood Count 7.5 x10^3/uL (4.0-11.0) Red Blood Count 4.16 x10^6/uL (3.50-5.40) Hemoglobin 12.1 g/dL (12.0-15.5) Hematocrit 36.3 % (36.0-47.0) Mean Corpuscular Volume 87 fL (79-100) Mean Corpuscular Hemoglobin 29 pg (25-35) Mean Corpuscular Hemoglobin Concent 33 g/dL (31-37) Red Cell Distribution Width 17.0 % (11.5-14.5) H Platelet Count 292 x10^3/uL (140-400) Neutrophils (%) (Auto) 61 % (31-73) Lymphocytes (%) (Auto) 21 % (24-48) L Monocytes (%) (Auto) 9 % (0-9) Eosinophils (%) (Auto) 10 % (0-3) H Basophils (%) (Auto) 1 % (0-3) Neutrophils # (Auto) 4.5 x10^3uL (1.8-7.7) Lymphocytes # (Auto) 1.5 x10^3/uL (1.0-4.8) Monocytes # (Auto) 0.6 x10^3/uL (0.0-1.1) Eosinophils # (Auto) 0.7 x10^3/uL (0.0-0.7) Basophils # (Auto) 0.1 x10^3/uL (0.0-0.2) Sodium Level 142 mmol/L (136-145) Potassium Level 4.0 mmol/L (3.5-5.1) Chloride Level 103 mmol/L (98-107) Carbon Dioxide Level 30 mmol/L (21-32) Anion Gap 9 (6-14) Blood Urea Nitrogen 18 mg/dL (7-20) Creatinine 0.8 mg/dL (0.6-1.0) Estimated GFR (Cockcroft-Gault) 70.3 BUN/Creatinine Ratio 23 (6-20) H Glucose Level 90 mg/dL (70-99) Calcium Level 8.8 mg/dL (8.5-10.1) Total Bilirubin 0.4 mg/dL (0.2-1.0) Aspartate Amino Transferase (AST) 23 U/L (15-37) Alanine Aminotransferase (ALT) 23 U/L (14-59) Alkaline Phosphatase 89 U/L (46-116) Troponin I Quantitative < 0.017 ng/mL (0.000-0.055) FH-Rxf-K-Type Natriuretic Peptide 340 pg/mL (0-124) H Total Protein 6.6 g/dL (6.4-8.2) Albumin 3.6 g/dL (3.4-5.0) Albumin/Globulin Ratio 1.2 (1.0-1.7) Urine Collection Type Unknown Urine Color Yellow Urine Clarity Clear Urine pH 7.5 Urine Specific [place] 1.010 Urine Protein Negative mg/dL (NEG-TRACE) Urine Glucose (UA) Negative mg/dL (NEG) Urine Ketones (Stick) Negative mg/dL (NEG) Urine Blood Negative (NEG) Urine Nitrite Negative (NEG) Urine Bilirubin Negative (NEG) Urine Urobilinogen Dipstick 0.2 mg/dL (0.2 mg/dL) Urine Leukocyte Esterase Negative (NEG) Urine RBC Occ /HPF (0-2) Urine WBC Occ /HPF (0-4) Urine Squamous Epithelial Cells Occ /LPF Urine Amorphous Sediment Present /HPF Urine Bacteria Few /HPF (0-FEW) Laboratory Tests 10/28/18 09:40 Laboratory Tests 10/28/18 09:40 EKG EKG [] Radiology/Procedures Radiology/Procedures []PROCEDURE: CT ANGIOGRAPHY CHEST Examination: CT ANGIOGRAPHY CHEST History: Shortness of breath Comparison/Correlation: 07/14/2018 CT chest without contrast, 10/28/2018 portable chest x-ray exam Findings: Axial images of chest were obtained following IV contrast according to pulmonary arteriography protocol. Pulmonary arterial vasculature is normal with no thromboembolic disease identified but evaluation may be limited in regions of bibasilar linear atelectasis. Diffuse emphysematous involvement of the lung wright noted. Left lateral perihilar lobulated 0.8 cm diameter nodule on axial image 73 is stable compared to the prior exam. Nodule involving the left anterior lung at the midline on axial image 72 measuring up to 0.5 cm is stable. At the left lung base, there is a 0.5 cm diameter low-attenuation nodule on axial image 107 which is well-circumscribed. This appears be new compared to the prior exam. Cholecystectomy. Significant calcific involvement of the thoracic aorta and especially upper abdominal aorta. Impression: No pulmonary arterial thromboembolic disease. Evaluation may be limited in regions of linear bibasilar lower lobe atelectasis. Pulmonary nodules previously seen have remained stable. There is a new left basilar 0.5 cm diameter pulmonary nodule. It is low attenuation. Correlate clinically in determining interval follow-up to assess stability. Circumferential thickening of the distal esophagus. Correlate for underlying reflux. Course & Med Decision Making Course & Med Decision Making Pertinent Labs and Imaging studies reviewed. (See chart for details) []Discussed lab and imaging findings with patient at bedside. Patient well- appearing in the ED. Patient is on 2 liters that she uses at home and is saturating at 99%. Patient states she's been sick like this in the past and u sually it turns into bronchitis. Patient is requesting antibiotics. Patient states she does not want to be admitted (refuses). Family at bedside. We'll treat with Levaquin outpatient. Discussed symptomatic treatment and follow-up with PCP in one to 2 days. Provided contact information/education. Discussed reasons to return to the ED. Patient understands and agrees with plan. Family states they will bring her back if she gets worse. Discussed case with attending physician whom agrees with evaluation and plan. Dragon Disclaimer Dragon Disclaimer This electronic medical record was generated, in whole or in part, using a voice recognition dictation system. Departure Departure Impression: Primary Impression: Bronchitis Disposition: HOME, SELF-CARE Condition: IMPROVED Referrals: UNKNOWN PCP NAME (PCP) JANA MARTE MD Patient Instructions: Bronchitis Scripts Levofloxacin (LEVAQUIN) 500 Mg Tablet 1 TAB PO DAILY, #7 TAB Prov: ED NORRIS 10/28/18 ED NORRIS Oct 28, 2018 09:42
[2018-10-28 09:53] LABS: BASO # 0.1 x10^3/uL (0.0-0.2); BASO % 1 % (0-3); EOS # 0.7 x10^3/uL (0.0-0.7); EOS % 10 % (0-3); HEMATOCRIT 36.3 % (36.0-47.0); HEMOGLOBIN 12.1 g/dL (12.0-15.5); LYMPH # 1.5 x10^3/uL (1.0-4.8); LYMPH % 21 % (24-48); MEAN CORPUSCULAR HEMOGLOBIN 29 pg (25-35); MEAN CORPUSCULAR HGB CONC 33 g/dL (31-37); MEAN CORPUSCULAR VOLUME 87 fL (79-100); MONO # 0.6 x10^3/uL (0.0-1.1); MONO % 9 % (0-9); NEUT # 4.5 x10^3uL (1.8-7.7); NEUT % 61 % (31-73); PLATELET COUNT 292 x10^3/uL (140-400); RED BLOOD COUNT 4.16 x10^6/uL (3.50-5.40); WHITE BLOOD COUNT 7.5 x10^3/uL (4.0-11.0)
--- NOTE | 2018-10-28 09:53 | RAD ---
EXAM: CHEST 1 VIEW History: Shortness of breath COMPARISON: 09/19/2018 TECHNIQUE: Single portable radiograph of the chest FINDINGS: Mild cardiomegaly. There is mild prominent appearing bilateral interstitial lung markings. The costophrenic sulci are clear and well demarcated. Minimal linear bibasilar lung atelectasis. IMPRESSION: 1. Mild diffuse prominent appearing bilateral interstitial lung markings likely mild congestive changes. 2. Minimal bibasilar lung atelectasis. Electronically signed by: Salvador Coffey MD (10/28/2018 9:50 AM) [id number]
--- NOTE | 2018-10-28 09:53 | EKG ---
[facility] [address] [place] [address] Test Date: 2018-10-28 Test Time: 09:26:31 Pat Name: EDGAR ARANDA Department: Room: Gender: F [employer]: : 1945 Requested By: ED NORRIS Order Number: [id number] Reading MD: Measurements Intervals [place] Rate: 57 P: 60 [place]: 188 QRS: 33 QRSD: 96 T: 47 QT: 456 QTc: 443 Interpretive Statements SINUS RHYTHM QRS(T) CONTOUR ABNORMALITY CONSIDER ANTEROSEPTAL MYOCARDIAL DAMAGE POSSIBLY ABNORMAL ECG RI6.01 No previous ECG available for comparison
[2018-10-28 10:20] LABS: BILIRUBIN,URINE NEGATIVE (NEG); CLARITY,URINE CLEAR; COLOR,URINE YELLOW; NITRITE,URINE NEGATIVE (NEG); PH,URINE 7.5; PROTEIN,URINE NEGATIVE (NEG-TRACE); UROBILINOGEN,URINE 0.2 mg/dL (0.2 mg/dL)
[2018-10-28 10:23] LABS: CALCIUM 8.8 mg/dL (8.5-10.1); CREATININE 0.8 mg/dL (0.6-1.0); GFR 70.3
[2018-10-28 10:29] LABS: ALBUMIN 3.6 g/dL (3.4-5.0); ALBUMIN/GLOBULIN RATIO 1.2 (1.0-1.7); TOTAL BILIRUBIN 0.4 mg/dL (0.2-1.0); TOTAL PROTEIN 6.6 g/dL (6.4-8.2)
[2018-10-28] MEDS: IOHEXOL 350 MG/ML 100 ML VIAL. IV ONE (10:30)
[2018-10-28 10:41] LABS: AMORPHOUS SEDIMENT,UR PRESENT /HPF; BACTERIA,URINE FEW /HPF (0-FEW); RBC,URINE OCC /HPF (0-2); SQUAMOUS EPITHELIAL CELL,UR OCC /LPF; WBC,URINE OCC /HPF (0-4)
[2018-10-28] MEDS ORDERED: CONTRAST GIVEN. MC PRN (10:45)
[2018-10-28 11:25] VITALS: BP 153/106
--- NOTE | 2018-10-28 11:30 | RAD ---
Examination: CT ANGIOGRAPHY CHEST History: Shortness of breath Comparison/Correlation: 07/14/2018 CT chest without contrast, 10/28/2018 portable chest x-ray exam Findings: Axial images of chest were obtained following IV contrast according to pulmonary arteriography protocol. Pulmonary arterial vasculature is normal with no thromboembolic disease identified but evaluation may be limited in regions of bibasilar linear atelectasis. Diffuse emphysematous involvement of the lung wright noted. Left lateral perihilar lobulated 0.8 cm diameter nodule on axial image 73 is stable compared to the prior exam. Nodule involving the left anterior lung at the midline on axial image 72 measuring up to 0.5 cm is stable. At the left lung base, there is a 0.5 cm diameter low-attenuation nodule on axial image 107 which is well-circumscribed. This appears be new compared to the prior exam. Cholecystectomy. Significant calcific involvement of the thoracic aorta and especially upper abdominal aorta. Impression: No pulmonary arterial thromboembolic disease. Evaluation may be limited in regions of linear bibasilar lower lobe atelectasis. Pulmonary nodules previously seen have remained stable. There is a new left basilar 0.5 cm diameter pulmonary nodule. It is low attenuation. Correlate clinically in determining interval follow-up to assess stability. Circumferential thickening of the distal esophagus. Correlate for underlying reflux. PQRS Compliance Statement: One or more of the following individualized dose reduction techniques were utilized for this examination: 1. Automated exposure control 2. Adjustment of the mA and/or kV according to patient size 3. Use of iterative reconstruction technique Electronically signed by: Levi Gomez MD (10/28/2018 11:28 AM) [id number]
[2018-10-28] MEDS ORDERED: LEVO500T59 PO (11:52)
== END 2018-10-28 11:58 | disposition home or self-care (01) ==
LOC: ER 09:09
DX: J44.9 Chronic obstructive pulmonary disease, unspecified (principal); R91.1 Solitary pulmonary nodule; J98.11 Atelectasis; Z88.1 Allergy status to other antibiotic agents; Z88.5 Allergy status to narcotic agent; Z88.6 Allergy status to analgesic agent; Z88.8 Allergy status to other drugs, medicaments and biological substances
CPT/HCPCS: 36415; 71045; 71275; 80053; 81001; 83880; 84484; 85025; 93005; 99285; Q9967

== ENCOUNTER → 2019-02-26 | Outpatient (CLI) | payer MEDICARE ==
[~2019-02-26] MED LIST changes: +CONTRAST GIVEN. MC PRN; +IOHEXOL 300 MG/ML 100ML VIAL. IV ONE; +IOHEXOL 300 MG/ML 50 ML VIAL. IJ ONE; +LEVO500T59 PO
[2019-02-26 09:13] LABS: CREATININE 0.9 mg/dL (0.6-1.0); GFR 61.2
--- NOTE | 2019-02-26 12:03 | RAD ---
EXAM: 1. CT ABDOMEN/PELVIS WITH CONTRAST. 2. FISTULOGRAM. HISTORY: Enterocutaneous fistula. Prior mesh repair of the anterior abdominal wall. TECHNIQUE: The midline supraumbilical cutaneous fistula was sterilely prepped. A pediatric feeding tube was inserted into the orifice and iodinated contrast injected. 7 fluoroscopic images were obtained in 1.1 minutes fluoroscopy time. The patient was transferred to CT. Computed tomography of the abdomen and pelvis was performed after the intravenous administration of iodinated contrast. COMPARISON: None. FINDINGS: Lung windows through the visualized portions of the bases reveal at least moderate centrilobular emphysema. There is atelectasis or scarring in the lower lobes. There are atherosclerotic calcifications of the coronary arteries. A right para-aortic lymph node measures 11 x 9 mm but has a fatty hilus. There is a small hiatal hernia. Bone windows reveal no suspicious lesions. Contrast injected through the fistula enters a small collection along the superficial aspect of the upper abdominal mesh repair. The region measures 3.6 x 1.1 cm transaxially and 2.1 cm craniocaudally. It is mostly granulation tissue and has a tiny lumen. 2 tracts extend laterally to the right and left. The right tract appears blind ending. The left extends inferiorly to the margin of the mass and communicates with an adjacent small bowel loop. See coronal CT image #5 and axial image #34. The involved site is immediately adjacent to a left para midline surgical clip on fluoroscopy. There is no intra-abdominal collection. Multiple small bowel loops are immediately apposed to the deep surface of the anterior abdominal wall throughout the supraumbilical and infraumbilical regions. The gallbladder is surgically absent. The pancreas, adrenal glands, spleen, liver and kidneys are unremarkable. There are no pathologically enlarged lymph nodes. Sigmoid diverticulosis is moderate. The transverse colon does not appear involved by the mesh process. There is no small bowel obstruction. There is no evidence of appendicitis. IMPRESSION: 1. The supraumbilical intracutaneous fistula communicates with a small collection superficial to the upper abdominal mesh repair, and with an adjacent small bowel loop along the inferior margin of the mesh. No drainable collection. 2. Note that multiple small bowel loops are immediately apposed to the deep surface of the anterior abdominal wall throughout the midline. 3. At least moderate centrilobular emphysema. 4. Small hiatal hernia. *One or more of the following individualized dose reduction techniques were utilized for this examination: 1. Automated exposure control. 2. Adjustment of the mA and/or kV according to patient size. 3. Use of iterative reconstruction technique. Electronically signed by: Tolu Toeldo MD (02/26/2019 12:00 PM) [facility]
== END | disposition home or self-care (01) ==
LOC: RAD 08:42
PROVIDERS: ATTEND Surgery
DX: J43.2 Centrilobular emphysema (principal); K57.30 Diverticulosis of large intestine without perforation or abscess without bleeding; K44.9 Diaphragmatic hernia without obstruction or gangrene; L92.8 Other granulomatous disorders of the skin and subcutaneous tissue; I25.10 Atherosclerotic heart disease of native coronary artery without angina pectoris; K63.2 Fistula of intestine
CPT/HCPCS: 36415; 73501; 74177; 82565; 84520; Q9967; 76080

== ENCOUNTER 2019-04-30 11:12 | Emergency (ER) | payer MEDICARE ==
[~2019-04-30] VITALS: Ht 157.5 cm; Wt 56.2 kg
[~2019-04-30 11:12] MED LIST changes: -CONTRAST GIVEN. MC PRN; -IOHEXOL 300 MG/ML 100ML VIAL. IV ONE; -IOHEXOL 300 MG/ML 50 ML VIAL. IJ ONE; +POTA20TA4 PO; -POTA20TA82 PO
[2019-04-30 12:38] LABS: BASO # 0.1 x10^3/uL (0.0-0.2); BASO % 1 % (0-3); EOS # 0.4 x10^3/uL (0.0-0.7); EOS % 7 % (0-3); HEMATOCRIT 38.1 % (36.0-47.0); HEMOGLOBIN 12.8 g/dL (12.0-15.5); LYMPH # 2.1 x10^3/uL (1.0-4.8); LYMPH % 33 % (24-48); MEAN CORPUSCULAR HEMOGLOBIN 31 pg (25-35); MEAN CORPUSCULAR HGB CONC 34 g/dL (31-37); MEAN CORPUSCULAR VOLUME 92 fL (79-100); MONO # 0.6 x10^3/uL (0.0-1.1); MONO % 9 % (0-9); NEUT # 3.3 x10^3/uL (1.8-7.7); NEUT % 51 % (31-73); PLATELET COUNT 286 x10^3/uL (140-400); RED BLOOD COUNT 4.12 x10^6/uL (3.50-5.40); RED CELL DISTRIBUTION WIDTH 14.4 % (11.5-14.5); WHITE BLOOD COUNT 6.4 x10^3/uL (4.0-11.0)
[2019-04-30 12:38] LABS: BILIRUBIN,URINE NEGATIVE (NEG); CLARITY,URINE CLEAR; COLOR,URINE YELLOW; NITRITE,URINE NEGATIVE (NEG); PROTEIN,URINE NEGATIVE (NEG-TRACE); UROBILINOGEN,URINE 0.2 mg/dL (0.2 mg/dL)
[2019-04-30 12:50] LABS: CALCIUM 8.9 mg/dL (8.5-10.1); CREATININE 0.9 mg/dL (0.6-1.0); GFR 61.2; POTASSIUM 3.5 mmol/L (3.5-5.1)
[2019-04-30 12:56] LABS: ALBUMIN 3.7 g/dL (3.4-5.0); ALBUMIN/GLOBULIN RATIO 1.1 (1.0-1.7); TOTAL BILIRUBIN 0.5 mg/dL (0.2-1.0); TOTAL PROTEIN 7.1 g/dL (6.4-8.2)
[2019-04-30 13:07] LABS: BACTERIA,URINE 0 /HPF (0-FEW); HYALINE CASTS, URINE FEW /HPF; RBC,URINE OCC /HPF (0-2); SQUAMOUS EPITHELIAL CELL,UR OCC /LPF; WBC,URINE OCC /HPF (0-4)
[2019-04-30] MEDS: fentaNYL PF VIAL 100 MCG/2 ML VIAL IVP ONE (13:09)
[2019-04-30] MEDS: IV NORMAL SALINE 1000ML BAG 1,000 ML IV ONE (13:09)
[2019-04-30] MEDS: IOHEXOL 300 MG/ML 100ML VIAL. IV ONE (13:13)
[2019-04-30] MEDS ORDERED: CONTRAST GIVEN. MC PRN (13:15)
--- NOTE | 2019-04-30 14:01 | RAD ---
CT ABD PELV W/ IV CONTRST ONLY Indication: Chronic abdominal wound from hernia repair, currently draining. Exposure: One or more of the following individualized dose reduction techniques were utilized for this examination: 1. Automated exposure control 2. Adjustment of the mA and/or kV according to patient size 3. Use of iterative reconstruction technique. Technique: Intravenous contrast was given. No oral contrast per request. Comparison: 02/26/2019. FINDINGS: Markings identified in both lung bases, likely fibrosis or atelectasis, similar to previous study. Heart size is enlarged. Coronary artery calcifications. Small subcentimeter low-density lesion of the left lobe of liver, 6 mm, stable since previous exam. Spleen unremarkable. Pancreas difficult to separate from unopacified bowel loops but no definite abnormality. Tiny left adrenal nodule, measuring 1 cm, is unchanged. No right adrenal mass. Kidneys demonstrate symmetric enhancement. No evidence of focal mass. No evidence of hydronephrosis. Tiny calcification in the right kidney may be vascular. Gallbladder surgically absent. The aorta is densely calcified and ectatic, no gross aneurysm. No evidence of significant lymph node enlargement. The stomach is not distended. No significant small bowel distention. No evidence of acute colitis. Colonic diverticula are identified. Moderate stool retained within the colon, greater at the right colon. The appendix is not clearly identified. No evidence of significant ascites. No evidence of pneumoperitoneum. Urinary bladder is not well distended limiting evaluation. No evidence of pelvic mass. Degenerative spondylosis. Mild scoliotic curvature of the lumbar spine towards the left. Vertebral body height intact. Degenerative changes at both hips. No evidence of aggressive bone destruction. The area of abnormal tissue or collection at the end abdominal wall is again identified. This does not appear to have increased in size or extent since the previous exam. This again is in close proximity to large and small bowel loops, and direct fistulous communication cannot be excluded. Mild stranding in the fat around the abnormal tissue is again seen. IMPRESSION: 1. Area of abnormal tissue or collection at the anterior abdominal wall is again seen. No significant overall increase in size. No large drainable fluid component is suspected. Direct enteric fistulous connection with adjacent large or small bowel is possible. 2. Tiny left adrenal nodule is stable. This may represent an adenoma. 3. Subcentimeter liver lesion is stable, too small to characterize but most likely benign. Electronically signed by: Jacob Clifford MD (04/30/2019 1:58 PM) [facility]
--- NOTE | 2019-04-30 14:15 | PHYS DOC ---
Past Medical History Past Medical History: COPD, Hypertension Additional Past Medical Histor: Hernia Past Surgical History: Appendectomy, Cholecystectomy, Hysterectomy, Other Additional Past Surgical Histo: carotid stenosis, hernias Alcohol Use: None Drug Use: None Adult General Chief Complaint Chief Complaint: ABDOMINAL PAIN HPI HPI Patient is a 74 year old female with history of hypertension, COPD, who presents to the ED today from home complaining of a chronic wound on the abdomen she's had for months from a fistula that formed years after having abdominal hernia repair. She reports she follows up with a couple specialists including the general surgeon at [facility] who referred her to another general surgeon at [facility]. She reports the area usually has yellow drainage but yesterday she noted slight bleeding. She reports she was instructed to come to the ED to be evaluated if she has any bleeding from the area. Patient denies any other symptoms. Review of Systems Review of Systems Constitutional: Denies fever or chills [] Eyes: Denies change in visual acuity, redness, or eye pain [] HENT: Denies nasal congestion or sore throat [] Respiratory: Denies cough or shortness of breath [] Cardiovascular: No additional information not addressed in HPI [] GI: Reports chronic abdominal wound with drainage. Denies abdominal pain, nausea, vomiting, bloody stools or diarrhea [] : Denies dysuria or hematuria [] Musculoskeletal: Denies back pain or joint pain [] Integument: Denies rash or skin lesions [] Neurologic: Denies headache, focal weakness or sensory changes [] All other systems were reviewed and found to be within normal limits, except as documented in this note. Current Medications Current Medications Current Medications Medications (Trade) Dose Ordered Sig/Denise Start Time Stop Time Status Last Admin Dose Admin Fentanyl Citrate (Fentanyl 2ml Vial) 50 mcg 1X ONCE 04/30/19 12:30 04/30/19 12:31 DC 04/30/19 13:09 50 MCG Info (CONTRAST GIVEN -- Rx MONITORING) 1 each PRN DAILY PRN 04/30/19 13:15 05/02/19 13:14 Iohexol (Omnipaque 300 Mg/ml) 75 ml 1X ONCE 04/30/19 13:00 04/30/19 13:01 DC 04/30/19 13:13 75 ML Sodium Chloride 1,000 ml @ 1,000 mls/hr 1X ONCE 04/30/19 12:30 04/30/19 13:29 DC 04/30/19 13:09 1,000 MLS/HR Allergies Allergies Allergies Coded Allergies Type Severity Reaction Last Updated Verified morphine Allergy Severe facial swelling 10/22/18 Yes NSAIDS (Non-Steroidal Anti-Inflamma Allergy Intermediate 10/22/18 Yes atropine Allergy Intermediate 10/22/18 Yes bacitracin Allergy Intermediate 10/22/18 Yes belladonna alkaloids Allergy Intermediate 10/22/18 Yes diphenhydramine Allergy Intermediate 10/22/18 Yes gramicidin D Allergy Intermediate 10/22/18 Yes hyoscyamine Allergy Intermediate 10/22/18 Yes ketorolac Allergy Intermediate 10/22/18 Yes neomycin Allergy Intermediate 10/22/18 Yes penicillin G Allergy Intermediate 10/22/18 Yes penicillin V Allergy Intermediate 10/22/18 Yes phenobarbital Allergy Intermediate 10/22/18 Yes polymyxin B Allergy Intermediate 10/22/18 Yes scopolamine Allergy Intermediate 10/22/18 Yes nickel Allergy Mild severe itching 10/22/18 Yes silver Allergy Mild severe itching 10/22/18 Yes Physical Exam Physical Exam Constitutional: Well developed, well nourished, no acute distress, non-toxic appearance. [] HENT: Normocephalic, atraumatic, bilateral external ears normal, oropharynx moist, no oral exudates, nose normal. [] Eyes: PERRLA, EOMI, conjunctiva normal, no discharge. [] Neck: Normal range of motion, no tenderness, supple, no stridor. [] Cardiovascular:Heart rate regular rhythm, no murmur [] Lungs & Thorax: Bilateral breath sounds clear to auscultation [] Abdomen: Anterior mid abdominal wall with a tiny wound approximately 1 x 1 centimeters with trace amount of yellow drainage, no erythema. Patient reports the drainage is chronic. Bowel sounds normal, soft, no tenderness, no masses, no pulsatile masses. [] Skin: See documentation on abdomen Back: No tenderness, no CVA tenderness. [] Extremities: No tenderness, no cyanosis, no clubbing, ROM intact, no edema. [] Neurologic: Alert and oriented X 3, normal motor function, normal sensory function, no focal deficits noted. [] Psychologic: Affect normal, judgement normal, mood normal. [] Current Patient Data Vital Signs Vital Signs Date Time Temp Pulse Resp B/P (MAP) Pulse Ox O2 Delivery O2 Flow Rate FiO2 04/30/19 11:40 98.0 60 20 163/67 (99) 98 Room Air 2.0 98.0 Lab Values Laboratory Tests Test 04/30/19 11:45 04/30/19 12:20 White Blood Count 6.4 x10^3/uL (4.0-11.0) Red Blood Count 4.12 x10^6/uL (3.50-5.40) Hemoglobin 12.8 g/dL (12.0-15.5) Hematocrit 38.1 % (36.0-47.0) Mean Corpuscular Volume 92 fL (79-100) Mean Corpuscular Hemoglobin 31 pg (25-35) Mean Corpuscular Hemoglobin Concent 34 g/dL (31-37) Red Cell Distribution Width 14.4 % (11.5-14.5) Platelet Count 286 x10^3/uL (140-400) Neutrophils (%) (Auto) 51 % (31-73) Lymphocytes (%) (Auto) 33 % (24-48) Monocytes (%) (Auto) 9 % (0-9) Eosinophils (%) (Auto) 7 % (0-3) H Basophils (%) (Auto) 1 % (0-3) Neutrophils # (Auto) 3.3 x10^3/uL (1.8-7.7) Lymphocytes # (Auto) 2.1 x10^3/uL (1.0-4.8) Monocytes # (Auto) 0.6 x10^3/uL (0.0-1.1) Eosinophils # (Auto) 0.4 x10^3/uL (0.0-0.7) Basophils # (Auto) 0.1 x10^3/uL (0.0-0.2) Sodium Level 143 mmol/L (136-145) Potassium Level 3.5 mmol/L (3.5-5.1) Chloride Level 104 mmol/L (98-107) Carbon Dioxide Level 33 mmol/L (21-32) H Anion Gap 6 (6-14) Blood Urea Nitrogen 15 mg/dL (7-20) Creatinine 0.9 mg/dL (0.6-1.0) Estimated GFR (Cockcroft-Gault) 61.2 BUN/Creatinine Ratio 17 (6-20) Glucose Level 87 mg/dL (70-99) Lactic Acid Level 1.0 mmol/L (0.4-2.0) Calcium Level 8.9 mg/dL (8.5-10.1) Total Bilirubin 0.5 mg/dL (0.2-1.0) Aspartate Amino Transferase (AST) 23 U/L (15-37) Alanine Aminotransferase (ALT) 22 U/L (14-59) Alkaline Phosphatase 100 U/L (46-116) Total Protein 7.1 g/dL (6.4-8.2) Albumin 3.7 g/dL (3.4-5.0) Albumin/Globulin Ratio 1.1 (1.0-1.7) Lipase 78 U/L (73-393) Urine Collection Type Unknown Urine Color Yellow Urine Clarity Clear Urine pH 6.0 Urine Specific Gage 1.010 Urine Protein Negative mg/dL (NEG-TRACE) Urine Glucose (UA) Negative mg/dL (NEG) Urine Ketones (Stick) Negative mg/dL (NEG) Urine Blood Negative (NEG) Urine Nitrite Negative (NEG) Urine Bilirubin Negative (NEG) Urine Urobilinogen Dipstick 0.2 mg/dL (0.2 mg/dL) Urine Leukocyte Esterase Negative (NEG) Urine RBC Occ /HPF (0-2) Urine WBC Occ /HPF (0-4) Urine Squamous Epithelial Cells Occ /LPF Urine Bacteria 0 /HPF (0-FEW) Urine Hyaline Casts Few /HPF Urine Mucus Slight /LPF Laboratory Tests 04/30/19 11:45 Laboratory Tests 04/30/19 11:45 EKG EKG [] Radiology/Procedures Radiology/Procedures []PROCEDURE: CT ABD PELV W/ IV CONTRST ONLY CT ABD PELV W/ IV CONTRST ONLY Indication: Chronic abdominal wound from hernia repair, currently draining. Exposure: One or more of the following individualized dose reduction techniques were utilized for this examination: 1. Automated exposure control 2. Adjustment of the mA and/or kV according to patient size 3. Use of iterative reconstruction technique. Technique: Intravenous contrast was given. No oral contrast per request. Comparison: 02/26/2019. FINDINGS: Markings identified in both lung bases, likely fibrosis or atelectasis, similar to previous study. Heart size is enlarged. Coronary artery calcifications. Small subcentimeter low-density lesion of the left lobe of liver, 6 mm, stable since previous exam. Spleen unremarkable. Pancreas difficult to separate from unopacified bowel loops but no definite abnormality. Tiny left adrenal nodule, measuring 1 cm, is unchanged. No right adrenal mass. Kidneys demonstrate symmetric enhancement. No evidence of focal mass. No evidence of hydronephrosis. Tiny calcification in the right kidney may be vascular. Gallbladder surgically absent. The aorta is densely calcified and ectatic, no gross aneurysm. No evidence of significant lymph node enlargement. The stomach is not distended. No significant small bowel distention. No evidence of acute colitis. Colonic diverticula are identified. Moderate stool retained within the colon, greater at the right colon. The appendix is not clearly identified. No evidence of significant ascites. No evidence of pneumoperitoneum. Urinary bladder is not well distended limiting evaluation. No evidence of pelvic mass. Degenerative spondylosis. Mild scoliotic curvature of the lumbar spine towards the left. Vertebral body height intact. Degenerative changes at both hips. No evidence of aggressive bone destruction. The area of abnormal tissue or collection at the end abdominal wall is again identified. This does not appear to have increased in size or extent since the previous exam. This again is in close proximity to large and small bowel loops, and direct fistulous communication cannot be excluded. Mild stranding in the fat around the abnormal tissue is again seen. IMPRESSION: 1. Area of abnormal tissue or collection at the anterior abdominal wall is again seen. No significant overall increase in size. No large drainable fluid component is suspected. Direct enteric fistulous connection with adjacent large or small bowel is possible. 2. Tiny left adrenal nodule is stable. This may represent an adenoma. 3. Subcentimeter liver lesion is stable, too small to characterize but most likely benign. Electronically signed by: Jacob Clifford MD (04/30/2019 1:58 PM) [id number] DICTATED and SIGNED BY: JACOB CLIFFORD MD DATE: 04/30/19 1631 Course & Med Decision Making Course & Med Decision Making Pertinent Labs and Imaging studies reviewed. (See chart for details) This is a 74-year-old female patient presenting to the ED to be evaluated for chronic abdominal wound she's had for months. She follows up with the couple's patients his including the general surgeon she is supposed to start seeing at [facility]. Labs are negative. CT of the abdomen and pelvic is negative for any acute findings. Patient and caregiver were reassured, patient was discharged to home. Follow-up with [place] general surgeon as scheduled. Dragon Disclaimer Dragon Disclaimer This electronic medical record was generated, in whole or in part, using a voice recognition dictation system. Departure Departure Impression: Primary Impression: Chronic abdominal wound infection Disposition: HOME, SELF-CARE Condition: STABLE Referrals: TRINO CHOUDHARY MD (PCP) Follow up with your doctor in 1-2 weeks Patient Instructions: Wound Check Additional Instructions: You were evaluated in the emergency room for abdominal wound. Please follow-up with the general surgeon at [facility] as scheduled. Keep the area clean and dry. Problem Qualifiers Primary Impression: Chronic abdominal wound infection Encounter type: initial encounter Qualified Codes: S31.109A - Unspecified open wound of abdominal wall, unspecified quadrant without penetration into peritoneal cavity, initial encounter; L08.9 - Local infection of the skin and subcutaneous tissue, unspecified ANGIE SOTO APRN Apr 30, 2019 14:15
[2019-04-30 14:20] VITALS: BP 146/79
== END 2019-04-30 14:35 | disposition home or self-care (01) ==
LOC: ER 11:12
DX: S31.109A Unspecified open wound of abdominal wall, unspecified quadrant without penetration into peritoneal cavity, initial encounter (principal); L08.9 Local infection of the skin and subcutaneous tissue, unspecified; I10 Essential (primary) hypertension; J44.9 Chronic obstructive pulmonary disease, unspecified; Z90.49 Acquired absence of other specified parts of digestive tract; Z90.710 Acquired absence of both cervix and uterus; Z90.89 Acquired absence of other organs; Z98.890 Other specified postprocedural states; Z88.1 Allergy status to other antibiotic agents; Z88.5 Allergy status to narcotic agent; Z88.0 Allergy status to penicillin; Z88.6 Allergy status to analgesic agent; Z88.8 Allergy status to other drugs, medicaments and biological substances; Y83.8 Other surgical procedures as the cause of abnormal reaction of the patient, or of later complication, without mention of misadventure at the time of the procedure
CPT/HCPCS: 36415; 74177; 80053; 81001; 83605; 83690; 85025; 96374; 99285; J3010; J7030; Q9967

== ENCOUNTER 2019-07-14 18:06 | Inpatient (IN) | payer MEDICARE ==
[~2019-07-14] VITALS: Ht 157.5 cm; Wt 50.1 kg
[~2019-07-14 18:06] MED LIST changes: +ALPR0.25 PO; +ESCI5TAB PO; -GUAI400T63 PO; +GUAI400T78 PO; +HALO0.5T PO; +HALO2TAB PO; +LISI-334 PO
[2019-07-14] MEDS ORDERED: methylPREDNISolone SOD SUCC PF 125 MG/2 ML VIAL. IV ONE (18:30)
[2019-07-14] MEDS ORDERED: IPRATRPIUM/ALBUTEROL 0.5/2.5MG 3 ML NEBU. NEB ONE (18:30)
--- NOTE | 2019-07-14 18:33 | PHYS DOC ---
Past Medical History Past Medical History: A-Fib, CAD, CHF, COPD, High Cholesterol, Hypertension Additional Past Medical Histor: UMB HERNIA, MOREIRA'S ESOPHAGUS, OPTIC NERVE DISORDER Past Surgical History: Appendectomy, Cholecystectomy, Hysterectomy, Other Additional Past Surgical Histo: carotid stenosis, hernias Smoking Status: Former Smoker Alcohol Use: None Drug Use: None Adult General Chief Complaint Chief Complaint: SHORTNESS OF BREATH HPI HPI Patient is a 74 year old female with history of CHF, COPD, A. 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 Patient is not giving us much information. She is very defensive. She states the home health nurse listened to her lungs and sent her to the ED to be evaluated for pneumonia. Review of Systems Review of Systems Constitutional: Denies fever or chills [] Eyes: Denies change in visual acuity, redness, or eye pain [] HENT: Denies nasal congestion or sore throat [] Respiratory: Reports cough and shortness of breath [] Cardiovascular: No additional information not addressed in HPI [] GI: Denies abdominal pain, nausea, vomiting, bloody stools or diarrhea [] : Denies dysuria or hematuria [] Musculoskeletal: Denies back pain or joint pain [] Integument: Denies rash or skin lesions [] Neurologic: Denies headache, focal weakness or sensory changes [] All other systems were reviewed and found to be within normal limits, except as documented in this note. Current Medications Current Medications Current Medications Medications (Trade) Dose Ordered Sig/Denise Start Time Stop Time Status Last Admin Dose Admin Albuterol/ Ipratropium (Duoneb) 3 ml 1X ONCE 07/14/19 18:30 07/14/19 18:31 DC 07/14/19 19:55 3 ML Methylprednisolone Sodium Succinate (SOLU-Medrol 125MG VIAL) 125 mg 1X ONCE 07/14/19 18:30 07/14/19 18:31 DC 07/14/19 19:12 125 MG Allergies Allergies Allergies Coded Allergies Type Severity Reaction Last Updated Verified morphine Allergy Severe facial swelling 10/22/18 Yes NSAIDS (Non-Steroidal Anti-Inflamma Allergy Intermediate 10/22/18 Yes atropine Allergy Intermediate 10/22/18 Yes bacitracin Allergy Intermediate 10/22/18 Yes belladonna alkaloids Allergy Intermediate 10/22/18 Yes diphenhydramine Allergy Intermediate 10/22/18 Yes gramicidin D Allergy Intermediate 10/22/18 Yes hyoscyamine Allergy Intermediate 10/22/18 Yes ketorolac Allergy Intermediate 10/22/18 Yes neomycin Allergy Intermediate 10/22/18 Yes penicillin G Allergy Intermediate 10/22/18 Yes penicillin V Allergy Intermediate 10/22/18 Yes phenobarbital Allergy Intermediate 10/22/18 Yes polymyxin B Allergy Intermediate 10/22/18 Yes scopolamine Allergy Intermediate 10/22/18 Yes nickel Allergy Mild severe itching 10/22/18 Yes silver Allergy Mild severe itching 10/22/18 Yes Physical Exam Physical Exam Constitutional: Well developed, well nourished, no acute distress, non-toxic appearance. [] HENT: Normocephalic, atraumatic, bilateral external ears normal, oropharynx moist, no oral exudates, nose normal. [] Eyes: PERRLA, EOMI, conjunctiva normal, no discharge. [] Neck: Normal range of motion, no tenderness, supple, no stridor. [] Cardiovascular:Heart rate regular rhythm, no murmur [] Lungs & Thorax: Patient appears short of air, on oxygen 2 L chronically, coarse lung sounds. Abdomen: A tiny open wound mid upper abdomen-chronic, no signs of infection, bowel sounds normal, soft, no tenderness, no masses, no pulsatile masses. [] Skin: Warm, dry, no erythema, no rash. [] Back: No tenderness, no CVA tenderness. [] Extremities: No tenderness, no cyanosis, no clubbing, ROM intact, no edema. [] Neurologic: Alert and oriented X 3, normal motor function, normal sensory function, no focal deficits noted. [] Psychologic: Affect normal, judgement normal, mood normal. [] Current Patient Data Vital Signs Vital Signs Date Time Temp Pulse Resp B/P (MAP) Pulse Ox O2 Delivery O2 Flow Rate FiO2 07/14/19 21:42 98 26 136/80 (98) 94 Nasal Cannula 07/14/19 20:42 2.0 07/14/19 18:10 98.1 98.1 Lab Values Laboratory Tests Test 07/14/19 18:27 07/14/19 19:05 White Blood Count 7.0 x10^3/uL (4.0-11.0) Red Blood Count 3.72 x10^6/uL (3.50-5.40) Hemoglobin 11.6 g/dL (12.0-15.5) L Hematocrit 34.3 % (36.0-47.0) L Mean Corpuscular Volume 92 fL (79-100) Mean Corpuscular Hemoglobin 31 pg (25-35) Mean Corpuscular Hemoglobin Concent 34 g/dL (31-37) Red Cell Distribution Width 16.3 % (11.5-14.5) H Platelet Count 305 x10^3/uL (140-400) Neutrophils (%) (Auto) 57 % (31-73) Lymphocytes (%) (Auto) 25 % (24-48) Monocytes (%) (Auto) 9 % (0-9) Eosinophils (%) (Auto) 8 % (0-3) H Basophils (%) (Auto) 1 % (0-3) Neutrophils # (Auto) 4.0 x10^3/uL (1.8-7.7) Lymphocytes # (Auto) 1.8 x10^3/uL (1.0-4.8) Monocytes # (Auto) 0.6 x10^3/uL (0.0-1.1) Eosinophils # (Auto) 0.6 x10^3/uL (0.0-0.7) Basophils # (Auto) 0.0 x10^3/uL (0.0-0.2) Sodium Level 143 mmol/L (136-145) Potassium Level 3.9 mmol/L (3.5-5.1) Chloride Level 105 mmol/L (98-107) Carbon Dioxide Level 33 mmol/L (21-32) H Anion Gap 5 (6-14) L Blood Urea Nitrogen 17 mg/dL (7-20) Creatinine 0.9 mg/dL (0.6-1.0) Estimated GFR (Cockcroft-Gault) 61.2 BUN/Creatinine Ratio 19 (6-20) Glucose Level 126 mg/dL (70-99) H Lactic Acid Level 1.2 mmol/L (0.4-2.0) Calcium Level 9.2 mg/dL (8.5-10.1) Magnesium Level 2.1 mg/dL (1.8-2.4) Total Bilirubin 0.4 mg/dL (0.2-1.0) Aspartate Amino Transferase (AST) 22 U/L (15-37) Alanine Aminotransferase (ALT) 22 U/L (14-59) Alkaline Phosphatase 76 U/L (46-116) Creatine Kinase 112 U/L (26-192) Creatine Kinase MB (Mass) 2.3 ng/mL (0.0-3.6) Creatine Kinase MB Relative Index 2.1 % (0-4) Troponin I Quantitative < 0.017 ng/mL (0.000-0.055) IQ-Tvh-E-Type Natriuretic Peptide 846 pg/mL (0-124) H Total Protein 6.8 g/dL (6.4-8.2) Albumin 3.8 g/dL (3.4-5.0) Albumin/Globulin Ratio 1.3 (1.0-1.7) Procalcitonin < 0.10 ng/mL (0.00-0.10) Thyroid Stimulating Hormone (TSH) 1.770 uIU/mL (0.358-3.74) Influenza Type A Antigen Negative (NEGATIVE) Influenza Type B Antigen Negative (NEGATIVE) Laboratory Tests 07/14/19 18:27 Laboratory Tests 07/14/19 18:27 EKG EKG [address] Chacko sinus rhythm Hr 75 no STEMI Radiology/Procedures Radiology/Procedures []PROCEDURE: PORTABLE CHEST 1V EXAM: AP View of the chest DATE: 07/14/2019 6:21 PM INDICATION: Shortness of air COMPARISON: 05/09/2019, 05/04/2019 FINDINGS: The heart is not enlarged. Bilateral emphysematous changes are seen. Small bilateral pleural effusions. Left greater than right lung base airspace opacities are seen. Interstitial prominence is also seen. IMPRESSION: 1. Left greater than right lung base airspace opacities may represent atelectasis or consolidation however compared to 05/09/2019 are improved. 2. Small bilateral pleural effusions. 3. Emphysematous changes are seen. Electronically signed by: Vinny Powers MD (07/14/2019 7:46 PM) [id number] DICTATED and SIGNED BY: VINNY POWERS MD DATE: 07/14/19 1946 Course & Med Decision Making Course & Med Decision Making Pertinent Labs and Imaging studies reviewed. (See chart for details) This is a 74-year-old female patient presenting to the ED today with shortness of breath, symptoms began a couple days ago. Patient defiant not giving us the exact dates. Patient is afebrile, O2 sats 94% on 2 L of oxygen. Given Solu-Medrol and a DuoNeb treatment on arrival. Labs are negative for any acute findings, EKG is negative, chest x-ray noted for bilateral pleural effusions, emphysema and possible atelectasis or pneumonia Started on Levaquin. Spoke with Dr. Doshi who accepted patient for admission Patient later on apologized for her behavior. Dragon Disclaimer Dragon Disclaimer This electronic medical record was generated, in whole or in part, using a voice recognition dictation system. Departure Departure Impression: Primary Impression: COPD exacerbation Disposition: ADMITTED INPATIENT Condition: STABLE Referrals: TRINO CHOUDHARY MD (PCP) ANGIE SOTO APRN Jul 14, 2019 18:33
[2019-07-14 18:43] LABS: BASO % 1 % (0-3); EOS # 0.6 x10^3/uL (0.0-0.7); EOS % 8 % (0-3); HEMATOCRIT 34.3 % (36.0-47.0); HEMOGLOBIN 11.6 g/dL (12.0-15.5); LYMPH # 1.8 x10^3/uL (1.0-4.8); LYMPH % 25 % (24-48); MEAN CORPUSCULAR HEMOGLOBIN 31 pg (25-35); MEAN CORPUSCULAR HGB CONC 34 g/dL (31-37); MEAN CORPUSCULAR VOLUME 92 fL (79-100); MONO # 0.6 x10^3/uL (0.0-1.1); MONO % 9 % (0-9); NEUT % 57 % (31-73); PLATELET COUNT 305 x10^3/uL (140-400); RED BLOOD COUNT 3.72 x10^6/uL (3.50-5.40); RED CELL DISTRIBUTION WIDTH 16.3 % (11.5-14.5)
[2019-07-14 18:53] LABS: CALCIUM 9.2 mg/dL (8.5-10.1); CREATININE 0.9 mg/dL (0.6-1.0); GFR 61.2; POTASSIUM 3.9 mmol/L (3.5-5.1)
[2019-07-14 19:06] LABS: ALBUMIN 3.8 g/dL (3.4-5.0); ALBUMIN/GLOBULIN RATIO 1.3 (1.0-1.7); MAGNESIUM 2.1 mg/dL (1.8-2.4); TOTAL BILIRUBIN 0.4 mg/dL (0.2-1.0); TOTAL PROTEIN 6.8 g/dL (6.4-8.2)
[2019-07-14 19:44] LABS: INFLUENZA A PATIENT NEGATIVE (NEGATIVE); INFLUENZA B PATIENT NEGATIVE (NEGATIVE)
--- NOTE | 2019-07-14 19:49 | RAD ---
EXAM: AP View of the chest DATE: 07/14/2019 6:21 PM INDICATION: Shortness of air COMPARISON: 05/09/2019, 05/04/2019 FINDINGS: The heart is not enlarged. Bilateral emphysematous changes are seen. Small bilateral pleural effusions. Left greater than right lung base airspace opacities are seen. Interstitial prominence is also seen. IMPRESSION: 1. Left greater than right lung base airspace opacities may represent atelectasis or consolidation however compared to 05/09/2019 are improved. 2. Small bilateral pleural effusions. 3. Emphysematous changes are seen. Electronically signed by: Vinny Panchal MD (07/14/2019 7:46 PM) [id number]
[2019-07-14] MEDS ORDERED: ONDANSETRON PF 4 MG/2 ML VIAL. IV PRN (22:15)
[2019-07-14 23:18] VITALS: BP 113/47
[2019-07-15] MEDS ORDERED: ACETAMINOPHEN 650 MG/20.3 ML SOLUTION. PO PRN (02:00)
[2019-07-15] MEDS ORDERED: ACETAMINOPHEN 325 MG TABLET. PO PRN (02:00)
[2019-07-15 02:30] VITALS: BP 106/49
[2019-07-15] MEDS: BENZONATATE 100 MG CAPSULE. PO SCH ×4 (02:45→20:34)
--- NOTE | 2019-07-15 03:07 | NUR ---
Patient arrived to unit from ED, admission care done, home meds verified with patient, some med she don't remember ,we will ask and verify with daughter in am about pt's home medications?
[2019-07-15 04:20] LABS: BASO % 0 % (0-3); EOS % 0 % (0-3); HEMATOCRIT 32.6 % (36.0-47.0); HEMOGLOBIN 11.2 g/dL (12.0-15.5); LYMPH # 0.7 x10^3/uL (1.0-4.8); LYMPH % 14 % (24-48); MEAN CORPUSCULAR HEMOGLOBIN 32 pg (25-35); MEAN CORPUSCULAR HGB CONC 34 g/dL (31-37); MEAN CORPUSCULAR VOLUME 92 fL (79-100); MONO # 0.1 x10^3/uL (0.0-1.1); MONO % 1 % (0-9); NEUT # 4.7 x10^3/uL (1.8-7.7); NEUT % 85 % (31-73); PLATELET COUNT 287 x10^3/uL (140-400); RED BLOOD COUNT 3.53 x10^6/uL (3.50-5.40); RED CELL DISTRIBUTION WIDTH 15.6 % (11.5-14.5); WHITE BLOOD COUNT 5.5 x10^3/uL (4.0-11.0)
[2019-07-15 04:29] LABS: CALCIUM 8.9 mg/dL (8.5-10.1); CREATININE 1.1 mg/dL (0.6-1.0); GFR 48.6; POTASSIUM 4.4 mmol/L (3.5-5.1)
--- NOTE | 2019-07-15 05:23 | EKG ---
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
[2019-07-15] MEDS ORDERED: ALBUTEROL SULFATE 2.5 MG/3 ML NEBU. NEB PRN ×2 (05:30→08:30)
[2019-07-15 07:00] VITALS: BP 116/55
[2019-07-15] MEDS ORDERED: IPRATRPIUM/ALBUTEROL 0.5/2.5MG 3 ML NEBU. NEB SCH (08:00)
--- NOTE | 2019-07-15 08:32 | NUR ---
SW following. Discussed with RN, pt is from home with family, up x1 with a walker. No PT/OT ordered. SW will continue to follow.
--- NOTE | 2019-07-15 09:29 | PDOC1 ---
History and Physical Date of Admission Date of Admission DATE: 07/15/19 TIME: 09:28 History of Present Illness History of Present Illness Patient is a 74 year old female with history of CHF, COPD, A. 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 Patient is not giving us much information. She is very defensive. She states the home health nurse listened to her lungs and sent her to the ED to be evaluated for pneumonia. Past Medical History Cardiovascular: AFIB, CHF, HTN, Hyperlipidemia, Other Pulmonary: COPD CENTRAL NERVOUS SYSTEM: Dementia GI: GERD Psych: Anxiety Musculoskeletal: Osteoarthritis Endocrine: Hypothyroidism Past Surgical History Past Surgical History: Appendectomy, Cholecystectomy, Hysterectomy Social History ALCOHOL: none Current Problem List Problem List Problems Medical Problems: (1) Acute respiratory failure Status: Acute Current Medications Current Medications Current Medications Albuterol/ Ipratropium (Duoneb) 3 ml 1X ONCE NEB Last administered on 07/14/19at 19:55; Start 07/14/19 at 18:30; Stop 07/14/19 at 18:31; Status DC Methylprednisolone Sodium Succinate (SOLU-Medrol 125MG VIAL) 125 mg 1X ONCE IV Last administered on 07/14/19at 19:12; Start 07/14/19 at 18:30; Stop 07/14/19 at 18:31; Status DC Levofloxacin/ Dextrose 100 ml @ 100 mls/hr 1X ONCE IV Last administered on 07/14/19at 22:04; Start 07/14/19 at 22:00; Stop 07/14/19 at 22:59; Status DC Ondansetron HCl (Zofran) 4 mg PRN Q8HRS PRN IV NAUSEA/VOMITING; Start 07/14/19 at 22:15; Stop 07/15/19 at 22:14 Albuterol/ Ipratropium (Duoneb) 3 ml RTQID NEB Last administered on 07/15/19at 08:15; Start 07/15/19 at 08:00; Stop 07/16/19 at 07:59 Benzonatate (Tessalon Perle) 100 mg [id number] PO Last administered on 07/15/19at 08:33; Start 07/15/19 at 02:00 Acetaminophen (Tylenol) 325 mg PRN Q6HRS PRN PO MILD PAIN / TEMP Last ad ministered on 07/15/19at 02:45; Start 07/15/19 at 02:00 Acetaminophen (Tylenol) 650 mg PRN Q6HRS PRN PO MILD PAIN / TEMP; Start 07/15/19 at 02:00 Albuterol Sulfate (Ventolin Neb Soln) 2.5 mg PRN Q4HRS PRN NEB SHORTNESS OF BREATH; Start 07/15/19 at 05:30; Stop 07/15/19 at 08:27; Status DC Albuterol Sulfate (Ventolin Neb Soln) 2.5 mg PRN Q2HR PRN NEB SHORTNESS OF BREATH; Start 07/15/19 at 08:30 Active Scripts Active Haloperidol 0.5 Mg Tablet 1 Mg PO Q8H PRN 30 Days Haloperidol 2 Mg Tablet 2 Mg PO HS 30 Days Milk Of Magnesia (Magnesium Hydroxide) 400 Mg/5 Ml Oral.susp 2,400 Mg PO PRN DAILY PRN 14 Days Reported Escitalopram Oxalate 5 Mg Tablet 5 Mg PO DAILY Lisinopril 20 Mg Tablet 1 Tab PO DAILY Levothyroxine Sodium 88 Mcg Tablet 1 Tab PO DAILY Anoro Ellipta 62.5-25 Mcg Inh (Umeclidinium Brm/Vilanterol Tr) 1 Each Disk.w.dev 1 Each IH DAILY Triamcinolone Acetonide 0.1% Oint (Triamcinolone Acetonide) 15 Gm Oint...g. 1 Mayank TP PRN BID MIX WITH EUCERIN DIRECTED BY PHYSICIAN Proair Hfa Inhaler (Albuterol Sulfate) 8.5 Gm Hfa.aer.ad 2 Puff INH PRN Q6HRS PRN Potassium Chloride (Potassium Chloride) 20 Meq Tablet.er 20 Meq PO DAILY Protonix (Pantoprazole Sodium) 20 Mg Tablet.dr 40 Mg PO DAILY Fish Oil 1,000 mg Softgel ([place]-3/Dha/Epa/Fish Oil) 1,000 Mg Capsule 1,000 Mg PO DAILY NITROGLYCERIN SubLingual (Nitroglycerin) 0.4 Mg Tab.subl 0.4 Mg SL PRN Q5MIN PRN Multivitamins (Multivitamin) 1 Each Tablet 1 Tab PO DAILY Metoprolol Succinate ( Xl ) (Metoprolol Succinate) 25 Mg Tab.er.24h 25 Mg PO DAILY Namenda (Memantine Hcl) 10 Mg Tablet 10 Mg PO DAILY Isosorbide Mononitrate Er (Isosorbide Mononitrate) 30 Mg Tab.er.24h 30 Mg PO DAILY Guaifenesin 400 Mg Tablet 400 Mg PO PRN BID Lasix (Furosemide) 20 Mg Tablet 10 Mg PO DAILY Eliquis (Apixaban) 5 Mg Tablet 5 Mg PO BID Cardizem Cd (Diltiazem Hcl) 180 Mg Cap.er.24h 120 Mg PO DAILY Coenzyme Q10 (Ubidecarenone) 10 Mg Capsule 10 Mg PO DAILY Vitamin D (Cholecalciferol (Vitamin D3)) 2,000 Unit Capsule 1 Cap PO DAILY Lipitor (Atorvastatin Calcium) 40 Mg Tablet 1 Tab PO QHS Aspirin 81 Mg Tab.chew 1 Tab PO DAILY Fosamax (Alendronate Sodium) 70 Mg Tablet 1 Tab PO WEEKLY Allergies Allergies: Coded Allergies: morphine (Verified Allergy, Severe, facial swelling, 10/22/18) NSAIDS (Non-Steroidal Anti-Inflamma (Verified Allergy, Intermediate, 10/22/18) atropine (Verified Allergy, Intermediate, 10/22/18) bacitracin (Verified Allergy, Intermediate, 10/22/18) belladonna alkaloids (Verified Allergy, Intermediate, 10/22/18) diphenhydramine (Verified Allergy, Intermediate, 10/22/18) gramicidin D (Verified Allergy, Intermediate, 10/22/18) hyoscyamine (Verified Allergy, Intermediate, 10/22/18) ketorolac (Verified Allergy, Intermediate, 10/22/18) neomycin (Verified Allergy, Intermediate, 10/22/18) penicillin G (Verified Allergy, Intermediate, 10/22/18) penicillin V (Verified Allergy, Intermediate, 10/22/18) phenobarbital (Verified Allergy, Intermediate, 10/22/18) polymyxin B (Verified Allergy, Intermediate, 10/22/18) scopolamine (Verified Allergy, Intermediate, 10/22/18) nickel (Verified Allergy, Mild, severe itching, 10/22/18) silver (Verified Allergy, Mild, severe itching, 10/22/18) Vitals Vitals Vital Signs Date Time Temp Pulse Resp B/P (MAP) Pulse Ox O2 Delivery O2 Flow Rate FiO2 07/15/19 08:16 97 Nasal Cannula 2.0 07/15/19 07:00 98.2 79 18 116/55 (75) 98.2 Labs Labs Laboratory Tests Test 07/14/19 18:27 07/14/19 19:05 07/15/19 03:30 White Blood Count 7.0 x10^3/uL (4.0-11.0) 5.5 x10^3/uL (4.0-11.0) Red Blood Count 3.72 x10^6/uL (3.50-5.40) 3.53 x10^6/uL (3.50-5.40) Hemoglobin 11.6 g/dL (12.0-15.5) 11.2 g/dL (12.0-15.5) Hematocrit 34.3 % (36.0-47.0) 32.6 % (36.0-47.0) Mean Corpuscular Volume 92 fL (79-100) 92 fL (79-100) Mean Corpuscular Hemoglobin 31 pg (25-35) 32 pg (25-35) Mean Corpuscular Hemoglobin Concent 34 g/dL (31-37) 34 g/dL (31-37) Red Cell Distribution Width 16.3 % (11.5-14.5) 15.6 % (11.5-14.5) Platelet Count 305 x10^3/uL (140-400) 287 x10^3/uL (140-400) Neutrophils (%) (Auto) 57 % (31-73) 85 % (31-73) Lymphocytes (%) (Auto) 25 % (24-48) 14 % (24-48) Monocytes (%) (Auto) 9 % (0-9) 1 % (0-9) Eosinophils (%) (Auto) 8 % (0-3) 0 % (0-3) Basophils (%) (Auto) 1 % (0-3) 0 % (0-3) Neutrophils # (Auto) 4.0 x10^3/uL (1.8-7.7) 4.7 x10^3/uL (1.8-7.7) Lymphocytes # (Auto) 1.8 x10^3/uL (1.0-4.8) 0.7 x10^3/uL (1.0-4.8) Monocytes # (Auto) 0.6 x10^3/uL (0.0-1.1) 0.1 x10^3/uL (0.0-1.1) Eosinophils # (Auto) 0.6 x10^3/uL (0.0-0.7) 0.0 x10^3/uL (0.0-0.7) Basophils # (Auto) 0.0 x10^3/uL (0.0-0.2) 0.0 x10^3/uL (0.0-0.2) Sodium Level 143 mmol/L (136-145) 141 mmol/L (136-145) Potassium Level 3.9 mmol/L (3.5-5.1) 4.4 mmol/L (3.5-5.1) Chloride Level 105 mmol/L (98-107) 104 mmol/L (98-107) Carbon Dioxide Level 33 mmol/L (21-32) 29 mmol/L (21-32) Anion Gap 5 (6-14) 8 (6-14) Blood Urea Nitrogen 17 mg/dL (7-20) 19 mg/dL (7-20) Creatinine 0.9 mg/dL (0.6-1.0) 1.1 mg/dL (0.6-1.0) Estimated GFR (Cockcroft-Gault) 61.2 48.6 BUN/Creatinine Ratio 19 (6-20) Glucose Level 126 mg/dL (70-99) 205 mg/dL (70-99) Lactic Acid Level 1.2 mmol/L (0.4-2.0) Calcium Level 9.2 mg/dL (8.5-10.1) 8.9 mg/dL (8.5-10.1) Magnesium Level 2.1 mg/dL (1.8-2.4) Total Bilirubin 0.4 mg/dL (0.2-1.0) Aspartate Amino Transf (AST/SGOT) 22 U/L (15-37) Alanine Aminotransferase (ALT/SGPT) 22 U/L (14-59) Alkaline Phosphatase 76 U/L (46-116) Creatine Kinase 112 U/L (26-192) Creatine Kinase MB (Mass) 2.3 ng/mL (0.0-3.6) Creatine Kinase MB Relative Index 2.1 % (0-4) Troponin I Quantitative < 0.017 ng/mL (0.000-0.055) WB-Cae-T-Type Natriuretic Peptide 846 pg/mL (0-124) Total Protein 6.8 g/dL (6.4-8.2) Albumin 3.8 g/dL (3.4-5.0) Albumin/Globulin Ratio 1.3 (1.0-1.7) Procalcitonin < 0.10 ng/mL (0.00-0.10) Thyroid Stimulating Hormone (TSH) 1.770 uIU/mL (0.358-3.74) Influenza Type A Antigen Negative (NEGATIVE) Influenza Type B Antigen Negative (NEGATIVE) Laboratory Tests Test 07/14/19 18:27 07/14/19 19:05 07/15/19 03:30 White Blood Count 7.0 x10^3/uL (4.0-11.0) 5.5 x10^3/uL (4.0-11.0) Red Blood Count 3.72 x10^6/uL (3.50-5.40) 3.53 x10^6/uL (3.50-5.40) Hemoglobin 11.6 g/dL (12.0-15.5) 11.2 g/dL (12.0-15.5) Hematocrit 34.3 % (36.0-47.0) 32.6 % (36.0-47.0) Mean Corpuscular Volume 92 fL (79-100) 92 fL (79-100) Mean Corpuscular Hemoglobin 31 pg (25-35) 32 pg (25-35) Mean Corpuscular Hemoglobin Concent 34 g/dL (31-37) 34 g/dL (31-37) Red Cell Distribution Width 16.3 % (11.5-14.5) 15.6 % (11.5-14.5) Platelet Count 305 x10^3/uL (140-400) 287 x10^3/uL (140-400) Neutrophils (%) (Auto) 57 % (31-73) 85 % (31-73) Lymphocytes (%) (Auto) 25 % (24-48) 14 % (24-48) Monocytes (%) (Auto) 9 % (0-9) 1 % (0-9) Eosinophils (%) (Auto) 8 % (0-3) 0 % (0-3) Basophils (%) (Auto) 1 % (0-3) 0 % (0-3) Neutrophils # (Auto) 4.0 x10^3/uL (1.8-7.7) 4.7 x10^3/uL (1.8-7.7) Lymphocytes # (Auto) 1.8 x10^3/uL (1.0-4.8) 0.7 x10^3/uL (1.0-4.8) Monocytes # (Auto) 0.6 x10^3/uL (0.0-1.1) 0.1 x10^3/uL (0.0-1.1) Eosinophils # (Auto) 0.6 x10^3/uL (0.0-0.7) 0.0 x10^3/uL (0.0-0.7) Basophils # (Auto) 0.0 x10^3/uL (0.0-0.2) 0.0 x10^3/uL (0.0-0.2) Sodium Level 143 mmol/L (136-145) 141 mmol/L (136-145) Potassium Level 3.9 mmol/L (3.5-5.1) 4.4 mmol/L (3.5-5.1) Chloride Level 105 mmol/L (98-107) 104 mmol/L (98-107) Carbon Dioxide Level 33 mmol/L (21-32) 29 mmol/L (21-32) Anion Gap 5 (6-14) 8 (6-14) Blood Urea Nitrogen 17 mg/dL (7-20) 19 mg/dL (7-20) Creatinine 0.9 mg/dL (0.6-1.0) 1.1 mg/dL (0.6-1.0) Estimated GFR (Cockcroft-Gault) 61.2 48.6 BUN/Creatinine Ratio 19 (6-20) Glucose Level 126 mg/dL (70-99) 205 mg/dL (70-99) Lactic Acid Level 1.2 mmol/L (0.4-2.0) Calcium Level 9.2 mg/dL (8.5-10.1) 8.9 mg/dL (8.5-10.1) Magnesium Level 2.1 mg/dL (1.8-2.4) Total Bilirubin 0.4 mg/dL (0.2-1.0) Aspartate Amino Transf (AST/SGOT) 22 U/L (15-37) Alanine Aminotransferase (ALT/SGPT) 22 U/L (14-59) Alkaline Phosphatase 76 U/L (46-116) Creatine Kinase 112 U/L (26-192) Creatine Kinase MB (Mass) 2.3 ng/mL (0.0-3.6) Creatine Kinase MB Relative Index 2.1 % (0-4) Troponin I Quantitative < 0.017 ng/mL (0.000-0.055) VT-Sqs-I-Type Natriuretic Peptide 846 pg/mL (0-124) Total Protein 6.8 g/dL (6.4-8.2) Albumin 3.8 g/dL (3.4-5.0) Albumin/Globulin Ratio 1.3 (1.0-1.7) Procalcitonin < 0.10 ng/mL (0.00-0.10) Thyroid Stimulating Hormone (TSH) 1.770 uIU/mL (0.358-3.74) Influenza Type A Antigen Negative (NEGATIVE) Influenza Type B Antigen Negative (NEGATIVE) VTE Prophylaxis Ordered VTE Prophylaxis Devices: No VTE Pharmacological Prophylaxi: Yes ISADORA COMER MD Jul 15, 2019 09:29
[2019-07-15] MEDS ORDERED: NITROGLYCERIN SUBLINGUAL 0.4 MG BOTTLE OF 25. SL PRN (09:45)
[2019-07-15] MEDS ORDERED: ALBUTEROL SULFATE 2.5 MG/3 ML NEBU. INH PRN (09:45)
[2019-07-15] MEDS ORDERED: TRIAMCINOLONE ACETONIDE 0.1% TOPICAL OINTMENT 15GM TUBE. TP PRN (09:45)
[2019-07-15] MEDS ORDERED: MAGNESIUM HYDROXIDE 2,400 MG/30 ML ORAL.SUSP. PO PRN (09:45)
[2019-07-15] MEDS ORDERED: HALOPERIDOL 0.5 MG TABLET. PO PRN (09:45)
[2019-07-15] MEDS ORDERED: CHOLECALCIFEROL (VITAMIN D3) 1,000 UNIT TABLET PO SCH (10:00)
[2019-07-15] MEDS ORDERED: FUROSEMIDE 20 MG TABLET PO SCH (10:00)
[2019-07-15] MEDS: OMEGA-3 FATTY ACIDS/FISH OIL 1,000 MG CAPSULE. PO SCH (10:11)
[2019-07-15] MEDS: MULTIVITAMIN with MINERAL TABLET. PO SCH (10:11)
[2019-07-15] MEDS: LISINOPRIL 20 MG TABLET PO SCH (10:11)
[2019-07-15] MEDS: MEMANTINE 10 MG TABLET. PO SCH (10:11)
[2019-07-15] MEDS: PANTOPRAZOLE 40 MG TABLET.DR. PO SCH (10:11)
[2019-07-15] MEDS: ISOSORBIDE MONONITRATE ER 30 MG TAB.ER.24H PO SCH (10:12)
[2019-07-15] MEDS: METOPROLOL SUCC 24HR ER 25 MG TAB.ER.24H. PO SCH (10:13)
[2019-07-15] MEDS: CHOLECALCIFEROL (VITAMIN D3) 1,000 UNIT TABLET PO SCH (10:13)
[2019-07-15] MEDS: POTASSIUM CHLORIDE 20 MEQ TABLET.ER. PO SCH (10:13)
[2019-07-15] MEDS: CITALOPRAM 10 MG TABLET. PO SCH (10:14)
[2019-07-15] MEDS ORDERED: guaiFENesin ORAL 200 MG/10 ML LIQUID. PO PRN (10:15)
--- NOTE | 2019-07-15 10:17 | PDOC1 ---
History and Physical Date of Admission Date of Admission DATE: 07/15/19 TIME: 10:11 Source Source: Chart review, Patient History of Present Illness History of Present Illness Ms. Jimenez, is a 74 year old female with history of CHF, COPD, A. 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 she can only say a few words at a time, weakness and dyspnea. had been obtuse for history in the ER, is pleasant and more agreeable this AM She states the home health nurse listened to her lungs and sent her to the ED for new rales and wheeze, she lives with her daughter who helps provide care Past Medical History Cardiovascular: AFIB, CHF, HTN, Hyperlipidemia, Other Pulmonary: COPD CENTRAL NERVOUS SYSTEM: Dementia GI: GERD Psych: Anxiety Musculoskeletal: Osteoarthritis Endocrine: Hypothyroidism Past Surgical History Past Surgical History: Appendectomy, Cholecystectomy, Hysterectomy Social History Smoke: Quit ALCOHOL: none Current Problem List Problem List Problems Medical Problems: (1) Acute respiratory failure Status: Acute Current Medications Current Medications Current Medications Albuterol/ Ipratropium (Duoneb) 3 ml 1X ONCE NEB Last administered on 07/14/19at 19:55; Start 07/14/19 at 18:30; Stop 07/14/19 at 18:31; Status DC Methylprednisolone Sodium Succinate (SOLU-Medrol 125MG VIAL) 125 mg 1X ONCE IV Last administered on 07/14/19at 19:12; Start 07/14/19 at 18:30; Stop 07/14/19 at 18:31; Status DC Levofloxacin/ Dextrose 100 ml @ 100 mls/hr 1X ONCE IV Last administered on 07/14/19at 22:04; Start 07/14/19 at 22:00; Stop 07/14/19 at 22:59; Status DC Ondansetron HCl (Zofran) 4 mg PRN Q8HRS PRN IV NAUSEA/VOMITING; Start 07/14/19 at 22:15; Stop 07/15/19 at 22:14 Albuterol/ Ipratropium (Duoneb) 3 ml RTQID NEB Last administered on 07/15/19at 08:15; Start 07/15/19 at 08:00; Stop 07/16/19 at 07:59 Benzonatate (Tessalon Perle) 100 mg [id number] PO Last administered on 07/15/19at 08:33; Start 07/15/19 at 02:00 Acetaminophen (Tylenol) 325 mg PRN Q6HRS PRN PO MILD PAIN / TEMP Last administered on 07/15/19at 02:45; Start 07/15/19 at 02:00 Acetaminophen (Tylenol) 650 mg PRN Q6HRS PRN PO MILD PAIN / TEMP; Start 07/15/19 at 02:00 Albuterol Sulfate (Ventolin Neb Soln) 2.5 mg PRN Q4HRS PRN NEB SHORTNESS OF BREATH; Start 07/15/19 at 05:30; Stop 07/15/19 at 08:27; Status DC Albuterol Sulfate (Ventolin Neb Soln) 2.5 mg PRN Q2HR PRN NEB SHORTNESS OF BREATH; Start 07/15/19 at 08:30; Status Cancel Albuterol Sulfate (Ventolin Neb Soln) 2.5 mg PRN Q6HRS PRN INH SHORTNESS OF BREATH; Start 07/15/19 at 09:45 Apixaban (Eliquis) 5 mg BID PO ; Start 07/15/19 at 21:00 Aspirin (Children'S Aspirin) 81 mg DAILY PO ; Start 07/16/19 at 09:00 Atorvastatin Calcium (Lipitor) 40 mg QHS PO ; Start 07/15/19 at 21:00 Diltiazem HCl (Cardizem 24hr Cd) 120 mg DAILY PO ; Start 07/15/19 at 10:00 Furosemide (Lasix) 10 mg DAILY PO ; Start 07/15/19 at 10:00 Haloperidol (Haldol) 1 mg PRN Q8HRS PRN PO AGITATION; Start 07/15/19 at 09:45 Haloperidol (Haldol) 2 mg HS PO ; Start 07/15/19 at 21:00 Isosorbide Mononitrate (Imdur) 30 mg DAILY PO ; Start 07/15/19 at 10:00 Levothyroxine Sodium (Synthroid) 88 mcg DAILY PO ; Start 07/16/19 at 09:00 Lisinopril (Prinivil) 20 mg DAILY PO ; Start 07/15/19 at 10:00 Magnesium Hydroxide (Milk Of Magnesia) 2,400 mg PRN DAILY PRN PO CONSTIPATION; Start 07/15/19 at 09:45 Memantine (Namenda) 10 mg DAILY PO ; Start 07/15/19 at 10:00 Metoprolol Succinate (Toprol Xl) 25 mg DAILY PO ; Start 07/15/19 at 10:00 Nitroglycerin (Nitrostat) 0.4 mg PRN Q5MIN PRN SL CHEST PAIN; Start 07/15/19 at 09:45 Potassium Chloride (Klor-Con) 20 meq DAILY PO ; Start 07/15/19 at 10:00 Triamcinolone Acetonide (Kenalog 0.1%) 1 mayank PRN BID PRN TP .; Start 07/15/19 at 09:45 Non-Formulary Medication (Alendronate Sodium (Fosamax)) 1 tab WEEKLY PO ; Start 07/22/19 at 09:00; Status UNV Vitamin D (Vitamin D3) 1,000 unit DAILY PO ; Start 07/15/19 at 10:00; Stop 07/15/19 at 09:57; Status DC Non-Formulary Medication (Escitalopram Oxalate ) 5 mg DAILY PO ; Start 07/16/19 at 09:00; Status UNV Non-Formulary Medication (Guaifenesin ) 400 mg PRN BID PO ; Start 07/15/19 at 09:45; Status UNV Multivitamins (Thera M Plus) 1 tab DAILY PO ; Start 07/15/19 at 10:00 Fish Oil (Fish Oil) 1,000 mg DAILY PO ; Start 07/15/19 at 10:00 Pantoprazole Sodium (Protonix) 40 mg DAILYAC PO ; Start 07/15/19 at 10:00 Non-Formulary Medication (Ubidecarenone (Coenzyme Q10)) 10 mg DAILY PO ; Start 07/16/19 at 09:00; Status UNV Non-Formulary Medication (Umeclidinium Brm/Vilanterol Tr (Anoro Ellipta 62.5-25 Mcg Inh)) 1 each DAILY IH ; Start 07/16/19 at 09:00; Status UNV Vitamin D (Vitamin D3) 2,000 unit DAILY PO ; Start 07/15/19 at 10:00 Active Scripts Active Haloperidol 0.5 Mg Tablet 1 Mg PO Q8H PRN 30 Days Haloperidol 2 Mg Tablet 2 Mg PO HS 30 Days Milk Of Magnesia (Magnesium Hydroxide) 400 Mg/5 Ml Oral.susp 2,400 Mg PO PRN DAILY PRN 14 Days Reported Escitalopram Oxalate 5 Mg Tablet 5 Mg PO DAILY Lisinopril 20 Mg Tablet 1 Tab PO DAILY Levothyroxine Sodium 88 Mcg Tablet 1 Tab PO DAILY Anoro Ellipta 62.5-25 Mcg Inh (Umeclidinium Brm/Vilanterol Tr) 1 Each Disk.w.dev 1 Each IH DAILY Triamcinolone Acetonide 0.1% Oint (Triamcinolone Acetonide) 15 Gm Oint...g. 1 Mayank TP PRN BID MIX WITH EUCERIN DIRECTED BY PHYSICIAN Proair Hfa Inhaler (Albuterol Sulfate) 8.5 Gm Hfa.aer.ad 2 Puff INH PRN Q6HRS PRN Potassium Chloride (Potassium Chloride) 20 Meq Tablet.er 20 Meq PO DAILY Protonix (Pantoprazole Sodium) 20 Mg Tablet.dr 40 Mg PO DAILY Fish Oil 1,000 mg Softgel (Beltrami-3/Dha/Epa/Fish Oil) 1,000 Mg Capsule 1,000 Mg PO DAILY NITROGLYCERIN SubLingual (Nitroglycerin) 0.4 Mg Tab.subl 0.4 Mg SL PRN Q5MIN PRN Multivitamins (Multivitamin) 1 Each Tablet 1 Tab PO DAILY Metoprolol Succinate ( Xl ) (Metoprolol Succinate) 25 Mg Tab.er.24h 25 Mg PO DAILY Namenda (Memantine Hcl) 10 Mg Tablet 10 Mg PO DAILY Isosorbide Mononitrate Er (Isosorbide Mononitrate) 30 Mg Tab.er.24h 30 Mg PO DAILY Guaifenesin 400 Mg Tablet 400 Mg PO PRN BID Lasix (Furosemide) 20 Mg Tablet 10 Mg PO DAILY Eliquis (Apixaban) 5 Mg Tablet 5 Mg PO BID Cardizem Cd (Diltiazem Hcl) 180 Mg Cap.er.24h 120 Mg PO DAILY Coenzyme Q10 (Ubidecarenone) 10 Mg Capsule 10 Mg PO DAILY Vitamin D (Cholecalciferol (Vitamin D3)) 2,000 Unit Capsule 1 Cap PO DAILY Lipitor (Atorvastatin Calcium) 40 Mg Tablet 1 Tab PO QHS Aspirin 81 Mg Tab.chew 1 Tab PO DAILY Fosamax (Alendronate Sodium) 70 Mg Tablet 1 Tab PO WEEKLY Allergies Allergies: Coded Allergies: morphine (Verified Allergy, Severe, facial swelling, 6/19/19) NSAIDS (Non-Steroidal Anti-Inflamma (Verified Allergy, Intermediate, 10/22/18) atropine (Verified Allergy, Intermediate, 10/22/18) bacitracin (Verified Allergy, Intermediate, 10/22/18) belladonna alkaloids (Verified Allergy, Intermediate, 10/22/18) diphenhydramine (Verified Allergy, Intermediate, 10/22/18) gramicidin D (Verified Allergy, Intermediate, 10/22/18) hyoscyamine (Verified Allergy, Intermediate, 10/22/18) ketorolac (Verified Allergy, Intermediate, 10/22/18) neomycin (Verified Allergy, Intermediate, 10/22/18) penicillin G (Verified Allergy, Intermediate, 10/22/18) penicillin V (Verified Allergy, Intermediate, 10/22/18) phenobarbital (Verified Allergy, Intermediate, 10/22/18) polymyxin B (Verified Allergy, Intermediate, 10/22/18) scopolamine (Verified Allergy, Intermediate, 10/22/18) nickel (Verified Allergy, Mild, severe itching, 10/22/18) silver (Verified Allergy, Mild, severe itching, 10/22/18) ROS General: YES: Fatigue, Malaise, Appetite PSYCHOLOGICAL ROS: YES: Concentration difficultie, Irritablity, Mood Swings, Sleep disturbances Eyes: No Blurry vision, No Decreased vision, No Double vision, No Dry eyes, No Excessive tearing, No Eye Pain, No Itchy Eyes, No Loss of vision, No Photophobia, No Scotomata, No Uses contacts, No Uses glasses, No Other HEENT: No: Heacaches, Visual Changes, Hearing change, Nasal congestion, Nasal discharge, Oral lesions, Sinus pain, Sore Throat, Epistaxis, Sneezing, Snoring, Tinnitus, Vertigo, Vocal changes, Other Respiratory: YES: Cough, Shortness of breath, SOB with excertion, Sputum Changes, Tachypnea, Wheezing Cardiovascular: No Chest Pain, No Palpitations, No Orthopnea, No Paroxysmal Noc. Dyspnea, No Edema, No Lt Headedness, No Other Gastrointestinal: Yes Nausea; No Vomiting, No Abdominal Pain, No Diarrhea, No Constipation, No Melena, No Hematochezia, No Other Genitourinary: No Dysuria, No Frequency, No Incontinence, No Hematuria, No Retention, No Discharge, No Urgency, No Pain, No Flank Pain, No Other, No , No , No , No , No , No , No Musculoskeletal: Yes Gait Disturbance, Yes Joint Pain, Yes Joint Stiffness, Yes Muscular Weakness; No Joint Swelling, No Muscle Pain, No Pain In:, No Swelling In:, No Other Neurological: Yes Gait Disturbance; No Behavorial Changes, No Bowel/Bladder ControlChng, No Confusion, No Dizziness, No Headaches, No Impaired Coord/balance, No Memory Loss, No Numbness/Tingling, No Seizures, No Speech Problems, No Tremors, No Visual Galeana es, No Weakness, No Other Skin: Yes Dry Skin, Yes Other; No Eczema, No Hair Changes, No Lumps, No Mole Changes, No Mottling, No Nail Changes, No Pruritus, No Rash, No Skin Lesion Changes, No Acne Physical Exam General: Alert, Oriented X3, Cooperative, mild distress HEENT: Atraumatic, PERRLA, EOMI Lungs: Other (wheeze, rales, poor volume, kyphotic) Heart: no murmurs Abdomen: Normal bowel sounds, Soft Extremities: No clubbing, Normal pulses Neuro: Normal speech, Normal tone, Cranial nerves 3-12 NL, Other (can only say a few words at a time) Psych/Mental Status: Mental status NL, Other (flat affect, mood seems low, she has complaints about her living condiition) Vitals Vitals Vital Signs Date Time Temp Pulse Resp B/P (MAP) Pulse Ox O2 Delivery O2 Flow Rate FiO2 07/15/19 08:16 97 Nasal Cannula 2.0 07/15/19 07:00 98.2 79 18 116/55 (75) 98.2 Labs Labs Laboratory Tests Test 07/14/19 18:27 07/14/19 19:05 07/15/19 03:30 White Blood Count 7.0 x10^3/uL (4.0-11.0) 5.5 x10^3/uL (4.0-11.0) Red Blood Count 3.72 x10^6/uL (3.50-5.40) 3.53 x10^6/uL (3.50-5.40) Hemoglobin 11.6 g/dL (12.0-15.5) 11.2 g/dL (12.0-15.5) Hematocrit 34.3 % (36.0-47.0) 32.6 % (36.0-47.0) Mean Corpuscular Volume 92 fL (79-100) 92 fL (79-100) Mean Corpuscular Hemoglobin 31 pg (25-35) 32 pg (25-35) Mean Corpuscular Hemoglobin Concent 34 g/dL (31-37) 34 g/dL (31-37) Red Cell Distribution Width 16.3 % (11.5-14.5) 15.6 % (11.5-14.5) Platelet Count 305 x10^3/uL (140-400) 287 x10^3/uL (140-400) Neutrophils (%) (Auto) 57 % (31-73) 85 % (31-73) Lymphocytes (%) (Auto) 25 % (24-48) 14 % (24-48) Monocytes (%) (Auto) 9 % (0-9) 1 % (0-9) Eosinophils (%) (Auto) 8 % (0-3) 0 % (0-3) Basophils (%) (Auto) 1 % (0-3) 0 % (0-3) Neutrophils # (Auto) 4.0 x10^3/uL (1.8-7.7) 4.7 x10^3/uL (1.8-7.7) Lymphocytes # (Auto) 1.8 x10^3/uL (1.0-4.8) 0.7 x10^3/uL (1.0-4.8) Monocytes # (Auto) 0.6 x10^3/uL (0.0-1.1) 0.1 x10^3/uL (0.0-1.1) Eosinophils # (Auto) 0.6 x10^3/uL (0.0-0.7) 0.0 x10^3/uL (0.0-0.7) Basophils # (Auto) 0.0 x10^3/uL (0.0-0.2) 0.0 x10^3/uL (0.0-0.2) Sodium Level 143 mmol/L (136-145) 141 mmol/L (136-145) Potassium Level 3.9 mmol/L (3.5-5.1) 4.4 mmol/L (3.5-5.1) Chloride Level 105 mmol/L (98-107) 104 mmol/L (98-107) Carbon Dioxide Level 33 mmol/L (21-32) 29 mmol/L (21-32) Anion Gap 5 (6-14) 8 (6-14) Blood Urea Nitrogen 17 mg/dL (7-20) 19 mg/dL (7-20) Creatinine 0.9 mg/dL (0.6-1.0) 1.1 mg/dL (0.6-1.0) Estimated GFR (Cockcroft-Gault) 61.2 48.6 BUN/Creatinine Ratio 19 (6-20) Glucose Level 126 mg/dL (70-99) 205 mg/dL (70-99) Lactic Acid Level 1.2 mmol/L (0.4-2.0) Calcium Level 9.2 mg/dL (8.5-10.1) 8.9 mg/dL (8.5-10.1) Magnesium Level 2.1 mg/dL (1.8-2.4) Total Bilirubin 0.4 mg/dL (0.2-1.0) Aspartate Amino Transf (AST/SGOT) 22 U/L (15-37) Alanine Aminotransferase (ALT/SGPT) 22 U/L (14-59) Alkaline Phosphatase 76 U/L (46-116) Creatine Kinase 112 U/L (26-192) Creatine Kinase MB (Mass) 2.3 ng/mL (0.0-3.6) Creatine Kinase MB Relative Index 2.1 % (0-4) Troponin I Quantitative < 0.017 ng/mL (0.000-0.055) MX-Dss-W-Type Natriuretic Peptide 846 pg/mL (0-124) Total Protein 6.8 g/dL (6.4-8.2) Albumin 3.8 g/dL (3.4-5.0) Albumin/Globulin Ratio 1.3 (1.0-1.7) Procalcitonin < 0.10 ng/mL (0.00-0.10) Thyroid Stimulating Hormone (TSH) 1.770 uIU/mL (0.358-3.74) Influenza Type A Antigen Negative (NEGATIVE) Influenza Type B Antigen Negative (NEGATIVE) Laboratory Tests Test 07/14/19 18:27 07/14/19 19:05 07/15/19 03:30 White Blood Count 7.0 x10^3/uL (4.0-11.0) 5.5 x10^3/uL (4.0-11.0) Red Blood Count 3.72 x10^6/uL (3.50-5.40) 3.53 x10^6/uL (3.50-5.40) Hemoglobin 11.6 g/dL (12.0-15.5) 11.2 g/dL (12.0-15.5) Hematocrit 34.3 % (36.0-47.0) 32.6 % (36.0-47.0) Mean Corpuscular Volume 92 fL (79-100) 92 fL (79-100) Mean Corpuscular Hemoglobin 31 pg (25-35) 32 pg (25-35) Mean Corpuscular Hemoglobin Concent 34 g/dL (31-37) 34 g/dL (31-37) Red Cell Distribution Width 16.3 % (11.5-14.5) 15.6 % (11.5-14.5) Platelet Count 305 x10^3/uL (140-400) 287 x10^3/uL (140-400) Neutrophils (%) (Auto) 57 % (31-73) 85 % (31-73) Lymphocytes (%) (Auto) 25 % (24-48) 14 % (24-48) Monocytes (%) (Auto) 9 % (0-9) 1 % (0-9) Eosinophils (%) (Auto) 8 % (0-3) 0 % (0-3) Basophils (%) (Auto) 1 % (0-3) 0 % (0-3) Neutrophils # (Auto) 4.0 x10^3/uL (1.8-7.7) 4.7 x10^3/uL (1.8-7.7) Lymphocytes # (Auto) 1.8 x10^3/uL (1.0-4.8) 0.7 x10^3/uL (1.0-4.8) Monocytes # (Auto) 0.6 x10^3/uL (0.0-1.1) 0.1 x10^3/uL (0.0-1.1) Eosinophils # (Auto) 0.6 x10^3/uL (0.0-0.7) 0.0 x10^3/uL (0.0-0.7) Basophils # (Auto) 0.0 x10^3/uL (0.0-0.2) 0.0 x10^3/uL (0.0-0.2) Sodium Level 143 mmol/L (136-145) 141 mmol/L (136-145) Potassium Level 3.9 mmol/L (3.5-5.1) 4.4 mmol/L (3.5-5.1) Chloride Level 105 mmol/L (98-107) 104 mmol/L (98-107) Carbon Dioxide Level 33 mmol/L (21-32) 29 mmol/L (21-32) Anion Gap 5 (6-14) 8 (6-14) Blood Urea Nitrogen 17 mg/dL (7-20) 19 mg/dL (7-20) Creatinine 0.9 mg/dL (0.6-1.0) 1.1 mg/dL (0.6-1.0) Estimated GFR (Cockcroft-Gault) 61.2 48.6 BUN/Creatinine Ratio 19 (6-20) Glucose Level 126 mg/dL (70-99) 205 mg/dL (70-99) Lactic Acid Level 1.2 mmol/L (0.4-2.0) Calcium Level 9.2 mg/dL (8.5-10.1) 8.9 mg/dL (8.5-10.1) Magnesium Level 2.1 mg/dL (1.8-2.4) Total Bilirubin 0.4 mg/dL (0.2-1.0) Aspartate Amino Transf (AST/SGOT) 22 U/L (15-37) Alanine Aminotransferase (ALT/SGPT) 22 U/L (14-59) Alkaline Phosphatase 76 U/L (46-116) Creatine Kinase 112 U/L (26-192) Creatine Kinase MB (Mass) 2.3 ng/mL (0.0-3.6) Creatine Kinase MB Relative Index 2.1 % (0-4) Troponin I Quantitative < 0.017 ng/mL (0.000-0.055) IR-Hmm-H-Type Natriuretic Peptide 846 pg/mL (0-124) Total Protein 6.8 g/dL (6.4-8.2) Albumin 3.8 g/dL (3.4-5.0) Albumin/Globulin Ratio 1.3 (1.0-1.7) Procalcitonin < 0.10 ng/mL (0.00-0.10) Thyroid Stimulating Hormone (TSH) 1.770 uIU/mL (0.358-3.74) Influenza Type A Antigen Negative (NEGATIVE) Influenza Type B Antigen Negative (NEGATIVE) VTE Prophylaxis Ordered VTE Prophylaxis Devices: No VTE Pharmacological Prophylaxi: Yes Assessment/Plan Assessment/Plan acute on chronic hypoxic and hypercarbic respiratory failure COPD with acute bronchitis, steroids, nebs, levaquin, consult pulm CHF, acute on chronic diastolic, with mult HTN, meds, on imdur, consult CV, performance status likely poor at basline weakness debility, pt and ot ISADORA Silva MD Jul 15, 2019 10:16
[2019-07-15 11:00] VITALS: BP 131/57
[2019-07-15] MEDS: IPRATRPIUM/ALBUTEROL 0.5/2.5MG 3 ML NEBU. NEB SCH ×3 (11:00→20:18)
--- NOTE | 2019-07-15 11:48 | CONS ---
DATE OF CONSULTATION: PULMONARY CONSULTATION ATTENDING PHYSICIAN: Dr. Gao. REASON FOR CONSULTATION: Dyspnea. HISTORY OF PRESENT ILLNESS: The patient is a 74-year-old who has a long history of tobacco use and underlying COPD. She also has an AFib and CHF. She presented to the hospital with a cough, which has been nonproductive. Dyspnea and some wheezing. She has some weakness as well. No headaches, no nausea or vomiting, no diarrhea, no dysuria. No focal weakness. Her chest x-ray did not reveal any acute infiltrate. The patient is currently requiring oxygen at 2 L. She normally does not wear oxygen. PAST MEDICAL HISTORY: Significant for AFib, COPD, CHF, hypertension, hyperlipidemia, dementia, osteoarthritis, and hypothyroidism. PAST SURGICAL HISTORY: Appendectomy, cholecystectomy, and hysterectomy. SOCIAL HISTORY: She had smoked for at least 35-40 years before quitting. ALLERGIES: Multiple and they were all reviewed as listed in the MRAD. MEDICATIONS: Reviewed as listed in the MRAD including DuoNebs. REVIEW OF SYSTEMS: Twelve-point systems obtained. Pertinent positives discussed in my history of present illness, otherwise noncontributory. All systems that were negative were reviewed as well. PHYSICAL EXAMINATION: VITAL SIGNS: Reviewed, afebrile, pulse ox 97% on 2 L. NECK: Supple. LUNGS: With few rhonchi and wheezes. CARDIOVASCULAR: With a regular rate and rhythm. ABDOMEN: Soft. EXTREMITIES: With no pitting edema. LABORATORY DATA: Reviewed. Influenza screen is negative. White cell count 5.5, hemoglobin 11.2, and platelets are 287. IMPRESSION: 1. Acute hypoxic respiratory failure secondary to acute exacerbation of chronic obstructive pulmonary disease and acute bronchitis. 2. No definite consolidation seen on the chest x-ray. 3. Long history of tobacco use. 4. Influenza screen negative and afebrile. RECOMMENDATIONS: 1. We will continue with present oxygen and keep saturation 92 and above. 2. DuoNebs. 3. Continue Levaquin. 4. Continue her home medications. 5. Anticipate hospitalization 24-48 hours. AYESHA BURT MD DR: OSCAR/yossi JOB#: [id number] / [id number]
--- NOTE | 2019-07-15 11:51 | PDOC2 ---
BRADLY VALENTINO BREAST BUFFER 07/15/19 1151: CARDIAC CONSULT DATE OF CONSULT Date of Consult DATE: 07/15/19 TIME: 11:36 REASON FOR CONSULT Reason for Consult: CHF REFERRING PHYSICIAN Referring Physician: Asif SOURCE Source: Chart review, Patient HISTORY OF PRESENT ILLNESS HISTORY OF PRESENT ILLNESS This is a pleasant 74 yo female admitted for complains of SOA. Reports that in the last few days, she has been coughing more with whitish sputum coming out sometimes. No fever or chills but at times feeling wheezy and had more RUBIN. She has been using more breathing treatments more than usual. She typically uses O2 at 2L. Her mobility is limited. No frequnet dizziness, no passing out. No recent injury falls. Denies any chest pain, or palpitations. She is compliant with her medications and actually take very low dose lasix at home. Positive for hx of diastolic CHF, PAFIB and COPD. To add, reports that she lives with her daughter and does not want to live with her daughter anymore claiming emotional/psychological issues, denies any physical abuse. Denies being depressed. Presently her SOA is better. PAST MEDICAL HISTORY Cardiovascular: AFIB, CHF, HTN, Hyperlipidemia, Other (PAD) Pulmonary: COPD GI: Other (umbilical hernia, enterocutaneous fistula) Heme/Onc: Other (chronic eliquis therapy) Hepatobiliary: Cholelithiasis Musculoskeletal: Osteoarthritis Endocrine: Hypothyroidism, Osteoporosis Dermatology: Other (coccyx wound) PAST SURGICAL HISTORY Past Surgical History: Appendectomy, Cholecystectomy, Hysterectomy, Other (RCEA) FAMILY HISTORY Family History noncontributory SOCIAL HISTORY Smoke: Quit ALCOHOL: none Lives: with Family (daughter) CURRENT MEDICATIONS CURRENT MEDICATIONS Current Medications Medications (Trade) Dose Ordered Sig/Denise Route PRN Reason Start Time Stop Time Status Last Admin Dose Admin Albuterol/ Ipratropium (Duoneb) 3 ml 1X ONCE NEB 07/14/19 18:30 07/14/19 18:31 DC 07/14/19 19:55 Methylprednisolone Sodium Succinate (SOLU-Medrol 125MG VIAL) 125 mg 1X ONCE IV 07/14/19 18:30 07/14/19 18:31 DC 07/14/19 19:12 Levofloxacin/ Dextrose 100 ml @ 100 mls/hr 1X ONCE IV 07/14/19 22:00 07/14/19 22:59 DC 07/14/19 22:04 Albuterol/ Ipratropium (Duoneb) 3 ml RTQID NEB 07/15/19 08:00 07/15/19 10:14 DC 07/15/19 08:15 Benzonatate (Tessalon Perle) 100 mg CFQ284 PO 07/15/19 02:00 07/15/19 08:33 Acetaminophen (Tylenol) 325 mg PRN Q6HRS PRN PO MILD PAIN / TEMP 07/15/19 02:00 07/15/19 02:45 Diltiazem HCl (Cardizem 24hr Cd) 120 mg DAILY PO 07/15/19 10:00 07/15/19 10:12 Furosemide (Lasix) 10 mg DAILY PO 07/15/19 10:00 07/15/19 10:12 Isosorbide Mononitrate (Imdur) 30 mg DAILY PO 07/15/19 10:00 07/15/19 10:12 Lisinopril (Prinivil) 20 mg DAILY PO 07/15/19 10:00 07/15/19 10:11 Memantine (Namenda) 10 mg DAILY PO 07/15/19 10:00 07/15/19 10:11 Metoprolol Succinate (Toprol Xl) 25 mg DAILY PO 07/15/19 10:00 07/15/19 10:13 Potassium Chloride (Klor-Con) 20 meq DAILY PO 07/15/19 10:00 07/15/19 10:13 Multivitamins (Thera M Plus) 1 tab DAILY PO 07/15/19 10:00 07/15/19 10:11 Fish Oil (Fish Oil) 1,000 mg DAILY PO 07/15/19 10:00 07/15/19 10:11 Pantoprazole Sodium (Protonix) 40 mg DAILYAC PO 07/15/19 10:00 07/15/19 10:11 Albuterol/ Ipratropium (Duoneb) 3 ml RTQID NEB 07/15/19 12:00 07/15/19 11:00 Vitamin D (Vitamin D3) 2,000 unit DAILY PO 07/15/19 10:00 07/15/19 10:13 ALLERGIES ALLERGIES: Coded Allergies: morphine (Verified Allergy, Severe, facial swelling, 10/22/18) NSAIDS (Non-Steroidal Anti-Inflamma (Verified Allergy, Intermediate, 10/22/18) atropine (Verified Allergy, Intermediate, 10/22/18) bacitracin (Verified Allergy, Intermediate, 10/22/18) belladonna alkaloids (Verified Allergy, Intermediate, 10/22/18) diphenhydramine (Verified Allergy, Intermediate, 10/22/18) gramicidin D (Verified Allergy, Intermediate, 10/22/18) hyoscyamine (Verified Allergy, Intermediate, 10/22/18) ketorolac (Verified Allergy, Intermediate, 10/22/18) neomycin (Verified Allergy, Intermediate, 10/22/18) penicillin G (Verified Allergy, Intermediate, 10/22/18) penicillin V (Verified Allergy, Intermediate, 10/22/18) phenobarbital (Verified Allergy, Intermediate, 10/22/18) polymyxin B (Verified Allergy, Intermediate, 10/22/18) scopolamine (Verified Allergy, Intermediate, 10/22/18) nickel (Verified Allergy, Mild, severe itching, 10/22/18) silver (Verified Allergy, Mild, severe itching, 10/22/18) ROS Review of System 14 point ROS evaluated with pertinent positives noted per HPI PHYSICAL EXAM General: Alert, Oriented X3, Cooperative, No acute distress HEENT: Atraumatic, Mucous membr. moist/pink Heart: Regular rate, Normal S1, Normal S2, Other (3/6 systolic murmur to TRACIE border) Abdomen: Soft, No tenderness Extremities: Other (1-2+ bilateral LE pitting edema) Skin: No breakdown, No significant lesion Neuro: Normal speech, Sensation intact Psych/Mental Status: Mental status NL, Other (anxious) MUSCULOSKELETAL: Osteoarthritic changes both hands VITALS/I&O VITALS/I&O: Vital Signs Date Time Temp Pulse Resp B/P (MAP) Pulse Ox O2 Delivery O2 Flow Rate FiO2 07/15/19 11:00 97 Nasal Cannula 2.0 07/15/19 10:13 79 116/55 07/15/19 07:00 98.2 18 98.2 I & O 07/14/19 07/14/19 07/15/19 15:00 23:00 07:00 Intake Total 200 ml Balance 200 ml LABS Lab: Laboratory Tests Test 07/14/19 18:27 07/14/19 19:05 07/15/19 03:30 White Blood Count 7.0 x10^3/uL (4.0-11.0) 5.5 x10^3/uL (4.0-11.0) Red Blood Count 3.72 x10^6/uL (3.50-5.40) 3.53 x10^6/uL (3.50-5.40) Hemoglobin 11.6 g/dL (12.0-15.5) L 11.2 g/dL (12.0-15.5) L Hematocrit 34.3 % (36.0-47.0) L 32.6 % (36.0-47.0) L Mean Corpuscular Volume 92 fL (79-100) 92 fL (79-100) Mean Corpuscular Hemoglobin 31 pg (25-35) 32 pg (25-35) Mean Corpuscular Hemoglobin Concent 34 g/dL (31-37) 34 g/dL (31-37) Red Cell Distribution Width 16.3 % (11.5-14.5) H 15.6 % (11.5-14.5) H Platelet Count 305 x10^3/uL (140-400) 287 x10^3/uL (140-400) Neutrophils (%) (Auto) 57 % (31-73) 85 % (31-73) H Lymphocytes (%) (Auto) 25 % (24-48) 14 % (24-48) L Monocytes (%) (Auto) 9 % (0-9) 1 % (0-9) Eosinophils (%) (Auto) 8 % (0-3) H 0 % (0-3) Basophils (%) (Auto) 1 % (0-3) 0 % (0-3) Neutrophils # (Auto) 4.0 x10^3/uL (1.8-7.7) 4.7 x10^3/uL (1.8-7.7) Lymphocytes # (Auto) 1.8 x10^3/uL (1.0-4.8) 0.7 x10^3/uL (1.0-4.8) L Monocytes # (Auto) 0.6 x10^3/uL (0.0-1.1) 0.1 x10^3/uL (0.0-1.1) Eosinophils # (Auto) 0.6 x10^3/uL (0.0-0.7) 0.0 x10^3/uL (0.0-0.7) Basophils # (Auto) 0.0 x10^3/uL (0.0-0.2) 0.0 x10^3/uL (0.0-0.2) Sodium Level 143 mmol/L (136-145) 141 mmol/L (136-145) Potassium Level 3.9 mmol/L (3.5-5.1) 4.4 mmol/L (3.5-5.1) Chloride Level 105 mmol/L (98-107) 104 mmol/L (98-107) Carbon Dioxide Level 33 mmol/L (21-32) H 29 mmol/L (21-32) Anion Gap 5 (6-14) L 8 (6-14) Blood Urea Nitrogen 17 mg/dL (7-20) 19 mg/dL (7-20) Creatinine 0.9 mg/dL (0.6-1.0) 1.1 mg/dL (0.6-1.0) H Estimated GFR (Cockcroft-Gault) 61.2 48.6 BUN/Creatinine Ratio 19 (6-20) Glucose Level 126 mg/dL (70-99) H 205 mg/dL (70-99) H Lactic Acid Level 1.2 mmol/L (0.4-2.0) Calcium Level 9.2 mg/dL (8.5-10.1) 8.9 mg/dL (8.5-10.1) Magnesium Level 2.1 mg/dL (1.8-2.4) Total Bilirubin 0.4 mg/dL (0.2-1.0) Aspartate Amino Transferase (AST) 22 U/L (15-37) Alanine Aminotransferase (ALT) 22 U/L (14-59) Alkaline Phosphatase 76 U/L (46-116) Creatine Kinase 112 U/L (26-192) Creatine Kinase MB (Mass) 2.3 ng/mL (0.0-3.6) Creatine Kinase MB Relative Index 2.1 % (0-4) Troponin I Quantitative < 0.017 ng/mL (0.000-0.055) [id number]-[id number]-Type Natriuretic Peptide 846 pg/mL (0-124) H Total Protein 6.8 g/dL (6.4-8.2) Albumin 3.8 g/dL (3.4-5.0) Albumin/Globulin Ratio 1.3 (1.0-1.7) Procalcitonin < 0.10 ng/mL (0.00-0.10) Thyroid Stimulating Hormone (TSH) 1.770 uIU/mL (0.358-3.74) Influenza Type A Antigen Negative (NEGATIVE) Influenza Type B Antigen Negative (NEGATIVE) Laboratory Tests 07/14/19 18:27 07/15/19 03:30 Laboratory Tests 07/14/19 18:27 07/15/19 03:30 ECHOCARDIOGRAM ECHOCARDIOGRAM <Conclusion> The left ventricular systolic function is normal and the ejection fraction is within normal range. The Ejection Fraction is 50-55%. There is normal LV segmental wall motion. Doppler and Color Flow revealed trace tricuspid regurgitation with an estimated PAP of 41 mmHg. There is mild pulmonary hypertension. Doppler and Color Flow revealed mild pulmonic valvular regurgitation. DATE: 07/11/18 1229 ASSESSMENT/PLAN ASSESSMENT/PLAN 1. AECOPD 2. Acute on chronic diastolic CHF: likely induced by above 3. PAFIB: SR per EKG 4. HTN: controlled 5. HLP 6. Hypothyrodism: on replacement 7. Dementia 8. Hx of carotid artery disease with 07/2018 RCEA 9. Anxiety Recommendations 1. Caution with QT prolonging agents with noted levaquin, haldol and celexa 2. Continue home eliquis/diltiazem and metoprolol 3. Continue home lasix. IV lasix x1 today. Strict I & O. 4. Continue home statin. 5. OT/PT eval and treat. SS consult citing does not want to live with daughter anymore due to emotional/psychological issues. JONATHON TARIQ MD 07/15/19 2216: CARDIAC CONSULT ASSESSMENT/PLAN ASSESSMENT/PLAN Pt. seen and examined. Agree with above PLANNING SPECIALIST note. Supportive care. BRADLY VALENTINO APRN Jul 15, 2019 11:51 JONATHON TARIQ MD Jul 15, 2019 22:16
[2019-07-15] MEDS ORDERED: FUROSEMIDE 20 MG/2 ML VIAL. IVP ONE ×2 (12:15→12:30)
--- NOTE | 2019-07-15 14:35 | NUR ---
Wound Care: Consult to eval and treat for "draining abdominal wound". 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 Cleansed and patted dry, applied aquacel AG and foam dressing. Coccyx reddened but blanchable. Turned to R side with wedge, heels floated on pillows. On P500 bed. No other open areas noted on head to toe inspection. Follow up 07/22/2019
[2019-07-15 15:00] VITALS: BP 104/47
[2019-07-15 18:59] VITALS: BP 138/60
[2019-07-15] MEDS: ATORVASTATIN CALCIUM 40 MG TABLET. PO SCH (20:34)
[2019-07-15] MEDS: LACTOBACILLUS RHAMNOSUS GG 1 CAPSULE. PO SCH (20:34)
[2019-07-15] MEDS: APIXABAN 5 MG TABLET. PO SCH (20:35)
[2019-07-15] MEDS: HALOPERIDOL 2 MG TABLET. PO SCH (20:35)
--- NOTE | 2019-07-15 21:33 | NUR ---
CALLED TO GIVE PATIENT BREATHING TREATMENT TO PATIENT AT 2132. RN INFORMED THAT PT GOT DUONEB AT 2018. AT THE TIME NEB WAS GIVEN, PT WAS IN NO DISTRESS, PT DID SEEM ANXIOUS. VENTOLIN PRN WILL BE GIVEN DEVI IF P IS IN DISTRESS, AFTER REASSESSMENT
[2019-07-15 22:34] VITALS: BP 104/44
[2019-07-16 03:00] VITALS: BP 119/54
[2019-07-16 07:00] VITALS: BP 123/64
[2019-07-16] MEDS: IPRATRPIUM/ALBUTEROL 0.5/2.5MG 3 ML NEBU. NEB SCH ×4 (07:59→20:06)
[2019-07-16] MEDS: CITALOPRAM 10 MG TABLET. PO SCH (08:35)
[2019-07-16] MEDS: OMEGA-3 FATTY ACIDS/FISH OIL 1,000 MG CAPSULE. PO SCH (08:53)
[2019-07-16] MEDS: ISOSORBIDE MONONITRATE ER 30 MG TAB.ER.24H PO SCH (08:53)
[2019-07-16] MEDS: PANTOPRAZOLE 40 MG TABLET.DR. PO SCH (08:54)
[2019-07-16] MEDS: CHOLECALCIFEROL (VITAMIN D3) 1,000 UNIT TABLET PO SCH (08:54)
[2019-07-16] MEDS: FUROSEMIDE 20 MG TABLET PO SCH (08:54)
[2019-07-16] MEDS: LEVOTHYROXINE 88 MCG TABLET PO SCH (08:54)
[2019-07-16] MEDS: APIXABAN 5 MG TABLET. PO SCH ×2 (08:54→19:43)
[2019-07-16] MEDS: MULTIVITAMIN with MINERAL TABLET. PO SCH (08:54)
[2019-07-16] MEDS: ASPIRIN CHEWABLE 81 MG TABLET. PO SCH (08:54)
[2019-07-16] MEDS: BENZONATATE 100 MG CAPSULE. PO SCH ×3 (08:54→19:43)
[2019-07-16] MEDS: MEMANTINE 10 MG TABLET. PO SCH (08:54)
[2019-07-16] MEDS: LACTOBACILLUS RHAMNOSUS GG 1 CAPSULE. PO SCH ×2 (08:54→19:43)
[2019-07-16] MEDS: METOPROLOL SUCC 24HR ER 25 MG TAB.ER.24H. PO SCH (08:55)
[2019-07-16] MEDS: POTASSIUM CHLORIDE 20 MEQ TABLET.ER. PO SCH (08:55)
[2019-07-16] MEDS: LISINOPRIL 20 MG TABLET PO SCH (08:55)
[2019-07-16] MEDS ORDERED: UBIDECARENONE 10 MG PO SCH (09:00)
[2019-07-16 11:00] VITALS: BP 127/57
--- NOTE | 2019-07-16 11:39 | PDOC ---
PULMONARY PROGRESS NOTES Subjective less soa/cough Vitals Vital Signs Date Time Temp Pulse Resp B/P (MAP) Pulse Ox O2 Delivery O2 Flow Rate FiO2 07/16/19 11:04 90 Nasal Cannula 3.0 07/16/19 11:00 97.7 102 16 127/57 (80) 97.7 General: Alert, No acute distress Lungs: Clear Cardiovascular: S1, S2 Abdomen: Soft, Non-tender Extremities: No Edema Labs Laboratory Tests Test 07/14/19 18:27 07/14/19 19:05 07/15/19 03:30 White Blood Count 7.0 x10^3/uL (4.0-11.0) 5.5 x10^3/uL (4.0-11.0) Red Blood Count 3.72 x10^6/uL (3.50-5.40) 3.53 x10^6/uL (3.50-5.40) Hemoglobin 11.6 g/dL (12.0-15.5) 11.2 g/dL (12.0-15.5) Hematocrit 34.3 % (36.0-47.0) 32.6 % (36.0-47.0) Mean Corpuscular Volume 92 fL (79-100) 92 fL (79-100) Mean Corpuscular Hemoglobin 31 pg (25-35) 32 pg (25-35) Mean Corpuscular Hemoglobin Concent 34 g/dL (31-37) 34 g/dL (31-37) Red Cell Distribution Width 16.3 % (11.5-14.5) 15.6 % (11.5-14.5) Platelet Count 305 x10^3/uL (140-400) 287 x10^3/uL (140-400) Neutrophils (%) (Auto) 57 % (31-73) 85 % (31-73) Lymphocytes (%) (Auto) 25 % (24-48) 14 % (24-48) Monocytes (%) (Auto) 9 % (0-9) 1 % (0-9) Eosinophils (%) (Auto) 8 % (0-3) 0 % (0-3) Basophils (%) (Auto) 1 % (0-3) 0 % (0-3) Neutrophils # (Auto) 4.0 x10^3/uL (1.8-7.7) 4.7 x10^3/uL (1.8-7.7) Lymphocytes # (Auto) 1.8 x10^3/uL (1.0-4.8) 0.7 x10^3/uL (1.0-4.8) Monocytes # (Auto) 0.6 x10^3/uL (0.0-1.1) 0.1 x10^3/uL (0.0-1.1) Eosinophils # (Auto) 0.6 x10^3/uL (0.0-0.7) 0.0 x10^3/uL (0.0-0.7) Basophils # (Auto) 0.0 x10^3/uL (0.0-0.2) 0.0 x10^3/uL (0.0-0.2) Sodium Level 143 mmol/L (136-145) 141 mmol/L (136-145) Potassium Level 3.9 mmol/L (3.5-5.1) 4.4 mmol/L (3.5-5.1) Chloride Level 105 mmol/L (98-107) 104 mmol/L (98-107) Carbon Dioxide Level 33 mmol/L (21-32) 29 mmol/L (21-32) Anion Gap 5 (6-14) 8 (6-14) Blood Urea Nitrogen 17 mg/dL (7-20) 19 mg/dL (7-20) Creatinine 0.9 mg/dL (0.6-1.0) 1.1 mg/dL (0.6-1.0) Estimated GFR (Cockcroft-Gault) 61.2 48.6 BUN/Creatinine Ratio 19 (6-20) Glucose Level 126 mg/dL (70-99) 205 mg/dL (70-99) Lactic Acid Level 1.2 mmol/L (0.4-2.0) Calcium Level 9.2 mg/dL (8.5-10.1) 8.9 mg/dL (8.5-10.1) Magnesium Level 2.1 mg/dL (1.8-2.4) Total Bilirubin 0.4 mg/dL (0.2-1.0) Aspartate Amino Transf (AST/SGOT) 22 U/L (15-37) Alanine Aminotransferase (ALT/SGPT) 22 U/L (14-59) Alkaline Phosphatase 76 U/L (46-116) Creatine Kinase 112 U/L (26-192) Creatine Kinase MB (Mass) 2.3 ng/mL (0.0-3.6) Creatine Kinase MB Relative Index 2.1 % (0-4) Troponin I Quantitative < 0.017 ng/mL (0.000-0.055) LZ-Agk-U-Type Natriuretic Peptide 846 pg/mL (0-124) Total Protein 6.8 g/dL (6.4-8.2) Albumin 3.8 g/dL (3.4-5.0) Albumin/Globulin Ratio 1.3 (1.0-1.7) Procalcitonin < 0.10 ng/mL (0.00-0.10) Thyroid Stimulating Hormone (TSH) 1.770 uIU/mL (0.358-3.74) Influenza Type A Antigen Negative (NEGATIVE) Influenza Type B Antigen Negative (NEGATIVE) Medications Active Scripts Medications Dose Route/Sig Max Daily Dose Days Date Category Dose Instructions Haloperidol 0.5 Mg Tablet 1 Mg PO Q8H PRN 30 05/15/19 Rx Haloperidol 2 Mg Tablet 2 Mg PO HS 30 05/15/19 Rx Escitalopram Oxalate 5 Mg Tablet 5 Mg PO DAILY 05/05/19 Reported Lisinopril 20 Mg Tablet 1 Tab PO DAILY 05/04/19 Reported Levothyroxine Sodium 88 Mcg Tablet 1 Tab PO DAILY 09/20/18 Reported Milk Of Magnesia (Magnesium Hydroxide) 400 Mg/5 Ml Oral.susp 2,400 Mg PO PRN DAILY PRN 14 07/20/18 Rx Anoro Ellipta 62.5-25 Mcg Inh (Umeclidinium Brm/Vilanterol Tr) 1 Each Disk.w.dev 1 Each IH DAILY 07/10/18 Reported Triamcinolone Acetonide 0.1% Oint (Triamcinolone Acetonide) 15 Gm Oint...g. 1 [place] TP PRN BID 07/10/18 Reported MIX WITH EUCERIN DIRECTED BY PHYSICIAN Proair Hfa Inhaler (Albuterol Sulfate) 8.5 Gm Hfa.aer.ad 2 Puff INH PRN Q6HRS PRN 07/10/18 Reported Potassium Chloride (Potassium Chloride) 20 Meq Tablet.er 20 Meq PO DAILY 07/10/18 Reported Protonix (Pantoprazole Sodium) 20 Mg Tablet.dr 40 Mg PO DAILY 07/10/18 Reported Fish Oil 1,000 mg Softgel ([place]-3/Dha/Epa/Fish Oil) 1,000 Mg Capsule 1,000 Mg PO DAILY 07/10/18 Reported NITROGLYCERIN SubLingual (Nitroglycerin) 0.4 Mg Tab.subl 0.4 Mg SL PRN Q5MIN PRN 07/10/18 Reported Multivitamins (Multivitamin) 1 Each Tablet 1 Tab PO DAILY 07/10/18 Reported Metoprolol Succinate ( Xl ) (Metoprolol Succinate) 25 Mg Tab.er.24h 25 Mg PO DAILY 07/10/18 Reported Namenda (Memantine Hcl) 10 Mg Tablet 10 Mg PO DAILY 07/10/18 Reported Isosorbide Mononitrate Er (Isosorbide Mononitrate) 30 Mg Tab.er.24h 30 Mg PO DAILY 07/10/18 Reported Guaifenesin 400 Mg Tablet 400 Mg PO PRN BID 07/10/18 Reported Lasix (Furosemide) 20 Mg Tablet 10 Mg PO DAILY 07/10/18 Reported Eliquis (Apixaban) 5 Mg Tablet 5 Mg PO BID 07/10/18 Reported Cardizem Cd (Diltiazem Hcl) 180 Mg Cap.er.24h 120 Mg PO DAILY 07/10/18 Reported Coenzyme Q10 (Ubidecarenone) 10 Mg Capsule 10 Mg PO DAILY 07/10/18 Reported Vitamin D (Cholecalciferol (Vitamin D3)) 2,000 Unit Capsule 1 Cap PO DAILY 07/10/18 Reported Lipitor (Atorvastatin Calcium) 40 Mg Tablet 1 Tab PO QHS 07/10/18 Reported Aspirin 81 Mg Tab.chew 1 Tab PO DAILY 07/10/18 Reported Fosamax (Alendronate Sodium) 70 Mg Tablet 1 Tab PO WEEKLY 07/10/18 Reported Impression . 1. Acute hypoxic respiratory failure secondary to acute exacerbation of chronic obstructive pulmonary disease and acute bronchitis. 2. No definite consolidation seen on the chest x-ray. 3. Long history of tobacco use. 4. Influenza screen negative and afebrile. Plan . 1. We will continue with present oxygen and keep saturation 92 and above. 2. DuoNebs. 3. Continue Levaquin. 4. Continue her home medications. 5. Anticipate hospitalization 24 hours. AYESHA BURT MD Jul 16, 2019 11:39
--- NOTE | 2019-07-16 12:13 | PDOC ---
PROGRESS NOTES Chief Complaint Chief Complaint acute on chronic hypoxic and hypercarbic respiratory failure COPD with acute bronchitis, steroids, nebs, levaquin, consult pulm CHF, acute on chronic diastolic, with mult HTN, meds, on imdur, consult CV, performance status likely poor at basline weakness debility, pt and ot History of Present Illness History of Present Illness blood cx 05/09, may be contaminant, will call ID, for HR > 100 Vitals Vitals Vital Signs Date Time Temp Pulse Resp B/P (MAP) Pulse Ox O2 Delivery O2 Flow Rate FiO2 07/16/19 11:04 90 Nasal Cannula 3.0 07/16/19 11:00 97.7 102 16 127/57 (80) 97.7 Physical Exam General: Alert, Oriented X3, Cooperative, No acute distress Heart: Regular rate, Normal S1, Normal S2, Other (3/6 systolic murmur to TRACIE border) Lungs: Clear Abdomen: Soft, No tenderness Extremities: No clubbing, Other (1-2+ bilateral LE pitting edema) Skin: No breakdown, No significant lesion Review of Systems Review of Systems weakness no Assessment and Plan Assessmemt and Plan Problems Medical Problems: (1) Acute respiratory failure Status: Acute Comment Review of Relevant I have reviewed the following items vidal (where applicable) has been applied. Labs Laboratory Tests Test 07/14/19 18:27 07/14/19 19:05 07/15/19 03:30 White Blood Count 7.0 x10^3/uL (4.0-11.0) 5.5 x10^3/uL (4.0-11.0) Red Blood Count 3.72 x10^6/uL (3.50-5.40) 3.53 x10^6/uL (3.50-5.40) Hemoglobin 11.6 g/dL (12.0-15.5) 11.2 g/dL (12.0-15.5) Hematocrit 34.3 % (36.0-47.0) 32.6 % (36.0-47.0) Mean Corpuscular Volume 92 fL (79-100) 92 fL (79-100) Mean Corpuscular Hemoglobin 31 pg (25-35) 32 pg (25-35) Mean Corpuscular Hemoglobin Concent 34 g/dL (31-37) 34 g/dL (31-37) Red Cell Distribution Width 16.3 % (11.5-14.5) 15.6 % (11.5-14.5) Platelet Count 305 x10^3/uL (140-400) 287 x10^3/uL (140-400) Neutrophils (%) (Auto) 57 % (31-73) 85 % (31-73) Lymphocytes (%) (Auto) 25 % (24-48) 14 % (24-48) Monocytes (%) (Auto) 9 % (0-9) 1 % (0-9) Eosinophils (%) (Auto) 8 % (0-3) 0 % (0-3) Basophils (%) (Auto) 1 % (0-3) 0 % (0-3) Neutrophils # (Auto) 4.0 x10^3/uL (1.8-7.7) 4.7 x10^3/uL (1.8-7.7) Lymphocytes # (Auto) 1.8 x10^3/uL (1.0-4.8) 0.7 x10^3/uL (1.0-4.8) Monocytes # (Auto) 0.6 x10^3/uL (0.0-1.1) 0.1 x10^3/uL (0.0-1.1) Eosinophils # (Auto) 0.6 x10^3/uL (0.0-0.7) 0.0 x10^3/uL (0.0-0.7) Basophils # (Auto) 0.0 x10^3/uL (0.0-0.2) 0.0 x10^3/uL (0.0-0.2) Sodium Level 143 mmol/L (136-145) 141 mmol/L (136-145) Potassium Level 3.9 mmol/L (3.5-5.1) 4.4 mmol/L (3.5-5.1) Chloride Level 105 mmol/L (98-107) 104 mmol/L (98-107) Carbon Dioxide Level 33 mmol/L (21-32) 29 mmol/L (21-32) Anion Gap 5 (6-14) 8 (6-14) Blood Urea Nitrogen 17 mg/dL (7-20) 19 mg/dL (7-20) Creatinine 0.9 mg/dL (0.6-1.0) 1.1 mg/dL (0.6-1.0) Estimated GFR (Cockcroft-Gault) 61.2 48.6 BUN/Creatinine Ratio 19 (6-20) Glucose Level 126 mg/dL (70-99) 205 mg/dL (70-99) Lactic Acid Level 1.2 mmol/L (0.4-2.0) Calcium Level 9.2 mg/dL (8.5-10.1) 8.9 mg/dL (8.5-10.1) Magnesium Level 2.1 mg/dL (1.8-2.4) Total Bilirubin 0.4 mg/dL (0.2-1.0) Aspartate Amino Transf (AST/SGOT) 22 U/L (15-37) Alanine Aminotransferase (ALT/SGPT) 22 U/L (14-59) Alkaline Phosphatase 76 U/L (46-116) Creatine Kinase 112 U/L (26-192) Creatine Kinase MB (Mass) 2.3 ng/mL (0.0-3.6) Creatine Kinase MB Relative Index 2.1 % (0-4) Troponin I Quantitative < 0.017 ng/mL (0.000-0.055) TI-Auh-G-Type Natriuretic Peptide 846 pg/mL (0-124) Total Protein 6.8 g/dL (6.4-8.2) Albumin 3.8 g/dL (3.4-5.0) Albumin/Globulin Ratio 1.3 (1.0-1.7) Procalcitonin < 0.10 ng/mL (0.00-0.10) Thyroid Stimulating Hormone (TSH) 1.770 uIU/mL (0.358-3.74) Influenza Type A Antigen Negative (NEGATIVE) Influenza Type B Antigen Negative (NEGATIVE) Microbiology 07/14/19 Blood Culture - Preliminary, Resulted NO GROWTH AFTER 1 DAY Medications Current Medications Albuterol/ Ipratropium (Duoneb) 3 ml 1X ONCE NEB Last administered on 07/14/19at 19:55; Start 07/14/19 at 18:30; Stop 07/14/19 at 18:31; Status DC Methylprednisolone Sodium Succinate (SOLU-Medrol 125MG VIAL) 125 mg 1X ONCE IV Last administered on 07/14/19at 19:12; Start 07/14/19 at 18:30; Stop 07/14/19 at 18:31; Status DC Levofloxacin/ Dextrose 100 ml @ 100 mls/hr 1X ONCE IV Last administered on 07/14/19at 22:04; Start 07/14/19 at 22:00; Stop 07/14/19 at 22:59; Status DC Ondansetron HCl (Zofran) 4 mg PRN Q8HRS PRN IV NAUSEA/VOMITING; Start 07/14/19 at 22:15; Stop 07/15/19 at 22:14; Status DC Albuterol/ Ipratropium (Duoneb) 3 ml RTQID NEB Last administered on 07/15/19at 08:15; Start 07/15/19 at 08:00; Stop 07/15/19 at 10:14; Status DC Benzonatate (Tessalon Perle) 100 mg [id number] PO Last administered on 07/16/19at 08:54; Start 07/15/19 at 02:00 Acetaminophen (Tylenol) 325 mg PRN Q6HRS PRN PO MILD PAIN / TEMP Last administered on 07/15/19at 02:45; Start 07/15/19 at 02:00 Acetaminophen (Tylenol) 650 mg PRN Q6HRS PRN PO MILD PAIN / TEMP; Start 07/15/19 at 02:00 Albuterol Sulfate (Ventolin Neb Soln) 2.5 mg PRN Q4HRS PRN NEB SHORTNESS OF BREATH; Start 07/15/19 at 05:30; Stop 07/15/19 at 08:27; Status DC Albuterol Sulfate (Ventolin Neb Soln) 2.5 mg PRN Q2HR PRN NEB SHORTNESS OF BREATH; Start 07/15/19 at 08:30; Status Cancel Albuterol Sulfate (Ventolin Neb Soln) 2.5 mg PRN Q6HRS PRN INH SHORTNESS OF BREATH Last administered on 07/16/19at 00:31; Start 07/15/19 at 09:45 Apixaban (Eliquis) 5 mg BID PO Last administered on 07/16/19at 08:54; Start 07/15/19 at 21:00 Aspirin (Children'S Aspirin) 81 mg DAILY PO Last administered on 07/16/19 08:54; Start 07/16/19 at 09:00 Atorvastatin Calcium (Lipitor) 40 mg QHS PO Last administered on 07/15/19 20:34; Start 07/15/19 at 21:00 Diltiazem HCl (Cardizem 24hr Cd) 120 mg DAILY PO Last administered on 07/16/19 08:55; Start 07/15/19 at 10:00 Furosemide (Lasix) 10 mg DAILY PO Last administered on 07/15/19at 10:12; Start 07/15/19 at 10:00; Stop 07/16/19 at 08:06; Status DC Haloperidol (Haldol) 1 mg PRN Q8HRS PRN PO AGITATION; Start 07/15/19 at 09:45 Haloperidol (Haldol) 2 mg HS PO Last administered on 07/15/19 20:35; Start 07/15/19 at 21:00 Isosorbide Mononitrate (Imdur) 30 mg DAILY PO Last administered on 07/16/19 08:53; Start 07/15/19 at 10:00 Levothyroxine Sodium (Synthroid) 88 mcg DAILY PO Last administered on 07/16/19 08:54; Start 07/16/19 at 09:00 Lisinopril (Prinivil) 20 mg DAILY PO Last administered on 07/16/19 08:55; Start 07/15/19 at 10:00 Magnesium Hydroxide (Milk Of Magnesia) 2,400 mg PRN DAILY PRN PO CONSTIPATION; Start 07/15/19 at 09:45 Memantine (Namenda) 10 mg DAILY PO Last administered on 07/16/19 08:54; Start 07/15/19 at 10:00 Metoprolol Succinate (Toprol Xl) 25 mg DAILY PO Last administered on 07/16/19 08:55; Start 07/15/19 at 10:00 Nitroglycerin (Nitrostat) 0.4 mg PRN Q5MIN PRN SL CHEST PAIN; Start 07/15/19 at 09:45 Potassium Chloride (Klor-Con) 20 meq DAILY PO Last administered on 07/16/19 08:55; Start 07/15/19 at 10:00 Triamcinolone Acetonide (Kenalog 0.1%) 1 mayank PRN BID PRN TP .; Start 07/15/19 at 09:45 Non-Formulary Medication (Alendronate Sodium (Fosamax)) 1 tab WEEKLY PO ; Start 07/22/19 at 09:00; Status UNV Vitamin D (Vitamin D3) 1,000 unit DAILY PO ; Start 07/15/19 at 10:00; Stop 07/15/19 at 09:57; Status DC Citalopram Hydrobromide (CeleXA) 10 mg DAILY PO ; Start 07/15/19 at 11:00 Guaifenesin (Robitussin) 200 mg PRN Q4HRS PRN PO COUGH; Start 07/15/19 at 10:15 Multivitamins (Thera M Plus) 1 tab DAILY PO Last administered on 07/16/19at 08:54; Start 07/15/19 at 10:00 Fish Oil (Fish Oil) 1,000 mg DAILY PO Last administered on 07/16/19at 08:53; Start 07/15/19 at 10:00 Pantoprazole Sodium (Protonix) 40 mg DAILYAC PO Last administered on 07/16/19at 08:54; Start 07/15/19 at 10:00 Non-Formulary Medication (Ubidecarenone (Coenzyme Q10)) 10 mg DAILY PO ; Start 07/16/19 at 09:00; Status UNV Albuterol/ Ipratropium (Duoneb) 3 ml RTQID NEB Last administered on 07/16/19at 11:03; Start 07/15/19 at 12:00 Vitamin D (Vitamin D3) 2,000 unit DAILY PO Last administered on 07/16/19at 08:54; Start 07/15/19 at 10:00 Levofloxacin (Levaquin) 500 mg DAILY06 PO ; Start 07/15/19 at 12:00; Stop 07/15/19 at 11:46; Status DC Levofloxacin (Levaquin) 250 mg DAILY06 PO Last administered on 07/16/19at 05:29; Start 07/15/19 at 12:00 Furosemide (Lasix) 1 mg 1X ONCE IVP ; Start 07/15/19 at 12:15; Stop 07/15/19 at 12:20; Status DC Furosemide (Lasix) 20 mg 1X ONCE IVP Last administered on 07/15/19at 12:35; Start 07/15/19 at 12:30; Stop 07/15/19 at 12:31; Status DC Lactobacillus Rhamnosus (Culturelle) 1 cap BID PO Last administered on 07/16/19at 08:54; Start 07/15/19 at 21:00 Furosemide (Lasix) 20 mg DAILY PO Last administered on 07/16/19at 08:54; Start 07/16/19 at 09:00 Active Scripts Active Haloperidol 0.5 Mg Tablet 1 Mg PO Q8H PRN 30 Days Haloperidol 2 Mg Tablet 2 Mg PO HS 30 Days Milk Of Magnesia (Magnesium Hydroxide) 400 Mg/5 Ml Oral.susp 2,400 Mg PO PRN DAILY PRN 14 Days Reported Escitalopram Oxalate 5 Mg Tablet 5 Mg PO DAILY Lisinopril 20 Mg Tablet 1 Tab PO DAILY Levothyroxine Sodium 88 Mcg Tablet 1 Tab PO DAILY Anoro Ellipta 62.5-25 Mcg Inh (Umeclidinium Brm/Vilanterol Tr) 1 Each Disk.w.dev 1 Each IH DAILY Triamcinolone Acetonide 0.1% Oint (Triamcinolone Acetonide) 15 Gm Oint...g. 1 Mayank TP PRN BID MIX WITH EUCERIN DIRECTED BY PHYSICIAN Proair Hfa Inhaler (Albuterol Sulfate) 8.5 Gm Hfa.aer.ad 2 Puff INH PRN Q6HRS PRN Potassium Chloride (Potassium Chloride) 20 Meq Tablet.er 20 Meq PO DAILY Protonix (Pantoprazole Sodium) 20 Mg Tablet.dr 40 Mg PO DAILY Fish Oil 1,000 mg Softgel ([place]-3/Dha/Epa/Fish Oil) 1,000 Mg Capsule 1,000 Mg PO DAILY NITROGLYCERIN SubLingual (Nitroglycerin) 0.4 Mg Tab.subl 0.4 Mg SL PRN Q5MIN PRN Multivitamins (Multivitamin) 1 Each Tablet 1 Tab PO DAILY Metoprolol Succinate ( Xl ) (Metoprolol Succinate) 25 Mg Tab.er.24h 25 Mg PO DAILY Namenda (Memantine Hcl) 10 Mg Tablet 10 Mg PO DAILY Isosorbide Mononitrate Er (Isosorbide Mononitrate) 30 Mg Tab.er.24h 30 Mg PO DAILY Guaifenesin 400 Mg Tablet 400 Mg PO PRN BID Lasix (Furosemide) 20 Mg Tablet 10 Mg PO DAILY Eliquis (Apixaban) 5 Mg Tablet 5 Mg PO BID Cardizem Cd (Diltiazem Hcl) 180 Mg Cap.er.24h 120 Mg PO DAILY Coenzyme Q10 (Ubidecarenone) 10 Mg Capsule 10 Mg PO DAILY Vitamin D (Cholecalciferol (Vitamin D3)) 2,000 Unit Capsule 1 Cap PO DAILY Lipitor (Atorvastatin Calcium) 40 Mg Tablet 1 Tab PO QHS Aspirin 81 Mg Tab.chew 1 Tab PO DAILY Fosamax (Alendronate Sodium) 70 Mg Tablet 1 Tab PO WEEKLY Vitals/I & O Vital Sign - Last 24 Hours 07/15/19 07/15/19 07/15/19 07/15/19 15:00 15:13 18:59 20:00 Temp 98.4 98.0 98.4 98.0 Pulse 78 85 Resp 18 20 B/P (MAP) 104/47 (66) 138/60 (86) Pulse Ox 92 92 O2 Delivery Nasal Cannula Nasal Cannula Nasal Cannula Nasal Cannula O2 Flow Rate 2.0 2.0 2.0 2.0 07/15/19 07/15/19 07/16/19 07/16/19 20:21 22:34 00:36 03:00 Temp 98.1 97.9 98.1 97.9 Pulse 77 70 Resp 16 18 B/P (MAP) 104/44 (64) 119/54 (75) Pulse Ox 96 95 96 93 O2 Delivery Nasal Cannula Nasal Cannula Nasal Cannula Nasal Cannula O2 Flow Rate 2.0 2.0 2.0 2.0 07/16/19 07/16/19 07/16/19 07/16/19 07:00 07:58 08:01 08:07 Temp 98.1 98.1 Pulse 89 Resp 16 B/P (MAP) 123/64 (83) Pulse Ox 90 90 92 O2 Delivery Room Air Nasal Cannula Nasal Cannula O2 Flow Rate 2.0 2.0 3.0 07/16/19 07/16/19 07/16/19 07/16/19 08:53 08:55 08:55 08:55 Pulse 89 89 89 89 B/P (MAP) 123/64 123/64 123/64 123/64 07/16/19 07/16/19 11:00 11:04 Temp 97.7 97.7 Pulse 102 Resp 16 B/P (MAP) 127/57 (80) Pulse Ox 93 90 O2 Delivery Room Air Nasal Cannula O2 Flow Rate 3.0 Intake and Output 07/15/19 07/15/19 07/16/19 15:00 23:00 07:00 Intake Total 120 ml 200 ml 300 ml Output Total 550 ml 750 ml 750 ml Balance -430 ml -550 ml -450 ml Nutrition Consultation Dietary Evaluation: Recommendations by RD: Dietary education by RD, Increase Calorie Intake, Protein supplementation Comments: REC continue cardiac diet ensure tid mvi Expected Outcomes/Goals: to meet >75% est nutr needs Malnutrition Findings: Body Fat Depletion (Non Severe: Mild Depletion Weight Status: Underweight ISADORA COMER MD Jul 16, 2019 12:13
--- NOTE | 2019-07-16 13:35 | NUR ---
SW following. Discussed with RN, pt from home with daughter. SW is familiar with pt and pt's daughter, Josue from last admission. Pt went to [facility] last time. Pt reporting she does not want to go back to her daughter's home as her daughter "berates here and doesn't let her do anything." Pt reports her daughter's health isn't the best and does not want to be a burden on her daughter and wants her to take care of herself also. Pt reporting she wants to go home to her trailer, however she is not sure if her daughter has "swapped it" and if that is even a possibility to go there, pt is also not sure if the trailer has any electricity. Pt reported when her daughter berates her so much she doesn't care if she lives or dies. Pt also stated her daughter takes really good care of her abdominal wound. Pt has dementia and at times struggled to find the words she was trying to say. Pt kept stating she doesn't want her daughter to get in any trouble. SW discussed with pt the discharge options, home to her daughter's home with home health or to nursing home care with medicaid pending. Pt denied to go LTC as she doesn't want to be in a fci. Pt reported she wants to go to assisted living, SW explained unless pt has thousands of dollars there is a wait list to get into the [facility]. Pt reported she does not have thousands of dollars, and she gets $1333 monthly in social security. Pt reported she has been twice and took the higher amount but that just recently the social security office has docked her social security amount for some reason, but did not know how much the new amount is. SW advised pt talk with the [email or web address] about applications to a [facility] assisted living. Pt mentioned her sister Jeanne in [facility], [place] - SW suggested pt talk to Jeanne about possibly staying with her. Pt gave SW permission to speak with her daughter. SW spoke with pt's daughter, Josue. Josue reported pt has been staying with her for 3 weeks since she got out of [facility]. Josue reported [facility] told her pt could not return to the trailer and needed 24/7 care due to her dementia. Josue reported pt forgets a lot and has to be reminded simple things like socks go on first instead of over shoes. Josue believes pt is beyond assisted living and is concerned about who would remind her mother to do things like keep her oxygen on, or to switch on the nebulizer before using it. Josue reported pt often says she wants to go back home and once mentioned about planning to sneak out to go back there. Josue reported her mother does get frustrated and mad at her because she is wanting to do things herself but can't always do it. Josue stated she has been doing a lot of research about dementia and trying to find new ways to make every day life better and easier for pt. Pt didn't want to take her meds one day and overheard Josue speaking with the PCP about this and possibly increasing one of the night meds due to pt waking up in the night panicking, pt got very upset after overhearing this conversation. Jouse understands pt is frustrated and getting mad because it is a new environment and everyone is adjusting to living together again, and pt is struggling with losing her independence. Josue reported pt has [facility], PT/OT/RN/ST and would like for the same agency to come out after discharge from [facility]. Josue declined a SWer to come out as she believes every SWer is contracted with [employer] and her family has had children removed out of family members care and does not want [employer] to be at her home. ALYSIA explained this would not be D[facility], however Josue would not agree to SW. 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 ALYSIA advised Josue to continue to work with [employer] to get medicaid for pt if possible. ALYSIA awaiting call back from [facility] to determine if [employer] has any concerns about the home environment. ALYSIA will continue to follow. RN notified.
[2019-07-16 15:00] VITALS: BP 135/51
[2019-07-16] MEDS: ATORVASTATIN CALCIUM 40 MG TABLET. PO SCH (19:43)
[2019-07-16 19:58] VITALS: BP 153/61
[2019-07-16] MEDS: HALOPERIDOL 2 MG TABLET. PO SCH (19:58)
[2019-07-16 23:06] VITALS: BP 134/61
[2019-07-17 03:21] VITALS: BP 197/78
[2019-07-17 04:18] LABS: BASO % 0 % (0-3); EOS # 0.9 x10^3/uL (0.0-0.7); EOS % 11 % (0-3); HEMATOCRIT 34.3 % (36.0-47.0); HEMOGLOBIN 11.4 g/dL (12.0-15.5); LYMPH % 26 % (24-48); MEAN CORPUSCULAR HEMOGLOBIN 31 pg (25-35); MEAN CORPUSCULAR HGB CONC 33 g/dL (31-37); MEAN CORPUSCULAR VOLUME 93 fL (79-100); MONO # 0.6 x10^3/uL (0.0-1.1); MONO % 8 % (0-9); NEUT # 4.2 x10^3/uL (1.8-7.7); NEUT % 55 % (31-73); PLATELET COUNT 255 x10^3/uL (140-400); RED BLOOD COUNT 3.68 x10^6/uL (3.50-5.40); RED CELL DISTRIBUTION WIDTH 16.3 % (11.5-14.5); WHITE BLOOD COUNT 7.7 x10^3/uL (4.0-11.0)
[2019-07-17 04:35] LABS: ALBUMIN 3.3 g/dL (3.4-5.0); CALCIUM 8.9 mg/dL (8.5-10.1); CREATININE 0.9 mg/dL (0.6-1.0); GFR 61.2; POTASSIUM 3.9 mmol/L (3.5-5.1); TOTAL BILIRUBIN 0.3 mg/dL (0.2-1.0); TOTAL PROTEIN 6.5 g/dL (6.4-8.2)
[2019-07-17 07:00] VITALS: BP 146/64
[2019-07-17] MEDS: IPRATRPIUM/ALBUTEROL 0.5/2.5MG 3 ML NEBU. NEB SCH ×2 (07:35→11:39)
[2019-07-17] MEDS: PANTOPRAZOLE 40 MG TABLET.DR. PO SCH (07:40)
--- NOTE | 2019-07-17 08:17 | NUR ---
LATE NOTE ALYSIA spoke with Cecile from [facility] around 1630 yesterday (07/16/2019) regarding pt not wanting to go home. Cecile reported she doesn't have any concerns about pt returning to live with her daughter. Cecile stated they are butting heads some because pt does not listen and does what she wants when she wants to do it. Cecile can tell both pt and her daughter are getting frustrated with each other but that they have only been doing this for 3 weeks so it will take some getting used to it. Cecile reports she can tell pt is being provided food, getting her meds and that her daughter has been taking care of the dressings on her wounds. Cecile plans on talking with both pt and her daughter and provide more support for getting used to living together again. ALYSIA has no concerns about pt returning home with her daughter at this time. ANABELLA notified. Addendum: 07/17/19 at 1223 by JORJE HATFIELD ALYSIA faxed clinicals and orders to [facility]. Pt discharging home with daughter and home health. ANABELLA notified.
[2019-07-17] MEDS ORDERED: LEVO250T7 PO (08:51)
--- NOTE | 2019-07-17 08:55 | SNU/HH DC ---
DISCHARGE WITH HOME HEALTH DISCHARGE INFORMATION: Discharge Date: Jul 17, 2019 Final Diagnosis: Problems Medical Problems: (1) Acute respiratory failure Status: Acute Condition on Discharge: Stable CODE STATUS: Code Status: Full HOME HEALTH: Face to Face: I certify this patient is under my care and that I, or a nurse practitioner or physician's railways assistant working with me, had a face to face encounter that meets the physician face to face encounter requirements with this patient on 07/16. Medical Complications: COPD Long-Term For: Assess Cardiopulm Status, Assess & Educate Safety RN For Eval/Treatment: Yes Physical Therapy For: Evalulation/Treatment Occupational Therapy For: Evaluation/Treatment Pt Meets Homebound Status: Poor coordination w/ amb., Unsteady balance w/ amb,, Other: (chronic resp failure) POST DISCHARGE ORDERS: Activity Instructions for Disc: Avoid exertion, Walk in house Weight Bearing Status after Di: As tolerated DIET AFTER DISCHARGE: Cardiac Wound/Incision Care: Keep wound/cast CDI CHECKS AFTER DISCHARGE: Checks after discharge: Check blood press - daily, Check your Temp as needed, Weigh Yourself Daily Comment: adn respiratory therapy FOLLOW-UP: Follow up with: pulm 2 weeks TREATMENT/EQUIPMENT ORDERS: Adaptive Equipment Issued: None Discharge Respiratory Equipmen: Oxygen CERTIFICATION STATEMENT: Certification Statement: Certification Statement: Based on the above finding, I certify that this patient is confined to the home and needs intermittent residential care, physical t herapy and/or speech therapy, or continues to need occupational therapy.~ This patient is under my care, and I have initiated the establishment of the plan of care.~ This patient will be followed by myself or a community physician who will periodically review the plan of care. Home Meds Active Scripts Levofloxacin (LEVOFLOXACIN) 250 Mg Tablet, 250 MG PO DAILY06 for COPD bronchitis, #5 TAB Prov:ISADORA COMER MD 07/17/19 Haloperidol (HALOPERIDOL) 0.5 Mg Tablet, 1 MG PO Q8H PRN for AGITATION for 30 Days, #180 TAB Prov:MELLISA KEY MD 05/15/19 Haloperidol (HALOPERIDOL) 2 Mg Tablet, 2 MG PO HS for agitation for 30 Days, #30 TAB Prov:MELLISA KEY MD 05/15/19 Magnesium Hydroxide (MILK OF MAGNESIA) 400 Mg/5 Ml Oral.susp, 2400 MG PO PRN DAILY PRN for CONSTIPATION for 14 Days, #[facility] Prov:RUBEN GARCIA MD 07/20/18 Reported Medications Escitalopram Oxalate (Escitalopram Oxalate) 5 Mg Tablet, 5 MG PO DAILY for depression 05/05/19 Lisinopril (LISINOPRIL) 20 Mg Tablet, 1 TAB PO DAILY for HTN, #30 TAB 5 Refills 05/04/19 Levothyroxine Sodium (LEVOTHYROXINE SODIUM) 88 Mcg Tablet, 1 TAB PO DAILY for th yroid, #30 TAB 5 Refills 09/20/18 Umeclidinium Brm/Vilanterol Tr (ANORO ELLIPTA 62.5-25 MCG INH) 1 Each Dis k.w.dev, 1 EACH IH DAILY for copd, INH 07/10/18 Triamcinolone Acetonide (TRIAMCINOLONE ACETONIDE 0.1% OINT) 15 Gm Oint...g., 1 ARCELIA TP PRN BID for rash, #1 TUBE MIX WITH EUCERIN DIRECTED BY PHYSICIAN 07/10/18 Albuterol Sulfate (PROAIR HFA INHALER) 8.5 Gm Hfa.aer.ad, 2 PUFF INH PRN Q6HRS PRN for SHORTNESS OF BREATH, INHALER 0 Refills 07/10/18 Potassium Chloride (POTASSIUM CHLORIDE ) 20 Meq Tablet.er, 20 MEQ PO DAILY for supplement, TAB.SR 07/10/18 Pantoprazole Sodium (PROTONIX) 20 Mg Tablet.dr, 40 MG PO DAILY for gerd, TAB 07/10/18 [place]-3/Dha/Epa/Fish Oil (Fish Oil 1,000 mg Softgel) 1,000 Mg Capsule, 1000 MG PO DAILY for supplement, CAP 07/10/18 Nitroglycerin (NITROGLYCERIN SubLingual) 0.4 Mg Tab.subl, 0.4 MG SL PRN Q5MIN PRN for CHEST PAIN, BOTTLE 07/10/18 Multivitamin (MULTIVITAMINS) 1 Each Tablet, 1 TAB PO DAILY for supplement, #90 TAB 3 Refills 07/10/18 Metoprolol Succinate (METOPROLOL SUCCINATE ( XL )) 25 Mg Tab.er.24h, 25 MG PO DAILY for FOR HYPERTENSION, #30 TAB 0 Refills 07/10/18 Memantine Hcl (NAMENDA) 10 Mg Tablet, 10 MG PO DAILY for dementia, TAB 07/10/18 Isosorbide Mononitrate (ISOSORBIDE MONONITRATE ER) 30 Mg Tab.er.24h, 30 MG PO DAILY for htn, TAB.SR 07/10/18 Guaifenesin (GUAIFENESIN) 400 Mg Tablet, 400 MG PO PRN BID for congestion, TAB 07/10/18 Furosemide (LASIX) 20 Mg Tablet, 10 MG PO DAILY for dfiuretic, TAB 07/10/18 Apixaban (ELIQUIS) 5 Mg Tablet, 5 MG PO BID for blood thinner, TAB 07/10/18 Diltiazem Hcl (CARDIZEM CD) 180 Mg Cap.er.24h, 120 MG PO DAILY for FOR HYP ERTENSION, #30 CAP 0 Refills 07/10/18 Ubidecarenone (COENZYME Q10) 10 Mg Capsule, 10 MG PO DAILY for supplement, CAP 07/10/18 Cholecalciferol (Vitamin D3) (VITAMIN D) 2,000 Unit Capsule, 1 CAP PO DAILY for supplement, #30 CAP 3 Refills 07/10/18 Atorvastatin Calcium (LIPITOR) 40 Mg Tablet, 1 TAB PO QHS for high cholesterol, #90 TAB 1 Refill 07/10/18 Aspirin (ASPIRIN) 81 Mg Tab.chew, 1 TAB PO DAILY for heart health, #30 TAB 3 Refills 07/10/18 Alendronate Sodium (FOSAMAX) 70 Mg Tablet, 1 TAB PO WEEKLY for osteoporosis, #4 TAB 11 Refills 07/10/18 ISADORA COMER MD Jul 17, 2019 08:55
--- NOTE | 2019-07-17 08:58 | PDOC3 ---
Discharge Summary Visit Information Date of Admission: Jul 14, 2019 Date of Discharge: Jul 17, 2019 Final Diagnosis acute on chronic hypoxic and hypercarbic respiratory failure COPD with acute bronchitis, steroids, nebs, levaquin, consult pulm CHF, acute on chronic diastolic, with mult HTN, meds, on imdur, consult CV, performance status likely poor at basline weakness debility, pt and ot Problems Medical Problems: (1) Acute respiratory failure Status: Acute Brief Hospital Course Allergies Allergies Coded Allergies Type Severity Reaction Last Updated Verified morphine Allergy Severe facial swelling 10/22/18 Yes NSAIDS (Non-Steroidal Anti-Inflamma Allergy Intermediate 10/22/18 Yes atropine Allergy Intermediate 10/22/18 Yes bacitracin Allergy Intermediate 10/22/18 Yes belladonna alkaloids Allergy Intermediate 10/22/18 Yes diphenhydramine Allergy Intermediate 10/22/18 Yes gramicidin D Allergy Intermediate 10/22/18 Yes hyoscyamine Allergy Intermediate 10/22/18 Yes ketorolac Allergy Intermediate 10/22/18 Yes neomycin Allergy Intermediate 10/22/18 Yes penicillin G Allergy Intermediate 10/22/18 Yes penicillin V Allergy Intermediate 10/22/18 Yes phenobarbital Allergy Intermediate 10/22/18 Yes polymyxin B Allergy Intermediate 10/22/18 Yes scopolamine Allergy Intermediate 10/22/18 Yes nickel Allergy Mild severe itching 10/22/18 Yes silver Allergy Mild severe itching 10/22/18 Yes Vital Signs Vital Signs Date Time Temp Pulse Resp B/P (MAP) Pulse Ox O2 Delivery O2 Flow Rate FiO2 07/17/19 07:36 95 Nasal Cannula 3.0 07/17/19 07:00 98.3 72 16 146/64 (91) 98.3 Lab Results Laboratory Tests Test 07/17/19 03:40 White Blood Count 7.7 x10^3/uL (4.0-11.0) Red Blood Count 3.68 x10^6/uL (3.50-5.40) Hemoglobin 11.4 g/dL (12.0-15.5) Hematocrit 34.3 % (36.0-47.0) Mean Corpuscular Volume 93 fL (79-100) Mean Corpuscular Hemoglobin 31 pg (25-35) Mean Corpuscular Hemoglobin Concent 33 g/dL (31-37) Red Cell Distribution Width 16.3 % (11.5-14.5) Platelet Count 255 x10^3/uL (140-400) Neutrophils (%) (Auto) 55 % (31-73) Lymphocytes (%) (Auto) 26 % (24-48) Monocytes (%) (Auto) 8 % (0-9) Eosinophils (%) (Auto) 11 % (0-3) Basophils (%) (Auto) 0 % (0-3) Neutrophils # (Auto) 4.2 x10^3/uL (1.8-7.7) Lymphocytes # (Auto) 2.0 x10^3/uL (1.0-4.8) Monocytes # (Auto) 0.6 x10^3/uL (0.0-1.1) Eosinophils # (Auto) 0.9 x10^3/uL (0.0-0.7) Basophils # (Auto) 0.0 x10^3/uL (0.0-0.2) Sodium Level 140 mmol/L (136-145) Potassium Level 3.9 mmol/L (3.5-5.1) Chloride Level 103 mmol/L (98-107) Carbon Dioxide Level 35 mmol/L (21-32) Anion Gap 2 (6-14) Blood Urea Nitrogen 28 mg/dL (7-20) Creatinine 0.9 mg/dL (0.6-1.0) Estimated GFR (Cockcroft-Gault) 61.2 BUN/Creatinine Ratio 31 (6-20) Glucose Level 121 mg/dL (70-99) Calcium Level 8.9 mg/dL (8.5-10.1) Total Bilirubin 0.3 mg/dL (0.2-1.0) Aspartate Amino Transf (AST/SGOT) 22 U/L (15-37) Alanine Aminotransferase (ALT/SGPT) 20 U/L (14-59) Alkaline Phosphatase 67 U/L (46-116) Total Protein 6.5 g/dL (6.4-8.2) Albumin 3.3 g/dL (3.4-5.0) Albumin/Globulin Ratio 1.0 (1.0-1.7) Laboratory Tests Test 07/17/19 03:40 White Blood Count 7.7 x10^3/uL (4.0-11.0) Red Blood Count 3.68 x10^6/uL (3.50-5.40) Hemoglobin 11.4 g/dL (12.0-15.5) Hematocrit 34.3 % (36.0-47.0) Mean Corpuscular Volume 93 fL (79-100) Mean Corpuscular Hemoglobin 31 pg (25-35) Mean Corpuscular Hemoglobin Concent 33 g/dL (31-37) Red Cell Distribution Width 16.3 % (11.5-14.5) Platelet Count 255 x10^3/uL (140-400) Neutrophils (%) (Auto) 55 % (31-73) Lymphocytes (%) (Auto) 26 % (24-48) Monocytes (%) (Auto) 8 % (0-9) Eosinophils (%) (Auto) 11 % (0-3) Basophils (%) (Auto) 0 % (0-3) Neutrophils # (Auto) 4.2 x10^3/uL (1.8-7.7) Lymphocytes # (Auto) 2.0 x10^3/uL (1.0-4.8) Monocytes # (Auto) 0.6 x10^3/uL (0.0-1.1) Eosinophils # (Auto) 0.9 x10^3/uL (0.0-0.7) Basophils # (Auto) 0.0 x10^3/uL (0.0-0.2) Sodium Level 140 mmol/L (136-145) Potassium Level 3.9 mmol/L (3.5-5.1) Chloride Level 103 mmol/L (98-107) Carbon Dioxide Level 35 mmol/L (21-32) Anion Gap 2 (6-14) Blood Urea Nitrogen 28 mg/dL (7-20) Creatinine 0.9 mg/dL (0.6-1.0) Estimated GFR (Cockcroft-Gault) 61.2 BUN/Creatinine Ratio 31 (6-20) Glucose Level 121 mg/dL (70-99) Calcium Level 8.9 mg/dL (8.5-10.1) Total Bilirubin 0.3 mg/dL (0.2-1.0) Aspartate Amino Transf (AST/SGOT) 22 U/L (15-37) Alanine Aminotransferase (ALT/SGPT) 20 U/L (14-59) Alkaline Phosphatase 67 U/L (46-116) Total Protein 6.5 g/dL (6.4-8.2) Albumin 3.3 g/dL (3.4-5.0) Albumin/Globulin Ratio 1.0 (1.0-1.7) Brief Hospital Course Ms. Jimenez is a 74 old cough, dyspnea, worsening hypoxia, Discharge Information Condition at Discharge: Improved Follow Up: Weeks Disposition/Orders: D/C to Home w/ HH Scheduled Alendronate Sodium (Fosamax) 70 Mg Tablet, 1 TAB PO WEEKLY for osteoporosis, #4 Ref 11 (Reported) Entered as Reported by: ANA PUTNAM on 07/10/181757 Last Action: Converted on 07/15/19940 by ISADORA COMER Apixaban (Eliquis) 5 Mg Tablet, 5 MG PO BID for blood thinner, (Reported) Entered as Reported by: ANA PUTNAM on 07/10/181758 Last Taken: Unknown Dose on 07/14/19 Last Action: Continued on 07/15/19940 by ISADORA COMER Aspirin (Aspirin) 81 Mg Tab.chew, 1 TAB PO DAILY for heart health, #30 Ref 3 (Reported) Entered as Reported by: ANA PUTNAM on 07/10/181757 Last Action: Continued on 07/15/19940 by ISADORA COMER Atorvastatin Calcium (Lipitor) 40 Mg Tablet, 1 TAB PO QHS for high cholesterol, #90 Ref 1 (Reported) Entered as Reported by: ANA PUTNAM on 07/10/181757 Last Taken: Unknown Dose on 07/14/19 Last Action: Continued on 07/15/19940 by ISADORA COMER Cholecalciferol (Vitamin D3) (Vitamin D) 2,000 Unit Capsule, 1 CAP PO DAILY for supplement, #30 Ref 3 (Reported) Entered as Reported by: ANA PUTNAM on 07/10/181758 Last Action: Converted on 07/15/19940 by ISADORA COMER Diltiazem Hcl (Cardizem Cd) 180 Mg Cap.er.24h, 120 MG PO DAILY for FOR HYPERTENSION, #30 Ref 0 (Reported) Entered as Reported by: ANA PUTNAM on 07/10/181758 Last Taken: Unknown Dose on 07/14/19 Last Action: Continued on 07/15/19940 by ISADORA COMER Escitalopram Oxalate (Escitalopram Oxalate) 5 Mg Tablet, 5 MG PO DAILY for depression, (Reported) Entered as Reported by: LARA CARROLL on 05/05/19310 Last Action: Converted on 07/15/19940 by ISADORA COMER Furosemide (Lasix) 20 Mg Tablet, 10 MG PO DAILY for dfiuretic, (Reported) Entered as Reported by: ANA PUTNAM on 07/10/181758 Last Action: Continued on 07/15/19940 by ISADORA COMER Guaifenesin (Guaifenesin) 400 Mg Tablet, 400 MG PO PRN BID for congestion, (Reported) Entered as Reported by: ANA PUTNAM on 07/10/181758 Last Action: Converted on 07/15/19940 by ISADORA COMER Haloperidol (Haloperidol) 2 Mg Tablet, 2 MG PO HS for agitation for 30 Days, #30 Prescribed by: MELLISA KEY MD on 05/15/19 08 Last Action: Continued on 07/15/19940 by ISADORA COMER Isosorbide Mononitrate (Isosorbide Mononitrate Er) 30 Mg Tab.er.24h, 30 MG PO DAILY for htn, (Reported) Entered as Reported by: ANA PUTNAM on 07/10/181758 Last Taken: Unknown Dose on 07/14/19 Last Action: Continued on 07/15/19940 by ISADORA COMER Levofloxacin (Levofloxacin) 250 Mg Tablet, 250 MG PO DAILY06 for COPD bronchitis, #5 Prescribed by: ISADORA COMER on 07/17/19 0851 Levothyroxine Sodium (Levothyroxine Sodium) 88 Mcg Tablet, 1 TAB PO DAILY for thyroid, #30 Ref 5 (Reported) Entered as Reported by: SEN SILVERMAN on 09/20/18 0537 Last Action: Continued on 07/15/19940 by ISADORA COMER Lisinopril (Lisinopril) 20 Mg Tablet, 1 TAB PO DAILY for HTN, #30 Ref 5 (Reported) Entered as Reported by: KYLIE SMITH on 05/04/191925 Last Action: Continued on 07/15/19940 by ISADORA COMER Memantine Hcl (Namenda) 10 Mg Tablet, 10 MG PO DAILY for dementia, (Reported) Entered as Reported by: ANA PUTNAM on 07/10/181758 Last Action: Continued on 07/15/19940 by ISADORA COMER Metoprolol Succinate (Metoprolol Succinate ( Xl )) 25 Mg Tab.er.24h, 25 MG PO DAILY for FOR HYPERTENSION, #30 Ref 0 (Reported) Entered as Reported by: ANA PUTNAM on 07/10/181758 Last Taken: Unknown Dose on 07/14/19 Last Action: Continued on 07/15/19940 by ISADORA COMER Multivitamin (Multivitamins) 1 Each Tablet, 1 TAB PO DAILY for supplement, #90 Ref 3 (Reported) Entered as Reported by: ANA PUTNAM on 07/10/181758 Last Action: Converted on 07/15/19940 by ISADORA COMER Leland-3/Dha/Epa/Fish Oil (Fish Oil 1,000 mg Softgel) 1,000 Mg Capsule, 1,000 MG PO DAILY for supplement, (Reported) Entered as Reported by: ANA PUTNAM on 07/10/181758 Last Taken: Unknown Dose on 07/14/19 Last Action: Converted on 07/15/19940 by ISADORA COMER Pantoprazole Sodium (Protonix) 20 Mg Tablet.dr, 40 MG PO DAILY for gerd, (Reported) Entered as Reported by: ANA PUTNAM on 07/10/181802 Last Action: Converted on 07/15/19940 by ISADORA COMER Potassium Chloride (Potassium Chloride ) 20 Meq Tablet.er, 20 MEQ PO DAILY for supplement, (Reported) Entered as Reported by: ANA PUTNAM on 07/10/181802 Last Action: Continued on 07/15/19940 by ISADORA COMER Triamcinolone Acetonide (Triamcinolone Acetonide 0.1% Oint) 15 Gm Oint...g., 1 ARCELIA TP PRN BID for rash, #1 (Reported) MIX WITH EUCERIN DIRECTED BY PHYSICIAN Entered as Reported by: ANA PUTNAM on 07/10/181802 Last Action: Continued on 07/15/19940 by ISADORA COMER Ubidecarenone (Coenzyme Q10) 10 Mg Capsule, 10 MG PO DAILY for supplement, (Reported) Entered as Reported by: ANA PUTNAM on 07/10/181758 Last Action: Converted on 07/15/19940 by ISADORA COMER Umeclidinium Brm/Vilanterol Tr (Anoro Ellipta 62.5-25 Mcg Inh) 1 Each Disk.w.dev, 1 EACH IH DAILY for copd, (Reported) Entered as Reported by: ANA PUTNAM on 07/10/181802 Last Taken: Unknown Dose on 07/14/19 Last Action: Converted on 07/15/19940 by ISADORA COMER Scheduled PRN Albuterol Sulfate (Proair Hfa Inhaler) 8.5 Gm Hfa.aer.ad, 2 PUFF INH PRN Q6HRS PRN for SHORTNESS OF BREATH, Ref 0 (Reported) Entered as Reported by: ANA PUTNAM on 07/10/181802 Last Taken: Unknown Dose on 07/14/19 Last Action: Continued on 07/15/19940 by ISADORA COMER Haloperidol (Haloperidol) 0.5 Mg Tablet, 1 MG PO Q8H PRN for AGITATION for 30 Days, #180 Prescribed by: MELLISA KEY MD on 05/15/19 0826 Last Action: Continued on 07/15/19940 by ISADORA COMER Magnesium Hydroxide (Milk Of Magnesia) 400 Mg/5 Ml Oral.susp, 2,400 MG PO PRN DAILY PRN for CONSTIPATION for 14 Days, #120 Prescribed by: RUBEN GARCIA MD on 07/20/18 1212 Last Action: Continued on 07/15/19940 by ISADORA COMER Nitroglycerin (NITROGLYCERIN SubLingual) 0.4 Mg Tab.subl, 0.4 MG SL PRN Q5MIN PRN for CHEST PAIN, (Reported) Entered as Reported by: ANA PUTNAM on 07/10/181758 Last Action: Continued on 07/15/19940 by ISADORA COMER Patient Instructions Patient Instructions > 30 min face to face ISADORA COMER MD Jul 17, 2019 08:58
[2019-07-17] MEDS: MULTIVITAMIN with MINERAL TABLET. PO SCH (09:00)
--- NOTE | 2019-07-17 09:02 | PDOC ---
Infectious Disease Note Vital Sign Vital Signs Vital Signs Date Time Temp Pulse Resp B/P (MAP) Pulse Ox O2 Delivery O2 Flow Rate FiO2 07/17/19 07:36 95 Nasal Cannula 3.0 07/17/19 07:00 98.3 72 16 146/64 (91) 98.3 Labs Lab Laboratory Tests Test 07/17/19 03:40 White Blood Count 7.7 x10^3/uL (4.0-11.0) Red Blood Count 3.68 x10^6/uL (3.50-5.40) Hemoglobin 11.4 g/dL (12.0-15.5) Hematocrit 34.3 % (36.0-47.0) Mean Corpuscular Volume 93 fL (79-100) Mean Corpuscular Hemoglobin 31 pg (25-35) Mean Corpuscular Hemoglobin Concent 33 g/dL (31-37) Red Cell Distribution Width 16.3 % (11.5-14.5) Platelet Count 255 x10^3/uL (140-400) Neutrophils (%) (Auto) 55 % (31-73) Lymphocytes (%) (Auto) 26 % (24-48) Monocytes (%) (Auto) 8 % (0-9) Eosinophils (%) (Auto) 11 % (0-3) Basophils (%) (Auto) 0 % (0-3) Neutrophils # (Auto) 4.2 x10^3/uL (1.8-7.7) Lymphocytes # (Auto) 2.0 x10^3/uL (1.0-4.8) Monocytes # (Auto) 0.6 x10^3/uL (0.0-1.1) Eosinophils # (Auto) 0.9 x10^3/uL (0.0-0.7) Basophils # (Auto) 0.0 x10^3/uL (0.0-0.2) Sodium Level 140 mmol/L (136-145) Potassium Level 3.9 mmol/L (3.5-5.1) Chloride Level 103 mmol/L (98-107) Carbon Dioxide Level 35 mmol/L (21-32) Anion Gap 2 (6-14) Blood Urea Nitrogen 28 mg/dL (7-20) Creatinine 0.9 mg/dL (0.6-1.0) Estimated GFR (Cockcroft-Gault) 61.2 BUN/Creatinine Ratio 31 (6-20) Glucose Level 121 mg/dL (70-99) Calcium Level 8.9 mg/dL (8.5-10.1) Total Bilirubin 0.3 mg/dL (0.2-1.0) Aspartate Amino Transf (AST/SGOT) 22 U/L (15-37) Alanine Aminotransferase (ALT/SGPT) 20 U/L (14-59) Alkaline Phosphatase 67 U/L (46-116) Total Protein 6.5 g/dL (6.4-8.2) Albumin 3.3 g/dL (3.4-5.0) Albumin/Globulin Ratio 1.0 (1.0-1.7) Micro Microbiology 07/14/19 Blood Culture - Preliminary, Resulted NO GROWTH AFTER 2 DAYS Objective Assessment pt seen, consult dictated Plan Plan of Care / RA MONSIVAIS MD Jul 17, 2019 09:02
[2019-07-17] MEDS: CITALOPRAM 10 MG TABLET. PO SCH (09:14)
[2019-07-17] MEDS: BENZONATATE 100 MG CAPSULE. PO SCH (09:14)
[2019-07-17] MEDS: METOPROLOL SUCC 24HR ER 25 MG TAB.ER.24H. PO SCH (09:14)
[2019-07-17] MEDS: OMEGA-3 FATTY ACIDS/FISH OIL 1,000 MG CAPSULE. PO SCH (09:14)
[2019-07-17] MEDS: ASPIRIN CHEWABLE 81 MG TABLET. PO SCH (09:14)
[2019-07-17] MEDS: ISOSORBIDE MONONITRATE ER 30 MG TAB.ER.24H PO SCH (09:15)
[2019-07-17] MEDS: CHOLECALCIFEROL (VITAMIN D3) 1,000 UNIT TABLET PO SCH (09:15)
[2019-07-17] MEDS: LEVOTHYROXINE 88 MCG TABLET PO SCH (09:15)
[2019-07-17] MEDS: LACTOBACILLUS RHAMNOSUS GG 1 CAPSULE. PO SCH (09:15)
[2019-07-17] MEDS: MEMANTINE 10 MG TABLET. PO SCH (09:15)
[2019-07-17] MEDS: FUROSEMIDE 20 MG TABLET PO SCH (09:15)
[2019-07-17] MEDS: LISINOPRIL 20 MG TABLET PO SCH (09:16)
[2019-07-17] MEDS: POTASSIUM CHLORIDE 20 MEQ TABLET.ER. PO SCH (09:16)
[2019-07-17] MEDS: APIXABAN 5 MG TABLET. PO SCH (09:16)
[2019-07-17 11:00] VITALS: BP 134/79
--- NOTE | 2019-07-17 11:13 | PDOC ---
PULMONARY PROGRESS NOTES Subjective less soa/cough Vitals Vital Signs Date Time Temp Pulse Resp B/P (MAP) Pulse Ox O2 Delivery O2 Flow Rate FiO2 07/17/19 09:16 72 146/64 07/17/19 07:36 95 Nasal Cannula 3.0 07/17/19 07:00 98.3 16 98.3 General: Alert, No acute distress Lungs: Clear Cardiovascular: S1, S2 Abdomen: Soft, Non-tender Extremities: No Edema Labs Laboratory Tests Test 07/17/19 03:40 White Blood Count 7.7 x10^3/uL (4.0-11.0) Red Blood Count 3.68 x10^6/uL (3.50-5.40) Hemoglobin 11.4 g/dL (12.0-15.5) Hematocrit 34.3 % (36.0-47.0) Mean Corpuscular Volume 93 fL (79-100) Mean Corpuscular Hemoglobin 31 pg (25-35) Mean Corpuscular Hemoglobin Concent 33 g/dL (31-37) Red Cell Distribution Width 16.3 % (11.5-14.5) Platelet Count 255 x10^3/uL (140-400) Neutrophils (%) (Auto) 55 % (31-73) Lymphocytes (%) (Auto) 26 % (24-48) Monocytes (%) (Auto) 8 % (0-9) Eosinophils (%) (Auto) 11 % (0-3) Basophils (%) (Auto) 0 % (0-3) Neutrophils # (Auto) 4.2 x10^3/uL (1.8-7.7) Lymphocytes # (Auto) 2.0 x10^3/uL (1.0-4.8) Monocytes # (Auto) 0.6 x10^3/uL (0.0-1.1) Eosinophils # (Auto) 0.9 x10^3/uL (0.0-0.7) Basophils # (Auto) 0.0 x10^3/uL (0.0-0.2) Sodium Level 140 mmol/L (136-145) Potassium Level 3.9 mmol/L (3.5-5.1) Chloride Level 103 mmol/L (98-107) Carbon Dioxide Level 35 mmol/L (21-32) Anion Gap 2 (6-14) Blood Urea Nitrogen 28 mg/dL (7-20) Creatinine 0.9 mg/dL (0.6-1.0) Estimated GFR (Cockcroft-Gault) 61.2 BUN/Creatinine Ratio 31 (6-20) Glucose Level 121 mg/dL (70-99) Calcium Level 8.9 mg/dL (8.5-10.1) Total Bilirubin 0.3 mg/dL (0.2-1.0) Aspartate Amino Transf (AST/SGOT) 22 U/L (15-37) Alanine Aminotransferase (ALT/SGPT) 20 U/L (14-59) Alkaline Phosphatase 67 U/L (46-116) Total Protein 6.5 g/dL (6.4-8.2) Albumin 3.3 g/dL (3.4-5.0) Albumin/Globulin Ratio 1.0 (1.0-1.7) Laboratory Tests Test 07/17/19 03:40 White Blood Count 7.7 x10^3/uL (4.0-11.0) Red Blood Count 3.68 x10^6/uL (3.50-5.40) Hemoglobin 11.4 g/dL (12.0-15.5) Hematocrit 34.3 % (36.0-47.0) Mean Corpuscular Volume 93 fL (79-100) Mean Corpuscular Hemoglobin 31 pg (25-35) Mean Corpuscular Hemoglobin Concent 33 g/dL (31-37) Red Cell Distribution Width 16.3 % (11.5-14.5) Platelet Count 255 x10^3/uL (140-400) Neutrophils (%) (Auto) 55 % (31-73) Lymphocytes (%) (Auto) 26 % (24-48) Monocytes (%) (Auto) 8 % (0-9) Eosinophils (%) (Auto) 11 % (0-3) Basophils (%) (Auto) 0 % (0-3) Neutrophils # (Auto) 4.2 x10^3/uL (1.8-7.7) Lymphocytes # (Auto) 2.0 x10^3/uL (1.0-4.8) Monocytes # (Auto) 0.6 x10^3/uL (0.0-1.1) Eosinophils # (Auto) 0.9 x10^3/uL (0.0-0.7) Basophils # (Auto) 0.0 x10^3/uL (0.0-0.2) Sodium Level 140 mmol/L (136-145) Potassium Level 3.9 mmol/L (3.5-5.1) Chloride Level 103 mmol/L (98-107) Carbon Dioxide Level 35 mmol/L (21-32) Anion Gap 2 (6-14) Blood Urea Nitrogen 28 mg/dL (7-20) Creatinine 0.9 mg/dL (0.6-1.0) Estimated GFR (Cockcroft-Gault) 61.2 BUN/Creatinine Ratio 31 (6-20) Glucose Level 121 mg/dL (70-99) Calcium Level 8.9 mg/dL (8.5-10.1) Total Bilirubin 0.3 mg/dL (0.2-1.0) Aspartate Amino Transf (AST/SGOT) 22 U/L (15-37) Alanine Aminotransferase (ALT/SGPT) 20 U/L (14-59) Alkaline Phosphatase 67 U/L (46-116) Total Protein 6.5 g/dL (6.4-8.2) Albumin 3.3 g/dL (3.4-5.0) Albumin/Globulin Ratio 1.0 (1.0-1.7) Medications Active Scripts Medications Dose Route/Sig Max Daily Dose Days Date Category Dose Instructions Haloperidol 0.5 Mg Tablet 1 Mg PO Q8H PRN 30 05/15/19 Rx Haloperidol 2 Mg Tablet 2 Mg PO HS 30 05/15/19 Rx Escitalopram Oxalate 5 Mg Tablet 5 Mg PO DAILY 05/05/19 Reported Lisinopril 20 Mg Tablet 1 Tab PO DAILY 05/04/19 Reported Levothyroxine Sodium 88 Mcg Tablet 1 Tab PO DAILY 09/20/18 Reported Milk Of Magnesia (Magnesium Hydroxide) 400 Mg/5 Ml Oral.susp 2,400 Mg PO PRN DAILY PRN 14 07/20/18 Rx Anoro Ellipta 62.5-25 Mcg Inh (Umeclidinium Brm/Vilanterol Tr) 1 Each Disk.w.dev 1 Each IH DAILY 07/10/18 Reported Triamcinolone Acetonide 0.1% Oint (Triamcinolone Acetonide) 15 Gm Oint...g. 1 Mayank TP PRN BID 07/10/18 Reported MIX WITH EUCERIN DIRECTED BY PHYSICIAN Proair Hfa Inhaler (Albuterol Sulfate) 8.5 Gm Hfa.aer.ad 2 Puff INH PRN Q6HRS PRN 07/10/18 Reported Potassium Chloride (Potassium Chloride) 20 Meq Tablet.er 20 Meq PO DAILY 07/10/18 Reported Protonix (Pantoprazole Sodium) 20 Mg Tablet.dr 40 Mg PO DAILY 07/10/18 Reported Fish Oil 1,000 mg Softgel (Nora-3/Dha/Epa/Fish Oil) 1,000 Mg Capsule 1,000 Mg PO DAILY 07/10/18 Reported NITROGLYCERIN SubLingual (Nitroglycerin) 0.4 Mg Tab.subl 0.4 Mg SL PRN Q5MIN PRN 07/10/18 Reported Multivitamins (Multivitamin) 1 Each Tablet 1 Tab PO DAILY 07/10/18 Reported Metoprolol Succinate ( Xl ) (Metoprolol Succinate) 25 Mg Tab.er.24h 25 Mg PO DAILY 07/10/18 Reported Namenda (Memantine Hcl) 10 Mg Tablet 10 Mg PO DAILY 07/10/18 Reported Isosorbide Mononitrate Er (Isosorbide Mononitrate) 30 Mg Tab.er.24h 30 Mg PO DAILY 07/10/18 Reported Guaifenesin 400 Mg Tablet 400 Mg PO PRN BID 07/10/18 Reported Lasix (Furosemide) 20 Mg Tablet 10 Mg PO DAILY 07/10/18 Reported Eliquis (Apixaban) 5 Mg Tablet 5 Mg PO BID 07/10/18 Reported Cardizem Cd (Diltiazem Hcl) 180 Mg Cap.er.24h 120 Mg PO DAILY 07/10/18 Reported Coenzyme Q10 (Ubidecarenone) 10 Mg Capsule 10 Mg PO DAILY 07/10/18 Reported Vitamin D (Cholecalciferol (Vitamin D3)) 2,000 Unit Capsule 1 Cap PO DAILY 07/10/18 Reported Lipitor (Atorvastatin Calcium) 40 Mg Tablet 1 Tab PO QHS 07/10/18 Reported Aspirin 81 Mg Tab.chew 1 Tab PO DAILY 07/10/18 Reported Fosamax (Alendronate Sodium) 70 Mg Tablet 1 Tab PO WEEKLY 07/10/18 Reported Impression . 1. Acute hypoxic respiratory failure secondary to acute exacerbation of chronic obstructive pulmonary disease and acute bronchitis. 2. No definite consolidation seen on the chest x-ray. 3. Long history of tobacco use. 4. Influenza screen negative and afebrile. Plan . 1. We will continue with present oxygen and keep saturation 92 and above. 2. DuoNebs. 3. Continue Levaquin. 4. Continue her home medications. 5. Anticipate dc today AYESHA BURT MD Jul 17, 2019 11:12
--- NOTE | 2019-07-17 12:18 | CONS ---
DATE OF CONSULTATION: 07/17/2019 REQUESTING PHYSICIAN: Dr. Gold. REASON FOR CONSULTATION: Blood culture positive. HISTORY OF PRESENT ILLNESS: This is a 74-year-old female with history of COPD, CHF, who came in with shortness of breath. The patient was diagnosed with respiratory failure secondary to exacerbation of chronic obstructive pulmonary disease. The patient was put on Levaquin and the blood culture turned positive with 1/4 bottles with Gram-positive cocci in clusters, hence consultation. The patient is alert, awake. The patient says she is feeling back to her normal and ready to go home. Denies any shortness of breath. Denies any nausea, vomiting, diarrhea, chest pain, abdominal pain, urinary symptoms, bowel symptoms, headache, or visual symptoms. PAST MEDICAL HISTORY: Positive for CHF, COPD, hypertension, hyperlipidemia, AFib, hypothyroidism. PAST SURGICAL HISTORY: Has had appendicectomy, cholecystectomy and hysterectomy. SOCIAL HISTORY: Negative for current smoking. ALLERGIES: SHE IS ALLERGIC TO MULTIPLE MEDICATIONS INCLUDING PENICILLIN. CURRENT MEDICATIONS: Reviewed. REVIEW OF SYSTEMS: As per HPI, all other systems reviewed are negative. PHYSICAL EXAMINATION: GENERAL: Alert, awake female, not in distress. VITAL SIGNS: Stable, afebrile. HEENT: NAD. NECK: Supple, no JVP, no lymphadenopathy. LUNGS: Clear. HEART: S1, S2 regular. ABDOMEN: Benign. EXTREMITIES: No edema, cyanosis. SKIN: Unremarkable. NEUROLOGIC: The patient is alert, awake and appropriate. No focal neurologic deficit. LABORATORY DATA: White count is normal. BUN and creatinine is normal. Influenza screen negative. Blood culture as I mentioned. Chest x-ray, some atelectasis, no consolidation. IMPRESSION: 1. Blood culture 1/4 gram-positive cocci, most likely to be contaminant. 2. Chronic obstructive pulmonary disease exacerbation. 3. Congestive heart failure. 4. Hypertension. RECOMMENDATIONS: The patient can be discharged from the ID standpoint of view on p.o. levofloxacin. The patient is already on oxygen at home and if needed, plus or minus steroids. Thank you very much, Dr. Gold, for giving me the opportunity to participate in this patient's care. RA MONSIVAIS MD DR: MELVIN/yossi JOB#: [id number] / [id number]
[2019-07-22] MEDS ORDERED: NON FORMULARY ITEM (Alendronate Sodium (Fosamax) 1 TAB) PO SCH (09:00)
== END 2019-07-17 14:01 | disposition home health service (06) | DRG 291 ==
LOC: ER 18:06 → 4 NORTH 21:49
PROVIDERS: ADMIT Internal Medicine; ATTEND Internal Medicine
DX: I11.0 Hypertensive heart disease with heart failure (principal); J96.21 Acute and chronic respiratory failure with hypoxia; J96.22 Acute and chronic respiratory failure with hypercapnia; J44.0 Chronic obstructive pulmonary disease with (acute) lower respiratory infection; J44.1 Chronic obstructive pulmonary disease with (acute) exacerbation; I50.33 Acute on chronic diastolic (congestive) heart failure; E03.9 Hypothyroidism, unspecified; E78.00 Pure hypercholesterolemia, unspecified; E78.5 Hyperlipidemia, unspecified; F03.90 Unspecified dementia, unspecified severity, without behavioral disturbance, psychotic disturbance, mood disturbance, and anxiety; F41.9 Anxiety disorder, unspecified; I25.10 Atherosclerotic heart disease of native coronary artery without angina pectoris; I48.91 Unspecified atrial fibrillation; J20.9 Acute bronchitis, unspecified; K22.70 Barrett's esophagus without dysplasia; M81.0 Age-related osteoporosis without current pathological fracture; Z79.01 Long term (current) use of anticoagulants; Z87.891 Personal history of nicotine dependence; Z90.49 Acquired absence of other specified parts of digestive tract; Z90.710 Acquired absence of both cervix and uterus; K21.9 Gastro-esophageal reflux disease without esophagitis; M19.90 Unspecified osteoarthritis, unspecified site; Z88.0 Allergy status to penicillin; Z88.8 Allergy status to other drugs, medicaments and biological substances; Z91.048 Other nonmedicinal substance allergy status
CPT/HCPCS: 36415; 71045; 80048; 80053; 82553; 83605; 83735; 83880; 84145; 84443; 84484; 85025; 87040; 87205; 87804; 93005; 94640; 94760; 96365; 96375; J1940; J1956; J2930; 97530; 97535; 99285-25; G0378; J7613